=== PATIENT | male | born 1950 | race Caucasian/White ===

== ENCOUNTER 2018-02-06 12:51 | Emergency (ER) | payer OTHER, SELFPAY ==
[2018-02-06 12:51] VITALS: BP 156/76; PULSE 68; RESP 16; TEMP 36.6; O2SAT 98; BMI 35.1
--- NOTE | 2018-02-06 13:03 | RAD_ITS ---
STUDY: X-RAY - LEFT HAND REASON FOR EXAM: Male, 67 years old. Wound. Infection. Amputation 3 weeks ago. Diabetes. TECHNIQUE: 3 view(s) of the hand. COMPARISON: None. FINDINGS: There has been amputation of the third digit through the mid third middle phalanx. There is no gross destructive process of the bones, but osteomyelitis cannot be excluded. No soft tissue air. Heavily calcified arteries of the hand and digits consistent with diabetes. Normal visualized carpal bones. Normal carpal articulations Normal carpometacarpal articulation of the thumb. Normal second through fifth carpometacarpal joints. Normal metacarpi. Normal metacarpophalangeal joint of the thumb. Normal interphalangeal joint of the thumb. Normal proximal and distal phalanges of the thumb. Normal metacarpophalangeal joints of the second through fifth fingers. Normal proximal and distal interphalangeal joints of the second through fifth fingers. Normal phalanges of the second, fourth and fifth fingers. RAD/Hand Min 3 Views IMPRESSION: Amputation of the third digit through the mid third middle phalanx. There is no gross destructive process of the bones, but osteomyelitis cannot be excluded. No soft tissue air. Electronically Signed: Luis Garcia MD at 14:26 EST , Service support ,
--- NOTE | 2018-02-06 13:05 | ED.VISSUMM ---
- ER Visit Summary Date of Service: 02/06/18 Chief Complaint: Left middle finger pain, s/p amputation History of Present Illness: The patient is a 67 M who has left finger pain and drainage. The patient had an amputation of the distal part of the left middle finger 5 weeks ago. He had a revision 3 weeks ago. After the revision a culture grew out E. coli. He was on antibiotics. He states for the past week he has been doing well without any swelling or drainage. Yesterday the drainage and swelling reappeared. His surgeries was performed by Dr. Junior Beasley at [facility]. He is a kidney transplant recipient and is on immunosuppressants. Physical Examination: Vital signs reviewed. Left hand exam reveals a partial limitation of the third digit. He does have sutures in place. There is purulent drainage and it is malodorous. It is tender to palpation. He does have left hand swelling. Test Results: White blood cell count 12.3, ESR 15. Hand x-ray reveals no gross destructive process Emergency Department Course and Treatment: Zosyn IV. I spoke with Dr. Beasley at [facility]. He states that since the patient is complicated with his diabetes and kidney transplant he would recommend transfer to [facility]. I discussed this with Dr. Negron and he will accept the patient in transfer Treatment Plan: [] Disposition: Transfer Impression: Left third finger surgical site infection status post amputation This note was generated with [employer] dictation software. It may contain incorrect words, spelling, and punctuation that were not noted in review of the chart prior to signing ED Disposition - Plan for ED Patient: Chief Complaint: Wound Check Referrals: Mikayla Lopez MD [Primary Care Provider] -
--- NOTE | 2018-02-06 13:13 | ED.DCSUM_ITS ---
- ER Visit Summary Date of Service: 02/06/18 Chief Complaint: Left middle finger pain, s/p amputation History of Present Illness: The patient is a 67 M who has left finger pain and drainage. The patient had an amputation of the distal part of the left middle finger 5 weeks ago. He had a revision 3 weeks ago. After the revision a culture grew out E. coli. He was on antibiotics. He states for the past week he has been doing well without any swelling or drainage. Yesterday the drainage and swelling reappeared. His surgeries was performed by Dr. Junior Beasley at [place]. He is a kidney transplant recipient and is on immunosuppressants. Physical Examination: Vital signs reviewed. Left hand exam reveals a partial limitation of the third digit. He does have sutures in place. There is purulent drainage and it is malodorous. It is tender to palpation. He does have left hand swelling. Test Results: White blood cell count 12.3, ESR 15. Hand x-ray reveals no gross destructive process Emergency Department Course and Treatment: Zosyn IV. I spoke with Dr. Beasley at [facility]. He states that since the patient is complicated with his diabetes and kidney transplant he would recommend transfer to [facility]. I discussed this with Dr. Negron and he will accept the patient in transfer Treatment Plan: [] Disposition: Transfer Impression: Left third finger surgical site infection status post amputation This note was generated with [employer] dictation software. It may contain incorrect words, spelling, and punctuation that were not noted in review of the chart prior to signing ED Disposition - Plan for ED Patient: Chief Complaint: Wound Check Referrals: Mikayla Lopez MD [Primary Care Provider] -
[2018-02-06 13:42] LABS: Absolute Neutrophil Count 10.2 X10^3/uL (2.0-7.7); Anion Gap 3 (5-15); BUN 20 mg/dL (7-18); BUN/Creat Ratio 16.8 RATIO (10-20); Basophil# 0.04 X10^3/uL; Basophil% 0.3 % (0-1); Calcium,Total 8.9 mg/dL (8.5-10.1); Chloride 106 mmol/L (98-107); Creatinine, Serum 1.19 mg/dL (0.70-1.30); EST Glomerular Filtration Rate 65 mL/min (>60); Est Glom Filt Rate - Afr Amer 79 mL/min (>60); Glucose 110 mg/dL (74-106); Hematocrit 42.1 % (40-54); Hemoglobin 13.3 g/dl (13.0-16.5); Lymphocyte % 10.5 % (19-41); Mean Corp Hgb Conc 31.6 g/gl (32-36); Mean Corpuscular Hgb 28.3 pg (27.0-32.0); Mean Corpuscular Volume 89.6 fL (80-94); Mean Platelet Vol. 10.4 fl (6.2-12.0); Monocyte# 0.72 X10^3/uL; Monocyte% 5.8 % (0-10); Neutrophil # 10.17 X10^3/uL (2.7-7.7); Neutrophil % 82.5 % (47-70); Platelet Count 216 K/mm3 (150-450); Potassium 4.7 mmol/L (3.5-5.1); RBC Distribution Width CV 13.8 % (11.6-14.6); RBC Distribution Width SD 45.3 fl (35.1-43.9); Sodium Level 139 mmol/L (136-145); White Blood Count 12.3 K/mm3 (4.4-11.0)
[2018-02-06 13:44] LABS: POSITIVE COUNT NO; POSITIVE DIFFERENTIAL NO; POSITIVE MORPHOLOGY NO
[2018-02-06 13:49] LABS: Erythrocyte Sedimentation Rate 15 mm/hr (0-20)
[2018-02-06] MEDS: Piperacil/Tazobactam 3.375 GM/50 ML ML IV (14:59)
[2018-02-06 15:47] VITALS: BP 139/74; PULSE 65; RESP 17; O2SAT 96
[2018-02-06 17:13] VITALS: BP 197/82; PULSE 67; RESP 16; O2SAT 96
== END 2018-02-06 18:24 | disposition short-term general hospital (02) ==
LOC: ED 14:06
PROVIDERS: Emergency Provider Emergency Medicine; Family Provider Internal Medicine; PCP Internal Medicine
DX: T81.41XA Infection following a procedure, superficial incisional surgical site, initial encounter (principal); Y83.8 Other surgical procedures as the cause of abnormal reaction of the patient, or of later complication, without mention of misadventure at the time of the procedure; Z94.0 Kidney transplant status; Z89.022 Acquired absence of left finger(s); E11.9 Type 2 diabetes mellitus without complications; Z79.899 Other long term (current) drug therapy; Z79.4 Long term (current) use of insulin; Z79.82 Long term (current) use of aspirin
CPT/HCPCS: 73130; 80048; 85025; 85652; 96365; 96366; 99284; J7030

== ENCOUNTER → 2018-02-22 17:33 | Outpatient (CLI) | payer OTHER, SELFPAY ==
[2018-02-06 12:51] VITALS: BMI 35.1
[2018-02-22 17:55] LABS: Absolute Lymphocyte Count 1.86 X10^3/ul (0.83-4.51); Absolute Neutrophil Count 5.6 X10^3/uL (2.0-7.7); Basophil# 0.04 X10^3/uL; Basophil% 0.5 % (0-1); Eosinophil# 0.26 X10^3/uL; Hematocrit 37.2 % (40-54); Hemoglobin 11.6 g/dl (13.0-16.5); Lymphocyte # 1.86 X10^3/ul (4.0); Lymphocyte % 21.3 % (19-41); Mean Corp Hgb Conc 31.2 g/gl (32-36); Mean Corpuscular Hgb 28.2 pg (27.0-32.0); Mean Corpuscular Volume 90.3 fL (80-94); Mean Platelet Vol. 10.2 fl (6.2-12.0); Monocyte# 0.88 X10^3/uL; Monocyte% 10.1 % (0-10); Neutrophil # 5.56 X10^3/uL (2.7-7.7); Neutrophil % 63.6 % (47-70); Platelet Count 183 K/mm3 (150-450); RBC Distribution Width CV 14.6 % (11.6-14.6); RBC Distribution Width SD 47.3 fl (35.1-43.9); Red Blood Count 4.12 M/mm3 (4.6-6.2); White Blood Count 8.7 K/mm3 (4.4-11.0)
[2018-02-22 17:56] LABS: POSITIVE COUNT NO; POSITIVE DIFFERENTIAL NO; POSITIVE MORPHOLOGY NO
[2018-02-22 17:59] LABS: CRP 5.06 mg/L (0.0-3.0); Creatinine, Serum 1.34 mg/dL (0.70-1.30); EST Glomerular Filtration Rate 57 mL/min (>60); Est Glom Filt Rate - Afr Amer 69 mL/min (>60); Potassium 4.8 mmol/L (3.5-5.1)
[2018-02-22 19:36] LABS: Erythrocyte Sedimentation Rate 19 mm/hr (0-20)
== END ==
PROVIDERS: Family Provider Internal Medicine; PCP Internal Medicine
DX: M65.9 Synovitis and tenosynovitis, unspecified (principal); B95.2 Enterococcus as the cause of diseases classified elsewhere; B96.20 Unspecified Escherichia coli [E. coli] as the cause of diseases classified elsewhere
CPT/HCPCS: 36415; 82565; 84132; 85025; 85652; 86140

== ENCOUNTER 2018-03-01 12:34 | Outpatient (RCR) | payer OTHER, SELFPAY ==
[2018-03-01 12:54] LABS: Erythrocyte Sedimentation Rate 24 mm/hr (0-20)
[2018-03-01 13:01] LABS: Absolute Lymphocyte Count 1.53 X10^3/ul (0.83-4.51); Absolute Neutrophil Count 4.7 X10^3/uL (2.0-7.7); Basophil# 0.07 X10^3/uL; Eosinophil# 0.24 X10^3/uL; Eosinophils% 3.3 % (0-5); Hemoglobin 12.6 g/dl (13.0-16.5); Lymphocyte # 1.53 X10^3/ul (4.0); Mean Corp Hgb Conc 31.5 g/gl (32-36); Mean Corpuscular Hgb 28.2 pg (27.0-32.0); Mean Corpuscular Volume 89.5 fL (80-94); Mean Platelet Vol. 10.4 fl (6.2-12.0); Monocyte# 0.68 X10^3/uL; Monocyte% 9.3 % (0-10); Neutrophil # 4.71 X10^3/uL (2.7-7.7); Neutrophil % 64.7 % (47-70); Platelet Count 170 K/mm3 (150-450); RBC Distribution Width CV 14.4 % (11.6-14.6); RBC Distribution Width SD 46.9 fl (35.1-43.9); Red Blood Count 4.47 M/mm3 (4.6-6.2); White Blood Count 7.3 K/mm3 (4.4-11.0)
[2018-03-01 13:02] LABS: POSITIVE COUNT NO; POSITIVE DIFFERENTIAL NO; POSITIVE MORPHOLOGY NO
[2018-03-01 13:11] LABS: CRP < 2.90 mg/L (0.0-3.0); Creatinine, Serum 1.17 mg/dL (0.70-1.30); EST Glomerular Filtration Rate 66 mL/min (>60); Est Glom Filt Rate - Afr Amer 80 mL/min (>60); Potassium 4.2 mmol/L (3.5-5.1)
== END 2018-03-01 13:34 | disposition home or self-care (01) ==
LOC: HHLAB 12:34
PROVIDERS: Family Provider Internal Medicine; PCP Internal Medicine
DX: M65.9 Synovitis and tenosynovitis, unspecified (principal)
CPT/HCPCS: 82565; 84132; 85025; 85652; 86140

== ENCOUNTER 2018-11-05 09:23 | Emergency (ER) | payer OTHER, SELFPAY ==
[2018-11-05 09:26] VITALS: BP 146/71; PULSE 58; RESP 18; TEMP 36.4; O2SAT 97; BMI 33.6
--- NOTE | 2018-11-05 09:36 | VDLE_ITS ---
Reason For Study: Swelling Procedure LEFT Exam performed portable in ED. GSV is normal. A preliminary report was called and/or faxed CFV is compressible, spontaneous, phasic, to Abhijit. competent, and demonstrates normal augmentation. FV is compressible, spontaneous, phasic, competent and demonstrates normal augmentation. POP V is compressible, spontaneous, phasic, competent and demonstrates normal augmentation. T/P Trunk is compressible. PTV is compressible. LT PerV is compressible. Interpretation Summary Deep veins of the left lower extremity are patent and compressible segmentally. There is no evidence of left lower extremity deep vein thrombosis. Valvular competence appears intact within the proximal deep venous system on the left . The left great saphenous vein appears patent and compressible segmentally. Ordering Physician: Roberta Lacey Referring Physician: Mikayla Lopez M.D. Performed By: Theresa Altman RVT
--- NOTE | 2018-11-05 09:37 | ED.VIS.GEN ---
History of Present Illness Chief Complaint: Lower Extremity Injury Informant: Patient Onset: Days Narrative: Patient presents to the ED with left lower extremity bruising and edema. He noticed it 4 days ago. He does have a significant history of diabetic neuropathy so does not have feeling in his lower extremities. He denies any known trauma. He has no history of PE/DVT. No recent history of prolonged immobilization malignancy. He was seen at urgent care today and sent in for venous duplex of his left lower extremity. He denies any chest pain or shortness of breath. Past Medical History - Allergies and Home Meds Allergies/Adverse Reactions: Allergies No Known Allergies Allergy (Verified 11/05/18 09:26) Primary Care Physician: Mikayla Lopez MD [Primary Care Provider] - Surgical History: - - Several foot surgeries, wound debridements, fistula. Kidney transplant Smoking Status: Never smoker - Family History Maternal Family History: Reports: No pertinent history Review of Systems General: Denies: Chills, Fever, Sweats Eyes: Denies: Visual changes - bilaterally, Diplopia ENT: Denies: Rhinorrhea, Sore throat Cardiovascular: Denies: Chest pain, Palpitations Respiratory: Denies: Dyspnea, Cough, Dyspnea on exertion Gastrointestinal: Denies: Abdominal pain, Nausea, Vomiting, Diarrhea, Melena, Hematochezia Genitourinary: Denies: Dysuria, Hematuria, Frequency Musculoskeletal: Denies: Back pain, Extremity Pain Skin: Reports: - - Left lower extremity ecchymosis and edema. Denies: Rash, Wounds Neurological: Denies: Headache, Weakness, Numbness Physical Exam Vital Signs/Narrative: Vital Signs Temp Pulse Resp BP Pulse Ox 11/05/18 09:26 97.6 F L 58 L 18 146/71 H 97 General: Well nourished, Well developed, No Acute Distress Head: Normocephalic, Atraumatic Eyes: Perrl, EOMI ENT: Moist mucous membranes, No rhinorrhea Neck: Supple, Nontender Cardiovascular: Regular rate, Regular rhythm, No murmurs Respiratory: No distress, CTA bilaterally, Chest nontender Abdomen: Soft, Nontender, Nondistended, Normal bowel sounds Back: Nontender, Normal Inspection Extremities: No edema, - - Full range of motion of upper and lower extremities. Skin: No rash, - - Localized ecchymosis and edema to the left distal lower extremity, lateral aspect. Is in diameter. Patient is tender to palpation in this region. Neurological: Alert, Oriented x3, Cranial nerves II-XII grossly intact, Normal Strength, Normal Sensation Psychological: Normal affect, Normal Mood Diagnostic/Tx/Re-eval - Medical Decision Making Patient was sent here from urgent care for ultrasound of his left lower extremity to rule out thrombosis. Ultrasound was negative. Patient was educated this is most likely a contusion, he was educated on compression, ice, and [id number] analgesics. He was instructed to follow-up with PCP if symptoms persist or worsen. Educated on signs/symptoms to return to the ED. He is provided discharge instructions. He was agreeable to plan Disposition: Home stable Impression: Left lower extremity contusion ED Disposition - Plan for ED Patient: Disposition: Home or Assisted Living Diagnosis: Contusion Instructions: CONTUSION, Lower Extremity Referrals: Mikayla Lopez MD [Primary Care Provider] -
== END 2018-11-05 10:38 | disposition home or self-care (01) ==
PROVIDERS: Emergency Provider Physician Assistant; Family Provider Internal Medicine; PCP Internal Medicine
DX: S80.12XA Contusion of left lower leg, initial encounter (principal); X58.XXXA Exposure to other specified factors, initial encounter; Y93.9 Activity, unspecified; E11.40 Type 2 diabetes mellitus with diabetic neuropathy, unspecified; Z94.0 Kidney transplant status; Z79.4 Long term (current) use of insulin; Z79.82 Long term (current) use of aspirin; Z79.899 Other long term (current) drug therapy
CPT/HCPCS: 93971; 99282

== ENCOUNTER 2021-03-27 11:18 | Day surgery (SDC) | payer SELFPAY, OTHER ==
[2021-03-27] VITALS (8 sets, daily range): BP systolic 104–179; BP diastolic 62–96; PULSE 60–63; RESP 14–16; TEMP 36.7–37.3; O2SAT 92–100; BMI 33.5
[2021-03-27] MEDS: Lactated Ringers 1,000 ML 15 ML IV ×2 (11:50→13:06)
--- NOTE | 2021-03-27 13:00 | BON_PTH ---
PATIENT: MAHAD SULLIVAN [place] [facility] [id number] AGE/SX: 70/M ROOM: RE03/27/[address]: Dr. Juventino Sanchez DO : 1950 BED: DIS: 03/27/2021 SPEC #: [id number] RECD: 03/27/21 15:22 STATUS: LOS RERamila #: [id number] KINSEY: 03/27/21 13:[address]: Juventino Sanchez DEPT: SURGICAL PATHOLOGY RECD BY: Sridevi Salamanca ENTERED: 03/28/21 07:05 SP TYPE: Bone OTHR DR: Dr. Mikayla Lopez MD Tissues: Finger, NOS Procedures: Decalcification bone/plaque Surgery Specimen Level IV HEADER OPERATION: Ring finger distal interphalangeal joint amputation PRE-OP DIAGNOSIS: Acute osteomyelitis left hand TISSUE SUBMITTED: Left ring finger MICROSCOPIC DIAGNOSIS Left ring finger, amputation: Focal ulceration, acute inflammation and granulation tissue reaction. Underlying bone with acute osteomyelitis. DAVID:cony 04/01/2021 MICROSCOPIC DESCRIPTION Slides are reviewed. GROSS DESCRIPTION Received in fixative is one container labeled with the patient's name and designated left ring finger. The specimen consists of a portion of finger measuring 1.7 x 1.5 x 1.5 cm. A focal area of ulceration is noted at the tip of the finger measuring 0.4 cm in greatest dimension. Nail is also present. Food And Beverage Assistant Manager sections are submitted in two cassettes as follows: 1 ? skin with area of ulceration, 2 ? bone after decalcification. / DAVID:cony 03/28/2021 TC:2 CPT: 14544, 04041
[2021-03-27] MEDS: Cefazolin 2 GM in 0.9% Normal Saline 100 ML IV (13:09)
[2021-03-27] MEDS: Lidocaine 1% (30 ml sdv) 30 ML Vial (13:25)
[2021-03-27] MEDS: Mupirocin Ointment 22gm Tube 1 APPLIC (13:44)
--- NOTE | 2021-03-27 13:49 | PCM.DC ---
Discharge Instructions Follow Up Care Test Results: Test results from this visit will be discussed in further detail at your follow-up appointment, if applicable. Discharge Plan Admission Attending Provider: Juventino Sanchez Primary Care Provider: Mikayla Lopez Instructions Additional Instructions / Restrictions: Follow preprinted instructions from your surgeon's office. Discharge Orders/Prescriptions Prescriptions: New hydrocodone-acetaminophen 5-325 mg tablet 1 tab PO Q6H PRN (Reason: pain) 5 Days Qty: 20 RF: 0 sulfamethoxazole-trimethoprim [Bactrim DS] 800-160 mg tablet 1 tab PO BID 10 Days Qty: 20 RF: 0 Continued aspirin 81 MG tablet 81 mg PO DAILY RF: 0 niacin [Slo-Niacin] 250 MG tablet extended release 500 mg PO DAILY RF: 0 metoprolol tartrate 50 MG tablet 50 mg PO BID RF: 0 rosuvastatin [Crestor] 20 MG tablet 20 mg PO QHS RF: 0 mycophenolate mofetil [CellCept] 500 MG tablet 500 mg PO BID RF: 0 prednisone 2.5 MG tablet 5 mg PO DAILY RF: 0 tacrolimus [Prograf] 1 MG capsule 1 mg PO BID RF: 0 famotidine 20 MG tablet 20 mg PO QHS RF: 0 cholecalciferol (vitamin D3) [Vitamin D3] 1,000 UNIT tablet 2,000 unit PO DAILY RF: 0 insulin aspart U-100 [Novolog Flexpen U-100 Insulin] 100 UNITS/ML insulin pen See Protocol units subcut CONT RF: 0 Referrals / Follow Up: Mikayla Lopez MD [Primary Care Provider] - Juventino Sanchez DO [STAFF PHYSICIAN] - In 1 Week Disposition Disposition (needs filled in before D/C Order can be placed): Home, Self Care
--- NOTE | 2021-03-27 13:49 | PCM.OPRPT ---
Report of Operation Date of Procedure: 03/27/21 Description of Surgical Findings:: Preoperative diagnosis: Left ring finger distal phalanx osteomyelitis Postoperative diagnosis: Left ring finger distal phalanx osteomyelitis Procedure: Left ring finger partial amputation at the middle phalanx level Surgeon: Juventino Sanchez DO Sales Consulting Director: None Anesthesia: MAC with ring block Anesthesiologist: Dr. Gould Complications: None Drains: None Estimated blood loss: 10 cc Urinary output: None IV fluids: Per anesthesia record Specimens: Left ring fingertip for culture Surgical implants: None Surgical indications: This is a 70-year-old male with uncontrolled diabetes mellitus type 2, neuropathy, chronic renal disease with renal transplant, history of finger amputation from infection, history of foot amputation from infection who was seen in the outpatient setting due to a wound on his left ring finger. X-rays and physical exam demonstrated the the wound had exposed distal phalanx. Patient denied prior injury. With the chronically exposed bone, osteomyelitis was evident. I recommended an amputation at the level of at the least the distal interphalangeal joint. The risk, benefits, alternatives to the procedure reviewed with patient at length and he agreed to proceed. Risks included but were not limited to, persistent pain, need for additional amputation, persistent infection, need for additional surgery, DVT or PE, neurovascular injury, finger deformities, loss of warehouse shipper strength, loss of hand function. Patient expressed understand these risks wished proceed with surgery. Description of procedure: Patient was identified in the preoperative holding area by name, medical record number, date of . The operative extremity was marked. All questions answered patient satisfaction and informed site was confirmed. At time of his procedure, patient was brought to the operative suite and positioned supine a standard operating table with all bony prominences being well-padded. MAC anesthesia was administered. I then prepped the base of the finger with rubbing alcohol performed a ring block with 10 cc 1% plain lidocaine. We then prepped and draped the left hand and wrist in normal, sterile orthopedic fashion with Betadine. We then performed a timeout with all parties in attendance in agreement the side, site, operation be performed. No concerns were voiced and elected proceed with surgery. 2 g Ancef was administered prior to the incision by the anesthesia staff. I then applied a turnicot at the base of the left ring finger. I planned a fishmouth incision at the level of the distal interphalangeal joint. Full-thickness incision was made down to bone. I then amputated the distal phalanx at the distal interphalangeal joint. This was sent for culture. I then resected the chondral surface at the tip of the middle phalanx. Slight undermining of the tissues allowed for easy approximation of the soft tissues over the bone. I thoroughly irrigated the wound. Turnicot was removed. Bleeding was slightly sluggish at first but then brisk. I utilized bipolar cautery for hemostasis. I then closed the wound in interrupted simple fashion with 4-0 Prolene suture. Bactroban and bulky sterile compression dressing was then applied. Patient was then safely awoken in the operative suite transferred to his gurney and subsequently to PACU in stable condition. Postoperative plan: Follow-up in 1 week. Maintain surgical dressing until then. Prescription for Bactrim DS for 10 days was provided as well as a prescription for [place]. Nonweightbearing to the operative extremity. No x-rays needed in the office. Written and verbal instructions provided.
== END 2021-03-27 23:59 | disposition home or self-care (01) ==
LOC: SDC 11:22 → AC 11:22
PROVIDERS: PCP Internal Medicine; Referring Provider Student in an Organized Health Care Education/Training Program; Visit Provider Student in an Organized Health Care Education/Training Program
PROC: (CPT 26236; principal; 2021-03-27 12:45)
DX: E13.69 Other specified diabetes mellitus with other specified complication (principal); M86.142 Other acute osteomyelitis, left hand; E11.22 Type 2 diabetes mellitus with diabetic chronic kidney disease; E11.40 Type 2 diabetes mellitus with diabetic neuropathy, unspecified; Z79.4 Long term (current) use of insulin; M84.445A Pathological fracture, left finger(s), initial encounter for fracture; I12.9 Hypertensive chronic kidney disease with stage 1 through stage 4 chronic kidney disease, or unspecified chronic kidney disease; N18.9 Chronic kidney disease, unspecified; E78.00 Pure hypercholesterolemia, unspecified; E66.8 Other obesity; Z71.3 Dietary counseling and surveillance; Z68.34 Body mass index [BMI] 34.0-34.9, adult; Z94.0 Kidney transplant status; Z79.82 Long term (current) use of aspirin; Z79.899 Other long term (current) drug therapy; Z20.822 Contact with and (suspected) exposure to COVID-19
CPT/HCPCS: 26236; 01830; 87426; 88305; 88311; C9803; J7120; J2405

== ENCOUNTER 2021-04-25 11:24 | Day surgery (SDC) | payer SELFPAY, OTHER ==
[2021-04-25] VITALS (7 sets, daily range): BP systolic 103–143; BP diastolic 58–78; PULSE 54–60; RESP 16–18; TEMP 36.3–36.8; O2SAT 91–100; BMI 34.1
[2021-04-25] MEDS: Lactated Ringers 1,000 ML 15 ML IV (12:03)
[2021-04-25 12:21] LABS: Bedside Glucose 201 mg/dL (70-110)
[2021-04-25] MEDS: Cefazolin 2 GM in 0.9% Normal Saline 100 ML IV (13:30)
[2021-04-25] MEDS: Lidocaine 1% (20 ml mdv) 20 ML Vial (13:35)
[2021-04-25] MEDS: Mupirocin Ointment 22gm Tube 1 APPLIC (13:56)
--- NOTE | 2021-04-25 13:57 | PCM.DC ---
Discharge Instructions Follow Up Care Test Results: Test results from this visit will be discussed in further detail at your follow-up appointment, if applicable. Discharge Plan Admission Attending Provider: Juventino Sanchez Primary Care Provider: Mikayla Lopez Instructions Additional Instructions / Restrictions: Follow preprinted instructions from your surgeons office. Discharge Orders/Prescriptions Prescriptions: New doxycycline hyclate 50 mg capsule 50 mg PO BID 14 Days Qty: 28 RF: 0 No Action aspirin 81 MG tablet 81 mg PO DAILY RF: 0 niacin [Slo-Niacin] 250 MG tablet extended release 500 mg PO DAILY RF: 0 metoprolol tartrate 50 MG tablet 50 mg PO BID RF: 0 rosuvastatin [Crestor] 20 MG tablet 20 mg PO QHS RF: 0 mycophenolate mofetil [CellCept] 500 MG tablet 500 mg PO BID RF: 0 prednisone 2.5 MG tablet 5 mg PO DAILY RF: 0 tacrolimus [Prograf] 1 MG capsule 1 mg PO BID RF: 0 famotidine 20 MG tablet 20 mg PO QHS RF: 0 cholecalciferol (vitamin D3) [Vitamin D3] 1,000 UNIT tablet 2,000 unit PO DAILY RF: 0 insulin aspart U-100 [Novolog Flexpen U-100 Insulin] 100 UNITS/ML insulin pen See Protocol units subcut CONT RF: 0 hydrocodone-acetaminophen 5-325 mg tablet 1 tab PO Q6H PRN (Reason: pain) 5 Days Qty: 20 RF: 0 sulfamethoxazole-trimethoprim [Bactrim DS] 800-160 mg tablet 1 tab PO BID 10 Days Qty: 20 RF: 0 Referrals / Follow Up: Mikayla Lopez MD [Primary Care Provider] - Juventino Sanchez DO [STAFF PHYSICIAN] - In 1 Week Disposition Disposition (needs filled in before D/C Order can be placed): Home, Self Care
[2021-04-25 14:11] LABS: Bedside Glucose 162 mg/dL (70-110)
--- NOTE | 2021-04-26 12:02 | OP.PCM_ITS ---
Report of Operation Date of Procedure: 04/25/21 Description of Surgical Findings:: Preoperative diagnosis: Left ring finger amputation dehiscence and deep infection Postoperative diagnosis: Left ring finger amputation dehiscence and deep infection Procedure: Left ring finger revision amputation at the middle phalanx level Surgeon: Juventino Sanchez DO Financial Sales Representative: None Anesthesia: MAC with ring block Anesthesiologist: Dr. Yusuf / Daniel Moss CRNA Complications: None apparent Drains: None Estimated blood loss: 10 cc Urinary output: None IV fluids: Per anesthesia record Specimens: Fluid culture for aerobic, anaerobic, fungal, mycobacterial Surgical implants: None Surgical indications: This is a 70-year-old male with uncontrolled diabetes mellitus type 2, neuropathy, chronic renal disease with renal transplant, history of finger amputation from infection, history of foot amputation from infection who was seen in the outpatient setting due to a wound on his left ring finger. X-rays and physical exam demonstrated the the wound had exposed distal phalanx. Patient denied prior injury. With the chronically exposed bone, osteomyelitis was evident. I recommended an amputation at the level of at the least the distal interphalangeal joint. He underwent this uncomplicated procedure approximately 1 month ago. Sutures removed at 2 weeks and the wound appeared benign. Several days after suture removal, the wound had significant dehiscence. I saw the patient last week and exam demonstrated exposed middle phalanx and complete dehiscence of the amputation site. There was also purulent fluid expressed from the wound in the office. I recommended revision amputation of the left ring finger. The risk, benefits, alternatives to procedure reviewed with patient at length. He agreed to proceed. Informed consent obtained in the office. Description of procedure: Patient was identified in the preoperative holding area by name, medical record number, date of . The operative extremity was marked. All questions answered patient satisfaction and informed site was confirmed. At time of his procedure, patient was brought to the operative suite and positioned supine a standard operating table with all bony prominences being well-padded. MAC anesthesia was administered. I then prepped the base of the finger with rubbing alcohol performed a ring block with 10 cc 1% plain lidocaine. We then prepped and draped the left hand and wrist in normal, sterile orthopedic fashion with Betadine. We then performed a timeout with all parties in attendance in agreement the side, site, operation be performed. No concerns were voiced and elected proceed with surgery. 2 g Ancef was administered prior to the incision by the anesthesia staff. I first attempted to express purulent material from the wound. I was able to express approximately 1 cc of purulence along the volar aspect of the exposed bone. This was swabbed for culture and sent for aerobic, anaerobic, fungal, and mycobacterial cultures. I then excised the peripheral 1 mm of the skin and soft tissue surrounding the bone to a healthy bleeding base. I then debrided approximately 3 mm of additional middle phalanx to reduce tension on the wound. Wound was copiously irrigated with normal saline solution. I reapproximated the dermis with buried 3-0 Vicryl suture and the skin with interrupted simple 4-0 Prolene suture. Bactroban and bulky sterile compression dressing was then applied. Patient was then safely awoken in the operative suite transferred to his rharshaw and subsequently to PACU in stable condition. Postoperative plan: Follow-up in 1 week. Maintain surgical dressing for 3 days then okay to remove and shower. Prescription for doxycycline x14 days was provided. Recommended to oral Tylenol for pain relief. Nonweightbearing to the operative extremity. No x-rays needed in the office. Written and verbal instructions provided.
== END 2021-04-25 23:59 | disposition home or self-care (01) ==
LOC: SDC 11:26 → AC 11:27
PROVIDERS: PCP Internal Medicine; Referring Provider Student in an Organized Health Care Education/Training Program; Visit Provider Student in an Organized Health Care Education/Training Program
PROC: (CPT 26989; principal; 2021-04-25 12:45)
DX: T87.81 Dehiscence of amputation stump (principal); Z89.422 Acquired absence of other left toe(s); Z89.431 Acquired absence of right foot; M86.142 Other acute osteomyelitis, left hand; E11.22 Type 2 diabetes mellitus with diabetic chronic kidney disease; E11.40 Type 2 diabetes mellitus with diabetic neuropathy, unspecified; E11.69 Type 2 diabetes mellitus with other specified complication; Z79.4 Long term (current) use of insulin; T81.42XA Infection following a procedure, deep incisional surgical site, initial encounter; X58.XXXA Exposure to other specified factors, initial encounter; I12.9 Hypertensive chronic kidney disease with stage 1 through stage 4 chronic kidney disease, or unspecified chronic kidney disease; N18.9 Chronic kidney disease, unspecified; E78.00 Pure hypercholesterolemia, unspecified; E66.8 Other obesity; Z71.3 Dietary counseling and surveillance; Z94.0 Kidney transplant status; Z68.34 Body mass index [BMI] 34.0-34.9, adult; Z79.82 Long term (current) use of aspirin; Z79.899 Other long term (current) drug therapy; Z20.822 Contact with and (suspected) exposure to COVID-19
CPT/HCPCS: 26989; 82962; 87070; 87075; 87102; 87205; 87206; 87426; J7120; J2405

== ENCOUNTER 2022-02-26 01:31 | Inpatient (IN) | payer OTHER, SELFPAY ==
[2022-02-26] VITALS (18 sets, daily range): BP systolic 112–150; BP diastolic 48–74; PULSE 70–82; RESP 16–28; TEMP 36.6–37.5; O2SAT 59–98; BMI 32.9; BMI 31.6
--- NOTE | 2022-02-26 01:39 | RAD_ITS ---
EXAM: XR CHEST, 1 VIEW CLINICAL INDICATION: fever, cough TECHNIQUE: Frontal view of the chest. This report was created using [employer] report generation technology. COMPARISON: Previous chest radiographs of 03/12/2013 and 03/11/2013. FINDINGS: LUNGS AND PLEURAL SPACES: Linear atelectasis or scarring in the lower lungs. In addition, mild patchy airspace disease has developed within the left lower lung, consistent with pneumonia. No pneumothorax. No pleural effusion. HEART: Heart size is borderline enlarged with normal pulmonary vasculature for technique. MEDIASTINUM: Mild elongation and calcification of the thoracic aorta. No hilar enlargement. BONES/JOINTS: Minimal thoracic levoscoliosis with lower thoracic degenerative spurring. SOFT TISSUES: Unremarkable. RAD/Chest 1 View (Portable) IMPRESSION: Discoid atelectasis or scarring at both lung bases. Patchy pneumonia in the left lower lung. Electronically Signed: Freddy Teague MD at 3:08 EST ,
[2022-02-26] MEDS: 0.9% Normal Saline 1,000 ML 150 ML IV (02:00)
--- NOTE | 2022-02-26 02:04 | EX.ED.DYSGE1 ---
HPI History of Present Illness Chief Complaint: General Illness Informant: patient Onset/Context/Timing Onset: Days (4 to 5-day) Context: Gradual Onset Timing: Waxes and wanes Narrative Narrative: Patient presents secondary to body aches and just not feeling well over the past 4 to 5 days. He states he felt pretty rough for the first couple days and then felt better. Yesterday and today seem to be worse again. He did not measure his temperature at home. He has had cough. He is vomited a few times and had some diarrhea. He complains of body aches and headache. [facility] Medical History (Updated 02/26/22 @ 04:[address] Ness Bell MD) Ambulates with cane Amputation finger Amputation of toe Anemia of chronic disease Atrial fibrillation Diabetes mellitus, type II Gastric reflux History of steroid therapy HLD (hyperlipidemia) Hypertension Hypertension Insulin dependent diabetes mellitus Wears dentures Wears glasses Wears hearing aid Home Medications aspirin 81 mg tablet,delayed release 81 mg PO DAILY 11/29/12 [History Last Taken 04/22/21] metoprolol tartrate 50 mg tablet 50 mg PO BID 11/29/12 [History Last Taken 04/25/21 08:00] niacin 250 mg tablet,extended release (Slo-Niacin) 500 mg PO DAILY 11/29/12 [History Last Taken 05/18/15 09:00] rosuvastatin 20 mg tablet (Crestor) 20 mg PO QHS 11/29/12 [History Last Taken 05/17/15] famotidine 20 mg tablet 20 mg PO QHS 05/11/15 [History Last Taken 05/17/15] mycophenolate mofetil 500 mg tablet (CellCept) 500 mg PO BID 05/11/15 [History Last Taken 04/25/21 08:00] prednisone 2.5 mg tablet 5 mg PO DAILY 05/11/15 [History Last Taken 04/25/21 08:00] tacrolimus 1 mg capsule, immediate-release (Prograf) 1 mg PO BID 05/11/15 [History Last Taken 05/18/15 09:00] cholecalciferol (vitamin D3) 25 mcg (1,000 unit) tablet (Vitamin D3) 2,000 unit PO DAILY 05/17/15 [History Last Taken 05/18/15] insulin aspart U-100 100 unit/mL (3 mL) subcutaneous pen (Novolog Flexpen U-100 Insulin aspart) See Protocol subcut CONT 02/06/18 [History Last Taken 02/06/18] hydrocodone-acetaminophen 5-325mg 5mg-325mg 1 tab PO Q6H PRN pain 5 days #20 tabs 03/27/21 [Rx Last Taken Unknown] sulfamethoxazole 800 mg-trimethoprim 160 mg tablet (Bactrim DS) 1 tab PO BID 10 days #20 tabs 03/27/21 [Rx Last Taken Unknown] doxycycline hyclate 50 mg capsule 50 mg PO BID 14 days #28 caps 04/25/21 [Rx Last Taken Unknown] Allergy/AdvReac Type Severity Reaction Status Date / Time No Known Allergies Allergy Verified 02/26/22 01:40 Family History (Updated 02/26/22 @ 03:[address] Jamee Vargas MD) Mother Kidney disease Hypertension High cholesterol Diabetes Father Kidney disease Hypertension High cholesterol Diabetes Surgical History (Updated 02/26/22 @ 03:[address] Jamee Vargas MD) Amputation of foot Hx of kidney transplant Hx of surgical amputation of finger Renal transplant recipient Social History Smoking Status: Former smoker alcohol intake: current alcohol intake frequency: 0-2 drinks per day substance use type: does not use what type of physical activity do you participate in: walking ROS ROS ED Constitutional Constitutional ED: Denies chills or fever(s) Eyes Eyes: Denies change in vision or discharge from eye(s) ENT ENT ED: Denies discharge from eye(s), rhinorrhea or sore throat Cardiovascular Cardiovascular: Denies chest pain or palpitations Respiratory/Chest Respiratory/Chest: Reports cough and dyspnea Gastrointestinal Gastrointestinal: Reports diarrhea, nausea and vomiting Genitourinary Genitourinary ED: Denies dysuria Musculoskeletal Musculoskeletal: Reports myalgias; Denies back pain or extremity pain Integumentary Denies Abrasions or rash Neurologic Neurologic: Reports headache(s) and weakness Psychiatric Psychiatric: Denies anxiety or depression Allergic/Immunologic Allergic/Immunologic ED: Denies lip swelling or urticaria EXAM Physical Exam Const Vital Signs: 02/26/22 01:33 02/26/22 01:39 02/26/22 01:40 Temperature 99.1 F 99.1 F Temperature Source Temporal Temporal Pulse Rate 82 77 Respiratory Rate 26 H 28 H Respiratory Effort Normal Non-Labored Respiratory Pattern Normal Blood Pressure 112/48 L 112/48 L Blood Pressure Mean 69 69 Pulse Ox 93 93 Oxygen Delivery Method Room Air Room Air 02/26/22 03:32 Temperature Temperature Source Pulse Rate 73 Respiratory Rate 25 H Respiratory Effort Respiratory Pattern Blood Pressure 136/62 H Blood Pressure Mean 86 Pulse Ox 90 Oxygen Delivery Method Room Air Positive well nourished and well developed General Appearance ED: well developed HEENT Reports normocephalic and head/scalp atraumatic Eyes PERRL and EOMs intact bilaterally Neck supple Chest Wall inspection of chest normal and palpation of chest normal Resp normal respiratory effort and clear to auscultation bilaterally Cardio regular rate and regular rhythm GI non-tender Auscultation: hypoactive bowel sounds Palpation: soft Back/Spine no CVA tenderness Extremity Extremity Narrative: Prior right midfoot amputation. Neuro oriented x3 and no sensory deficits noted Sensorium / Orientation: alert Motor Exam: strength 5/5 throughout Psych mental status grossly normal Skin no rashes or lesions noted MDM MDM MDM Narrative Medical decision making narrative: Patient was noted to be febrile with EMS. He was given Tylenol prior to arrival. EKG, chest x-ray, urinalysis, lab work obtained. Swab for COVID and influenza ordered. Blood and urine cultures obtained. Lab Data Attestation: I reviewed the patient's lab results. Labs: Laboratory Results - last 24 hr 02/26/22 02/26/22 02/26/22 01:51 01:51 01:51 WBC 8.9 RBC 4.29 L Hgb 11.9 L Hct 37.9 L MCV 88.3 MCH 27.7 MCHC 31.4 L RDW Std Deviation 42.5 RDW Coeff of [place] 13.2 Plt Count 159 MPV 10.6 Immature Gran % (Auto) 0.300 Neut % (Auto) 85.9 H Lymph % (Auto) 8.5 L [place] % (Auto) 5.2 Eos % (Auto) 0.0 Baso % (Auto) 0.1 Absolute Neuts (auto) 7.6 Absolute Lymphs (auto) 0.75 L Nucleated RBC % 0 Sodium 138 Potassium 3.5 Chloride 105 Carbon Dioxide 27.0 Anion Gap 6 BUN 31 H Creatinine 1.17 Estim Creat Clear Calc 61.53 Est GFR (MDRD) Af Amer 79 Est GFR (MDRD) Non-Af 66 BUN/Creatinine Ratio 26.5 H Glucose 98 Lactic Acid 1.2 Calcium 8.4 L Total Bilirubin 0.60 Direct Bilirubin 0.24 AST 17 ALT 14 L Alkaline Phosphatase 41 L Total Protein 5.5 L Albumin 2.8 L Globulin 2.7 Urine Color Urine Clarity Urine pH Ur Specific [place] Urine Protein Urine Glucose (UA) Urine Ketones Urine Occult Blood Urine Nitrite Urine Bilirubin Urine Urobilinogen Ur Leukocyte Esterase Urine RBC Urine WBC Ur Squamous Epith Cells Urine Bacteria Hyaline Casts Urine Mucus 02/26/22 03:35 WBC RBC Hgb Hct MCV MCH MCHC RDW Std Deviation RDW Coeff of [place] Plt Count MPV Immature Gran % (Auto) Neut % (Auto) Lymph % (Auto) [place] % (Auto) Eos % (Auto) Baso % (Auto) Absolute Neuts (auto) Absolute Lymphs (auto) Nucleated RBC % Sodium Potassium Chloride Carbon Dioxide Anion Gap BUN Creatinine Estim Creat Clear Calc Est GFR (MDRD) Af Amer Est GFR (MDRD) Non-Af BUN/Creatinine Ratio Glucose Lactic Acid Calcium Total Bilirubin Direct Bilirubin AST ALT Alkaline Phosphatase Total Protein Albumin Globulin Urine Color Yellow Urine Clarity Clear Urine pH 5.0 Ur Specific [place] 1.020 Urine Protein 30 H Urine Glucose (UA) Normal Urine Ketones 5 H Urine Occult Blood Negative Urine Nitrite Negative Urine Bilirubin 1 H Urine Urobilinogen 1 H Ur Leukocyte Esterase 25 H Urine RBC 0-5 SEEN Urine WBC 5-10 SEEN Ur Squamous Epith Cells 0 SEEN Urine Bacteria 1+ Hyaline Casts 0-5 SEEN Urine Mucus 0 SEEN Radiography Chest X-Ray - ED: 1 View, Read by ED Physician and Left Infiltrate Diagnostic Testing: Clinical Impression(s) from Imaging Studies Chest X-Ray 02/26/22 01:39 IMPRESSION: Discoid atelectasis or scarring at both lung bases. Patchy pneumonia in the left lower lung. Electronically Signed: Freddy Teague MD at 3:08 EST , EKG Initial EKG: Attestation: I personally reviewed and interpreted this EKG as follows: Interpretation: Sinus Rhythm (Sinus at 74 with no acute ischemia.) Treatment and Re-Evaluation Narrative: Swab for COVID and influenza are negative. CBC reveals normal white count 8.9 but left shift is appreciated. Chemistry studies reveal a BUN of 31 and a creatinine 1.17. Lactic acid is 1.2. LFTs are unremarkable. Urinalysis reveals 1+ bacteria with 5-10 white cells. Nitrites are negative. Portable chest x-ray per my interpretation reveals concern for early left lower lobe infiltrate. Radiology interpretation is reviewed and they do feel patient has patchy pneumonia in the left lower lung. Patient was given a dose of p.o. Levaquin. He was able to ambulate to the restroom and back and his O2 sat maintained at 90%. When I went back to have discussion with patient and regarding test results his O2 sat dropped to 86% on room air. At this time he is placed back on 2 L nasal cannula. I will speak with the hospitalist regarding admission. Discharge Plan Triage Chief Complaint: General Illness ED Provider: Ness Bell Dx/Rx/DC Orders Clinical Impression: Pneumonia, Hypoxia Prescriptions: No Action aspirin 81 MG tablet 81 mg PO DAILY Label Comments: HEART HEALTH niacin [Slo-Niacin] 250 MG tablet extended release 500 mg PO DAILY Label Comments: SUPPLEMENT metoprolol tartrate 50 MG tablet 50 mg PO BID Label Comments: BLOOD PRESSURE rosuvastatin [Crestor] 20 MG tablet 20 mg PO QHS Label Comments: decrease cholesterol mycophenolate mofetil [CellCept] 500 MG tablet 500 mg PO BID Label Comments: ANTI-REJECTION MED prednisone 2.5 MG tablet 5 mg PO DAILY Label Comments: STEROID tacrolimus [Prograf] 1 MG capsule 1 mg PO BID Label Comments: KIDNEYS famotidine 20 MG tablet 20 mg PO QHS Label Comments: GERD cholecalciferol (vitamin D3) [Vitamin D3] 1,000 UNIT tablet 2,000 unit PO DAILY Label Comments: SUPPLEMENT insulin aspart U-100 [Novolog Flexpen U-100 Insulin] 100 UNITS/ML insulin pen See Protocol subcut CONT Protocol: 6. Sliding Scale Insulin Custom Condition: mg/dl range Dose/Route: Number of Units Instruction: using insulin pump Protocol Text: Custom Sliding Scale Rx Instructions: insulin pump hydrocodone-acetaminophen 5-325 mg tablet 1 tab PO Q6H PRN (Reason: pain) 5 Days Qty: 20 0RF sulfamethoxazole-trimethoprim [Bactrim DS] 800-160 mg tablet 1 tab PO BID 10 Days Qty: 20 0RF doxycycline hyclate 50 mg capsule 50 mg PO BID 14 Days Qty: 28 0RF Primary Care Provider: Mikayla Lopez Referrals: Mikayla Lopez MD [Primary Care Provider] - Disposition Disposition: Acute Care Hospital [facility]
[2022-02-26 02:05] LABS: Absolute Lymphocyte Count 0.75 X10^3/uL (0.83-4.51); Absolute Neutrophil Count 7.6 X10^3/uL (2.0-7.7); Basophil# 0.01 X10^3/uL; Basophil% 0.1 % (0-1); Hematocrit 37.9 % (40-54); Hemoglobin 11.9 g/dL (13.0-16.5); Lymphocyte # 0.75 X10^3/ul (0.83-4.51); Lymphocyte % 8.5 % (19-41); Mean Corp Hgb Conc 31.4 g/dL (32-36); Mean Corpuscular Hgb 27.7 pg (27.0-32.0); Mean Corpuscular Volume 88.3 fL (80-94); Mean Platelet Vol. 10.6 fl (6.2-12.0); Monocyte# 0.46 X10^3/uL; Monocyte% 5.2 % (0-10); NRBC Flagged by Analyzer 0 % (0-5); Neutrophil % 85.9 % (47-70); Platelet Count 159 K/mm3 (150-450); RBC Distribution Width CV 13.2 % (11.6-14.6); RBC Distribution Width SD 42.5 fl (35.1-43.9); Red Blood Count 4.29 M/mm3 (4.6-6.2); White Blood Count 8.9 K/mm3 (4.4-11.0)
[2022-02-26 02:26] LABS: AST(SGOT) 17 U/L (15-37); Alanine Aminotransfer ALT/SGPT 14 U/L (16-61); Albumin, Serum 2.8 g/dL (3.2-5.0); Alkaline Phosphatase 41 U/L (45-117); Anion Gap 6 (5-15); BUN 31 mg/dL (7-18); BUN/Creat Ratio 26.5 RATIO (10-20); Bilirubin, Direct 0.24 mg/dL (0.00-0.30); Calcium,Total 8.4 mg/dL (8.5-10.1); Chloride 105 mmol/L (98-107); Creatinine, Serum 1.17 mg/dL (0.70-1.30); EST Glomerular Filtration Rate 66 mL/min (>60); Est Glom Filt Rate - Afr Amer 79 mL/min (>60); Estimated Creatinine Clearance 61.53 ml/min; Globulin 2.7 g/dL (2.2-4.2); Glucose 98 mg/dL (74-106); Potassium 3.5 mmol/L (3.5-5.1); Protein, Total 5.5 g/dL (6.4-8.2); Sodium Level 138 mmol/L (136-145)
[2022-02-26 02:28] LABS: Lactic Acid 1.2 mmol/L (0.4-1.9)
[2022-02-26 03:43] LABS: Mucous, Urine 0 SEEN /hpf (<or=2+); Squamous Epithelial Cells - UA 0 SEEN /hpf (0-5)
[2022-02-26 03:44] LABS: Color, Urine Yellow (Yellow); Glucose, Dipstick Normal (Normal); Ketone-Dipstick 5 mg/dl (Negative); Leukocyte Esterase-Dipstick 25 /ul (Negative); Nitrite-Dipstick Negative (Negative); Occult Blood-Urine Negative /ul (Negative); Protein-Dipstick 30 mg/dl (Negative); Urine Clarity Clear (Clear); Urine Urobilinogen 1 mg/dl (Normal)
[2022-02-26 03:52] LABS: Urine Bilirubin Dipstick 1 mg/dL (Negative)
[2022-02-26 03:54] LABS: Bacteria 1+ /hpf (None Seen); Red Blood Cells-Urine 0-5 SEEN /hpf (0-5); White Blood Cells 5-10 SEEN /hpf (0-5)
[2022-02-26 03:55] LABS: Hyaline Cast 0-5 SEEN /lpf (0-5)
[2022-02-26] MEDS: levoFLOXacin 750 MG Tablet PO (04:14)
--- NOTE | 2022-02-26 04:14 | HP.PCM.HOS_ITS ---
HPI - General General Date of Admission: 02/26/22 Date of Service: 02/26/22 Chief Complaint: Cough, dyspnea, N/V/D, headache. HPI Narrative The patient is a 71 y/o M w/ PMHx: Former tobacco use, Obesity, GERD, HTN, HLD, IDDM w/ Insulin pump, Chronic neuropathy, PAF, Chronic anemia/AOCD, Hx prior ESRD s/p Renal Transplant now CKD stage II who presents to the [facility] ED on 02/26/22 with history of significant fatigue, malaise, myalgias over the last 4 to 5 days with subjective fever, cough, nausea and emesis as well as some loose stools in addition to mild headache not improving prompting eventual ED evaluation. Patient lives with his spouse as well as his children and grandchildren and notes that several of the grandchildren and his children were ill with a viral syndrome but seem to have since improved and unfortunately he became ill with them. Work-up in the ED included T99.1, heart rate 77, BP 112/48, respiratory rate 28, 93% on room air unfortunately becoming hypoxic with any exertion and to be 86% on room air improving to 95% on 2 L nasal cannula, CBC with WC 8.9, hemoglobin 11.9, MCV 88.3, platelet 159 with increased dolores trophils and lymphopenia, CMP with BUN/creatinine 31/1.17, lactic acid 1.2, hepatic profile not marked appearing, chest x-ray with discoid atelectasis or scarring at the lung bases, patchy pneumonia in the left lower lung blood culture x2 pending per ED, urine culture pending per ED, urinalysis with specific gravity 1.020, protein 30, ketone 5, occult blood negative, nitrite negative, leukocyte Estrace 25 with full panel pending upon requested evaluation of patient, rapid SARS COVID and influenza antigens negative. In the ED patient ministered normal saline bolus as well as Levaquin 750 mg p.o. x1. [facility] Medical History (Updated 02/26/22 @ 04:[address] Ness Bell MD) Ambulates with cane Amputation finger Amputation of toe Anemia of chronic disease Atrial fibrillation Diabetes mellitus, type II Gastric reflux History of steroid therapy HLD (hyperlipidemia) Hypertension Hypertension Insulin dependent diabetes mellitus Wears dentures Wears glasses Wears hearing aid Home Medications aspirin 81 mg tablet,delayed release 81 mg PO DAILY 11/29/12 [History Last Taken 04/22/21] metoprolol tartrate 50 mg tablet 50 mg PO BID 11/29/12 [History Last Taken 04/25/21 08:00] niacin 250 mg tablet,extended release (Slo-Niacin) 500 mg PO DAILY 11/29/12 [History Last Taken 05/18/15 09:00] rosuvastatin 20 mg tablet (Crestor) 20 mg PO QHS 11/29/12 [History Last Taken 05/17/15] famotidine 20 mg tablet 20 mg PO QHS 05/11/15 [History Last Taken 05/17/15] mycophenolate mofetil 500 mg tablet (CellCept) 500 mg PO BID 05/11/15 [History Last Taken 04/25/21 08:00] prednisone 2.5 mg tablet 5 mg PO DAILY 05/11/15 [History Last Taken 04/25/21 08:00] tacrolimus 1 mg capsule, immediate-release (Prograf) 1 mg PO BID 05/11/15 [History Last Taken 05/18/15 09:00] cholecalciferol (vitamin D3) 25 mcg (1,000 unit) tablet (Vitamin D3) 2,000 unit PO DAILY 05/17/15 [History Last Taken 05/18/15] insulin aspart U-100 100 unit/mL (3 mL) subcutaneous pen (Novolog Flexpen U-100 Insulin aspart) See Protocol subcut CONT 02/06/18 [History Last Taken 02/06/18] hydrocodone-acetaminophen 5-325mg 5mg-325mg 1 tab PO Q6H PRN pain 5 days #20 tabs 03/27/21 [Rx Last Taken Unknown] sulfamethoxazole 800 mg-trimethoprim 160 mg tablet (Bactrim DS) 1 tab PO BID 10 days #20 tabs 03/27/21 [Rx Last Taken Unknown] doxycycline hyclate 50 mg capsule 50 mg PO BID 14 days #28 caps 04/25/21 [Rx Last Taken Unknown] Allergy/AdvReac Type Severity Reaction Status Date / Time No Known Allergies Allergy Verified 02/26/22 01:40 Family History (Updated 02/26/22 @ 03:[address] Jamee Vargas MD) Mother Kidney disease Hypertension High cholesterol Diabetes Father Kidney disease Hypertension High cholesterol Diabetes Surgical History (Updated 02/26/22 @ 03:[address] Jamee Vargas MD) Amputation of foot Hx of kidney transplant Hx of surgical amputation of finger Renal transplant recipient Social History (Updated 02/26/22 @ 04:[address] Jamee Vargas MD) household members: spouse, family and children Smoking Status: Former smoker how long ago did patient quit smoking: Quit~ 50 years prior smoked youth until quit 2 ppd. alcohol intake: former details: Drank heavily in youth, stopped ~ 50 years prior. substance use type: does not use what type of physical activity do you participate in: walking ROS ROS Narrative Admission Review of Systems: CONSTITUTIONAL: No weight loss, + fever, weakness or fatigue. HEENT: + Headache, congestion, rhinorrhea. Eyes: No visual loss, blurred vision, double vision or yellow sclerae. Ears, Nose, Throat: No hearing loss, sneezing. SKIN: No rash or itching, lesions, wounds. CARDIOVASCULAR: No chest pain, chest pressure or chest discomfort, palpitations, edema, orthopnea, syncopal events. RESPIRATORY: + shortness of breath, cough without marked sputum, No wheezing, hemoptysis. GASTROINTESTINAL: + anorexia, nausea, vomiting, diarrhea, No abdominal pain, melena, BRBPR. GENITOURINARY: No dysuria, frequency, urgency or retention. NEUROLOGICAL: + headache, No dizziness, syncope, paralysis, ataxia, numbness or tingling in the extremities, focal weakness, change in bowel or bladder control, seizure. MUSCULOSKELETAL: + muscle, back pain, joint pain or stiffness. HEMATOLOGIC: + anemia, bleeding or bruising. LYMPHATICS: No enlarged nodes. No history of splenectomy. PSYCHIATRIC: No history of depression or anxiety. ENDOCRINOLOGIC: No reports of sweating, cold or heat intolerance. No polyuria or polydipsia. ALLERGIES: No history of asthma, hives, eczema or rhinitis. Vital Signs Vital Signs Vital Signs: 02/26/22 01:33 02/26/22 01:39 02/26/22 01:40 Temperature 99.1 F 99.1 F Temperature Source Temporal Temporal Pulse Rate 82 77 Respiratory Rate 26 H 28 H Respiratory Effort Normal Non-Labored Respiratory Pattern Normal Blood Pressure 112/48 L 112/48 L Blood Pressure Mean 69 69 Pulse Ox 93 93 Oxygen Delivery Method Room Air Room Air Oxygen Flow Rate (L/min) 02/26/22 03:32 02/26/22 04:04 02/26/22 04:06 Temperature Temperature Source Pulse Rate 73 74 Respiratory Rate 25 H 22 H Respiratory Effort Respiratory Pattern Blood Pressure 136/62 H 138/64 H Blood Pressure Mean 86 88 Pulse Ox 90 86 95 Oxygen Delivery Method Room Air Room Air Nasal Cannula Oxygen Flow Rate (L/min) 2 02/26/22 03:39 Temperature 99.5 F H Temperature Source Oral Pulse Rate 77 Respiratory Rate 24 H Respiratory Effort Respiratory Pattern Blood Pressure 138/64 H Blood Pressure Mean 88 Pulse Ox 93 Oxygen Delivery Method Nasal Cannula Oxygen Flow Rate (L/min) 2 Weight Weight: 229 lb 11.547 oz Body Mass Index (BMI) 32.9 Physical Exam Narrative Physical Examination: General: Awake, alert, oriented x 3 and cooperative, seated upright in the ED bed, fatigued and ill-appearing. Skin: Normal color, normal turgor, no icterus, no cyanosis. HEENT: AT/NC, EOMI, PERRLA, dry MM, no carotid bruits or JVD noted. Lungs: Diminished, greater bases, left greater than right, mildly increased respiratory rate but no distress, no marked rales, ronchi or wheezing. Heart: Currently regular rate and rhythm; no gallop, rub audible. Abdomen: Soft, obese, insulin pump in place, NTTP, difficult to assess distention given habitus, distant mildly hyperactive bowel sounds, no obvious HSM. Extremities: No cyanosis, no clubbing, mild ankle to distal davey not markedly pitting edema, evidence of previous amputations including TMA. Neurological: Patient awake, alert, oriented as noted, cognitive function intact; pupils equally reactive to light and accommodation, cranial nerves II- XII grossly normal, moving all 4 extremities, no focal deficits, strength moderately global decrease secondary to acute presentation Psychiatric: Affect appears fatigued, ill-appearing no acute evidence of depressive or anxiety feelings. Results Lab / Micro Data Result Diagrams: 02/26/22 01:51 02/26/22 01:51 Labs: Laboratory Results - last 24 hr 02/26/22 01:51: WBC 8.9, RBC 4.29 L, Hgb 11.9 L, Hct 37.9 L, MCV 88.3, MCH 27.7, MCHC 31.4 L, RDW Std Deviation 42.5, RDW Coeff of [place] 13.2, Plt Count 159, MPV 10.6, Immature Gran % (Auto) 0.300, Neut % (Auto) 85.9 H, Lymph % (Auto) 8.5 L, [place] % (Auto) 5.2, Eos % (Auto) 0.0, Baso % (Auto) 0.1, Absolute Neuts (auto) 7.6, Absolute Lymphs (auto) 0.75 L, Nucleated RBC % 0 02/26/22 01:51: Sodium 138, Potassium 3.5, Chloride 105, Carbon Dioxide 27.0, Anion Gap 6, BUN 31 H, Creatinine 1.17, Estim Creat Clear Calc 61.53, Est GFR (MDRD) Af Amer 79, Est GFR (MDRD) Non-Af 66, BUN/Creatinine Ratio 26.5 H, Glucose 98, Calcium 8.4 L, Total Bilirubin 0.60, Direct Bilirubin 0.24, AST 17, ALT 14 L, Alkaline Phosphatase 41 L, Total Protein 5.5 L, Albumin 2.8 L, Globulin 2.7 02/26/22 01:51: Lactic Acid 1.2 02/26/22 03:35: Urine Color Yellow, Urine Clarity Clear, Urine pH 5.0, Ur Specific [place] 1.020, Urine Protein 30 H, Urine Glucose (UA) Normal, Urine Ketones 5 H, Urine Occult Blood Negative, Urine Nitrite Negative, Urine Bilirubin 1 H, Urine Urobilinogen 1 H, Ur Leukocyte Esterase 25 H, Urine RBC 0-5 SEEN, Urine WBC 5-10 SEEN, Ur Squamous Epith Cells 0 SEEN, Urine Bacteria 1+, Hyaline Casts 0-5 SEEN, Urine Mucus 0 SEEN Micro: Microbiology 02/26/22 01:51 Nasal Secretion SARS-CoV-2 & FLU Antigen (Rapid) - Final Radiology Impression Chest X-Ray 02/26/22 01:39 IMPRESSION: Discoid atelectasis or scarring at both lung bases. Patchy pneumonia in the left lower lung. Electronically Signed: Freddy Teague MD at 3:08 EST , Assessment & Plan Assessment/Plan (1) Pneumonia: (2) Hypoxia: PLAN: Plan The patient is a 71 y/o M w/ PMHx: Former tobacco use, Obesity, GERD, HTN, HLD, IDDM w/ Insulin pump, Chronic neuropathy, PAF, Chronic anemia/AOCD, Hx prior ESRD s/p Renal Transplant now CKD stage II who presents to the [facility] ED on 01/31 10/21 with history of significant fatigue, malaise, myalgias over the last 4 to 5 days with subjective fever, cough, nausea and emesis as well as some loose stools in addition to mild headache not improving prompting eventual ED evaluation. #1. Acute Hypoxia secondary to Acute LLL Pneumonia with immunocompromise status: Will admit to medical surgical floor, maintain on oxygen with wean as tolerated to room air, PRN albuterol, maintained on IV Rocephin and Azithromycin pending further work-up as certainly could be viral etiology given myriad of symptoms; however, given transplant status also low threshold to broaden regimen, HOB, IS parameters w/ pending sputum culture, full respiratory viral panel and urine antigens. Bld cx x 2 obtained in the ED. #2. IDDM w/ chronic neuropathy, history several amputations including pedal and multiple digits hand: Following outpatient with endocrinology, most recent visit noted 11/21/2021, hemoglobin A1c noted at that visit 7.6%, ongoing usage [employer] 630 with guardian link CGM, per that visit it was noted that he does not enter his carbs but manually boluses depending on the size of the meal and reportedly frequently forgets to bolus prior to eating, will continue home insulin pump with insulin sliding scale with Accu-Cheks per his home machine, continue ADA diet. #3. Chronic anemia/AOCD: Admission hemoglobin 11.9, MCV 88.3, baseline he moglobin appears primarily more recently 01-11, stable, continue to trend. #4. Chronic Kidney Disease Stage II with prior ESRD s/p Renal Transplant status: Admission BUN/Cr 31/1.17, baseline renal function 0.9-1.1, repeat BMP in AM, will continue patient prednisone and Prograf however given acute presentation with infection we will temporarily hold CellCept, continue prophylactic bactrim, resume once appropriate #5. Hypertension: Continue home regimen including metoprolol, PRN hydralazine. #6. Hyperlipidemia: We will continue patient on statin therapy. #7. PAF: Noted in history, will continue patient home metoprolol regimen, not chronically anticoagulated. #8. Former tobacco use: Encourage continued tobacco cessation. #9. Obesity: Weight loss and lifestyle changes encouraged. #10. GERD: We will maintain on home famotidine regimen. #11. DVT prophylaxis: SCDs, Lovenox. #12. CODE status: Patient HARESH is his spouse who is present and living will is currently in place. Discussed CODE status at length including difference between FULL code, DNR-CCA and DNR-CC status. Following discussions about the differences in these status, requested Full Code status although they both do report that they do need to discuss this further given his significant comorbidities and severe diabetes status. Advanced Care Planning Face to Face Time: 16 minutes. Charges/Coding Visit Charges Inpatient E&M: 32765 Init Hosp L3 Procedures Hospitalists Procedures: 00990 Advncd Care Plan 30 Min
[2022-02-26] MEDS: Acetaminophen 325 MG Tablet 650 MG PO (06:17)
[2022-02-26] MEDS: 0.9% Normal Saline 1,000 ML 125 ML IV ×2 (06:18→16:19)
[2022-02-26 08:55] LABS: Bedside Glucose 100 mg/dL (74-106)
[2022-02-26] MEDS: Insulin Basal Pump SC (09:58)
[2022-02-26] MEDS: Tacrolimus Anhydrous 1 MG Capsule PO ×2 (09:59→22:06)
[2022-02-26] MEDS: Aspirin E.C. 81 MG Tablet PO (09:59)
[2022-02-26] MEDS: predniSONE 5 MG Tablet PO (09:59)
[2022-02-26] MEDS: Metoprolol Tartrate 50 MG Tablet PO ×2 (09:59→22:07)
[2022-02-26] MEDS: Smz/Tmp Ds Tablet 1 TABLET PO (10:00)
[2022-02-26] MEDS: Azithromycin 250 MG Tablet 500 MG PO (10:00)
[2022-02-26] MEDS: Enoxaparin 40 MG/0.4 ML Syringe SC (10:00)
[2022-02-26] MEDS: Ceftriaxone 1 GM/50 ML BAG IV (11:14)
--- NOTE | 2022-02-26 12:25 | CASEMGMT ---
WALTER WILLIAMSON Assessment: Face to Face with pt for initial transition planning/care coordination assessment. WALTER WILLIAMSON introduced self and role at [facility] [place], pt voices understanding and consents to assessment. Pt in bed with at bedside. Verbal permission given to ask questions in presence of . Pt is A/O and answers all questions appropriately at this time. Care providers, pharmacy, and demographics verified/updated. Admitting Dx: Hypoxia, Pneumonia. PCP: Mikayla Lopez. Specialists: Chevy, Endocrinology; Sheng, Podiatry. 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 Preferred Pharmacy: [facility]. Insurance: [employer]. Prescription Benefit: Yes. LW/HPOA: Pt thinks a LW/HPOA exists but isn't sure. Pt believes is HPOA. Pt is aware SW can assist and the information be placed on file. SW advised. LNOK: Sonia Zuleta, . Living Arrangements: Pt lives with in a one story home with no steps to enter. Pt is I in ADLs. Transportation: Pt utilizes taxi services and has a golf cart. DME/HHC/SNF: Pt has a cane and grab bars. Pt reports having [facility] [place] [facility] in the past. Pt denies any SNF stays in the past. Pt has DM. Pt has an insulin pump and necessary supplies. Pt denies any oxygen at home. Pt states no concerns with going home at time of dc. Pt states no further concerns/needs. CM to follow. Advised pt to ask CM if any further question/concerns/needs arise, voices understanding. Pt Goal: Home. No needs. Plan: TBD. ? ? ?
--- NOTE | 2022-02-26 17:53 | PCM.HOSP.N ---
Hospitalist Note Patient was seen and examined today, he had been admitted early this morning for left lower lobe pneumonia with hypoxia, patient appears comfortable at this time on nasal cannula oxygen-he is currently requiring 2 L. I will repeat to the patient's chest x-ray in the morning and continue present antibiotic treatment and aerosol treatments
[2022-02-26] MEDS: Famotidine 20 MG Tablet PO (22:07)
[2022-02-26] MEDS: Atorvastatin Calcium 40 MG Tablet PO (22:07)
--- NOTE | 2022-02-26 22:21 | NURSING ---
PER PT INSULIN PUMP REPORTS BLOOD GLUCOSE OF 50. HYPOGLYCEMIC PROTOCOL FOLLOWED.
--- NOTE | 2022-02-26 23:00 | NURSING ---
PER PT, INSULIN PUMP NOW INDICATES GLUCOSE LEVEL OF 144.
--- NOTE | 2022-02-27 04:46 | PCM.HOSP.N ---
Hospitalist Note Respiratory panel with + influenza resulted, will add tamiflu.
[2022-02-27 05:30] VITALS: BP 140/76; PULSE 63; RESP 18; TEMP 36.9; O2SAT 93
--- NOTE | 2022-02-27 05:55 | RAD_ITS ---
STUDY: X-RAY CHEST REASON FOR EXAM: Male, 71 years old. pneumonia TECHNIQUE: PA and lateral views of the chest. COMPARISON: 02/26/2022 FINDINGS: Decrease in alveolar opacity in the lower left lung consistent with improved left lower lobe pneumonia. There is no demonstrated pleural abnormality. Normal size heart. Normal mediastinum and wolf. Normal visualized pulmonary arteries. Normal visualized aortic arch and descending thoracic aorta. Normal visualized thoracic spine. Normal visualized ribs, clavicles, and shoulders. There is no demonstrated abnormality of the visualized soft tissue structures of the upper abdomen. RAD/Chest PA and Lateral IMPRESSION: Improved left lower lobe pneumonia. Electronically Signed: Ray Hong MD at 17:50 EST ,
[2022-02-27 07:15] VITALS: O2SAT 91; O2SAT 95
[2022-02-27 07:56] LABS: Absolute Lymphocyte Count 1.43 X10^3/uL (0.83-4.51); Absolute Neutrophil Count 8.3 X10^3/uL (2.0-7.7); Basophil# 0.02 X10^3/uL; Basophil% 0.2 % (0-1); Eosinophil# 0.03 X10^3/uL; Eosinophils% 0.3 % (0-5); Hematocrit 38.4 % (40-54); Hemoglobin 12.4 g/dL (13.0-16.5); Lymphocyte # 1.43 X10^3/ul (0.83-4.51); Lymphocyte % 13.5 % (19-41); Mean Corp Hgb Conc 32.3 g/dL (32-36); Mean Corpuscular Hgb 28.6 pg (27.0-32.0); Mean Corpuscular Volume 88.5 fL (80-94); Mean Platelet Vol. 10.3 fl (6.2-12.0); Monocyte% 6.6 % (0-10); NRBC Flagged by Analyzer 0 % (0-5); Neutrophil # 8.32 X10^3/uL (2.7-7.7); Neutrophil % 78.7 % (47-70); Platelet Count 165 K/mm3 (150-450); RBC Distribution Width CV 13.3 % (11.6-14.6); RBC Distribution Width SD 43.4 fl (35.1-43.9); Red Blood Count 4.34 M/mm3 (4.6-6.2); White Blood Count 10.6 K/mm3 (4.4-11.0)
[2022-02-27 08:13] LABS: ALB/GLOB Ratio 0.8 RATIO (0.9-2.4); AST(SGOT) 12 U/L (15-37); Alanine Aminotransfer ALT/SGPT 12 U/L (16-61); Albumin, Serum 2.5 g/dL (3.2-5.0); Alkaline Phosphatase 43 U/L (45-117); Anion Gap 0 (5-15); BUN 21 mg/dL (7-18); BUN/Creat Ratio 19.1 RATIO (10-20); Calcium,Total 8.5 mg/dL (8.5-10.1); Chloride 107 mmol/L (98-107); EST Glomerular Filtration Rate 71 mL/min (>60); Est Glom Filt Rate - Afr Amer 85 mL/min (>60); Estimated Creatinine Clearance 65.44 ml/min; Globulin 3.1 g/dL (2.2-4.2); Glucose 132 mg/dL (74-106); Potassium 4.7 mmol/L (3.5-5.1); Protein, Total 5.6 g/dL (6.4-8.2); Sodium Level 138 mmol/L (136-145)
--- NOTE | 2022-02-27 08:24 | NURSING ---
Sean Michel, ED ambulated pt on room air pox readings entered on intervention
[2022-02-27 08:44] VITALS: BP 158/68; PULSE 75; RESP 18; TEMP 36.8; O2SAT 92
--- NOTE | 2022-02-27 08:48 | NURSING ---
Pt checked blood sugar. It is 165 at this time.
[2022-02-27 08:49] VITALS: O2SAT 91
[2022-02-27 08:59] VITALS: BP 158/68; PULSE 75
[2022-02-27] MEDS: Tacrolimus Anhydrous 1 MG Capsule PO (08:59)
[2022-02-27] MEDS: Enoxaparin 40 MG/0.4 ML Syringe SC (08:59)
[2022-02-27] MEDS: Aspirin E.C. 81 MG Tablet PO (08:59)
[2022-02-27] MEDS: Azithromycin 250 MG Tablet 500 MG PO (08:59)
[2022-02-27] MEDS: Metoprolol Tartrate 50 MG Tablet PO (08:59)
[2022-02-27] MEDS: predniSONE 5 MG Tablet PO (08:59)
[2022-02-27] MEDS: Insulin Basal Pump SC (09:00)
--- NOTE | 2022-02-27 11:49 | DCINST_ITS ---
Discharge Instructions Diet Discharge Diet: - (Resume previous diet) Activity Discharge Activity: Return to Normal Activity Weight Bearing Status: Full weight bearing Follow Up Care Test Results: Test results from this visit will be discussed in further detail at your follow- up appointment, if applicable. Discharge Plan Admission Admit Date/Time: 02/26/22 04:15 Primary Reason for Your Visit: Influenza A pneumonia Attending Provider: Sebastian Sorenson Primary Care Provider: Mikayla Lopez Consulting Providers: Jamee Vargas Discharge Orders/Prescriptions Prescriptions: New azithromycin 250 mg Tablet 500 mg PO Q24 Qty: 2 0RF Rx Instructions: start on 02/28/22 oseltamivir 75 mg Capsule 75 mg PO BID Qty: 10 0RF Continued aspirin 81 MG tablet 81 mg PO DAILY Label Comments: HEART HEALTH niacin [Slo-Niacin] 250 MG tablet extended release 500 mg PO DAILY Label Comments: SUPPLEMENT metoprolol tartrate 50 MG tablet 50 mg PO BID Label Comments: BLOOD PRESSURE rosuvastatin [Crestor] 20 MG tablet 20 mg PO QHS Label Comments: decrease cholesterol mycophenolate mofetil [CellCept] 500 MG tablet 500 mg PO BID Label Comments: ANTI-REJECTION MED prednisone 2.5 MG tablet 5 mg PO DAILY Label Comments: STEROID tacrolimus [Prograf] 1 MG capsule 1 mg PO BID Label Comments: KIDNEYS famotidine 20 MG tablet 20 mg PO QHS Label Comments: GERD cholecalciferol (vitamin D3) [Vitamin D3] 1,000 UNIT tablet 2,000 unit PO DAILY Label Comments: SUPPLEMENT insulin aspart U-100 [Novolog Flexpen U-100 Insulin] 100 UNITS/ML insulin pen See Protocol subcut CONT Protocol: 6. Sliding Scale Insulin Custom Condition: mg/dl range Dose/Route: Number of Units Instruction: using insulin pump Protocol Text: Custom Sliding Scale Rx Instructions: insulin pump sulfamethoxazole-trimethoprim [Bactrim DS] 800-160 mg tablet 1 tab PO MOWEFR Rx Instructions: 1 TAB orally MWF Referrals / Follow Up: Mikayla Lopez MD [Primary Care Provider] - See Referral Note (At scheduled office visit) Disposition Disposition (needs filled in before D/C Order can be placed): Home, Self Care
[2022-02-27] MEDS: Oseltamivir Phosphate 75 MG Capsule PO (12:13)
[2022-02-27] MEDS: Ceftriaxone 1 GM/50 ML BAG IV (12:32)
[2022-02-27 12:42] VITALS: BP 139/75; PULSE 69; RESP 18; TEMP 36.8; O2SAT 94
--- NOTE | 2022-02-27 14:04 | CASEMGMT ---
WALTER CM in to pt room, pt has left. Pt did not qualify for home oxygen.
--- NOTE | 2022-04-12 15:22 | DS.PCM_ITS ---
Providers Date of Admission: 02/26/22 Date of Discharge: 02/27/22 Primary Care Physician: Dr. Mikayla Lopez MD Reason For Visit: HYPOXIA, PNEUMONIA Diagnosis Discharge Diagnosis (1) Pneumonia: Status: Resolved Code(s): J18.9 - Pneumonia, unspecified organism (2) Hypoxia: Status: Resolved Code(s): R09.02 - Hypoxemia Plan 1. 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 Bacterial community-acquired pneumonia was ruled out Medications at Discharge Home Medications aspirin 81 mg tablet,delayed release 81 mg PO DAILY heart heatlh 11/29/12 metoprolol tartrate 50 mg tablet 50 mg PO BID bp 11/29/12 niacin 250 mg tablet,extended release (Slo-Niacin) 500 mg PO DAILY b vitamin 11/29/12 rosuvastatin 20 mg tablet (Crestor) 20 mg PO QHS hld 11/29/12 famotidine 20 mg tablet 20 mg PO QHS GERD 05/11/15 mycophenolate mofetil 500 mg tablet (CellCept) 500 mg PO BID transplant kidney 05/11/15 prednisone 2.5 mg tablet 5 mg PO DAILY steriod 05/11/15 tacrolimus 1 mg capsule, immediate-release (Prograf) 1 mg PO BID anit rejection 05/11/15 cholecalciferol (vitamin D3) 25 mcg (1,000 unit) tablet (Vitamin D3) 2,000 unit PO DAILY vitamin 05/17/15 insulin aspart U-100 100 unit/mL (3 mL) subcutaneous pen (Novolog FlexPen U-100 Insulin aspart) See Protocol subcut CONT DM 02/06/18 sulfamethoxazole 800 mg-trimethoprim 160 mg tablet (Bactrim DS) 1 tab PO MOWEFR antireection 02/26/22 oseltamivir 75 mg capsule 75 mg PO BID #10 caps 02/27/22 amlodipine 2.5 mg tablet 2.5 mg PO DAILY 04/03/22 Hospital Course Operations None Procedures None Summary of Care Provided Minutes Spent on Discharge: 31 Hospital Course: This 71-year-old white male was seen in the emergency room at [facility] with complaints of body aches and malaise x4 to 5 days. Patient also complained of a cough that was nonproductive, he also complained of a headache. Work-up in the emergency room included labs which showed a normal white blood cell count, hemoglobin was 11.9, chemistry profile was unremarkable. Patient's chest x-ray showed a left lower lobe infiltrate and scarring at both lung bases. Patient's urinalysis showed +1 bacteria and 5-10 WBCs and 0-5 RBCs. Patient was admitted for community-acquired pneumonia, he required low-flow nasal cannula oxygen to maintain his pulse ox above 90%, the patient's lab subsequently resulted positive for influenza A and this examiner felt that the patient's pneumonia was a result of the influenza A. Patient improved during his hospitalization he was weaned off oxygen. On 02/27/2022, patient was seen and examined: On examination he appeared in good health and spirits. Vital signs as documented. Skin warm and dry and without overt rashes. Neck without JVD, neck was supple, trachea midline, thyroid was n ormal. Lungs clear bilaterally, normal air movement was noted. Heart exam notable for regular rhythm, normal sounds and absence of murmurs, rubs or gallops. Abdomen unremarkable and without evidence of organomegaly, masses, or abdominal aortic enlargement. Bowel sounds are present, abdomen is not d istended. Extremities nonedematous, no cyanosis was noted, no clubbing was noted. Neuro: Cranial nerves II through XII are grossly intact, no focal motor deficits were noted, sensation to light touch and pinprick intact, motor exam 5/5 throughout. Psych: Patient is alert and oriented x3, he does not appear anxious or depressed, he does not appear agitated. On 02/27/2022, patient was seen and examined and felt to be in stable condition for discharge home. Weight / BMI Weight Weight: 102.013 kg Body Mass Index (BMI) 31.6 ABG / Lab / Microbiology Data Result Diagrams: 02/27/22 07:15 02/27/22 07:15 Microbiology: Microbiology 02/26/22 04:10 Blood Culture (Wb) - Right Hand Blood Culture - Final No growth in 5 days. 02/26/22 01:51 Blood Culture (Wb) - Anticubital Right Blood Culture - Final No growth in 5 days. 02/26/22 03:35 Urine, Clean Catch Urine Culture - Final Mixed Gram Pos & Gram Neg Org 02/26/22 07:20 Mucosa - Nose Respiratory Panel (PCR) - Final Influenza A (Subtype H3) 02/26/22 03:35 Urine, Clean Catch Legionella Antigen - Final 02/26/22 03:35 Urine, Clean Catch Streptococcus pneumoniae Antigen (M - Final 02/26/22 01:51 Nasal Secretion SARS-CoV-2 & FLU Antigen (Rapid) - Final D/C Instructions Discharge Diet: - (Resume previous diet) Weight Bearing Status: Full weight bearing Meaningful Use Info Meaningful Use Diagnoses (Choose all that apply): None applicable Discharge Plan Admission Admit Date/Time: 02/26/22 04:15 Primary Reason for Your Visit: Influenza A pneumonia Attending Provider: Sebastian Sorenson Primary Care Provider: Mikayla Lopez Consulting Providers: Jamee Vargas Discharge Orders/Prescriptions Prescriptions: New oseltamivir 75 mg Capsule 75 mg PO BID Qty: 10 0RF Continued aspirin 81 MG tablet 81 mg PO DAILY Label Comments: HEART HEALTH niacin [Slo-Niacin] 250 MG tablet extended release 500 mg PO DAILY Label Comments: SUPPLEMENT metoprolol tartrate 50 MG tablet 50 mg PO BID Label Comments: BLOOD PRESSURE rosuvastatin [Crestor] 20 MG tablet 20 mg PO QHS Label Comments: decrease cholesterol mycophenolate mofetil [CellCept] 500 MG tablet 500 mg PO BID Label Comments: ANTI-REJECTION MED prednisone 2.5 MG tablet 5 mg PO DAILY Label Comments: STEROID tacrolimus [Prograf] 1 MG capsule 1 mg PO BID Label Comments: KIDNEYS famotidine 20 MG tablet 20 mg PO QHS Label Comments: GERD cholecalciferol (vitamin D3) [Vitamin D3] 1,000 UNIT tablet 2,000 unit PO DAILY Label Comments: SUPPLEMENT insulin aspart U-100 [Novolog FlexPen U-100 Insulin] 100 UNITS/ML insulin pen See Protocol subcut CONT Protocol: 6. Sliding Scale Insulin Custom Condition: mg/dl range Dose/Route: Number of Units Instruction: using insulin pump Protocol Text: Custom Sliding Scale Rx Instructions: insulin pump sulfamethoxazole-trimethoprim [Bactrim DS] 800-160 mg tablet 1 tab PO MOWEFR Rx Instructions: 1 TAB orally MWF No Action amlodipine 2.5 mg tablet 2.5 mg PO DAILY Referrals / Follow Up: Mikayla Lopez MD [Primary Care Provider] - See Referral Note (At scheduled office visit) Disposition Disposition (needs filled in before D/C Order can be placed): Home, Self Care Charges/Coding Visit Charges Inpatient E&M: 83928 Disch Hosp >30min
== END 2022-02-27 12:55 | disposition home or self-care (01) | DRG 194 ==
LOC: ED 04:04 → MS3 04:43 → MS2 09:19
PROVIDERS: Admitting Provider Family Medicine; Emergency Provider Emergency Medicine; PCP Internal Medicine; Visit Provider Internal Medicine
DX: J18.9 Pneumonia, unspecified organism (principal); D84.9 Immunodeficiency, unspecified; Z94.0 Kidney transplant status; E10.22 Type 1 diabetes mellitus with diabetic chronic kidney disease; Z79.4 Long term (current) use of insulin; R19.7 Diarrhea, unspecified; N18.2 Chronic kidney disease, stage 2 (mild); I12.9 Hypertensive chronic kidney disease with stage 1 through stage 4 chronic kidney disease, or unspecified chronic kidney disease; E78.5 Hyperlipidemia, unspecified; E66.9 Obesity, unspecified; Z87.891 Personal history of nicotine dependence; R09.02 Hypoxemia; Z68.32 Body mass index [BMI] 32.0-32.9, adult
CPT/HCPCS: 36415; 71045; 71046; 80048; 80053; 80076; 81001; 82962; 83605; 85025; 87040; 87086; 87088; 87428; 87449; 87633; 93005; 97162; 99285; J7030

== ENCOUNTER → 2022-04-07 | Outpatient (CLI) | payer OTHER, SELFPAY ==
[2022-04-07 12:43] LABS: Erythrocyte Sedimentation Rate 1 mm/hr (0-20)
[2022-04-07 12:49] LABS: Absolute Lymphocyte Count 1.44 X10^3/uL (0.83-4.51); Absolute Neutrophil Count 9.5 X10^3/uL (2.0-7.7); Basophil# 0.11 X10^3/uL; Basophil% 0.9 % (0-1); Eosinophil# 0.04 X10^3/uL; Eosinophils% 0.3 % (0-5); Hematocrit 46.5 % (40-54); Hemoglobin 14.5 g/dL (13.0-16.5); Lymphocyte # 1.44 X10^3/ul (0.83-4.51); Lymphocyte % 12.1 % (19-41); Mean Corp Hgb Conc 31.2 g/dL (32-36); Mean Corpuscular Volume 89.9 fL (80-94); Mean Platelet Vol. 10.7 fl (6.2-12.0); Monocyte# 0.71 X10^3/uL; NRBC Flagged by Analyzer 0 % (0-5); Neutrophil # 9.46 X10^3/uL (2.7-7.7); Neutrophil % 79.8 % (47-70); Platelet Count 204 K/mm3 (150-450); RBC Distribution Width CV 13.4 % (11.6-14.6); RBC Distribution Width SD 44.5 fl (35.1-43.9); Red Blood Count 5.17 M/mm3 (4.6-6.2); White Blood Count 11.9 K/mm3 (4.4-11.0)
[2022-04-07 12:59] LABS: Anion Gap 5 (5-15); BUN 26 mg/dL (7-18); BUN/Creat Ratio 25.5 RATIO (10-20); CRP < 2.90 mg/L (0.0-3.0); Calcium,Total 9.6 mg/dL (8.5-10.1); Chloride 104 mmol/L (98-107); Creatinine, Serum 1.02 mg/dL (0.70-1.30); EST Glomerular Filtration Rate 77 mL/min (>60); Est Glom Filt Rate - Afr Amer 93 mL/min (>60); Glucose 119 mg/dL (74-106); Potassium 4.3 mmol/L (3.5-5.1); Sodium Level 139 mmol/L (136-145)
== END | disposition home or self-care (01) ==
LOC: LAB 11:25
PROVIDERS: PCP Internal Medicine; Visit Provider Podiatrist
DX: L97.522 Non-pressure chronic ulcer of other part of left foot with fat layer exposed (principal)
CPT/HCPCS: 36415; 80048; 85025; 85652; 86140; 87070; 87205

== ENCOUNTER → 2022-04-15 | Outpatient (CLI) | payer SELFPAY, OTHER ==
--- NOTE | 2022-04-15 08:35 | ART_ITS ---
Reason For Study: PVD Procedure A bilateral lower extremity continuous wave Doppler with analog waveform analysis,segmental pressures,and ankle brachial indexes without exercise. Did not walk patient due to noncompressible vessels and unsteady on feet due to neuropathy. Left Segmental Pressures Left posterior tibial artery = 215mmHg. Left dorsalis pedis artery = >254mmHg. The left dorsalis pedis waveforms are biphasic. The left posterior tibial artery waveforms are biphasic. Right Segmental Pressures Right brachial= 168mmHg. Right posterior tibial artery = >254mmHg. Right dorsalis pedis artery = >254mmHg. The right dorsalis pedis waveforms are triphasic. The right posterior tibial artery waveforms are triphasic. Indices The right ankle brachial index by the dorsalis pedis is NC. The right ankle brachial index by the posterior tibial artery is NC. The left ankle brachial index by the dorsalis pedis is NC. The left ankle brachial index by the posterior tibial artery is 1.28. VL/Lower Ext Art Exam w/ Exercise Interpretation Summary Triphasic Doppler waveforms are noted at ankle level on the right. Biphasic Dop pler waveforms are noted at ankle level on the left. Pulse-volume recordings appear satisfactory a t low thigh, calf, and ankle level bilaterally. The resting right ankle-brachial index could not b e determined due to the non-compressibility of the vasculature at ankle level on the right. The res ting left ankle- brachial index is normal. There is evidence of arterial calcification at ankle level on the right. There is no evidence of significant arterial occlusive disease in the lower extremities bilaterally. Ordering Physician: Ja Esteban Referring Physician: Mikayla Lopez M.D. Performed By: Theresa Altman RVT
== END | disposition home or self-care (01) ==
PROVIDERS: PCP Internal Medicine; Referring Provider Podiatrist; Visit Provider Podiatrist
DX: I73.9 Peripheral vascular disease, unspecified (principal)
CPT/HCPCS: 93924

== ENCOUNTER 2022-05-21 10:13 | Inpatient (IN) | payer OTHER, SELFPAY ==
[2022-05-21] VITALS (12 sets, daily range): BP systolic 103–148; BP diastolic 52–77; PULSE 72–143; RESP 16–20; TEMP 36.3–37.7; O2SAT 89–96; BMI 30.3; BMI 30.2
[2022-05-21] MEDS: Glucagon 1 MG/ML Syringe IV (11:31)
[2022-05-21] MEDS: Ondansetron 4 MG/2 ML Vial IV (11:31)
[2022-05-21 11:35] LABS: Absolute Lymphocyte Count 1.42 X10^3/uL (0.83-4.51); Absolute Neutrophil Count 9.7 X10^3/uL (2.0-7.7); Basophil# 0.07 X10^3/uL; Basophil% 0.6 % (0-1); Eosinophil# 0.05 X10^3/uL; Eosinophils% 0.4 % (0-5); Hematocrit 41.2 % (40-54); Hemoglobin 13.1 g/dL (13.0-16.5); Lymphocyte # 1.42 X10^3/ul (0.83-4.51); Lymphocyte % 11.5 % (19-41); Mean Corp Hgb Conc 31.8 g/dL (32-36); Mean Corpuscular Hgb 27.9 pg (27.0-32.0); Mean Corpuscular Volume 87.7 fL (80-94); Mean Platelet Vol. 10.9 fl (6.2-12.0); Monocyte# 0.97 X10^3/uL; Monocyte% 7.9 % (0-10); NRBC Flagged by Analyzer 0 % (0-5); Neutrophil # 9.71 X10^3/uL (2.7-7.7); Neutrophil % 78.6 % (47-70); Platelet Count 203 K/mm3 (150-450); RBC Distribution Width CV 13.1 % (11.6-14.6); RBC Distribution Width SD 41.9 fl (35.1-43.9); White Blood Count 12.3 K/mm3 (4.4-11.0)
--- NOTE | 2022-05-21 11:39 | RAD_ITS ---
STUDY: X-RAY CHEST REASON FOR EXAM: Male, 71 years old. Obstruction. TECHNIQUE: Single frontal view of the chest. COMPARISON: February 27, 2022. FINDINGS: The lungs are clear and expanded. There is no demonstrated pleural abnormality. Stable cardiomegaly. Normal mediastinum and wolf. Normal visualized pulmonary arteries. Normal visualized aortic arch and descending thoracic aorta. Normal visualized thoracic spine. Normal visualized ribs, clavicles, and shoulders. There is no demonstrated abnormality of the visualized soft tissue structures of the upper abdomen. RAD/Chest 1 View (Portable) IMPRESSION: Stable cardiomegaly with no acute or active cardiopulmonary disease. Electronically Signed: Johnny Avendaño, at 12:03 EDT ,
--- NOTE | 2022-05-21 11:41 | EDS_ITS ---
HPI HPI - GI History of Present Illness Chief Complaint: Weakness Narrative Narrative: 71-year-old male presenting with obstructed esophagus. He states that he had intermittent problems with this for the last few weeks. He states that he went to his primary care physician first, and secondly went to Dr. Kirkpatrick's office. Dr. Briceno requested that he go back to his primary care physician and get an esophagram performed. He stated that if he had the esophagram he would be happy to see him as a patient. Patient states he has been trying to get a hold of his primary care physician over the last 3 weeks but cannot get an esophagram ordered. He states intermittently he has not been able to take his pills at home. [facility] Medical History Ambulates with cane Amputation finger Amputation of toe Anemia of chronic disease Atrial fibrillation Diabetes mellitus, type II Gastric reflux History of steroid therapy HLD (hyperlipidemia) Hypertension Hypertension Insulin dependent diabetes mellitus Wears dentures Wears glasses Wears hearing aid Home Medications aspirin 81 mg tablet,delayed release 81 mg PO DAILY heart heatlh 11/29/12 [History Last Taken 04/22/21] metoprolol tartrate 50 mg tablet 50 mg PO BID bp 11/29/12 [History Last Taken 04/25/21 08:00] niacin 250 mg tablet,extended release (Slo-Niacin) 500 mg PO DAILY b vitamin 11/29/12 [History Last Taken 05/18/15 09:00] rosuvastatin 20 mg tablet (Crestor) 20 mg PO QHS hld 11/29/12 [History Last Taken 05/17/15] famotidine 20 mg tablet 20 mg PO QHS GERD 05/11/15 [History Last Taken 05/17/15] mycophenolate mofetil 500 mg tablet (CellCept) 500 mg PO BID transplant kidney 05/11/15 [History Last Taken 04/25/21 08:00] prednisone 2.5 mg tablet 5 mg PO DAILY steriod 05/11/15 [History Last Taken 04/25/21 08:00] tacrolimus 1 mg capsule, immediate-release (Prograf) 1 mg PO BID anit rejection 05/11/15 [History Last Taken 05/18/15 09:00] cholecalciferol (vitamin D3) 25 mcg (1,000 unit) tablet (Vitamin D3) 2,000 unit PO DAILY vitamin 05/17/15 [History Last Taken 05/18/15] insulin aspart U-100 100 unit/mL (3 mL) subcutaneous pen (Novolog FlexPen U-100 Insulin aspart) See Protocol subcut CONT DM 02/06/18 [History Last Taken 02/06/18] sulfamethoxazole 800 mg-trimethoprim 160 mg tablet (Bactrim DS) 1 tab PO MOWEFR antireection 02/26/22 [History Last Taken Unknown] amlodipine 2.5 mg tablet 2.5 mg PO DAILY 04/03/22 [History Last Taken Unknown] omeprazole 20 mg tablet,delayed release 20 mg PO DAILY 05/21/22 [History Last Taken Unknown] Allergy/AdvReac Type Severity Reaction Status Date / Time No Known Allergies Allergy Verified 05/21/22 10:16 Family History Mother Kidney disease Hypertension High cholesterol Diabetes Father Kidney disease Hypertension High cholesterol Diabetes Surgical History Amputation of foot Hx of kidney transplant Hx of surgical amputation of finger Renal transplant recipient Social History household members: spouse, family and children Smoking Status: Former smoker how long ago did patient quit smoking: Quit~ 50 years prior smoked youth until quit 2 ppd. alcohol intake: former details: Drank heavily in youth, stopped ~ 50 years prior. substance use type: does not use what type of physical activity do you participate in: walking EXAM Physical Exam Const Vital Signs: 05/21/22 10:16 05/21/22 11:36 05/21/22 12:15 Temperature 98 F Temperature Source Temporal Pulse Rate 143 H 78 Respiratory Rate 18 16 Respiratory Effort Normal Non-Labored Respiratory Pattern Normal Blood Pressure 127/73 H 135/71 H Blood Pressure Mean 91 92 Blood Pressure Source Blood Pressure Position Blood Pressure Location Baseline BP Pulse Ox 92 95 Oxygen Delivery Method Room Air Room Air Oxygen Flow Rate (L/min) 05/21/22 12:18 05/21/22 13:02 05/21/22 13:05 Temperature 97.5 F L 97.6 F L Temperature Source Temporal Temporal Pulse Rate 78 72 73 Respiratory Rate 16 18 16 Respiratory Effort Respiratory Pattern Normal Blood Pressure 135/71 H 103/59 L 106/65 Blood Pressure Mean 92 73 78 Blood Pressure Source Monitor Monitor Blood Pressure Position Semi-Fowlers Semi-Fowlers Blood Pressure Location Right Arm Right Arm Baseline BP 127/73 127/73 Pulse Ox 95 89 89 Oxygen Delivery Method Room Air Room Air Nasal Cannula Oxygen Flow Rate (L/min) 4 05/21/22 13:11 05/21/22 13:15 05/21/22 13:20 Temperature 97.3 F L Temperature Source Temporal Pulse Rate 76 76 77 Respiratory Rate 16 20 H 16 Respiratory Effort Respiratory Pattern Blood Pressure 134/73 H 137/76 H 128/74 H Blood Pressure Mean 93 96 92 Blood Pressure Source Monitor Monitor Monitor Blood Pressure Position Semi-Fowlers Semi-Fowlers Semi-Fowlers Blood Pressure Location Right Arm Right Arm Right Arm Baseline BP 127/73 127/73 127/73 Pulse Ox 94 96 94 Oxygen Delivery Method Room Air Nasal Cannula Room Air Oxygen Flow Rate (L/min) 4 MDM MDM MDM Narrative Medical decision making narrative: Patient presenting with esophageal obstruction. IV line was established. He was given glucagon which did not help. Basic lab work is obtained as the patient states he has not been able to eat and drink well. CBC shows a white blood cell count of 12.3. Hemoglobin hematocrit are stable. Platelets are normal. Renal function is within normal limits although patient does have some prerenal azotemia. He was given a liter of normal saline. Coagulation studies are normal. EKG was obtained and shows a normal sinus rhythm with a ventricular rate of 79 bpm without sign of ischemic change or dysrhythmia. Chest x-ray my interpretation shows no acute process. Radiology interpretation agrees discussed with Dr. Wylie who took him to the endoscopy suite for upper endoscopy. Apparently patient had findings consistent with malignancy. He was admitted to the hospital from the endoscopy suite. Impression: 1. foreign body esophagus 2. Esophageal stricture Lab Data Attestation: I reviewed the patient's lab results. Labs: Laboratory Results - last 24 hr 05/21/22 05/21/22 05/21/22 10:48 10:48 10:48 WBC 12.3 H RBC 4.70 Hgb 13.1 Hct 41.2 MCV 87.7 MCH 27.9 MCHC 31.8 L RDW Std Deviation 41.9 RDW Coeff of Ayaka 13.1 Plt Count 203 MPV 10.9 Immature Gran % (Auto) 1.000 H Neut % (Auto) 78.6 H Lymph % (Auto) 11.5 L Bradley % (Auto) 7.9 Eos % (Auto) 0.4 Baso % (Auto) 0.6 Absolute Neuts (auto) 9.7 H Absolute Lymphs (auto) 1.42 Nucleated RBC % 0 PT INR Sodium 143 Potassium 4.2 Chloride 108 H Carbon Dioxide 30.0 Anion Gap 5 BUN 27 H Creatinine 1.14 Estim Creat Clear Calc 65.14 Est GFR (MDRD) Af Amer 82 Est GFR (MDRD) Non-Af 68 BUN/Creatinine Ratio 23.7 H Glucose 128 H Calcium 9.5 Total Bilirubin 0.70 AST 14 L ALT 12 L Alkaline Phosphatase 60 C-React Prot Ext Range 29.60 H Total Protein 6.5 Albumin 3.1 L Globulin 3.4 Albumin/Globulin Ratio 0.9 05/21/22 11:46 WBC RBC Hgb Hct MCV MCH MCHC RDW Std Deviation RDW Coeff of Ayaka Plt Count MPV Immature Gran % (Auto) Neut % (Auto) Lymph % (Auto) Bradley % (Auto) Eos % (Auto) Baso % (Auto) Absolute Neuts (auto) Absolute Lymphs (auto) Nucleated RBC % PT 14.3 INR 1.1 Sodium Potassium Chloride Carbon Dioxide Anion Gap BUN Creatinine Estim Creat Clear Calc Est GFR (MDRD) Af Amer Est GFR (MDRD) Non-Af BUN/Creatinine Ratio Glucose Calcium Total Bilirubin AST ALT Alkaline Phosphatase C-React Prot Ext Range Total Protein Albumin Globulin Albumin/Globulin Ratio Radiography Diagnostic Testing: Clinical Impression(s) from Imaging Studies Chest X-Ray 05/21/22 11:39 IMPRESSION: Stable cardiomegaly with no acute or active cardiopulmonary disease. Electronically Signed: Johnny Avendaño, at 12:03 EDT , Discharge Plan Disposition Disposition: Acute Care Hospital [facility] Discharge Date/Time: 05/21/22 12:22
--- NOTE | 2022-05-21 11:42 | NURSING ---
ENDO FRIEND ESPHOGEAL OBSTRUCTION
[2022-05-21 11:48] LABS: ALB/GLOB Ratio 0.9 RATIO (0.9-2.4); AST(SGOT) 14 U/L (15-37); Alanine Aminotransfer ALT/SGPT 12 U/L (16-61); Albumin, Serum 3.1 g/dL (3.2-5.0); Alkaline Phosphatase 60 U/L (45-117); Anion Gap 5 (5-15); BUN 27 mg/dL (7-18); BUN/Creat Ratio 23.7 RATIO (10-20); Calcium,Total 9.5 mg/dL (8.5-10.1); Chloride 108 mmol/L (98-107); Creatinine, Serum 1.14 mg/dL (0.70-1.30); EST Glomerular Filtration Rate 68 mL/min (>60); Est Glom Filt Rate - Afr Amer 82 mL/min (>60); Estimated Creatinine Clearance 65.14 ml/min; Globulin 3.4 g/dL (2.2-4.2); Glucose 128 mg/dL (74-106); Potassium 4.2 mmol/L (3.5-5.1); Protein, Total 6.5 g/dL (6.4-8.2); Sodium Level 143 mmol/L (136-145)
[2022-05-21] MEDS: 0.9% Normal Saline 1,000 ML 999 ML IV (11:52)
[2022-05-21 12:03] LABS: International Normalized Ratio 1.1; Prothrombin Time (Protime)PT. 14.3 SECONDS (11.7-14.9)
--- NOTE | 2022-05-21 12:15 | EGD_PTH ---
PATIENT: MHAAD SULLIVAN LOC: MS3 U#:[id number] AGE/SX: 71/M ROOM: [facility] [place] RE05/21/[address]: Dr. Marshall Mcclure MD : 1950 BED: 1 DIS: 05/23/2022 SPEC #: [id number] RECD: 05/21/22 13:36 STATUS: LOS RERamila #: [id number] KINSEY: 05/21/22 12:[address]: Margarito Wylie DEPT: SURGICAL PATHOLOGY RECD BY: Carli Bhat ENTERED: 05/21/22 13:37 SP TYPE: EGD BIOPSY OT DR: Dr. Mikayla Lopez MD Tissues: A - Esophageal mucous membrane B - Esophageal mucous membrane Procedures: Frozen Section (charge) Special Stain Group I Surgery Specimen Level IV GMS Stain (control) HEADER OPERATION: EGD (MAC) and removal foreign body and dilatation PRE-OP DIAGNOSIS: Esophageal dysphagia TISSUE SUBMITTED: A ? Esophageal mass, frozen section, B - Esophageal mass FROZEN SECTION DIAGNOSIS A. Esophageal mass, biopsy: Negative for carcinoma. DAVID:cony 05/21/2022 Case has been reviewed in consultation with Dr. Madrid who concurs with the above diagnosis. IDC:AM MICROSCOPIC DIAGNOSIS A. Esophageal mass, biopsy: Fragments of squamous mucosa with pseudoepitheliomatous hyperplasia, acute inflammation and reactive changes. Negative for definite malignancy. See comment. B. Esophageal mass, biopsy: Fragments of squamous mucosa with pseudoepitheliomatous hyperplasia, acute inflammation and reactive changes. Negative for definite malignancy. See comment. DAVID:cony 05/22/2022 COMMENT A & B. Special stain for fungi is positive for organisms (hyphae) in superficial epithelial layers; matched control is appropriate. Organisms consistent with bacteria are also noted. Case has been reviewed in consultation with Dr. Madrid who concurs with the above diagnosis. IDC:AM MICROSCOPIC DESCRIPTION Slides are reviewed. GROSS DESCRIPTION A - Received fresh for frozen section diagnosis labeled with the patient's name is a specimen designated esophageal mass. The specimen consists of two fragments of cuellar soft tissue measuring in aggregate 0.4 x 0.2 x 0.1 cm. The entire specimen is submitted for frozen section diagnosis in one cassette. B - Received in fixative is one container labeled with the patient's name and designated esophageal mass. The specimen consists of multiple irregular fragments of light cuellar soft tissue that in aggregate measure 1.5 x 0.6 x 0.1 cm. The specimen is totally submitted in one cassette. / SJ:rg 05/21/2022 TC:5 CPT: 43196 x2, 29316, 66063 x2 ADDENDUM ADDENDUM ADDENDUM ADDENDUM ADDENDUM ADDENDUM ADDENDUM ADDENDUM ADDENDUM ADDENDUM ADDENDUM ADDENDUM ADDENDUM ADDENDUM ADDENDUM 06/06/2022 09:05 ADDENDUM 06/06/2022 09:05 ADDENDUM 06/06/2022 09:05 ADDENDUM 06/06/2022 09:05 ADDENDUM 06/06/2022 09:05 This addendum is added to incorporate an outside pathology consultation report. The case was examined at [facility] (#[id number]) and the following diagnosis was rendered. A. Esophageal mass, biopsy: Fragments of esophageal squamous mucosa showing erosion, acute and chronic inflammation, and pseudoepitheliomatous hyperplasia and reactive changes. Negative for dysplasia or malignancy. B. Esophageal mass, biopsy: Fragments of esophageal squamous mucosa showing erosion, acute and chronic inflammation, and pseudoepitheliomatous hyperplasia and reactive changes. Negative for dysplasia or malignancy. Please see complete above mentioned consultation report in EMR
--- NOTE | 2022-05-21 12:25 | EX.PCM.CON.G ---
HPI Consult Data Date of Consult: 05/21/22 HPI Narrative Reason for Consultation: Esophageal dysphagia HPI Narrative: MAHAD SULLIVAN, is a 71 y/o M w/ PMHx: Former tobacco use, Obesity, GERD, HTN, HLD, IDDM w/ Insulin pump, Chronic neuropathy, PAF, Chronic anemia/AOCD, Hx prior ESRD s/p Renal Transplant now CKD stage II who presents with progressive esophageal dysphagia. He states that he had intermittent problems with this for the last few weeks.? He states that he went to his primary care physician first, and secondly went to Dr. Kirkpatrick's office.? Dr. Briceno requested that he go back to his primary care physician and get an esophagram performed.? He stated that if he had the esophagram he would be happy to see him as a patient.? Patient states he has been trying to get a hold of his primary care physician over the last 3 weeks but cannot get an esophagram ordered.? He states intermittently he has not been able to take his pills at home. [facility] Medical History (Updated 05/21/22 @ 12:[address] Pimentel Friend, DO) Ambulates with cane Amputation finger Amputation of toe Anemia of chronic disease Atrial fibrillation Diabetes mellitus, type II Gastric reflux History of steroid therapy HLD (hyperlipidemia) Hypertension Hypertension Insulin dependent diabetes mellitus Wears dentures Wears glasses Wears hearing aid Home Medications aspirin 81 mg tablet,delayed release 81 mg PO DAILY heart heatlh 11/29/12 [History Last Taken 04/22/21] metoprolol tartrate 50 mg tablet 50 mg PO BID bp 11/29/12 [History Last Taken 04/25/21 08:00] niacin 250 mg tablet,extended release (Slo-Niacin) 500 mg PO DAILY b vitamin 11/29/12 [History Last Taken 05/18/15 09:00] rosuvastatin 20 mg tablet (Crestor) 20 mg PO QHS hld 11/29/12 [History Last Taken 05/17/15] famotidine 20 mg tablet 20 mg PO QHS GERD 05/11/15 [History Last Taken 05/17/15] mycophenolate mofetil 500 mg tablet (CellCept) 500 mg PO BID transplant kidney 05/11/15 [History Last Taken 04/25/21 08:00] prednisone 2.5 mg tablet 5 mg PO DAILY steriod 05/11/15 [History Last Taken 04/25/21 08:00] tacrolimus 1 mg capsule, immediate-release (Prograf) 1 mg PO BID anit rejection 05/11/15 [History Last Taken 05/18/15 09:00] cholecalciferol (vitamin D3) 25 mcg (1,000 unit) tablet (Vitamin D3) 2,000 unit PO DAILY vitamin 05/17/15 [History Last Taken 05/18/15] insulin aspart U-100 100 unit/mL (3 mL) subcutaneous pen (Novolog FlexPen U-100 Insulin aspart) See Protocol subcut CONT DM 02/06/18 [History Last Taken 02/06/18] sulfamethoxazole 800 mg-trimethoprim 160 mg tablet (Bactrim DS) 1 tab PO MOWEFR antireection 02/26/22 [History Last Taken Unknown] oseltamivir 75 mg capsule 75 mg PO BID #10 caps 02/27/22 [Rx Last Taken Unknown] amlodipine 2.5 mg tablet 2.5 mg PO DAILY 04/03/22 [History Last Taken Unknown] Allergy/AdvReac Type Severity Reaction Status Date / Time No Known Allergies Allergy Verified 05/21/22 10:16 Family History Mother Kidney disease Hypertension High cholesterol Diabetes Father Kidney disease Hypertension High cholesterol Diabetes Surgical History Amputation of foot Hx of kidney transplant Hx of surgical amputation of finger Renal transplant recipient Social History household members: spouse, family and children Smoking Status: Former smoker how long ago did patient quit smoking: Quit~ 50 years prior smoked youth until quit 2 ppd. alcohol intake: former details: Drank heavily in youth, stopped ~ 50 years prior. substance use type: does not use what type of physical activity do you participate in: walking ROS ROS Narrative Admission Review of Systems: CONSTITUTIONAL: No weight loss, + fever, weakness or fatigue. HEENT: + Headache, congestion, rhinorrhea. Eyes: No visual loss, blurred vision, double vision or yellow sclerae. Ears, Nose, Throat: No hearing loss, sneezing. SKIN: No rash or itching, lesions, wounds. CARDIOVASCULAR: No chest pain, chest pressure or chest discomfort, palpitations, edema, orthopnea, syncopal events. RESPIRATORY: + shortness of breath, cough without marked sputum, No wheezing, hemoptysis. GASTROINTESTINAL: + anorexia, nausea, vomiting, diarrhea, No abdominal pain, melena, BRBPR. GENITOURINARY: No dysuria, frequency, urgency or retention. NEUROLOGICAL: + headache, No dizziness, syncope, paralysis, ataxia, numbness or tingling in the extremities, focal weakness, change in bowel or bladder control, seizure. MUSCULOSKELETAL: + muscle, back pain, joint pain or stiffness. HEMATOLOGIC: + anemia, bleeding or bruising. LYMPHATICS: No enlarged nodes. No history of splenectomy. PSYCHIATRIC: No history of depression or anxiety. ENDOCRINOLOGIC: No reports of sweating, cold or heat intolerance. No polyuria or polydipsia. ALLERGIES: No history of asthma, hives, eczema or rhinitis. Physical Exam Narrative Physical Examination: General: Awake, alert, oriented x 3 and cooperative, seated upright in the ED bed, fatigued and ill-appearing. Skin: Normal color, normal turgor, no icterus, no cyanosis. HEENT: AT/NC, EOMI, PERRLA, dry MM, no carotid bruits or JVD noted. Lungs: Diminished, greater bases, left greater than right, mildly increased respiratory rate but no distress, no marked rales, ronchi or wheezing. Heart: Currently regular rate and rhythm; no gallop, rub audible. Abdomen: Soft, obese, insulin pump in place, NTTP, difficult to assess distention given habitus, distant mildly hyperactive bowel sounds, no obvious HSM. Extremities: No cyanosis, no clubbing, mild ankle to distal davey not markedly pitting edema, evidence of previous amputations including TMA. Neurological: Patient awake, alert, oriented as noted, cognitive function intact; pupils equally reactive to light and accommodation, cranial nerves II-XII grossly normal, moving all 4 extremities, no focal deficits, strength moderately global decrease secondary to acute presentation Psychiatric: Affect appears fatigued, ill-appearing no acute evidence of depressive or anxiety feelings. Lab / Micro Data Result Diagrams: 05/21/22 10:48 05/21/22 10:48 Labs: Laboratory Results - last 24 hr 05/21/22 10:48: WBC 12.3 H, RBC 4.70, Hgb 13.1, Hct 41.2, MCV 87.7, MCH 27.9, MCHC 31.8 L, RDW Std Deviation 41.9, RDW Coeff of Ayaka 13.1, Plt Count 203, MPV 10.9, Immature Gran % (Auto) 1.000 H, Neut % (Auto) 78.6 H, Lymph % (Auto) 11.5 L, [place] % (Auto) 7.9, Eos % (Auto) 0.4, Baso % (Auto) 0.6, Absolute Neuts (auto) 9.7 H, Absolute Lymphs (auto) 1.42, Nucleated RBC % 0 05/21/22 10:48: Sodium 143, Potassium 4.2, Chloride 108 H, Carbon Dioxide 30.0, Anion Gap 5, BUN 27 H, Creatinine 1.14, Estim Creat Clear Calc 65.14, Est GFR (MDRD) Af Amer 82, Est GFR (MDRD) Non-Af 68, BUN/Creatinine Ratio 23.7 H, Glucose 128 H, Calcium 9.5, Total Bilirubin 0.70, AST 14 L, ALT 12 L, Alkaline Phosphatase 60, Total Protein 6.5, Albumin 3.1 L, Globulin 3.4, Albumin/Globulin Ratio 0.9 05/21/22 11:46: PT 14.3, INR 1.1 Radiology Impression Chest X-Ray 05/21/22 11:39 IMPRESSION: Stable cardiomegaly with no acute or active cardiopulmonary disease. Electronically Signed: Johnny Avendaño, at 12:03 EDT , Assessment & Plan Assessment/Plan (1) Esophageal dysphagia: PLAN: He will undergo an upper endoscopy to evaluate his upper GI tract. He was explained alternatives, risk, benefits include not withstanding bleeding, infection, sepsis, perforation, need for emergent surgery . He will have an ASA of 3. Charges/Coding Visit Charges Inpatient E&M: 04561 Init Hosp L2
--- NOTE | 2022-05-21 12:27 | PCM.HP.BLA ---
History and Physical Date of Admission: 05/21/22 nick RAHMAN a 71 y/o M w/ PMHx: Former tobacco use, Obesity, GERD, HTN, HLD, IDDM w/ Insulin pump, Chronic neuropathy, PAF, Chronic anemia/AOCD, Hx prior ESRD s/p Renal Transplant now CKD stage II who presents with progressive esophageal dysphagia. He states that he had intermittent problems with this for the last few weeks.? He states that he went to his primary care physician first, and secondly went to Dr. Kirkpatrick's office.? Dr. Briceno requested that he go back to his primary care physician and get an esophagram performed.? He stated that if he had the esophagram he would be happy to see him as a patient.? Patient states he has been trying to get a hold of his primary care physician over the last 3 weeks but cannot get an esophagram ordered.? He states intermittently he has not been able to take his pills at home. PFSH Medical History?(Updated 05/21/22 @ 12:[address] Pimentel Friend, DO) Ambulates with cane Amputation finger Amputation of toe Anemia of chronic disease Atrial fibrillation Diabetes mellitus, type II Gastric reflux History of steroid therapy HLD (hyperlipidemia) Hypertension Hypertension Insulin dependent diabetes mellitus Wears dentures Wears glasses Wears hearing aid Home Medications aspirin 81 mg tablet,delayed release 81 mg PO DAILY heart heatlh 11/29/12 [History Last Taken 04/22/21] metoprolol tartrate 50 mg tablet 50 mg PO BID bp 11/29/12 [History Last Taken 04/25/21 08:00] niacin 250 mg tablet,extended release (Slo-Niacin) 500 mg PO DAILY b vitamin 11/29/12 [History Last Taken 05/18/15 09:00] rosuvastatin 20 mg tablet (Crestor) 20 mg PO QHS hld 11/29/12 [History Last Taken 05/17/15] famotidine 20 mg tablet 20 mg PO QHS GERD 05/11/15 [History Last Taken 05/17/15] mycophenolate mofetil 500 mg tablet (CellCept) 500 mg PO BID transplant kidney 05/11/15 [History Last Taken 04/25/21 08:00] prednisone 2.5 mg tablet 5 mg PO DAILY steriod 05/11/15 [History Last Taken 04/25/21 08:00] tacrolimus 1 mg capsule, immediate-release (Prograf) 1 mg PO BID anit rejection 05/11/15 [History Last Taken 05/18/15 09:00] cholecalciferol (vitamin D3) 25 mcg (1,000 unit) tablet (Vitamin D3) 2,000 unit PO DAILY vitamin 05/17/15 [History Last Taken 05/18/15] insulin aspart U-100 100 unit/mL (3 mL) subcutaneous pen (Novolog FlexPen U-100 Insulin aspart) See Protocol subcut CONT DM 02/06/18 [History Last Taken 02/06/18] sulfamethoxazole 800 mg-trimethoprim 160 mg tablet (Bactrim DS) 1 tab PO MOWEFR antireection 02/26/22 [History Last Taken Unknown] oseltamivir 75 mg capsule 75 mg PO BID #10 caps 02/27/22 [Rx Last Taken Unknown] amlodipine 2.5 mg tablet 2.5 mg PO DAILY 04/03/22 [History Last Taken Unknown] Allergy/AdvReac Type Severity Reaction Status Date / Time No Known Allergies Allergy ? ? Verified 05/21/22 10:16 Family History? MotherKidney disease Hypertension High cholesterol DiabetesFather Kidney disease Hypertension High cholesterol Diabetes Surgical History? Amputation of foot Hx of kidney transplant Hx of surgical amputation of finger Renal transplant recipient Social History? household members:? spouse, family and children Smoking Status:? Former smoker how long ago did patient quit smoking:? Quit~ 50 years prior smoked youth until quit 2 ppd. alcohol intake:? former details:? Drank heavily in youth, stopped ~ 50 years prior. substance use type:? does not use what type of physical activity do you participate in:? walking ROS ROS Narrative Admission Review of Systems: CONSTITUTIONAL: No weight loss, + fever, weakness or fatigue. HEENT: + Headache, congestion, rhinorrhea. Eyes: No visual loss, blurred vision, double vision or yellow sclerae. Ears, Nose, Throat: No hearing loss, sneezing. SKIN: No rash or itching, lesions, wounds. CARDIOVASCULAR: No chest pain, chest pressure or chest discomfort, palpitations, edema, orthopnea, syncopal events. RESPIRATORY: + shortness of breath, cough without marked sputum, No wheezing, hemoptysis. GASTROINTESTINAL: + anorexia, nausea, vomiting, diarrhea, No abdominal pain, melena, BRBPR. GENITOURINARY: No dysuria, frequency, urgency or retention. NEUROLOGICAL: + headache, No dizziness, syncope, paralysis, ataxia, numbness or tingling in the extremities, focal weakness, change in bowel or bladder control, seizure. MUSCULOSKELETAL: + muscle, back pain, joint pain or stiffness. HEMATOLOGIC: + anemia, bleeding or bruising. LYMPHATICS: No enlarged nodes. No history of splenectomy. PSYCHIATRIC: No history of depression or anxiety. ENDOCRINOLOGIC: No reports of sweating, cold or heat intolerance. No polyuria or polydipsia. ALLERGIES: No history of asthma, hives, eczema or rhinitis. Physical Exam Narrative Physical Examination: General: Awake, alert, oriented x 3 and cooperative, seated upright in the ED bed, fatigued and ill-appearing. Skin: Normal color, normal turgor, no icterus, no cyanosis. HEENT: AT/NC, EOMI, PERRLA, dry MM, no carotid bruits or JVD noted. Lungs: Diminished, greater bases, left greater than right, mildly increased respiratory rate but no distress, no marked rales, ronchi or wheezing. Heart: Currently regular rate and rhythm; no gallop, rub audible. Abdomen: Soft, obese, insulin pump in place, NTTP, difficult to assess distention given habitus, distant mildly hyperactive bowel sounds, no obvious HSM. Extremities: No cyanosis, no clubbing, mild ankle to distal davey not markedly pitting edema, evidence of previous amputations including TMA. Neurological: Patient awake, alert, oriented as noted, cognitive function intact; pupils equally reactive to light and accommodation, cranial nerves II-XII grossly normal, moving all 4 extremities, no focal deficits, strength moderately global decrease secondary to acute presentation Psychiatric: Affect appears fatigued, ill-appearing no acute evidence of depressive or anxiety feelings. Lab / Micro Data Result Diagrams: 05/21/22 10:48? 05/21/22 10:48? Labs: Laboratory Results - last 24 hr 05/21/22 10:48:?WBC 12.3 H, RBC 4.70, Hgb 13.1, Hct 41.2, MCV 87.7, MCH 27.9,?MCHC 31.8 L, RDW Std Deviation 41.9, RDW Coeff of Ayaka 13.1, Plt Count 203, MPV 10.9,?Immature Gran % (Auto) 1.000 H,?Neut % (Auto) 78.6 H,?Lymph % (Auto) 11.5 L, [place] % (Auto) 7.9, Eos % (Auto) 0.4, Baso % (Auto) 0.6,?Absolute Neuts (auto) 9.7 H, Absolute Lymphs (auto) 1.42, Nucleated RBC % 0 05/21/22 10:48:?Sodium 143, Potassium 4.2,?Chloride 108 H, Carbon Dioxide 30.0, Anion Gap 5,?BUN 27 H, Creatinine 1.14, Estim Creat Clear Calc 65.14, Est GFR (MDRD) Af Amer 82, Est GFR (MDRD) Non-Af 68,?BUN/Creatinine Ratio 23.7 H,?Glucose 128 H, Calcium 9.5, Total Bilirubin 0.70,?AST 14 L,?ALT 12 L, Alkaline Phosphatase 60, Total Protein 6.5,?Albumin 3.1 L, Globulin 3.4, Albumin/Globulin Ratio 0.9 05/21/22 11:46:?PT 14.3, INR 1.1 Radiology Impression Chest X-Ray? 05/21/22 11:39 IMPRESSION: Stable cardiomegaly with no acute or active cardiopulmonary disease. ? Electronically Signed: Johnny Avendaño, at 12:03 EDT , ? Assessment & Plan Assessment/Plan (1) Esophageal dysphagia: PLAN:?He will undergo an upper endoscopy to evaluate his upper GI tract.? He was explained alternatives, risk, benefits include not withstanding bleeding, infection, sepsis, perforation, need for emergent surgery .? He will have an ASA of 3.
--- NOTE | 2022-05-21 12:30 | SUR.PREOP ---
pt down to ac from er- taken striaght to endo suite for procedure to waiting room
--- NOTE | 2022-05-21 12:56 | OP.EGD_ITS ---
Patient Name: Lance Zuleta Procedure Date: 05/21/2022 12:26 PM Date of : 1950 Age: 71 Procedure: Upper GI endoscopy Indications: Dysphagia Providers: Margarito Wylie DO Medicines: Monitored Anesthesia Care Patient Profile: This is a 71 year old male. Refer to note in patient chart for documentation of history and physical. Patient has symptoms of acute dysphagia. Complications: No immediate complications. Procedure: Pre-Anesthesia Assessment: - Prior to the procedure, a History and Physical was performed, and patient medications and allergies were reviewed. The risks and benefits of the procedure and the sedation options and risks were discussed with the patient. All questions were answered and informed consent was obtained. Patient identification and proposed procedure were verified by the physician. Mental Status Examination: normal. Prophylactic Antibiotics: The patient does not require prophylactic antibiotics. Prior Anticoagulants: The patient has taken no previous anticoagulant or antiplatelet agents. ASA Grade Assessment: II - A patient with mild systemic disease. After reviewing the risks and benefits, the patient was deemed in satisfactory condition to undergo the procedure. The anesthesia plan was to use monitored anesthesia care (MAC). Immediately prior to administration of medications, the patient was re-assessed for adequacy to receive sedatives. The heart rate, respiratory rate, oxygen saturations, blood pressure, adequacy of pulmonary ventilation, and response to care were monitored throughout the procedure. The physical status of the patient was re-assessed after the procedure. After obtaining informed consent, the endoscope was passed under direct vision. Throughout the procedure, the patient's blood pressure, pulse, and oxygen saturations were monitored continuously. The Endoscope was introduced through the mouth, and advanced to the second part of duodenum. The upper GI endoscopy was accomplished without difficulty. The patient tolerated the procedure well. Scope In: 12:34:56 PM Scope Out: 12:52:22 PM Total Procedure Duration Time 0 hours 17 minutes 26 seconds Findings: Food was found in the upper third of the esophagus. Removal of food was accomplished. Verification of patient identification for the specimen was done. Estimated blood loss was minimal. One malignant-appearing, intrinsic stenosis was found 25 to 27 cm from the incisors. This stenosis was severe (stenosis; an endoscope cannot pass) and measured 4 mm (inner diameter) x 5 cm (in length). The stenosis was not traversed. A TTS dilator was passed through the scope. Dilation with a 10-11-12 mm balloon dilator was performed to 12 mm. The dilation site was examined and showed no change. Estimated blood loss was minimal. Impression: - Food in the upper third of the esophagus. Removal was successful. - Malignant-appearing esophageal stenosis. Dilated. Recommendation: - Transport patient to ER. - Continue present medications. Procedure Code(s): --- Professional --- 43646, Esophagogastroduodenoscopy, flexible, transoral; with removal of foreign body(s) 51033, Esophagogastroduodenoscopy, flexible, transoral; with transendoscopic balloon dilation of esophagus (less than 30 mm diameter) CPT copyright 2017 [employer] [place] [employer]. All rights reserved. The codes documented in this report are preliminary and upon slicing machine operator review may be revised to meet current compliance requirements. Margarito Wylie DO 05/21/2022 12:56:32 PM This report has been signed electronically. Number of Addenda: 0 Note Initiated On: 05/21/2022 12:26 PM
--- NOTE | 2022-05-21 12:57 | OP.CCLET_ITS ---
05/21/2022 Mikayla Lopez [address] [place] [address] Re : Upper GI endoscopy procedure for Lance Zuleta Dear Dr. Lopez This procedure was performed on Saturday, May 21, 2022. My impressions and recommendations are as follows: Impressions : - Food in the upper third of the esophagus. Removal was successful. - Malignant-appearing esophageal stenosis. Dilated. Recommendations : - Transport patient to ER. - Continue present medications. My findings are described in the full procedure note, which is enclosed. If I can be of further assistance, please feel free to contact me at . Sincerely, Margarito Wylie, 05/21/2022 12:56:32 PM This report has been signed electronically.
--- NOTE | 2022-05-21 13:52 | PCM.HP.STD ---
[facility] - General General Date of Admission: 05/21/22 HPI Narrative MAHAD SULLIVAN, is a 71 M who presents to the hospital with difficulty swallowing. This has been going on for about a month and a half but he periodically can take his pills and he went to his PCP who referred him to Dr. Briceno however Dr. Briceno refused to evaluate him until he could have an esophagram and the patient has been trying for the last couple weeks to get in touch with his primary care physician to get an esophagram. He decided today to come to the ER secondary to this continued difficulty with swallowing and food getting stuck and feels like he is choking and constant spitting up as he was already up here being evaluated for his diabetic foot wound on his left lower extremity. He states that he is developed some weakness secondary to not eating or drinking very well for the last couple of weeks. Gastroenterology was consulted from the ER and was taken down for an evaluation and was found to have an esophageal stricture unfortunately they were unable to pass the scope to dilate the stricture they did get some biopsies because there was concern for cancer and preliminary evaluation does not demonstrate malignancy however gastroenterology is requested that they be brought into the hospital for a CT scan and to plan a fluoroscopy in the OR to attempt to guide dilation of the esophagus. [facility] [place] Medical History Ambulates with cane Amputation finger Amputation of toe Anemia of chronic disease Atrial fibrillation Diabetes mellitus, type II Gastric reflux History of steroid therapy HLD (hyperlipidemia) Hypertension Hypertension Insulin dependent diabetes mellitus Wears dentures Wears glasses Wears hearing aid Home Medications aspirin 81 mg tablet,delayed release 81 mg PO DAILY heart heatlh 11/29/12 [History Last Taken 04/22/21] metoprolol tartrate 50 mg tablet 50 mg PO BID bp 11/29/12 [History Last Taken 04/25/21 08:00] niacin 250 mg tablet,extended release (Slo-Niacin) 500 mg PO DAILY b vitamin 11/29/12 [History Last Taken 05/18/15 09:00] rosuvastatin 20 mg tablet (Crestor) 20 mg PO QHS hld 11/29/12 [History Last Taken 05/17/15] famotidine 20 mg tablet 20 mg PO QHS GERD 05/11/15 [History Last Taken 05/17/15] mycophenolate mofetil 500 mg tablet (CellCept) 500 mg PO BID transplant kidney 05/11/15 [History Last Taken 04/25/21 08:00] prednisone 2.5 mg tablet 5 mg PO DAILY steriod 05/11/15 [History Last Taken 04/25/21 08:00] tacrolimus 1 mg capsule, immediate-release (Prograf) 1 mg PO BID anit rejection 05/11/15 [History Last Taken 05/18/15 09:00] cholecalciferol (vitamin D3) 25 mcg (1,000 unit) tablet (Vitamin D3) 2,000 unit PO DAILY vitamin 05/17/15 [History Last Taken 05/18/15] insulin aspart U-100 100 unit/mL (3 mL) subcutaneous pen (Novolog FlexPen U-100 Insulin aspart) See Protocol subcut CONT DM 02/06/18 [History Last Taken 02/06/18] sulfamethoxazole 800 mg-trimethoprim 160 mg tablet (Bactrim DS) 1 tab PO MOWEFR antireection 02/26/22 [History Last Taken Unknown] amlodipine 2.5 mg tablet 2.5 mg PO DAILY 04/03/22 [History Last Taken Unknown] omeprazole 20 mg tablet,delayed release 20 mg PO DAILY 05/21/22 [History Last Taken Unknown] Allergy/AdvReac Type Severity Reaction Status Date / Time No Known Allergies Allergy Verified 05/21/22 10:16 Family History Mother Kidney disease Hypertension High cholesterol Diabetes Father Kidney disease Hypertension High cholesterol Diabetes Surgical History Amputation of foot Hx of kidney transplant Hx of surgical amputation of finger Renal transplant recipient Social History household members: spouse, family and children Smoking Status: Former smoker how long ago did patient quit smoking: Quit~ 50 years prior smoked youth until quit 2 ppd. alcohol intake: former details: Drank heavily in youth, stopped ~ 50 years prior. substance use type: does not use what type of physical activity do you participate in: walking ROS Constitutional Constitutional: Denies chills, fatigue, fever(s) or malaise Eyes Eyes: Denies blurry vision ENT HEENT: Denies headache(s) or nasal discharge Cardiovascular Cardiovascular: Denies chest pain, dyspnea on exertion or syncope Respiratory/Chest Respiratory/Chest: Denies cough, shortness of breath at rest or shortness of breath with exertion Gastrointestinal Gastrointestinal: Reports dysphagia; Denies constipation, diarrhea, nausea or vomiting Genitourinary Genitourinary: Denies dysuria Integumentary Integumentary: Reports wounds Neurologic Neurologic: Denies focal weakness, numbness or tremor(s) Psychiatric Psychiatric: Denies anxiety or depression Vital Signs Vital Signs Vital Signs: 05/21/22 10:16 05/21/22 11:36 05/21/22 12:15 Temperature 98 F Temperature Source Temporal Pulse Rate 143 H 78 Respiratory Rate 18 16 Respiratory Effort Normal Non-Labored Respiratory Pattern Normal Blood Pressure 127/73 H 135/71 H Blood Pressure Mean 91 92 Blood Pressure Source Blood Pressure Position Blood Pressure Location Baseline BP Pulse Ox 92 95 Oxygen Delivery Method Room Air Room Air Oxygen Flow Rate (L/min) 05/21/22 12:18 05/21/22 13:02 05/21/22 13:05 Temperature 97.5 F L 97.6 F L Temperature Source Temporal Temporal Pulse Rate 78 72 73 Respiratory Rate 16 18 16 Respiratory Effort Respiratory Pattern Normal Blood Pressure 135/71 H 103/59 L 106/65 Blood Pressure Mean 92 73 78 Blood Pressure Source Monitor Monitor Blood Pressure Position Semi-Fowlers Semi-Fowlers Blood Pressure Location Right Arm Right Arm Baseline BP 127/73 127/73 Pulse Ox 95 89 89 Oxygen Delivery Method Room Air Room Air Nasal Cannula Oxygen Flow Rate (L/min) 4 05/21/22 13:11 05/21/22 13:15 05/21/22 13:20 Temperature 97.3 F L Temperature Source Temporal Pulse Rate 76 76 77 Respiratory Rate 16 20 H 16 Respiratory Effort Respiratory Pattern Blood Pressure 134/73 H 137/76 H 128/74 H Blood Pressure Mean 93 96 92 Blood Pressure Source Monitor Monitor Monitor Blood Pressure Position Semi-Fowlers Semi-Fowlers Semi-Fowlers Blood Pressure Location Right Arm Right Arm Right Arm Baseline BP 127/73 127/73 127/73 Pulse Ox 94 96 94 Oxygen Delivery Method Room Air Nasal Cannula Room Air Oxygen Flow Rate (L/min) 4 Weight Weight: 217 lb 9.54 oz Body Mass Index (BMI) 30.3 Physical Exam Narrative General: Alert, Oriented x3, Cooperative, No apparent distress HEENT: Atraumatic, PERRLA, EOMI, Normocephalic Oral: Moist Mucosa Neck: Supple, No JVD Lungs: Diminished, Normal air movement, No rhonchi, No wheeze, No rales Cardiovascular: Regular rate, Regular Rhythm, Normal S1, Normal S2, No murmurs Abdomen: Soft, Non Tender, Non-Distended, No Hepato-splenomegaly Extremities: No edema, Capillary Refill Less than 3 Seconds Skin: Left lower extremity wound wrapped and dressed Musculoskeletal: No Tenderness to Palpation of Joints or Extremities Neurological: Cranial nerves II-XII grossly intact, Motor Exam 5/5 strength throughout, Sensory exam intact to light touch and pain though diminished due to diabetes Psych/Mental Status: Normal Affect, Appropriate Results Lab / Micro Data Result Diagrams: 05/21/22 10:48 05/21/22 10:48 Labs: Laboratory Results - last 24 hr 05/21/22 10:48: WBC 12.3 H, RBC 4.70, Hgb 13.1, Hct 41.2, MCV 87.7, MCH 27.9, MCHC 31.8 L, RDW Std Deviation 41.9, RDW Coeff of Ayaka 13.1, Plt Count 203, MPV 10.9, Immature Gran % (Auto) 1.000 H, Neut % (Auto) 78.6 H, Lymph % (Auto) 11.5 L, [place] % (Auto) 7.9, Eos % (Auto) 0.4, Baso % (Auto) 0.6, Absolute Neuts (auto) 9.7 H, Absolute Lymphs (auto) 1.42, Nucleated RBC % 0 05/21/22 10:48: Sodium 143, Potassium 4.2, Chloride 108 H, Carbon Dioxide 30.0, Anion Gap 5, BUN 27 H, Creatinine 1.14, Estim Creat Clear Calc 65.14, Est GFR (MDRD) Af Amer 82, Est GFR (MDRD) Non-Af 68, BUN/Creatinine Ratio 23.7 H, Glucose 128 H, Calcium 9.5, Total Bilirubin 0.70, AST 14 L, ALT 12 L, Alkaline Phosphatase 60, Total Protein 6.5, Albumin 3.1 L, Globulin 3.4, Albumin/Globulin Ratio 0.9 05/21/22 11:46: PT 14.3, INR 1.1 Radiology Impression Chest X-Ray 05/21/22 11:39 IMPRESSION: Stable cardiomegaly with no acute or active cardiopulmonary disease. Electronically Signed: Johnny Avendaño, at 12:03 EDT , Assessment & Plan Assessment/Plan (1) Esophageal dysphagia: (2) Esophageal stricture: PLAN: Plan 1. Dysphagia secondary to esophageal stricture ? It does appear malignant though it is preliminary pathology is negative ? The CT of his abdomen and pelvis was completed there is no radiology read at this time, he does have bilateral cortical thinning of his kidneys with his transplanted his right lower quadrant bilateral renal cysts I do not see any retroperitoneal lymphadenopathy, with a small hiatal hernia ? We will consult gastroenterology ? Plan will be for fluoroscopy in the OR given that the endoscope could not be passed for dilation of the stricture today ? Of note he is a former smoker 2. 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 We will continue with his continuous insulin drip he is able to monitor his blood sugars closely we will assist ? We will place him on a full liquid diet given the stricture 3. Status post renal transplant ? Can resume his antirejection medications, renal function is stable ? We will continue to monitor his renal function 4. HTN/HLD ? Blood pressure is stable ? Can resume his home medications 5. GERD ? Stable ? Can resume famotidine DVT: Heparin 75 minutes was spent on chart review, collaboration, direct patient evaluation and documentation. Charges/Coding Visit Charges Inpatient E&M: 47407 Init Hosp L3
--- NOTE | 2022-05-21 14:51 | CT_ITS ---
STUDY: CT ABDOMEN AND PELVIS WITH CONTRAST REASON FOR EXAM: Male, 71 years old. Esophageal stricture, cancer work-up -- IV and PO contrast RADIATION DOSAGE (If Supplied By Facility): CTDIvol = ( 14.26 ) mGy, DLP = ( 1136.06 ) mGycm TECHNIQUE: Transaxial images were obtained from the dome of the diaphragm to the symphysis pubis without oral contrast. IV 100mL Isovue-300 was administered. Sagittal and coronal images were reconstructed. Individualized dose optimization techniques were used for this CT. COMPARISON: None. FINDINGS: Bibasilar mild interstitial infiltrates. Multiple bilateral pulmonary nodules measuring up to 3 x 7 mm on the right. calcific coronary artery disease. Normal liver. Normal gallbladder and extrahepatic biliary system. Normal spleen. Normal pancreas. 2.8 cm heterogeneous right adrenal mass. Left adrenal normal. Bilateral renal atrophy. Bilateral renal cysts measuring up to 5.5 cm on the right. Normal visualized stomach. Normal small intestine. Colonic diverticulosis. Oral contrast noted in the small bowel. The appendix is visualized and appears normal. Calcified plaque along the aorta and its branches. Normal inferior vena cava. Normal retroperitoneum. Normal urinary bladder. Bilateral fat-containing inguinal hernias. Pelvic kidney/transplant on the right. Fat-containing umbilical hernia. Degenerative disc disease and spinal stenosis L4-5. CT/Abdomen/Pelvis WITH Contrast IMPRESSION: Bibasilar infiltrates. Bilateral pulmonary nodules. Recommend follow-up CT chest nonemergently. Right adrenal mass. Recommend follow-up adrenal CT or MRI. Bilateral renal atrophy and right pelvic renal transplant. Electronically Signed: Aaron Dunn MD at 22:50 EDT Reading Location ID and State: [facility] / [place] , Service support ,
--- NOTE | 2022-05-21 15:40 | WOUNDNOTE ---
wound photo: plantar surface of left great toe
[2022-05-21] MEDS: Heparin Injection (Vial) 5,000 UNIT/ML VIAL 5000 UNIT SC (21:03)
[2022-05-21] MEDS: Mycophenolate Mofetil 250 MG Capsule 500 MG PO (21:03)
[2022-05-21] MEDS: Tacrolimus Anhydrous 1 MG Capsule PO (21:03)
--- NOTE | 2022-05-21 21:39 | NURSING ---
pts Blood sugar via own pump is 114 at this time
[2022-05-22] VITALS (15 sets, daily range): BP systolic 110–157; BP diastolic 45–105; PULSE 87–104; RESP 17–25; TEMP 36.7–38.7; O2SAT 86–97; BMI 30.2
--- NOTE | 2022-05-22 02:57 | NURSING ---
pts blood sugar is 109 at this time
[2022-05-22 07:16] LABS: Absolute Lymphocyte Count 1.43 X10^3/uL (0.83-4.51); Absolute Neutrophil Count 8.7 X10^3/uL (2.0-7.7); Basophil# 0.05 X10^3/uL; Basophil% 0.4 % (0-1); Eosinophil# 0.06 X10^3/uL; Eosinophils% 0.5 % (0-5); Hematocrit 42.2 % (40-54); Hemoglobin 13.2 g/dL (13.0-16.5); Lymphocyte # 1.43 X10^3/ul (0.83-4.51); Lymphocyte % 12.8 % (19-41); Mean Corp Hgb Conc 31.3 g/dL (32-36); Mean Corpuscular Hgb 27.6 pg (27.0-32.0); Mean Corpuscular Volume 88.3 fL (80-94); Mean Platelet Vol. 10.2 fl (6.2-12.0); Monocyte# 0.82 X10^3/uL; Monocyte% 7.4 % (0-10); NRBC Flagged by Analyzer 0 % (0-5); Neutrophil # 8.65 X10^3/uL (2.7-7.7); Neutrophil % 77.8 % (47-70); Platelet Count 224 K/mm3 (150-450); RBC Distribution Width SD 42.3 fl (35.1-43.9); Red Blood Count 4.78 M/mm3 (4.6-6.2); White Blood Count 11.1 K/mm3 (4.4-11.0)
[2022-05-22 07:38] LABS: Anion Gap 9 (5-15); BUN 21 mg/dL (7-18); BUN/Creat Ratio 20.6 RATIO (10-20); Calcium,Total 9.5 mg/dL (8.5-10.1); Chloride 104 mmol/L (98-107); Creatinine, Serum 1.02 mg/dL (0.70-1.30); EST Glomerular Filtration Rate 77 mL/min (>60); Est Glom Filt Rate - Afr Amer 93 mL/min (>60); Glucose 96 mg/dL (74-106); Potassium 4.1 mmol/L (3.5-5.1); Sodium Level 141 mmol/L (136-145)
--- NOTE | 2022-05-22 10:15 | PN.HOSP_ITS ---
Reason for Visit Reason for Visit: Diagnoses Esophageal obstruction (05/21/22) Other dysphagia (05/21/22) Subjective Subjective Follow-up for esophageal dysphagia. Patient has problems swallowing feels like food is stuck in the chest for last 3 to 4 weeks. Denies acute choking sensation or coughing in throat. He regurgitates last food. Objective Data Objective Data Vital Signs: Vital Signs Temp Pulse Resp BP Pulse Ox O2 Del Method O2 Flow Rate 99.5 F H 92 20 H 146/75 H 96 Nasal Cannula 2 05/22/22 08:00 05/22/22 08:00 05/22/22 08:00 05/22/22 08:00 05/22/22 08:00 05/22/22 08:00 05/22/22 08:00 Oxygen Flow Rate (L/min) 2 Oxygen Delivery Method Nasal Cannula Weight: 216 lb 7.903 oz Body Mass Index (BMI) 30.2 Intake & Output: Intake and Output for Last 24 Hours 05/20/22 05/21/22 05/22/22 23:59 23:59 23:59 Intake Total 1000 / 1000 Output Total 250 / 250 Balance 750 / 750 Lab / Micro Data Result Diagrams: 05/22/22 06:15 05/22/22 06:15 Labs: Laboratory Results - last 24 hr 05/21/22 10:48: WBC 12.3 H, RBC 4.70, Hgb 13.1, Hct 41.2, MCV 87.7, MCH 27.9, MCHC 31.8 L, RDW Std Deviation 41.9, RDW Coeff of Ayaka 13.1, Plt Count 203, MPV 10.9, Immature Gran % (Auto) 1.000 H, Neut % (Auto) 78.6 H, Lymph % (Auto) 11.5 L, [place] % (Auto) 7.9, Eos % (Auto) 0.4, Baso % (Auto) 0.6, Absolute Neuts (auto) 9.7 H, Absolute Lymphs (auto) 1.42, Nucleated RBC % 0 05/21/22 10:48: Sodium 143, Potassium 4.2, Chloride 108 H, Carbon Dioxide 30.0, Anion Gap 5, BUN 27 H, Creatinine 1.14, Estim Creat Clear Calc 65.14, Est GFR (MDRD) Af Amer 82, Est GFR (MDRD) Non-Af 68, BUN/Creatinine Ratio 23.7 H, Glucose 128 H, Calcium 9.5, Total Bilirubin 0.70, AST 14 L, ALT 12 L, Alkaline Phosphatase 60, Total Protein 6.5, Albumin 3.1 L, Globulin 3.4, Albumin/Globulin Ratio 0.9 05/21/22 10:48: C-React Prot Ext Range 29.60 H 05/21/22 11:46: PT 14.3, INR 1.1 05/22/22 06:15: WBC 11.1 H, RBC 4.78, Hgb 13.2, Hct 42.2, MCV 88.3, MCH 27.6, MCHC 31.3 L, RDW Std Deviation 42.3, RDW Coeff of Ayaka 13.0, Plt Count 224, MPV 10.2, Immature Gran % (Auto) 1.100 H, Neut % (Auto) 77.8 H, Lymph % (Auto) 12.8 L, [place] % (Auto) 7.4, Eos % (Auto) 0.5, Baso % (Auto) 0.4, Absolute Neuts (auto) 8.7 H, Absolute Lymphs (auto) 1.43, Nucleated RBC % 0 05/22/22 06:15: Sodium 141, Potassium 4.1, Chloride 104, Carbon Dioxide 28.0, Anion Gap 9, BUN 21 H, Creatinine 1.02, Estim Creat Clear Calc 72.80, Est GFR (MDRD) Af Amer 93, Est GFR (MDRD) Non-Af 77, BUN/Creatinine Ratio 20.6 H, Glucose 96, Calcium 9.5 Radiography Diagnostic Testing: Radiology Impression Chest X-Ray 05/21/22 11:39 IMPRESSION: Stable cardiomegaly with no acute or active cardiopulmonary disease. Abdomen/Pelvis CT 05/21/22 14:51 IMPRESSION: Bibasilar infiltrates. Bilateral pulmonary nodules. Recommend follow-up CT chest nonemergently. Right adrenal mass. Recommend follow-up adrenal CT or MRI. Bilateral renal atrophy and right pelvic renal transplant. Electronically Signed: Aaron Dunn MD at 22:50 EDT Reading Location ID and State: [facility] / [place] , Service support , Physical Exam Narrative Patient was also trying to get esophagogram over the last 3 weeks through PCP. Patient had EGD on 05/21. Dysphagia. Lost weight in the last 1 month. Generalized weakness. Physical exam General: Alert, Oriented x3, Cooperative HEENT: Atraumatic, PERRLA, EOMI, Normocephalic Oral: Oral mucosa moist. No Gingival or Mucosal Lesions/ Ulcerations Neck: Supple, No JVD, Negative Carotid Bruits Lungs: Air entry diminished in bilateral lung bases. No crepitation/rhonchi Cardiovascular: Regular rate, Regular Rhythm, Normal S1, Normal S2, ejection systolic murmur right second ICS, left second ICS and LLSB. Abdomen: Bowel Sounds Present, Soft, Non Tender, Non-Distended : No renal angle tenderness. No suprapubic tenderness. Extremities: No edema, Capillary Refill Less than 3 Seconds Skin: No rashes, No breakdown Musculoskeletal: No Tenderness to Palpation of Joints or Extremities Neurological: Cranial nerves II-XII grossly intact, DTR 2+/4 and Symmetrical, Neuro grossly intact Psych/Mental Status: Flat affect. Assessment & Plan Assessment/Plan (1) Esophageal dysphagia: (2) Esophageal stricture: PLAN: Plan 71-year-old gentleman with history of ESRD status postrenal transplant now CKD stage III presents with progressive esophageal dysphagia morning thoracic region. He had intermittent problem for last few weeks. He states this exacerbated when he took a big antibiotic pill about 3 weeks ago 1. Dysphagia secondary to esophageal stricture: Patient had EGD on 05/21 reporte d full in upper third of esophagus and was successfully removed. Malignant appearing esophageal stenosis dilated.Frozen section was negative for carcinoma. CT of the abdomen and pelvis individually reviewed. Multiple bilateral pulmonary nodules measuring up to 3 x 7 mm on right. Normal liver. 2.8 cm heterogeneous right renal mass. Right renal pelvic transplant. Dr. Wylie is already consulted. Plan for fluoroscopy in the OR today. Patient has history of smoking started in 20s and smoked for more than 50 years. 2. 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 Status post renal transplant: On tacrolimus 1 mg p.o. twice daily, pr ednisone 5 mg daily and mycophenolate 500 mg twice daily. Patient also on Bactrim DS 1 tablet on Thursday. Kidney function on baseline. continue to monitor his renal function 4. HTN/HLD ? Blood pressure is stable ? Can resume his home medications 5. GERD ? Stable ? Can resume famotidine DVT: Heparin Plan of care discussed with patient and his near the bedside. Charges/Coding Visit Charges Inpatient E&M: 95155 Subs Hosp L2
--- NOTE | 2022-05-22 13:00 | CASEMGMT ---
WALTER WILLIAMSON Assessment: Face to Face with pt for initial transition planning/care coordination assessment. WALTER WILLIAMSON introduced self and role at [facility], pt voices understanding and consents to assessment. Pt is A/O x4 and answers all questions appropriately at this time. Pt lying in bed with and dtr at bedside. Pt agreeable to assessment with visitors in room. Care providers, pharmacy, and demographics verified/updated. Admitting Dx: swallowing PCP:Jessica Specialists:silvana Garcia; Eulalia, pod; Lalo,eyes; ENT Preferred Pharmacy: [facility] Insurance: [employer] Prescription Benefit: no LNOK: Sonia Zuleta, Living Arrangements: Pt lives with in a single story home with no steps to enter. Pt reports he is I in ADL's and denies concerns at home. Transportation: Pt hires drivers for transportation. DME/HHC/SNF: Pt has an insulin pump that checks his blood sugars every 5 minutes. Pt states he has plenty of supplies for this. Pt has a cane at home and uses it at times. Pt has had [facility] HHC in the past and denies SNF stays. Pt states no concerns with going home at time of dc. Pt has a wound to his foot that his changes the dressing to daily with iodine, kerlix and mariel wrap. She denies any difficulty with this and will continue to do wound care. Pt states no further concerns/needs. CM to follow. Advised pt to ask CM if any further question/concerns/needs arise, voices understanding. Pt Goal: Home Plan: Home
[2022-05-22] MEDS: Lactated Ringers 1,000 ML 15 ML IV (14:48)
--- NOTE | 2022-05-22 15:30 | EGD_PTH ---
PATIENT: MAHAD SULLIVAN LOC: MS3 U#:[id number] AGE/SX: 71/M ROOM: [facility] RE05/21/[address]: Dr. Marshall Mcclure MD : 1950 BED: 1 DIS: 05/23/2022 SPEC #: [id number] RECD: 05/22/22 17:01 STATUS: LOS RERamila #: [id number] KINSEY: 05/22/22 15:[address]: Margarito Wylie DEPT: SURGICAL PATHOLOGY RECD BY: Carli Bhat ENTERED: 05/23/22 08:17 SP TYPE: EGD BIOPSY OTHR DR: MD Dr. Marshall Kemp MD Dr. Rahsaan Friend, DO Tissues: A - Esophageal mucous membrane B - Esophageal mucous membrane Procedures: Special Stain Group II Surgery Specimen Level IV GMS Stain (control) Comments: @ Ordering doctor for SUIV edited from to @ by ABELINO at 05/23/22 1510 @ Submitting doctor edited from to @ by RGOOD at 05/23/22 1510 HEADER OPERATION: EGD (MAC), balloon dilatation PRE-OP DIAGNOSIS: Esophageal dysphagia, esophageal stricture TISSUE SUBMITTED: A ? Proximal esophageal stricture, B ? Distal esophageal stricture MICROSCOPIC DIAGNOSIS A. Proximal esophageal stricture, biopsy: Fragments of esophageal squamous mucosa showing erosion, acute and chronic inflammation, and pseudoepitheliomatous hyperplasia and reactive changes. Negative for dysplasia or malignancy. See comment. B. Distal esophageal stricture, biopsy: Fragments of esophageal squamous mucosa showing erosion, acute and chronic inflammation, and pseudoepitheliomatous hyperplasia and reactive changes. Negative for dysplasia or malignancy. See comment. SJ:cony 06/06/2022 COMMENT A & B. Special stain for fungi is negative for organisms; matched control is appropriate. The specimen is sent to [facility] for expert opinion, reviewed by Dr. Ken and the above diagnosis is rendered. The complete report is viewable in the patient's EMR. Please make reference to previous specimen ([id number]) esophageal mass, biopsy with diagnosis of ?fragments of squamous mucosa with pseudoepitheliomatous hyperplasia, acute inflammation and reactive changes. Negative for definite malignancy.? Case has been reviewed in consultation with Dr. Madrid who concurs with the above diagnosis. IDC:AM MICROSCOPIC DESCRIPTION Slides are reviewed. GROSS DESCRIPTION A - Received in fixative is one container labeled with the patient's name and designated proximal esophageal stricture. The specimen consists of multiple irregular fragments of light cuellar soft tissue that in aggregate measure 1.5 x 1.0 x 0.1 cm. The specimen is totally submitted in one cassette. B - Received in fixative is one container labeled with the patient's name and designated distal esophageal stricture. The specimen consists of multiple irregular fragments of light cuellar soft tissue that in aggregate measure 1.5 x 0.6 x 0.1 cm. The specimen is totally submitted in one cassette. / SJ:rg 05/23/2022 TC:5 CPT: 93689 x2, 53425 x2 ADDENDUM ADDENDUM ADDENDUM ADDENDUM ADDENDUM ADDENDUM ADDENDUM ADDENDUM ADDENDUM ADDENDUM ADDENDUM ADDENDUM 06/18/2022 10:16 ADDENDUM 06/18/2022 10:16 ADDENDUM 06/18/2022 10:16 ADDENDUM 06/18/2022 10:16 ADDENDUM 06/18/2022 10:16 This addendum is added to incorporate an outside pathology consultation report. The case was examined at [facility] (#[id number]) and the following diagnosis was rendered. A. 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 B. 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 Please see complete above mentioned consultation report in EMR
--- NOTE | 2022-05-22 16:47 | OP.EGD_ITS ---
Patient Name: Lance Zuleta Procedure Date: 05/22/2022 3:50 PM Date of : 1950 Age: 71 Procedure: Upper GI endoscopy Indications: Dysphagia Providers: Margarito Wylie DO Medicines: Monitored Anesthesia Care Patient Profile: This is a 71 year old male. Refer to note in patient chart for documentation of history and physical. Patient has symptoms of acute dysphagia and dysphagia with both liquids and solids. Complications: No immediate complications. Procedure: Pre-Anesthesia Assessment: - Prior to the procedure, a History and Physical was performed, and patient medications and allergies were reviewed. The risks and benefits of the procedure and the sedation options and risks were discussed with the patient. All questions were answered and informed consent was obtained. Patient identification and proposed procedure were verified by the physician in the pre-procedure area. Mental Status Examination: alert and oriented. Airway Examination: normal oropharyngeal airway and neck mobility. Respiratory Examination: clear to auscultation. CV Examination: normal. Prophylactic Antibiotics: The patient does not require prophylactic antibiotics. Prior Anticoagulants: The patient has taken no previous anticoagulant or antiplatelet agents. ASA Grade Assessment: III - A patient with severe systemic disease. After reviewing the risks and benefits, the patient was deemed in satisfactory condition to undergo the procedure. The anesthesia plan was to use monitored anesthesia care (MAC). Immediately prior to administration of medications, the patient was re-assessed for adequacy to receive sedatives. The heart rate, respiratory rate, oxygen saturations, blood pressure, adequacy of pulmonary ventilation, and response to care were monitored throughout the procedure. The physical status of the patient was re-assessed after the procedure. After obtaining informed consent, the endoscope was passed under direct vision. Throughout the procedure, the patient's blood pressure, pulse, and oxygen saturations were monitored continuously. The Endoscope was introduced through the mouth, and advanced to the second part of duodenum. The upper GI endoscopy was accomplished without difficulty. The patient tolerated the procedure well. Scope In: 3:53:39 PM Scope Out: 4:35:54 PM Total Procedure Duration Time 0 hours 42 minutes 15 seconds Findings: One malignant-appearing, intrinsic stenosis was found 22 to 27 cm from the incisors. This stenosis was severe and measured 2 mm (inner diameter) x 5 cm (in length). The stenosis was traversed after dilation. A TTS dilator was passed through the scope. Dilation with a 12-13.5-15 mm balloon dilator was performed to 15 mm under fluoroscopic guidance. The dilation site was examined and showed moderate improvement in luminal narrowing. One malignant-appearing, intrinsic stenosis was found 22 to 27 cm from the incisors. This stenosis was severe (stenosis; an endoscope cannot pass) and. The stenosis was traversed. Biopsies were taken with a cold forceps for histology. Verification of patient identification for the specimen was done. Estimated blood loss was minimal. A large, ulcerating mass with bleeding and stigmata of recent bleeding was found in the upper third of the esophagus, 24 cm from the incisors. The mass was completely obstructing and circumferential. Coagulation for hemostasis using argon plasma at 0.3 liters/minute and 20 yousif was successful. Estimated blood loss was minimal. A medium-sized hiatal hernia was present. No other significant abnormalities were identified in a careful examination of the stomach. The duodenal bulb was normal. Impression: - Malignant-appearing esophageal stenosis. Dilated. - Malignant-appearing esophageal stenosis. Biopsied. 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 Treated with argon plasma coagulation (APC). - Medium-sized hiatal hernia. - Normal duodenal bulb. Recommendation: - [facility]. - Full liquid diet today. - Continue present medications. - Await pathology results. Procedure Code(s): --- Professional --- 99386, 59, Esophagogastroduodenoscopy, flexible, transoral; with control of bleeding, any method 21825, Esophagogastroduodenoscopy, flexible, transoral; with transendoscopic balloon dilation of esophagus (less than 30 mm diameter) 28023, 59,51, Esophagogastroduodenoscopy, flexible, transoral; with biopsy, single or multiple CPT copyright 2017 [employer]. All rights reserved. The codes documented in this report are preliminary and upon plasterer tender review may be revised to meet current compliance requirements. Margarito Wylie DO 05/22/2022 4:46:46 PM This report has been signed electronically. Number of Addenda: 0 Note Initiated On: 05/22/2022 3:50 PM
--- NOTE | 2022-05-22 16:48 | OP.CCLET_ITS ---
05/22/2022 Mikayla Lopez [address] [place] [address] Re : Upper GI endoscopy procedure for Lance Zuleta Dear Dr. Lopez This procedure was performed on April. My impressions and recommendations are as follows: Impressions : - Malignant-appearing esophageal stenosis. Dilated. - Malignant-appearing esophageal stenosis. Biopsied. 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 Treated with argon plasma coagulation (APC). - Medium-sized hiatal hernia. - Normal duodenal bulb. Recommendations : - [facility] to [facility]. - Full liquid diet today. - Continue present medications. - Await pathology results. My findings are described in the full procedure note, which is enclosed. If I can be of further assistance, please feel free to contact me at . Sincerely, Margarito Wylie, 05/22/2022 4:46:46 PM This report has been signed electronically.
--- NOTE | 2022-05-22 18:06 | NURSING ---
Before going down for procedure, Blood sugar was check via pts insulin pump and it was 117. Pt just recently arrived back to floor and he is sleeping. This RN checked blood sugar on hospital glucometer and it was 142 at this time.
[2022-05-22 18:30] LABS: Bedside Glucose 142 mg/dL (74-106)
[2022-05-22] MEDS: Ondansetron 4 MG/2 ML Vial IV (21:16)
--- NOTE | 2022-05-22 22:17 | PCM.HOSP.N ---
Hospitalist Note Patient with increased oxygen requirements, fever. Given recent history suspect possibility of aspiration. Will start zosyn, add tylenol PRN and plan AM CXR. May de-escalate abx therapy as able.
[2022-05-22] MEDS: Acetaminophen 325 MG Tablet 650 MG PO (22:44)
[2022-05-22] MEDS: Metoprolol Tartrate 50 MG Tablet PO (22:46)
[2022-05-22] MEDS: Tacrolimus Anhydrous 1 MG Capsule PO (22:47)
[2022-05-22] MEDS: Mycophenolate Mofetil 250 MG Capsule 500 MG PO (22:48)
[2022-05-22] MEDS: Heparin Injection (Vial) 5,000 UNIT/ML VIAL 5000 UNIT SC (23:15)
[2022-05-23] VITALS (8 sets, daily range): BP systolic 116–127; BP diastolic 55–72; PULSE 76–96; RESP 18–20; TEMP 36.6–37.6; O2SAT 93–96
--- NOTE | 2022-05-23 05:15 | RAD_ITS ---
INDICATION: Possible aspiration EXAMINATION/TECHNIQUE: X-RAY - XR Chest 1 View COMPARISON: 05/21/2022 CXR FINDINGS: LINES/DEVICES: None. LUNGS: No consolidation, edema or effusion. No pneumothorax. Mild subsegmental atelectasis lung bases. MEDIASTINUM AND CARDIOVASCULAR STRUCTURES: Mild cardiomegaly similar to previous. BONES AND SOFT TISSUES: Unremarkable. RAD/Chest 1 View (Portable) IMPRESSION: No radiographic evidence of acute cardiopulmonary disease. Mild cardiomegaly. Electronically Signed: Salas Obrien MD at 5:41 EDT Reading Location ID and State: [address] [place] [address] Tel , Service support ,
[2022-05-23 07:28] LABS: Absolute Lymphocyte Count 1.27 X10^3/uL (0.83-4.51); Absolute Neutrophil Count 17.6 X10^3/uL (2.0-7.7); Basophil# 0.06 X10^3/uL; Basophil% 0.3 % (0-1); Eosinophil# 0.01 X10^3/uL; Hematocrit 42.6 % (40-54); Hemoglobin 13.4 g/dL (13.0-16.5); Lymphocyte # 1.27 X10^3/ul (0.83-4.51); Lymphocyte % 6.3 % (19-41); Mean Corp Hgb Conc 31.5 g/dL (32-36); Mean Corpuscular Hgb 28.2 pg (27.0-32.0); Mean Corpuscular Volume 89.5 fL (80-94); Mean Platelet Vol. 10.3 fl (6.2-12.0); Monocyte# 1.08 X10^3/uL; Monocyte% 5.3 % (0-10); NRBC Flagged by Analyzer 0 % (0-5); Neutrophil # 17.64 X10^3/uL (2.7-7.7); Neutrophil % 87.4 % (47-70); Platelet Count 226 K/mm3 (150-450); RBC Distribution Width SD 42.5 fl (35.1-43.9); Red Blood Count 4.76 M/mm3 (4.6-6.2); White Blood Count 20.2 K/mm3 (4.4-11.0)
--- NOTE | 2022-05-23 07:31 | CT_ITS ---
STUDY: CT CHEST WITHOUT CONTRAST REASON FOR EXAM: Male, 71 years old. Multiple B/L pulm nodules in CT ABD RADIATION DOSAGE (If Supplied By Facility): CTDIvol = ( 18.90 ) mGy, DLP = ( 661.11 ) mGycm TECHNIQUE: Transaxial imaging was performed without the administration of intravenous contrast material. Multiplanar coronal and sagittal images were reformatted. Individualized dose optimization techniques were used for this CT. COMPARISON: Comparison is made with prior chest radiograph done earlier in the day as well as prior CT scans abdomen and pelvis dated May 21, 2022. FINDINGS: CHEST There is a 3.8 cm x 3.5 cm x 4.1 cm soft tissue mass in the proximal portion of the esophagus. The esophagus is dilated proximal to these lesion with air-fluid level. Esophageal carcinoma should be ruled out. Increased markings are seen at the lung bases suggestive of scarring. There is a 2.6 cm pleural-based linear density in the posteromedial segment of the left lower lobe. There is also evidence of a linear 1.6 mm density in the peripheral aspect of the right lower lung. This is pleural-based. There is no demonstrated pleural abnormality. There are calcifications of the coronary arteries. Normal mediastinum. Normal hilar regions. Normal unenhanced pulmonary arteries. Normal aorta arch and descending thoracic aorta. There are mild degenerative changes of the thoracic spine. Mild fluid distention of the distal esophagus. There is a 2.3 cm x 2.4 cm right adrenal mass. Fatty infiltration of the liver. CT/Chest WITH Contrast IMPRESSION: Soft tissue mass in the proximal esophagus with her every level and dilatation of the proximal esophagus. Fluid distention of the distal esophagus. Findings suggestive of scarring at the lung bases and possible tiny metastatic deposits. Right adrenal mass. Electronically Signed: Ramesh Coello MD at 8:44 EDT ,
--- NOTE | 2022-05-23 07:43 | PCM.PN.HOSP ---
Reason for Visit Reason for Visit: Diagnoses Esophageal obstruction (05/21/22) Other dysphagia (05/21/22) Subjective Subjective Follow-up for esophageal dysphagia, concern for aspiration and fever Patient had fever Tmax 101.6 Fahrenheit. Blood cultures x2 ordered. Patient on IV antibiotic Zosyn since admission. Objective Data Objective Data Vital Signs: Vital Signs Temp Pulse Resp BP Pulse Ox O2 Del Method O2 Flow Rate 98.6 F 96 18 127/66 H 94 Nasal Cannula 4 05/23/22 02:10 05/23/22 02:10 05/23/22 02:10 05/23/22 02:10 05/23/22 02:10 05/23/22 02:10 05/23/22 02:10 Oxygen Flow Rate (L/min) 4 Oxygen Delivery Method Nasal Cannula Weight: 216 lb 7.903 oz Body Mass Index (BMI) 30.2 Intake & Output: Intake and Output for Last 24 Hours 05/21/22 05/22/22 05/23/22 23:59 23:59 23:59 Intake Total 1000 / 1000 52 / 152 450 / 450 Output Total 250 / 250 50 / 50 Balance 750 / 750 2 / 102 450 / 450 Lab / Micro Data Result Diagrams: 05/23/22 07:10 05/23/22 07:10 Labs: Laboratory Results - last 24 hr 05/22/22 18:06: POC Glucose 142 H 05/23/22 07:10: WBC 20.2 H, RBC 4.76, Hgb 13.4, Hct 42.6, MCV 89.5, MCH 28.2, MCHC 31.5 L, RDW Std Deviation 42.5, RDW Coeff of Ayaka 13.0, Plt Count 226, MPV 10.3, Immature Gran % (Auto) 0.700, Neut % (Auto) 87.4 H, Lymph % (Auto) 6.3 L, [place] % (Auto) 5.3, Eos % (Auto) 0.0, Baso % (Auto) 0.3, Absolute Neuts (auto) 17.6 H, Absolute Lymphs (auto) 1.27, Nucleated RBC % 0 Radiography Diagnostic Testing: Radiology Impression Chest X-Ray 05/23/22 05:15 IMPRESSION: No radiographic evidence of acute cardiopulmonary disease. Mild cardiomegaly. Electronically Signed: Salas Obrien MD at 5:41 EDT Reading Location ID and State: [facility] / [place] Tel , Service support , Physical Exam Narrative Patient had fluoroscopy yesterday and Dr. Wylie thinks along with stretch of stenosis/stricture. Patient needs liquid but regurgitates back in the morning. Patient had EGD on 05/21. Dysphagia. Lost weight in the last 1 month. Generalized weakness. Physical exam General: Alert, Oriented x3, Cooperative HEENT: Atraumatic, PERRLA, EOMI, Normocephalic Oral: Oral mucosa moist. No Gingival or Mucosal Lesions/ Ulcerations Neck: Supple, No JVD, Negative Carotid Bruits Lungs: Air entry diminished in bilateral lung bases. No crepitation/rhonchi Cardiovascular: Regular rate, Regular Rhythm, Normal S1, Normal S2, ejection systolic murmur right second ICS, left second ICS and LLSB. Abdomen: Bowel Sounds Present, Soft, Non Tender, Non-Distended : No renal angle tenderness. No suprapubic tenderness. Extremities: No edema, Capillary Refill Less than 3 Seconds Skin: No rashes, No breakdown Musculoskeletal: No Tenderness to Palpation of Joints or Extremities Neurological: Cranial nerves II-XII grossly intact, DTR 2+/4 and Symmetrical, Neuro grossly intact Psych/Mental Status: Flat affect. Assessment & Plan Assessment/Plan (1) Esophageal dysphagia: (2) Esophageal stricture: PLAN: Plan 71-year-old gentleman with history of ESRD status postrenal transplant now CKD stage III presents with progressive esophageal dysphagia morning thoracic region. He had intermittent problem for last few weeks. He states this exacerbated when he took a big antibiotic pill about 3 weeks ago 1. Dysphagia secondary to esophageal stricture: Patient had EGD on 05/21 reported full in upper third of esophagus and was successfully removed. Malignant appearing esophageal stenosis dilated.Frozen section was negative for carcinoma. CT of the abdomen and pelvis individually reviewed. Multiple bilateral pulmonary nodules measuring up to 3 x 7 mm on right. Normal liver. 2.8 cm heterogeneous right renal mass. Right renal pelvic transplant. Dr. Wylie is already consulted. Plan for fluoroscopy in the OR today. Patient has history of smoking started in 20s and smoked for more than 50 years. 05/23:. Fluoroscopy by Dr. Wylie shows be sent to stretcher for stricture. CT chest with IV contrast was done in the morning which shows soft tissue mass in the upper thoracic esophagus with dilated and patulous esophagus. Right adrenal mass. Findings discussed with Dr. Wylie. Oncology consult requsted 2. 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 ID consulted. Probability of possible noninfectious cause of fever. CT chest does not showconsolidation or pneumonic infiltrate. 3. Status post renal transplant: On tacrolimus 1 mg p.o. twice daily, prednisone 5 mg daily and mycophenolate 500 mg twice daily. Patient also on Bactrim DS 1 tablet on Thursday. Kidney function on baseline. continue to monitor his renal function 4. HTN/HLD ? Blood pressure is stable ? Can resume his home medications 5. GERD ? Stable ? Can resume famotidine DVT: Heparin Plan of care discussed with patient and his near the bedside. Total time of the visit including total time spent in counseling or coordination of care, (more than 50% of the total time, spent in obtaining medical information from nurses and other ancillary care providers,explaining to the patient about labs, imaging, diagnosis and management of active complex medical conditions), discussion with GI, oncology and infectious disease, review of labs and imaging clinical update given to patient and his is 55 minutes Clinical Impression(s) from Imaging Studies Chest X-Ray 05/21/22 11:39 IMPRESSION: Stable cardiomegaly with no acute or active cardiopulmonary disease. Electronically Signed: Johnny Avendaño at 12:03 EDT , Abdomen/Pelvis CT 05/21/22 14:51 IMPRESSION: Bibasilar infiltrates. Bilateral pulmonary nodules. Recommend follow-up CT chest nonemergently. Right adrenal mass. Recommend follow-up adrenal CT or MRI. Bilateral renal atrophy and right pelvic renal transplant. Electronically Signed: Aaron Dunn MD at 22:50 EDT , Chest X-Ray 05/23/22 05:15 IMPRESSION: No radiographic evidence of acute cardiopulmonary disease. Mild cardiomegaly. Electronically Signed: Salas Obrien MD at 5:41 EDT , Chest CT 05/23/22 07:31 IMPRESSION: Soft tissue mass in the proximal esophagus with her every level and dilatation of the proximal esophagus. Fluid distention of the distal esophagus. Findings suggestive of scarring at the lung bases and possible tiny metastatic deposits. Right adrenal mass. Charges/Coding Visit Charges Inpatient E&M: 01753 Subs Hosp L3
[2022-05-23] MEDS: 0.9% Normal Saline 1,000 ML 60 ML IV (07:55)
[2022-05-23 07:59] LABS: Anion Gap 10 (5-15); BUN 25 mg/dL (7-18); BUN/Creat Ratio 22.3 RATIO (10-20); Calcium,Total 9.5 mg/dL (8.5-10.1); Chloride 105 mmol/L (98-107); Creatinine, Serum 1.12 mg/dL (0.70-1.30); EST Glomerular Filtration Rate 69 mL/min (>60); Est Glom Filt Rate - Afr Amer 84 mL/min (>60); Glucose 122 mg/dL (74-106); Potassium 4.2 mmol/L (3.5-5.1); Sodium Level 141 mmol/L (136-145)
--- NOTE | 2022-05-23 08:08 | NURSING ---
ASsisted via bed to radiology by germán Richardson. Pt had portable o2 at 3L NC.
[2022-05-23 08:36] LABS: Carcinoembryonic Antigen 2.6 ng/mL (0.0-4.7)
[2022-05-23] MEDS: Pantoprazole Sodium 20 MG Tablet PO (09:42)
[2022-05-23] MEDS: amLODIPine 2.5 MG Tablet PO (09:42)
[2022-05-23] MEDS: Tacrolimus Anhydrous 1 MG Capsule PO (09:42)
[2022-05-23] MEDS: Mycophenolate Mofetil 250 MG Capsule 500 MG PO (09:42)
[2022-05-23] MEDS: predniSONE 5 MG Tablet PO (09:43)
[2022-05-23] MEDS: Niacin SA 500 MG Tablet PO (09:43)
[2022-05-23] MEDS: Heparin Injection (Vial) 5,000 UNIT/ML VIAL 5000 UNIT SC ×2 (09:43→21:46)
[2022-05-23] MEDS: Smz/Tmp Ds Tablet 1 TABLET PO (09:43)
[2022-05-23] MEDS: Metoprolol Tartrate 50 MG Tablet PO (09:43)
--- NOTE | 2022-05-23 12:02 | NURSING ---
Pt checked his insulin pump per RN request and it was 252 at this time. Pt is giving himself insulin via his insulin pump.
--- NOTE | 2022-05-23 13:42 | CHAPLAIN ---
Type of Pastoral Visit _x__ Initial Visit ___ Follow-up Visit ___ On-call Visit ___ General Patient Visit ___ Spiritual Assessment ___ Family Conference ___ Bereavement ___ Rapid Response ___ Code Blue ___ Other (describe below) Pastoral Care Referral From _x__ Patient _x__ Family ___ Nurse ___ Physician ___ Pipe Testing Technician ___ Representative Phlebotomy Services ___ Other (describe below) Sacrament/Intervention ___ Active listening ___ Anointing ___ Orthodox ___ Bereavement ___ Communion ___ Shanell exploration ___ ___ Life review _x__ Prayer ___ Reconciliation ___ Sacrament of Sick _x__ Supportive presence ___ Wedding ___ Other (describe below) Pastoral Comments patient is sleeping but spouse is in the room and awake; spouse indicates that best to let pt sleep but that she would appreciate a prayer for both of them; spouse expresses appreciation for 'Jewish support in this hospital'; spouse says family has been very helpful; offer of ongoing support given
--- NOTE | 2022-05-23 13:58 | NURSING ---
Respiratory in with pt and just collected COVID PCR and resp panel and sent to lab at this time.
--- NOTE | 2022-05-23 14:15 | CON.PCM.ID_ITS ---
Assessment & Plan Assessment/Plan (1) Esophageal stricture: (2) Neuropathy in diabetes: QUALIFIERS: Diabetes mellitus type: type 2 (3) Fever: PLAN: Will check UA/Ucx, covid and resp pcr panel. Bcx pending. On zosyn. Chronic L foot ulcer, reports it has been improving. Bx done of proximal esophageal mass. Will follow, thank you HPI Consult Data Date of Consult: 05/23/22 HPI Narrative Reason for Consultation: fever HPI Narrative: MAHAD SULLIVAN, is a 71 M with h/o DM, neuropathy, htn, presented with about 2 months pain/difficulty swallowing, lost about 30lbs due to poor intake. Had EGD with bx on 05/21/22, then admitted here. Put on zosyn, had fever last night. C/o some dry cough past 2-3 days, no other focal symptoms. Full ROS performed and neg except as noted above. [facility] Medical History Ambulates with cane Amputation finger Amputation of toe Anemia of chronic disease Atrial fibrillation Diabetes mellitus, type II Gastric reflux History of steroid therapy HLD (hyperlipidemia) Hypertension Hypertension Insulin dependent diabetes mellitus Wears dentures Wears glasses Wears hearing aid Home Medications aspirin 81 mg tablet,delayed release 81 mg PO DAILY heart heatlh 11/29/12 [History Last Taken 04/22/21] metoprolol tartrate 50 mg tablet 50 mg PO BID bp 11/29/12 [History Last Taken 04/25/21 08:00] niacin 250 mg tablet,extended release (Slo-Niacin) 500 mg PO DAILY b vitamin 11/29/12 [History Last Taken 05/18/15 09:00] rosuvastatin 20 mg tablet (Crestor) 20 mg PO QHS hld 11/29/12 [History Last Taken 05/17/15] famotidine 20 mg tablet 20 mg PO QHS GERD 05/11/15 [History Last Taken 05/17/15] mycophenolate mofetil 500 mg tablet (CellCept) 500 mg PO BID transplant kidney 05/11/15 [History Last Taken 04/25/21 08:00] prednisone 2.5 mg tablet 5 mg PO DAILY steriod 05/11/15 [History Last Taken 04/25/21 08:00] tacrolimus 1 mg capsule, immediate-release (Prograf) 1 mg PO BID anit rejection 05/11/15 [History Last Taken 05/18/15 09:00] cholecalciferol (vitamin D3) 25 mcg (1,000 unit) tablet (Vitamin D3) 2,000 unit PO DAILY vitamin 05/17/15 [History Last Taken 05/18/15] insulin aspart U-100 100 unit/mL (3 mL) subcutaneous pen (Novolog FlexPen U-100 Insulin aspart) See Protocol subcut CONT DM 02/06/18 [History Last Taken 02/06/18] sulfamethoxazole 800 mg-trimethoprim 160 mg tablet (Bactrim DS) 1 tab PO MOWEFR antireection 02/26/22 [History Last Taken Unknown] amlodipine 2.5 mg tablet 2.5 mg PO DAILY 04/03/22 [History Last Taken Unknown] omeprazole 20 mg tablet,delayed release 20 mg PO DAILY 05/21/22 [History Last Taken Unknown] Allergy/AdvReac Type Severity Reaction Status Date / Time No Known Allergies Allergy Verified 05/21/22 10:16 Family History Mother Kidney disease Hypertension High cholesterol Diabetes Father Kidney disease Hypertension High cholesterol Diabetes Surgical History Amputation of foot Hx of kidney transplant Hx of surgical amputation of finger Renal transplant recipient Social History household members: spouse, family and children Smoking Status: Former smoker how long ago did patient quit smoking: Quit~ 50 years prior smoked youth until quit 2 ppd. alcohol intake: former details: Drank heavily in youth, stopped ~ 50 years prior. substance use type: does not use what type of physical activity do you participate in: walking Physical Exam Const alert, oriented x3 and no apparent distress General Appearance: cooperative HEENT normocephalic and head/scalp atraumatic Eyes EOMs intact bilaterally Neck supple and No nodes Resp normal air movement and clear to auscultation bilaterally Cardio regular rate and regular rhythm GI soft to palpation, non-tender and non-distended Extremity General Extremity: edema Skin no rashes or lesions noted Neuro CN's II-XII intact bilaterally Lab / Micro Data Attestation: I reviewed the patient's lab results. Result Diagrams: 05/23/22 07:10 05/23/22 07:10 Labs: Laboratory Results - last 24 hr 05/22/22 06:15: Carcinoembryonic Ag 2.6 05/22/22 18:06: POC Glucose 142 H 05/23/22 07:10: WBC 20.2 H, RBC 4.76, Hgb 13.4, Hct 42.6, MCV 89.5, MCH 28.2, MCHC 31.5 L, RDW Std Deviation 42.5, RDW Coeff of Ayaka 13.0, Plt Count 226, MPV 10.3, Immature Gran % (Auto) 0.700, Neut % (Auto) 87.4 H, Lymph % (Auto) 6.3 L, [place] % (Auto) 5.3, Eos % (Auto) 0.0, Baso % (Auto) 0.3, Absolute Neuts (auto) 17.6 H, Absolute Lymphs (auto) 1.27, Nucleated RBC % 0 05/23/22 07:10: Sodium 141, Potassium 4.2, Chloride 105, Carbon Dioxide 26.0, Anion Gap 10, BUN 25 H, Creatinine 1.12, Estim Creat Clear Calc 66.30, Est GFR (MDRD) Af Amer 84, Est GFR (MDRD) Non-Af 69, BUN/Creatinine Ratio 22.3 H, Glucose 122 H, Calcium 9.5 Radiology Impression Chest X-Ray 05/23/22 05:15 IMPRESSION: No radiographic evidence of acute cardiopulmonary disease. Mild cardiomegaly. Electronically Signed: Salas Obrien MD at 5:41 EDT , Chest CT 05/23/22 07:31 IMPRESSION: Soft tissue mass in the proximal esophagus with her every level and dilatation of the proximal esophagus. Fluid distention of the distal esophagus. Findings suggestive of scarring at the lung bases and possible tiny metastatic deposits. Right adrenal mass. Electronically Signed: Ramesh Coello MD at 8:44 EDT ,
[2022-05-23 14:42] LABS: Mucous, Urine 0 SEEN /hpf (<or=2+); Red Blood Cells-Urine 0 SEEN /hpf (0-5); Squamous Epithelial Cells - UA 0 SEEN /hpf (0-5)
[2022-05-23 14:44] LABS: Color, Urine Amber (Yellow); Glucose, Dipstick 250 mg/dl (Normal); Ketone-Dipstick 50 mg/dl (Negative); Leukocyte Esterase-Dipstick 25 /ul (Negative); Nitrite-Dipstick Negative (Negative); Occult Blood-Urine Negative /ul (Negative); Protein-Dipstick 30 mg/dl (Negative); Specific Gravity, Urine 1.015 (1.002-1.030); Urine Bilirubin Dipstick Negative (Negative); Urine Clarity Clear (Clear); Urine Urobilinogen 4 mg/dl (Normal)
[2022-05-23 14:49] LABS: Procalcitonin 0.41 ng/mL (0.00-0.09)
[2022-05-23 14:57] LABS: Bacteria RARE /hpf (None Seen); White Blood Cells 0-5 SEEN /hpf (0-5)
--- NOTE | 2022-05-23 17:20 | NURSING ---
This Morning pt did fine with full liquid diet but then when this RN gave him his scheduled meds that were crushed, pt stated he was having a hard time getting them down despite being crushed and in yogurt. This nurse tried small bites and also waiting longer inbetween bites but pt continued to cough and spit yogurt and particles back out. This Nurse consulted Speech Therapy, and Speech Therapy talked with Dr. Balderas and Dr. balderas talked with Dr. Mcclure. Dr. Mcclure spoke to pt while this RN was just in the room. Dr. Mcclure wants pt to go to [facility] for higher level of care. Pt and both agreeable to that. 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
--- NOTE | 2022-05-23 20:29 | PCM.DC.SUM ---
Providers Date of Admission: 05/21/22 Date of Discharge: 05/23/22 Primary Care Physician: Dr. Mikayla Lopez MD Consultations 05/21/22 15:46 Consult: Onc/Wound/outbound call center representative Routine Comment: Reason for Consult:: left great toe wound 05/21/22 20:19 Consult: Gastroenterology Routine Consulting Provider: [facility] Reason for Consult: Stricture EMERGENT Consult: No MD Notified: Yes Date Notified: 05/21/22 Time Notified: 20:19 Method of Notification: Verbal 05/23/22 12:16 Consult: Infectious Disease Routine Consulting Provider: Td Arroyo Reason for Consult: fever on zosyn, no pneumonia but aspiration? EMERGENT Consult: No Notified: Yes Date Notified: 05/23/22 Time Notified: 12:16 Method of Notification: Text 05/23/22 14:43 Consult: Oncology/Hematology Routine Consulting Provider: [facility] Reason for Consult: High suspicion of esophageal cancer stricture EMERGENT Consult: No Notified: Yes Date Notified: 05/23/22 Time Notified: 14:43 Method of Notification: Verbal Reason For Visit: ESOPHAGEAL STRICTURE Diagnosis Discharge Diagnosis (1) Esophageal dysphagia: Status: Acute Code(s): R13.19 - Other dysphagia (2) Esophageal stricture: Status: Acute Code(s): K22.2 - Esophageal obstruction Plan 71-year-old gentleman with history of ESRD status postrenal transplant now CKD stage III presents with progressive esophageal dysphagia morning thoracic region. He had intermittent problem for last few weeks. He states this exacerbated when he took a big antibiotic pill about 3 weeks ago 1. Dysphagia secondary to esophageal stricture: Patient had EGD on 05/21 reported full in upper third of esophagus and was successfully removed. Malignant appearing esophageal stenosis dilated.Frozen section was negative for carcinoma. CT of the abdomen and pelvis individually reviewed. Multiple bilateral pulmonary nodules measuring up to 3 x 7 mm on right. Normal liver. 2.8 cm heterogeneous right renal mass. Right renal pelvic transplant. Dr. Wylie is already consulted. Plan for fluoroscopy in the OR today. Patient has history of smoking started in 20s and smoked for more than 50 years. 05/23:. Fluoroscopy by Dr. Wylie shows be sent to stretcher for stricture. CT chest with IV contrast was done in the morning which shows soft tissue mass in the upper thoracic esophagus with dilated and patulous esophagus. Right adrenal mass. Findings discussed with Dr. Wylie. Oncology consult requested. Dr. Wylie wanted me to transfer to tertiary care center where they can do advanced EGD with EUS and esophageal stenting. He did not want to put PEG tube as mitral and the surgical approach if it turns out to be esophageal cancer or surgically operable. For that reason I called [facility] which advised to call [facility] and talk to hospitalist and he accepted the patient. Prior to that, I called [facility] as per patient request but they are not accepting any GI patient. 2. 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 ID was consulted. COVID-19 PCR negative. Urine culture negative. Probability of possible noninfectious cause of fever. CT chest does not show consolidation or pneumonic infiltrate. Continue IV Zosyn 3. Status post renal transplant: On tacrolimus 1 mg p.o. twice daily, prednisone 5 mg daily and mycophenolate 500 mg twice daily. Patient also on Bactrim DS 1 tablet on Thursday. Kidney function on baseline. continue to monitor his renal function 4. HTN/HLD ? Blood pressure is stable ? Can resume his home medications 5. GERD ? Stable ? Can resume famotidine DVT: Heparin Plan of care discussed with patient and his near the bedside. Total time spent, exact 65 minutes on transfer process to formerly [facility], discussion with multiple site coordinator in [facility], [facility] and [facility] and hospitalist including clinic, coordination of care with nurses and ancillary staff, review of imaging and blood test and discussion with the patient on follow-up instructions. Clinical Impression(s) from Imaging Studies Chest X-Ray 05/21/22 11:39 IMPRESSION: Stable cardiomegaly with no acute or active cardiopulmonary disease. Electronically Signed: Johnny Avendaño, at 12:03 EDT , Abdomen/Pelvis CT 05/21/22 14:51 IMPRESSION: Bibasilar infiltrates. Bilateral pulmonary nodules. Recommend follow-up CT chest nonemergently. Right adrenal mass. Recommend follow-up adrenal CT or MRI. Bilateral renal atrophy and right pelvic renal transplant. Electronically Signed: Aaron Dunn MD at 22:50 EDT Reading Location ID and State: [facility] / [place] , Service support , Chest X-Ray 05/23/22 05:15 IMPRESSION: No radiographic evidence of acute cardiopulmonary disease. Mild cardiomegaly. Electronically Signed: Salas Obrien MD at 5:41 EDT , Chest CT 05/23/22 07:31 IMPRESSION: Soft tissue mass in the proximal esophagus with her every level and dilatation of the proximal esophagus. Fluid distention of the distal esophagus. Findings suggestive of scarring at the lung bases and possible tiny metastatic deposits. Right adrenal mass. Medications at Discharge Home Medications aspirin 81 mg tablet,delayed release 81 mg PO DAILY heart heatlh 11/29/12 metoprolol tartrate 50 mg tablet 50 mg PO BID bp 11/29/12 niacin 250 mg tablet,extended release (Slo-Niacin) 500 mg PO DAILY b vitamin 11/29/12 rosuvastatin 20 mg tablet (Crestor) 20 mg PO QHS hld 11/29/12 famotidine 20 mg tablet 20 mg PO QHS GERD 05/11/15 mycophenolate mofetil 500 mg tablet (CellCept) 500 mg PO BID transplant kidney 05/11/15 prednisone 2.5 mg tablet 5 mg PO DAILY steriod 05/11/15 tacrolimus 1 mg capsule, immediate-release (Prograf) 1 mg PO BID anit rejection 05/11/15 cholecalciferol (vitamin D3) 25 mcg (1,000 unit) tablet (Vitamin D3) 2,000 unit PO DAILY vitamin 05/17/15 insulin aspart U-100 100 unit/mL (3 mL) subcutaneous pen (Novolog FlexPen U-100 Insulin aspart) See Protocol subcut CONT DM 02/06/18 sulfamethoxazole 800 mg-trimethoprim 160 mg tablet (Bactrim DS) 1 tab PO MOWEFR antireection 02/26/22 amlodipine 2.5 mg tablet 2.5 mg PO DAILY 04/03/22 omeprazole 20 mg tablet,delayed release 20 mg PO DAILY 05/21/22 Physical Exam Narrative Patient was seen and examined yesterday Please see the progress note same date Weight / BMI Weight Weight: 216 lb 7.903 oz Body Mass Index (BMI) 30.2 ABG / Lab / Microbiology Data Result Diagrams: 05/23/22 07:10 05/23/22 07:10 Laboratory: Laboratory Results - last 24 hr 05/22/22 06:15: Carcinoembryonic Ag 2.6 05/22/22 18:06: POC Glucose 142 H 05/23/22 07:10: WBC 20.2 H, RBC 4.76, Hgb 13.4, Hct 42.6, MCV 89.5, MCH 28.2, MCHC 31.5 L, RDW Std Deviation 42.5, RDW Coeff of Ayaka 13.0, Plt Count 226, MPV 10.3, Immature Gran % (Auto) 0.700, Neut % (Auto) 87.4 H, Lymph % (Auto) 6.3 L, Stewart % (Auto) 5.3, Eos % (Auto) 0.0, Baso % (Auto) 0.3, Absolute Neuts (auto) 17.6 H, Absolute Lymphs (auto) 1.27, Nucleated RBC % 0 05/23/22 07:10: Sodium 141, Potassium 4.2, Chloride 105, Carbon Dioxide 26.0, Anion Gap 10, BUN 25 H, Creatinine 1.12, Estim Creat Clear Calc 66.30, Est GFR (MDRD) Af Amer 84, Est GFR (MDRD) Non-Af 69, BUN/Creatinine Ratio 22.3 H, Glucose 122 H, Calcium 9.5 05/23/22 13:58: Procalcitonin 0.41 H 05/23/22 14:30: Urine Color Judith, Urine Clarity Clear, Urine pH 5.0, Ur Specific [place] 1.015, Urine Protein 30 H, Urine Glucose (UA) 250 H, Urine Ketones 50 H, Urine Occult Blood Negative, Urine Nitrite Negative, Urine Bilirubin Negative, Urine Urobilinogen 4 H, Ur Leukocyte Esterase 25 H, Urine RBC 0 SEEN, Urine WBC 0-5 SEEN, Ur Squamous Epith Cells 0 SEEN, Urine Bacteria RARE, Urine Mucus 0 SEEN Radiography Diagnostic Testing: Radiology Impression Chest X-Ray 05/23/22 05:15 IMPRESSION: No radiographic evidence of acute cardiopulmonary disease. Mild cardiomegaly. Electronically Signed: Salas Obrien MD at 5:41 EDT , Chest CT 05/23/22 07:31 IMPRESSION: Soft tissue mass in the proximal esophagus with her every level and dilatation of the proximal esophagus. Fluid distention of the distal esophagus. Findings suggestive of scarring at the lung bases and possible tiny metastatic deposits. Right adrenal mass. Electronically Signed: Ramesh Coello MD at 8:44 EDT , Meaningful Use Info Meaningful Use Diagnoses (Choose all that apply): None applicable Discharge Plan Admission Admit Date/Time: 05/21/22 13:47 Attending Provider: Marshall Mcclure Primary Care Provider: Mikayla Lopez Consulting Providers: Margarito Wylie ; Td Arroyo ; Orion Renee ; Miky Koenig ; Urbano Freeman ; Td Honeycutt ; Sean Hernandez ; Geoff Reid ; Glen García ; Sherri Augustin BODY [employer]ER Discharge Orders/Prescriptions Prescriptions: No Action amlodipine 2.5 mg tablet 2.5 mg PO DAILY aspirin 81 MG tablet 81 mg PO DAILY Label Comments: HEART HEALTH niacin [Slo-Niacin] 250 MG tablet extended release 500 mg PO DAILY Label Comments: SUPPLEMENT metoprolol tartrate 50 MG tablet 50 mg PO BID Label Comments: BLOOD PRESSURE rosuvastatin [Crestor] 20 MG tablet 20 mg PO QHS Label Comments: decrease cholesterol mycophenolate mofetil [CellCept] 500 MG tablet 500 mg PO BID Label Comments: ANTI-REJECTION MED prednisone 2.5 MG tablet 5 mg PO DAILY Label Comments: STEROID tacrolimus [Prograf] 1 MG capsule 1 mg PO BID Label Comments: KIDNEYS famotidine 20 MG tablet 20 mg PO QHS Label Comments: GERD cholecalciferol (vitamin D3) [Vitamin D3] 1,000 UNIT tablet 2,000 unit PO DAILY Label Comments: SUPPLEMENT insulin aspart U-100 [Novolog FlexPen U-100 Insulin] 100 UNITS/ML insulin pen See Protocol subcut CONT Protocol: 6. Sliding Scale Insulin Custom Condition: mg/dl range Dose/Route: Number of Units Instruction: using insulin pump Protocol Text: Custom Sliding Scale Rx Instructions: insulin pump sulfamethoxazole-trimethoprim [Bactrim DS] 800-160 mg tablet 1 tab PO MOWEFR Rx Instructions: 1 TAB orally MWF omeprazole 20 mg Tablet,Delayed Release (Dr/Ec) 20 mg PO DAILY Referrals / Follow Up: Mikayla Lopez MD [Primary Care Provider] - Disposition Disposition (needs filled in before D/C Order can be placed): Acute Care Hospital Charges/Coding Visit Charges Inpatient E&M: 77911 Disch Hosp >30min
== END 2022-05-23 23:00 | disposition short-term general hospital (02) | DRG 392 ==
LOC: ED 12:08 → SDC 12:28 → MS3 15:33
PROVIDERS: Family Medicine; Internal Medicine Infectious Disease; Admitting Provider Internal Medicine Gastroenterology; Emergency Provider Student in an Organized Health Care Education/Training Program; PCP Internal Medicine; Visit Provider Internal Medicine
PROC: 0DJ08ZZ Inspection of Upper Intestinal Tract, Via Natural or Artificial Opening Endoscopic (ICD-10-PCS; CPT 43235; principal; 2022-05-21 12:10)
DX: K22.2 Esophageal obstruction (principal); Z94.0 Kidney transplant status; D63.1 Anemia in chronic kidney disease; E11.610 Type 2 diabetes mellitus with diabetic neuropathic arthropathy; E11.22 Type 2 diabetes mellitus with diabetic chronic kidney disease; E11.40 Type 2 diabetes mellitus with diabetic neuropathy, unspecified; I48.0 Paroxysmal atrial fibrillation; Z79.4 Long term (current) use of insulin; N18.30 Chronic kidney disease, stage 3 unspecified; Z89.422 Acquired absence of other left toe(s); Z89.431 Acquired absence of right foot; E27.9 Disorder of adrenal gland, unspecified; E78.5 Hyperlipidemia, unspecified; I12.9 Hypertensive chronic kidney disease with stage 1 through stage 4 chronic kidney disease, or unspecified chronic kidney disease; K21.9 Gastro-esophageal reflux disease without esophagitis; T18.128A Food in esophagus causing other injury, initial encounter; Z89.022 Acquired absence of left finger(s); K44.9 Diaphragmatic hernia without obstruction or gangrene; X58.XXXA Exposure to other specified factors, initial encounter; E66.9 Obesity, unspecified; Z68.30 Body mass index [BMI] 30.0-30.9, adult; Z79.52 Long term (current) use of systemic steroids; Z79.82 Long term (current) use of aspirin; Z79.899 Other long term (current) drug therapy; Z87.891 Personal history of nicotine dependence
CPT/HCPCS: 36415; 71045; 71260; 74177; 80048; 80053; 81001; 82378; 82962; 84145; 85025; 85610; 86140; 87040; 87086; 87635; 88305; 88312; 88313; 88331; 92610; 93005; 99283; J7030; J7050; J7120; Q9967; A4216; J1610; J2405; U0003; U0005

== ENCOUNTER 2022-07-04 17:45 | Emergency (ER) | payer OTHER, SELFPAY ==
[2022-07-04 17:45] VITALS: BP 107/60; PULSE 96; RESP 16; TEMP 36.4; O2SAT 97; BMI 29.0
--- NOTE | 2022-07-04 18:18 | EX.ED.DYSGE1 ---
HPI History of Present Illness Chief Complaint: Abn Labs Informant: patient Narrative Narrative: Patient had labs drawn recently at [facility], they told him to come to the emergency department today because his potassium is low. Patient does not know any other details, and this is according to him only. He states he feels fine except for being a little tired. He is being treated with chemotherapy and radiation for esophageal cancer. He cannot swallow so he has a feeding tube. He is a diabetic and has an insulin pump, they have had him on steroids and so his blood sugars have been anywhere between the 70s and 400, right now he pulls out his meter and is at 71. [facility] Medical History (Updated 07/04/22 @ 19:[address] Junior Balderrama MD) Ambulates with cane Amputation finger Amputation of toe Anemia of chronic disease Atrial fibrillation Diabetes mellitus, type II Esophageal cancer Gastric reflux History of steroid therapy HLD (hyperlipidemia) Hypertension Hypertension Insulin dependent diabetes mellitus Wears dentures Wears glasses Wears hearing aid Home Medications aspirin 81 mg tablet,delayed release 81 mg PO DAILY heart heatlh 11/29/12 [History Last Taken 04/22/21] metoprolol tartrate 50 mg tablet 50 mg PO BID bp 11/29/12 [History Last Taken 04/25/21 08:00] niacin 250 mg tablet,extended release (Slo-Niacin) 500 mg PO DAILY b vitamin 11/29/12 [History Last Taken 05/18/15 09:00] rosuvastatin 20 mg tablet (Crestor) 20 mg PO QHS hld 11/29/12 [History Last Taken 05/17/15] famotidine 20 mg tablet 20 mg PO QHS GERD 05/11/15 [History Last Taken 05/17/15] mycophenolate mofetil 500 mg tablet (CellCept) 500 mg PO BID transplant kidney 05/11/15 [History Last Taken 04/25/21 08:00] prednisone 2.5 mg tablet 5 mg PO DAILY steriod 05/11/15 [History Last Taken 04/25/21 08:00] tacrolimus 1 mg capsule, immediate-release (Prograf) 1 mg PO BID anit rejection 05/11/15 [History Last Taken 05/18/15 09:00] cholecalciferol (vitamin D3) 25 mcg (1,000 unit) tablet (Vitamin D3) 2,000 unit PO DAILY vitamin 05/17/15 [History Last Taken 05/18/15] insulin aspart U-100 100 unit/mL (3 mL) subcutaneous pen (Novolog FlexPen U-100 Insulin aspart) See Protocol subcut CONT DM 02/06/18 [History Last Taken 02/06/18] sulfamethoxazole 800 mg-trimethoprim 160 mg tablet (Bactrim DS) 1 tab PO MOWEFR antireection 02/26/22 [History Last Taken Unknown] amlodipine 2.5 mg tablet 2.5 mg PO DAILY 04/03/22 [History Last Taken Unknown] omeprazole 20 mg tablet,delayed release 20 mg PO DAILY 05/21/22 [History Last Taken Unknown] Allergy/AdvReac Type Severity Reaction Status Date / Time No Known Allergies Allergy Verified 07/04/22 17:47 Family History Mother Kidney disease Hypertension High cholesterol Diabetes Father Kidney disease Hypertension High cholesterol Diabetes Surgical History Amputation of foot Hx of kidney transplant Hx of surgical amputation of finger Renal transplant recipient Social History household members: spouse, family and children Smoking Status: Former smoker how long ago did patient quit smoking: Quit~ 50 years prior smoked youth until quit 2 ppd. alcohol intake: former details: Drank heavily in youth, stopped ~ 50 years prior. substance use type: does not use what type of physical activity do you participate in: walking ROS ROS ED Constitutional Constitutional ED: Reports fatigue; Denies body ache(s), chills, fever(s) or weakness Eyes Eyes: Denies change in vision or diplopia ENT ENT ED: Denies rhinorrhea or sore throat Cardiovascular Cardiovascular: Denies chest pain or palpitations Respiratory/Chest Respiratory/Chest: Denies cough or dyspnea Gastrointestinal Gastrointestinal: Denies abdominal pain, diarrhea, nausea or vomiting Genitourinary Genitourinary ED: Denies dysuria or hematuria Musculoskeletal Musculoskeletal: Denies back pain or neck pain Integumentary Denies abscess or rash Neurologic Neurologic: Denies headache(s), paresthesias or weakness Psychiatric Psychiatric: Denies anxiety or suicidal thoughts EXAM Physical Exam Const Vital Signs: 07/04/22 17:45 07/04/22 18:06 Temperature 97.6 F L Temperature Source Temporal Pulse Rate 96 Respiratory Rate 16 Respiratory Effort Normal Non-Labored Respiratory Pattern Normal Blood Pressure 107/60 Blood Pressure Mean 75 Pulse Ox 97 Oxygen Delivery Method Room Air Positive well nourished and well developed General Appearance ED: well developed and NAD HEENT Reports moist mucous membranes normocephalic and atraumatic Eyes PERRL and EOMs intact bilaterally Neck full ROM and supple Resp normal respiratory effort and clear to auscultation bilaterally Cardio regular rate, regular rhythm and no murmurs GI non-tender and non-distended GI Narrative: Left upper quadrant G-tube site benign, in place. Insulin pump site benign right lower quadrant. Auscultation: normoactive bowel sounds Palpation: soft Back/Spine no CVA tenderness General Back: other FROM Extremity normal to inspection General Extremety ED: Negative for edema, pulses abnormal or tenderness General Extremity: Negative for edema or pulses abnormal Neuro oriented x3, CN's II-XII intact bilaterally and no sensory deficits noted Neuro Narrative: Diffusely hyporeflexive with no clonus or Babinski. Sensorium / Orientation: awake and alert Motor Exam: strength 5/5 throughout Skin no rashes or lesions noted and no wounds MDM MDM MDM Narrative Medical decision making narrative: In reviewing the patient's labs, his potassium is normal at 5.0. I had nursing call the lab, there was no hemolysis seen, so this is likely a true value. I discussed with Dr. Bustillos who was on-call for oncology at [facility], he reviewed some records and found that actually, the patient had a high potassium reading at 6.1 and was advised to come because of that. There may have been hemolysis not sample since hours is normal, and we are all in agreement that the patient can be safely discharged home to follow-up as scheduled for his next appointment with oncology. Lab Data Attestation: I reviewed the patient's lab results. Labs: Laboratory Results - last 24 hr 07/04/22 07/04/22 18:40 18:40 WBC 9.5 RBC 4.49 L Hgb 12.2 L Hct 39.0 L MCV 86.9 MCH 27.2 MCHC 31.3 L RDW Std Deviation 41.4 RDW Coeff of Ayaka 13.2 Plt Count 178 MPV 11.2 Immature Gran % (Auto) 0.400 Neut % (Auto) 89.9 H Lymph % (Auto) 7.4 L [place] % (Auto) 1.9 Eos % (Auto) 0.2 Baso % (Auto) 0.2 Absolute Neuts (auto) 8.6 H Absolute Lymphs (auto) 0.70 L Nucleated RBC % 0 Sodium 137 Potassium 5.0 Chloride 101 Carbon Dioxide 30.0 Anion Gap 6 BUN 29 H Creatinine 0.88 Estim Creat Clear Calc 84.38 Est GFR (MDRD) Af Amer 110 Est GFR (MDRD) Non-Af 91 BUN/Creatinine Ratio 32.9 H Glucose 109 H Calcium 9.3 Discharge Plan Triage Chief Complaint: Abn Labs ED Provider: Junior Balderrama Dx/Rx/DC Orders Clinical Impression: Encounter for medical screening examination Instructions: ED Hyperkalemia Prescriptions: No Action amlodipine 2.5 mg tablet 2.5 mg PO DAILY aspirin 81 MG tablet 81 mg PO DAILY Label Comments: HEART HEALTH niacin [Slo-Niacin] 250 MG tablet extended release 500 mg PO DAILY Label Comments: SUPPLEMENT metoprolol tartrate 50 MG tablet 50 mg PO BID Label Comments: BLOOD PRESSURE rosuvastatin [Crestor] 20 MG tablet 20 mg PO QHS Label Comments: decrease cholesterol mycophenolate mofetil [CellCept] 500 MG tablet 500 mg PO BID Label Comments: ANTI-REJECTION MED prednisone 2.5 MG tablet 5 mg PO DAILY Label Comments: STEROID tacrolimus [Prograf] 1 MG capsule 1 mg PO BID Label Comments: KIDNEYS famotidine 20 MG tablet 20 mg PO QHS Label Comments: GERD cholecalciferol (vitamin D3) [Vitamin D3] 1,000 UNIT tablet 2,000 unit PO DAILY Label Comments: SUPPLEMENT insulin aspart U-100 [Novolog FlexPen U-100 Insulin] 100 UNITS/ML insulin pen See Protocol subcut CONT Protocol: 6. Sliding Scale Insulin Custom Condition: mg/dl range Dose/Route: Number of Units Instruction: using insulin pump Protocol Text: Custom Sliding Scale Rx Instructions: insulin pump sulfamethoxazole-trimethoprim [Bactrim DS] 800-160 mg tablet 1 tab PO MOWEFR Rx Instructions: 1 TAB orally MWF omeprazole 20 mg Tablet,Delayed Release (Dr/Ec) 20 mg PO DAILY Primary Care Provider: Mikayla Lopez Referrals: Mikayla Lopez MD [Primary Care Provider] - Francisco Anthony DO [Med Staff - Active Staff] - (As previously directed/scheduled) Disposition Disposition: Home, Self Care
[2022-07-04 18:50] LABS: Absolute Neutrophil Count 8.6 X10^3/uL (2.0-7.7); Basophil# 0.02 X10^3/uL; Basophil% 0.2 % (0-1); Eosinophil# 0.02 X10^3/uL; Eosinophils% 0.2 % (0-5); Hemoglobin 12.2 g/dL (13.0-16.5); Lymphocyte % 7.4 % (19-41); Mean Corp Hgb Conc 31.3 g/dL (32-36); Mean Corpuscular Hgb 27.2 pg (27.0-32.0); Mean Corpuscular Volume 86.9 fL (80-94); Mean Platelet Vol. 11.2 fl (6.2-12.0); Monocyte# 0.18 X10^3/uL; Monocyte% 1.9 % (0-10); NRBC Flagged by Analyzer 0 % (0-5); Neutrophil # 8.56 X10^3/uL (2.7-7.7); Neutrophil % 89.9 % (47-70); Platelet Count 178 K/mm3 (150-450); RBC Distribution Width CV 13.2 % (11.6-14.6); RBC Distribution Width SD 41.4 fl (35.1-43.9); Red Blood Count 4.49 M/mm3 (4.6-6.2); White Blood Count 9.5 K/mm3 (4.4-11.0)
[2022-07-04 19:05] LABS: Anion Gap 6 (5-15); BUN 29 mg/dL (7-18); BUN/Creat Ratio 32.9 RATIO (10-20); Calcium,Total 9.3 mg/dL (8.5-10.1); Chloride 101 mmol/L (98-107); Creatinine, Serum 0.88 mg/dL (0.70-1.30); EST Glomerular Filtration Rate 91 mL/min (>60); Est Glom Filt Rate - Afr Amer 110 mL/min (>60); Estimated Creatinine Clearance 84.38 ml/min; Glucose 109 mg/dL (74-106); Sodium Level 137 mmol/L (136-145)
--- NOTE | 2022-07-04 19:23 | ED.RN ---
verified with lab that potassium sample was accurate. jerson from lab rechecked tube and reported that it was a good sample and did not question hemolization. dr galeas made aware. serum potassium level = 5.0. did not administer potassium iv.
[2022-07-04 20:17] VITALS: BP 107/60; PULSE 96; RESP 16; O2SAT 97
== END 2022-07-04 20:18 | disposition home or self-care (01) ==
PROVIDERS: Emergency Provider Emergency Medicine; PCP Internal Medicine; Visit Provider Emergency Medicine
DX: E87.6 Hypokalemia (principal); E11.9 Type 2 diabetes mellitus without complications; Z79.4 Long term (current) use of insulin; Z96.41 Presence of insulin pump (external) (internal); Z87.891 Personal history of nicotine dependence
CPT/HCPCS: 80048; 85025; 99282; A4216

== ENCOUNTER 2022-07-27 12:54 | Emergency (ER) | payer OTHER, SELFPAY ==
[2022-07-27 12:55] VITALS: BP 115/69; PULSE 78; RESP 16; TEMP 37; O2SAT 96; BMI 28.7
--- NOTE | 2022-07-27 13:40 | EX.ED.DYSGE1 ---
HPI History of Present Illness Chief Complaint: Other, Pain/Inj Detail of Chief Complaint: Obstructed gastrostomy tube Informant: patient and spouse/S.O. Onset/Context/Timing Onset: Today Context: Sudden Onset Timing: Continuous Quality: has been crushing his medication and instilling through the gastrostom Location: Gastrostomy tube Current Severity: Severe Maximum Severity: Severe Worsened by: Pill fragments Relieved by: Nothing Associated Symptoms Associated Symptoms: Continuous expectoration of saliva due to esophageal obstruction secondary Narrative Narrative: Patient is 71-year-old male with esophageal cancer who had a gastrostomy tube placed. He receives care through the [facility]. He presents because his gastrostomy tube is occluded. has been putting his medication through. She states she is crushing them. He has no other complaints. Prior similar symptoms: No Recent Illness/Hospitalization: Yes [facility] Medical History Ambulates with cane Amputation finger Amputation of toe Anemia of chronic disease Atrial fibrillation Diabetes mellitus, type II Esophageal cancer Gastric reflux History of steroid therapy HLD (hyperlipidemia) Hypertension Hypertension Insulin dependent diabetes mellitus Wears dentures Wears glasses Wears hearing aid Home Medications aspirin 81 mg tablet,delayed release 81 mg PO DAILY heart heatlh 11/29/12 [History Last Taken 04/22/21] metoprolol tartrate 50 mg tablet 50 mg PO BID bp 11/29/12 [History Last Taken 04/25/21 08:00] niacin 250 mg tablet,extended release (Slo-Niacin) 500 mg PO DAILY b vitamin 11/29/12 [History Last Taken 05/18/15 09:00] rosuvastatin 20 mg tablet (Crestor) 20 mg PO QHS hld 11/29/12 [History Last Taken 05/17/15] famotidine 20 mg tablet 20 mg PO QHS GERD 05/11/15 [History Last Taken 05/17/15] mycophenolate mofetil 500 mg tablet (CellCept) 500 mg PO BID transplant kidney 05/11/15 [History Last Taken 04/25/21 08:00] prednisone 2.5 mg tablet 5 mg PO DAILY steriod 05/11/15 [History Last Taken 04/25/21 08:00] tacrolimus 1 mg capsule, immediate-release (Prograf) 1 mg PO BID anit rejection 05/11/15 [History Last Taken 05/18/15 09:00] cholecalciferol (vitamin D3) 25 mcg (1,000 unit) tablet (Vitamin D3) 2,000 unit PO DAILY vitamin 05/17/15 [History Last Taken 05/18/15] insulin aspart U-100 100 unit/mL (3 mL) subcutaneous pen (Novolog FlexPen U-100 Insulin aspart) See Protocol subcut CONT DM 02/06/18 [History Last Taken 02/06/18] sulfamethoxazole 800 mg-trimethoprim 160 mg tablet (Bactrim DS) 1 tab PO MOWEFR antireection 02/26/22 [History Last Taken Unknown] amlodipine 2.5 mg tablet 2.5 mg PO DAILY 04/03/22 [History Last Taken Unknown] omeprazole 20 mg tablet,delayed release 20 mg PO DAILY 05/21/22 [History Last Taken Unknown] Allergy/AdvReac Type Severity Reaction Status Date / Time No Known Allergies Allergy Verified 07/27/22 12:58 Family History Mother Kidney disease Hypertension High cholesterol Diabetes Father Kidney disease Hypertension High cholesterol Diabetes Surgical History Amputation of foot Hx of kidney transplant Hx of surgical amputation of finger Renal transplant recipient Social History household members: spouse, family and children Smoking Status: Former smoker how long ago did patient quit smoking: Quit~ 50 years prior smoked youth until quit 2 ppd. alcohol intake: former details: Drank heavily in youth, stopped ~ 50 years prior. substance use type: does not use what type of physical activity do you participate in: walking ROS ROS ED Constitutional Constitutional ED: Denies chills, fever(s), subjective, sweats or weight loss Eyes Eyes: Denies blurry vision, change in vision or diplopia ENT ENT ED: Denies ear pain or rhinorrhea Cardiovascular Cardiovascular: Denies chest pain or palpitations Respiratory/Chest Respiratory/Chest: Denies cough or dyspnea Gastrointestinal Gastrointestinal: Reports other Details: Unable to swallow secretion due to obstruction of esophagus secondary to malignant neoplasm of the esophagus. ; Denies abdominal pain, nausea or vomiting Hematologic/Lymphatic Hematologic/Lymphatic: Denies systems reviewed and no addt'l complaints, except as documented or easy bleeding Allergic/Immunologic Allergic/Immunologic ED: Denies mouth swelling, tongue swelling or urticaria EXAM Physical Exam Const Vital Signs: 07/27/22 12:55 07/27/22 14:10 Temperature 98.6 F Temperature Source Temporal Pulse Rate 78 Respiratory Rate 16 Respiratory Effort Normal Non-Labored Respiratory Pattern Normal Blood Pressure 115/69 Blood Pressure Mean 84 Pulse Ox 96 Oxygen Delivery Method Room Air Positive well nourished, well developed and obese Constitutional Narrative: Patient is expectorating his saliva into an emesis bag since he is unable to swallow. General Appearance ED: well developed, NAD and pallor; Negative for cyanotic or diaphoretic Nutritional Appearance: obese HEENT Reports moist mucous membranes HEENT Narrative: Head is atraumatic normocephalic. Ears normal. Nares patent. Mucosa is moist. Eyes PERRL and EOMs intact bilaterally General Eye ED: Yes pale conjunctiva; Negative for scleral icterus Neck no lymphadenopathy, supple and no JVD Resp normal respiratory effort Cardio regular rate and regular rhythm GI non-tender, non-distended and no masses; Negative for hepatosplenomegaly GI Narrative: Patient with gastrostomy tube noted. There is pill fragments noted in the tube. Neuro oriented x3 and CN's II-XII intact bilaterally Sensorium / Orientation: alert Psych mental status grossly normal Skin no rashes or lesions noted, no wounds and skin turgor normal General Skin Exam: pallor; Negative for jaundice MDM MDM MDM Narrative Medical decision making narrative: Nurse has been instructed to attempt different methods to alleviate the obstruction. Laboratory tests are not needed. Patient's records from outside facility were reviewed. History & Record Review Additional record(s) reviewed:: Prior outpatient record Treatment and Re-Evaluation :: The nurse was able to alleviate the obstruction using [employer]. Patient will be discharged home with appropriate home-going instructions Discharge Plan Triage Chief Complaint: Other, Pain/Inj ED Provider: Paniagua,Earl Dx/Rx/DC Orders Clinical Impression: Malfunction of percutaneous endoscopic gastrostomy (PEG) tube, Diabetic neuropathy associated with type 2 diabetes mellitus, Hypertension, Hx of esophageal malignancy Instructions: Tube Feeding Flush Dc Prescriptions: No Action amlodipine 2.5 mg tablet 2.5 mg PO DAILY aspirin 81 MG tablet 81 mg PO DAILY Label Comments: [facility] niacin [Slo-Niacin] 250 MG tablet extended release 500 mg PO DAILY Label Comments: SUPPLEMENT metoprolol tartrate 50 MG tablet 50 mg PO BID Label Comments: BLOOD PRESSURE rosuvastatin [Crestor] 20 MG tablet 20 mg PO QHS Label Comments: decrease cholesterol mycophenolate mofetil [CellCept] 500 MG tablet 500 mg PO BID Label Comments: ANTI-REJECTION MED prednisone 2.5 MG tablet 5 mg PO DAILY Label Comments: STEROID tacrolimus [Prograf] 1 MG capsule 1 mg PO BID Label Comments: KIDNEYS famotidine 20 MG tablet 20 mg PO QHS Label Comments: GERD cholecalciferol (vitamin D3) [Vitamin D3] 1,000 UNIT tablet 2,000 unit PO DAILY Label Comments: SUPPLEMENT insulin aspart U-100 [Novolog FlexPen U-100 Insulin] 100 UNITS/ML insulin pen See Protocol subcut CONT Protocol: 6. Sliding Scale Insulin Custom Condition: mg/dl range Dose/Route: Number of Units Instruction: using insulin pump Protocol Text: Custom Sliding Scale Rx Instructions: insulin pump sulfamethoxazole-trimethoprim [Bactrim DS] 800-160 mg tablet 1 tab PO MOWEFR Rx Instructions: 1 TAB orally MWF omeprazole 20 mg Tablet,Delayed Release (Dr/Ec) 20 mg PO DAILY Primary Care Provider: Mikayla Lopez Referrals: Mikayla Lopez MD [Primary Care Provider] - Disposition Disposition: Home, Self Care
--- NOTE | 2022-07-27 14:11 | ED.RN ---
Peg tube flushed with coke, After several flushes peg tube flowing well. giving pt enteral feed without difficulty.
== END 2022-07-27 15:27 | disposition home or self-care (01) ==
LOC: ED 14:35
PROVIDERS: Emergency Provider Emergency Medicine; PCP Internal Medicine; Visit Provider Emergency Medicine
DX: K94.23 Gastrostomy malfunction (principal); E11.40 Type 2 diabetes mellitus with diabetic neuropathy, unspecified; I10 Essential (primary) hypertension; E66.9 Obesity, unspecified; Z87.891 Personal history of nicotine dependence
CPT/HCPCS: 99282

== ENCOUNTER 2022-08-09 10:57 | Emergency (ER) | payer OTHER, SELFPAY ==
[2022-08-09 10:59] VITALS: BP 119/68; PULSE 82; RESP 14; TEMP 36.1; O2SAT 95
[2022-08-09 11:00] VITALS: BMI 29.0
--- NOTE | 2022-08-09 11:13 | EDS_ITS ---
HPI <ANNE Cummins - Last Filed: 08/09/22 20:28> History of Present Illness Chief Complaint: General Illness Narrative Narrative: Presenting today due to a clogged gastrostomy tube that he has placed due to esophageal cancer. It has been clogged for the last two hours. He had this placed through the [facility] and receives his care through them. He does not have any other complaints. PFS <ANNE Cummins - Last Filed: 08/09/22 20:28> [facility] Medical History Ambulates with cane Amputation finger Amputation of toe Anemia of chronic disease Atrial fibrillation Diabetes mellitus, type II Esophageal cancer Gastric reflux History of steroid therapy HLD (hyperlipidemia) Hypertension Hypertension Insulin dependent diabetes mellitus Wears dentures Wears glasses Wears hearing aid Home Medications aspirin 81 mg tablet,delayed release 81 mg PO DAILY heart heatlh 11/29/12 [History Last Taken 04/22/21] metoprolol tartrate 50 mg tablet 50 mg PO BID bp 11/29/12 [History Last Taken 04/25/21 08:00] niacin 250 mg tablet,extended release (Slo-Niacin) 500 mg PO DAILY b vitamin 11/29/12 [History Last Taken 05/18/15 09:00] rosuvastatin 20 mg tablet (Crestor) 20 mg PO QHS hld 11/29/12 [History Last Taken 05/17/15] famotidine 20 mg tablet 20 mg PO QHS GERD 05/11/15 [History Last Taken 05/17/15] mycophenolate mofetil 500 mg tablet (CellCept) 500 mg PO BID transplant kidney 05/11/15 [History Last Taken 04/25/21 08:00] prednisone 2.5 mg tablet 5 mg PO DAILY steriod 05/11/15 [History Last Taken 04/25/21 08:00] tacrolimus 1 mg capsule, immediate-release (Prograf) 1 mg PO BID anit rejection 05/11/15 [History Last Taken 05/18/15 09:00] cholecalciferol (vitamin D3) 25 mcg (1,000 unit) tablet (Vitamin D3) 2,000 unit PO DAILY vitamin 05/17/15 [History Last Taken 05/18/15] insulin aspart U-100 100 unit/mL (3 mL) subcutaneous pen (Novolog FlexPen U-100 Insulin aspart) See Protocol subcut CONT DM 02/06/18 [History Last Taken 02/06/18] sulfamethoxazole 800 mg-trimethoprim 160 mg tablet (Bactrim DS) 1 tab PO MOWEFR antireection 02/26/22 [History Last Taken Unknown] amlodipine 2.5 mg tablet 2.5 mg PO DAILY 04/03/22 [History Last Taken Unknown] omeprazole 20 mg tablet,delayed release 20 mg PO DAILY 05/21/22 [History Last Taken Unknown] Allergy/AdvReac Type Severity Reaction Status Date / Time No Known Allergies Allergy Verified 08/09/22 11:00 Family History Mother Kidney disease Hypertension High cholesterol Diabetes Father Kidney disease Hypertension High cholesterol Diabetes Surgical History Amputation of foot Hx of kidney transplant Hx of surgical amputation of finger Renal transplant recipient Social History household members: spouse, family and children Smoking Status: Former smoker how long ago did patient quit smoking: Quit~ 50 years prior smoked youth until quit 2 ppd. alcohol intake: former details: Drank heavily in youth, stopped ~ 50 years prior. substance use type: does not use what type of physical activity do you participate in: walking ROS <ANNE Cummins - Last Filed: 08/09/22 20:28> ROS ED Constitutional Constitutional ED: Denies chills or fever(s) Cardiovascular Cardiovascular: Denies chest pain Respiratory/Chest Respiratory/Chest: Denies cough or dyspnea Gastrointestinal Gastrointestinal: Denies abdominal pain, nausea or vomiting Musculoskeletal Musculoskeletal: Denies arthralgias or myalgias Integumentary Denies abscess, Abrasions or rash Neurologic Neurologic: Denies weakness EXAM <ANNE Cummins - Last Filed: 08/09/22 20:28> Physical Exam Const Vital Signs: 08/09/22 10:59 08/09/22 11:58 08/09/22 14:58 Temperature 97 F L Temperature Source Temporal Pulse Rate 82 80 Respiratory Rate 14 16 Respiratory Effort Normal Non-Labored Respiratory Pattern Normal Blood Pressure 119/68 118/79 Blood Pressure Mean 85 92 Pulse Ox 95 95 Oxygen Delivery Method Room Air Room Air 08/09/22 18:00 08/09/22 18:32 Temperature 98.1 F Temperature Source Pulse Rate 76 79 Respiratory Rate 18 16 Respiratory Effort Respiratory Pattern Blood Pressure 125/82 H 113/81 H Blood Pressure Mean 96 Pulse Ox 96 97 Oxygen Delivery Method Room Air Positive well nourished, well developed and no apparent distress General Appearance ED: well developed HEENT Reports normocephalic and head/scalp atraumatic Mouth ED: Yes moist mucous membranes normal Eyes PERRL and EOMs intact bilaterally Neck full ROM and supple Chest Wall inspection of chest normal Resp normal respiratory effort and clear to auscultation bilaterally Cardio regular rate and regular rhythm GI soft to palpation, non-tender, non-distended and no masses GI Narrative: Gastrostomy tube placed. Back/Spine normal ROM and normal to inspection Extremity normal to inspection and full ROM Neuro oriented x3, CN's II-XII intact bilaterally, moves all extremities, no focal motor deficits and no sensory deficits noted Sensorium / Orientation: awake and alert Psych mental status grossly normal and thought process normal Skin no rashes or lesions noted and no wounds <Dr. Nas Real MD - Last Filed: 08/09/22 18:18> Physical Exam Const Vital Signs: 08/09/22 10:59 08/09/22 11:58 08/09/22 14:58 Temperature 97 F L Temperature Source Temporal Pulse Rate 82 80 Respiratory Rate 14 16 Respiratory Effort Normal Non-Labored Respiratory Pattern Normal Blood Pressure 119/68 118/79 Blood Pressure Mean 85 92 Pulse Ox 95 95 Oxygen Delivery Method Room Air Room Air 08/09/22 18:00 08/09/22 18:32 Temperature 98.1 F Temperature Source Pulse Rate 76 79 Respiratory Rate 18 16 Respiratory Effort Respiratory Pattern Blood Pressure 125/82 H 113/81 H Blood Pressure Mean 96 Pulse Ox 96 97 Oxygen Delivery Method Room Air MDM <ANNE Cummins - Last Filed: 08/09/22 20:28> [facility] MDM Narrative Medical decision making narrative: Patient presenting due to a clogged gastrostomy tube. Attending physician did place a 16 [place] Sawant catheter, KUB shows proper placement of the Sawant and stomach. He will be following up outpatient to have a feeding tube put back in place. He has been given return instructions and will be discharged home in stable condition. He is comfortable with plan. I have personally performed a face to face assessment of the patient and have reviewed the CHERYL Note. I performed a substantive portion of the visit including all aspects of the following. My campbell findings include: History is 71-year-old male history of esophageal cancer which has been treated with radiation and chemotherapy. Has a feeding tube for the last 2 months placed sometime in April due to swallowing difficulties. It was clogged 2 weeks ago was seen in the emergency department and had an unclogged. States that is not working again. If possible he and his would like it changed. He denies any other complaints. Exam is [well-appearing 71-year-old male. Vital signs are stable afebrile. HEENT exam unremarkable. Lungs clear. Heart regular rhythm. Abdomen soft, nontender, nondistended normal bowel sounds without peritoneal signs. Moving all 4 extremities. He does have a feeding tube left upper quadrant. It is currently clogged.] Medical Decison Making [unclog the feeding tube versus changing it.] Other additions or changes: [Nurses tried irrigation or unable to unclog the feeding tube. We did not have a brush available to help try to unclog it. Discussed with the patient and his . I was able to remove the tube without any difficulty but I could not fit a 20 [place] feeding tube in place. Therefore I used a 16 [place] Sawant catheter. It advanced without any difficulty. Patient tolerated it well. KUB with Gastrografin showed the Sawant in his s tomach. He will do outpatient follow-up to get a feeding tube put back in that site.] Radiography X-Ray: Read by ED Physician and Read by Radiologist Diagnostic Testing: Clinical Impression(s) from Imaging Studies KUB X-Ray 08/09/22 18:00 IMPRESSION: There is a PEG tube in place. Contrast inject through the PEG tube demonstrates oral contrast within the lumen of the stomach. This confirms PEG placement. Electronically Signed: Sheldon Carter MD at 18:18 EDT , <Dr. Nas Real MD - Last Filed: 08/09/22 18:18> [facility] MDM Narrative Medical decision making narrative: Patient presenting due to a clogged gastrostomy tube I have personally performed a face to face assessment of the patient and have reviewed the CHERYL Note. I performed a substantive portion of the visit including all aspects of the following. My campbell findings include: History is 71-year-old male history of esophageal cancer which has been treated with radiation and chemotherapy. Has a feeding tube for the last 2 months placed sometime in April due to swallowing difficulties. It was clogged 2 weeks ago was seen in the emergency department and had an unclogged. States that is not working again. If possible he and his would like it changed. He denies any other complaints. Exam is [well-appearing 71-year-old male. Vital signs are stable afebrile. HEENT exam unremarkable. Lungs clear. Heart regular rhythm. Abdomen soft, nontender, nondistended normal bowel sounds without peritoneal signs. Moving all 4 extremities. He does have a feeding tube left upper quadrant. It is currently clogged.] Medical Decison Making [unclog the feeding tube versus changing it.] Other additions or changes: [Nurses tried irrigation or unable to unclog the feeding tube. We did not have a brush available to help try to unclog it. Discussed with the patient and his . I was able to remove the tube without any difficulty but I could not fit a 20 [place] feeding tube in place. Therefore I used a 16 [place] Sawant catheter. It advanced without any difficulty. Patient tolerated it well. KUB with Gastrografin showed the Sawant in his stomach. He will do outpatient follow-up to get a feeding tube put back in that site.] Radiography Diagnostic Testing: Clinical Impression(s) from Imaging Studies KUB X-Ray 08/09/22 18:00 IMPRESSION: There is a PEG tube in place. Contrast inject through the PEG tube demonstrates oral contrast within the lumen of the stomach. This confirms PEG placement. Electronically Signed: Sheldon Carter MD at 18:18 EDT , KUB with Gastrografin x1 view was obtained after I placed a 16 [place] Sawant catheter in his ostomy. It is in the stomach. The Gastrografin was contained within the stomach. Discussed with the patient and his . I will be discharged home. Outpatient follow-up to have a feeding tube placed. Discharge Plan Triage Chief Complaint: General Illness ED Midlevel Provider: Carolina Rodas ED Provider: Nas Real Dx/Rx/DC Orders Clinical Impression: Gastrostomy tube dysfunction Instructions: Gastrostomy Feeding Tube Care ... Prescriptions: No Action amlodipine 2.5 mg tablet 2.5 mg PO DAILY aspirin 81 MG tablet 81 mg PO DAILY Label Comments: [facility] niacin [Slo-Niacin] 250 MG tablet extended release 500 mg PO DAILY Label Comments: SUPPLEMENT metoprolol tartrate 50 MG tablet 50 mg PO BID Label Comments: BLOOD PRESSURE rosuvastatin [Crestor] 20 MG tablet 20 mg PO QHS Label Comments: decrease cholesterol mycophenolate mofetil [CellCept] 500 MG tablet 500 mg PO BID Label Comments: ANTI-REJECTION MED prednisone 2.5 MG tablet 5 mg PO DAILY Label Comments: STEROID tacrolimus [Prograf] 1 MG capsule 1 mg PO BID Label Comments: [facility] famotidine 20 MG tablet 20 mg PO QHS Label Comments: GERD cholecalciferol (vitamin D3) [Vitamin D3] 1,000 UNIT tablet 2,000 unit PO DAILY Label Comments: SUPPLEMENT insulin aspart U-100 [Novolog FlexPen U-100 Insulin] 100 UNITS/ML insulin pen See Protocol subcut CONT Protocol: 6. Sliding Scale Insulin Custom Condition: mg/dl range Dose/Route: Number of Units Instruction: using insulin pump Protocol Text: Custom Sliding Scale Rx Instructions: insulin pump sulfamethoxazole-trimethoprim [Bactrim DS] 800-160 mg tablet 1 tab PO MOWEFR Rx Instructions: 1 TAB orally MWF omeprazole 20 mg Tablet,Delayed Release (Dr/Ec) 20 mg PO DAILY Primary Care Provider: Mikayla Lopez Referrals: Mikayla Lopez MD [Primary Care Provider] - 3-5 Days Activity Restrictions/Additional Instructions: Please follow-up to have the gastrostomy tube replaced. Return for any worsening symptoms. Disposition Disposition: Home, Self Care Discharge Date/Time: 08/09/22 18:34
--- NOTE | 2022-08-09 13:14 | NURSING ---
no old ekgs
--- NOTE | 2022-08-09 14:56 | ED.RN ---
08/09/22@1455- MULTIPLE ATTEMPTS TO UNCLOG PEG ATTEMPTED BY TWO RNS. DR. SHEPARD NOTIFIED.
[2022-08-09 14:58] VITALS: BP 118/79; PULSE 80; RESP 16; O2SAT 95
[2022-08-09 18:00] VITALS: BP 125/82; PULSE 76; RESP 18; O2SAT 96
--- NOTE | 2022-08-09 18:00 | RAD_ITS ---
EXAM: XR ABDOMEN, 1 VIEW CLINICAL INDICATION: feeding tube placement w/ gastrograffin TECHNIQUE: Frontal supine view of the abdomen/pelvis. COMPARISON: No relevant prior studies available. FINDINGS: LOWER THORAX: No acute pathology. GASTROINTESTINAL TRACT: Unremarkable. Non-obstructive. No bowel or stomach distention. ORGANS: Unremarkable as visualized. No organomegaly. No abnormal calcifications. BONES/JOINTS: No acute pathology. SOFT TISSUES: No acute pathology. TUBES, LINES AND DEVICES: There is a PEG tube in place. Contrast inject through the PEG tube demonstrates oral contrast within the lumen of the stomach. This confirms PEG placement. RAD/Abdomen Single View IMPRESSION: There is a PEG tube in place. Contrast inject through the PEG tube demonstrates oral contrast within the lumen of the stomach. This confirms PEG placement. Electronically Signed: Sheldon Carter MD at 18:18 EDT ,
[2022-08-09 18:32] VITALS: BP 113/81; PULSE 79; RESP 16; TEMP 36.7; O2SAT 97
== END 2022-08-09 18:34 | disposition home or self-care (01) ==
PROVIDERS: Emergency Provider Emergency Medicine; PCP Internal Medicine; Visit Provider Emergency Medicine
DX: K94.23 Gastrostomy malfunction (principal); I48.91 Unspecified atrial fibrillation; E11.9 Type 2 diabetes mellitus without complications; Z79.4 Long term (current) use of insulin; E78.5 Hyperlipidemia, unspecified; I10 Essential (primary) hypertension; Z87.891 Personal history of nicotine dependence; Z79.82 Long term (current) use of aspirin; Z79.899 Other long term (current) drug therapy
CPT/HCPCS: 74018; 99282

== ENCOUNTER 2022-10-15 19:47 | Observation (INO) | payer OTHER, SELFPAY ==
[2022-10-15 19:48] VITALS: BP 168/88; PULSE 83; RESP 16; TEMP 36.2; O2SAT 97; BMI 27.8
--- NOTE | 2022-10-15 20:23 | EX.ED.DYSGE1 ---
HPI History of Present Illness Chief Complaint: Nausea/Vomiting Informant: patient, family and other (Gabrielle) Narrative Narrative: Brought in by family I spoke with his oncologist Dr. Anthony prior to his arrival. Squamous cell esophageal cancer diagnosed 2 months ago status post chemoradiation 2 months ago increasing size surgery is not an option. He started on FOLFOX infusion 2 weeks ago it is a 40-hour infusion. States day 3 developed nausea and dry heaving at that time. Started infusion again yesterday pretreatment with antiemetics, family reports same symptoms started 4 PM. Oncology 1 continue infusion. He was sent in for symptom control with IV fluids. Patient does have a PEG tube. Denies fevers. Denies urinary symptoms. History of renal transplant 3 to 4 years ago. History of diabetes. He is followed by [facility] transplant service. Prior similar symptoms: Yes PFSH [facility] Medical History Ambulates with cane Amputation finger Amputation of toe Anemia of chronic disease Atrial fibrillation Diabetes mellitus, type II Esophageal cancer Gastric reflux History of steroid therapy HLD (hyperlipidemia) Hypertension Hypertension Insulin dependent diabetes mellitus Wears dentures Wears glasses Wears hearing aid Home Medications aspirin 81 mg tablet,delayed release 81 mg PO DAILY heart heatlh 11/29/12 [History Last Taken 04/22/21] metoprolol tartrate 50 mg tablet 50 mg PO BID bp 11/29/12 [History Last Taken 04/25/21 08:00] niacin 250 mg tablet,extended release (Slo-Niacin) 500 mg PO DAILY b vitamin 11/29/12 [History Last Taken 05/18/15 09:00] rosuvastatin 20 mg tablet (Crestor) 20 mg PO QHS hld 11/29/12 [History Last Taken 05/17/15] famotidine 20 mg tablet 20 mg PO QHS GERD 05/11/15 [History Last Taken 05/17/15] mycophenolate mofetil 500 mg tablet (CellCept) 500 mg PO BID transplant kidney 05/11/15 [History Last Taken 04/25/21 08:00] prednisone 2.5 mg tablet 5 mg PO DAILY steriod 05/11/15 [History Last Taken 04/25/21 08:00] tacrolimus 1 mg capsule, immediate-release (Prograf) 1 mg PO BID anit rejection 05/11/15 [History Last Taken 05/18/15 09:00] cholecalciferol (vitamin D3) 25 mcg (1,000 unit) tablet (Vitamin D3) 2,000 unit PO DAILY vitamin 05/17/15 [History Last Taken 05/18/15] insulin aspart U-100 100 unit/mL (3 mL) subcutaneous pen (Novolog FlexPen U-100 Insulin aspart) See Protocol subcut CONT DM 02/06/18 [History Last Taken 02/06/18] sulfamethoxazole 800 mg-trimethoprim 160 mg tablet (Bactrim DS) 1 tab PO MOWEFR antireection 02/26/22 [History Last Taken Unknown] amlodipine 2.5 mg tablet 2.5 mg PO DAILY 04/03/22 [History Last Taken Unknown] omeprazole 20 mg tablet,delayed release 20 mg PO DAILY 05/21/22 [History Last Taken Unknown] Allergy/AdvReac Type Severity Reaction Status Date / Time No Known Allergies Allergy Verified 10/15/22 19:48 Family History Mother Kidney disease Hypertension High cholesterol Diabetes Father Kidney disease Hypertension High cholesterol Diabetes Surgical History Amputation of foot Hx of kidney transplant Hx of surgical amputation of finger Renal transplant recipient Social History household members: spouse, family and children Smoking Status: Former smoker how long ago did patient quit smoking: Quit~ 50 years prior smoked youth until quit 2 ppd. alcohol intake: former details: Drank heavily in youth, stopped ~ 50 years prior. substance use type: does not use what type of physical activity do you participate in: walking ROS ROS ED Constitutional Constitutional ED: Denies chills, fever(s) or sweats Eyes Eyes: Denies change in vision ENT ENT ED: Denies dysphagia or sore throat Cardiovascular Cardiovascular: Denies chest pain, leg edema, palpitations or racing heartbeat Respiratory/Chest Respiratory/Chest: Denies cough, dyspnea or dyspnea on exertion Gastrointestinal Gastrointestinal: Reports nausea and vomiting; Denies abdominal pain or diarrhea Genitourinary Genitourinary ED: Denies dysuria, hematuria or urinary frequency Musculoskeletal Musculoskeletal: Denies back pain, extremity pain or neck pain Integumentary Denies rash or wounds Neurologic Neurologic: Denies headache(s), paresthesias or weakness EXAM Physical Exam Const Vital Signs: 10/15/22 19:48 10/15/22 22:51 Temperature 97.1 F L Temperature Source Temporal Pulse Rate 83 77 Respiratory Rate 16 16 Blood Pressure 168/88 H 127/59 H Blood Pressure Mean 114 81 Pulse Ox 97 95 Oxygen Delivery Method Room Air Positive well nourished and well developed Constitutional Narrative: Occasional dry heaving General Appearance ED: well developed HEENT Reports moist mucous membranes normocephalic and atraumatic Eyes PERRL, EOMs intact bilaterally and conjunctivae normal General Eye ED: Yes normal appearance of both eyes Neck no lymphadenopathy and supple General: Negative for tenderness Chest Wall Chest: Negative for tenderness Resp normal respiratory effort and normal air movement Effort and Inspection: symmetric chest movement; Negative for respiratory distress Cardio regular rate, regular rhythm and no murmurs Peripheral Pulses: pulses 2+ throughout GI normal to inspection, nondistended, normoactive bowel sounds and non-tender GI Narrative: PEG tube clean, dry, intact. Palpation: Negative for guarding or rebound tenderness present Back/Spine no CVA tenderness and no thoracic nor lumbar tenderness Extremity normal to inspection General Extremety ED: Negative for edema or tenderness General Extremity: Negative for edema Neuro oriented x3 and no sensory deficits noted Sensorium / Orientation: awake and alert Skin no rashes or lesions noted and no wounds MDM MDM MDM Narrative Medical decision making narrative: Interventions / MDM: Differential diagnosis: Chemo-induced nausea and vomiting, history of esophageal cancer, renal transplant patient Diagnosis considered but do not suspect: Electrolyte abnormalities however labs are stable My EKG interpretation: N/A Imaging independently reviewed and interpreted by myself: N/A External documents reviewed: N/A Test considered but not ordered:N/A ED course: Patient dry heaving, history of similar. IV established 2 L of fluid ordered. Abdominal labs were ordered. IV Reglan. Abdominal labs with creatinine 1.02. Glucose 295 however normal anion gap. Sodium 130. Reevaluation improving initially however nausea returned. IV Zofran ordered. 2320: Reevaluation after additional IV Zofran with improving symptoms resting. From discussion with Dr. Anthony prior arrival, he will be seen in the office tomorrow for reevaluation continue treatment as needed. They have Zofran at home. Return precautions. All questions were answered. 2350: Prior to leaving department, right hearing return. IV reestablished, fluids continue additional IV Reglan. I spoke with hospitalist Dr. Ruiz for admission due to intractable nausea and vomiting. Re-evaluation: stable Disposition discussed with patient/family/significant other: Patient and family Case discussed with consulting clinician: Oncology, Dr. Anthony, hospitalist This note was generated with tarpipe dictation software. It may contain incorrect words, spelling, and punctuation that were not noted in checking the note before signing. Lab Data Attestation: I reviewed the patient's lab results. Labs: Laboratory Results - last 24 hr 10/15/22 20:20 WBC 5.4 RBC 3.98 L Hgb 10.9 L Hct 33.4 L MCV 83.9 MCH 27.4 MCHC 32.6 RDW Std Deviation 46.4 H RDW Coeff of Ayaka 15.3 H Plt Count 173 MPV 10.1 Immature Gran % (Auto) 0.400 Neut % (Auto) 84.2 H Lymph % (Auto) 5.6 L [place] % (Auto) 9.8 Eos % (Auto) 0.0 Baso % (Auto) 0.0 Absolute Neuts (auto) 4.5 Absolute Lymphs (auto) 0.30 L Nucleated RBC % 0 Differential Comment SCANNED Sodium 130 L Potassium 5.2 H Chloride 97 L Carbon Dioxide 27.0 Anion Gap 6 BUN 27 H Creatinine 1.02 Estim Creat Clear Calc 69.58 Est GFR (MDRD) Af Amer 93 Est GFR (MDRD) Non-Af 77 BUN/Creatinine Ratio 26.5 H Glucose 295 H Calcium 8.9 Total Bilirubin 0.60 AST 26 ALT 20 Alkaline Phosphatase 63 Total Protein 6.5 Albumin 2.5 L Globulin 4.0 Albumin/Globulin Ratio 0.6 L Lipase 10 L Discharge Plan Triage Chief Complaint: Nausea/Vomiting ED Provider: Aris Galloway Dx/Rx/DC Orders Clinical Impression: Esophageal cancer, Chemotherapy adverse reaction, Nausea & vomiting, Hyperglycemia due to diabetes mellitus, Hyponatremia, Renal transplant recipient Primary Care Provider: Mikayla Lopez Disposition Disposition: Home, Self Care
[2022-10-15] MEDS: Metoclopramide 10 MG/2 ML Vial 5 MG IV (20:27)
[2022-10-15 20:44] LABS: Absolute Neutrophil Count 4.5 X10^3/uL (2.0-7.7); Hematocrit 33.4 % (40-54); Hemoglobin 10.9 g/dL (13.0-16.5); Lymphocyte % 5.6 % (19-41); Mean Corp Hgb Conc 32.6 g/dL (32-36); Mean Corpuscular Hgb 27.4 pg (27.0-32.0); Mean Corpuscular Volume 83.9 fL (80-94); Mean Platelet Vol. 10.1 fl (6.2-12.0); Monocyte# 0.53 X10^3/uL; Monocyte% 9.8 % (0-10); NRBC Flagged by Analyzer 0 % (0-5); Neutrophil # 4.54 X10^3/uL (2.7-7.7); Neutrophil % 84.2 % (47-70); POSITIVE DIFFERENTIAL YES; Platelet Count 173 K/mm3 (150-450); RBC Distribution Width CV 15.3 % (11.6-14.6); RBC Distribution Width SD 46.4 fl (35.1-43.9); Red Blood Count 3.98 M/mm3 (4.6-6.2); White Blood Count 5.4 K/mm3 (4.4-11.0)
[2022-10-15] MEDS: 0.9% Normal Saline 1,000 ML 1000 ML IV ×2 (20:48→21:24)
[2022-10-15 20:52] LABS: Differential Indicated SCAN CRITERIA MET
[2022-10-15 21:07] LABS: ALB/GLOB Ratio 0.6 RATIO (0.9-2.4); AST(SGOT) 26 U/L (15-37); Alanine Aminotransfer ALT/SGPT 20 U/L (16-61); Albumin, Serum 2.5 g/dL (3.2-5.0); Alkaline Phosphatase 63 U/L (45-117); Anion Gap 6 (5-15); BUN 27 mg/dL (7-18); BUN/Creat Ratio 26.5 RATIO (10-20); Calcium,Total 8.9 mg/dL (8.5-10.1); Chloride 97 mmol/L (98-107); Creatinine, Serum 1.02 mg/dL (0.70-1.30); EST Glomerular Filtration Rate 77 mL/min (>60); Est Glom Filt Rate - Afr Amer 93 mL/min (>60); Estimated Creatinine Clearance 69.58 ml/min; Glucose 295 mg/dL (74-106); Lipase 10 U/L (13-75); Potassium 5.2 mmol/L (3.5-5.1); Protein, Total 6.5 g/dL (6.4-8.2); Sodium Level 130 mmol/L (136-145)
[2022-10-15 21:42] LABS: Differential Comment SCANNED
[2022-10-15] MEDS: Ondansetron 4 MG/2 ML Vial IV (22:50)
[2022-10-15 22:51] VITALS: BP 127/59; PULSE 77; RESP 16; O2SAT 95
[2022-10-16] VITALS (7 sets, daily range): BP systolic 127–179; BP diastolic 70–94; PULSE 67–102; RESP 18–20; TEMP 36.3–36.7; O2SAT 94–97; BMI 29.6
[2022-10-16] MEDS: Metoclopramide 10 MG/2 ML Vial 5 MG IV ×3 (00:01→11:54)
[2022-10-16] MEDS: 0.9% Normal Saline 1,000 ML 100 ML IV (00:02)
--- NOTE | 2022-10-16 00:18 | PCM.HP.STD ---
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 At time he has some small phlegm from vomiting. Of note patient esophageal cancer is considered too big for surgical intervention. He was started on chemotherapy infusion about 2 weeks ago. His regimen is FOLFOX. The first infusion was started 2 weeks ago. His infusion is supposed to last 46 to 48 hours per session. His infusion 2 weeks ago was turned of when it was left about 5 hours to complete. The infusion was turned off because of patient's symptoms of nausea and dry heaving. On the day before presentation patient started the second dose of his infusion. During the course of the infusion patient developed nausea, and dry heaving as above. Patient was sent to the emergency department by his oncologist, Dr. Anthony. At the emergency department multiple dose of antiemetics were given and patient was given IV fluids. Patient continued to have nausea and dry heaving so decision was made for patient to be observed at the hospital. [facility] Medical History Ambulates with cane Amputation finger Amputation of toe Anemia of chronic disease Atrial fibrillation Diabetes mellitus, type II Esophageal cancer Gastric reflux History of steroid therapy HLD (hyperlipidemia) Hypertension Hypertension Insulin dependent diabetes mellitus Wears dentures Wears glasses Wears hearing aid Home Medications aspirin 81 mg tablet,delayed release 81 mg PO DAILY heart heatlh 11/29/12 [History Last Taken 04/22/21] metoprolol tartrate 50 mg tablet 50 mg PO BID bp 11/29/12 [History Last Taken 04/25/21 08:00] niacin 250 mg tablet,extended release (Slo-Niacin) 500 mg PO DAILY b vitamin 11/29/12 [History Last Taken 05/18/15 09:00] rosuvastatin 20 mg tablet (Crestor) 20 mg PO QHS hld 11/29/12 [History Last Taken 05/17/15] famotidine 20 mg tablet 20 mg PO QHS GERD 05/11/15 [History Last Taken 05/17/15] mycophenolate mofetil 500 mg tablet (CellCept) 500 mg PO BID transplant kidney 05/11/15 [History Last Taken 04/25/21 08:00] prednisone 2.5 mg tablet 5 mg PO DAILY steriod 05/11/15 [History Last Taken 04/25/21 08:00] tacrolimus 1 mg capsule, immediate-release (Prograf) 1 mg PO BID anit rejection 05/11/15 [History Last Taken 05/18/15 09:00] cholecalciferol (vitamin D3) 25 mcg (1,000 unit) tablet (Vitamin D3) 2,000 unit PO DAILY vitamin 05/17/15 [History Last Taken 05/18/15] insulin aspart U-100 100 unit/mL (3 mL) subcutaneous pen (Novolog FlexPen U-100 Insulin aspart) See Protocol subcut CONT DM 02/06/18 [History Last Taken 02/06/18] sulfamethoxazole 800 mg-trimethoprim 160 mg tablet (Bactrim DS) 1 tab PO MOWEFR antireection 02/26/22 [History Last Taken Unknown] amlodipine 2.5 mg tablet 2.5 mg PO DAILY 04/03/22 [History Last Taken Unknown] omeprazole 20 mg tablet,delayed release 20 mg PO DAILY 05/21/22 [History Last Taken Unknown] hydrocodone bitartrate 15 mg capsule, oral only, extended rel 12 hr 15 mg PO Q8 10/16/22 [History Last Taken Unknown] lactose-reduced food with fiber 0.06 gram-1.5 kcal/mL oral liquid (Jevity 1.5 Victorino) 237 ml feeding tube .COMPLEX 10/16/22 [History Last Taken Unknown] Allergy/AdvReac Type Severity Reaction Status Date / Time diphenhydramine AdvReac Mild jittery/ Verified 10/16/22 01:16 [From Benadryl] anxious Family History Mother Kidney disease Hypertension High cholesterol Diabetes Father Kidney disease Hypertension High cholesterol Diabetes Surgical History Amputation of foot Hx of kidney transplant Hx of surgical amputation of finger Renal transplant recipient Social History household members: spouse, family and children Smoking Status: Former smoker how long ago did patient quit smoking: Quit~ 50 years prior smoked youth until quit 2 ppd. alcohol intake: former details: Drank heavily in youth, stopped ~ 50 years prior. substance use type: does not use what type of physical activity do you participate in: walking ROS ROS Narrative Pertinent positives and pertinent negatives as noted in HPI. All other systems were reviewed and are negative Vital Signs Vital Signs Vital Signs: 10/15/22 19:48 10/15/22 22:51 10/16/22 00:03 Temperature 97.1 F L 97.3 F L Temperature Source Temporal Temporal Pulse Rate 83 77 84 Respiratory Rate 16 16 18 Blood Pressure 168/88 H 127/59 H 170/92 H Blood Pressure Mean 114 81 118 Pulse Ox 97 95 97 Oxygen Delivery Method Room Air Room Air Weight Weight: 87.997 kg Body Mass Index (BMI) 27.8 Physical Exam Narrative Physical exam: General: Patient in ED bed retching multiple times. Head: Normocephalic, atraumatic, no tenderness Eyes: Vision is grossly intact. EOMI ENT, no trauma, moist mucous membranes, no rhinorrhea Neck: Nontender, No thyromegaly. CVS: Regular rate and rhythm. S1-S2 present. No murmur, gallop or rub. Respiratory : clear to auscultation bilaterally, chest wall nontender Abdomen: PEG tube in place. Soft, nontender, nondistended, normal bowel sounds, no masses : Deferred Back: Nontender, no CVA tenderness, no midline spinal tenderness, deformities, step-offs Extremities: Nontender full range of motion, no trauma Skin: Normal color, no trauma, abrasions Neuro: Alert, oriented, cranial nerves II through XII grossly intact. Psychiatry: Normal mood. Normal affect. Not depressed. Not anxious. Results Lab / Micro Data 10/15/22 20:20 10/15/22 20:20 Labs: Laboratory Results - last 24 hr 10/15/22 20:20: WBC 5.4, RBC 3.98 L, Hgb 10.9 L, Hct 33.4 L, MCV 83.9, MCH 27.4, MCHC 32.6, RDW Std Deviation 46.4 H, RDW Coeff of Ayaka 15.3 H, Plt Count 173, MPV 10.1, Immature Gran % (Auto) 0.400, Neut % (Auto) 84.2 H, Lymph % (Auto) 5.6 L, [place] % (Auto) 9.8, Eos % (Auto) 0.0, Baso % (Auto) 0.0, Absolute Neuts (auto) 4.5, Absolute Lymphs (auto) 0.30 L, Nucleated RBC % 0, Differential Comment SCANNED, Sodium 130 L, Potassium 5.2 H, Chloride 97 L, Carbon Dioxide 27.0, Anion Gap 6, BUN 27 H, Creatinine 1.02, Estim Creat Clear Calc 69.58, Est GFR (MDRD) Af Amer 93, Est GFR (MDRD) Non-Af 77, BUN/Creatinine Ratio 26.5 H, Glucose 295 H, Calcium 8.9, Total Bilirubin 0.60, AST 26, ALT 20, Alkaline Phosphatase 63, Total Protein 6.5, Albumin 2.5 L, Globulin 4.0, Albumin/Globulin Ratio 0.6 L, Lipase 10 L Assessment & Plan Assessment/Plan (1) Nausea & vomiting: QUALIFIERS: Vomiting type: unspecified Qualified Code(s): R11.2 - Nausea with vomiting, unspecified (2) Hyperglycemia due to diabetes mellitus: (3) Chemotherapy adverse reaction: QUALIFIERS: Encounter type: subsequent encounter Qualified Code(s): T45.1X5D - Adverse effect of antineoplastic and immunosuppressive drugs, subsequent encounter (4) Esophageal cancer: QUALIFIERS: Malignant neoplasm of esophagus location: lower third Qualified Code(s): C15.5 - Malignant neoplasm of lower third of esophagus (5) Renal transplant recipient: PLAN: Plan Intractable nausea and vomiting/chemotherapy adverse reaction Supportive treatment with IV fluids, as needed Zofran, as needed reglan; and as needed Compazine ordered. Chemotherapy regimen continued. Oncology consult. Hyperglycemia due to diabetes mellitus Accu-Chek QA CHS ordered. Home insulin pump continued. Patient and to manage home insulin pump. Esophageal cancer Persistent Renal transplant patient Stable Home immunosuppressive medication and Bactrim continued. History of A-fib Stable Home Eliquis continued Feeding: Home Jevity 1.5 237 mL 5 times a day continued DVT prophylaxis: Not indicated as patient's home Eliquis has been continued. Time spent in the patient's overall evaluation,decision-making process, review of diagnostic data, adjustment of management, discussion with other providers, nursing nursing and ancillary staff involved in patient's care documentation, 60 minutes. Charges/Coding Visit Charges Inpatient E&M: 83429 Init Hosp L3
[2022-10-16] MEDS: 0.9% Normal Saline 1,000 ML 75 ML IV ×2 (01:25→11:30)
[2022-10-16] MEDS: Ondansetron 4 MG/2 ML Vial 8 MG IV ×2 (01:36→07:49)
[2022-10-16] MEDS: Jevity 1.5. 1,000 ML Bottle 237 ML GT ×7 (03:01→23:36)
[2022-10-16 03:09] LABS: Bedside Glucose 140 mg/dL (74-106)
[2022-10-16] MEDS: proCHLORPERazine 10 MG/2 ML Vial 5 MG IV (06:22)
[2022-10-16 06:47] LABS: Bedside Glucose 141 mg/dL (74-106)
[2022-10-16] MEDS: predniSONE 5 MG Tablet GT (07:48)
[2022-10-16] MEDS: Aspirin 81 MG TAB.CHEW GT (07:48)
--- NOTE | 2022-10-16 09:45 | PCM.PN.HOSP ---
Reason for Visit Reason for Visit: Diagnoses Malignant neoplasm of lower third of esophagus (10/15/22) Type 2 diabetes mellitus with hyperglycemia (10/15/22) Nausea with vomiting, unspecified (10/15/22) Adverse effect of antineoplastic and immunosuppressive drugs, subsequent encounter (10/15/22) Kidney transplant status (10/15/22) Objective Data Objective Data Vital Signs: Vital Signs Temp Pulse Resp BP Pulse Ox O2 Del Method O2 Flow Rate 98.0 F 67 18 179/85 H 94 Nasal Cannula 2 10/16/22 08:00 10/16/22 08:00 10/16/22 08:00 10/16/22 08:00 10/16/22 08:00 10/16/22 08:24 10/16/22 08:24 Oxygen Flow Rate (L/min) 2 Oxygen Delivery Method Nasal Cannula Weight: 206 lb 6.4 oz Body Mass Index (BMI) 29.6 Intake & Output: Intake and Output for Last 24 Hours 10/14/22 10/15/22 10/16/22 23:59 23:59 23:59 Intake Total 1600 / 1600 500 / 500 Output Total 300 / 300 Balance 1600 / 1600 200 / 200 Lab / Micro Data 10/15/22 20:20 10/15/22 20:20 Labs: Laboratory Results - last 24 hr 10/15/22 20:20: WBC 5.4, RBC 3.98 L, Hgb 10.9 L, Hct 33.4 L, MCV 83.9, MCH 27.4, MCHC 32.6, RDW Std Deviation 46.4 H, RDW Coeff of Ayaka 15.3 H, Plt Count 173, MPV 10.1, Immature Gran % (Auto) 0.400, Neut % (Auto) 84.2 H, Lymph % (Auto) 5.6 L, [place] % (Auto) 9.8, Eos % (Auto) 0.0, Baso % (Auto) 0.0, Absolute Neuts (auto) 4.5, Absolute Lymphs (auto) 0.30 L, Nucleated RBC % 0, Differential Comment SCANNED, Sodium 130 L, Potassium 5.2 H, Chloride 97 L, Carbon Dioxide 27.0, Anion Gap 6, BUN 27 H, Creatinine 1.02, Estim Creat Clear Calc 69.58, Est GFR (MDRD) Af Amer 93, Est GFR (MDRD) Non-Af 77, BUN/Creatinine Ratio 26.5 H, Glucose 295 H, Calcium 8.9, Total Bilirubin 0.60, AST 26, ALT 20, Alkaline Phosphatase 63, Total Protein 6.5, Albumin 2.5 L, Globulin 4.0, Albumin/Globulin Ratio 0.6 L, Lipase 10 L 10/16/22 02:50: POC Glucose 140 H 10/16/22 06:25: POC Glucose 141 H Physical Exam Narrative Seen and examined. Patient shortness of breath is better. Currently on 2 L of oxygen. Mild dyspnea on exertion Physical exam General: Alert, Oriented x3, Cooperative HEENT: Atraumatic, PERRLA, EOMI, Normocephalic Oral: Oral mucosa dry. No Gingival or Mucosal Lesions/ Ulcerations Neck: Supple, No JVD, Negative Carotid Bruits Lungs: Air entry diminished in bilateral lung bases. Mild crepitation. Cardiovascular: Regular rate, Regular Rhythm, Normal S1, Normal S2, No murmurs Abdomen: Bowel Sounds Present, Soft, Non Tender, Non-Distended : No renal angle tenderness. No suprapubic tenderness. Extremities: No edema, Capillary Refill Less than 3 Seconds Skin: No rashes, No breakdown Musculoskeletal: No Tenderness to Palpation of Joints or Extremities. ROM full. Neurological: Cranial nerves II-XII grossly intact, DTR 2+/4. No acute focal neurological deficit. Psych/Mental Status: Normal Affect, Appropriate. Assessment & Plan Assessment/Plan (1) Nausea & vomiting: QUALIFIERS: Vomiting type: unspecified Qualified Code(s): R11.2 - Nausea with vomiting, unspecified (2) Hyperglycemia due to diabetes mellitus: (3) Chemotherapy adverse reaction: QUALIFIERS: Encounter type: subsequent encounter Qualified Code(s): T45.1X5D - Adverse effect of antineoplastic and immunosuppressive drugs, subsequent encounter (4) Esophageal cancer: QUALIFIERS: Malignant neoplasm of esophagus location: lower third Qualified Code(s): C15.5 - Malignant neoplasm of lower third of esophagus (5) Renal transplant recipient: PLAN: Plan Intractable nausea and vomiting/chemotherapy adverse reaction Supportive treatment with IV fluids, as needed Zofran, as needed reglan; and as needed Compazine ordered. Chemotherapy regimen continued. Oncology consult. Patient on Compazine and Reglan. Continue hydration. On Zofran Hyperglycemia due to diabetes mellitus Accu-Chek QA CHS ordered. Home insulin pump continued. Patient and to manage home insulin pump. Esophageal cancer Persistent Renal transplant patient Stable Home immunosuppressive medication and Bactrim continued. History of A-fib Stable Home Eliquis continued Feeding: Home Jevity 1.5 237 mL 5 times a day continued DVT prophylaxis: Not indicated as patient's home Eliquis has been continued. Charges/Coding Visit Charges Inpatient E&M: 18484 Subs Hosp L2
[2022-10-16] MEDS: 0.9% Saline Lock 10 ML Syringe IV (11:29)
[2022-10-16] MEDS: Tacrolimus Anhydrous 1 MG Capsule GT ×2 (11:32→23:23)
[2022-10-16] MEDS: Metoprolol Tartrate 50 MG Tablet GT ×2 (11:37→23:24)
[2022-10-16] MEDS: Mycophenolate Mofetil 250 MG Capsule 500 MG PO ×2 (11:50→23:24)
[2022-10-16] MEDS: amLODIPine 10 MG Tablet PO (11:53)
[2022-10-16] MEDS: Lansoprazole 15 MG Capsule.DR GT (11:54)
[2022-10-16 12:01] LABS: Bedside Glucose 160 mg/dL (74-106)
--- NOTE | 2022-10-16 13:19 | ONC.CONSULT ---
Assessment & Plan Assessment/Plan (1) Nausea & vomiting: Status: Acute Code(s): R11.2 - Nausea with vomiting, unspecified Qualifiers: Vomiting type: unspecified Qualified Code(s): R11.2 - Nausea with vomiting, unspecified Plan: Impression: -Breakthrough nausea despite addition fosaprepitant and using Zofran ATC. Plan: -Continue hydration. -Continue compazine and regaln prn. -Favor keeping one night, but if feels much better later today can d/c. -Discussed decreasing pump to 24 hours next cycle. (2) Hyperglycemia due to diabetes mellitus: Status: Acute Code(s): E11.65 - Type 2 diabetes mellitus with hyperglycemia (3) Chemotherapy adverse reaction: Status: Acute Code(s): T45.1X5A - Adverse effect of antineoplastic and immunosuppressive drugs, initial encounter Qualifiers: Encounter type: subsequent encounter Qualified Code(s): T45.1X5D - Adverse effect of antineoplastic and immunosuppressive drugs, subsequent encounter (4) Esophageal cancer: Status: Acute Code(s): C15.9 - Malignant neoplasm of esophagus, unspecified Qualifiers: Malignant neoplasm of esophagus location: lower third Qualified Code(s): C15.5 - Malignant neoplasm of lower third of esophagus (5) Renal transplant recipient: Status: Acute Code(s): Z94.0 - Kidney transplant status HPI Consult Data Date of Service:: 10/16/22 PCP / Referring Provider: Dr. Mikayla Lopez MD Attending: Dr. Marshall Mcclure MD Chief Complaint Chief Complaint: Nausea and vomiting History of Present Illness History of Present Illness: Oncologic problem(s): 1) Squamous cell carcinoma of the esophagus. ? HPI: The patient is a 71-year-old male who has a past medical history significant for type 1 diabetes complicated by diabetic neuropathy, partial foot amputation and renal transplant in 2013. Also has a past history significant for GERD, esophageal stricture, atrial fibrillation, hyperlipidemia, essential hypertension and AV fistula. ? Patient developed dysphagia to solids and liquids for about a month prior to presentation at [facility]. He had lost about 30 lbs. ? CT A/P on 05/21/22: Bibasilar mild interstitial infiltrates. Multiple bilateral pulmonary nodules measuring up to 3 x 7 mm on the right. calcific coronary artery disease. ? Normal liver. Normal gallbladder and extrahepatic biliary system. Normal spleen. Normal pancreas. ? 2.8 cm heterogeneous right adrenal mass. Left adrenal normal. ? Bilateral renal atrophy. Bilateral renal cysts measuring up to 5.5 cm on the right. ? Normal visualized stomach. Normal small intestine. Colonic diverticulosis. Oral contrast noted in the small bowel. The appendix is visualized and appears normal. ? Calcified plaque along the aorta and its branches. Normal inferior vena cava. Normal retroperitoneum. ? Normal urinary bladder. Bilateral fat-containing inguinal hernias. Pelvic kidney/transplant on the right. ? Fat-containing umbilical hernia. Degenerative disc disease and spinal stenosis L4-5. ? IMPRESSION: Bibasilar infiltrates. Bilateral pulmonary nodules. Recommend follow-up CT chest nonemergently. Right adrenal mass. Recommend follow-up adrenal CT or MRI. Bilateral renal atrophy and right pelvic renal transplant. ? CT chest 05/23/2022: CHEST ? There is a 3.8 cm x 3.5 cm x 4.1 cm soft tissue mass in the proximal portion of the esophagus. The esophagus is dilated proximal to these lesion with air-fluid level. Esophageal carcinoma should be ruled out. ? Increased markings are seen at the lung bases suggestive of scarring. There is a 2.6 cm pleural-based linear density in the posteromedial segment of the left lower lobe. There is also evidence of a linear 1.6 mm density in the peripheral aspect of the right lower lung. This is pleural-based. There is no demonstrated pleural abnormality. ? There are calcifications of the coronary arteries. ? Normal mediastinum. Normal hilar regions. Normal unenhanced pulmonary arteries. Normal aorta arch and descending thoracic aorta. ? There are mild degenerative changes of the thoracic spine. ? Mild fluid distention of the distal esophagus. There is a 2.3 cm x 2.4 cm right adrenal mass. Fatty infiltration of the liver. ? IMPRESSION: Soft tissue mass in the proximal esophagus with her every level and dilatation of the proximal esophagus. Fluid distention of the distal esophagus. Findings suggestive of scarring at the lung bases and possible tiny metastatic deposits. Right adrenal mass. ? EGD at the [facility] on 05/21/22 and malignant esophageal stricture was found at 25-27 cm. The stricture was dilated and biopsied. ? Pathology: -Frozen section of biopsy demonstrated no evidence of carcinoma. -Proximal esophageal stricture, biopsy: Fragments of esophageal squamous mucosa showing erosion, acute and chronic inflammation, and pseudoepitheliomatous hyperplasia and reactive changes. Negative for dysplasia or malignancy. See comment. B. Distal esophageal stricture, biopsy: Fragments of esophageal squamous mucosa showing erosion, acute and chronic inflammation, and pseudoepitheliomatous hyperplasia and reactive changes. Negative for dysplasia or malignancy. See comment. ? Specimen sent to [facility] who concurred. ? He was transferred to [facility]. Repeat EGD on 05/27/22 showed a?malignant-appearing, intrinsic severe stenosis?at 24-27 cm.?This stenosis measured 5 mm (inner diameter) x 4 cm (in length).?EUS showed a??hypoechoic mass?at 24 cm.?The mass measured up to 38 mm in thickness.?There was sonographic evidence suggesting invasion into the adventitia (Layer 5). ? Pathology: A. ?Esophagus, mass, biopsy: - Predominantly necrotic squamous epithelium, rare detached fragment of dysplastic squamous epithelium, and fragment of squamous mucosa with focal atypia. B. ?Esophagus, mass, fine-needle biopsy: - Invasive well-differentiated squamous cell carcinoma (see comment). ? Bronchoscopy 05/30/2022 to rule out tracheal involvement. The airway examination was normal with no tracheal invasion or endobronchial lesions noted. Brown-tinged material noted throughout the airway predominantly in the bilateral lower lobes was aspirated. Therapeutic suctioning was performed. Analysis and cultures were not performed. ? PEG tube was placed on 05/28/22. ? PET/CT scan on 06/02/22 showed a?3.9 cm intensely hypermetabolic esophageal lesion.?0.6 cm right lower lobe nodule is favored to be benign/granulomatous disease.?2.4 cm right adrenal hypermetabolic lesion is suspicious for metastatic disease. ? At initial consultation: Tolerating TFs well. Bowels moving. Stools formed. No reflux. Occasional nausea. ? Hands and feet numb. Right forefoot amputation. Left foot--blister under large toe. Sees Dr. Morris at [facility]. ? No known h/o CAD. Atrial fibrillation. On ASA only. No previous stroke. ? Has diabetic retinopathy. ? Previous therapy: 1) Carboplatin and paclitaxel on a weekly schedule with concurrent radiation. Completed 07/31/2022. ? Restaging scans suggested decrease in esophageal tumor size and lymphadenopathy. ? He underwent restaging EGD/EUS on 08/26/2022. He was found to have a completely obstructing malignant appearing esophageal stenosis. A new 16 Palestinian Vanos balloon gastrostomy tube inserted. The duodenum was normal. Mass was found in the middle third of esophagus and it was staged as T3 based on invasion into the adventitia. NX MX by endoscopic criteria. Esophagectomy was cancelled based on progression of disease. ? Current therapy: 2) FOLFOX. Patient had significant nausea with retching on day 2 of cycle 1. For cycle #2 fosaprepitant was added and he was advised to use sublingual Zofran [id number] starting 6 to 8 hours after his chemotherapy infusion 2 days ago. I was contacted by his daughter last evening because he was beginning to have severe nausea and retching again. He presented to the ED. He was given hydration and antiemetic therapy and admitted. No further vomiting once 5-FU pump removed. Sleeping now. Discussed with . Advanced Directives Power of Law Firm Administrator: Yes Living Will: Yes [facility] Medical History Ambulates with cane Amputation finger Amputation of toe Anemia of chronic disease Atrial fibrillation Diabetes mellitus, type II Esophageal cancer Gastric reflux History of steroid therapy HLD (hyperlipidemia) Hypertension Hypertension Insulin dependent diabetes mellitus Wears dentures Wears glasses Wears hearing aid Home Medications aspirin 81 mg tablet,delayed release 81 mg PO DAILY heart heatlh 11/29/12 [History Last Taken 04/22/21] metoprolol tartrate 50 mg tablet 50 mg PO BID bp 11/29/12 [History Last Taken 04/25/21 08:00] niacin 250 mg tablet,extended release (Slo-Niacin) 500 mg PO DAILY b vitamin 11/29/12 [History Last Taken 05/18/15 09:00] rosuvastatin 20 mg tablet (Crestor) 20 mg PO QHS hld 11/29/12 [History Last Taken 05/17/15] famotidine 20 mg tablet 20 mg PO QHS GERD 05/11/15 [History Last Taken 05/17/15] mycophenolate mofetil 500 mg tablet (CellCept) 500 mg PO BID transplant kidney 05/11/15 [History Last Taken 04/25/21 08:00] prednisone 2.5 mg tablet 5 mg PO DAILY steriod 05/11/15 [History Last Taken 04/25/21 08:00] tacrolimus 1 mg capsule, immediate-release (Prograf) 1 mg PO BID anit rejection 05/11/15 [History Last Taken 05/18/15 09:00] cholecalciferol (vitamin D3) 25 mcg (1,000 unit) tablet (Vitamin D3) 2,000 unit PO DAILY vitamin 05/17/15 [History Last Taken 05/18/15] insulin aspart U-100 100 unit/mL (3 mL) subcutaneous pen (Novolog FlexPen U-100 Insulin aspart) See Protocol subcut CONT DM 02/06/18 [History Last Taken 02/06/18] sulfamethoxazole 800 mg-trimethoprim 160 mg tablet (Bactrim DS) 1 tab PO MOWEFR antireection 02/26/22 [History Last Taken Unknown] amlodipine 2.5 mg tablet 2.5 mg PO DAILY 04/03/22 [History Last Taken Unknown] omeprazole 20 mg tablet,delayed release 20 mg PO DAILY 05/21/22 [History Last Taken Unknown] hydrocodone bitartrate 15 mg capsule, oral only, extended rel 12 hr 15 mg PO Q8 10/16/22 [History Last Taken Unknown] lactose-reduced food with fiber 0.06 gram-1.5 kcal/mL oral liquid (Jevity 1.5 Victorino) 237 ml feeding tube .COMPLEX 10/16/22 [History Last Taken Unknown] Allergy/AdvReac Type Severity Reaction Status Date / Time diphenhydramine AdvReac Mild jittery/ Verified 10/16/22 01:16 [From Benadryl] anxious Family History Mother Kidney disease Hypertension High cholesterol Diabetes Father Kidney disease Hypertension High cholesterol Diabetes Surgical History Amputation of foot Hx of kidney transplant Hx of surgical amputation of finger Renal transplant recipient Social History household members: spouse, family and children Smoking Status: Former smoker how long ago did patient quit smoking: Quit~ 50 years prior smoked youth until quit 2 ppd. alcohol intake: former details: Drank heavily in youth, stopped ~ 50 years prior. substance use type: does not use what type of physical activity do you participate in: walking Vital Signs Temperature 98.0 F 10/16/22 08:00 Temperature Source Oral 10/16/22 08:00 Pulse Rate 87 10/16/22 11:37 Respiratory Rate 18 10/16/22 08:00 Respiratory Effort Normal, Non-Labored 10/16/22 08:24 Respiratory Depth Normal 10/16/22 08:24 Respiratory Pattern Normal 10/16/22 08:24 Blood Pressure 175/94 H 10/16/22 11:37 Blood Pressure Mean 116 10/16/22 08:00 Blood Pressure Source Monitor 10/16/22 08:00 Blood Pressure Position Supine 10/16/22 08:00 Blood Pressure Location Right Arm 10/16/22 08:00 Pulse Ox 94 10/16/22 08:00 Oxygen Delivery Method Nasal Cannula 10/16/22 08:24 Oxygen Flow Rate (L/min) 2 10/16/22 08:24 Laboratory Results - last 24 hr 10/15/22 20:20: WBC 5.4, RBC 3.98 L, Hgb 10.9 L, Hct 33.4 L, MCV 83.9, MCH 27.4, MCHC 32.6, RDW Std Deviation 46.4 H, RDW Coeff of Ayaka 15.3 H, Plt Count 173, MPV 10.1, Immature Gran % (Auto) 0.400, Neut % (Auto) 84.2 H, Lymph % (Auto) 5.6 L, [place] % (Auto) 9.8, Eos % (Auto) 0.0, Baso % (Auto) 0.0, Absolute Neuts (auto) 4.5, Absolute Lymphs (auto) 0.30 L, Nucleated RBC % 0, Differential Comment SCANNED, Sodium 130 L, Potassium 5.2 H, Chloride 97 L, Carbon Dioxide 27.0, Anion Gap 6, BUN 27 H, Creatinine 1.02, Estim Creat Clear Calc 69.58, Est GFR (MDRD) Af Amer 93, Est GFR (MDRD) Non-Af 77, BUN/Creatinine Ratio 26.5 H, Glucose 295 H, Calcium 8.9, Total Bilirubin 0.60, AST 26, ALT 20, Alkaline Phosphatase 63, Total Protein 6.5, Albumin 2.5 L, Globulin 4.0, Albumin/Globulin Ratio 0.6 L, Lipase 10 L 10/16/22 02:50: POC Glucose 140 H 10/16/22 06:25: POC Glucose 141 H 10/16/22 11:30: POC Glucose 160 H
--- NOTE | 2022-10-16 13:39 | CHAPLAIN ---
Type of Pastoral Visit _x__ Initial Visit ___ Follow-up Visit ___ On-call Visit ___ General Patient Visit ___ Spiritual Assessment ___ Family Conference ___ Bereavement ___ Rapid Response ___ Code Blue ___ Other (describe below) Pastoral Care Referral From ___ Patient _x__ Family ___ Nurse ___ Physician ___ Social Services Technician ___ Table Attendant ___ Other (describe below) Sacrament/Intervention _x__ Active listening ___ Anointing ___ Gnosticist ___ Bereavement ___ Communion _x__ Shanell exploration ___ ___ Life review _x__ Prayer ___ Reconciliation ___ Sacrament of Sick _x__ Supportive presence ___ Wedding ___ Other (describe below) Pastoral Comments patient is resting and keeps eyes closed the entire visit; RN is giving meds; spouse and daughter are in the room; pt answers spouse when she speaks but does not respond to others in the room; spouse does the talking and indicates that cancer has caused some difficulties and surgery is not possible at this time; spouse states that they just put it in God's hands and they will accept what he plans; family members indicate others are praying for pt too; spouse requests prayers for the patient and that is given; ongoing support for all is offered
[2022-10-16] MEDS: Enoxaparin 40 MG/0.4 ML Syringe SC (14:41)
--- NOTE | 2022-10-16 14:59 | CASEMGMT ---
WALTER WILLIAMSON Assessment: Face to Face with pt for initial transition planning/care coordination assessment. RN TERI introduced self and role at [facility], pt voices understanding and consents to assessment. Pt is lying in bed with eyes closed, willing to answer assessment questions to allow pt to sleep. RN present in room as well. Care providers, pharmacy, and demographics verified/updated. Admitting Dx: intractable N/V PCP:Jessica Specialists:[facility] Preferred [facility]acy:[facility] Insurance: [employer] LW/DPOA: Pt states that she is pt DPOA, she will bring in paperwork to be scanned into the chart. Prescription Benefit: no LNOK: Sonia Zuleta, Living Arrangements: Pt lives with in a single story home with no steps to enter. Pt reports pt is I in ADL's. Transportation: Pt hires drivers for transportation. DME/HHC/SNF: Pt has an insulin pump that checks his blood sugars. Pt reports they have sufficient supplies for this. Pt has a cane that he uses at home. Pt has had [facility] past [facility] well [facility], no SNF stays. Pt states no concerns with going home at time of dc. She states should pt need any further DME, they have availability as their community has supply. Pt has a PEG tube and and pt administer feedings. Pt order supplies. She could not recall the name of the company. She states she does have 2 cases of feedings that were just delivered. Pt wound to his foot is almost healed, no dressing changes being done currently. Pt states no further concerns/needs. CM to follow. Advised pt to ask CM if any further question/concerns/needs arise, voices understanding. Pt Goal: Home Plan: Home
[2022-10-16 16:45] LABS: Bedside Glucose 248 mg/dL (74-106)
[2022-10-16] MEDS: Atorvastatin Calcium 40 MG Tablet GT (23:25)
[2022-10-16] MEDS: HYDROCODONE/APAP 7.5-325/15ML 15 ML UDC GT (23:36)
[2022-10-17] VITALS: BP 128/84; PULSE 82; RESP 18; TEMP 36.6; O2SAT 97
[2022-10-17 06:00] VITALS: BP 152/80; PULSE 69; RESP 18; TEMP 36.7; O2SAT 98
[2022-10-17] MEDS: Jevity 1.5. 1,000 ML Bottle 237 ML GT ×3 (06:30→12:25)
[2022-10-17 07:15] LABS: Absolute Lymphocyte Count 0.55 X10^3/uL (0.83-4.51); Absolute Neutrophil Count 1.4 X10^3/uL (2.0-7.7); Hematocrit 33.2 % (40-54); Hemoglobin 10.5 g/dL (13.0-16.5); Lymphocyte # 0.55 X10^3/ul (0.83-4.51); Lymphocyte % 25.1 % (19-41); Mean Corp Hgb Conc 31.6 g/dL (32-36); Mean Corpuscular Hgb 26.9 pg (27.0-32.0); Mean Corpuscular Volume 85.1 fL (80-94); Monocyte# 0.22 X10^3/uL; NRBC Flagged by Analyzer 0 % (0-5); Neutrophil # 1.41 X10^3/uL (2.7-7.7); Neutrophil % 64.4 % (47-70); POSITIVE DIFFERENTIAL YES; Platelet Count 148 K/mm3 (150-450); RBC Distribution Width CV 16.2 % (11.6-14.6); White Blood Count 2.2 K/mm3 (4.4-11.0)
[2022-10-17 07:19] LABS: Differential Indicated SCAN CRITERIA MET
[2022-10-17 07:49] LABS: ALB/GLOB Ratio 0.7 RATIO (0.9-2.4); AST(SGOT) 18 U/L (15-37); Alanine Aminotransfer ALT/SGPT 20 U/L (16-61); Albumin, Serum 2.4 g/dL (3.2-5.0); Alkaline Phosphatase 60 U/L (45-117); Anion Gap 4 (5-15); BUN 27 mg/dL (7-18); BUN/Creat Ratio 32.2 RATIO (10-20); Calcium,Total 8.8 mg/dL (8.5-10.1); Chloride 111 mmol/L (98-107); Creatinine, Serum 0.84 mg/dL (0.70-1.30); EST Glomerular Filtration Rate 96 mL/min (>60); Est Glom Filt Rate - Afr Amer 117 mL/min (>60); Estimated Creatinine Clearance 84.49 ml/min; Globulin 3.5 g/dL (2.2-4.2); Glucose 80 mg/dL (74-106); Protein, Total 5.9 g/dL (6.4-8.2); Sodium Level 140 mmol/L (136-145)
[2022-10-17 08:53] VITALS: PULSE 70
[2022-10-17] MEDS: predniSONE 5 MG Tablet GT (08:53)
[2022-10-17] MEDS: Mycophenolate Mofetil 250 MG Capsule 500 MG PO (08:53)
[2022-10-17] MEDS: Metoprolol Tartrate 50 MG Tablet GT (08:53)
[2022-10-17] MEDS: Lansoprazole 15 MG Capsule.DR GT (08:53)
[2022-10-17] MEDS: HYDROCODONE/APAP 7.5-325/15ML 15 ML UDC GT (08:53)
[2022-10-17] MEDS: Aspirin 81 MG TAB.CHEW GT (08:53)
[2022-10-17] MEDS: Enoxaparin 40 MG/0.4 ML Syringe SC (08:53)
[2022-10-17] MEDS: Tacrolimus Anhydrous 1 MG Capsule GT (08:53)
[2022-10-17 09:00] VITALS: BP 148/73; PULSE 77; RESP 18; TEMP 37.1; O2SAT 95
--- NOTE | 2022-10-17 09:44 | DCINST_ITS ---
Discharge Instructions Diet Discharge Diet: - (237 ml Tube feed bolus 0900,1200,1500,1800,2100. 90mL feeding tube flush before and after each bolus) Activity Discharge Activity: Return to Normal Activity Weight Bearing Status: Weight bearing as tolerated Dressing / Incision Call your doctor if you observe: Fever of 101 or Higher, Coldness, Increased Pain, Numbness or Tingling, Change in Color, Inability to urinate, Inability to have a bowel movement, Shortness of breath, Dizziness, Fainting spells, Swelling in the ankles, Chest pain, Prolonged hiccupping, Increased palpitations (irregular heartbeat) and Calf discomfort Follow Up Care When: IN 2 WEEKS Test Results: Test results from this visit will be discussed in further detail at your follow- up appointment, if applicable. Discharge Plan Admission Admit Date/Time: 10/15/22 23:56 Primary Reason for Your Visit: Intractable nausea and vomiting from chemotherapy. Attending Provider: Marshall Mcclure Primary Care Provider: Mikayla Lopez Consulting Providers: Miky Ruiz; Francisco Anthony Instructions Patient Instructions: ED Vomiting (Adult) Additional Instructions / Restrictions: Your blood work is stable. You are given 2 L of fluid, IV Reglan and IV Zofran. Your symptoms controlled. Continue your infusion per Dr. Anthony. Keep your follow-up tomorrow for reevaluation. Return if worsening symptoms. Discharge Orders/Prescriptions Prescriptions: New amlodipine 10 mg Tablet 5 mg PO DAILY 30 Days Qty: 30 0RF Rx Instructions: Hold for SBP less than 130 mmHg ondansetron 8 mg tablet,disintegrating 8 mg PO Q8H PRN (Reason: nausea and vomiting) 30 Days Qty: 30 0RF metoclopramide HCl [Reglan] 5 mg tablet 5 mg PO Q6H PRN (Reason: nausea and vomiting) Qty: 30 0RF Continued amlodipine 2.5 mg tablet 2.5 mg PO DAILY aspirin 81 MG tablet 81 mg PO DAILY Patient Comments: [facility] niacin [Slo-Niacin] 250 MG tablet extended release 500 mg PO DAILY Hold Instructions: Pt refuses the test Patient Comments: SUPPLEMENT metoprolol tartrate 50 MG tablet 50 mg PO BID Patient Comments: BLOOD PRESSURE rosuvastatin [Crestor] 20 MG tablet 20 mg PO QHS Patient Comments: decrease cholesterol mycophenolate mofetil [CellCept] 500 MG tablet 500 mg PO BID Patient Comments: ANTI-REJECTION MED prednisone 2.5 MG tablet 5 mg PO DAILY Patient Comments: STEROID tacrolimus [Prograf] 1 MG capsule 1 mg PO BID Patient Comments: KIDNEYS famotidine 20 MG tablet 20 mg PO QHS Hold Instructions: per md Patient Comments: GERD cholecalciferol (vitamin D3) [Vitamin D3] 1,000 UNIT tablet 2,000 unit PO DAILY Hold Instructions: per md Patient Comments: SUPPLEMENT insulin aspart U-100 [Novolog FlexPen U-100 Insulin] 100 UNITS/ML insulin pen See Protocol subcut CONT Protocol: 6. Sliding Scale Insulin Custom Condition: mg/dl range Dose/Route: Number of Units Instruction: using insulin pump Protocol Text: Custom Sliding Scale Rx Instructions: insulin pump sulfamethoxazole-trimethoprim [Bactrim DS] 800-160 mg tablet 1 tab PO MOWEFR Rx Instructions: 1 TAB orally MWF omeprazole 20 mg Tablet,Delayed Release (Dr/Ec) 20 mg PO DAILY hydrocodone bitartrate 15 mg capsule, oral only, ER 12hr 15 mg PO Q8 Jevity 1.5 Victorino 0.06 gram-1.5 kcal/mL liquid 237 ml feeding tube .COMPLEX Rx Instructions: 237 mL via feeding tube 0900,1200,1500,1800,2100; Referrals / Follow Up: Mikayla Lopez MD [Primary Care Provider] - Francisco Anthony DO [Med Staff - Active Staff] - 1 Day Disposition Disposition (needs filled in before D/C Order can be placed): Home, Self Care
--- NOTE | 2022-10-17 10:48 | CASEMGMT ---
RN CM into pt room, pt lying in bed awake with at bedside. Discussed dc planning. Pt feels much better and states he does not feel any services are needed for homegoing. Verified assessment with him from information from yesterday. Pt goal is to return home. No further needs at this time.
[2022-10-17 11:28] LABS: Bedside Glucose 219 mg/dL (74-106)
--- NOTE | 2022-10-17 12:10 | DS.PCM_ITS ---
Providers Date of Admission: 10/15/22 Date of Discharge: 10/17/22 Primary Care Physician: Dr. Mikayla Lopez MD Consultations 10/16/22 00:36 Consult: Oncology/Hematology Routine Consulting Provider: Francisco Anthony Reason for Consult: Esophageal cancer EMERGENT Consult: No MD Notified: Yes Date Notified: 10/16/22 Time Notified: 09:11 Method of Notification: office Reason For Visit: INTRACTABLE NAUSEA AND VOMITING Diagnosis Discharge Diagnosis (1) Nausea & vomiting: Status: Acute Code(s): R11.2 - Nausea with vomiting, unspecified Qualifiers: Vomiting type: unspecified Qualified Code(s): R11.2 - Nausea with vomiting, unspecified (2) Hyperglycemia due to diabetes mellitus: Status: Acute Code(s): E11.65 - Type 2 diabetes mellitus with hyperglycemia (3) Chemotherapy adverse reaction: Status: Acute Code(s): T45.1X5A - Adverse effect of antineoplastic and immunosuppressive drugs, initial encounter Qualifiers: Encounter type: subsequent encounter Qualified Code(s): T45.1X5D - Adverse effect of antineoplastic and immunosuppressive drugs, subsequent encounter (4) Esophageal cancer: Status: Acute Code(s): C15.9 - Malignant neoplasm of esophagus, unspecified Qualifiers: Malignant neoplasm of esophagus location: lower third Qualified Code(s): C15.5 - Malignant neoplasm of lower third of esophagus (5) Renal transplant recipient: Status: Acute Code(s): Z94.0 - Kidney transplant status Plan 72-year-old gentleman with multiple comorbidities with H/o esophageal cancer s/p chemotherapy is admitted with dry heaving, nausea, vomiting with small phlegm and hiccoug Intractable nausea and vomiting/chemotherapy adverse reaction. Patient was started on chemotherapy first infusion about 2 weeks ago. His infusion was supposed to last for 46 to 48 hours/his regimen is FOLFOX. Supportive treatment with IV fluids. Oncology is consulted . Patient was started on ATC Zofran and fosaprepitant Patient on scheduled Zofran, Compazine and Reglan and then as needed. Continue hydration. Hyperglycemia due to diabetes mellitus Accu-Chek QA CHS ordered. Home insulin pump continued. Patient and to manage home insulin pump. Esophageal cancer Persistent Renal transplant patient Stable. Patient on Prograf, CellCept, Bactrim 3 times a week, prednisone 5 mg daily. On home immunosuppressive medications History of A-fib Stable Home Eliquis continued Feeding: Home Jevity 1.5 237 mL 5 times a day continued DVT prophylaxis: Not indicated as patient's home Eliquis has been continued. Discharge medication reconciliation done. Discharge follow-up instructions co mpleted. Discharge process discussed with the patient and all questions were answered to patient's satisfaction. Total time spent, exact 35 minutes on discharge meds reconciliation, examination, coordination of care with nurses and ancillary staff, review of imaging and blood test and discussion with the patient on follow-up instructions. Medications at Discharge Home Medications aspirin 81 mg tablet,delayed release 81 mg PO DAILY heart heatlh 11/29/12 metoprolol tartrate 50 mg tablet 50 mg PO BID bp 11/29/12 niacin 250 mg tablet,extended release (Slo-Niacin) 500 mg PO DAILY b vitamin 11/29/12 rosuvastatin 20 mg tablet (Crestor) 20 mg PO QHS hld 11/29/12 famotidine 20 mg tablet 20 mg PO QHS GERD 05/11/15 mycophenolate mofetil 500 mg tablet (CellCept) 500 mg PO BID transplant kidney 05/11/15 prednisone 2.5 mg tablet 5 mg PO DAILY steriod 05/11/15 tacrolimus 1 mg capsule, immediate-release (Prograf) 1 mg PO BID anit rejection 05/11/15 cholecalciferol (vitamin D3) 25 mcg (1,000 unit) tablet (Vitamin D3) 2,000 unit PO DAILY vitamin 05/17/15 insulin aspart U-100 100 unit/mL (3 mL) subcutaneous pen (Novolog FlexPen U-100 Insulin aspart) See Protocol subcut CONT DM 02/06/18 sulfamethoxazole 800 mg-trimethoprim 160 mg tablet (Bactrim DS) 1 tab PO MOWEFR antireection 02/26/22 amlodipine 2.5 mg tablet 2.5 mg PO DAILY 04/03/22 omeprazole 20 mg tablet,delayed release 20 mg PO DAILY 05/21/22 hydrocodone bitartrate 15 mg capsule, oral only, extended rel 12 hr 15 mg PO Q8 10/16/22 lactose-reduced food with fiber 0.06 gram-1.5 kcal/mL oral liquid (Jevity 1.5 Victorino) 237 ml feeding tube .COMPLEX 10/16/22 amlodipine 10 mg tablet 5 mg (1/2 x 10 mg) PO DAILY 30 days #30 tabs 10/17/22 metoclopramide HCl 5 mg tablet (Reglan) 5 mg PO Q6H PRN nausea and vomiting #30 tabs 10/17/22 ondansetron 8 mg disintegrating tablet 8 mg PO Q8H PRN nausea and vomiting 30 days #30 tabs 10/17/22 Physical Exam Narrative Seen and examined. Patient shortness of breath is better. Currently on 2 L of oxygen. Mild dyspnea on exertion Physical exam General: Alert, Oriented x3, Cooperative HEENT: Atraumatic, PERRLA, EOMI, Normocephalic Oral: Oral mucosa dry. No Gingival or Mucosal Lesions/ Ulcerations Neck: Supple, No JVD, Negative Carotid Bruits Chest Wall/lungs: Port on the left upper chest. Air entry diminished in bilateral lung bases. Mild crepitation. Cardiovascular: Regular rate, Regular Rhythm, Normal S1, Normal S2, No murmurs Abdomen: Insulin pump. Bowel Sounds Present, Soft, Non Tender, Non-Distended : Status post kidney transplant. No renal angle tenderness. No suprapubic tenderness. Extremities: No edema, Capillary Refill Less than 3 Seconds Skin: No rashes, No breakdown Musculoskeletal: Right midfoot amputation. No Tenderness to Palpation of Joints or Extremities. Neurological: Cranial nerves II-XII grossly intact, DTR 2+/4. No acute focal neurological deficit. Psych/Mental Status: Normal Affect, Appropriate. Weight / BMI Weight Weight: 206 lb 6.4 oz Body Mass Index (BMI) 29.6 ABG / Lab / Microbiology Data 10/17/22 06:25 10/17/22 06:25 Laboratory: Laboratory Results - last 24 hr 10/16/22 16:08: POC Glucose 248 H 10/17/22 06:25: WBC 2.2 L, RBC 3.90 L, Hgb 10.5 L, Hct 33.2 L, MCV 85.1, MCH 26. 9 L, MCHC 31.6 L, RDW Std Deviation 50.0 H, RDW Coeff of Ayaka 16.2 H, Plt Count 148 L, MPV 10.0, Immature Gran % (Auto) 0.500, Neut % (Auto) 64.4, Lymph % (Auto) 25.1, [place] % (Auto) 10.0, Eos % (Auto) 0.0, Baso % (Auto) 0.0, Absolute Neuts (auto) 1.4 L, Absolute Lymphs (auto) 0.55 L, Nucleated RBC % 0, Differential Comment COMMENT, Diff Path Review May foll, Sodium 140, Potassium 4.0, Chloride 111 H, Carbon Dioxide 25.0, Anion Gap 4 L, BUN 27 H, Creatinine 0.84, Estim Creat Clear Calc 84.49, Est GFR (MDRD) Af Amer 117, Est GFR (MDRD) Non-Af 96, BUN/Creatinine Ratio 32.2 H, Glucose 80, Calcium 8.8, Total Bilirubin 0.60, AST 18, ALT 20, Alkaline Phosphatase 60, Total Protein 5.9 L, Albumin 2.4 L, Globulin 3.5, Albumin/Globulin Ratio 0.7 L 10/17/22 11:04: POC Glucose 219 H D/C Instructions Discharge Diet: - (237 ml Tube feed bolus 0900,1200,1500,1800,2100. 90mL feeding tube flush before and after each bolus) Weight Bearing Status: Weight bearing as tolerated Call your doctor if you observe: Fever of 101 or Higher, Coldness, Increased Pain, Numbness or Tingling, Change in Color, Inability to urinate, Inability to have a bowel movement, Shortness of breath, Dizziness, Fainting spells, Swelling in the ankles, Chest pain, Prolonged hiccupping, Increased palpitations (irregular heartbeat) and Calf discomfort When: IN 2 WEEKS Meaningful Use Info Meaningful Use Diagnoses (Choose all that apply): None applicable Discharge Plan Admission Admit Date/Time: 10/15/22 23:56 Primary Reason for Your Visit: Intractable nausea and vomiting from chemotherapy. Attending Provider: Marshall Mcclure Primary Care Provider: Mikayla Lopez Consulting Providers: Miky Ruiz; Francisco Anthony Instructions Patient Instructions: ED Vomiting (Adult) Additional Instructions / Restrictions: Your blood work is stable. You are given 2 L of fluid, IV Reglan and IV Zofran. Your symptoms controlled. Continue your infusion per Dr. Anthony. Keep your follow-up tomorrow for reevaluation. Return if worsening symptoms. Discharge Orders/Prescriptions Prescriptions: New amlodipine 10 mg Tablet 5 mg PO DAILY 30 Days Qty: 30 0RF Rx Instructions: Hold for SBP less than 130 mmHg ondansetron 8 mg tablet,disintegrating 8 mg PO Q8H PRN (Reason: nausea and vomiting) 30 Days Qty: 30 0RF metoclopramide HCl [Reglan] 5 mg tablet 5 mg PO Q6H PRN (Reason: nausea and vomiting) Qty: 30 0RF Continued amlodipine 2.5 mg tablet 2.5 mg PO DAILY aspirin 81 MG tablet 81 mg PO DAILY Patient Comments: HE[facility] HEALTH niacin [Slo-Niacin] 250 MG tablet extended release 500 mg PO DAILY Hold Instructions: Pt refuses the test Patient Comments: SUPPLEMENT metoprolol tartrate 50 MG tablet 50 mg PO BID Patient Comments: BLOOD PRESSURE rosuvastatin [Crestor] 20 MG tablet 20 mg PO QHS Patient Comments: decrease cholesterol mycophenolate mofetil [CellCept] 500 MG tablet 500 mg PO BID Patient Comments: ANTI-REJECTION MED prednisone 2.5 MG tablet 5 mg PO DAILY Patient Comments: STEROID tacrolimus [Prograf] 1 MG capsule 1 mg PO BID Patient Comments: KIDNEYS famotidine 20 MG tablet 20 mg PO QHS Hold Instructions: per md Patient Comments: GERD cholecalciferol (vitamin D3) [Vitamin D3] 1,000 UNIT tablet 2,000 unit PO DAILY Hold Instructions: per md Patient Comments: SUPPLEMENT insulin aspart U-100 [Novolog FlexPen U-100 Insulin] 100 UNITS/ML insulin pen See Protocol subcut CONT Protocol: 6. Sliding Scale Insulin Custom Condition: mg/dl range Dose/Route: Number of Units Instruction: using insulin pump Protocol Text: Custom Sliding Scale Rx Instructions: insulin pump sulfamethoxazole-trimethoprim [Bactrim DS] 800-160 mg tablet 1 tab PO MOWEFR Rx Instructions: 1 TAB orally MWF omeprazole 20 mg Tablet,Delayed Release (Dr/Ec) 20 mg PO DAILY hydrocodone bitartrate 15 mg capsule, oral only, ER 12hr 15 mg PO Q8 Jevity 1.5 Victorino 0.06 gram-1.5 kcal/mL liquid 237 ml feeding tube .COMPLEX Rx Instructions: 237 mL via feeding tube 0900,1200,1500,1800,2100; Referrals / Follow Up: Mikayla Lopez MD [Primary Care Provider] - Francisco Anthony DO [Med Staff - Active Staff] - 1 Day Disposition Disposition (needs filled in before D/C Order can be placed): Home, Self Care Charges/Coding Visit Charges Inpatient E&M: 97105 Disch Hosp >30min
[2022-10-17] MEDS: SMZ/TPM Suspension 20 ML GT (12:25)
[2022-10-17 12:36] LABS: Pathologist Review Reviewed
== END 2022-10-17 15:18 | disposition home or self-care (01) ==
LOC: ED 23:25 → MS3 10-16 00:18
PROVIDERS: Admitting Provider Hospitalist; Emergency Provider Emergency Medicine; PCP Internal Medicine; Visit Provider Internal Medicine
DX: T45.1X5A Adverse effect of antineoplastic and immunosuppressive drugs, initial encounter (principal); C15.5 Malignant neoplasm of lower third of esophagus; Z93.1 Gastrostomy status; E11.65 Type 2 diabetes mellitus with hyperglycemia; E11.40 Type 2 diabetes mellitus with diabetic neuropathy, unspecified; Z79.4 Long term (current) use of insulin; R11.2 Nausea with vomiting, unspecified; E87.1 Hypo-osmolality and hyponatremia; K21.9 Gastro-esophageal reflux disease without esophagitis; R13.10 Dysphagia, unspecified; I10 Essential (primary) hypertension; Z94.0 Kidney transplant status; M48.061 Spinal stenosis, lumbar region without neurogenic claudication; E78.5 Hyperlipidemia, unspecified; I49.9 Cardiac arrhythmia, unspecified; I25.10 Atherosclerotic heart disease of native coronary artery without angina pectoris; Z87.891 Personal history of nicotine dependence; Z79.82 Long term (current) use of aspirin; Z79.899 Other long term (current) drug therapy; Z79.52 Long term (current) use of systemic steroids; Z96.41 Presence of insulin pump (external) (internal)
CPT/HCPCS: 36415; 80053; 82962; 83690; 85025; 96361; 96374; 96375; 96376; 97802; 99221; 99285; J7030; J7050; A4216; G0378; J2405

== ENCOUNTER 2022-10-24 04:41 | Emergency (ER) | payer OTHER, SELFPAY ==
[2022-10-24 04:42] VITALS: BP 125/81; PULSE 69; RESP 18; TEMP 36.7; O2SAT 93; BMI 30.4
--- NOTE | 2022-10-24 04:58 | EX.ED.GUMALE ---
HPI History of Present Illness Chief Complaint: Complaint Detail of Chief Complaint: Unable to urinate. Urinary retention. Informant: patient and spouse/S.O. Pain Onset: Today Context: Gradual Onset Timing: Continuous Current Severity: Moderate Maximum Severity: Moderate Narrative Narrative: 72-year-old male history of esophageal cancer undergoing chemotherapy, diabetes, A-fib and chronic anemia. He is on aspirin only no other blood thinners. States the last time he urinated was morning. He has been unable tonight. Complaining of suprapubic discomfort. Denies any recent dysuria. No gross hematuria. Prior history of urinary retention years ago. He denies any prior prostate or bladder surgery. Prior similar symptoms: Yes Recent Illness/Hospitalization: Yes [facility] Medical History Ambulates with cane Amputation finger Amputation of toe Anemia of chronic disease Atrial fibrillation Diabetes mellitus, type II Dialysis AV fistula malfunction Esophageal cancer Gastric reflux History of steroid therapy HLD (hyperlipidemia) Hypertension Hypertension Insulin dependent diabetes mellitus Wears dentures Wears glasses Wears hearing aid Home Medications metoprolol tartrate 50 mg tablet 50 mg PO BID bp 11/29/12 [History Last Taken 04/25/21 08:00] niacin 250 mg tablet,extended release (Slo-Niacin) 500 mg PO DAILY b vitamin 11/29/12 [History Last Taken 05/18/15 09:00] rosuvastatin 20 mg tablet (Crestor) 20 mg PO QHS hld 11/29/12 [History Last Taken 05/17/15] famotidine 20 mg tablet 20 mg PO QHS GERD 05/11/15 [History Last Taken 05/17/15] mycophenolate mofetil 500 mg tablet (CellCept) 500 mg PO BID transplant kidney 05/11/15 [History Last Taken 04/25/21 08:00] prednisone 2.5 mg tablet 5 mg PO DAILY steriod 05/11/15 [History Last Taken 04/25/21 08:00] tacrolimus 1 mg capsule, immediate-release (Prograf) 1 mg PO BID anit rejection 05/11/15 [History Last Taken 05/18/15 09:00] insulin aspart U-100 100 unit/mL (3 mL) subcutaneous pen (Novolog FlexPen U-100 Insulin aspart) See Protocol subcut CONT DM 02/06/18 [History Last Taken 02/06/18] omeprazole 20 mg tablet,delayed release 20 mg PO DAILY 05/21/22 [History Last Taken Unknown] hydrocodone bitartrate 15 mg capsule, oral only, extended rel 12 hr 15 mg PO Q8 10/16/22 [History Last Taken Unknown] lactose-reduced food with fiber 0.06 gram-1.5 kcal/mL oral liquid (Jevity 1.5 Victorino) 237 ml feeding tube .COMPLEX 10/16/22 [History Last Taken Unknown] metoclopramide HCl 5 mg tablet (Reglan) 5 mg PO Q6H PRN nausea and vomiting #30 tabs 10/17/22 [Rx Last Taken Unknown] ondansetron 8 mg disintegrating tablet 8 mg PO Q8H PRN nausea and vomiting 30 days #30 tabs 10/17/22 [Rx Last Taken Unknown] nystatin 100,000 unit/mL oral suspension 5 ml PO .QID 10/24/22 [History Last Taken Unknown] omeprazole 10 mg capsule,delayed release See Rx Instructions feeding tube DAILY 10/24/22 [History Last Taken Unknown] Allergy/AdvReac Type Severity Reaction Status Date / Time diphenhydramine AdvReac Mild jittery/ Verified 10/24/22 04:48 [From Benadryl] anxious Family History Mother Kidney disease Hypertension High cholesterol Diabetes Father Kidney disease Hypertension High cholesterol Diabetes Surgical History Amputation of foot Hx of kidney transplant Hx of surgical amputation of finger Renal transplant recipient Social History household members: spouse, family and children Smoking Status: Former smoker how long ago did patient quit smoking: Quit~ 50 years prior smoked youth until quit 2 ppd. alcohol intake: former details: Drank heavily in youth, stopped ~ 50 years prior. substance use type: does not use what type of physical activity do you participate in: walking ROS ROS ED ROS Narrative Nausea and vomiting due to chemo. Review of Systems ROS Unobtainable: Denies due to encephalopathy Constitutional Constitutional ED: Denies chills or fever(s) Eyes Eyes: Denies blurry vision ENT ENT ED: Denies ear pain Cardiovascular Cardiovascular: Denies chest pain Respiratory/Chest Respiratory/Chest: Denies cough Gastrointestinal Gastrointestinal: Reports nausea and vomiting; Denies abdominal pain, constipation, diarrhea or melena Genitourinary Genitourinary ED: Denies dysuria or hematuria Musculoskeletal Musculoskeletal: Denies arthralgias Integumentary Denies abscess Neurologic Neurologic: Denies headache(s) Psychiatric Psychiatric: Denies anxiety Endocrine Endocrinology: Denies polydipsia Hematologic/Lymphatic Hematologic/Lymphatic: Denies easy bleeding Allergic/Immunologic Allergic/Immunologic ED: Denies mouth swelling EXAM Physical Exam Narrative Exam Narrative: Well-appearing 72-year-old male. Vital signs are stable afebrile. No distress. H EENT exam unremarkable. Neck nontender. Lungs clear. Heart regular rhythm rate about 70 no murmur. Chest wall nontender. Abdomen soft. Distended bladder but improving. Nurses have already placed a 16 Uzbek Sawant catheter. He has clear yellow urine going into the Sawant catheter bag. No clots. No blood. Moving all 4 extremities. Lower extremities are nontender. No significant edema. He is awake and alert. No focal motor deficits. Const Vital Signs: 10/24/22 04:42 10/24/22 05:18 Temperature 98.0 F Temperature Source Temporal Pulse Rate 69 79 Respiratory Rate 18 18 Blood Pressure 125/81 H 159/62 H Blood Pressure Mean 95 Pulse Ox 93 Oxygen Delivery Method Room Air Positive well nourished and well developed; Negative for cachectic, contractures or unkempt General Appearance ED: well developed and NAD; Negative for unkempt, cachectic, contractures or pallor Nutritional Appearance: Negative for cachectic HEENT Reports moist mucous membranes normocephalic and atraumatic; Negative for trauma or tenderness Eyes PERRL and EOMs intact bilaterally General Eye ED: Negative for pale conjunctiva or scleral icterus Neck no lymphadenopathy, supple and no JVD General: Negative for tenderness Resp normal respiratory effort and clear to auscultation bilaterally Effort and Inspection: Negative for retractions Auscultation: Negative for rales, rhonchi or wheezes Cardio regular rate, regular rhythm, S1 normal heart sound, S2 normal heart sound and no murmurs GI non-tender, non-distended and no masses GI Narrative: Distended bladder resolving after Sawant catheter was placed by RN. Clear yellow urine to the Sawant bag. No blood nor clots. Inspection: Negative for abdominal distention Auscultation: normoactive bowel sounds Palpation: soft; Negative for tender or guarding no CVA tenderness Back/Spine no CVA tenderness Extremity normal to inspection General Extremety ED: Negative for edema or pulses abnormal General Extremity: Negative for edema or pulses abnormal Neuro oriented x3, CN's II-XII intact bilaterally, moves all extremities and no focal motor deficits Sensorium / Orientation: alert, oriented to person, oriented to place and oriented to time; Negative for orientation impaired, confused, lethargic or stuporous Motor Exam: strength 5/5 throughout Psych mental status grossly normal Appearance: Negative for unkempt Attitude: No agitated Mood & Affect: Negative for depressed, anxious or tearful Thought Process: normal thought process Thought Content: normal thought content Skin General Skin Exam: Negative for jaundice or pallor Lesions: no lesions Rashes: no rashes Trauma: Negative for abrasion MDM MDM MDM Narrative Medical decision making narrative: 72-year-old male with acute urinary retention. Nurse placed a 16 Uzbek Sawant catheter without significant difficulty. Clear yellow urine. No blood or clots. Its not cloudy. Urinalysis will be sent. To be discharged to home with a Sawant catheter in place with a leg bag. He drained 1900 cc of clear yellow urine. Patient felt much improved. He will follow-up with Dr. Johnny Ratliff of urology for further evaluation. Patient and are comfortable with the plan. Lab Data Attestation: I reviewed the patient's lab results. Lab results narrative: Urinalysis shows no acute abnormality. No infection. No white or red cells. No nitrates nor bacteria. Labs: Laboratory Results - last 24 hr 10/24/22 05:20 Urine Color Yellow Urine Clarity Clear Urine pH 7.0 Ur Specific [place] 1.010 Urine Protein Negative Urine Glucose (UA) 50 H Urine Ketones Negative Urine Occult Blood Negative Urine Nitrite Negative Urine Bilirubin Negative Urine Urobilinogen 1 H Ur Leukocyte Esterase Negative Urine RBC 0 SEEN Urine WBC 0 SEEN Ur Squamous Epith Cells 0 SEEN Urine Bacteria 0 SEEN Urine Mucus 0 SEEN Discharge Plan Triage Chief Complaint: Complaint ED Provider: Nas Real Dx/Rx/DC Orders Clinical Impression: History of atrial fibrillation, Acute urinary retention, Hx of esophageal malignancy, History of diabetes mellitus Instructions: ED Urinary Retention, Male Prescriptions: No Action niacin [Slo-Niacin] 250 MG tablet extended release 500 mg PO DAILY Hold Instructions: Pt refuses the test Patient Comments: SUPPLEMENT metoprolol tartrate 50 MG tablet 50 mg PO BID Patient Comments: BLOOD PRESSURE rosuvastatin [Crestor] 20 MG tablet 20 mg PO QHS Patient Comments: decrease cholesterol mycophenolate mofetil [CellCept] 500 MG tablet 500 mg PO BID Patient Comments: ANTI-REJECTION MED prednisone 2.5 MG tablet 5 mg PO DAILY Patient Comments: STEROID tacrolimus [Prograf] 1 MG capsule 1 mg PO BID Patient Comments: KIDNEYS famotidine 20 MG tablet 20 mg PO QHS Hold Instructions: per md Patient Comments: GERD insulin aspart U-100 [Novolog FlexPen U-100 Insulin] 100 UNITS/ML insulin pen See Protocol subcut CONT Protocol: 6. Sliding Scale Insulin Custom Condition: mg/dl range Dose/Route: Number of Units Instruction: using insulin pump Protocol Text: Custom Sliding Scale Rx Instructions: insulin pump omeprazole 20 mg Tablet,Delayed Release (Dr/Ec) 20 mg PO DAILY hydrocodone bitartrate 15 mg capsule, oral only, ER 12hr 15 mg PO Q8 Jevity 1.5 Victorino 0.06 gram-1.5 kcal/mL liquid 237 ml feeding tube .COMPLEX Rx Instructions: 237 mL via feeding tube 0900,1200,1500,1800,2100; ondansetron 8 mg tablet,disintegrating 8 mg PO Q8H PRN (Reason: nausea and vomiting) 30 Days Qty: 30 0RF metoclopramide HCl [Reglan] 5 mg tablet 5 mg PO Q6H PRN (Reason: nausea and vomiting) Qty: 30 0RF nystatin 100,000 unit/mL suspension 5 ml PO .QID Rx Instructions: swish and swallow omeprazole 10 mg capsule,delayed release(DR/EC) See Rx Instructions feeding tube DAILY Rx Instructions: 10ML via feeding tube daily; Primary Care Provider: Mikayla Lopez Referrals: Rambo Ratliff MD [Med Staff - Active Staff] - 3-5 Days Mikayla Lopez MD [Primary Care Provider] - Activity Restrictions/Additional Instructions: Call and follow-up with the urologist Dr. Johnny Ratliff. Call his office for an appointment to be seen early next week. They will most likely remove the Sawant catheter and see how you urinating. They may want to start you on a medication called Flomax. Plenty of fluids and rest. If the catheter stops working return for us to evaluate. Empty it whenever its almost full. Disposition Disposition: Home, Self Care Discharge Date/Time: 10/24/22 05:19
[2022-10-24 05:18] VITALS: BP 159/62; PULSE 79; RESP 18
[2022-10-24 05:29] LABS: Bacteria 0 SEEN /hpf (None Seen); Mucous, Urine 0 SEEN /hpf (<or=2+); Red Blood Cells-Urine 0 SEEN /hpf (0-5); Squamous Epithelial Cells - UA 0 SEEN /hpf (0-5); White Blood Cells 0 SEEN /hpf (0-5)
[2022-10-24 05:31] LABS: Color, Urine Yellow (Yellow); Glucose, Dipstick 50 mg/dl (Normal); Ketone-Dipstick Negative (Negative); Leukocyte Esterase-Dipstick Negative /ul (Negative); Nitrite-Dipstick Negative (Negative); Occult Blood-Urine Negative /ul (Negative); Protein-Dipstick Negative (Negative); Urine Bilirubin Dipstick Negative (Negative); Urine Clarity Clear (Clear); Urine Urobilinogen 1 mg/dl (Normal)
== END 2022-10-24 05:19 | disposition home or self-care (01) ==
PROVIDERS: Emergency Provider Emergency Medicine; PCP Internal Medicine; Visit Provider Emergency Medicine
DX: R33.9 Retention of urine, unspecified (principal); I48.91 Unspecified atrial fibrillation; E11.9 Type 2 diabetes mellitus without complications; I10 Essential (primary) hypertension; E78.5 Hyperlipidemia, unspecified; K21.9 Gastro-esophageal reflux disease without esophagitis; Z87.891 Personal history of nicotine dependence; Z79.899 Other long term (current) drug therapy
CPT/HCPCS: 51702; 81001; 99283

== ENCOUNTER 2022-11-26 21:37 | Inpatient (IN) | payer OTHER, SELFPAY ==
[2022-11-26] VITALS (8 sets, daily range): BP systolic 96–174; BP diastolic 65–141; PULSE 126–169; RESP 15–178; TEMP 37; O2SAT 90–92; BMI 28.8
--- NOTE | 2022-11-26 21:51 | ED.VIS.CHEST ---
HPI History of Present Illness Chief Complaint: Chest Pain Informant: patient Onset/Context/Timing Onset: Today Activity at onset: sudden and light activity Timing: Continuous Quality: Positive for Heaviness and Tightness Location: Substernal Worsened By: Nothing Relieved By: Nothing Associated Symptoms: Positive for Dyspnea, Lightheadedness and Palpitations; Negative for Nausea, Vomiting, Diaphoresis, Cough, Fever or Acid Reflux Narrative Narrative: Patient presents with chest pain that began today. Patient states he was doing some work around his house and was sitting down. Patient states he bent forward to nails and trimmed to a floorboard and he noted some pain in his chest. Patient states it has been constant since that time. Patient describes it as heaviness and tightness. Patient states it is over the substernal area. Patient states it started on the right side of his chest but now is in the substernal area. Patient states nothing makes it better nothing makes it worse. Patient admits to some shortness of breath. Patient also admits to some lightheadedness and palpitations where he feels like his heart is racing. Patient has a history of esophageal cancer and recent surgery for a med port placement. Patient states he has had diarrhea for the past 4 days. Patient states he started taking Imodium today for the diarrhea just before the palpitations started. [facility] Medical History Ambulates with cane Amputation finger Amputation of toe Anemia of chronic disease Atrial fibrillation Chemotherapy adverse reaction Diabetes mellitus, type II Dialysis AV fistula malfunction Esophageal cancer Esophageal cancer Gastric reflux History of steroid therapy HLD (hyperlipidemia) Hyperglycemia due to diabetes mellitus Hypertension Hypertension Hyponatremia Insulin dependent diabetes mellitus Wears dentures Wears glasses Wears hearing aid Home Medications metoprolol tartrate 50 mg tablet 50 mg PO BID bp 11/29/12 [History Last Taken 04/25/21 08:00] niacin 250 mg tablet,extended release (Slo-Niacin) 500 mg PO DAILY b vitamin 11/29/12 [History Last Taken 05/18/15 09:00] rosuvastatin 20 mg tablet (Crestor) 20 mg PO QHS hld 11/29/12 [History Last Taken 05/17/15] famotidine 20 mg tablet 20 mg PO QHS GERD 05/11/15 [History Last Taken 05/17/15] mycophenolate mofetil 500 mg tablet (CellCept) 500 mg PO BID transplant kidney 05/11/15 [History Last Taken 04/25/21 08:00] prednisone 2.5 mg tablet 5 mg PO DAILY steriod 05/11/15 [History Last Taken 04/25/21 08:00] tacrolimus 1 mg capsule, immediate-release (Prograf) 1 mg PO BID anit rejection 05/11/15 [History Last Taken 05/18/15 09:00] insulin aspart U-100 100 unit/mL (3 mL) subcutaneous pen (Novolog FlexPen U-100 Insulin aspart) See Protocol subcut CONT DM 02/06/18 [History Last Taken 02/06/18] omeprazole 20 mg tablet,delayed release 20 mg PO DAILY 05/21/22 [History Last Taken Unknown] hydrocodone bitartrate 15 mg capsule, oral only, extended rel 12 hr 15 mg PO Q8 10/16/22 [History Last Taken Unknown] lactose-reduced food with fiber 0.06 gram-1.5 kcal/mL oral liquid (Jevity 1.5 Victorino) 237 ml feeding tube .COMPLEX 10/16/22 [History Last Taken Unknown] ondansetron 8 mg disintegrating tablet 8 mg PO Q8H PRN nausea and vomiting 30 days #30 tabs 10/17/22 [Rx Last Taken Unknown] nystatin 100,000 unit/mL oral suspension 5 ml PO .QID 10/24/22 [History Last Taken Unknown] omeprazole 10 mg capsule,delayed release See Rx Instructions feeding tube DAILY 10/24/22 [History Last Taken Unknown] sulfamethoxazole-trimethoprim 1 tab PO DAILY antibiotic 11/26/22 [History Last Taken Unknown] Allergy/AdvReac Type Severity Reaction Status Date / Time diphenhydramine AdvReac Mild jittery/ Verified 10/24/22 04:48 [From Benadryl] anxious Family History Mother Kidney disease Hypertension High cholesterol Diabetes Father Kidney disease Hypertension High cholesterol Diabetes Surgical History Amputation of foot Hx of kidney transplant Hx of surgical amputation of finger Renal transplant recipient Renal transplant recipient Social History household members: spouse, family and children Smoking Status: Former smoker how long ago did patient quit smoking: Quit~ 50 years prior smoked youth until quit 2 ppd. alcohol intake: former details: Drank heavily in youth, stopped ~ 50 years prior. substance use type: does not use what type of physical activity do you participate in: walking ROS ROS ED Constitutional Constitutional ED: Denies chills or fever(s) Eyes Eyes: Denies blurry vision or change in vision ENT ENT ED: Denies rhinorrhea or sore throat Cardiovascular Cardiovascular: Reports chest pain and palpitations Respiratory/Chest Respiratory/Chest: Reports dyspnea; Denies cough Gastrointestinal Gastrointestinal: Reports diarrhea; Denies abdominal pain, nausea or vomiting Genitourinary Genitourinary ED: Denies dysuria or hematuria Musculoskeletal Musculoskeletal: Denies back pain or neck pain Integumentary Denies abscess or rash Neurologic Neurologic: Denies headache(s) or weakness Allergic/Immunologic Allergic/Immunologic ED: Denies mouth swelling or urticaria EXAM Physical Exam Const Vital Signs: 11/26/22 21:38 11/26/22 21:43 11/26/22 21:43 Temperature 98.6 F Temperature Source Oral Pulse Rate 169 H 149 H Respiratory Rate 20 H 19 H Respiratory Effort Short of Breath Blood Pressure 154/141 H 174/134 H Blood Pressure Mean 145 147 Blood Pressure Source Pulse Ox 90 92 Oxygen Delivery Method Room Air Room Air Oxygen Flow Rate (L/min) 11/26/22 21:51 11/26/22 22:05 11/26/22 22:22 Temperature 98.6 F Temperature Source Temporal Pulse Rate 147 H 141 H Respiratory Rate 17 178 H 22 H Respiratory Effort Blood Pressure 137/98 H 174/134 H 140/109 H Blood Pressure Mean 111 147 119 Blood Pressure Source Monitor Pulse Ox 91 90 Oxygen Delivery Method Room Air Room Air Oxygen Flow Rate (L/min) 11/26/22 23:01 11/26/22 23:00 11/26/22 23:35 Temperature Temperature Source Pulse Rate 130 H 126 H 140 H Respiratory Rate 15 15 25 H Respiratory Effort Blood Pressure 105/67 96/70 114/65 Blood Pressure Mean 79 78 81 Blood Pressure Source Monitor Monitor Pulse Ox 92 Oxygen Delivery Method Room Air Oxygen Flow Rate (L/min) 11/27/22 00:02 11/27/22 00:03 11/27/22 00:12 Temperature Temperature Source Pulse Rate 124 H 130 H 131 H Respiratory Rate 21 H 18 15 Respiratory Effort Blood Pressure 94/45 L 78/50 L 93/63 Blood Pressure Mean 61 59 73 Blood Pressure Source Monitor Pulse Ox 95 93 Oxygen Delivery Method Nasal Cannula Airvo Oxygen Flow Rate (L/min) 2 2 Positive well nourished and well developed General Appearance ED: well developed and NAD HEENT normocephalic and atraumatic Eyes PERRL and EOMs intact bilaterally Neck supple and no JVD Chest Wall palpation of chest normal Resp normal respiratory effort and clear to auscultation bilaterally Effort and Inspection: Negative for respiratory distress Cardio regular rate and regular rhythm GI normal to inspection, nondistended, normoactive bowel sounds, soft to palpation, non-tender and non-distended Extremity normal to inspection General Extremety ED: Negative for edema or tenderness General Extremity: Negative for edema Neuro oriented x3, CN's II-XII intact bilaterally and no sensory deficits noted Sensorium / Orientation: awake and alert Motor Exam: strength 5/5 throughout Psych mental status grossly normal Heart Score History: Moderately Suspicious ECG: Nonspecific Repolarization Age: >/= 65 years Risk Factors: >/= 3 Risk Factors or History of CAD Score: 6 MDM MDM MDM Narrative Medical decision making narrative: Differential diagnosis includes cardiac dysrhythmia, cardiac ischemia, pulmonary embolism, pneumonia, pneumothorax, aspiration, electrolyte abnormality. EKG will be obtained to assess for cardiac dysrhythmia and cardiac ischemia. CTA of the chest will be obtained to assess for pulmonary embolism, pneumonia, and pneumothorax. CBC will be obtained to assess for leukocytosis and anemia. Basic metabolic profile will be obtained to assess for electrolyte abnormality and renal function. PT with INR and PTT will be obtained to assess for coagulopathy. High-sensitivity troponin will be obtained to assess for cardiac ischemia. 2-hour repeat high-sensitivity troponin will be obtained to assess for ongoing cardiac ischemia. History & Record Review Additional record(s) reviewed:: Prior labs Lab Data Attestation: I reviewed the patient's lab results. Lab results narrative: CBC was reviewed. There is anemia with a hemoglobin of 8.4 and hematocrit 26.5. Platelets were slightly low at 99. PT with INR and PTT were reviewed. Pro time was 15.9 and INR is 1.3. PTT was 58.1. Basic metabolic profile was reviewed. Potassium was slightly low at 3.3. Chloride was 111. CO2 was 20. Anion gap was normal at 6. Glucose was slightly elevated at 206. Calcium was low at 5.7. High-sensitivity troponin was reviewed and was normal at 36. Labs: Laboratory Results - last 24 hr 11/26/22 21:50 WBC 6.1 RBC 3.18 L Hgb 8.4 L Hct 26.5 L MCV 83.3 MCH 26.4 L MCHC 31.7 L RDW Std Deviation 48.4 H RDW Coeff of Ayaka 15.9 H Plt Count 99 L MPV 10.9 Immature Gran % (Auto) 1.000 H Neut % (Auto) 80.9 H Lymph % (Auto) 9.4 L Mora % (Auto) 7.7 Eos % (Auto) 0.8 Baso % (Auto) 0.2 Absolute Neuts (auto) 4.9 Absolute Lymphs (auto) 0.57 L Nucleated RBC % 0 Differential Comment SCANNED PT 15.9 H INR 1.3 APTT 58.1 H Sodium 137 Potassium 3.3 L Chloride 111 H Carbon Dioxide 20.0 L Anion Gap 6 BUN 16 Creatinine 0.56 L Estim Creat Clear Calc 70.97 Est GFR (MDRD) Af Amer 185 Est GFR (MDRD) Non-Af 153 BUN/Creatinine Ratio 28.6 H Glucose 206 H Calcium 5.7 L* Magnesium 1.4 L Troponin I High Sens 36 Radiography Diagnostic Testing: Clinical Impression(s) from Imaging Studies Chest CTA 11/26/22 21:58 IMPRESSION: CTA chest examination, without a demonstrated pulmonary embolism or arterial dissection. Esophageal mass. Distention of the proximal esophagus. Bilateral infiltrates. Left lower lobe nodule suggesting metastatic disease. Right adrenal mass. Electronically Signed: Junior Durand MD at 23:32 EDT , CTA of the chest was obtained. There is no pulmonary embolism or aortic dissection. There is an esophageal mass with distention of the proximal esophagus. There are bilateral infiltrates. There is a left lower lobe nodule suggesting metastatic disease. There is also a right adrenal mass. This was interpreted by the radiologist and was also independently reviewed by myself. EKG Initial EKG: Interpretation: Atrial Fibrillation (159) and Non-Specific ST Changes Comments: EKG was obtained. On my independent interpretation, it shows atrial fibrillation with a rate of 159. QRS interval was normal at 80 ms. QTc interval was slightly prolonged at 481 ms. There is left axis deviation at -68. There are nonspecific ST-T wave changes which are likely related to the rate. Prior EKG tracings: available for review Prior: Changed (Compared to previous EKG dated 05/21/2022, the atrial fibrillation is new.) Management Discussion w/another healthcare provider: Hospitalist and [employer] Mixer Operator (Dr. Anthony and Dr. Mendosa) Treatment and Re-Evaluation :: Patient was given IV fluids. Patient was given a bolus of Cardizem and was started on a Cardizem drip. Patient's heart rate remained in the 130s. Case was discussed with Dr. Anthony. He recommended obtaining a magnesium level. This was ordered. Case was discussed with Dr. Mendosa. He recommended adding a beta-ginette. This was ordered. Patient's blood pressure did drop after titrating the Cardizem drip. Patient was given a repeat bolus of normal saline. Case was discussed with the hospitalist. He wanted me to contact cardiology again to discuss if the patient would be better on amiodarone or digoxin instead of the beta-ginette. Case was discussed with Dr. Mendosa. He stated that we could start either amiodarone or digoxin and that he has not seen the patient and has no further recommendations. Patient was given a dose of magnesium here. Patient was also given a dose of oral potassium through his G-tube. Patient was started on amiodarone drip. Patient will be admitted to PCU stepdown. Critical Care Time Critical Care Time: Yes Critical care time (excluding procedures): 30-74 minutes (34), Including time spent:, Discussing w/Patient &/or Family/Book Binder, Discussing w/Consultants, Arranging Admission or Transfer and Performing Direct Patient Care at Bedside Discharge Plan Dx/Rx/DC Orders Clinical Impression: Atrial fibrillation with rapid ventricular response, Diabetes mellitus, type II, Diarrhea, Esophageal cancer, Anemia Disposition Disposition: [facility]
--- NOTE | 2022-11-26 21:58 | CT_ITS ---
STUDY: CTA CHEST REASON FOR EXAM: Male, 72 years old. Chest pain RADIATION DOSAGE (If Supplied By Facility): CTDIvol = ( 11.42 ) mGy, DLP = ( 464.99 ) mGycm TECHNIQUE: The examination was performed with the intravenous administration of IV 100mL [id number]-370. Post-processing of the angiographic images was performed, with multiplanar reformation and 3D reconstruction. Individualized dose optimization techniques were used for this CT. COMPARISON: May 23, 2022 FINDINGS: Port on the left extends to the superior vena cava Normal enhancement of the main pulmonary artery and right and left pulmonary arteries. Normal enhancement of the bilateral peripheral pulmonary arteries. There is no demonstrated pulmonary embolism. Normal thoracic aorta and visualized great vessels. There is no demonstrated aortic dissection. There are calcifications of the coronary arteries. There is distention of the proximal esophagus with 4.3 cm soft tissue mass in the mid esophagus. Normal hilar regions. Normal visualized trachea and bronchi. The lungs are well expanded. There are patchy right mid and bilateral lower lung airspace increased opacities. There is 1.1 cm left lower lobe nodule. Normal pleura. Normal chest wall structures. There are healed rib fractures. There is a 3.0 cm right adrenal mass. There is atrophy of the kidneys. CT/CTA Chest W/WO Contrast IMPRESSION: CTA chest examination, without a demonstrated pulmonary embolism or arterial dissection. Esophageal mass. Distention of the proximal esophagus. Bilateral infiltrates. Left lower lobe nodule suggesting metastatic disease. Right adrenal mass. Electronically Signed: Junior Durand MD at 23:32 EDT ,
[2022-11-26] MEDS: 0.9% Normal Saline (1000mL) 1,000 ML 1000 ML IV (22:07)
[2022-11-26] MEDS: dilTIAZem 25 MG/5 ML Vial IV BOLUS (22:07)
[2022-11-26 22:13] LABS: Absolute Lymphocyte Count 0.57 X10^3/uL (0.83-4.51); Absolute Neutrophil Count 4.9 X10^3/uL (2.0-7.7); Basophil# 0.01 X10^3/uL; Basophil% 0.2 % (0-1); Eosinophil# 0.05 X10^3/uL; Eosinophils% 0.8 % (0-5); Hematocrit 26.5 % (40-54); Hemoglobin 8.4 g/dL (13.0-16.5); Lymphocyte # 0.57 X10^3/ul (0.83-4.51); Lymphocyte % 9.4 % (19-41); Mean Corp Hgb Conc 31.7 g/dL (32-36); Mean Corpuscular Hgb 26.4 pg (27.0-32.0); Mean Corpuscular Volume 83.3 fL (80-94); Mean Platelet Vol. 10.9 fl (6.2-12.0); Monocyte# 0.47 X10^3/uL; Monocyte% 7.7 % (0-10); NRBC Flagged by Analyzer 0 % (0-5); Neutrophil # 4.92 X10^3/uL (2.7-7.7); Neutrophil % 80.9 % (47-70); POSITIVE COUNT YES; POSITIVE DIFFERENTIAL YES; Platelet Count 99 K/mm3 (150-450); RBC Distribution Width CV 15.9 % (11.6-14.6); RBC Distribution Width SD 48.4 fl (35.1-43.9); Red Blood Count 3.18 M/mm3 (4.6-6.2); White Blood Count 6.1 K/mm3 (4.4-11.0)
[2022-11-26 22:21] LABS: Differential Indicated SCAN CRITERIA MET
[2022-11-26 22:22] LABS: International Normalized Ratio 1.3; Prothrombin Time (Protime)PT. 15.9 SECONDS (11.7-14.9)
[2022-11-26] MEDS: Diltiazem 125 MG in Dextrose 5%-Water (100mL Bag) 100 ML CONT INF (22:22)
[2022-11-26 22:24] LABS: Partial Thromboplast Time 58.1 Seconds (24.1-36.2)
[2022-11-26 22:37] LABS: Anion Gap 6 (5-15); BUN 16 mg/dL (7-18); BUN/Creat Ratio 28.6 RATIO (10-20); Calcium,Total 5.7 mg/dL (8.5-10.1); Chloride 111 mmol/L (98-107); Creatinine, Serum 0.56 mg/dL (0.70-1.30); EST Glomerular Filtration Rate 153 mL/min (>60); Est Glom Filt Rate - Afr Amer 185 mL/min (>60); Estimated Creatinine Clearance 70.97 ml/min; Glucose 206 mg/dL (74-106); Potassium 3.3 mmol/L (3.5-5.1); Sodium Level 137 mmol/L (136-145); Troponin-I HS (w/2H Reflex) 36 pg/mL (3.0-78.0)
[2022-11-26 23:08] LABS: Differential Comment SCANNED
[2022-11-27] VITALS (21 sets, daily range): BP systolic 78–155; BP diastolic 45–79; PULSE 76–131; RESP 14–21; TEMP 36.1–37.1; O2SAT 93–97; BMI 28.6
[2022-11-27 00:08] LABS: Reflex Troponin-HS? (from REC) Y
[2022-11-27 00:10] LABS: Magnesium 1.4 mg/dL (1.6-2.6)
[2022-11-27] MEDS: 0.9% Normal Saline (1000mL) 1,000 ML 1000 ML IV (00:10)
--- NOTE | 2022-11-27 00:35 | HP.PCM.HOS_ITS ---
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 Patient was doing some woodwork when he bent over then he experienced the chest pain. He reports that he blacking out and almost passed out. Associated with his symptoms and was some shortness of breath. He has chronic nausea and spitting with his esophageal cancer. He is unable to swallow secondary to his esophageal cancer. He denied any vomiting. He described chest pain as in between sharp and dull. The chest pain which is right-sided radiated to the center of his chest. His symptoms improved at the emergency department. At the emergency department he was found to be in A-fib with RVR with rates as high as 159. He was started on Cardizem drip. At that point he became hypotensive. Cardizem drip was de-escalated and he received IV fluids. His chest pain decreased to about a 2 at the emergency department. He thinks treatment at the emergency department might of hold his chest pain to improve. Of note patient has diarrhea. His diarrhea started about 4 days before presentation. 3 days before presentation his diarrhea stopped and began again the next day. Patient oncologist had him on Imodium. Patient/family was wo ndering whether his presenting symptoms was secondary Imodium. He reports a one-time episode of A-fib but at that time his symptoms were different. Reportedly at that time he did not have any symptoms except that his pulse could not be felt. He is not on chronic anticoagulation. [facility] Medical History Ambulates with cane Amputation finger Amputation of toe Anemia of chronic disease Atrial fibrillation Chemotherapy adverse reaction Diabetes mellitus, type II Dialysis AV fistula malfunction Esophageal cancer Esophageal cancer Gastric reflux History of steroid therapy HLD (hyperlipidemia) Hyperglycemia due to diabetes mellitus Hypertension Hypertension Hyponatremia Insulin dependent diabetes mellitus Wears dentures Wears glasses Wears hearing aid Home Medications metoprolol tartrate 50 mg tablet 50 mg PO BID bp 11/29/12 [History Last Taken 04/25/21 08:00] niacin 250 mg tablet,extended release (Slo-Niacin) 500 mg PO DAILY b vitamin 11/29/12 [History Last Taken 05/18/15 09:00] rosuvastatin 20 mg tablet (Crestor) 20 mg PO QHS hld 11/29/12 [History Last Taken 05/17/15] famotidine 20 mg tablet 20 mg PO QHS GERD 05/11/15 [History Last Taken 05/17/15] mycophenolate mofetil 500 mg tablet (CellCept) 500 mg PO BID transplant kidney 05/11/15 [History Last Taken 04/25/21 08:00] prednisone 2.5 mg tablet 5 mg PO DAILY steriod 05/11/15 [History Last Taken 04/25/21 08:00] tacrolimus 1 mg capsule, immediate-release (Prograf) 1 mg PO BID anit rejection 05/11/15 [History Last Taken 05/18/15 09:00] insulin aspart U-100 100 unit/mL (3 mL) subcutaneous pen (Novolog FlexPen U-100 Insulin aspart) See Protocol subcut CONT DM 02/06/18 [History Last Taken 02/06/18] omeprazole 20 mg tablet,delayed release 20 mg PO DAILY 05/21/22 [History Last Taken Unknown] hydrocodone bitartrate 15 mg capsule, oral only, extended rel 12 hr 15 mg PO Q8 10/16/22 [History Last Taken Unknown] lactose-reduced food with fiber 0.06 gram-1.5 kcal/mL oral liquid (Jevity 1.5 Victorino) 237 ml feeding tube .COMPLEX 10/16/22 [History Last Taken Unknown] ondansetron 8 mg disintegrating tablet 8 mg PO Q8H PRN nausea and vomiting 30 days #30 tabs 10/17/22 [Rx Last Taken Unknown] nystatin 100,000 unit/mL oral suspension 5 ml PO .QID 10/24/22 [History Last Taken Unknown] omeprazole 10 mg capsule,delayed release See Rx Instructions feeding tube DAILY 10/24/22 [History Last Taken Unknown] sulfamethoxazole-trimethoprim 1 tab PO DAILY antibiotic 11/26/22 [History Last Taken Unknown] Allergy/AdvReac Type Severity Reaction Status Date / Time diphenhydramine AdvReac Mild jittery/ Verified 10/24/22 04:48 [From Benadryl] anxious Family History Mother Kidney disease Hypertension High cholesterol Diabetes Father Kidney disease Hypertension High cholesterol Diabetes Surgical History Amputation of foot Hx of kidney transplant Hx of surgical amputation of finger Renal transplant recipient Renal transplant recipient Social History household members: spouse, family and children Smoking Status: Former smoker how long ago did patient quit smoking: Quit~ 50 years prior smoked youth until quit 2 ppd. alcohol intake: former details: Drank heavily in youth, stopped ~ 50 years prior. substance use type: does not use what type of physical activity do you participate in: walking ROS ROS Narrative Pertinent positives and pertinent negatives as noted in HPI. All other systems were reviewed and are negative Vital Signs Vital Signs Vital Signs: 11/26/22 21:38 11/26/22 21:43 11/26/22 21:43 Temperature 98.6 F Temperature Source Oral Pulse Rate 169 H 149 H Respiratory Rate 20 H 19 H Respiratory Effort Short of Breath Blood Pressure 154/141 H 174/134 H Blood Pressure Mean 145 147 Blood Pressure Source Pulse Ox 90 92 Oxygen Delivery Method Room Air Room Air Oxygen Flow Rate (L/min) 11/26/22 21:51 11/26/22 22:05 11/26/22 22:22 Temperature 98.6 F Temperature Source Temporal Pulse Rate 147 H 141 H Respiratory Rate 17 178 H 22 H Respiratory Effort Blood Pressure 137/98 H 174/134 H 140/109 H Blood Pressure Mean 111 147 119 Blood Pressure Source Monitor Pulse Ox 91 90 Oxygen Delivery Method Room Air Room Air Oxygen Flow Rate (L/min) 11/26/22 23:01 11/26/22 23:00 11/26/22 23:35 Temperature Temperature Source Pulse Rate 130 H 126 H 140 H Respiratory Rate 15 15 25 H Respiratory Effort Blood Pressure 105/67 96/70 114/65 Blood Pressure Mean 79 78 81 Blood Pressure Source Monitor Monitor Pulse Ox 92 Oxygen Delivery Method Room Air Oxygen Flow Rate (L/min) 11/27/22 00:02 11/27/22 00:03 11/27/22 00:12 Temperature Temperature Source Pulse Rate 124 H 130 H 131 H Respiratory Rate 21 H 18 15 Respiratory Effort Blood Pressure 94/45 L 78/50 L 93/63 Blood Pressure Mean 61 59 73 Blood Pressure Source Monitor Pulse Ox 95 93 Oxygen Delivery Method Nasal Cannula Airvo Oxygen Flow Rate (L/min) 2 2 Weight Weight: 91.1 kg Body Mass Index (BMI) 28.8 Physical Exam Narrative Physical exam: General: Patient in ED bed and spitting into emesis bag repeatedly. Multiple times. Head: Normocephalic, atraumatic, no tenderness Eyes: Vision is grossly intact. EOMI ENT, no trauma, moist mucous membranes, no rhinorrhea Neck: Nontender, No thyromegaly. CVS: Tachycardia, irregularly irregular rate and rhythm.. S1-S2 present. No murmur, gallop or rub. Respiratory : clear to auscultation bilaterally, chest wall nontender Abdomen: PEG tube in place. Soft, nontender, nondistended, normal bowel sounds, no masses : Deferred Back: Nontender, no CVA tenderness, no midline spinal tenderness, deformities, step-offs Extremities: Nontender full range of motion, mid foot amputation of right foot. Loss of part of digits of third and fourth fingers of the left hand. Skin: Normal color, no trauma, abrasions Neuro: Alert, oriented, cranial nerves II through XII grossly intact. Psychiatry: Normal mood. Normal affect. Not depressed. Not anxious Results Lab / Micro Data 11/26/22 21:50 11/26/22 21:50 Labs: Laboratory Results - last 24 hr 11/26/22 21:50: WBC 6.1, RBC 3.18 L, Hgb 8.4 L, Hct 26.5 L, MCV 83.3, MCH 26.4 L , MCHC 31.7 L, RDW Std Deviation 48.4 H, RDW Coeff of Ayaka 15.9 H, Plt Count 99 L , MPV 10.9, Immature Gran % (Auto) 1.000 H, Neut % (Auto) 80.9 H, Lymph % (Auto) 9.4 L, [place] % (Auto) 7.7, Eos % (Auto) 0.8, Baso % (Auto) 0.2, Absolute Neuts (auto) 4.9, Absolute Lymphs (auto) 0.57 L, Nucleated RBC % 0, Differential Comment SCANNED, PT 15.9 H, INR 1.3, APTT 58.1 H, Sodium 137, Potassium 3.3 L, Chloride 111 H, Carbon Dioxide 20.0 L, Anion Gap 6, BUN 16, Creatinine 0.56 L, Estim Creat Clear Calc 70.97, Est GFR (MDRD) Af Amer 185, Est GFR (MDRD) Non-Af 153, BUN/Creatinine Ratio 28.6 H, Glucose 206 H, Calcium 5.7 L*, Magnesium 1.4 L , Troponin I High Sens 36 Radiology Impression Chest CTA 11/26/22 21:58 IMPRESSION: CTA chest examination, without a demonstrated pulmonary embolism or arterial dissection. Esophageal mass. Distention of the proximal esophagus. Bilateral infiltrates. Left lower lobe nodule suggesting metastatic disease. Right adrenal mass. Electronically Signed: Junior Durand MD at 23:32 EDT , Assessment & Plan Assessment/Plan (1) Atrial fibrillation with rapid ventricular response: (2) Esophageal cancer: QUALIFIERS: Malignant neoplasm of esophagus location: unspecified location Qualified Code(s): C15.9 - Malignant neoplasm of esophagus, unspecified PLAN: Plan A-fib with RVR Due to initially uncontrolled A-fib placed on stepdown. Amiodarone was initially ordered but stopped even before it was started because his rate became controlled on Cardizem. Cardizem drip started emergency department continued. Serial cardiac enzymes Obtain echo [id number] score elevated. Heparin drip ordered. Of note patient reported that patient bleed peripherally to his extremities but upon discussing all risk and benefits family agreed that heparin be started Home metoprolol continued. Radiologist impression of chest CTA: No pulmonary embolism or acute dissection. Esophageal mass. Distention of the proximal esophagus. Bilateral infiltrates. Left lower lobe nodule with metastatic disease. Right adrenal mass. Chest CTA interpretation by hospitalist: Agrees with radiology interpretation. Consult [facility] Recheck the labs in the a.m. including TSH Hypomagnesemia On presentation magnesium level was 1.4. Replaced in the ED. Trend. Hypokalemia Potassium 3.3 on presentation. Replaced in the ED. Trend. Hypocalcemia We will check ionized calcium and albumin. Diarrhea Stool studies ordered. Occult stools ordered. Diabetes mellitus Patient with hyperglycemia on presentation Home insulin pump continued. Monitor Accu-Cheks Correction scale insulin ordered. History of kidney transplant/CKD stage II Stable Transplant regimen continued. Trend. History of esophageal cancer Persistent with metastasis DVT Prophylaxis: Not indicated since patient to be started on heparin drip for A-fib. Time spent in the patient's overall evaluation,decision-making process, review o f diagnostic data, adjustment of management, discussion with other providers, nursing nursing and ancillary staff involved in patient's care documentation, 70 minutes. Charges/Coding Visit Charges Inpatient E&M: 46159 Init Hosp L3
[2022-11-27] MEDS: Potassium Chloride Oral Soln 20 MEQ/15 ML UDC 40 MEQ GT (00:40)
[2022-11-27 00:47] LABS: Albumin, Serum 2.1 g/dL (3.2-5.0)
[2022-11-27 01:10] LABS: Troponin-I HS 1600 pg/mL (3.0-78.0)
[2022-11-27] MEDS: Magnesium Sulfate 2 GM in Dextrose 5%-Water (100mL Bag) 100 ML IV (01:22)
--- NOTE | 2022-11-27 03:05 | NURSING ---
Notified Dr sahni regarding rhythm sinus rhythm on ekg. Orders received
[2022-11-27 03:10] LABS: Bedside Glucose 104 mg/dL (74-106)
[2022-11-27] MEDS: Metoprolol Tartrate 25 MG Tablet 12.5 MG GT (03:35)
[2022-11-27 04:08] LABS: Absolute Lymphocyte Count 0.51 X10^3/uL (0.83-4.51); Absolute Neutrophil Count 4.1 X10^3/uL (2.0-7.7); Basophil# 0.02 X10^3/uL; Basophil% 0.4 % (0-1); Eosinophil# 0.09 X10^3/uL; Eosinophils% 1.7 % (0-5); Hematocrit 29.4 % (40-54); Hemoglobin 9.1 g/dL (13.0-16.5); Lymphocyte # 0.51 X10^3/ul (0.83-4.51); Lymphocyte % 9.6 % (19-41); Mean Corpuscular Hgb 26.2 pg (27.0-32.0); Mean Corpuscular Volume 84.7 fL (80-94); Mean Platelet Vol. 10.3 fl (6.2-12.0); Monocyte# 0.48 X10^3/uL; NRBC Flagged by Analyzer 0 % (0-5); Neutrophil # 4.12 X10^3/uL (2.7-7.7); Neutrophil % 77.6 % (47-70); POSITIVE DIFFERENTIAL YES; Platelet Count 126 K/mm3 (150-450); RBC Distribution Width CV 16.4 % (11.6-14.6); RBC Distribution Width SD 49.9 fl (35.1-43.9); Red Blood Count 3.47 M/mm3 (4.6-6.2); White Blood Count 5.3 K/mm3 (4.4-11.0)
[2022-11-27 04:21] LABS: Differential Indicated SCAN CRITERIA MET
[2022-11-27 04:26] LABS: Vitamin B12 832 pg/mL (211-911)
[2022-11-27 04:33] LABS: Troponin-I HS 7971 pg/mL (3.0-78.0)
[2022-11-27 04:44] LABS: Differential Comment SCANNED
[2022-11-27 05:02] LABS: Anion Gap 3 (5-15); BUN 16 mg/dL (7-18); BUN/Creat Ratio 20.8 RATIO (10-20); Calcium,Total 8.4 mg/dL (8.5-10.1); Chloride 106 mmol/L (98-107); Creatinine, Serum 0.77 mg/dL (0.70-1.30); EST Glomerular Filtration Rate 106 mL/min (>60); Est Glom Filt Rate - Afr Amer 129 mL/min (>60); Estimated Creatinine Clearance 70.97 ml/min; Glucose 101 mg/dL (74-106); Iron 13 ug/dL (65-175); Iron Binding Capacity,Total 266 ug/dL (250-450); LDH 232 U/L (87-241); PERCENT IRON SATURATION 4.9 % (15.0-55.0); Potassium 4.2 mmol/L (3.5-5.1); Sodium Level 137 mmol/L (136-145); Thyroid Stim Hormone (TSH) 1.02 uIU/mL (0.358-3.74)
[2022-11-27] MEDS: Aspirin 81 MG TAB.CHEW 162 MG GT (05:41)
[2022-11-27] MEDS: HEPARIN/D5w 25,000 UNITS 25,000 UNITS/250 ML IV.SOLN. 10 UNITS CONT INF (05:42)
[2022-11-27] MEDS: 0.9 % NaCl (Sterile) Posiflush 10 mL IV (05:44)
--- NOTE | 2022-11-27 05:55 | ECHOD_ITS ---
Reason For Study: AFIB Procedure This was a 2D Doppler, Color Flow transthoracic echocardiogram. Exam performed portable in patient room. Left Ventricle Normal LV size. Mild concentric left ventricular hypertrophy. The left ventricular ejection fraction is 70 %. Normal diastology for age. Right Ventricle Normal right ventricle. Atria The left atrium is moderately enlarged. Normal right atrium. Mitral Valve Mild diffuse mitral valve thickening. Trivial mitral valve insufficiency. Tricuspid Valve The tricuspid valve is not well visualized. Aortic Valve Aortic sclerosis, no stenosis. Pulmonic Valve The pulmonic valve is not well visualized. Great Vessels The aortic root is not well visualized. Pericardium/Pleural No pericardial effusion. MMode/2D Measurements & Calculations Ao root diam: 3.6 cm LAV(MOD-bp): 57.7 ml LVAd ap4: 26.2 cm2 LAV(MOD-bp) Indexed: 27.6 ml/m2 LVLd ap4: 8.0 cm LAV(MOD-sp2): 60.8 ml EDV(MOD-sp4): 70.4 ml LAV(MOD-sp4): 57.1 ml EDV(sp4-el): 72.6 ml LVAs ap4: 12.9 cm2 LVLs ap4: 6.9 cm ESV(MOD-sp4): 21.7 ml ESV(sp4-el): 20.6 ml EF(MOD-sp4): 69.2 % EF(sp4-el): 71.7 % SV(MOD-sp4): 48.7 ml SV(sp4-el): 52.0 ml LA A4 area: 21.1 cm2 LA dimension(2D): 4.1 cm RA A4 area: 14.3 cm2 TAPSE: 1.9 cm Time Measurements MV dec time: 0.22 sec Doppler Measurements & Calculations MV E max ej: 85.1 cm/sec Lat Peak E' Ej: 5.9 cm/sec Med Peak E' Ej: 6.9 cm/sec MV A max ej: 88.4 cm/sec E/E' lat: 14.5 E/E' med: 12.3 MV E/A: 0.96 MV V2 max: 108.0 cm/sec MV dec slope: 399.2 cm/sec2 Ao V2 max: 116.0 cm/sec MV max P.7 mmHg Ao max P.4 mmHg MV V2 mean: 77.0 cm/sec Ao V2 mean: 85.0 cm/sec MV mean P.5 mmHg Ao mean P.1 mmHg MV V2 VTI: 34.5 cm Ao V2 VTI: 23.1 cm AV (velocity ratio): 0.85 LV V1 max: 97.3 cm/sec PA V2 max: 92.2 cm/sec LV V1 max P.8 mmHg PA V2 mean: 64.4 cm/sec LV V1 mean P.2 mmHg LV V1 mean: 69.4 cm/sec LV V1 VTI: 19.6 cm ECHO/Echo Complete Interpretation Summary Mild concentric left ventricular hypertrophy. The left ventricular ejection fraction is 70 %. The left atrium is moderately enlarged. Ordering Physician: Miky Ruiz Referring Physician: Mikayla Lopez M.D. Performed By: Mckenna Alexander RCS
[2022-11-27 06:55] LABS: Bedside Glucose 94 mg/dL (74-106)
--- NOTE | 2022-11-27 08:39 | PCM.HOSP.N ---
Hospitalist Note Patient did have elevating troponin so cardiology was consulted, no further RVR, patient declined cath and was interested in medical management, agreeable to Eliquis/anticoagulation. He has been started on this and medicine for med management, patient tolerates this and is doing well may be able to DC tomorrow pending cardiology recommendations
[2022-11-27] MEDS: Dextrose 50%-Water 25 GM/50 ML DISP.SYRIN IV (09:02)
[2022-11-27 10:13] LABS: Troponin-I HS 10402 pg/mL (3.0-78.0)
--- NOTE | 2022-11-27 11:43 | CON.PCM.CA_ITS ---
Assessment & Plan Assessment/Plan (1) Atrial fibrillation: QUALIFIERS: Atrial fibrillation type: paroxysmal Qualified Code(s): I48.0 - Paroxysmal atrial fibrillation PLAN: Converted to normal sinus rhythm on amiodarone. Switch to p.o. amiodarone. Stop diltiazem infusion. Patient's CHADS2?VASc score is 4. Discussed with patient's oncologist. They do not see any contraindication to starting chronic oral anticoagulation at this point in time. Discussed with patient as well. Chronic oral anticoagulation offered. Risks and benefits explained. He understand these and wishes to proceed. Recommend starting on Eliquis 5 mg twice daily. (2) NSTEMI (non-ST elevated myocardial infarction): PLAN: Patient has underlying coronary artery disease as evidenced by coronary calcifications noted on CT scan of the chest. Likely type II elevation with atrial fibrillation with rapid ventricular response with underlying coronary artery disease. Further course of action discussed with patient. Coronary angiography was discussed. Risks benefits and alternatives were explained. He understand these and wishes to have medical treatment only at this point in time. Continue metoprolol. Eliquis as noted above. Risk factor modification. (3) Coronary artery disease: PLAN: See #2 above. (4) Esophageal cancer: QUALIFIERS: Malignant neoplasm of esophagus location: unspecified location Qualified Code(s): C15.9 - Malignant neoplasm of esophagus, unspecified PLAN: Patient has a gastrostomy tube in place. On chemotherapy. (5) Diabetes mellitus, type II: QUALIFIERS: Diabetes mellitus complication status: with neurologic complications Diabetes mellitus complication detail: with polyneuropathy Qualified Code(s): E11.42 - Type 2 diabetes mellitus with diabetic polyneuropathy PLAN: As per internal medicine. (6) Hypertension: QUALIFIERS: Hypertension type: essential hypertension Hypertension goal: less than 130/80 Qualified Code(s): I10 - Essential (primary) hypertension PLAN: Beta-blockers. (7) Hx of kidney transplant: PLAN: On tacrolimus. Follow as per nephrology. HPI Consult Data Date of Consult: 11/27/22 HPI Narrative Reason for Consultation: Elevated troponin HPI Narrative: This gentleman has past medical history significant for diabetes mellitus, chronic renal failure status post renal transplant, he also has history of esophageal CA with possible mets to the adrenal gland. He presented to the emergency room with complaints of shortness of breath. No chest pain. He was noted to be in atrial fibrillation with rapid ventricular response. He was started on diltiazem infusion and amiodarone. He has subsequently converted to normal sinus rhythm. Presently his shortness of breath is resolved. His troponins were noted to be markedly elevated. Patient denies any history of coronary artery disease in the past. He has had CT scans of the chest done for his esophageal CA. These showed coronary artery calcification as an incidental finding. No history of CVA or TIA. Denies any bleeding disorders. [facility] Medical History (Updated 11/27/22 @ 11:[address] Srinivasa Mendosa MD) Ambulates with cane Amputation finger Amputation of toe Anemia of chronic disease Atrial fibrillation Chemotherapy adverse reaction Diabetes mellitus, type II Dialysis AV fistula malfunction Esophageal cancer Esophageal cancer Gastric reflux History of steroid therapy HLD (hyperlipidemia) Hyperglycemia due to diabetes mellitus Hypertension Hypertension Hyponatremia Insulin dependent diabetes mellitus Wears dentures Wears glasses Wears hearing aid Home Medications metoprolol tartrate 50 mg tablet 50 mg PO BID bp 11/29/12 [History Last Taken 04/25/21 08:00] niacin 250 mg tablet,extended release (Slo-Niacin) 500 mg PO DAILY b vitamin 11/29/12 [History Last Taken 05/18/15 09:00] rosuvastatin 20 mg tablet (Crestor) 20 mg PO QHS hld 11/29/12 [History Last Taken 05/17/15] famotidine 20 mg tablet 20 mg PO QHS GERD 05/11/15 [History Last Taken 05/17/15] mycophenolate mofetil 500 mg tablet (CellCept) 500 mg PO BID transplant kidney 05/11/15 [History Last Taken 04/25/21 08:00] prednisone 2.5 mg tablet 5 mg PO DAILY steriod 05/11/15 [History Last Taken 04/25/21 08:00] tacrolimus 1 mg capsule, immediate-release (Prograf) 1 mg PO BID anit rejection 05/11/15 [History Last Taken 05/18/15 09:00] insulin aspart U-100 100 unit/mL (3 mL) subcutaneous pen (Novolog FlexPen U-100 Insulin aspart) See Protocol subcut CONT DM 02/06/18 [History Last Taken 02/06/18] omeprazole 20 mg tablet,delayed release 20 mg PO DAILY stomach 05/21/22 [History Last Taken Unknown] hydrocodone bitartrate 15 mg capsule, oral only, extended rel 12 hr 15 mg PO Q8 10/16/22 [History Last Taken Unknown] lactose-reduced food with fiber 0.06 gram-1.5 kcal/mL oral liquid (Jevity 1.5 Victorino) 237 ml feeding tube .COMPLEX 10/16/22 [History Last Taken Unknown] ondansetron 8 mg disintegrating tablet 8 mg PO Q8H PRN nausea and vomiting 30 days #30 tabs 10/17/22 [Rx Last Taken Unknown] nystatin 100,000 unit/mL oral suspension 5 ml PO .QID 10/24/22 [History Last Taken Unknown] omeprazole 10 mg capsule,delayed release See Rx Instructions feeding tube DAILY 10/24/22 [History Last Taken Unknown] sulfamethoxazole-trimethoprim 1 tab PO DAILY antibiotic 11/26/22 [History Last Taken Unknown] Allergy/AdvReac Type Severity Reaction Status Date / Time diphenhydramine AdvReac Mild jittery/ Verified 10/24/22 04:48 [From Benadryl] anxious Family History Mother Kidney disease Hypertension High cholesterol Diabetes Father Kidney disease Hypertension High cholesterol Diabetes Surgical History (Updated 11/27/22 @ 11:[address] Srinivasa Mendosa MD) Amputation of foot Hx of kidney transplant Hx of surgical amputation of finger Renal transplant recipient Renal transplant recipient Social History household members: spouse, family and children Smoking Status: Former smoker how long ago did patient quit smoking: Quit~ 50 years prior smoked youth until quit 2 ppd. alcohol intake: former details: Drank heavily in youth, stopped ~ 50 years prior. substance use type: does not use what type of physical activity do you participate in: walking Physical Exam Narrative Comfortable. No apparent distress. Heart sounds 1 and 2 are normal. Chest clear to auscultation bilaterally. Alert oriented x3. Trace bilateral ankle edema noted. Risk Stratification Risk Stratification Applicable: No Objective Data Vital Signs: Vital Signs Temp Pulse Resp BP Pulse Ox O2 Del Method O2 Flow Rate 98.2 F 83 16 114/73 95 Room Air 2 11/27/22 08:18 11/27/22 08:18 11/27/22 08:18 11/27/22 08:18 11/27/22 08:18 11/27/22 08:18 11/27/22 05:00 Oxygen Flow Rate (L/min) 2 Oxygen Delivery Method Room Air Weight: 199 lb 8.293 oz Body Mass Index (BMI) 28.6 Intake & Output: Intake and Output for Last 24 Hours 11/25/22 11/26/22 11/27/22 23:59 23:59 23:59 Intake Total 8.92 / 8.92 2277.09 / 2277.09 Output Total 1000 / 1000 Balance 8.92 / 8.92 1277.09 / 1277.09 Lab / Micro Data Attestation: I reviewed the patient's lab results. 11/27/22 03:45 11/27/22 03:45 Labs: Laboratory Results - last 24 hr 11/26/22 21:50: WBC 6.1, RBC 3.18 L, Hgb 8.4 L, Hct 26.5 L, MCV 83.3, MCH 26.4 L , MCHC 31.7 L, RDW Std Deviation 48.4 H, RDW Coeff of Ayaka 15.9 H, Plt Count 99 L , MPV 10.9, Immature Gran % (Auto) 1.000 H, Neut % (Auto) 80.9 H, Lymph % (Auto) 9.4 L, [place] % (Auto) 7.7, Eos % (Auto) 0.8, Baso % (Auto) 0.2, Absolute Neuts (auto) 4.9, Absolute Lymphs (auto) 0.57 L, Nucleated RBC % 0, Differential Comment SCANNED, PT 15.9 H, INR 1.3, APTT 58.1 H, Sodium 137, Potassium 3.3 L, Chloride 111 H, Carbon Dioxide 20.0 L, Anion Gap 6, BUN 16, Creatinine 0.56 L, Estim Creat Clear Calc 70.97, Est GFR (MDRD) Af Amer 185, Est GFR (MDRD) Non-Af 153, BUN/Creatinine Ratio 28.6 H, Glucose 206 H, Calcium 5.7 L*, Magnesium 1.4 L , Troponin I High Sens 36 11/27/22 00:25: Troponin I High Sens 1600 H*, Albumin 2.1 L 11/27/22 02:37: POC Glucose 104 11/27/22 03:45: WBC 5.3, RBC 3.47 L, Hgb 9.1 L, Hct 29.4 L, MCV 84.7, MCH 26.2 L , MCHC 31.0 L, RDW Std Deviation 49.9 H, RDW Coeff of Ayaka 16.4 H, Plt Count 126 L, MPV 10.3, Immature Gran % (Auto) 1.700 H, Neut % (Auto) 77.6 H, Lymph % (Auto) 9.6 L, [place] % (Auto) 9.0, Eos % (Auto) 1.7, Baso % (Auto) 0.4, Absolute Neuts (auto) 4.1, Absolute Lymphs (auto) 0.51 L, Nucleated RBC % 0, Differential Comment SCANNED, Sodium 137, Potassium 4.2, Chloride 106, Carbon Dioxide 28.0, Anion Gap 3 L, BUN 16, Creatinine 0.77, Estim Creat Clear Calc 70.97, Est GFR (MDRD) Af Amer 129, Est GFR (MDRD) Non-Af 106, BUN/Creatinine Ratio 20.8 H, Glucose 101, Calcium 8.4 L, Iron 13 L, TIBC 266, Iron Saturation 4.9 L, Lactate Dehydrogenase 232, Troponin I High Sens 7971 H*, Vitamin B12 832, Folate 8.20, TSH 1.02, Cortisol 8.60 11/27/22 06:36: POC Glucose 94 11/27/22 09:30: Troponin I High Sens 79317 H* 11/27/22 09:56: Ionized Calcium 5.00 Rhythm Strip Rhythm Strip: Sinus Rhythm Cardiology Labs/Tests 11/26/22 21:50: WBC 6.1, RBC 3.18 L, Hgb 8.4 L, Hct 26.5 L, MCV 83.3, MCH 26.4 L , MCHC 31.7 L, Plt Count 99 L, MPV 10.9, Immature Gran % (Auto) 1.000 H, Neut % (Auto) 80.9 H, Lymph % (Auto) 9.4 L, [place] % (Auto) 7.7, Eos % (Auto) 0.8, Baso % (Auto) 0.2, Absolute Neuts (auto) 4.9, Nucleated RBC % 0, PT 15.9 H, INR 1.3, APTT 58.1 H, Sodium 137, Potassium 3.3 L, Chloride 111 H, Carbon Dioxide 20.0 L, Anion Gap 6, BUN 16, Creatinine 0.56 L, Est GFR (MDRD) Af Amer 185, Est GFR (MDRD) Non-Af 153, BUN/Creatinine Ratio 28.6 H, Glucose 206 H, Calcium 5.7 L*, Magnesium 1.4 L 11/27/22 03:45: WBC 5.3, RBC 3.47 L, Hgb 9.1 L, Hct 29.4 L, MCV 84.7, MCH 26.2 L , MCHC 31.0 L, Plt Count 126 L, MPV 10.3, Immature Gran % (Auto) 1.700 H, Neut % (Auto) 77.6 H, Lymph % (Auto) 9.6 L, [place] % (Auto) 9.0, Eos % (Auto) 1.7, Baso % (Auto) 0.4, Absolute Neuts (auto) 4.1, Nucleated RBC % 0, Sodium 137, Potassium 4.2, Chloride 106, Carbon Dioxide 28.0, Anion Gap 3 L, BUN 16, Creatinine 0.77, Est GFR (MDRD) Af Amer 129, Est GFR (MDRD) Non-Af 106, BUN/Creatinine Ratio 20.8 H, Glucose 101, Calcium 8.4 L, Iron 13 L, TIBC 266, Iron Saturation 4.9 L 11/27/22 09:56: Ionized Calcium 5.00 Rhythm: EKG: First ECG showed atrial fibrillation with rapid ventricular response. Presently normal sinus rhythm. ECHO: Stress Test: Cardiac Cath: PCI: CT Surgery: Holter monitor: EPS: PPM: CXR: Chest CT Scan: Radiography Diagnostic Testing: Radiology Impression Chest CTA 11/26/22 21:58 IMPRESSION: CTA chest examination, without a demonstrated pulmonary embolism or arterial dissection. Esophageal mass. Distention of the proximal esophagus. Bilateral infiltrates. Left lower lobe nodule suggesting metastatic disease. Right adrenal mass. Electronically Signed: Junior Durand MD at 23:32 EDT ,
[2022-11-27 11:57] LABS: Partial Thromboplast Time 36.3 Seconds (24.1-36.2)
[2022-11-27] MEDS: Amiodarone 200 MG Tablet PO (12:59)
[2022-11-27] MEDS: Isosorbide DN 10 MG Tablet 5 MG PO ×2 (12:59→22:06)
[2022-11-27] MEDS: Tacrolimus Anhydrous 1 MG Capsule GT ×2 (13:00→22:04)
[2022-11-27] MEDS: NYSTATIN 500,000 UNIT/5 ML UDC 500000 UNIT PO ×3 (13:00→22:04)
[2022-11-27] MEDS: Metoprolol Tartrate 25 MG Tablet 75 MG GT ×2 (13:11→22:05)
[2022-11-27] MEDS: predniSONE 5 MG Tablet GT (13:12)
[2022-11-27] MEDS: Jevity 1.5. 1,000 ML Bottle 237 ML GT ×4 (13:12→21:29)
--- NOTE | 2022-11-27 14:15 | CASEMGMT ---
Addendum entered by Digna Hargrove 11/27/22 14:45: Per Dr Beasley's PN, plan is for Eliquis @ discharge. 30-day savings card provided to family and instructed on use. They voice understanding. Original Note: RN TERI Assessment: RN CM to room to meet with pt for initial transition planning/care coordination assessment. WALTER WILLIAMSON introduced self and role at [facility]. Pt resting in bed w/blanket over his head. @ bedside voices understanding and consents to assessment. Care providers, pharmacy, and demographics verified/updated. PCP:Jessica Specialists:silvana Garcia; dimitri Anthony Pharmacy[facility] [place] Insurance: [employer] LW/HCPOA: Pt has both LW and HCPOA, who is his . Prescription Benefit: no. Pt may possibly discharge home on anti-platelet therapy. Made aware a 30-day savings card could be provided. Discussed potential high cost on refills, depending on what pt discharges home on. states she will check into the kidney fund that pays for a lot of medications to see if they would cover for this medication, but if not, they would be able to afford to pay for them monthly. CM to follow and provide savings card, as applicable. LNOK: Sonia Zuleta, Living Arrangements: Pt lives with in a single story home with no steps to enter. Pt reports pt is I in ADL's and she does home mgnt tasks. Family live in house on the same property, are supportive, and able to help, if needed. Transportation: Pt hires drivers for transportation. DME/HHC/SNF: Pt has an insulin pump that checks his blood sugars. Pt reports they have sufficient supplies for this. Pt has a cane that he uses at home. He also has a shower chair, BSC, walker, and W/C. Pt has had [facility] in the past as well as [facility], no SNF stays. denies need for HHC at this time. She was made aware, should they change their mind once pt returns home, to f/u with PCP. She voices understanding. states no concerns with going home at time of dc. Pt has a PEG tube and and pt administer feedings. Pt orders supplies and a shipment should be arriving today. Pt states no further concerns/needs. CM to follow. Advised pt and to ask CM if any further question/concerns/needs arise, voices understanding. Plan: Home. Husam SUAREZN RN CM
--- NOTE | 2022-11-27 16:16 | CHAPLAIN ---
Type of Pastoral Visit _x__ Initial Visit ___ Follow-up Visit ___ On-call Visit ___ General Patient Visit ___ Spiritual Assessment ___ Family Conference ___ Bereavement ___ Rapid Response ___ Code Blue ___ Other (describe below) Pastoral Care Referral From _x_ Patient _x__ Family ___ Nurse ___ Physician ___ Photographer Portrait ___ Tool Designer Apprentice ___ Other (describe below) Sacrament/Intervention __x_ Active listening ___ Anointing ___ Druze ___ Bereavement ___ Communion ___ Shanell exploration ___ ___ Life review x__ Prayer ___ Reconciliation ___ Sacrament of Sick _x__ Supportive presence ___ Wedding ___ Other (describe below) Pastoral Comments patient is awake and welcoming; spouse and daughter are in the room; patient describes this new health issue as well as the ongoing cancer treatment; all welcome prayer for support as the best thing you can do
--- NOTE | 2022-11-27 21:28 | NURSING ---
pt blood sugar 130 from patients pump
[2022-11-27] MEDS: APIXABAN 5 MG TABLET PO (22:03)
[2022-11-27] MEDS: Atorvastatin Calcium 40 MG Tablet GT (22:08)
[2022-11-28 02:48] VITALS: BP 141/69; PULSE 79; RESP 16; TEMP 36.8; O2SAT 92
[2022-11-28] MEDS: Morphine 2 MG/ML Syringe IV ×2 (03:54→06:58)
[2022-11-28] MEDS: 0.9% Saline Lock 10 ML Syringe IV ×2 (03:54→06:58)
[2022-11-28 05:07] LABS: Haptoglobin 204 mg/dL (32-363)
[2022-11-28 05:16] LABS: Absolute Lymphocyte Count 0.52 X10^3/uL (0.83-4.51); Absolute Neutrophil Count 4.1 X10^3/uL (2.0-7.7); Basophil# 0.01 X10^3/uL; Basophil% 0.2 % (0-1); Eosinophil# 0.04 X10^3/uL; Eosinophils% 0.7 % (0-5); Hematocrit 27.2 % (40-54); Hemoglobin 8.4 g/dL (13.0-16.5); Lymphocyte # 0.52 X10^3/ul (0.83-4.51); Lymphocyte % 9.6 % (19-41); Mean Corp Hgb Conc 30.9 g/dL (32-36); Mean Corpuscular Hgb 26.2 pg (27.0-32.0); Mean Corpuscular Volume 84.7 fL (80-94); Mean Platelet Vol. 10.4 fl (6.2-12.0); Monocyte# 0.64 X10^3/uL; Monocyte% 11.8 % (0-10); NRBC Flagged by Analyzer 0 % (0-5); Neutrophil # 4.14 X10^3/uL (2.7-7.7); Neutrophil % 76.6 % (47-70); POSITIVE DIFFERENTIAL YES; Platelet Count 125 K/mm3 (150-450); RBC Distribution Width CV 16.4 % (11.6-14.6); RBC Distribution Width SD 50.1 fl (35.1-43.9); Red Blood Count 3.21 M/mm3 (4.6-6.2); White Blood Count 5.4 K/mm3 (4.4-11.0)
[2022-11-28 05:22] LABS: Differential Indicated SCAN CRITERIA MET
[2022-11-28 05:42] LABS: Anion Gap 3 (5-15); BUN 14 mg/dL (7-18); BUN/Creat Ratio 20.4 RATIO (10-20); Calcium,Total 8.6 mg/dL (8.5-10.1); Chloride 104 mmol/L (98-107); Creatinine, Serum 0.69 mg/dL (0.70-1.30); EST Glomerular Filtration Rate 121 mL/min (>60); Est Glom Filt Rate - Afr Amer 147 mL/min (>60); Estimated Creatinine Clearance 70.97 ml/min; Glucose 134 mg/dL (74-106); Potassium 4.3 mmol/L (3.5-5.1); Sodium Level 136 mmol/L (136-145)
[2022-11-28 06:17] LABS: Differential Comment SCANNED
--- NOTE | 2022-11-28 06:57 | NURSING ---
PT REPORTS BLOOD SUGAR OF 122
[2022-11-28 07:25] VITALS: O2SAT 95
[2022-11-28] MEDS: NYSTATIN 500,000 UNIT/5 ML UDC 500000 UNIT PO ×2 (08:22→16:32)
[2022-11-28 08:23] VITALS: PULSE 72
[2022-11-28] MEDS: predniSONE 5 MG Tablet GT (08:23)
[2022-11-28] MEDS: Metoprolol Tartrate 25 MG Tablet 75 MG GT (08:23)
[2022-11-28] MEDS: APIXABAN 5 MG TABLET PO (08:24)
[2022-11-28] MEDS: Isosorbide DN 10 MG Tablet 5 MG PO (08:24)
[2022-11-28] MEDS: Lansoprazole 15 MG Capsule.DR GT (08:24)
[2022-11-28] MEDS: Amiodarone 200 MG Tablet PO (08:24)
[2022-11-28] MEDS: Tacrolimus Anhydrous 1 MG Capsule GT (08:29)
[2022-11-28] MEDS: Jevity 1.5. 1,000 ML Bottle 237 ML GT ×3 (08:49→16:30)
[2022-11-28 09:00] VITALS: BP 146/82; PULSE 75; RESP 16; TEMP 36.7; O2SAT 94
[2022-11-28] MEDS: SMZ/TPM Suspension 20 ML GT (09:10)
[2022-11-28 12:20] VITALS: PULSE 68
[2022-11-28] MEDS: Acetaminophen 650 MG/20 ML UDC GT (12:20)
[2022-11-28] MEDS: Metoprolol Tartrate 25 MG Tablet GT (12:20)
--- NOTE | 2022-11-28 14:59 | PCM.DC ---
Discharge Instructions Diet Discharge Diet: - (DASH diet) Activity Discharge Activity: - (Increase activity as tolerated) Follow Up Care Test Results: Test results from this visit will be discussed in further detail at your follow-up appointment, if applicable. Discharge Plan Admission Admit Date/Time: 11/27/22 00:21 Primary Reason for Your Visit: Chest pain Attending Provider: Candice Beasley Primary Care Provider: Mikayla Lopez Consulting Providers: Miky Ruiz; Srinivasa Mendosa Instructions Patient Instructions: AFib Dc, ED Fall Prevention Additional Instructions / Restrictions: DISCHARGE INSTRUCTIONS PLEASE READ *Please take this with you to your next doctors appointment* -You have had your metoprolol increased to 100 mg twice a day and isosorbide dinitrate added as well as amiodarone -You are also started on a blood thinner, Eliquis, for your irregular heart rate, it will be important that you take this twice daily, it is additionally important that you he fall precautions due to risk of bleeding with falls, fall precaution information added to your discharge packet -You will need to follow-up with cardiology upon discharge, please call the office of Dr. Mendosa upon discharge to schedule your hospital follow-up appointment ( [phone]) -Would recommend lab work (CBC) to check your blood counts in 2 to 3 days through your primary care physician's office. Please call their office upon discharge to obtain order for lab work. -Please follow with your oncologist upon discharge -Please call your primary care provider's office upon discharge to schedule a hospital follow up within 1 week. -For any concerning signs or symptoms please call 911 or proceed to the nearest emergency department Discharge Orders/Prescriptions Prescriptions: New isosorbide dinitrate 10 mg Tablet 5 mg feeding tube BID 30 Days Qty: 30 0RF metoprolol tartrate 100 mg Tablet 100 mg G-tube BID 30 Days Qty: 60 0RF amiodarone 200 mg Tablet 200 mg PO DAILY 30 Days Qty: 30 0RF Eliquis 5 mg Tablet 5 mg PO BID 30 Days Qty: 60 0RF Continued rosuvastatin [Crestor] 20 MG tablet 20 mg PO QHS Patient Comments: decrease cholesterol prednisone 2.5 MG tablet 5 mg PO DAILY Patient Comments: STEROID tacrolimus [Prograf] 1 MG capsule 1 mg PO BID Patient Comments: KIDNEYS insulin aspart U-100 [Novolog FlexPen U-100 Insulin] 100 UNITS/ML insulin pen See Protocol subcut CONT Protocol: 6. Sliding Scale Insulin Custom Condition: mg/dl range Dose/Route: Number of Units Instruction: using insulin pump Protocol Text: Custom Sliding Scale Rx Instructions: insulin pump sulfamethoxazole-trimethoprim 1 tab PO DAILY Rx Instructions: 1 tablet daily on m , thursday, thursday Jevity 1.5 Victorino 0.06 gram-1.5 kcal/mL liquid 237 ml feeding tube .COMPLEX Rx Instructions: 237 mL via feeding tube 0900,1200,1500,1800,2100; ondansetron 8 mg tablet,disintegrating 8 mg PO Q8H PRN (Reason: nausea and vomiting) 30 Days Qty: 30 0RF nystatin 100,000 unit/mL suspension 5 ml PO .QID Rx Instructions: swish and swallow omeprazole 10 mg capsule,delayed release(DR/EC) See Rx Instructions feeding tube DAILY Rx Instructions: 10ML via feeding tube daily; Discontinued niacin [Slo-Niacin] 250 MG tablet extended release 500 mg PO DAILY Hold Instructions: pt not taking Patient Comments: SUPPLEMENT metoprolol tartrate 50 MG tablet 50 mg PO BID Patient Comments: BLOOD PRESSURE mycophenolate mofetil [CellCept] 500 MG tablet 500 mg PO BID Hold Instructions: not taking Patient Comments: ANTI-REJECTION MED famotidine 20 MG tablet 20 mg PO QHS Hold Instructions: pt not taking Patient Comments: GERD omeprazole 20 mg Tablet,Delayed Release (Dr/Ec) 20 mg PO DAILY hydrocodone bitartrate 15 mg capsule, oral only, ER 12hr 15 mg PO Q8 Hold Instructions: pt not taking Referrals / Follow Up: Srinivasa Mendosa MD [Med Staff - Active Staff] - Within 1 Month Mikayla Lopez MD [Primary Care Provider] - Within 1 Week Disposition Disposition (needs filled in before D/C Order can be placed): Home, Self Care
--- NOTE | 2022-11-28 15:07 | PCM.DC.SUM ---
Providers Date of Admission: 11/27/22 Date of Discharge: 11/28/22 Primary Care Physician: Dr. Mikayla Lopez MD Consultations 11/27/22 01:41 Consult: Cardiology Routine Consulting Provider: Srinivasa Mendosa Reason for Consult: Afib with RVR EMERGENT Consult: No MD Notified: No Date Notified: 11/27/22 Time Notified: 00:35 Method of Consult:: In-Person 11/27/22 08:42 Consult: Cardiology Routine Consulting Provider: Srinivasa Mendosa Reason for Consult: Chest pain, elevated trops, new onset afib rvr EMERGENT Consult: No MD Notified: Yes Date Notified: 11/27/22 Time Notified: 08:42 Method of Notification: Text Reason For Visit: A-FIB WITH RVR Diagnosis Discharge Diagnosis (1) Atrial fibrillation: Status: Acute Code(s): I48.91 - Unspecified atrial fibrillation Qualifiers: Atrial fibrillation type: paroxysmal Qualified Code(s): I48.0 - Paroxysmal atrial fibrillation (2) NSTEMI (non-ST elevated myocardial infarction): Status: Acute Code(s): I21.4 - Non-ST elevation (NSTEMI) myocardial infarction (3) Coronary artery disease: Status: Acute Code(s): I25.10 - Atherosclerotic heart disease of [place] coronary artery without angina pectoris (4) Esophageal cancer: Status: Acute Code(s): C15.9 - Malignant neoplasm of esophagus, unspecified Qualifiers: Malignant neoplasm of esophagus location: unspecified location Qualified Code(s): C15.9 - Malignant neoplasm of esophagus, unspecified (5) Diabetes mellitus, type II: Status: Acute Code(s): E11.9 - Type 2 diabetes mellitus without complications Qualifiers: Diabetes mellitus complication detail: with polyneuropathy Diabetes mellitus complication status: with neurologic complications Qualified Code(s): E11.42 - Type 2 diabetes mellitus with diabetic polyneuropathy (6) Hypertension: Status: Chronic Code(s): I10 - Essential (primary) hypertension Qualifiers: Hypertension goal: less than 130/80 Hypertension type: essential hypertension Qualified Code(s): I10 - Essential (primary) hypertension (7) Hx of kidney transplant: Status: Acute Code(s): Z94.0 - Kidney transplant status Plan #afib w/ rvr #Nstemi, likely typ eII #Esophageal cancer #DMII #Resolved diarrhea Medications at Discharge Home Medications rosuvastatin 20 mg tablet (Crestor) 20 mg PO QHS cholesterol 11/29/12 prednisone 2.5 mg tablet 5 mg PO DAILY steriod 05/11/15 tacrolimus 1 mg capsule, immediate-release (Prograf) 1 mg PO BID anit rejection 05/11/15 insulin aspart U-100 100 unit/mL (3 mL) subcutaneous pen (Novolog FlexPen U-100 Insulin aspart) See Protocol subcut CONT DM 02/06/18 lactose-reduced food with fiber 0.06 gram-1.5 kcal/mL oral liquid (Jevity 1.5 Victorino) 237 ml feeding tube .COMPLEX 10/16/22 ondansetron 8 mg disintegrating tablet 8 mg PO Q8H PRN nausea and vomiting 30 days #30 tabs 10/17/22 nystatin 100,000 unit/mL oral suspension 5 ml PO .QID 10/24/22 omeprazole 10 mg capsule,delayed release See Rx Instructions feeding tube DAILY reflux 10/24/22 sulfamethoxazole-trimethoprim 1 tab PO DAILY antibiotic 11/26/22 amiodarone 200 mg tablet 200 mg PO DAILY 30 days #30 tabs 11/28/22 apixaban 5 mg tablet (Eliquis) 5 mg PO BID 30 days #60 tabs 11/28/22 isosorbide dinitrate 10 mg tablet 5 mg (1/2 x 10 mg) feeding tube BID 30 days #30 tabs 11/28/22 metoprolol tartrate 100 mg tablet 100 mg G-tube BID 30 days #60 tabs 11/28/22 Hospital Course Procedures Transthoracic echo Summary of Care Provided Minutes Spent on Discharge: 40 Hospital Course: MAHAD SULLIVAN, is a 72 M with a significant history of diabetes mellitus on insulin pump; 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 CTA chest with no PE and echo with EF 70% no wall motion abnormalities. Had subsequent trop elevation. Cards c/sltd. Cardiology evaluated and discussed with his oncologist who cleared him for AC. Pt opted for med management for CAD instead of heart cath but was amenable to eliquis treatment. Pt improved and had no further episodes of RVR. He did report having a bruised feeling around his sternum. He said it felt nothing like the pain that brought him in and felt more like when he fell and bruised his ribs before and he thinks he might of fallen before coming in when this episode happened. Tylenol helped it a little bit and he reports it would get somewhat sharp occasionally when he would move or take a deep breath and that seemed to the only associated worsening factor. Discussed extensively with patient and and this does not sound to be cardiac in nature, had EKGs overnight and was not felt patient was having any acute coronary events and you no significant episodes on telemetry. Patient and comfortable with discharge home, discussed warning signs and symptoms for when to come back, they verbalized their understanding and were agreeable. D/c inst as followed: -You have had your metoprolol increased to 100 mg twice a day and isosorbide dinitrate added as well as amiodarone -You are also started on a blood thinner, Eliquis, for your irregular heart rate, it will be important that you take this twice daily, it is additionally important that you he fall precautions due to risk of bleeding with falls, fall precaution information added to your discharge packet -You will need to follow-up with cardiology upon discharge, please call the office of Dr. Mendosa upon discharge to schedule your hospital follow-up appointment (ph [phone]) -Would recommend lab work (CBC) to check your blood counts in 2 to 3 days through your primary care physician's office. Please call their office upon discharge to obtain order for lab work. -Please follow with your oncologist upon discharge -Please call your primary care provider's office upon discharge to schedule a hospital follow up within 1 week. -For any concerning signs or symptoms please call 911 or proceed to the nearest emergency department Physical Exam Narrative General: Alert, oriented, no apparent distress HEENT: Atraumatic, normocephalic Eyes: Anicteric, normal conjunctiva, extraocular movements grossly intact Neck: Supple Respiratory: Clear to auscultation bilaterally, normal respiratory effort Cardiovascular: Regular rate GI: Soft, nontender, nondistended Extremities: No edema Musculoskeletal: Moving all extremities Neuro: No overt focal neurological deficits Skin: No rashes appreciated Psych: Cooperative Weight / BMI Weight Weight: 90.5 kg Body Mass Index (BMI) 28.6 ABG / Lab / Microbiology Data 11/28/22 04:25 11/28/22 04:25 Laboratory: Laboratory Results - last 24 hr 11/27/22 03:45: Haptoglobin 204 11/28/22 04:25: WBC 5.4, RBC 3.21 L, Hgb 8.4 L, Hct 27.2 L, MCV 84.7, MCH 26.2 L, MCHC 30.9 L, RDW Std Deviation 50.1 H, RDW Coeff of [place] 16.4 H, Plt Count 125 L, MPV 10.4, Immature Gran % (Auto) 1.100 H, Neut % (Auto) 76.6 H, Lymph % (Auto) 9.6 L, [place] % (Auto) 11.8 H, Eos % (Auto) 0.7, Baso % (Auto) 0.2, Absolute Neuts (auto) 4.1, Absolute Lymphs (auto) 0.52 L, Nucleated RBC % 0, Differential Comment SCANNED, Sodium 136, Potassium 4.3, Chloride 104, Carbon Dioxide 29.0, Anion Gap 3 L, BUN 14, Creatinine 0.69 L, Estim Creat Clear Calc 70.97, Est GFR (MDRD) Af Amer 147, Est GFR (MDRD) Non-Af 121, BUN/Creatinine Ratio 20.4 H, Glucose 134 H, Calcium 8.6, Magnesium 2.0 D/C Instructions Discharge Diet: - (DASH diet) Meaningful Use Info Meaningful Use Diagnoses (Choose all that apply): None applicable Discharge Plan Admission Admit Date/Time: 11/27/22 00:21 Primary Reason for Your Visit: Chest pain Attending Provider: Candice Beasley Primary Care Provider: Mikayla Lopez Consulting Providers: Miky Ruiz; Srinivasa Mendosa Instructions Patient Instructions: AFib Dc, ED Fall Prevention Additional Instructions / Restrictions: DISCHARGE INSTRUCTIONS PLEASE READ *Please take this with you to your next doctors appointment* -You have had your metoprolol increased to 100 mg twice a day and isosorbide dinitrate added as well as amiodarone -You are also started on a blood thinner, Eliquis, for your irregular heart rate, it will be important that you take this twice daily, it is additionally important that you he fall precautions due to risk of bleeding with falls, fall precaution information added to your discharge packet -You will need to follow-up with cardiology upon discharge, please call the office of Dr. Mendosa upon discharge to schedule your hospital follow-up appointment ) -Would recommend lab work (CBC) to check your blood counts in 2 to 3 days through your primary care physician's office. Please call their office upon discharge to obtain order for lab work. -Please follow with your oncologist upon discharge -Please call your primary care provider's office upon discharge to schedule a hospital follow up within 1 week. -For any concerning signs or symptoms please call 911 or proceed to the nearest emergency department Discharge Orders/Prescriptions Prescriptions: New isosorbide dinitrate 10 mg Tablet 5 mg feeding tube BID 30 Days Qty: 30 0RF metoprolol tartrate 100 mg Tablet 100 mg G-tube BID 30 Days Qty: 60 0RF amiodarone 200 mg Tablet 200 mg PO DAILY 30 Days Qty: 30 0RF Eliquis 5 mg Tablet 5 mg PO BID 30 Days Qty: 60 0RF Continued rosuvastatin [Crestor] 20 MG tablet 20 mg PO QHS Patient Comments: decrease cholesterol prednisone 2.5 MG tablet 5 mg PO DAILY Patient Comments: STEROID tacrolimus [Prograf] 1 MG capsule 1 mg PO BID Patient Comments: KIDNEYS insulin aspart U-100 [Novolog FlexPen U-100 Insulin] 100 UNITS/ML insulin pen See Protocol subcut CONT Protocol: 6. Sliding Scale Insulin Custom Condition: mg/dl range Dose/Route: Number of Units Instruction: using insulin pump Protocol Text: Custom Sliding Scale Rx Instructions: insulin pump sulfamethoxazole-trimethoprim 1 tab PO DAILY Rx Instructions: 1 tablet daily on m , thursday, thursday Jevity 1.5 Victorino 0.06 gram-1.5 kcal/mL liquid 237 ml feeding tube .COMPLEX Rx Instructions: 237 mL via feeding tube 0900,1200,1500,1800,2100; ondansetron 8 mg tablet,disintegrating 8 mg PO Q8H PRN (Reason: nausea and vomiting) 30 Days Qty: 30 0RF nystatin 100,000 unit/mL suspension 5 ml PO .QID Rx Instructions: swish and swallow omeprazole 10 mg capsule,delayed release(DR/EC) See Rx Instructions feeding tube DAILY Rx Instructions: 10ML via feeding tube daily; Discontinued niacin [Slo-Niacin] 250 MG tablet extended release 500 mg PO DAILY Hold Instructions: pt not taking Patient Comments: SUPPLEMENT metoprolol tartrate 50 MG tablet 50 mg PO BID Patient Comments: BLOOD PRESSURE mycophenolate mofetil [CellCept] 500 MG tablet 500 mg PO BID Hold Instructions: not taking Patient Comments: ANTI-REJECTION MED famotidine 20 MG tablet 20 mg PO QHS Hold Instructions: pt not taking Patient Comments: GERD omeprazole 20 mg Tablet,Delayed Release (Dr/Ec) 20 mg PO DAILY hydrocodone bitartrate 15 mg capsule, oral only, ER 12hr 15 mg PO Q8 Hold Instructions: pt not taking Referrals / Follow Up: Mikayla Lopez MD [Primary Care Provider] - 12/04/22 11:15 am Emma Arguello NP, DOG HAND[employer]ER OR TRAINER-[employer] [Non-Staff -Ordering Privileges] - 12/17/22 2:00 pm Disposition Disposition (needs filled in before D/C Order can be placed): Home, Self Care Charges/Coding Visit Charges Inpatient E&M: 87277 Disch Hosp >30min
--- NOTE | 2022-11-28 15:39 | CASEMGMT ---
Patient discharging on Eliquis. Savings card applied at [facility] retail pharmacy. WALTER CM in to update patient. RN CM explained cost of medication and if too expensive to discuss with PCP or power house control room operator.
[2022-11-28 16:00] VITALS: BP 110/62; PULSE 67; RESP 16; TEMP 36.7; O2SAT 94
[2022-11-28] MEDS: 0.9 % NaCl (Sterile) Posiflush 10 mL IV (16:55)
[2022-12-03 11:08] LABS: Dopamine, Pl 68 pg/mL (0-48); Epinephrine, Pl <15 pg/mL (0-62); Norepinephrine, Pl 746 pg/mL (0-874)
== END 2022-11-28 17:45 | disposition home or self-care (01) | DRG 281 ==
LOC: ED 23:59 → PCU 11-27 05:19
PROVIDERS: Admitting Provider Hospitalist; Emergency Provider Emergency Medicine; PCP Internal Medicine; Visit Provider Internal Medicine
DX: I48.0 Paroxysmal atrial fibrillation (principal); I21.A1 Myocardial infarction type 2; C15.9 Malignant neoplasm of esophagus, unspecified; C78.02 Secondary malignant neoplasm of left lung; Z94.0 Kidney transplant status; E11.21 Type 2 diabetes mellitus with diabetic nephropathy; E11.22 Type 2 diabetes mellitus with diabetic chronic kidney disease; E11.42 Type 2 diabetes mellitus with diabetic polyneuropathy; E11.65 Type 2 diabetes mellitus with hyperglycemia; Z79.4 Long term (current) use of insulin; Z89.431 Acquired absence of right foot; Z93.1 Gastrostomy status; I12.9 Hypertensive chronic kidney disease with stage 1 through stage 4 chronic kidney disease, or unspecified chronic kidney disease; D63.1 Anemia in chronic kidney disease; N18.2 Chronic kidney disease, stage 2 (mild); I25.10 Atherosclerotic heart disease of native coronary artery without angina pectoris; R19.7 Diarrhea, unspecified; Z96.41 Presence of insulin pump (external) (internal); Z79.899 Other long term (current) drug therapy; Z87.891 Personal history of nicotine dependence
CPT/HCPCS: 36415; 36591; 71275; 80048; 82040; 82330; 82384; 82533; 82607; 82746; 82962; 83010; 83540; 83550; 83615; 83735; 84443; 84484; 85025; 85610; 85730; 93005; 93306; 97802; 99285; J7030; Q9967; A4216

== ENCOUNTER 2023-01-01 10:01 | Outpatient (CLI) | payer OTHER, SELFPAY ==
[2023-01-01 10:11] VITALS: BP 118/57; PULSE 69; RESP 16; TEMP 36.5; O2SAT 93; BMI 30.1
[2023-01-01 10:49] VITALS: BP 124/61; PULSE 67; RESP 16; TEMP 36.4
[2023-01-01 11:49] VITALS: BP 109/51; PULSE 75; RESP 16; TEMP 36.4
[2023-01-01 12:26] VITALS: BP 131/51; PULSE 70; RESP 18; TEMP 35.9; O2SAT 96
== END 2023-01-01 10:02 | disposition home or self-care (01) ==
LOC: MEDOUTP 10:01
PROVIDERS: PCP Internal Medicine; Referring Provider Internal Medicine Hematology & Oncology; Visit Provider Internal Medicine Hematology & Oncology
DX: D50.0 Iron deficiency anemia secondary to blood loss (chronic) (principal)
CPT/HCPCS: 36430; 86850; 86900; 86901; 86920; 86922; J7040; P9016; A4216

== ENCOUNTER → 2023-01-08 | Outpatient (CLI) | payer SELFPAY, OTHER ==
--- NOTE | 2023-01-08 14:00 | CT_ITS ---
EXAM: CT CHEST, ABDOMEN AND PELVIS WITH INTRAVENOUS CONTRAST CLINICAL INDICATION: ESOPHAGEAL CA TECHNIQUE: Helically acquired images were obtained of the chest, abdomen and pelvis with intravenous contrast. This CT exam was performed using one or more of the following dose reduction techniques: automated exposure control, adjustment of the mA and/or kV according to patient size, and/or use of iterative reconstruction technique. CONTRAST: IV 100mL Isovue-300 COMPARISON: CT chest dated 05/23/2022 FINDINGS: CHEST: LUNGS AND PLEURAL SPACES: There is patchy consolidation within the upper lobes which may represent developing pneumonia. There are small moderate bilateral pleural effusions. No mass. HEART: Unremarkable. Heart size is normal. No pericardial effusion. MEDIASTINUM: There is a soft tissue mass within the proximal to mid esophagus that measures 2.8 x 3.5 x 4.1 cm. This is not significantly changed from the reference exam. The esophagus proximal to this portion is distended with gas and fluid. No mediastinal or hilar adenopathy. No hiatal hernia. THYROID: Unremarkable. No thyroid lesions. ABDOMEN: LIVER: Unremarkable. Homogeneous. No focal mass. GALLBLADDER AND BILE DUCTS: Unremarkable. No calcified gallstones. No gallbladder distention or wall edema. No intra- or extrahepatic biliary ductal dilation. PANCREAS: Unremarkable. No focal cystic or solid mass. SPLEEN: Unremarkable. Normal size without focal cystic or solid mass. ADRENALS: There is a mass on the right adrenal gland that measures 2.5 x 2.4 x 2.3 cm. This is not significantly changed from the reference examination. KIDNEYS AND URETERS: Kidneys are atrophic. There is a slightly hyperdense mass on the right kidney that measures 2.3 x 2.1 x 2.3 cm. Further evaluation with ultrasound may be beneficial There are bilateral calyceal stones. There is a transplanted kidney in the right pelvis. There is a cyst in the lower pole the [place] right kidney. No hydronephrosis. STOMACH AND BOWEL: Unremarkable. No stomach or bowel distention. No focal inflammatory change. PELVIS: APPENDIX: No evidence of acute appendicitis. BLADDER: There is mild thickening of the wall the urinary bladder which may be cystitis. REPRODUCTIVE: Unremarkable as visualized. No mass. CHEST, ABDOMEN and PELVIS: INTRAPERITONEAL SPACE: Unremarkable. No ascites or other fluid collection. No free air. BONES/JOINTS: Unremarkable. No suspicious lytic or blastic abnormality. SOFT TISSUES: Unremarkable. No discrete abdominal or pelvic wall hernia. VASCULATURE: Unremarkable. Aorta is non-dilated. No aortic dissection. No obvious central pulmonary embolism although this study was not performed with the pulmonary embolism protocol. LYMPH NODES: Unremarkable. No enlarged lymph nodes. TUBES, LINES AND DEVICES: A percutaneous gastrostomy tube in place. CT/CT Chest, Abd, Pel w/Contrast IMPRESSION: 1. Persistent mass seen within the proximal to mid esophagus compatible with malignancy. The esophagus proximal to this point is distended with gas and fluid. 2. Bilateral pleural effusions larger on the right than on the left. There is patchy consolidation in the upper lobes which may represent developing pneumonia. 3. Hyperdense mass in the right adrenal gland which is not specifically changed and may represent metastatic disease. If indicated further evaluation in phase and out of phase MRI may be beneficial. 4. Solid-appearing mass in the right kidney. Further evaluation with ultrasound may be beneficial. The kidneys are atrophic with a transplanted kidney right pelvis. 5. Thickened wall the urinary bladder which may be due to incomplete distention or cystitis. Electronically Signed: Timothy Cabrera MD at 0:14 EST ,
[2023-01-08] MEDS: 0.9 % NaCl (Sterile) Posiflush 10 mL IV (14:26)
== END | disposition home or self-care (01) ==
PROVIDERS: PCP Internal Medicine; Referring Provider Internal Medicine Hematology & Oncology; Visit Provider Internal Medicine Hematology & Oncology
DX: C15.4 Malignant neoplasm of middle third of esophagus (principal)
CPT/HCPCS: 71260; 74177; Q9967; A4216

== ENCOUNTER 2023-01-14 07:45 | Inpatient (IN) | payer OTHER, SELFPAY ==
[2023-01-14] VITALS (19 sets, daily range): BP systolic 105–153; BP diastolic 49–76; PULSE 67–90; RESP 16–28; TEMP 36.4–37.7; O2SAT 83–100; BMI 29.3; BMI 28.0
--- NOTE | 2023-01-14 07:56 | EKG12_ITS ---
Test Reason : SOB Blood Pressure : / mmHG Vent. Rate : 086 BPM Atrial Rate : 086 BPM P-R Int : 162 ms QRS Dur : 094 ms QT Int : 386 ms P-R-T Axes : 009 -59 032 degrees QTc Int : 461 ms Normal sinus rhythm Left anterior fascicular block Abnormal ECG Confirmed by TRUONG NUÑEZ, DEVON ([id number]), editor sound ADOLFO SIDDIQUI ([id number]) on 01/21/2023 10:48:16 AM Referred By: SUNITA Confirmed By:DEVON GUERIN MD
--- NOTE | 2023-01-14 07:57 | EX.ED.DYSGE1 ---
HPI History of Present Illness Chief Complaint: Alt LOC Narrative Narrative: 72-year-old male past medical history of hypertension, diabetes, with insulin pump presents with altered mental status earlier this morning. He presents via EMS. His also relays history of esophageal cancer that he has been going through chemotherapy since July of this year, over the last 5 to 6 months. He did have radiation therapy, but it did not shrink the size of the esophageal tumor. He was post to see Dr. Anthony today regarding his last testing. They are not going to perform surgery on his esophageal tumor. He presents because of altered mental status and low blood sugar today. They deny any fever but he has been coughing on occasion. No dysuria or hematuria, no abdominal pain, nausea, vomiting or other symptoms. His stated that blood sugar was low this morning but she got it up. His insulin pump is self adjusting. He also complains of generalized weakness and not feeling well afterwards. She was concerned and called EMS because he was difficult to get him this morning. He states that everything was fine yesterday. [facility] Medical History Ambulates with cane Amputation finger Amputation of toe Anemia of chronic disease Atrial fibrillation Chemotherapy adverse reaction Diabetes mellitus, type II Dialysis AV fistula malfunction Esophageal cancer Esophageal cancer Gastric reflux History of steroid therapy HLD (hyperlipidemia) Hyperglycemia due to diabetes mellitus Hypertension Hypertension Hyponatremia Insulin dependent diabetes mellitus NSTEMI (non-ST elevated myocardial infarction) Wears dentures Wears glasses Wears hearing aid Home Medications rosuvastatin 20 mg tablet (Crestor) 20 mg PO QHS cholesterol 11/29/12 [History Last Taken 05/17/15] prednisone 2.5 mg tablet 5 mg PO DAILY steriod 05/11/15 [History Last Taken 04/25/21 08:00] tacrolimus 1 mg capsule, immediate-release (Prograf) 1 mg PO BID anit rejection 05/11/15 [History Last Taken 05/18/15 09:00] insulin aspart U-100 100 unit/mL (3 mL) subcutaneous pen (Novolog FlexPen U-100 Insulin aspart) See Protocol subcut CONT DM 02/06/18 [History Last Taken 02/06/18] lactose-reduced food with fiber 0.06 gram-1.5 kcal/mL oral liquid (Jevity 1.5 Victorino) 237 ml feeding tube .COMPLEX 10/16/22 [History Last Taken Unknown] ondansetron 8 mg disintegrating tablet 8 mg PO Q8H PRN nausea and vomiting 30 days #30 tabs 10/17/22 [Rx Last Taken Unknown] nystatin 100,000 unit/mL oral suspension 5 ml PO .QID 10/24/22 [History Last Taken Unknown] omeprazole 10 mg capsule,delayed release See Rx Instructions feeding tube DAILY reflux 10/24/22 [History Last Taken Unknown] sulfamethoxazole-trimethoprim 1 tab PO DAILY antibiotic 11/26/22 [History Last Taken Unknown] metoprolol tartrate 100 mg tablet 100 mg G-tube BID 30 days #60 tabs 11/28/22 [Rx Last Taken Unknown] amiodarone 200 mg tablet 200 mg PO DAILY #30 tabs 12/17/22 [Rx Last Taken Unknown] apixaban 5 mg tablet (Eliquis) 5 mg PO BID #60 tabs 12/17/22 [Rx Last Taken Unknown] bumetanide 1 mg tablet 1 mg PO DAILY 01/01/23 [History Last Taken Unknown] Allergy/AdvReac Type Severity Reaction Status Date / Time diphenhydramine AdvReac Mild jittery/ Verified 01/01/23 10:14 [From Benadryl] anxious Family History Mother Kidney disease Hypertension High cholesterol Diabetes Father Kidney disease Hypertension High cholesterol Diabetes Surgical History Amputation of foot Hx of kidney transplant Hx of surgical amputation of finger Renal transplant recipient Renal transplant recipient Social History household members: spouse, family and children Smoking Status: Former smoker how long ago did patient quit smoking: Quit~ 50 years prior smoked youth until quit 2 ppd. alcohol intake: former details: Drank heavily in youth, stopped ~ 50 years prior. substance use type: does not use what type of physical activity do you participate in: walking ROS ROS ED ROS Narrative Constitutional: No fever, no chills. Lysed weakness HEENT: No sore throat. No neck pain. No loss of vision. No rhinorrhea. Cardiovascular: No chest pain. No palpitations. No pedal edema. Respiratory: No cough, no shortness of breath. Abdominal: No abdominal pain. No nausea. No vomiting. Genitourinary: No dysuria. No hematuria. Musculoskeletal: No myalgias. No arthralgias. Neurologic: No headaches. No dizziness. No lightheadedness. Altered mental status this morning, difficult to awaken. Skin: No rash. No change in color. Psychiatric: No depression. No anxiety. EXAM Physical Exam Narrative Exam Narrative: Afebrile. Vital signs noted. HEENT: Normocephalic. Atraumatic. PERRL, EOMI. Neck soft and supple. No point tenderness or step off. Cardiovascular: Regular rate and rhythm. No murmurs, rubs, or gallops appreciated. Respiratory: No tachypnea. Decreased breath sounds bilateral bases. Gastrointestinal: Abdomen soft, nontender, with normoactive bowel sounds. No rebound or guarding. PEG tube. Neurological: Awake. Alert. ANO x3. Nonfocal, nonlateralizing. Skin: No rash. Normal color. No pallor. Musculoskeletal: No pedal edema. Full range of motion extremities. Const Vital Signs: 01/14/23 07:46 01/14/23 07:53 01/14/23 08:14 Temperature 100 F H Temperature Source Temporal Pulse Rate 88 87 Respiratory Rate 28 H 28 H Blood Pressure 127/53 H 127/53 H Blood Pressure Mean 77 77 Pulse Ox 83 93 92 Oxygen Delivery Method Room Air Nasal Cannula Nasal Cannula Oxygen Flow Rate (L/min) 3 3 01/14/23 09:00 01/14/23 09:01 Temperature 98.7 F Temperature Source Temporal Pulse Rate 90 87 Respiratory Rate 23 H 19 H Blood Pressure 105/64 105/64 Blood Pressure Mean 77 77 Pulse Ox 95 95 Oxygen Delivery Method Nasal Cannula Oxygen Flow Rate (L/min) 5 MDM MDM MDM Narrative Medical decision making narrative: At 8Although patient is afebrile, he has elevated temperature 100 degrees. Sepsis work-up was pursued. In the differential diagnosis is pneumonia versus COVID/influenza. He may have a urinary tract infection as well but he denies any dysuria or hematuria so it is less likely. Given his diabetes, EKG will be obtained along with troponin. EKG was obtained and interpreted by myself independently as normal sinus rhythm 6 bpm without ectopy or acute ST changes. No STEMI. No significant change from EKG dated November 28, 2022 except there were PVCs at that time. I reviewed his laboratory work and he has slightly elevated white count of 12.8, hemoglobin stable at 7.6, but downward trending. I do not feel he requires a blood transfusion emergently. Platelet count is also low at 121. This appears to be a chronic thrombocytopenia. He appears dehydrated with a sodium of 129 and a chloride of 92. BUN elevated at 26 with creatinine 1.02. He will be bolused a small aliquot of normal saline. High-sensitivity troponin is 53. AST and ALT are normal. Lactic acid is normal at 1.5. I am not concerned for sepsis as the only SIRS criteria that he is meeting would be mainly for the elevated white count. Chest x-ray in 1 view interpreted by myself independently shows bilateral infiltrates diffusely. I reviewed the radiology report which confirms my independent interpretation. His COVID and influenza swabs are negative. Although his urinalysis is still pending he will be started on antibiotics in the form of azithromycin and Rocephin. Given his oxygen requirement as he does not wear oxygen at home, I do feel that his reported mental status change and difficulty awakening may have been secondary to hypoxemia. Patient will be discussed with the hospitalist for admission. I discussed patient with Dr. Allen, and will add a BNP, as the chest x-ray does show more multifocal pneumonia versus fluffy infiltrates from edema. Disposition is admit to the PCU. Currently, patient is in stable condition. History & Record Review Discussion w/independent historian: Patient and Family Additional record(s) reviewed:: Prior ED visit and Prior labs Lab Data Attestation: I reviewed the patient's lab results. Labs: Laboratory Results - last 24 hr 01/14/23 08:02 WBC 12.8 H RBC 3.02 L Hgb 7.6 L Hct 24.5 L MCV 81.1 MCH 25.2 L MCHC 31.0 L RDW Std Deviation 50.5 H RDW Coeff of Ayaka 17.6 H Plt Count 121 L MPV 10.7 Immature Gran % (Auto) 0.900 Neut % (Auto) 89.8 H Lymph % (Auto) 2.6 L [place] % (Auto) 6.6 Eos % (Auto) 0.0 Baso % (Auto) 0.1 Absolute Neuts (auto) 11.5 H Absolute Lymphs (auto) 0.33 L Nucleated RBC % 0 Differential Comment SCANNED Sodium 129 L Potassium 4.3 Chloride 92 L Carbon Dioxide 32.0 Anion Gap 5 BUN 26 H Creatinine 1.02 Estim Creat Clear Calc 69.58 Est GFR (MDRD) Af Amer 93 Est GFR (MDRD) Non-Af 77 BUN/Creatinine Ratio 25.5 H Glucose 130 H Lactic Acid 1.5 Calcium 8.1 L Total Bilirubin 0.60 AST 22 ALT 17 Alkaline Phosphatase 57 Troponin I High Sens 53 Total Protein 5.3 L Albumin 1.9 L Globulin 3.4 Albumin/Globulin Ratio 0.6 L Radiography Chest X-Ray - ED: 1 View and Read by ED Physician Diagnostic Testing: Clinical Impression(s) from Imaging Studies Chest X-Ray 01/14/23 08:25 IMPRESSION: Bilateral pulmonary infiltrates worse on the right side with a nodular density in the right upper lobe. Radiographic follow-up recommended. Electronically Signed: Ramesh Coello MD at 8:51 EST , Management Discussion w/another healthcare provider: Hospitalist (Dr. Yordy Allen) Discharge Plan Dx/Rx/DC Orders Clinical Impression: Gastrostomy tube dependent, Hypoxia, Hx of kidney transplant, Pneumonia, Dehydration Disposition Disposition: Acute Care [facility]
[2023-01-14] MEDS: 0.9% Normal Saline (500mL Bag) 500 ML 1000 ML IV (08:01)
[2023-01-14] MEDS: Acetaminophen 325 MG Tablet 650 MG PO (08:02)
[2023-01-14 08:17] LABS: Absolute Lymphocyte Count 0.33 X10^3/uL (0.83-4.51); Absolute Neutrophil Count 11.5 X10^3/uL (2.0-7.7); Basophil# 0.01 X10^3/uL; Basophil% 0.1 % (0-1); Hematocrit 24.5 % (40-54); Hemoglobin 7.6 g/dL (13.0-16.5); Lymphocyte # 0.33 X10^3/ul (0.83-4.51); Lymphocyte % 2.6 % (19-41); Mean Corpuscular Hgb 25.2 pg (27.0-32.0); Mean Corpuscular Volume 81.1 fL (80-94); Mean Platelet Vol. 10.7 fl (6.2-12.0); Monocyte# 0.84 X10^3/uL; Monocyte% 6.6 % (0-10); NRBC Flagged by Analyzer 0 % (0-5); Neutrophil % 89.8 % (47-70); POSITIVE DIFFERENTIAL YES; Platelet Count 121 K/mm3 (150-450); RBC Distribution Width CV 17.6 % (11.6-14.6); RBC Distribution Width SD 50.5 fl (35.1-43.9); Red Blood Count 3.02 M/mm3 (4.6-6.2); White Blood Count 12.8 K/mm3 (4.4-11.0)
[2023-01-14 08:24] LABS: Differential Indicated SCAN CRITERIA MET
--- NOTE | 2023-01-14 08:25 | RAD_ITS ---
STUDY: X-RAY CHEST REASON FOR EXAM: Male, 72 years old. CAD TECHNIQUE: Single AP portable view of the chest. COMPARISON: Comparison is made with prior study May 23, 2022. FINDINGS: EKG electrodes are seen. A left-sided Port-A-Cath is seen with the tip in the right atrium. There is a 6 cm x 3.5 cm nodular infiltrate in the right upper lobe. Patchy infiltrates also seen in the left upper and left lower lobes as well as the right middle lobe and right lower lobes. Radiographic follow-up is recommended. Normal size heart. Normal mediastinum and wolf. Normal visualized pulmonary arteries. There is atherosclerotic calcification of the aortic arch with tortuosity. There are degenerative changes of the visualized thoracic spine. Normal visualized ribs, clavicles, and shoulders. There is no demonstrated abnormality of the visualized soft tissue structures of the upper abdomen. RAD/Chest 1 View (Portable) IMPRESSION: Bilateral pulmonary infiltrates worse on the right side with a nodular density in the right upper lobe. Radiographic follow-up recommended. Electronically Signed: Ramesh Coello MD at 8:51 EST ,
[2023-01-14 08:36] LABS: ALB/GLOB Ratio 0.6 RATIO (0.9-2.4); AST(SGOT) 22 U/L (15-37); Alanine Aminotransfer ALT/SGPT 17 U/L (16-61); Albumin, Serum 1.9 g/dL (3.2-5.0); Alkaline Phosphatase 57 U/L (45-117); Anion Gap 5 (5-15); BUN 26 mg/dL (7-18); BUN/Creat Ratio 25.5 RATIO (10-20); Calcium,Total 8.1 mg/dL (8.5-10.1); Chloride 92 mmol/L (98-107); Creatinine, Serum 1.02 mg/dL (0.70-1.30); EST Glomerular Filtration Rate 77 mL/min (>60); Est Glom Filt Rate - Afr Amer 93 mL/min (>60); Estimated Creatinine Clearance 69.58 ml/min; Globulin 3.4 g/dL (2.2-4.2); Glucose 130 mg/dL (74-106); Potassium 4.3 mmol/L (3.5-5.1); Protein, Total 5.3 g/dL (6.4-8.2); Sodium Level 129 mmol/L (136-145); Troponin-I HS (w/2H Reflex) 53 pg/mL (3.0-78.0)
[2023-01-14 08:57] LABS: Differential Comment SCANNED
[2023-01-14 09:09] LABS: Lactic Acid 1.5 mmol/L (0.4-1.9)
[2023-01-14] MEDS: Ceftriaxone 2 GM in 0.9% Normal Saline (50mL MB+) 50 ML IV (09:20)
[2023-01-14 09:52] LABS: BNP,B-Type NATRIURETIC PEPTIDE 299.2 pg/mL (0-100)
[2023-01-14 10:12] LABS: Reflex Troponin-HS? (from REC) Y
[2023-01-14 10:53] LABS: Troponin-I HS 128 pg/mL (3.0-78.0)
[2023-01-14] MEDS: Azithromycin 500 MG in Dextrose 5%-Water (250mL Bag) 250 ML 250 MG IV (11:34)
[2023-01-14 12:19] LABS: Mucous, Urine 0 SEEN /hpf (<or=2+)
[2023-01-14 12:24] LABS: Color, Urine Yellow (Yellow); Glucose, Dipstick Normal (Normal); Ketone-Dipstick Negative (Negative); Leukocyte Esterase-Dipstick 100 /ul (Negative); Nitrite-Dipstick Negative (Negative); Occult Blood-Urine 10 /ul (Negative); Protein-Dipstick 15 mg/dl (Negative); Urine Bilirubin Dipstick Negative (Negative); Urine Clarity Sl. Cloudy (Clear); Urine Urobilinogen 1 mg/dl (Normal)
[2023-01-14 12:58] LABS: Squamous Epithelial Cells - UA 10-25 SEEN /hpf (0-5)
[2023-01-14 12:59] LABS: Bacteria 1+ /hpf (None Seen); Red Blood Cells-Urine 0-5 SEEN /hpf (0-5); White Blood Cells 5-10 SEEN /hpf (0-5)
[2023-01-14] MEDS: Tacrolimus Anhydrous 1 MG Capsule PO ×2 (13:21→21:45)
[2023-01-14] MEDS: APIXABAN 5 MG TABLET GT ×2 (13:21→21:45)
[2023-01-14] MEDS: NYSTATIN 500,000 UNIT/5 ML UDC 500000 UNIT PO ×3 (13:22→21:45)
[2023-01-14] MEDS: Metoprolol Tartrate 100 MG Tablet GT ×2 (13:22→21:45)
[2023-01-14] MEDS: predniSONE 5 MG Tablet GT (13:22)
[2023-01-14] MEDS: Amiodarone 200 MG Tablet GT (13:22)
[2023-01-14] MEDS: Jevity 1.5. 1,000 ML Bottle 237 ML GT ×3 (13:42→21:45)
--- NOTE | 2023-01-14 14:41 | CHAPLAIN ---
Type of Pastoral Visit _x__ Initial Visit ___ Follow-up Visit ___ On-call Visit ___ General Patient Visit ___ Spiritual Assessment ___ Family Conference ___ Bereavement ___ Rapid Response ___ Code Blue ___ Other (describe below) Pastoral Care Referral From _x__ Patient _x__ Family ___ Nurse ___ Physician ___ Hardscape Foreman ___ Human Factors Specialist ___ Other (describe below) Sacrament/Intervention _x__ Active listening ___ Anointing ___ Quaker ___ Bereavement ___ Communion ___ Shanell exploration ___ _x__ Life review _x__ Prayer ___ Reconciliation ___ Sacrament of Sick _x__ Supportive presence ___ Wedding ___ Other (describe below) Pastoral Comments patient and family has been very welcoming in previous visits and today as well; pt is getting his nutrition and is awake but soon closes his eyes; pt acknowledges some frustrations with not being able to eat and that he is going along as best as he can; family members are very attentive to his needs; pt welcomes prayer and acknowledges their importance; presence and prayer given with offer of future support as needed
[2023-01-14 14:58] LABS: Troponin-I HS 195 pg/mL (3.0-78.0)
--- NOTE | 2023-01-14 15:15 | RAD_ITS ---
STUDY: X-RAY CHEST REASON FOR EXAM: Male, 72 years old. HYPOXIA TECHNIQUE: Single AP portable view of the chest. COMPARISON: 01/14/2023 at 08 25 FINDINGS: Left internal jugular chest port which is unchanged. No change in the patchy alveolar opacities throughout both lungs consistent with bilateral pneumonia. There is no demonstrated pleural abnormality. There is moderate cardiac enlargement. Normal mediastinum and wolf. Normal visualized pulmonary arteries. Normal visualized aortic arch and descending thoracic aorta. Normal visualized thoracic spine. Normal visualized ribs, clavicles, and shoulders. There is no demonstrated abnormality of the visualized soft tissue structures of the upper abdomen. RAD/Chest 1 View (Portable) IMPRESSION: No change from earlier today. Electronically Signed: Ray Hong MD at 16:46 EST ,
--- NOTE | 2023-01-14 15:16 | HP.PCM.HOS_ITS ---
HPI - General General Date of Admission: 01/14/23 Date of Service: 01/14/23 Chief Complaint: shortness of breath. HPI Narrative MAHAD SULLIVAN, is a 72 M who presents with shortness of breath. He was noted to be confused today and had a low blood sugar. Patient has just been more short of breath and not normally on oxygen. Presented to the emergency room and was actually on 5 L/min of oxygen. Patient had a chest x-ray that showed bilateral infiltrates. Patient received ceftriaxone and azithromycin in the emergency room. The hospital service was contacted for admissions. Patient was a stable and then had an acute episode of hypoxia and shortness of breath where his oxygen dropped down to 50% on nasal cannula. Patient was put on nonrebreather and his sats did come up. Patient did cough up copious amounts of sputum thereafter. [facility] Medical History Ambulates with cane Amputation finger Amputation of toe Anemia of chronic disease Atrial fibrillation Chemotherapy adverse reaction Diabetes mellitus, type II Dialysis AV fistula malfunction Esophageal cancer Esophageal cancer Gastric reflux History of steroid therapy HLD (hyperlipidemia) Hyperglycemia due to diabetes mellitus Hypertension Hypertension Hyponatremia Insulin dependent diabetes mellitus NSTEMI (non-ST elevated myocardial infarction) Wears dentures Wears glasses Wears hearing aid Home Medications rosuvastatin 20 mg tablet (Crestor) 20 mg PO QHS cholesterol 11/29/12 [History Last Taken 05/17/15] prednisone 2.5 mg tablet 5 mg PO DAILY steriod 05/11/15 [History Last Taken 04/25/21 08:00] tacrolimus 1 mg capsule, immediate-release (Prograf) 1 mg PO BID anit rejection 05/11/15 [History Last Taken 05/18/15 09:00] insulin aspart U-100 100 unit/mL (3 mL) subcutaneous pen (Novolog FlexPen U-100 Insulin aspart) See Protocol subcut CONT DM 02/06/18 [History Last Taken 02/06/18] lactose-reduced food with fiber 0.06 gram-1.5 kcal/mL oral liquid (Jevity 1.5 Victorion) 237 ml feeding tube .COMPLEX NUTRITION 10/16/22 [History Last Taken Unknown] ondansetron 8 mg disintegrating tablet 8 mg PO Q8H PRN nausea and vomiting 30 days #30 tabs 10/17/22 [Rx Last Taken Unknown] nystatin 100,000 unit/mL oral suspension 5 ml PO 4X/DAY MOUTH 10/24/22 [History Last Taken Unknown] omeprazole 10 mg capsule,delayed release See Rx Instructions feeding tube DAILY reflux 10/24/22 [History Last Taken Unknown] sulfamethoxazole-trimethoprim 1 tab PO DAILY antibiotic 11/26/22 [History Last Taken Unknown] metoprolol tartrate 100 mg tablet 100 mg G-tube BID 30 days #60 tabs 11/28/22 [Rx Last Taken Unknown] amiodarone 200 mg tablet 200 mg PO DAILY #30 tabs 12/17/22 [Rx Last Taken Unknown] apixaban 5 mg tablet (Eliquis) 5 mg PO BID #60 tabs 12/17/22 [Rx Last Taken Unknown] bumetanide 1 mg tablet 1 mg PO DAILY DIURETIC 01/01/23 [History Last Taken Unknown] Allergy/AdvReac Type Severity Reaction Status Date / Time diphenhydramine AdvReac Mild jittery/ Verified 01/01/23 10:14 [From Benadryl] anxious Family History Mother Kidney disease Hypertension High cholesterol Diabetes Father Kidney disease Hypertension High cholesterol Diabetes Surgical History Amputation of foot Hx of kidney transplant Hx of surgical amputation of finger Renal transplant recipient Renal transplant recipient Social History household members: spouse, family and children Smoking Status: Former smoker how long ago did patient quit smoking: Quit~ 50 years prior smoked youth until quit 2 ppd. alcohol intake: former details: Drank heavily in youth, stopped ~ 50 years prior. substance use type: does not use what type of physical activity do you participate in: walking ROS ROS Narrative Malaise. Short of breath. No fever or chills. Patient cannot swallow given his esophageal cancer. Has been recently coughing up sputum, prior to today. Does have lower extremity edema but no recent change in his weight other than he is lost 40 pounds since diagnosis of esophageal cancer. Vital Signs Vital Signs Vital Signs: 01/14/23 07:46 01/14/23 07:53 01/14/23 08:14 Temperature 37.7 C H Temperature Source Temporal Pulse Rate 88 87 Respiratory Rate 28 H 28 H Respiratory Effort Respiratory Depth Respiratory Pattern Blood Pressure 127/53 H 127/53 H Blood Pressure Mean 77 77 Blood Pressure Source Blood Pressure Position Blood Pressure Location Pulse Ox 83 93 92 Oxygen Delivery Method Room Air Nasal Cannula Nasal Cannula Oxygen Flow Rate (L/min) 3 3 01/14/23 09:00 01/14/23 09:01 01/14/23 10:44 Temperature 37.1 C 36.4 C L Temperature Source Temporal Temporal Pulse Rate 90 87 80 Respiratory Rate 23 H 19 H 16 Respiratory Effort Respiratory Depth Respiratory Pattern Blood Pressure 105/64 105/64 118/63 Blood Pressure Mean 77 77 81 Blood Pressure Source Monitor Blood Pressure Position Semi-Fowlers Blood Pressure Location Right Arm Pulse Ox 95 95 97 Oxygen Delivery Method Nasal Cannula Nasal Cannula Oxygen Flow Rate (L/min) 5 6 01/14/23 11:37 01/14/23 13:22 01/14/23 14:57 Temperature 36.4 C L Temperature Source Temporal Pulse Rate 85 79 Respiratory Rate 26 H Respiratory Effort Normal Non-Labored Respiratory Depth Normal Respiratory Pattern Normal Blood Pressure 147/69 H 136/73 H Blood Pressure Mean 94 Blood Pressure Source Monitor Blood Pressure Position Semi-Fowlers Blood Pressure Location Right Arm Pulse Ox 86 Oxygen Delivery Method Nasal Cannula Non-Rebreather Oxygen Flow Rate (L/min) 2 12 Weight Weight: 88.7 kg Body Mass Index (BMI) 28.0 Physical Exam Const alert Constitutional Narrative: Groggy. On initial evaluation, patient was not any respiratory distress. Subsequent evaluation after he had his acute respiratory failure, patient was listless but awake and interactive. HEENT normocephalic and head/scalp atraumatic Neck no lymphadenopathy and no JVD Resp Resp Narrative: Coarse breath sounds throughout. Tachypnea and labored breathing while on nonrebreather Cardio regular rate, regular rhythm, S1 normal heart sound, S2 normal heart sound and no murmurs GI normal to inspection, nondistended, normoactive bowel sounds, soft to palpation, non-tender and non-distended GI Narrative: PEG tube in place. Extremity Extremity Narrative: LE edema. Dialysis fistula left upper extremity. Neuro oriented x3 and moves all extremities Sensorium / Orientation: awake and alert Psych Psych Narrative: flat affect Results Lab / Micro Data Attestation: I reviewed the patient's lab results. Lab results narrative: CXR showed bilateral patchy infiltrates throughout. Noted on x-rays from today. Final read on the second x-ray from today currently pending but appears to be similar. 01/14/23 08:02 01/14/23 08:02 Labs: Laboratory Results - last 24 hr 01/14/23 08:02: WBC 12.8 H, RBC 3.02 L, Hgb 7.6 L, Hct 24.5 L, MCV 81.1, MCH 25.2 L, MCHC 31.0 L, RDW Std Deviation 50.5 H, RDW Coeff of Ayaka 17.6 H, Plt Count 121 L, MPV 10.7, Immature Gran % (Auto) 0.900, Neut % (Auto) 89.8 H, Lymph % (Auto) 2.6 L, [place] % (Auto) 6.6, Eos % (Auto) 0.0, Baso % (Auto) 0.1, Absolute Neuts (auto) 11.5 H, Absolute Lymphs (auto) 0.33 L, Nucleated RBC % 0, Differential Comment SCANNED, Sodium 129 L, Potassium 4.3, Chloride 92 L, Carbon Dioxide 32.0, Anion Gap 5, BUN 26 H, Creatinine 1.02, Estim Creat Clear Calc 69.58, Est GFR (MDRD) Af Amer 93, Est GFR (MDRD) Non-Af 77, BUN/Creatinine Ratio 25.5 H, Glucose 130 H, Lactic Acid 1.5, Calcium 8.1 L, Total Bilirubin 0.60, AST 22, ALT 17, Alkaline Phosphatase 57, Troponin I High Sens 53, B-Natriuretic Peptide 299.2 H, Total Protein 5.3 L, Albumin 1.9 L, Globulin 3.4, Albumin/Globulin Ratio 0.6 L 01/14/23 10:20: Troponin I High Sens 128 H* 01/14/23 12:10: Urine Color Yellow, Urine Clarity Sl. Cloudy, Urine pH 7.0, Ur Specific [place] 1.010, Urine Protein 15 H, Urine Glucose (UA) Normal, Urine Ketones Negative, Urine Occult Blood 10 H, Urine Nitrite Negative, Urine Bilirubin Negative, Urine Urobilinogen 1 H, Ur Leukocyte Esterase 100 H, Urine RBC 0-5 SEEN, Urine WBC 5-10 SEEN, Ur Squamous Epith Cells 10-25 SEEN, Urine Bacteria 1+, Urine Mucus 0 SEEN 01/14/23 14:02: Troponin I High Sens 195 H* Micro: Microbiology 01/14/23 07:59 Nasal Secretion SARS-CoV-2 & FLU Antigen (Rapid) - Final Radiology Impression Chest X-Ray 01/14/23 08:25 IMPRESSION: Bilateral pulmonary infiltrates worse on the right side with a nodular density in the right upper lobe. Radiographic follow-up recommended. Electronically Signed: Ramesh Coello MD at 8:51 EST , Assessment & Plan Assessment/Plan (1) Acute hypoxic respiratory failure: PLAN: Unclear etiology at this time. COVID-19 and influenza rapid test were negative. Given his diffuse pattern, concerning for this being viral so we will check a respiratory viral panel. Could also be atypical pneumonia so patient will continue be on antibiotics. Patient did receive ceftriaxone and azithromycin in the emergency room. Given the patient's seeming immunocompromise status, would broaden his antibiotics to vancomycin and PIP Tazo. Cannot rule out this being CHF given his pattern so we will do a furosemide challenge as well. After patient's event where his pulse ox dropped down to 50%, patient did cough up copious amounts of sputum. Pulmonary toilet. As patient cannot swallow given esophageal cancer, suction will be at bedside. Because of concern for pneumonia, will check urinary antigens for septic coccus and Legionella, sputum culture. Additionally check a respiratory viral panel and check COVID PCR. ABG after vent showed pH 7.43, PCO2 42.9 and PO2 of 69. Given the acute onset and the fact that he coughed up copious amounts of sputum, I suspect that this was due to a mucous plug. PLAN: Plan Chronic conditions * Status post renal transplant: Continue with prednisone, tacrolimus. While the patient is on vancomycin, will hold off on the Bactrim. * DM type 1: Patient uses insulin pump at home. With his issues with hypoglycemia and the fact that we do not have a policy here for an insulin pump, the risk of using insulin pump here unchecked poses serious, severe consequences including profound hypoglycemia. Patient will be on a sliding scale insulin and will add some low-dose glargine for now * Esophageal cancer: Status post PEG tube. Patient NPO. Patient to get medications as well as tube feeds through his PEG tube. Tube feeds will be continued with Jevity. * Atrial fibrillation: Anticoagulant with apixaban. Continue with metoprolol. VTE prophylaxis not indicated as patient is already anticoagulated. CODE STATUS: Addressed with the patient and his . Patient be full code. Charges/Coding Visit Charges Inpatient E&M: 09696 Init Hosp L3
[2023-01-14 15:26] LABS: Allen Test Positive; Base Excess 4 mmol/L (-2 to +2); Bicarbonate 28.7 mmol/L (22-26); Blood Gas Specimen Type ART; Mode Not entered; O2 Delivery Device NRB; PO2 69 mmHG (75-100); SITE R Radial; SO2 94 % (95-99); Total Carbon Dioxide 30 mmol/L; pCO2 42.9 mmHg (35-45); pH 7.43 (7.35-7.45)
[2023-01-14] MEDS: Furosemide 40 MG/4 ML Vial IV (15:53)
[2023-01-14] MEDS: Vancomycin HCl 2,000 MG in 0.9% Normal Saline (500mL Bag) 500 ML 250 MG IV (16:23)
[2023-01-14] MEDS: Insulin Lispro 100 UNIT/ML INSULN.PEN SC ×2 (17:57→21:48)
[2023-01-14 18:12] LABS: Bedside Glucose 151 mg/dL (74-106)
[2023-01-14] MEDS: Ipratropium/Albuterol Sulfate 3 ML AMPUL.NEB INHALATION (19:35)
--- NOTE | 2023-01-14 20:00 | PCM.RX.CS ---
Consult Antibiotic Management Pharmacy has been consulted to manage selected antiobiotic: Vancomycin Type of Intervention Type of Consult: New start Suspected Infection Suspected Infection: Pneumonia Labs Labs: Sodium 129 mmol/L (136-145) L 01/14/23 08:02 Potassium 4.3 mmol/L (3.5-5.1) 01/14/23 08:02 Chloride 92 mmol/L (98-107) L 01/14/23 08:02 Carbon Dioxide 32.0 mmol/L (21.0-32.0) 01/14/23 08:02 Anion Gap 5 (5-15) 01/14/23 08:02 BUN 26 mg/dL (7-18) H 01/14/23 08:02 Creatinine 1.02 mg/dL (0.70-1.30) 01/14/23 08:02 Est GFR (MDRD) Af Amer 93 mL/min (>60) 01/14/23 08:02 Est GFR (MDRD) Non-Af 77 mL/min (>60) 01/14/23 08:02 BUN/Creatinine Ratio 25.5 RATIO (10-20) H 01/14/23 08:02 Glucose 130 mg/dL (74-106) H 01/14/23 08:02 Microbiology Microbiology: Microbiology 01/14/23 15:40 Mucosa - Nasopharyngeal Coronavirus COVID-19 PCR - Final 01/14/23 15:40 Mucosa - Nasopharyngeal Respiratory Panel (PCR) - Final 01/14/23 15:40 Urine, Random Legionella Antigen - Final 01/14/23 15:40 Urine, Random Streptococcus pneumoniae Antigen (M - Final 01/14/23 07:59 Nasal Secretion SARS-CoV-2 & FLU Antigen (Rapid) - Final Goal Trough Goal Trough: 15-20 mcg/mL Pharmacy Plan for Drug Dosing Pharmacy Plan for Drug Dosing: NEW START IV VANCOMYCIN Consulting Physician: Dr. Allen Indication: Respiratory failure/ Pneumonia Goal Trough: 15-20 SrCr: 1.02 CrCl: 69 mL/min Comments: Patient had a loading dose of 2000mg IV x1 administered 01/14/23 @1623 Vancomycin Dose: 1000mg IV Q12hr to start 01/15/23 @0400 Pending Level: 01/16/23 @0330, prior to 4th total dose of vancomycin per protocol Pharmacy Service will continue to monitor and adjust dosing as required.
[2023-01-14] MEDS: Atorvastatin Calcium 40 MG Tablet GT (21:45)
[2023-01-14] MEDS: Piperacil/Tazobactam 3.375 GM in 0.9% Normal Saline (50mL MB+) 50 ML IV (21:46)
[2023-01-14] MEDS: Insulin Glargine-YFGN 100 UNIT/ML Pen 10 UNIT SC (21:49)
[2023-01-14 23:32] LABS: Bedside Glucose 330 mg/dL (74-106)
[2023-01-14 23:47] LABS: Bedside Glucose 237 mg/dL (74-106)
[2023-01-15] VITALS (18 sets, daily range): BP systolic 115–167; BP diastolic 48–70; PULSE 76–106; RESP 12–27; TEMP 36.6–36.9; O2SAT 82–100
[2023-01-15] MEDS: Albuterol 2.5 MG/3 ML VIAL.NEB. INHALATION (01:57)
[2023-01-15] MEDS: 0.9 % NaCl (Sterile) Posiflush 10 mL IV (01:59)
[2023-01-15] MEDS: Furosemide 40 MG/4 ML Vial IV (01:59)
[2023-01-15 02:48] LABS: Allen Test Positive; Base Excess 7 mmol/L (-2 to +2); Bicarbonate 30.4 mmol/L (22-26); Blood Gas Specimen Type ART; Mode Not entered; O2 Delivery Device Cannula; PO2 42 mmHG (75-100); SITE R Radial; SO2 80 % (95-99); Total Carbon Dioxide 32 mmol/L; pCO2 43.2 mmHg (35-45); pH 7.46 (7.35-7.45)
--- NOTE | 2023-01-15 02:59 | PCM.HOSP.N ---
Hospitalist Note Patient decompensated from a respiratory standpoint with increasing work of breathing and hypoxia. We did obtain a blood gas at the time of respiratory distress and showed a pH of 7.46/PCO2 of 43.2 and a PO2 of 42 with an oxygen saturation of 80%. We transitioned him from nasal cannula to BiPAP to ease work of breathing. His tachypnea improved some and his sats have improved to 94%. With his immunosuppression he could also have an atypical infection. Will add azithromycin and consult pulmonary medicine. Patient did want to have 1 dose of azithromycin at the time of presentation the emergency department.
[2023-01-15] MEDS: Vancomycin IV 1,000 MG/200 ML BAG 200 MG IV ×2 (04:36→17:00)
[2023-01-15 06:04] LABS: Absolute Lymphocyte Count 0.24 X10^3/uL (0.83-4.51); Basophil# 0.02 X10^3/uL; Basophil% 0.2 % (0-1); Hematocrit 26.1 % (40-54); Lymphocyte # 0.24 X10^3/ul (0.83-4.51); Lymphocyte % 2.4 % (19-41); Mean Corp Hgb Conc 30.7 g/dL (32-36); Mean Corpuscular Volume 81.6 fL (80-94); Mean Platelet Vol. 10.8 fl (6.2-12.0); Monocyte# 0.71 X10^3/uL; NRBC Flagged by Analyzer 0 % (0-5); Neutrophil % 89.1 % (47-70); POSITIVE DIFFERENTIAL YES; Platelet Count 124 K/mm3 (150-450); RBC Distribution Width CV 17.9 % (11.6-14.6); RBC Distribution Width SD 51.8 fl (35.1-43.9); White Blood Count 10.1 K/mm3 (4.4-11.0)
[2023-01-15 06:09] LABS: Differential Indicated SCAN CRITERIA MET
[2023-01-15 06:40] LABS: Anion Gap 11 (5-15); BUN 25 mg/dL (7-18); BUN/Creat Ratio 23.4 RATIO (10-20); Calcium,Total 8.5 mg/dL (8.5-10.1); Chloride 92 mmol/L (98-107); Creatinine, Serum 1.07 mg/dL (0.70-1.30); EST Glomerular Filtration Rate 73 mL/min (>60); Est Glom Filt Rate - Afr Amer 88 mL/min (>60); Estimated Creatinine Clearance 66.33 ml/min; Glucose 411 mg/dL (74-106); Potassium 4.3 mmol/L (3.5-5.1); Sodium Level 132 mmol/L (136-145)
[2023-01-15] MEDS: Piperacil/Tazobactam 3.375 GM in 0.9% Normal Saline (50mL MB+) 50 ML IV ×3 (06:41→20:58)
[2023-01-15 06:42] LABS: Differential Comment SCANNED
[2023-01-15] MEDS: Insulin Lispro 100 UNIT/ML INSULN.PEN SC ×3 (06:49→20:54)
[2023-01-15 07:10] LABS: Bedside Glucose 394 mg/dL (74-106)
[2023-01-15] MEDS: Ipratropium/Albuterol Sulfate 3 ML AMPUL.NEB INHALATION ×4 (07:32→20:22)
--- NOTE | 2023-01-15 08:07 | EX.PCM.CONCC ---
Assessment & Plan Assessment/Plan (1) Acute hypoxic respiratory failure: PLAN: Plan RECOMMENDATIONS: 1. Continue empiric broad-spectrum antimicrobials. 2. Continue to wean supplemental oxygen to maintain saturations at or above 90%. 3. Empiric BiPAP therapy with naps and nightly. 4. Encourage incentive spirometer use and mobilize patient as tolerated. IMPRESSIONS: 1. Shortness of breath and hypoxemia Unclear etiology for the patient's acute decompensation last evening. Possibilities could include mucous plugging leading to respiratory distress versus panic attacks/anxiety. The patient responded quite well to BiPAP therapy. He has been weaned back to supplemental oxygen at 4 L/min. Overall, the patient appears to be clinically improving on antimicrobial therapy, which I would recommend be continued without change, to address his underlying pneumonia. I am going to provide the patient with an incentive spirometer today and encourage its use. I advised the nursing staff to wean his supplemental oxygen to maintain saturations at or above 90%. 2. History of coronary artery disease/atrial fibrillation/diabetes mellitus/renal transplantation/esophageal cancer status postchemotherapy Complicates care, management, recovery and prognosis. Continue home medications as indicated. This note was generated with [employer] dictation software. It may contain incorrect words, spelling, and punctuation that were not noted in checking the note before signing. HPI Consult Data Date of Consult: 01/15/23 HPI Narrative Reason for Consultation: Hypoxemia HPI Narrative: The patient is a 72-year-old male, with a history as outlined below, who presented to the emergency department on January 14 with shortness of breath, altered mentation and hypoglycemia. The patient has a known history of coronary artery disease, atrial fibrillation, diabetes mellitus, renal transplant secondary to diabetic nephropathy and esophageal cancer status postchemotherapy. Due to his history of esophageal cancer, the patient receives all of his nutrition via G-tube. He has not taken any nutrition by mouth. The patient reportedly does not utilize supplemental oxygen at his baseline. He has never been diagnosed with sleep apnea previously. On presentation to the emergency department, the patient was documented to have a temperature of 100 ?F but was otherwise hemodynamically stable. He was documented to be saturating 83% on room air. Initial laboratory evaluation revealed a white blood cell count of 13,000. Hemoglobin was noted to be 7.6 g/dL with a platelet count of 121,000. Chemistry profile was notable for a sodium of 129 and creatinine of 1.02. Lactate was within normal limits. Troponin was elevated at 128 with a BNP of 299. Chest x-ray demonstrated bilateral infiltrates with a density in the right upper lobe. The patient was ultimately placed on antimicrobials and admitted to the progressive care unit for further management. During the medical scheduler hours of January 15, the patient was noted to have increasing work of breathing and worsening hypoxemia. The patient was transition from nasal cannula supplemental O2 to BiPAP therapy. Azithromycin was added to his antimicrobial regimen over concerns for potential atypical pathogens. [facility] Medical History Ambulates with cane Amputation finger Amputation of toe Anemia of chronic disease Atrial fibrillation Chemotherapy adverse reaction Diabetes mellitus, type II Dialysis AV fistula malfunction Esophageal cancer Esophageal cancer Gastric reflux History of steroid therapy HLD (hyperlipidemia) Hyperglycemia due to diabetes mellitus Hypertension Hypertension Hyponatremia Insulin dependent diabetes mellitus NSTEMI (non-ST elevated myocardial infarction) Wears dentures Wears glasses Wears hearing aid Home Medications rosuvastatin 20 mg tablet (Crestor) 20 mg PO QHS cholesterol 11/29/12 [History Last Taken 05/17/15] prednisone 2.5 mg tablet 5 mg PO DAILY steriod 05/11/15 [History Last Taken 04/25/21 08:00] tacrolimus 1 mg capsule, immediate-release (Prograf) 1 mg PO BID anit rejection 05/11/15 [History Last Taken 05/18/15 09:00] insulin aspart U-100 100 unit/mL (3 mL) subcutaneous pen (Novolog FlexPen U-100 Insulin aspart) See Protocol subcut CONT DM 02/06/18 [History Last Taken 02/06/18] lactose-reduced food with fiber 0.06 gram-1.5 kcal/mL oral liquid (Jevity 1.5 Victorino) 237 ml feeding tube .COMPLEX NUTRITION 10/16/22 [History Last Taken Unknown] ondansetron 8 mg disintegrating tablet 8 mg PO Q8H PRN nausea and vomiting 30 days #30 tabs 10/17/22 [Rx Last Taken Unknown] nystatin 100,000 unit/mL oral suspension 5 ml PO 4X/DAY MOUTH 10/24/22 [History Last Taken Unknown] omeprazole 10 mg capsule,delayed release See Rx Instructions feeding tube DAILY reflux 10/24/22 [History Last Taken Unknown] sulfamethoxazole-trimethoprim 1 tab PO DAILY antibiotic 11/26/22 [History Last Taken Unknown] metoprolol tartrate 100 mg tablet 100 mg G-tube BID 30 days #60 tabs 11/28/22 [Rx Last Taken Unknown] amiodarone 200 mg tablet 200 mg PO DAILY #30 tabs 12/17/22 [Rx Last Taken Unknown] apixaban 5 mg tablet (Eliquis) 5 mg PO BID #60 tabs 12/17/22 [Rx Last Taken Unknown] bumetanide 1 mg tablet 1 mg PO DAILY DIURETIC 01/01/23 [History Last Taken Unknown] Allergy/AdvReac Type Severity Reaction Status Date / Time diphenhydramine AdvReac Mild jittery/ Verified 01/01/23 10:14 [From Benbrisal] anxious Family History Mother Kidney disease Hypertension High cholesterol Diabetes Father Kidney disease Hypertension High cholesterol Diabetes Surgical History Amputation of foot Hx of kidney transplant Hx of surgical amputation of finger Renal transplant recipient Renal transplant recipient Social History household members: spouse, family and children Smoking Status: Former smoker how long ago did patient quit smoking: Quit~ 50 years prior smoked youth until quit 2 ppd. alcohol intake: former details: Drank heavily in youth, stopped ~ 50 years prior. substance use type: does not use what type of physical activity do you participate in: walking ROS ROS Narrative 10 systems were reviewed with pertinent positives as noted in the HPI above. Physical Exam Const alert and no apparent distress Constitutional Narrative: Family is present at the bedside. General Appearance: cooperative HEENT normocephalic and head/scalp atraumatic Eyes PERRL, EOMs intact bilaterally and conjunctivae normal Neck supple General: trachea midline Chest inspection of chest normal Resp normal respiratory effort and no use of accessory muscles Effort and Inspection: able to speak in complete sentences Auscultation: rales Cardio regular rate and regular rhythm GI normal to inspection, nondistended, normoactive bowel sounds Inspection: GI tube present Extremity no clubbing, cyanosis or edema Skin no rashes or lesions noted Neuro CN's II-XII intact bilaterally, moves all extremities and no focal motor deficits Psych cooperative and affect normal Lab / Micro Data 01/15/23 05:48 01/15/23 05:48 Labs: Laboratory Results - last 24 hr 01/14/23 08:02: WBC 12.8 H, RBC 3.02 L, Hgb 7.6 L, Hct 24.5 L, MCV 81.1, MCH 25.2 L, MCHC 31.0 L, RDW Std Deviation 50.5 H, RDW Coeff of [place] 17.6 H, Plt Count 121 L, MPV 10.7, Immature Gran % (Auto) 0.900, Neut % (Auto) 89.8 H, Lymph % (Auto) 2.6 L, [place] % (Auto) 6.6, Eos % (Auto) 0.0, Baso % (Auto) 0.1, Absolute Neuts (auto) 11.5 H, Absolute Lymphs (auto) 0.33 L, Nucleated RBC % 0, Differential Comment SCANNED, Sodium 129 L, Potassium 4.3, Chloride 92 L, Carbon Dioxide 32.0, Anion Gap 5, BUN 26 H, Creatinine 1.02, Estim Creat Clear Calc 69.58, Est GFR (MDRD) Af Amer 93, Est GFR (MDRD) Non-Af 77, BUN/Creatinine Ratio 25.5 H, Glucose 130 H, Lactic Acid 1.5, Calcium 8.1 L, Total Bilirubin 0.60, AST 22, ALT 17, Alkaline Phosphatase 57, Troponin I High Sens 53, B-Natriuretic Peptide 299.2 H, Total Protein 5.3 L, Albumin 1.9 L, Globulin 3.4, Albumin/Globulin Ratio 0.6 L 01/14/23 10:20: Troponin I High Sens 128 H* 01/14/23 12:10: Urine Color Yellow, Urine Clarity Sl. Cloudy, Urine pH 7.0, Ur Specific [place] 1.010, Urine Protein 15 H, Urine Glucose (UA) Normal, Urine Ketones Negative, Urine Occult Blood 10 H, Urine Nitrite Negative, Urine Bilirubin Negative, Urine Urobilinogen 1 H, Ur Leukocyte Esterase 100 H, Urine RBC 0-5 SEEN, Urine WBC 5-10 SEEN, Ur Squamous Epith Cells 10-25 SEEN, Urine Bacteria 1+, Urine Mucus 0 SEEN 01/14/23 14:02: Troponin I High Sens 195 H* 01/14/23 17:52: POC Glucose 151 H 01/14/23 21:48: POC Glucose 237 H 01/14/23 23:14: POC Glucose 330 H 01/15/23 05:48: WBC 10.1, RBC 3.20 L, Hgb 8.0 L, Hct 26.1 L, MCV 81.6, MCH 25.0 L, MCHC 30.7 L, RDW Std Deviation 51.8 H, RDW Coeff of [place] 17.9 H, Plt Count 124 L, MPV 10.8, Immature Gran % (Auto) 1.300 H, Neut % (Auto) 89.1 H, Lymph % (Auto) 2.4 L, [place] % (Auto) 7.0, Eos % (Auto) 0.0, Baso % (Auto) 0.2, Absolute Neuts (auto) 9.0 H, Absolute Lymphs (auto) 0.24 L, Nucleated RBC % 0, Differential Comment SCANNED, Sodium 132 L, Potassium 4.3, Chloride 92 L, Carbon Dioxide 29.0, Anion Gap 11, BUN 25 H, Creatinine 1.07, Estim Creat Clear Calc 66.33, Est GFR (MDRD) Af Amer 88, Est GFR (MDRD) Non-Af 73, BUN/Creatinine Ratio 23.4 H, Glucose 411 H, Calcium 8.5 01/15/23 06:47: POC Glucose 394 H Micro: Microbiology 01/14/23 15:40 Mucosa - Nasopharyngeal Coronavirus COVID-19 PCR - Final 01/14/23 15:40 Mucosa - Nasopharyngeal Respiratory Panel (PCR) - Final 01/14/23 15:40 Urine, Random Legionella Antigen - Final 01/14/23 15:40 Urine, Random Streptococcus pneumoniae Antigen (M - Final 01/14/23 07:59 Nasal Secretion SARS-CoV-2 & FLU Antigen (Rapid) - Final ABG Data ABG results: ABG 01/14/23 01/15/23 15:22 02:44 Specimen Type ART ART Sample Site R Radial R Radial pH 7.43 7.46 H Bicarbonate Actual 28.7 H 30.4 H Total CO2 30 32 Base Excess 4 H 7 H O2 Saturation 94 L 80 L O2 % 100.0 5.0 ABG pCO2 42.9 43.2 ABG pO2 69 L 42 L Higinio Test Positive Positive O2 Delivery Device NRB Cannula Vent Mode Not entered Not entered Radiology Impression Chest X-Ray 01/14/23 08:25 IMPRESSION: Bilateral pulmonary infiltrates worse on the right side with a nodular density in the right upper lobe. Radiographic follow-up recommended. Electronically Signed: Ramesh Coello MD at 8:51 EST , Chest X-Ray 01/14/23 15:15 IMPRESSION: No change from earlier today. Electronically Signed: Ray Hong MD at 16:46 EST , Charges/Coding Visit Charges Inpatient E&M: 73422 Init Hosp L3
[2023-01-15] MEDS: Jevity 1.5. 1,000 ML Bottle 237 ML GT ×5 (08:37→20:59)
[2023-01-15] MEDS: predniSONE 5 MG Tablet GT (08:37)
[2023-01-15] MEDS: Lansoprazole 15 MG Capsule.DR GT (08:38)
[2023-01-15] MEDS: Amiodarone 200 MG Tablet GT (08:38)
[2023-01-15] MEDS: APIXABAN 5 MG TABLET GT ×2 (08:38→20:57)
[2023-01-15] MEDS: Metoprolol Tartrate 100 MG Tablet GT ×2 (08:39→20:57)
[2023-01-15] MEDS: NYSTATIN 500,000 UNIT/5 ML UDC 500000 UNIT PO ×4 (08:39→20:59)
[2023-01-15] MEDS: Tacrolimus Anhydrous 1 MG Capsule PO ×2 (08:40→20:59)
--- NOTE | 2023-01-15 09:07 | PN.HOSP_ITS ---
Reason for Visit Reason for Visit: Diagnoses Acute respiratory failure with hypoxia (01/14/23) Subjective Subjective Had repeat hypoxic episode last night. Placed on BiPAP and has improved down to 3 L. Still coughing up phlegm but less than yesterday. Objective Data Objective Data Vital Signs: Vital Signs Temp Pulse Resp BP Pulse Ox O2 Del Method O2 Flow Rate 36.8 C 95 20 H 121/51 H 94 Nasal Cannula 5 01/15/23 03:00 01/15/23 08:39 01/15/23 07:33 01/15/23 08:39 01/15/23 07:33 01/15/23 07:33 01/15/23 07:33 FiO2 30 01/15/23 05:39 Oxygen Flow Rate (L/min) 5 Oxygen Delivery Method Nasal Cannula Weight: 88.7 kg Body Mass Index (BMI) 28.0 Intake & Output: Intake and Output for Last 24 Hours 01/13/23 01/14/23 01/15/23 23:59 23:59 23:59 Intake Total 1762 / 1762 250 / 250 Output Total 1000 / 1000 500 / 500 Balance 762 / 762 -250 / -250 Lab / Micro Data 01/15/23 05:48 01/15/23 05:48 Labs: Laboratory Results - last 24 hr 01/14/23 08:02: Lactic Acid 1.5, B-Natriuretic Peptide 299.2 H 01/14/23 10:20: Troponin I High Sens 128 H* 01/14/23 12:10: Urine Color Yellow, Urine Clarity Sl. Cloudy, Urine pH 7.0, Ur Specific [place] 1.010, Urine Protein 15 H, Urine Glucose (UA) Normal, Urine Ketones Negative, Urine Occult Blood 10 H, Urine Nitrite Negative, Urine Bilirubin Negative, Urine Urobilinogen 1 H, Ur Leukocyte Esterase 100 H, Urine RBC 0-5 SEEN, Urine WBC 5-10 SEEN, Ur Squamous Epith Cells 10-25 SEEN, Urine Bacteria 1+, Urine Mucus 0 SEEN 01/14/23 14:02: Troponin I High Sens 195 H* 01/14/23 17:52: POC Glucose 151 H 01/14/23 21:48: POC Glucose 237 H 01/14/23 23:14: POC Glucose 330 H 01/15/23 05:48: WBC 10.1, RBC 3.20 L, Hgb 8.0 L, Hct 26.1 L, MCV 81.6, MCH 25.0 L, MCHC 30.7 L, RDW Std Deviation 51.8 H, RDW Coeff of [place] 17.9 H, Plt Count 124 L, MPV 10.8, Immature Gran % (Auto) 1.300 H, Neut % (Auto) 89.1 H, Lymph % (Auto) 2.4 L, [place] % (Auto) 7.0, Eos % (Auto) 0.0, Baso % (Auto) 0.2, Absolute Neuts (auto) 9.0 H, Absolute Lymphs (auto) 0.24 L, Nucleated RBC % 0, Differential Comment SCANNED, Sodium 132 L, Potassium 4.3, Chloride 92 L, Carbon Dioxide 29.0, Anion Gap 11, BUN 25 H, Creatinine 1.07, Estim Creat Clear Calc 66.33, Est GFR (MDRD) Af Amer 88, Est GFR (MDRD) Non-Af 73, BUN/Creatinine Ratio 23.4 H, Glucose 411 H, Calcium 8.5 01/15/23 06:47: POC Glucose 394 H Micro: Microbiology 01/14/23 15:40 Mucosa - Nasopharyngeal Coronavirus COVID-19 PCR - Final 01/14/23 15:40 Mucosa - Nasopharyngeal Respiratory Panel (PCR) - Final 01/14/23 15:40 Urine, Random Legionella Antigen - Final 01/14/23 15:40 Urine, Random Streptococcus pneumoniae Antigen (M - Final 01/14/23 07:59 Nasal Secretion SARS-CoV-2 & FLU Antigen (Rapid) - Final ABG Data ABG results: ABG 01/14/23 01/15/23 15:22 02:44 Specimen Type ART ART Sample Site R Radial R Radial pH 7.43 7.46 H Bicarbonate Actual 28.7 H 30.4 H Total CO2 30 32 Base Excess 4 H 7 H O2 Saturation 94 L 80 L O2 % 100.0 5.0 ABG pCO2 42.9 43.2 ABG pO2 69 L 42 L Higinio Test Positive Positive O2 Delivery Device NRB Cannula Vent Mode Not entered Not entered Radiography Diagnostic Testing: Radiology Impression Chest X-Ray 01/14/23 15:15 IMPRESSION: No change from earlier today. Electronically Signed: Ray Hong MD at 16:46 EST , Physical Exam Const alert and no apparent distress HEENT head/scalp atraumatic Resp normal respiratory effort, no retractions, no use of accessory muscles and clear to auscultation bilaterally Cardio regular rate, regular rhythm, S1 normal heart sound and S2 normal heart sound GI normal to inspection, nondistended, normoactive bowel sounds Neuro oriented x3 Sensorium / Orientation: awake and alert Assessment & Plan Assessment/Plan (1) Acute hypoxic respiratory failure: PLAN: Unclear etiology at this time. COVID-19 and influenza rapid test were negative. Given his diffuse pattern, concerning for this being viral so we will check a respiratory viral panel. Could also be atypical pneumonia so patient will continue be on antibiotics. Patient did receive ceftriaxone and azithromycin in the emergency room. Given the patient's seeming immunocompromise status, would broaden his antibiotics to vancomycin and PIP Tazo. Cannot rule out this being CHF given his pattern so we will do a furosemide challenge as well. After patient's event where his pulse ox dropped down to 50%, patient did cough up copious amounts of sputum. I suspect he may have mucous plugging. Pulmonary toilet. As patient cannot swallow given esophageal cancer, suction will be at bedside. Because of concern for pneumonia, will check urinary antigens for septic coccus and Legionella, sputum culture. Additionally check a respiratory viral panel and check COVID PCR. ABG after vent showed pH 7.43, PCO2 42.9 and PO2 of 69. Given the acute onset and the fact that he coughed up copious amounts of sputum, I suspect that this was due to a mucous plug. Strep and legionella antigens negative. PLAN: Plan Chronic conditions * Status post renal transplant: Continue with prednisone, tacrolimus. While the patient is on vancomycin, will hold off on the Bactrim. * DM type 1: Patient uses insulin pump at home. With his issues with hypoglycemia and the fact that we do not have a policy here for an insulin pump, the risk of using insulin pump here unchecked poses serious, severe consequences including profound hypoglycemia. Patient will be on a sliding scale insulin and will add some low-dose glargine for now. Increase glargine dosing. Add prandial insulin. * Esophageal cancer: Status post PEG tube. Patient NPO. Patient to get medications as well as tube feeds through his PEG tube. Tube feeds will be continued with Jevity. * Atrial fibrillation: Anticoagulant with apixaban. Continue with metoprolol. VTE prophylaxis not indicated as patient is already anticoagulated. CODE STATUS: Addressed with the patient and his . Patient be full code. Charges/Coding Visit Charges Inpatient E&M: 88211 Subs Hosp L2
[2023-01-15 09:28] LABS: Bedside Glucose 390 mg/dL (74-106)
[2023-01-15] MEDS: Insulin Glargine-YFGN 100 UNIT/ML Pen 20 UNIT SC ×2 (10:08→20:55)
[2023-01-15] MEDS: Azithromycin 500 MG in Dextrose 5%-Water (250mL Bag) 250 ML 250 MG IV (11:13)
[2023-01-15] MEDS: Flu Vacc QS2023-24(65YR UP)/PF 240 MCG/0.7 ML Syringe IM (11:15)
[2023-01-15] MEDS: Insulin Lispro 100 UNIT/ML INSULN.PEN 8 UNIT SC ×2 (11:17→20:53)
[2023-01-15 11:48] LABS: Bedside Glucose 430 mg/dL (74-106)
--- NOTE | 2023-01-15 14:10 | CASEMGMT ---
WALTER WILLIAMSON Assessment: Face to Face with pt and son for initial transition planning/care coordination assessment. Pt in chair with eyes closed. Pt states pt just got back from a walk. She states she can answer assessment questions. WALTER WILLIAMSON introduced self and role at [facility], pt voices understanding and consents to assessment. Care providers, pharmacy, and demographics verified/updated. Admitting Dx: resp failure PCP:Jessica Specialists:silvana Garcia; Eulalia, pod; Lalo, opt; Gabrielle, onc Preferred Pharmacy: [facility] Insurance: [employer] Prescription Benefit: no LNOK: Sonia Zuleta, Living Arrangements: Pt lives with in a single story home with no steps to enter. states pt is mostly I in ADL's but she assists with LB dressing. Pt dtr lives very close and can also assist. 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 DME:TF with supplies and feedings, BP cuff, BSC, FWW, w/c, insulin pump, cane, CGM with sufficient supplies HHC/SNF: [facility] HHC and [facility] in the past, denies SNF. Pt states no concerns with going home at time of dc. Pt with oxygen on, WALTER WILLIAMSON to follow. Pt does have solar electricity and a backup generator. Pt states no further concerns/needs. CM to follow. Advised pt to ask CM if any further question/concerns/needs arise, voices understanding. Pt Goal: Home Plan: Home, follow oxygen.
[2023-01-15] MEDS: Insulin Lispro 100 UNIT/ML INSULN.PEN 20 UNIT SC (16:25)
[2023-01-15] MEDS: Insulin Lispro 100 UNIT/ML INSULN.PEN 18 UNIT SC (18:01)
[2023-01-15] MEDS: Atorvastatin Calcium 40 MG Tablet GT (20:56)
[2023-01-15 22:10] LABS: Bedside Glucose 385 mg/dL (74-106)
[2023-01-16] VITALS (14 sets, daily range): BP systolic 104–140; BP diastolic 55–85; PULSE 85–101; RESP 16–20; TEMP 36.6–37.5; O2SAT 84–100
[2023-01-16 03:36] LABS: Absolute Lymphocyte Count 0.36 X10^3/uL (0.83-4.51); Absolute Neutrophil Count 8.2 X10^3/uL (2.0-7.7); Basophil# 0.01 X10^3/uL; Basophil% 0.1 % (0-1); Eosinophil# 0.02 X10^3/uL; Eosinophils% 0.2 % (0-5); Hematocrit 24.2 % (40-54); Hemoglobin 7.3 g/dL (13.0-16.5); Lymphocyte # 0.36 X10^3/ul (0.83-4.51); Lymphocyte % 3.9 % (19-41); Mean Corp Hgb Conc 30.2 g/dL (32-36); Mean Corpuscular Hgb 24.8 pg (27.0-32.0); Mean Corpuscular Volume 82.3 fL (80-94); Mean Platelet Vol. 10.2 fl (6.2-12.0); Monocyte# 0.69 X10^3/uL; Monocyte% 7.4 % (0-10); NRBC Flagged by Analyzer 0 % (0-5); Neutrophil # 8.17 X10^3/uL (2.7-7.7); Neutrophil % 87.9 % (47-70); POSITIVE DIFFERENTIAL YES; Platelet Count 127 K/mm3 (150-450); RBC Distribution Width CV 17.7 % (11.6-14.6); RBC Distribution Width SD 51.6 fl (35.1-43.9); Red Blood Count 2.94 M/mm3 (4.6-6.2); White Blood Count 9.3 K/mm3 (4.4-11.0)
[2023-01-16 03:49] LABS: Differential Indicated SCAN CRITERIA MET
[2023-01-16 03:53] LABS: Differential Comment SCANNED; Hypochromasia 1+
[2023-01-16 04:05] LABS: Bedside Glucose 80 mg/dL (74-106)
[2023-01-16 04:05] LABS: Bedside Glucose 79 mg/dL (74-106)
[2023-01-16 04:14] LABS: Anion Gap 6 (5-15); BUN 27 mg/dL (7-18); BUN/Creat Ratio 30.2 RATIO (10-20); Calcium,Total 8.6 mg/dL (8.5-10.1); Chloride 96 mmol/L (98-107); Creatinine, Serum 0.89 mg/dL (0.70-1.30); EST Glomerular Filtration Rate 89 mL/min (>60); Est Glom Filt Rate - Afr Amer 108 mL/min (>60); Estimated Creatinine Clearance 79.74 ml/min; Glucose 71 mg/dL (74-106); Potassium 3.6 mmol/L (3.5-5.1); Sodium Level 136 mmol/L (136-145)
[2023-01-16] MEDS: Piperacil/Tazobactam 3.375 GM in 0.9% Normal Saline (50mL MB+) 50 ML IV ×3 (05:16→21:28)
[2023-01-16] MEDS: Vancomycin Trough/Random Due 1 LAB MC (05:16)
--- NOTE | 2023-01-16 05:24 | PCM.RX.CS ---
Consult Antibiotic Management Pharmacy has been consulted to manage selected antiobiotic: Vancomycin Type of Intervention Type of Consult: Follow-up Labs Labs: Sodium 136 mmol/L (136-145) 01/16/23 03:15 Potassium 3.6 mmol/L (3.5-5.1) 01/16/23 03:15 Chloride 96 mmol/L (98-107) L 01/16/23 03:15 Carbon Dioxide 34.0 mmol/L (21.0-32.0) H 01/16/23 03:15 Anion Gap 6 (5-15) 01/16/23 03:15 BUN 27 mg/dL (7-18) H 01/16/23 03:15 Creatinine 0.89 mg/dL (0.70-1.30) 01/16/23 03:15 Est GFR (MDRD) Af Amer 108 mL/min (>60) 01/16/23 03:15 Est GFR (MDRD) Non-Af 89 mL/min (>60) 01/16/23 03:15 BUN/Creatinine Ratio 30.2 RATIO (10-20) H 01/16/23 03:15 Glucose 71 mg/dL (74-106) L 01/16/23 03:15 Vancomycin Trough 22.0 ug/mL (5.0-15.0) H 01/16/23 03:15 Microbiology Microbiology: Microbiology 01/14/23 18:00 Sputum, Expectorated/Coughed Gram Stain - Final 01/14/23 15:40 Mucosa - Nasopharyngeal Coronavirus COVID-19 PCR - Final 01/14/23 15:40 Mucosa - Nasopharyngeal Respiratory Panel (PCR) - Final 01/14/23 15:40 Urine, Random Legionella Antigen - Final 01/14/23 15:40 Urine, Random Streptococcus pneumoniae Antigen (M - Final 01/14/23 07:59 Nasal Secretion SARS-CoV-2 & FLU Antigen (Rapid) - Final Goal Trough Goal Trough: 15-20 mcg/mL Pharmacy Plan for Drug Dosing Pharmacy Plan for Drug Dosing: Pharmacy Service will continue to monitor and adjust dosing as required. Follow-Up Labs Follow-Up Labs: Trough: Vancomycin Date/Time Labs Ordered Labs to be done on [date and time ordered]: 01/16 @ 1100 RANDOM
[2023-01-16 06:01] LABS: Bedside Glucose 67 mg/dL (74-106)
[2023-01-16 06:53] LABS: Bedside Glucose 100 mg/dL (74-106)
--- NOTE | 2023-01-16 06:59 | NURSING ---
Pt. stated his glucose monitor says his BS was dropping; @ 2:53 AM, BS was 80- gave 4 oz. cranberry juice via gtube. @ 3:47 am, BS was 79. Pt. requested 4 more oz. of cranberry juice be admin.- admin. via gtube. @ 5:31 am, pt. stated his glucose monitor was alerting to dropping BS-BS 67. 8 oz. cranberry juice admin. via gtube; F/U BS @ 6:[address] Steinberg gave ok for hypoglycemia protocol to be put in place. Will address possible need for insulin to be adjusted with AM nurse.
[2023-01-16] MEDS: Ipratropium/Albuterol Sulfate 3 ML AMPUL.NEB INHALATION ×4 (07:09→19:47)
--- NOTE | 2023-01-16 08:00 | PCM.PN.INT ---
Assessment & Plan Assessment/Plan (1) Acute hypoxic respiratory failure: PLAN: Plan RECOMMENDATIONS: 1. Continue empiric broad-spectrum antimicrobials. 2. Continue to wean supplemental oxygen to maintain saturations at or above 90%. 3. Empiric BiPAP therapy with naps and nightly. 4. Ongoing bronchopulmonary hygiene. 5. Encourage incentive spirometer use and mobilize patient as tolerated. 6. I have no additional recommendations today. Please call with any additional questions. IMPRESSIONS: 1. Shortness of breath and hypoxemia Unclear etiology for the patient's acute decompensation on 01/15. Possibilities could include mucous plugging leading to respiratory distress versus panic attacks/anxiety. The patient responded quite well to BiPAP therapy. His oxygenation status is improving. Overall, the patient appears to be clinically improving on antimicrobial therapy, which I would recommend be continued without change, to address his underlying pneumonia. Continue to encourage aggressive bronchopulmonary hygiene, including incentive spirometer utilization. Continue to wean supplemental oxygen to maintain saturations at or above 90%. Perform walking oximetry study prior to consideration for discharge home. 2. History of coronary artery disease/atrial fibrillation/diabetes mellitus/renal transplantation/esophageal cancer status postchemotherapy Complicates care, management, recovery and prognosis. Continue home medications as indicated. This note was generated with [employer] dictation software. It may contain incorrect words, spelling, and punctuation that were not noted in checking the note before signing. Subjective Subjective The patient was seen and examined at the bedside this morning. Events from the last 24 hours have been reviewed. The patient is currently afebrile, hemodynamically stable and maintaining appropriate oxygen saturations on 2 L/min via nasal cannula. No specific complaints were noted. Objective Data Objective Data The patient's most recent lab work, culture data and imaging studies have all been personally reviewed. Sputum culture is pending. Vital Signs: Vital Signs Temp Pulse Resp BP Pulse Ox O2 Del Method O2 Flow Rate 98.0 F 90 18 131/66 H 96 Nasal Cannula 2 01/16/23 04:00 01/16/23 04:00 01/16/23 04:00 01/16/23 04:00 01/16/23 04:00 01/16/23 04:45 01/16/23 04:45 FiO2 30 01/15/23 05:39 Oxygen Flow Rate (L/min) 2 Oxygen Delivery Method Nasal Cannula Weight: 195 lb 8.8 oz Body Mass Index (BMI) 28.0 Intake & Output: Intake and Output for Last 24 Hours 01/14/23 01/15/23 01/16/23 23:59 23:59 23:59 Intake Total 1762 / 1762 1876 / 2276 450 / 450 Output Total 1000 / 1000 500 / 500 Balance 762 / 762 1376 / 1776 450 / 450 Lab / Micro Data Attestation: I reviewed the patient's lab results. 01/16/23 03:15 01/16/23 03:15 Labs: Laboratory Results - last 24 hr 01/15/23 08:53: POC Glucose 390 H 01/15/23 11:14: POC Glucose 430 H 01/15/23 20:51: POC Glucose 385 H 01/16/23 02:53: POC Glucose 80 01/16/23 03:15: WBC 9.3, RBC 2.94 L, Hgb 7.3 L, Hct 24.2 L, MCV 82.3, MCH 24.8 L, MCHC 30.2 L, RDW Std Deviation 51.6 H, RDW Coeff of Ayaka 17.7 H, Plt Count 127 L, MPV 10.2, Immature Gran % (Auto) 0.500, Neut % (Auto) 87.9 H, Lymph % (Auto) 3.9 L, [place] % (Auto) 7.4, Eos % (Auto) 0.2, Baso % (Auto) 0.1, Absolute Neuts (auto) 8.2 H, Absolute Lymphs (auto) 0.36 L, Nucleated RBC % 0, Differential Comment SCANNED, Hypochromasia 1+, Sodium 136, Potassium 3.6, Chloride 96 L, Carbon Dioxide 34.0 H, Anion Gap 6, BUN 27 H, Creatinine 0.89, Estim Creat Clear Calc 79.74, Est GFR (MDRD) Af Amer 108, Est GFR (MDRD) Non-Af 89, BUN/Creatinine Ratio 30.2 H, Glucose 71 L, Calcium 8.6, Vancomycin Trough 22.0 H 01/16/23 03:47: POC Glucose 79 01/16/23 05:31: POC Glucose 67 L 01/16/23 06:35: POC Glucose 100 Micro: Microbiology 01/14/23 18:00 Sputum, Expectorated/Coughed Gram Stain - Final 01/14/23 15:40 Mucosa - Nasopharyngeal Coronavirus COVID-19 PCR - Final 01/14/23 15:40 Mucosa - Nasopharyngeal Respiratory Panel (PCR) - Final 01/14/23 15:40 Urine, Random Legionella Antigen - Final 01/14/23 15:40 Urine, Random Streptococcus pneumoniae Antigen (M - Final 01/14/23 07:59 Nasal Secretion SARS-CoV-2 & FLU Antigen (Rapid) - Final Physical Exam Const alert and no apparent distress Constitutional Narrative: Family is present at the bedside. General Appearance: cooperative HEENT normocephalic and head/scalp atraumatic Eyes PERRL, EOMs intact bilaterally and conjunctivae normal Neck supple General: trachea midline Chest inspection of chest normal Resp normal respiratory effort and no use of accessory muscles Effort and Inspection: able to speak in complete sentences Auscultation: Negative for rales, rhonchi or wheezes Cardio regular rate and regular rhythm GI normal to inspection, nondistended, normoactive bowel sounds Inspection: GI tube present Extremity no clubbing, cyanosis or edema Skin no rashes or lesions noted Neuro CN's II-XII intact bilaterally, moves all extremities and no focal motor deficits Psych cooperative and affect normal Charges/Coding Visit Charges Inpatient E&M: 92458 Subs Hosp L2
--- NOTE | 2023-01-16 08:05 | PCM.PN.HOSP ---
Reason for Visit Reason for Visit: Diagnoses Acute respiratory failure with hypoxia (01/14/23) Subjective Subjective Breathing better. No events overnight. Objective Data Objective Data Vital Signs: Vital Signs Temp Pulse Resp BP Pulse Ox O2 Del Method O2 Flow Rate 36.7 C 90 18 131/66 H 88 Nasal Cannula 3 01/16/23 04:00 01/16/23 04:00 01/16/23 04:00 01/16/23 04:00 01/16/23 08:02 01/16/23 08:02 01/16/23 08:02 FiO2 30 01/15/23 05:39 Oxygen Flow Rate (L/min) 3 Oxygen Delivery Method Nasal Cannula Weight: 88.7 kg Body Mass Index (BMI) 28.0 Intake & Output: Intake and Output for Last 24 Hours 01/14/23 01/15/23 01/16/23 23:59 23:59 23:59 Intake Total 1762 / 1762 1876 / 2276 450 / 450 Output Total 1000 / 1000 500 / 500 Balance 762 / 762 1376 / 1776 450 / 450 Lab / Micro Data 01/16/23 03:15 01/16/23 03:15 Labs: Laboratory Results - last 24 hr 01/15/23 08:53: POC Glucose 390 H 01/15/23 11:14: POC Glucose 430 H 01/15/23 20:51: POC Glucose 385 H 01/16/23 02:53: POC Glucose 80 01/16/23 03:15: WBC 9.3, RBC 2.94 L, Hgb 7.3 L, Hct 24.2 L, MCV 82.3, MCH 24.8 L, MCHC 30.2 L, RDW Std Deviation 51.6 H, RDW Coeff of Ayaka 17.7 H, Plt Count 127 L, MPV 10.2, Immature Gran % (Auto) 0.500, Neut % (Auto) 87.9 H, Lymph % (Auto) 3.9 L, Mason % (Auto) 7.4, Eos % (Auto) 0.2, Baso % (Auto) 0.1, Absolute Neuts (auto) 8.2 H, Absolute Lymphs (auto) 0.36 L, Nucleated RBC % 0, Differential Comment SCANNED, Hypochromasia 1+, Sodium 136, Potassium 3.6, Chloride 96 L, Carbon Dioxide 34.0 H, Anion Gap 6, BUN 27 H, Creatinine 0.89, Estim Creat Clear Calc 79.74, Est GFR (MDRD) Af Amer 108, Est GFR (MDRD) Non-Af 89, BUN/Creatinine Ratio 30.2 H, Glucose 71 L, Calcium 8.6, Vancomycin Trough 22.0 H 01/16/23 03:47: POC Glucose 79 01/16/23 05:31: POC Glucose 67 L 01/16/23 06:35: POC Glucose 100 Micro: Microbiology 01/14/23 18:00 Sputum, Expectorated/Coughed Gram Stain - Final 01/14/23 15:40 Mucosa - Nasopharyngeal Coronavirus COVID-19 PCR - Final 01/14/23 15:40 Mucosa - Nasopharyngeal Respiratory Panel (PCR) - Final 01/14/23 15:40 Urine, Random Legionella Antigen - Final 01/14/23 15:40 Urine, Random Streptococcus pneumoniae Antigen (M - Final 01/14/23 07:59 Nasal Secretion SARS-CoV-2 & FLU Antigen (Rapid) - Final Physical Exam Const alert and no apparent distress HEENT head/scalp atraumatic and moist oral mucous membranes Resp Resp Narrative: Bilateral crackles. Cardio regular rate, regular rhythm, S1 normal heart sound and S2 normal heart sound GI normal to inspection, nondistended, normoactive bowel sounds and soft to palpation Neuro Sensorium / Orientation: awake and alert Assessment & Plan Assessment/Plan (1) Acute hypoxic respiratory failure: PLAN: Unclear etiology at this time. COVID-19 and influenza rapid test were negative. Given his diffuse pattern, concerning for this being viral so we will check a respiratory viral panel. Could also be atypical pneumonia so patient will continue be on antibiotics. Patient did receive ceftriaxone and azithromycin in the emergency room. Given the patient's seeming immunocompromise status, would broaden his antibiotics to vancomycin and PIP Tazo. Cannot rule out this being CHF given his pattern so we will do a furosemide challenge as well. After patient's event where his pulse ox dropped down to 50%, patient did cough up copious amounts of sputum. I suspect he may have mucous plugging. Pulmonary toilet. As patient cannot swallow given esophageal cancer, suction will be at bedside. Because of concern for pneumonia, will check urinary antigens for septic coccus and Legionella, sputum culture. Additionally check a respiratory viral panel and check COVID PCR. ABG after vent showed pH 7.43, PCO2 42.9 and PO2 of 69. Given the acute onset and the fact that he coughed up copious amounts of sputum, I suspect that this was due to a mucous plug. Strep and legionella antigens negative. PLAN: Plan Chronic conditions Status post renal transplant: Continue with prednisone, tacrolimus. While the patient is on vancomycin, will hold off on the Bactrim. DM type 1: Patient uses insulin pump at home. With his issues with hypoglycemia and the fact that we do not have a policy here for an insulin pump, the risk of using insulin pump here unchecked poses serious, severe consequences including profound hypoglycemia. Patient will be on a sliding scale insulin and will add some low-dose glargine for now. Increase glargine dosing. Add prandial insulin. Plan to resume his insulin pump upon discharge. Esophageal cancer: Status post PEG tube. Patient NPO. Patient to get medications as well as tube feeds through his PEG tube. Tube feeds will be continued with Jevity. Atrial fibrillation: Anticoagulant with apixaban. Continue with metoprolol. VTE prophylaxis not indicated as patient is already anticoagulated. CODE STATUS: Addressed with the patient and his . Patient be full code. Charges/Coding Visit Charges Inpatient E&M: 75055 Subs Hosp L2
[2023-01-16] MEDS: Jevity 1.5. 1,000 ML Bottle 237 ML GT ×5 (09:11→21:30)
[2023-01-16 09:13] LABS: Bedside Glucose > 500 mg/dL (74-106)
[2023-01-16 09:13] LABS: Bedside Glucose 480 mg/dL (74-106)
[2023-01-16 09:13] LABS: Bedside Glucose 499 mg/dL (74-106)
[2023-01-16 09:13] LABS: Bedside Glucose > 500 mg/dL (74-106)
[2023-01-16] MEDS: Insulin Glargine-YFGN 100 UNIT/ML Pen 20 UNIT SC ×2 (09:21→21:30)
[2023-01-16] MEDS: Insulin Lispro 100 UNIT/ML INSULN.PEN 8 UNIT SC ×5 (09:22→21:31)
[2023-01-16 09:24] LABS: Bedside Glucose 133 mg/dL (74-106)
[2023-01-16] MEDS: predniSONE 5 MG Tablet GT (09:48)
[2023-01-16] MEDS: APIXABAN 5 MG TABLET GT ×2 (09:48→21:30)
[2023-01-16] MEDS: Amiodarone 200 MG Tablet GT (09:48)
[2023-01-16] MEDS: Metoprolol Tartrate 100 MG Tablet GT ×2 (09:49→21:30)
[2023-01-16] MEDS: Lansoprazole 15 MG Capsule.DR GT (09:49)
[2023-01-16] MEDS: Tacrolimus Anhydrous 1 MG Capsule PO ×2 (09:50→21:30)
[2023-01-16] MEDS: NYSTATIN 500,000 UNIT/5 ML UDC 500000 UNIT PO ×4 (09:50→21:30)
[2023-01-16] MEDS: Azithromycin 500 MG in Dextrose 5%-Water (250mL Bag) 250 ML 250 MG IV (10:57)
[2023-01-16 11:47] LABS: Bedside Glucose 190 mg/dL (74-106)
[2023-01-16] MEDS: Insulin Lispro 100 UNIT/ML INSULN.PEN SC ×3 (12:04→21:31)
[2023-01-16 12:15] LABS: Vancomycin, Random Level 17.2 ug/mL (0.0-15.0)
--- NOTE | 2023-01-16 12:42 | PCM.RX.CS ---
Consult Antibiotic Management Pharmacy has been consulted to manage selected antiobiotic: Vancomycin Type of Intervention Type of Consult: Follow-up Suspected Infection Suspected Infection: Pneumonia Prior Doses of Antibiotics Prior Doses of Antibiotics Received/Current Regimen: Vancomycin 1000 mg IV given 01/15 @ 0436, and 01/15 @ 1700 Labs Labs: Sodium 136 mmol/L (136-145) 01/16/23 03:15 Potassium 3.6 mmol/L (3.5-5.1) 01/16/23 03:15 Chloride 96 mmol/L (98-107) L 01/16/23 03:15 Carbon Dioxide 34.0 mmol/L (21.0-32.0) H 01/16/23 03:15 Anion Gap 6 (5-15) 01/16/23 03:15 BUN 27 mg/dL (7-18) H 01/16/23 03:15 Creatinine 0.89 mg/dL (0.70-1.30) 01/16/23 03:15 Est GFR (MDRD) Af Amer 108 mL/min (>60) 01/16/23 03:15 Est GFR (MDRD) Non-Af 89 mL/min (>60) 01/16/23 03:15 BUN/Creatinine Ratio 30.2 RATIO (10-20) H 01/16/23 03:15 Glucose 71 mg/dL (74-106) L 01/16/23 03:15 Vancomycin Trough 22.0 ug/mL (5.0-15.0) H 01/16/23 03:15 Random Vancomycin 17.2 ug/mL (0.0-15.0) H 01/16/23 11:00 Microbiology Microbiology: Microbiology 01/14/23 09:15 Blood Culture (Wb) - Port Blood Culture - Preliminary No growth in 48 hours. 01/14/23 08:07 Blood Culture (Wb) - Line Draw Blood Culture - Preliminary No growth in 48 hours. 01/14/23 18:00 Sputum, Expectorated/Coughed Gram Stain - Final 01/14/23 15:40 Mucosa - Nasopharyngeal Coronavirus COVID-19 PCR - Final 01/14/23 15:40 Mucosa - Nasopharyngeal Respiratory Panel (PCR) - Final 01/14/23 15:40 Urine, Random Legionella Antigen - Final 01/14/23 15:40 Urine, Random Streptococcus pneumoniae Antigen (M - Final 01/14/23 07:59 Nasal Secretion SARS-CoV-2 & FLU Antigen (Rapid) - Final Dosing Weight Weight used for dosin.7 kg Estimated Creatinine Clearance Estimated Creatinine Clearance: ~80 Goal Trough Goal Trough: 15-20 mcg/mL Pharmacy Plan for Drug Dosing Pharmacy Plan for Drug Dosing: Repeat random level came back at 17.2, will decrease dose to 750 mg IV Q12H. Pharmacy Service will continue to monitor and adjust dosing as required. Follow-Up Labs Follow-Up Labs: Trough: Vancomycin Date/Time Labs Ordered Labs to be done on [date and time ordered]: 01/18/23 @ 1236
[2023-01-16] MEDS: Vancomycin HCl 750 MG in 0.9% Normal Saline (250mL Bag) 250 ML 250 MG IV (13:41)
[2023-01-16 15:52] LABS: Bedside Glucose 184 mg/dL (74-106)
[2023-01-16 18:16] LABS: Bedside Glucose 268 mg/dL (74-106)
[2023-01-16] MEDS: Atorvastatin Calcium 40 MG Tablet GT (21:30)
[2023-01-17] VITALS (14 sets, daily range): BP systolic 115–156; BP diastolic 65–88; PULSE 79–99; RESP 16–20; TEMP 36.7–37.2; O2SAT 93–100
--- NOTE | 2023-01-17 01:44 | CPS ---
Refused PAP therapy for the night.
[2023-01-17] MEDS: Vancomycin HCl 750 MG in 0.9% Normal Saline (250mL Bag) 250 ML 250 MG IV (02:00)
[2023-01-17 02:21] LABS: Bedside Glucose 313 mg/dL (74-106)
[2023-01-17] MEDS: Piperacil/Tazobactam 3.375 GM in 0.9% Normal Saline (50mL MB+) 50 ML IV ×3 (04:39→22:14)
[2023-01-17 05:00] LABS: Bedside Glucose 122 mg/dL (74-106)
[2023-01-17] MEDS: Ipratropium/Albuterol Sulfate 3 ML AMPUL.NEB INHALATION ×4 (07:38→18:33)
[2023-01-17] MEDS: predniSONE 5 MG Tablet GT (08:31)
[2023-01-17] MEDS: Jevity 1.5. 1,000 ML Bottle 237 ML GT ×2 (08:32→11:52)
[2023-01-17] MEDS: Insulin Lispro 100 UNIT/ML INSULN.PEN 8 UNIT SC ×2 (08:32→11:52)
[2023-01-17] MEDS: Amiodarone 200 MG Tablet GT (08:32)
[2023-01-17] MEDS: APIXABAN 5 MG TABLET GT (08:33)
[2023-01-17] MEDS: Insulin Glargine-YFGN 100 UNIT/ML Pen 20 UNIT SC (08:33)
[2023-01-17] MEDS: Metoprolol Tartrate 100 MG Tablet GT (08:34)
[2023-01-17] MEDS: NYSTATIN 500,000 UNIT/5 ML UDC 500000 UNIT PO ×4 (08:34→21:59)
[2023-01-17] MEDS: Lansoprazole 15 MG Capsule.DR GT (08:34)
[2023-01-17] MEDS: Tacrolimus Anhydrous 1 MG Capsule PO ×2 (08:35→21:59)
[2023-01-17 08:53] LABS: Bedside Glucose 122 mg/dL (74-106)
--- NOTE | 2023-01-17 09:20 | PN.HOSP_ITS ---
Reason for Visit Reason for Visit: Diagnoses Acute respiratory failure with hypoxia (01/14/23) Subjective Subjective Feels well. Did have increased oxygen requirements but has since been weaned down relatively easily. Objective Data Objective Data Vital Signs: Vital Signs Temp Pulse Resp BP Pulse Ox O2 Del Method O2 Flow Rate 36.9 C 98 20 H 143/73 H 98 Nasal Cannula 8 01/17/23 08:54 01/17/23 08:54 01/17/23 08:54 01/17/23 08:54 01/17/23 08:54 01/17/23 08:54 01/17/23 08:54 FiO2 30 01/15/23 05:39 Oxygen Flow Rate (L/min) 8 Oxygen Delivery Method Nasal Cannula Weight: 88.7 kg Body Mass Index (BMI) 28.0 Intake & Output: Intake and Output for Last 24 Hours 01/15/23 01/16/23 01/17/23 23:59 23:59 23:59 Intake Total 1876 / 2276 2010 365 / 365 Output Total 500 / 500 350 / 600 250 / 250 Balance 1376 / 1776 1661 / 1411 115 / 115 Lab / Micro Data 01/16/23 03:15 01/16/23 03:15 Labs: Laboratory Results - last 24 hr 01/16/23 09:06: POC Glucose 133 H 01/16/23 11:00: Random Vancomycin 17.2 H 01/16/23 11:29: POC Glucose 190 H 01/16/23 15:10: POC Glucose 184 H 01/16/23 17:38: POC Glucose 268 H 01/16/23 21:26: POC Glucose 313 H 01/17/23 04:38: POC Glucose 122 H 01/17/23 08:28: POC Glucose 122 H Micro: Microbiology 01/14/23 09:15 Blood Culture (Wb) - Port Blood Culture - Preliminary No growth in 48 hours. 01/14/23 08:07 Blood Culture (Wb) - Line Draw Blood Culture - Preliminary No growth in 48 hours. 01/14/23 18:00 Sputum, Expectorated/Coughed Gram Stain - Final 01/14/23 15:40 Mucosa - Nasopharyngeal Coronavirus COVID-19 PCR - Final 01/14/23 15:40 Mucosa - Nasopharyngeal Respiratory Panel (PCR) - Final 01/14/23 15:40 Urine, Random Legionella Antigen - Final 01/14/23 15:40 Urine, Random Streptococcus pneumoniae Antigen (M - Final 01/14/23 07:59 Nasal Secretion SARS-CoV-2 & FLU Antigen (Rapid) - Final Physical Exam Const alert and no apparent distress Cardio regular rate and regular rhythm Extremity General Extremity: edema bilateral lower extremity Neuro Sensorium / Orientation: awake and alert Assessment & Plan Assessment/Plan (1) Acute hypoxic respiratory failure: PLAN: Unclear etiology at this time. COVID-19 and influenza rapid test were negative. Given his diffuse pattern, concerning for this being viral so we will check a respiratory viral panel. Could also be atypical pneumonia so patient will continue be on antibiotics. Patient did receive ceftriaxone and azithromycin in the emergency room. Given the patient's seeming immunocompromise status, would broaden his antibiotics to vancomycin and PIP Tazo. Cannot rule out this being CHF given his pattern so we will do a furosemide challenge as well. After patient's event where his pulse ox dropped down to 50%, patient did cough up copious amounts of sputum. I suspect he may have mucous plugging. Pulmonary toilet. As patient cannot swallow given esophageal cancer, suction wi ll be at bedside. Because of concern for pneumonia, will check urinary antigens for septic coccus and Legionella, sputum culture. Additionally check a respiratory viral panel and check COVID PCR. ABG after vent showed pH 7.43, PCO2 42.9 and PO2 of 69. Given the acute onset and the fact that he coughed up copious amounts of sputum, I suspect that this was due to a mucous plug. Strep and legionella antigens negative. We will add (2) Elevated troponin: PLAN: Likely due to demand from respiratory failure Echo on 11/27 showed an EF 70% with mild concentric LVH, LAE moderately enlarge. PLAN: Plan Chronic conditions * Status post renal transplant: Continue with prednisone, tacrolimus. While the patient is on vancomycin, will hold off on the Bactrim. * DM type 1: Patient uses insulin pump at home. With his issues with hypoglycemia and the fact that we do not have a policy here for an insulin pump, the risk of using insulin pump here unchecked poses serious, severe consequences including profound hypoglycemia. Patient will be on a sliding scale insulin and will add some low-dose glargine for now. Increase glargine dosing. Add prandial insulin. Plan to resume his insulin pump upon discharge. * Esophageal cancer: Status post PEG tube. Patient NPO. Patient to get medications as well as tube feeds through his PEG tube. Tube feeds will be continued with Jevity. * Atrial fibrillation: Anticoagulant with apixaban. Continue with metoprolol. VTE prophylaxis not indicated as patient is already anticoagulated. CODE STATUS: Addressed with the patient and his . Patient be full code. Charges/Coding Visit Charges Inpatient E&M: 20126 Subs Hosp L2
[2023-01-17] MEDS: Azithromycin 500 MG in Dextrose 5%-Water (250mL Bag) 250 ML 250 MG IV (09:39)
[2023-01-17] MEDS: Insulin Lispro 100 UNIT/ML INSULN.PEN SC (11:52)
[2023-01-17] MEDS: Vancomycin HCl 750 MG in 0.9% Normal Saline (250mL Bag) 250 ML 200 MG IV (12:07)
[2023-01-17 12:23] LABS: Bedside Glucose 192 mg/dL (74-106)
[2023-01-17] MEDS: Furosemide 40 MG/4 ML Vial IV (15:28)
[2023-01-17 16:09] LABS: Bedside Glucose 135 mg/dL (74-106)
--- NOTE | 2023-01-17 16:26 | NURSING ---
This RN suspected PEG tube is dislodged. Tube not draining to gravity and anchoring balloon appears to be slightly out of skin. concern that it could be out of stomach and just in peritoneal cavity. requested physician to bedside to evaluate. This RN suspects it happened while patient was walking during therapy session as tube was functional @ 11:30 feed. Physician, Dr. Allen, called this RN to say he is unavailable to evaluate patient at this time and asked if there was a policy in place for nursing staff. This RN contacted nursing supervisor soakers to inform of situation. She stated nursing staff is not alowed to reinsert and to tape it securely so that it does not come all the way out until it can be evaluated by a physician. This RN taped it securely and notified Dr. Allen. Physician called this RN again with questions regarding how it became dislodged, when it was placed and by whom; this information was not noted in the H&P upon admission. This RN informed Dr. Allen of what nursing supervisor soakers suggested and that the tube was taped to prevent it coming all the way out. Dr. Allen stated It's already out. Notified him that the patient's stated tube has come out before and was recently replaced by [facility] about 4 months ago. This RN answered all questions to the best of her ability and physician stated I'm not getting anywhere with you. and hung up the phone. [ End ]
[2023-01-17 17:39] LABS: Bedside Glucose 159 mg/dL (74-106)
[2023-01-17] MEDS: Metoprolol Tartrate 5 MG/5 ML Vial IV (18:19)
[2023-01-17] MEDS: 0.9 % NaCl (Sterile) Posiflush 10 mL IV (22:13)
--- NOTE | 2023-01-17 22:17 | CT_ITS ---
We are attempting to reach an attending provider to discuss findings. An addendum with communication details will be sent when the communication is complete. STUDY: CT ABDOMEN AND PELVIS WITH CONTRAST REASON FOR EXAM: Male, 72 years old. Peg tube dislodgement RADIATION DOSAGE (If Supplied By Facility): CTDIvol = ( 15.67 ) mGy, DLP = ( 1045.87 ) mGycm TECHNIQUE: Transaxial images were obtained from the dome of the diaphragm to the symphysis pubis without oral contrast. IV 75mL Isovue-370 was administered. Sagittal and coronal images were reconstructed. Individualized dose optimization techniques were used for this CT. COMPARISON: 01/08/2023 FINDINGS: Moderate bilateral pleural effusions with bibasilar atelectasis. The visualized portions of the heart are within normal limits. Normal liver. Normal gallbladder and extrahepatic biliary system. Normal spleen. Normal pancreas. 3 cm soft tissue mass of the right adrenal gland. End-stage kidneys. Bilateral renal cysts. Right pelvic renal transplant without hydronephrosis. Percutaneous gastrostomy tube with the tip within the musculature of the anterior abdominal wall and not within the lumen of the stomach. Small diverticulum in the second portion the duodenum. There are multiple colonic diverticula consistent with diverticulosis. The appendix is visualized and appears normal. There is diffuse atherosclerotic calcification of the abdominal aorta, without a demonstrated aneurysm. Normal inferior vena cava. Normal retroperitoneum. Normal urinary bladder. Normal abdominal wall. There are diffuse degenerative changes of the visualized lumbar spine. CT/Abdomen/Pelvis W IV Cont ONLY IMPRESSION: Interval dislodgment of percutaneous gastrostomy tube with the tip within the musculature of the anterior abdominal wall. Electronically Signed: Ray Hong MD at 23:53 EST ,
--- NOTE | 2023-01-17 22:19 | PCM.PN.BLA ---
Progress Note Reportedly the patient's PEG tube placed surgically is not working. GI evaluated patient and recommended transfer to [facility] where peg tube was surgically placed. Patient was evaluated at bedside with , Sonia present. Per tube was originally placed at [facility] and thereafter replaced at [facility]. Per same peg tube has been replaced at [facility] multiple times; and also replaced at [facility] [place]. can not understand why patient would have to go to [place] for replacement but she will accede to the request of going to [place] if that is their only option. Physical exams. Patient is alert and oriented x 4 Heart sounds S1, S2 present. Lungs are diminished. 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 Assessment and plan Possible dislodgement of Peg tube Discussed with General Surgeon , Dr. Dickey as patient and family wants tube to be placed locally citing prior possibility. Per General surgery recommendation CT of abdomen and Pelvis with IV contrast ordered. Of note patient is a kidney transplant patient. However GFR is appropriate.
[2023-01-17 22:46] LABS: Bedside Glucose 129 mg/dL (74-106)
[2023-01-18] VITALS (13 sets, daily range): BP systolic 103–163; BP diastolic 51–83; PULSE 72–100; RESP 16–24; TEMP 36.2–37.2; O2SAT 93–98
[2023-01-18] MEDS: 0.9 % NaCl (Sterile) Posiflush 10 mL IV ×3 (00:33→18:57)
[2023-01-18] MEDS: Metoprolol Tartrate 5 MG/5 ML Vial IV ×2 (00:33→06:00)
[2023-01-18] MEDS: Vancomycin HCl 750 MG in 0.9% Normal Saline (250mL Bag) 250 ML 200 MG IV (01:31)
[2023-01-18 02:36] LABS: Bedside Glucose 139 mg/dL (74-106)
[2023-01-18] MEDS: Piperacil/Tazobactam 3.375 GM in 0.9% Normal Saline (50mL MB+) 50 ML IV ×3 (06:00→22:07)
[2023-01-18 06:58] LABS: Bedside Glucose 208 mg/dL (74-106)
--- NOTE | 2023-01-18 07:35 | RAD_ITS ---
INDICATION: peg tube dislodgement -- GG requested EXAMINATION/TECHNIQUE: X-RAY - XR Abdomen 1 View COMPARISON: CT of the abdomen dated January 17, 2023 FINDINGS: BOWEL GAS PATTERN: There is a percutaneous gastrostomy tube in place. There is contrast within the proximal stomach. No extravasation is visualized. Non-obstructive. No bowel or stomach distention. FREE AIR: Not assessed on a single supine view. ORGANOMEGALY: Not seen. CALCIFICATIONS: No abnormal calcifications observed. LOWER CHEST: There are patchy opacities within the visualized lungs. BONES AND SOFT TISSUES: No acute pathology. RAD/Abdomen Single View IMPRESSION: Contrast within the proximal stomach with no evidence of extravasation. Nonspecific bowel gas pattern. Bilateral patchy opacities within the visualized lungs may reflect multifocal pneumonia with possible associated atelectasis. Electronically Signed: Imelda Camp MD at 9:28 EST ,
[2023-01-18] MEDS: Ipratropium/Albuterol Sulfate 3 ML AMPUL.NEB INHALATION ×3 (07:47→14:20)
--- NOTE | 2023-01-18 07:49 | RAD_ITS ---
INDICATION: peg tube placement #2 EXAMINATION/TECHNIQUE: X-RAY - XR Abdomen 1 View COMPARISON: January 18, 2023 at 7:17 AM FINDINGS: BOWEL GAS PATTERN: There is contrast within the stomach. No extravasation is visualized. There is a percutaneous gastrostomy tube in place. Non-obstructive. No bowel or stomach distention. FREE AIR: Not assessed on a single supine view. ORGANOMEGALY: Not seen. CALCIFICATIONS: No abnormal calcifications observed. LOWER CHEST: There are patchy opacities within the visualized right lower and left midlung. BONES AND SOFT TISSUES: No acute pathology. RAD/Abdomen Single View (Portable) IMPRESSION: Contrast within the stomach with no evidence of extravasation. Nonspecific bowel gas pattern. Ill-defined patchy opacities within the lungs may reflect pneumonia and/or atelectasis. Electronically Signed: Imelda Camp MD at 9:27 EST ,
--- NOTE | 2023-01-18 08:05 | EX.PCM.CON.S ---
Assessment & Plan Assessment/Plan (1) Dislodged gastrostomy tube: PLAN: This is a 72-year-old male with known esophageal cancer and is gastrostomy tube?dependent who experienced dislodgment of this feeding tube yesterday afternoon. This is, reportedly, not the first time this is occurred and nursing notes that patient moves around a lot in bed. Tube was first placed in April of this year and replaced with a gastrostomy tube by Dr. Jara roughly 2 months ago according to patient's . Given the duration of the tubes presents, I felt confident in trying to intubate the tract at bedside again and was able to not only achieved intragastric position but also serially dilate the tract so that he now has a [address]. Unfortunately this is not a true gastrostomy tube and is only a Sawant catheter but we did not have stock for such a small diameter tube in the hospital. Patient and his spouse confirm that they have had a Sawant catheter used previously and that this worked well. A contrast study was performed to confirm intragastric positioning and is read by radiology as unconcerning. Therefore, I have given him an order for immediate use. I have cautioned that tube may become leaky at the exit site given that there is no formal bumper. I have also suggested that patient could order a replacement tube through their [employer] and this could be replaced on an outpatient basis. HPI Consult Data Date of Consult: 01/18/23 HPI Narrative Reason for Consultation: Dislodged feeding tube HPI Narrative: MAHAD SULLIVAN, is a 72 M who is presently admitted to the hospitalist service for management of increased work of breathing and oxygen requirements reportedly had dislodgment of his feeding tube yesterday afternoon. Patient's who is at bedside provides much of the history. She ports that her was fed uneventfully at approximately noon and then was noted to have displacement of the tube. I was notified at approximately 10 PM last evening that patient was recommended transfer to another facility after discussing patient with gastroenterology. I requested a CT of the abdomen and pelvis be performed to assess for the position of the tube relative to the stomach as I was notified that the tube was still within the tract. Earlier this morning I was notified that the tube came completely out of the opening and presented at bedside. Patient's shares that Mr. Sullivan underwent gastrostomy tube placement at the [facility] shortly after his diagnosis of inoperable esophageal cancer in April of this year. She shares that he underwent port placement with Dr. Jara at [facility] and had the tube exchanged at that visit. She notes that there was no operation required for this tube placement. She also shares that there has been at least another occasion where the tube was dislodged and it was successfully replaced in the emergency department at [facility]. Mr. Sullivan is presently on Eliquis after his heart kicked up due to a chemotherapy?related reaction according to his . She shares that his last chemotherapy was over 2 weeks ago as he missed and administration last week. Other notable past surgical history includes kidney transplant. [facility] Medical History Ambulates with cane Amputation finger Amputation of toe Anemia of chronic disease Atrial fibrillation Chemotherapy adverse reaction Diabetes mellitus, type II Dialysis AV fistula malfunction Esophageal cancer Esophageal cancer Gastric reflux History of steroid therapy HLD (hyperlipidemia) Hyperglycemia due to diabetes mellitus Hypertension Hypertension Hyponatremia Insulin dependent diabetes mellitus NSTEMI (non-ST elevated myocardial infarction) Wears dentures Wears glasses Wears hearing aid Home Medications rosuvastatin 20 mg tablet (Crestor) 20 mg PO QHS cholesterol 11/29/12 [History Last Taken 05/17/15] prednisone 2.5 mg tablet 5 mg PO DAILY steriod 05/11/15 [History Last Taken 04/25/21 08:00] tacrolimus 1 mg capsule, immediate-release (Prograf) 1 mg PO BID anit rejection 05/11/15 [History Last Taken 05/18/15 09:00] insulin aspart U-100 100 unit/mL (3 mL) subcutaneous pen (Novolog FlexPen U-100 Insulin aspart) See Protocol subcut CONT DM 02/06/18 [History Last Taken 02/06/18] lactose-reduced food with fiber 0.06 gram-1.5 kcal/mL oral liquid (Jevity 1.5 Victorino) 237 ml feeding tube .COMPLEX NUTRITION 10/16/22 [History Last Taken Unknown] ondansetron 8 mg disintegrating tablet 8 mg PO Q8H PRN nausea and vomiting 30 days #30 tabs 10/17/22 [Rx Last Taken Unknown] nystatin 100,000 unit/mL oral suspension 5 ml PO 4X/DAY MOUTH 10/24/22 [History Last Taken Unknown] omeprazole 10 mg capsule,delayed release See Rx Instructions feeding tube DAILY reflux 10/24/22 [History Last Taken Unknown] sulfamethoxazole-trimethoprim 1 tab PO DAILY antibiotic 11/26/22 [History Last Taken Unknown] metoprolol tartrate 100 mg tablet 100 mg G-tube BID 30 days #60 tabs 11/28/22 [Rx Last Taken Unknown] amiodarone 200 mg tablet 200 mg PO DAILY #30 tabs 12/17/22 [Rx Last Taken Unknown] apixaban 5 mg tablet (Eliquis) 5 mg PO BID #60 tabs 12/17/22 [Rx Last Taken Unknown] bumetanide 1 mg tablet 1 mg PO DAILY DIURETIC 01/01/23 [History Last Taken Unknown] Allergy/AdvReac Type Severity Reaction Status Date / Time diphenhydramine AdvReac Mild jittery/ Verified 01/01/23 10:14 [From Benadryl] anxious Family History Mother Kidney disease Hypertension High cholesterol Diabetes Father Kidney disease Hypertension High cholesterol Diabetes Surgical History Amputation of foot Hx of kidney transplant Hx of surgical amputation of finger Renal transplant recipient Renal transplant recipient Social History household members: spouse, family and children Smoking Status: Former smoker how long ago did patient quit smoking: Quit~ 50 years prior smoked youth until quit 2 ppd. alcohol intake: former details: Drank heavily in youth, stopped ~ 50 years prior. substance use type: does not use what type of physical activity do you participate in: walking Physical Exam Const alert, oriented x3 and no apparent distress GI GI Narrative: Nondistended, soft, 14 Greek gastrostomy tube barely through the abdominal wall is held in place by tape. The retention balloon is desufflated. Patient has no tenderness with palpation x4 quadrants. Lab / Micro Data 01/16/23 03:15 01/16/23 03:15 Labs: Laboratory Results - last 24 hr 01/17/23 08:28: POC Glucose 122 H 01/17/23 11:50: POC Glucose 192 H 01/17/23 15:25: POC Glucose 135 H 01/17/23 17:20: POC Glucose 159 H 01/17/23 22:17: POC Glucose 129 H 01/18/23 02:17: POC Glucose 139 H 01/18/23 06:10: POC Glucose 208 H Micro: Microbiology 01/14/23 18:00 Sputum, Expectorated/Coughed Gram Stain - Final 01/14/23 18:00 Sputum, Expectorated/Coughed Respiratory Culture - Final Mixed normal respiratory edith. No Streptococcus pneumoniae, beta-hemolytic Streptococcus or Staphylococcus aureus isolated. Imagaing Radiology Impression Abdomen/Pelvis CT 01/17/23 22:17 IMPRESSION: Interval dislodgment of percutaneous gastrostomy tube with the tip within the musculature of the anterior abdominal wall. Electronically Signed: Ray Hong MD at 23:53 EST , ADDENDUM: 01/18/233 IMPRESSION: Interval dislodgment of percutaneous gastrostomy tube with the tip within the musculature of the anterior abdominal wall. N.B. : The above Results were Read Back by Ray Hong MD to Madyson Gates RN, and understanding confirmed on 01/18/2023 02:06:21 (ET). Electronically Signed: Ray Hong MD at 23:53 EST , Charges/Coding Visit Charges Inpatient E&M: 44637 Init Hosp L2
--- NOTE | 2023-01-18 10:09 | PCM.OP.PRO ---
Procedure Report Date of Procedure: 01/18/23 At bedside patient's gastrostomy tract was intubated with an 8 Micronesian Sawant without difficulty. Gastrografin contrast was injected through this tube and confirmed an intragastric position. I then used a series of Santiago dilators (15 Micronesian followed by 21 Micronesian) to try to dilate the tract to accommodate a larger tube. Unfortunately the tract would not except a 20 Micronesian gastrostomy tube after this process so I placed a 14 Micronesian Sawant. I also attempted to place the Sawant catheter with its balloon within the abdominal wall and use pneumatic pressure to dilate the tract by instilling air into the balloon. However, this too was unsuccessful to dilate the tract enough to accommodate the 20 Micronesian gastrostomy so the attempt was abandoned. I filled the Sawant catheter balloon with the recommended 10 mL of air and tied the tube in at the patient's abdominal wall using a 2-0 Prolene suture. A dressing sponge was fit about the tubing and the patient tolerated the procedure without difficulty. Postplacement x-ray with additional Gastrografin was performed and read as intragastric with no evidence of extravasation. Procedures Digestive 40xxx-49xxx: 365[address] [facility] gtube no [facility]
[2023-01-18] MEDS: Tacrolimus Anhydrous 1 MG Capsule PO ×2 (10:46→21:59)
[2023-01-18] MEDS: Furosemide 40 MG/4 ML Vial IV ×2 (10:46→18:57)
[2023-01-18] MEDS: Insulin Glargine-YFGN 100 UNIT/ML Pen 20 UNIT SC ×2 (10:59→21:54)
[2023-01-18] MEDS: Insulin Lispro 100 UNIT/ML INSULN.PEN SC ×3 (11:00→21:54)
[2023-01-18] MEDS: Enoxaparin 40 MG/0.4 ML Syringe SC (11:08)
[2023-01-18] MEDS: Azithromycin 500 MG in Dextrose 5%-Water (250mL Bag) 250 ML 250 MG IV (11:24)
[2023-01-18] MEDS: NYSTATIN 500,000 UNIT/5 ML UDC 500000 UNIT PO ×4 (11:33→22:00)
--- NOTE | 2023-01-18 12:05 | PN.HOSP_ITS ---
Reason for Visit Reason for Visit: Diagnoses Acute respiratory failure with hypoxia (01/14/23) Other specified abnormal findings of blood chemistry (01/14/23) Displacement of other gastrointestinal prosthetic devices, implants and grafts, initial encounter (01/14/23) Subjective Subjective Patient had an issue where the bulb of his feeding tube came out. Subsequent imaging showed that is pretty much out of his whole abdomen so subsequent remov ed. Dr. Dickey came in today and placed a Sawant tube in order to patient to get feedings and medications. Patient been breathing okay otherwise. Objective Data Objective Data Vital Signs: Vital Signs Temp Pulse Resp BP Pulse Ox O2 Del Method O2 Flow Rate 36.7 C 72 24 H 130/69 H 95 Nasal Cannula 6 01/18/23 10:22 01/18/23 11:05 01/18/23 11:05 01/18/23 10:22 01/18/23 10:22 01/18/23 10:28 01/18/23 10:28 FiO2 30 01/15/23 05:39 Oxygen Flow Rate (L/min) 6 Oxygen Delivery Method Nasal Cannula Weight: 88.7 kg Body Mass Index (BMI) 28.0 Intake & Output: Intake and Output for Last 24 Hours 01/16/23 01/17/23 01/18/23 23:59 23:59 23:59 Intake Total 2010 365 / 365 Output Total 350 / 600 250 / 250 Balance 1661 / 1411 1779 / 1779 365 / 365 Lab / Micro Data 01/16/23 03:15 01/16/23 03:15 Labs: Laboratory Results - last 24 hr 01/17/23 11:50: POC Glucose 192 H 01/17/23 15:25: POC Glucose 135 H 01/17/23 17:20: POC Glucose 159 H 01/17/23 22:17: POC Glucose 129 H 01/18/23 02:17: POC Glucose 139 H 01/18/23 06:10: POC Glucose 208 H Micro: Microbiology 01/14/23 18:00 Sputum, Expectorated/Coughed Gram Stain - Final 01/14/23 18:00 Sputum, Expectorated/Coughed Respiratory Culture - Final Mixed normal respiratory edith. No Streptococcus pneumoniae, beta-hemolytic Streptococcus or Staphylococcus aureus isolated. 01/14/23 09:15 Blood Culture (Wb) - Port Blood Culture - Preliminary No growth in 48 hours. 01/14/23 08:07 Blood Culture (Wb) - Line Draw Blood Culture - Preliminary No growth in 48 hours. 01/14/23 15:40 Mucosa - Nasopharyngeal Coronavirus COVID-19 PCR - Final 01/14/23 15:40 Mucosa - Nasopharyngeal Respiratory Panel (PCR) - Final 01/14/23 15:40 Urine, Random Legionella Antigen - Final 01/14/23 15:40 Urine, Random Streptococcus pneumoniae Antigen (M - Final 01/14/23 07:59 Nasal Secretion SARS-CoV-2 & FLU Antigen (Rapid) - Final Radiography Diagnostic Testing: Radiology Impression Abdomen/Pelvis CT 01/17/23 22:17 IMPRESSION: Interval dislodgment of percutaneous gastrostomy tube with the tip within the musculature of the anterior abdominal wall. Electronically Signed: Ray Hong MD at 23:53 EST , ADDENDUM: 01/18/23 0213 IMPRESSION: Interval dislodgment of percutaneous gastrostomy tube with the tip within the musculature of the anterior abdominal wall. N.B. : The above Results were Read Back by Ray Hong MD to Madyson Gates RN, and understanding confirmed on 01/18/2023 02:06:21 (ET). Electronically Signed: Ray Hong MD at 23:53 EST , KUB X-Ray 01/18/23 07:35 IMPRESSION: Contrast within the proximal stomach with no evidence of extravasation. Nonspecific bowel gas pattern. Bilateral patchy opacities within the visualized lungs may reflect multifocal pneumonia with possible associated atelectasis. Electronically Signed: Imelda Camp MD at 9:28 EST , KUB X-Ray 01/18/23 07:49 IMPRESSION: Contrast within the stomach with no evidence of extravasation. Nonspecific bowel gas pattern. Ill-defined patchy opacities within the lungs may reflect pneumonia and/or atelectasis. Electronically Signed: Imelda Camp MD at 9:27 EST , Physical Exam Const Constitutional Narrative: Sick. Afebrile. Resting comfortably. Resp Resp Narrative: Crackles bilaterally Cardio regular rate, regular rhythm, S1 normal heart sound and S2 normal heart sound GI normal to inspection, nondistended, normoactive bowel sounds GI Narrative: Sawant tube in the stoma without any surrounding erythema. Neuro Sensorium / Orientation: awake and alert Assessment & Plan Assessment/Plan (1) Acute hypoxic respiratory failure: PLAN: Unclear etiology at this time. COVID-19 and influenza rapid test were negative. Given his diffuse pattern, concerning for this being viral so we will check a respiratory viral panel. Could also be atypical pneumonia so patient will continue be on antibiotics. Patient did receive ceftriaxone and azithromycin in the emergency room. Given the patient's seeming immunocompromise status, would broaden his antibiotics to vancomycin and PIP Tazo. Cannot rule out this being CHF given his pattern so we will do a furosemide challenge as well. After patient's event where his pulse ox dropped down to 50%, patient did cough up copious amounts of sputum. I suspect he may have mucous plugging. Pulmonary toilet. As patient cannot swallow given esophageal cancer, suction will be at bedside. Because of concern for pneumonia, will check urinary antigens for septic coccus and Legionella, sputum culture. Additionally check a respiratory viral panel and check COVID PCR. ABG after vent showed pH 7.43, PCO2 42.9 and PO2 of 69. Given the acute onset and the fact that he coughed up copious amounts of sputum, I suspect that this was due to a mucous plug. Strep and legionella antigens negative. Concerning there is volume overload so patient will be continued on furosemide as his kidney function allows. (2) Elevated troponin: PLAN: Likely due to demand from respiratory failure Echo on 11/27 showed an EF 70% with mild concentric LVH, LAE moderately enlarge. (3) Dislodged gastrostomy tube: PLAN: Occurred on the . CAT scan showed the tube was essentially out of his bowels. Was replaced by Dr. Dickey today with a Sawant tube. He is okay with the to being used for medications as well as resumption of his tube feeds. No need to transfer according Dr. Dickey. Patient has had this happen before and has had Sawant tubes placed before. Patient has seen Dr. Tai in the past. Patient can follow-up with Dr. Law man to have the larger sized feeding tube replaced as outpatient. I did speak with Dr. Wylie but since Dr. Dickey is want to address I will discontinue the GI consult. PLAN: Plan Chronic conditions * Status post renal transplant: Continue with prednisone, tacrolimus. While the patient is on vancomycin, will hold off on the Bactrim. * DM type 1: Patient uses insulin pump at home. With his issues with hypoglycemia and the fact that we do not have a policy here for an insulin pump, the risk of using insulin pump here unchecked poses serious, severe consequences including profound hypoglycemia. Patient will be on a sliding scale insulin and will add some low-dose glargine for now. Increase glargine dosing. Add prandial insulin. Plan to resume his insulin pump upon discharge. * Esophageal cancer: Status post PEG tube. Patient NPO. Patient to get medications as well as tube feeds through his PEG tube. Tube feeds will be continued with Jevity. * Atrial fibrillation: Anticoagulant with apixaban. Continue with metoprolol. VTE prophylaxis not indicated as patient is already anticoagulated. CODE STATUS: Addressed with the patient and his . Patient be full code. Greater than 55 minutes of which greater than 50% of time was reviewing the data, discussing with specialists and discussing with the patient and his family at bedside about the respiratory failure, the treatment as well as with the tube feed, also the fact that his tube feed is a smaller tube and will have more resistance to use because of its smaller size. Charges/Coding Visit Charges Inpatient E&M: 98899 [facility] Hosp L3
[2023-01-18 12:25] LABS: Bedside Glucose 308 mg/dL (74-106)
[2023-01-18 12:52] LABS: Creatinine, Serum 1.07 mg/dL (0.70-1.30); EST Glomerular Filtration Rate 73 mL/min (>60); Est Glom Filt Rate - Afr Amer 88 mL/min (>60); Estimated Creatinine Clearance 66.33 ml/min
[2023-01-18 12:53] LABS: Vancomycin, Trough Level 18.1 ug/mL (5.0-15.0)
--- NOTE | 2023-01-18 13:03 | PCM.RX.CS ---
Consult Antibiotic Management Pharmacy has been consulted to manage selected antiobiotic: Vancomycin Type of Intervention Type of Consult: Follow-up Suspected Infection Suspected Infection: Pneumonia Prior Doses of Antibiotics Prior Doses of Antibiotics Received/Current Regimen: current dose is vanc 750mg IV q12h Labs Labs: Sodium 136 mmol/L (136-145) 01/16/23 03:15 Potassium 3.6 mmol/L (3.5-5.1) 01/16/23 03:15 Chloride 96 mmol/L (98-107) L 01/16/23 03:15 Carbon Dioxide 34.0 mmol/L (21.0-32.0) H 01/16/23 03:15 Anion Gap 6 (5-15) 01/16/23 03:15 BUN 27 mg/dL (7-18) H 01/16/23 03:15 Creatinine 1.07 mg/dL (0.70-1.30) 01/18/23 12:14 Est GFR (MDRD) Af Amer 88 mL/min (>60) 01/18/23 12:14 Est GFR (MDRD) Non-Af 73 mL/min (>60) 01/18/23 12:14 BUN/Creatinine Ratio 30.2 RATIO (10-20) H 01/16/23 03:15 Glucose 71 mg/dL (74-106) L 01/16/23 03:15 Vancomycin Trough 18.1 ug/mL (5.0-15.0) H 01/18/23 12:14 Random Vancomycin 17.2 ug/mL (0.0-15.0) H 01/16/23 11:00 Microbiology Microbiology: Microbiology 01/14/23 18:00 Sputum, Expectorated/Coughed Gram Stain - Final 01/14/23 18:00 Sputum, Expectorated/Coughed Respiratory Culture - Final Mixed normal respiratory edith. No Streptococcus pneumoniae, beta-hemolytic Streptococcus or Staphylococcus aureus isolated. 01/14/23 09:15 Blood Culture (Wb) - Port Blood Culture - Preliminary No growth in 48 hours. 01/14/23 08:07 Blood Culture (Wb) - Line Draw Blood Culture - Preliminary No growth in 48 hours. 01/14/23 15:40 Mucosa - Nasopharyngeal Coronavirus COVID-19 PCR - Final 01/14/23 15:40 Mucosa - Nasopharyngeal Respiratory Panel (PCR) - Final 01/14/23 15:40 Urine, Random Legionella Antigen - Final 01/14/23 15:40 Urine, Random Streptococcus pneumoniae Antigen (M - Final 01/14/23 07:59 Nasal Secretion SARS-CoV-2 & FLU Antigen (Rapid) - Final Dosing Weight Weight used for dosin.7 kg Estimated Creatinine Clearance Estimated Creatinine Clearance: 72 ml/min Goal Trough Goal Trough: 15-20 mcg/mL Pharmacy Plan for Drug Dosing Pharmacy Plan for Drug Dosing: The vanc trough drawn at 12:14 today (approx 10.75 hrs after the previous dose) was 18.1. This is within goal range so will keep same dosing. Repeat a trough in 2 days per protocol. Pharmacy Service will continue to monitor and adjust dosing as required. Follow-Up Labs Follow-Up Labs: Trough: Vancomycin Date/Time Labs Ordered Labs to be done on [date and time ordered]: 01/20/23 12:30
[2023-01-18] MEDS: Lansoprazole 15 MG Capsule.DR GT (13:24)
[2023-01-18] MEDS: Amiodarone 200 MG Tablet GT (13:24)
[2023-01-18] MEDS: Jevity 1.5. 1,000 ML Bottle 237 ML GT ×4 (13:24→22:02)
[2023-01-18] MEDS: Insulin Lispro 100 UNIT/ML INSULN.PEN 8 UNIT SC ×4 (14:06→21:57)
[2023-01-18] MEDS: Vancomycin HCl 750 MG in 0.9% Normal Saline (250mL Bag) 250 ML 250 MG IV (14:13)
[2023-01-18 14:37] LABS: Bedside Glucose 326 mg/dL (74-106)
[2023-01-18 18:08] LABS: Bedside Glucose 326 mg/dL (74-106)
[2023-01-18 19:38] LABS: Bedside Glucose 414 mg/dL (74-106)
[2023-01-18] MEDS: Metoprolol Tartrate 100 MG Tablet GT (22:00)
[2023-01-18] MEDS: Menthol/Lanolin/Calamine/Znox 113 GM Tube 1 APPLIC TOPICAL (22:07)
[2023-01-18 23:02] LABS: Bedside Glucose 436 mg/dL (74-106)
[2023-01-19] VITALS (15 sets, daily range): BP systolic 119–146; BP diastolic 45–83; PULSE 77–88; RESP 16–20; TEMP 36.2–36.6; O2SAT 87–97
--- NOTE | 2023-01-19 | IMM_PTH ---
PATIENT: MAHAD SULLIVAN LOC: [facility] U#:[id number] AGE/SX: 72/M ROOM: [facility] RE01/14/[address]: Dr. Sebastian Sorenson DO : 1950 BED: 1 DIS: 01/21/2023 SPEC #: [id number] RECD: 01/21/23 14:07 STATUS: LOS REQ #: [id number] KINSEY: 01/19/23 00:[address]: Sebastian Sorenson DEPT: IMMUNOHISTOCHEMISTRY RECD BY: Kelly Rosario ENTERED: 01/21/23 14:08 SP TYPE: IMMUNO OTHR DR: DO Dr. Mikayla Martines MD Dr. Michael Bortz, MD Tissues: THORACIC FLUID Procedures: Victorino Ret (add) CK20 (add) CK5-6 (add) CK7 (add) CK8 (add) BYRON (add) KI-67 (add) P53 (add) Vimentin (add) Pankeratin (initial) P40 (add) CDX2 (add) CD68 (ADD) PHYSICIAN & [place] [id number] SPECIMEN INFORMATION: Tissue Source: Thoracentesis fluid Clinical Info: Right pleural effusion, respiratory failure Specimen Number: [id number] CPT code: 54639, 70520 x12 METHODOLOGY: Deparaffinized sections of prefer/formalin-fixed tissue or PAP/DQ stained slides are incubated with monoclonal/polyclonal antibodies/oligonucleotide probes. Localization is made via biotin free immunoperoxidase method. Appropriate controls are performed and reacted as expected. Results on target cell population are indicated in the following table: RESULTS: ANTIBODY / CLONE RESULT AE1-3 (AE1/AE3/PCK26) positive CK7 (OV-TL12/30) positive CK8 (13bnwxP15) positive CK20 (KS20.8) negative CDX2 (DHS4984T) negative Vimentin (V9) positive CD68 (KP-1) positive CALRET (polyclonal) positive CK5-6 (D5 & 1684) positive P40 (BC28) negative BYRON (E29) negative P53 (DO-7) negative, null pattern Ki-67 (30-9) negative These tests were developed and their performance characteristics determined by [facility]. They may not have been cleared or approved by the U.S. Food and Drug Administration. The FDA has determined that such clearance or approval is not necessary. The above immunohistochemical/dualISH markers are ordered and reviewed by the Pathologist. INTERPRETATION: Thoracentesis fluid (cell block): No evidence of malignancy. AM:cony 01/23/2023
[2023-01-19] MEDS: Vancomycin HCl 750 MG in 0.9% Normal Saline (250mL Bag) 250 ML 250 MG IV ×2 (02:00→13:37)
[2023-01-19 03:50] LABS: Bedside Glucose 280 mg/dL (74-106)
[2023-01-19] MEDS: Menthol/Lanolin/Calamine/Znox 113 GM Tube 1 APPLIC TOPICAL ×2 (05:15→22:00)
[2023-01-19] MEDS: Piperacil/Tazobactam 3.375 GM in 0.9% Normal Saline (50mL MB+) 50 ML IV ×3 (05:15→21:28)
[2023-01-19] MEDS: Insulin Lispro 100 UNIT/ML INSULN.PEN SC (06:43)
[2023-01-19] MEDS: Insulin Lispro 100 UNIT/ML INSULN.PEN 8 UNIT SC (06:43)
[2023-01-19] MEDS: Jevity 1.5. 1,000 ML Bottle 237 ML GT ×5 (06:44→21:29)
[2023-01-19 06:46] LABS: Absolute Lymphocyte Count 0.23 X10^3/uL (0.83-4.51); Absolute Neutrophil Count 9.8 X10^3/uL (2.0-7.7); Basophil# 0.01 X10^3/uL; Basophil% 0.1 % (0-1); Hematocrit 25.3 % (40-54); Hemoglobin 7.8 g/dL (13.0-16.5); Lymphocyte # 0.23 X10^3/ul (0.83-4.51); Lymphocyte % 2.1 % (19-41); Mean Corp Hgb Conc 30.8 g/dL (32-36); Mean Corpuscular Volume 81.1 fL (80-94); Mean Platelet Vol. 10.3 fl (6.2-12.0); Monocyte# 0.72 X10^3/uL; Monocyte% 6.6 % (0-10); NRBC Flagged by Analyzer 0 % (0-5); Neutrophil # 9.84 X10^3/uL (2.7-7.7); Neutrophil % 90.3 % (47-70); POSITIVE DIFFERENTIAL YES; Platelet Count 178 K/mm3 (150-450); RBC Distribution Width CV 17.8 % (11.6-14.6); RBC Distribution Width SD 51.3 fl (35.1-43.9); Red Blood Count 3.12 M/mm3 (4.6-6.2); White Blood Count 10.9 K/mm3 (4.4-11.0)
--- NOTE | 2023-01-19 06:59 | NURSING ---
early tube feeding done at this time per patient and family agreement
[2023-01-19 07:00] LABS: Differential Indicated SCAN CRITERIA MET
[2023-01-19] MEDS: Ipratropium/Albuterol Sulfate 3 ML AMPUL.NEB INHALATION ×4 (07:02→22:05)
[2023-01-19 07:11] LABS: Anion Gap 5 (5-15); BUN 35 mg/dL (7-18); BUN/Creat Ratio 33.3 RATIO (10-20); Chloride 97 mmol/L (98-107); Creatinine, Serum 1.05 mg/dL (0.70-1.30); EST Glomerular Filtration Rate 74 mL/min (>60); Est Glom Filt Rate - Afr Amer 90 mL/min (>60); Estimated Creatinine Clearance 67.59 ml/min; Glucose 242 mg/dL (74-106); Potassium 3.7 mmol/L (3.5-5.1); Sodium Level 135 mmol/L (136-145)
[2023-01-19 07:19] LABS: Bedside Glucose 224 mg/dL (74-106)
[2023-01-19] MEDS: Amiodarone 200 MG Tablet GT (11:12)
[2023-01-19] MEDS: predniSONE 5 MG Tablet GT (11:12)
[2023-01-19] MEDS: Lansoprazole 15 MG Capsule.DR GT (11:13)
[2023-01-19] MEDS: Furosemide 40 MG/4 ML Vial IV ×3 (11:17→22:05)
[2023-01-19] MEDS: Metoprolol Tartrate 100 MG Tablet GT ×2 (11:17→21:29)
[2023-01-19] MEDS: Enoxaparin 40 MG/0.4 ML Syringe SC (11:21)
[2023-01-19] MEDS: NYSTATIN 500,000 UNIT/5 ML UDC 500000 UNIT PO ×4 (11:23→21:28)
[2023-01-19] MEDS: Tacrolimus Anhydrous 1 MG Capsule PO ×2 (11:25→21:29)
[2023-01-19] MEDS: Azithromycin 500 MG in Dextrose 5%-Water (250mL Bag) 250 ML 250 MG IV (11:29)
--- NOTE | 2023-01-19 11:35 | FLU_PTH ---
PATIENT: MAHAD SULLIVAN LOC: [facility] U#:[id number] AGE/SX: 72/M ROOM: [facility] RE01/14/[address]: Dr. Sebastian Sorenson DO : 1950 BED: 1 DIS: 01/21/2023 SPEC #: [id number] RECD: 01/20/23 13:37 STATUS: LOS RERamila #: [id number] KINSEY: 01/19/23 11:[address]: Sebastian Sorenson DEPT: CYTOLOGY RECD BY: Puja Gil ENTERED: 01/20/23 13:38 SP TYPE: Fluid OTHR DR: DO Dr. Mikayla Martines MD Dr. Michael Bortz, MD Tissues: Pleural fluid, NOS Procedures: Special Stain Group II Mucicarmine Stain (control) Surgery Specimen Level IV Cytospin Fluid HEADER OPERATION: Thoracentesis PRE-OP DIAGNOSIS: Right pleural effusion, respiratory failure TISSUE SUBMITTED: Thoracentesis fluid for cytology DIAGNOSIS CYTOLOGY Thoracentesis fluid for cytology (cytospin and cell block): Negative for malignant cells. See comment. AM:cony 01/21/2023 COMMENT Immunohistochemistry ([id number]) supports the above diagnosis. Mucin stain with matched control was used in the evaluation of this case. CYTOLOGY STUDY Slides are reviewed. CYTOLOGY GROSS Received is 90 ml of yellowish cloudy fluid labeled with the patient's name and and designated per the requisition as thoracentesis. Submitted for cytology preparation including cell block. / cony 01/20/2023 TC:5 CPT: 32118, 99585, 32471
--- NOTE | 2023-01-19 17:38 | CT_ITS ---
INDICATION: infiltrates, hypoxia EXAMINATION: CT CHEST WITHOUT CONTRAST - CT Chest W/O Contrast Injection TECHNIQUE: Helically acquired images were obtained of the chest. A radiation dose optimization technique was used for this scan. IV Contrast dosage and agent: None. COMPARISON: January 08, 2023 FINDINGS: LUNGS, PLEURA AND LARGE AIRWAYS: There are bilateral perihilar infiltrates or pulmonary edema. There are large bilateral pleural effusions slightly larger on the right with consolidation of the lower lobes. No pneumothorax. THYROID: No thyroid lesions. HEART AND PERICARDIUM: The heart is enlarged and there is multilevel vessel coronary artery calcification. No pericardial effusion. VESSELS: Mild atherosclerotic change of the aorta without evidence for aneurysm MEDIASTINUM AND LUCAS: No mediastinal or hilar adenopathy. There is distended fluid-filled proximal and mid esophagus with narrowed or collapsed lumen at the level of the tracheobronchial angle.. Cannot exclude obstructing lesion at this level No hiatal hernia. UPPER ABDOMEN: There is relatively hyperattenuated appearance to the liver possibly due to amiodarone deposition or glycogen storage disease BONES: Dorsal spine demonstrates degenerative change No suspicious lytic or blastic abnormality. There has been slight worsening of airspace disease and increasing size of the pleural effusions since previous study CT/Chest without Contrast IMPRESSION: ASHD without evidence for aortic aneurysm. Bilateral perihilar infiltrate or pulmonary edema with large pleural effusions and consolidation of the lower lobes. Incidental finding of fluid-filled proximal esophagus possibly due to obstructing lesion at the tracheobronchial angle. Clinical correlation is recommended in this regard Electronically Signed: Sam Flores MD at 19:31 EST ,
--- NOTE | 2023-01-19 20:09 | PN.HOSP_ITS ---
Reason for Visit Reason for Visit: Diagnoses Acute respiratory failure with hypoxia (01/14/23) Other specified abnormal findings of blood chemistry (01/14/23) Displacement of other gastrointestinal prosthetic devices, implants and grafts, initial encounter (01/14/23) Subjective Subjective Patient was seen and examined today, he is still requiring 2 L of oxygen at rest, I talked with his regarding his medical care today, I also talked with pulmonary medicine, I am not sure what the etiology of the patient's pulmonary infiltrates is, he remains on IV antibiotics and I have elected to place him back on Bactrim which she chronically takes at home but on a therapeutic dose. Pulmonary medicine has agreed to see him again tomorrow for evaluation, CT of his chest today was obtained and it showed bilateral perihilar infiltrates or pulmonary edema with large pleural effusions and consolidation of the lower lobes, patient has a fluid-filled proximal esophagus due to an obstructive lesion at the tracheobronchial angle. I talked with his oncologist earlier today before the CT was obtained, patient is not receiving any immunosuppressive treatment presently, he is on 5-FU and a platinin chemotherapeutic agent. Objective Data Objective Data Vital Signs: Vital Signs Temp Pulse Resp BP Pulse Ox O2 Del Method O2 Flow Rate 97.2 F L 81 18 121/45 H 97 Nasal Cannula 2 01/19/23 17:00 01/19/23 17:00 01/19/23 17:00 01/19/23 17:00 01/19/23 17:00 01/19/23 17:00 01/19/23 17:00 FiO2 30 01/15/23 05:39 Oxygen Flow Rate (L/min) 2 Oxygen Delivery Method Nasal Cannula Weight: 88.7 kg Body Mass Index (BMI) 28.0 Intake & Output: Intake and Output for Last 24 Hours 01/17/23 01/18/23 01/19/23 23:59 23:59 23:59 Intake Total 2028 1612 / 1612 2472 / 2472 Output Total 250 / 250 Balance 1778 / 177 1612 / 1612 2472 / 2472 Lab / Micro Data 01/19/23 06:02 01/19/23 06:02 Labs: Laboratory Results - last 24 hr 01/18/23 21:53: POC Glucose 436 H 01/19/23 03:29: POC Glucose 280 H 01/19/23 06:02: WBC 10.9, RBC 3.12 L, Hgb 7.8 L, Hct 25.3 L, MCV 81.1, MCH 25.0 L, MCHC 30.8 L, RDW Std Deviation 51.3 H, RDW Coeff of Ayaka 17.8 H, Plt Count 178, MPV 10.3, Immature Gran % (Auto) 0.900, Neut % (Auto) 90.3 H, Lymph % (Auto) 2.1 L, [place] % (Auto) 6.6, Eos % (Auto) 0.0, Baso % (Auto) 0.1, Absolute Neuts (auto) 9.8 H, Absolute Lymphs (auto) 0.23 L, Nucleated RBC % 0, Differential Comment COMMENT, Sodium 135 L, Potassium 3.7, Chloride 97 L, Carbon Dioxide 33.0 H, Anion Gap 5, BUN 35 H, Creatinine 1.05, Estim Creat Clear Calc 67.59, Est GFR (MDRD) Af Amer 90, Est GFR (MDRD) Non-Af 74, BUN/Creatinine Ratio 33.3 H, Glucose 242 H, Calcium 9.0 01/19/23 06:38: POC Glucose 224 H Micro: Microbiology 01/14/23 09:15 Blood Culture (Wb) - Port Blood Culture - Final No growth. 01/14/23 08:07 Blood Culture (Wb) - Line Draw Blood Culture - Final No growth in 5 days. 01/14/23 18:00 Sputum, Expectorated/Coughed Gram Stain - Final 01/14/23 18:00 Sputum, Expectorated/Coughed Respiratory Culture - Final Mixed normal respiratory edith. No Streptococcus pneumoniae, beta-hemolytic Streptococcus or Staphylococcus aureus isolated. 01/14/23 15:40 Mucosa - Nasopharyngeal Coronavirus COVID-19 PCR - Final 01/14/23 15:40 Mucosa - Nasopharyngeal Respiratory Panel (PCR) - Final 01/14/23 15:40 Urine, Random Legionella Antigen - Final 01/14/23 15:40 Urine, Random Streptococcus pneumoniae Antigen (M - Final 01/14/23 07:59 Nasal Secretion SARS-CoV-2 & FLU Antigen (Rapid) - Final Radiography Diagnostic Testing: Radiology Impression Chest CT 01/19/23 17:38 IMPRESSION: ASHD without evidence for aortic aneurysm. Bilateral perihilar infiltrate or pulmonary edema with large pleural effusions and consolidation of the lower lobes. Incidental finding of fluid-filled proximal esophagus possibly due to obstructing lesion at the tracheobronchial angle. Clinical correlation is recommended in this regard Electronically Signed: Sam Flores MD at 19:31 EST Reading Location ID and State: [address] [place] [address] Tel , Service support , Physical Exam Const alert, oriented x3, no apparent distress and average body habitus General Appearance: cooperative, well kempt and well developed Orientation / Consciousness: awake, oriented to person, oriented to place and oriented to time HEENT normocephalic, head/scalp atraumatic and moist oral mucous membranes Eyes PERRL, EOMs intact bilaterally and conjunctivae normal Neck supple, no JVD, thyroid normal and no carotid bruits General: trachea midline Resp normal respiratory effort, no retractions and no use of accessory muscles Resp Narrative: Diminished breath sounds are noted at the bases bilaterally Auscultation: Negative for rales, rhonchi or wheezes Cardio regular rate, regular rhythm, S1 normal heart sound, S2 normal heart sound, no murmurs, no rub and no gallops GI normal to inspection, nondistended, normoactive bowel sounds, soft to palpation, non-tender and non-distended GI Narrative: Sawant is in place through the abdominal wall acting as a PEG tube Extremity no clubbing, cyanosis or edema Skin no rashes or lesions noted General Skin Exam: no breakdown Neuro oriented x3, CN's II-XII intact bilaterally, moves all extremities, no focal motor deficits and no sensory deficits noted Sensorium / Orientation: awake, alert, oriented to person, oriented to place and oriented to time Speech: speech normal Psych affect normal Assessment & Plan Assessment/Plan (1) Acute hypoxic respiratory failure: PLAN: Plan 1. Acute hypoxic respiratory failure-etiology unclear at this time, patient's CT of his chest today showed bilateral pleural effusions plus consolidations at the bases, patient will remain on IV antibiotics at this time, I have elected to increase the patient's Lasix to 40 mg every 8 hours, patient will be seen again tomorrow by pulmonary medicine, he may need a thoracentesis #2 elevated troponin-secondary to demand ischemia, non-STEMI was ruled out #3 esophageal cancer-complicates care, medical course, recovery, and prognosis #4 type 1 diabetes-I gave the patient's family permission for him to use his own insulin pump #5 paroxysmal atrial fibrillation-patient's Eliquis will continue to be held at this time, he may need to undergo thoracentesis due to his pleural effusions, patient is on rate limiting medications #6 status post renal transplant-continue prednisone and tacrolimus, patient will remain on Bactrim at a therapeutic dose Total clinical time spent by myself addressing the patient's medical issues, reviewing all of his data, and collaborating with patient's care team: 52 susie mccain Charges/Coding Visit Charges Inpatient E&M: 43850 Subs Hosp L3
[2023-01-19 21:21] LABS: International Normalized Ratio 1.2; Prothrombin Time (Protime)PT. 15.4 SECONDS (11.7-14.9)
[2023-01-19 21:28] LABS: Partial Thromboplast Time 20.4 Seconds (24.1-36.2)
[2023-01-19] MEDS: SMZ/TPM Suspension 20 ML GT (21:28)
[2023-01-20] VITALS (10 sets, daily range): BP systolic 110–140; BP diastolic 52–78; PULSE 72–93; RESP 16–20; TEMP 36.6–37.1; O2SAT 92–97
[2023-01-20] MEDS: Vancomycin HCl 750 MG in 0.9% Normal Saline (250mL Bag) 250 ML 250 MG IV (02:20)
[2023-01-20] MEDS: Furosemide 40 MG/4 ML Vial IV ×3 (07:13→22:22)
[2023-01-20] MEDS: Piperacil/Tazobactam 3.375 GM in 0.9% Normal Saline (50mL MB+) 50 ML IV ×2 (07:14→15:06)
[2023-01-20] MEDS: Ipratropium/Albuterol Sulfate 3 ML AMPUL.NEB INHALATION ×3 (07:45→19:25)
[2023-01-20 08:53] LABS: Anion Gap 4 (5-15); BUN 32 mg/dL (7-18); BUN/Creat Ratio 29.6 RATIO (10-20); Calcium,Total 9.1 mg/dL (8.5-10.1); Chloride 95 mmol/L (98-107); Creatinine, Serum 1.08 mg/dL (0.70-1.30); EST Glomerular Filtration Rate 72 mL/min (>60); Est Glom Filt Rate - Afr Amer 87 mL/min (>60); Estimated Creatinine Clearance 65.72 ml/min; Glucose 129 mg/dL (74-106); Potassium 3.4 mmol/L (3.5-5.1); Sodium Level 136 mmol/L (136-145)
[2023-01-20] MEDS: NYSTATIN 500,000 UNIT/5 ML UDC 500000 UNIT PO ×4 (09:14→22:21)
--- NOTE | 2023-01-20 09:21 | PCM.PN.INT ---
Assessment & Plan Assessment/Plan (1) Acute hypoxic respiratory failure: PLAN: Plan RECOMMENDATIONS: 1. Continue empiric broad-spectrum antimicrobials for now. Reinitiate baseline Bactrim 2. Continue to wean supplemental oxygen to maintain saturations at or above 90%. 3. Empiric BiPAP therapy with naps and nightly. 4. Ongoing bronchopulmonary hygiene. 5. Encourage incentive spirometer use and mobilize patient as tolerated. 6. Walking oximetry prior to discharge IMPRESSIONS: 1. Bilateral pleural effusions with hypoxic respiratory insufficiency Patient was CT scan overnight showing bilateral pleural effusions, right greater than left. Patient does have some infiltrates bilaterally, but is unclear if this is related to compressive artifact versus fluid overload versus ongoing infection. We will arrange for a diagnostic and therapeutic thoracentesis. If patient's oxygen requirements improved, patient potentially could be discharged with outpatient follow-up. Patient will need repeat chest imaging in the future to ensure resolution. Cannot exclude the need for bronchoscopy to evaluate for atypical organisms such as Mycobacterium or fungus if he fails to improve. 2. History of coronary artery disease/atrial fibrillation/diabetes mellitus/renal transplantation/esophageal cancer status postchemotherapy Complicates care, management, recovery and prognosis. Continue home medications as indicated. This note was generated with [employer] dictation software. It may contain incorrect words, spelling, and punctuation that were not noted in checking the note before signing. Subjective Subjective Asked to see the patient again by the hospitalist. Patient has received diuretics since the weekend, but still requiring supplemental oxygen. Patient states he has not required supplemental oxygen previously and is somewhat concerned. Patient does have a cough that is intermittently productive, but he does not feel overly short of breath as long as I have my oxygen. Objective Data Objective Data Vital Signs: Vital Signs Temp Pulse Resp BP Pulse Ox O2 Del Method O2 Flow Rate 36.8 C 80 16 140/69 H 92 Nasal Cannula 2 01/20/23 02:30 01/20/23 07:45 01/20/23 07:45 01/20/23 02:30 01/20/23 07:45 01/20/23 07:45 01/20/23 07:45 FiO2 30 01/15/23 05:39 Oxygen Flow Rate (L/min) 2 Oxygen Delivery Method Nasal Cannula Weight: 88.7 kg Body Mass Index (BMI) 28.0 Intake & Output: Intake and Output for Last 24 Hours 01/18/23 01/19/23 01/20/23 23:59 23:59 23:59 Intake Total 1612 / 1612 2772 / 2772 565 / 565 Output Total 0 / 0 Balance 1612 / 1612 2772 / 2772 565 / 565 Lab / Micro Data Attestation: I reviewed the patient's lab results. 01/19/23 06:02 01/20/23 07:50 Labs: Laboratory Results - last 24 hr 01/19/23 06:02: Differential Comment COMMENT 01/19/23 20:46: PT 15.4 H, INR 1.2, APTT 20.4 L 01/20/23 07:50: Sodium 136, Potassium 3.4 L, Chloride 95 L, Carbon Dioxide 37.0 H, Anion Gap 4 L, BUN 32 H, Creatinine 1.08, Estim Creat Clear Calc 65.72, Est GFR (MDRD) Af Amer 87, Est GFR (MDRD) Non-Af 72, BUN/Creatinine Ratio 29.6 H, Glucose 129 H, Calcium 9.1 Micro: Microbiology 01/14/23 09:15 Blood Culture (Wb) - Port Blood Culture - Final No growth. 01/14/23 08:07 Blood Culture (Wb) - Line Draw Blood Culture - Final No growth in 5 days. 01/14/23 18:00 Sputum, Expectorated/Coughed Gram Stain - Final 01/14/23 18:00 Sputum, Expectorated/Coughed Respiratory Culture - Final Mixed normal respiratory edith. No Streptococcus pneumoniae, beta-hemolytic Streptococcus or Staphylococcus aureus isolated. 01/14/23 15:40 Mucosa - Nasopharyngeal Coronavirus COVID-19 PCR - Final 01/14/23 15:40 Mucosa - Nasopharyngeal Respiratory Panel (PCR) - Final 01/14/23 15:40 Urine, Random Legionella Antigen - Final 01/14/23 15:40 Urine, Random Streptococcus pneumoniae Antigen (M - Final 01/14/23 07:59 Nasal Secretion SARS-CoV-2 & FLU Antigen (Rapid) - Final Radiography Diagnostic Testing: Radiology Impression Chest CT 01/19/23 17:38 IMPRESSION: ASHD without evidence for aortic aneurysm. Bilateral perihilar infiltrate or pulmonary edema with large pleural effusions and consolidation of the lower lobes. Incidental finding of fluid-filled proximal esophagus possibly due to obstructing lesion at the tracheobronchial angle. Clinical correlation is recommended in this regard Electronically Signed: Sam Flores MD at 19:31 EST , Physical Exam Const alert and no apparent distress Constitutional Narrative: Family is present at the bedside. General Appearance: cooperative HEENT normocephalic and head/scalp atraumatic Eyes PERRL, EOMs intact bilaterally, conjunctivae normal and no scleral icterus Neck supple General: trachea midline Chest inspection of chest normal Resp normal respiratory effort and no use of accessory muscles Effort and Inspection: able to speak in complete sentences Auscultation: rales Percussion: dullness Mid: right and Lower: right Cardio regular rate and regular rhythm GI normal to inspection, nondistended, normoactive bowel sounds GI Narrative: Sawant catheter in place of GI tube Extremity General Extremity: edema bilateral (2+) lower extremity; Negative for clubbing Skin no rashes or lesions noted Neuro CN's II-XII intact bilaterally, moves all extremities and no focal motor deficits Psych cooperative and affect normal Charges/Coding Visit Charges Inpatient E&M: 97290 Subs Hosp L3
[2023-01-20] MEDS: Tacrolimus Anhydrous 1 MG Capsule PO ×2 (09:24→22:22)
[2023-01-20] MEDS: Potassium Chloride Oral Soln 20 MEQ/15 ML UDC 40 MEQ GT (09:24)
[2023-01-20] MEDS: Amiodarone 200 MG Tablet GT (09:24)
[2023-01-20] MEDS: Metoprolol Tartrate 100 MG Tablet GT ×2 (09:24→22:21)
[2023-01-20] MEDS: predniSONE 5 MG Tablet GT (09:24)
[2023-01-20] MEDS: Lansoprazole 15 MG Capsule.DR GT (09:25)
[2023-01-20] MEDS: SMZ/TPM Suspension 20 ML GT ×2 (09:25→22:39)
[2023-01-20] MEDS: Azithromycin 500 MG in Dextrose 5%-Water (250mL Bag) 250 ML 250 MG IV (09:34)
[2023-01-20 09:48] LABS: ALB/GLOB Ratio 0.5 RATIO (0.9-2.4); Globulin 3.8 g/dL (2.2-4.2); LDH 240 U/L (87-241); Protein, Total 5.6 g/dL (6.4-8.2)
[2023-01-20] MEDS: Lidocaine 2% (20 ml mdv) 20 ML Vial INFILT (11:35)
--- NOTE | 2023-01-20 11:40 | RAD_ITS ---
HISTORY: POST THORA. TECHNIQUE: XR Chest 2 Views. COMPARISON: 01/14/2023. FINDINGS: LINES/TUBES: Left chest wall port with tip at the superior cavoatrial junction. CARDIOMEDIASTINAL BORDERS: Stable. LUNGS: Mild interval change in pattern of bilateral pneumonia. PLEURA: Mild pleural effusions without pneumothorax. RAD/Chest Insp/Exp 2 View IMPRESSION: Bilateral pneumonia. No pneumothorax identified. Electronically Signed: Julieth Bennett MD at 13:06 EST ,
--- NOTE | 2023-01-20 11:55 | PCM.OP.PRO ---
Procedure Report Date of Procedure: 01/20/23 Assessment & Plan Assessment/Plan (1) Pleural effusion, right: PLAN: PROCEDURE: Ultrasound Guided Thoracentesis ORDERING PROVIDER: Dr. Michael Carrasco INDICATION: Male, 72 years old. Right pleural effusion. PROVIDER: MYRA Zuniga PROCEDURE: The risks, benefits, and alternatives to the procedure were explained to the patient. The specific risks of bleeding, infection, and pneumothorax requiring chest tube insertion were discussed and accepted. Written informed consent was obtained. The patient was placed in the sitting, upright position. Ultrasonographic evaluation of the bilateral lower pleural spaces was carried out. An adequate pocket was identified in the right lower pleural space.The overlying skin was prepped and draped in sterile fashion. 2% lidocaine was administered subcutaneously for local anesthesia. Under ultrasound guidance, a 5-Upper Sorbian thoracentesis needle/catheter system was advanced into the right posterior lower pleural fluid collection. 490 ml of light sarai colored fluid was drained. 100 mL of this fluid was collected and sent to the lab for analysis, as per requesting physician. The catheter was removed, and a sterile dressing was applied. The patient tolerated the procedure well. A chest x-ray was ordered. IMPRESSION: Successful ultrasound-guided thoracentesis of right pleural effusion. Procedures Radiology Radiology US Procedures: [id number] Thoracentesis
[2023-01-20 11:58] LABS: Cytology, Body Fluid / CSF SEE PATHOLOGY REPORT
[2023-01-20] MEDS: Jevity 1.5. 1,000 ML Bottle 237 ML GT ×4 (12:12→22:24)
[2023-01-20 12:13] LABS: Body Fluid Mononuclear WBC # 0.584 10^3/uL; Body Fluid Mononuclear WBC % 88.2 %; Body Fluid Polynuclear WBC # 0.078 10^3/uL; Body Fluid Polynuclear WBC % 11.8 %; Body Fluid Total Cells Counted 1.064 10^3/ul; White Blood Count/Body Fluid 0.662 10^3/uL
[2023-01-20] MEDS: Vancomycin Trough/Random Due 1 LAB MC (12:13)
[2023-01-20] MEDS: Enoxaparin 40 MG/0.4 ML Syringe SC (12:13)
[2023-01-20] MEDS: Menthol/Lanolin/Calamine/Znox 113 GM Tube 1 APPLIC TOPICAL ×2 (12:15→22:24)
[2023-01-20 12:16] LABS: Auto B Fluid Analyzer BKGD Ct COUNTS W/IN LIMITS (W/IN LIMITS); Color/Body Fluid LT YEL; Source- Body Fluid THORACENTESIS
[2023-01-20 12:17] LABS: Appearance/Body Fluid SL CLDY
[2023-01-20 12:45] LABS: Vancomycin, Trough Level 26.1 ug/mL (5.0-15.0)
--- NOTE | 2023-01-20 12:59 | PCM.RX.CS ---
Consult Antibiotic Management Pharmacy has been consulted to manage selected antiobiotic: Vancomycin Type of Intervention Type of Consult: Follow-up Prior Doses of Antibiotics Prior Doses of Antibiotics Received/Current Regimen: current dose is vanc 750mg IV q12h Labs Labs: Sodium 136 mmol/L (136-145) 01/20/23 07:50 Potassium 3.4 mmol/L (3.5-5.1) L 01/20/23 07:50 Chloride 95 mmol/L (98-107) L 01/20/23 07:50 Carbon Dioxide 37.0 mmol/L (21.0-32.0) H 01/20/23 07:50 Anion Gap 4 (5-15) L 01/20/23 07:50 BUN 32 mg/dL (7-18) H 01/20/23 07:50 Creatinine 1.08 mg/dL (0.70-1.30) 01/20/23 07:50 Est GFR (MDRD) Af Amer 87 mL/min (>60) 01/20/23 07:50 Est GFR (MDRD) Non-Af 72 mL/min (>60) 01/20/23 07:50 BUN/Creatinine Ratio 29.6 RATIO (10-20) H 01/20/23 07:50 Glucose 129 mg/dL (74-106) H 01/20/23 07:50 Vancomycin Trough 26.1 ug/mL (5.0-15.0) H 01/20/23 12:10 Random Vancomycin 17.2 ug/mL (0.0-15.0) H 01/16/23 11:00 Microbiology Microbiology: Microbiology 01/14/23 09:15 Blood Culture (Wb) - Port Blood Culture - Final No growth. 01/14/23 08:07 Blood Culture (Wb) - Line Draw Blood Culture - Final No growth in 5 days. 01/14/23 18:00 Sputum, Expectorated/Coughed Gram Stain - Final 01/14/23 18:00 Sputum, Expectorated/Coughed Respiratory Culture - Final Mixed normal respiratory edith. No Streptococcus pneumoniae, beta-hemolytic Streptococcus or Staphylococcus aureus isolated. 01/14/23 15:40 Mucosa - Nasopharyngeal Coronavirus COVID-19 PCR - Final 01/14/23 15:40 Mucosa - Nasopharyngeal Respiratory Panel (PCR) - Final 01/14/23 15:40 Urine, Random Legionella Antigen - Final 01/14/23 15:40 Urine, Random Streptococcus pneumoniae Antigen (M - Final 01/14/23 07:59 Nasal Secretion SARS-CoV-2 & FLU Antigen (Rapid) - Final Dosing Weight Weight used for dosin.7 kg Estimated Creatinine Clearance Estimated Creatinine Clearance: 66 ml/min Goal Trough Goal Trough: 15-20 mcg/mL Pharmacy Plan for Drug Dosing Pharmacy Plan for Drug Dosing: The vanc trough drawn at 12:10 today (approx 10 hours after the previous dose) was 26.1. It would have been slightly lower if drawn closer to the 11.5-12 hour ashish after the last dose but still above goal range of 15-20. Therefore, will hold further dosing at this time and order a vanc random level to be drawn tomorrow morning with AM labs. Will use that result to determine if dosing can be resumed at that time. Pharmacy Service will continue to monitor and adjust dosing as required. Follow-Up Labs Follow-Up Labs: Trough: Vancomycin (random) Date/Time Labs Ordered Labs to be done on [date and time ordered]: 01/21/23 06:00
[2023-01-20 13:17] LABS: Glucose, Body Fluid 125 mg/dL (40-70); LDH,Body Fluid 134 Units/L (Not Establ.); Protein, Body Fluid 2.5 g/dL (Not Establ.); Red Cell Count/Body Fluid 132 /mm3
[2023-01-20 13:28] LABS: Lymphocytes 7 %; Mesothelial Cells 13 %; Monocytes 5 %; Neutrophil (Segs) 17 %; Other Cell Type/BF 58 %
[2023-01-20 13:29] LABS: Body Fluid QC Type(s) BF1Q
--- NOTE | 2023-01-20 19:07 | PCM.PN.HOSP ---
Reason for Visit Reason for Visit: Diagnoses Pleural effusion, not elsewhere classified (01/14/23) Acute respiratory failure with hypoxia (01/14/23) Other specified abnormal findings of blood chemistry (01/14/23) Displacement of other gastrointestinal prosthetic devices, implants and grafts, initial encounter (01/14/23) Subjective Subjective Patient was seen and examined today, he underwent a right thoracentesis today and had 500 cc of fluid removed, I briefly talked with pulmonary medicine about his care, they advise keeping the patient here tonight and reevaluate him tomorrow morning. Patient is currently on room air. I have elected to continue the patient's IV Lasix for now. I have elected to start his Eliquis tomorrow, he most probably will be discharged tomorrow if he is medically stable. Objective Data Objective Data Vital Signs: Vital Signs Temp Pulse Resp BP Pulse Ox O2 Del Method O2 Flow Rate 97.8 F 78 18 134/64 H 93 Room Air 2 01/20/23 15:21 01/20/23 16:29 01/20/23 16:29 01/20/23 15:21 01/20/23 15:21 01/20/23 15:21 01/20/23 12:04 FiO2 30 01/15/23 05:39 Oxygen Flow Rate (L/min) [2] 2 Oxygen Flow Rate (L/min) [1 ( 2 Initial Baseline)] Oxygen Flow Rate (L/min) 2 Oxygen Delivery Method [2] Nasal Cannula Oxygen Delivery Method [1 ( Nasal Cannula Initial Baseline)] Oxygen Delivery Method Room Air Weight: 88.7 kg Body Mass Index (BMI) 28.0 Intake & Output: Intake and Output for Last 24 Hours 01/18/23 01/19/23 01/20/23 23:59 23:59 23:59 Intake Total 1612 / 1612 2772 / 2772 1120 / 1120 Output Total 590 / 590 Balance 1612 / 1612 2772 / 2772 530 / 530 Lab / Micro Data 01/19/23 06:02 01/20/23 07:50 Labs: Laboratory Results - last 24 hr 01/19/23 20:46: PT 15.4 H, INR 1.2, APTT 20.4 L 01/20/23 07:50: Sodium 136, Potassium 3.4 L, Chloride 95 L, Carbon Dioxide 37.0 H, Anion Gap 4 L, BUN 32 H, Creatinine 1.08, Estim Creat Clear Calc 65.72, Est GFR (MDRD) Af Amer 87, Est GFR (MDRD) Non-Af 72, BUN/Creatinine Ratio 29.6 H, Glucose 129 H, Calcium 9.1, Lactate Dehydrogenase 240, Total Protein 5.6 L, Globulin 3.8, Albumin/Globulin Ratio 0.5 L 01/20/23 11:35: Fluid Source THORACENTESIS, Fluid Color LT YEL, Fluid Appearance SL CLDY, Fluid WBC 0.662, Fluid RBC 132, Fluid Tot Cell Count 1.064, Fld Polynuclear WBCs # 0.078, Fld Polynuclear WBCs % 11.8, Fluid Mononuclear WBCs 0.584, Fld Mononuclear WBCs % 88.2, Fluid Neutrophils 17, Fluid Lymphocytes 7, Fluid Monocytes 5, Fld Mesothelial Cells 13, Fluid Other Cells 58, Fl Pathologist Comment May follow, Fluid Glucose 125 H, Fluid Total Protein 2.5, Fluid LDH 134, Fluid Comment 2 SEE COMMENT 01/20/23 12:10: Vancomycin Trough 26.1 H Micro: Microbiology 01/20/23 11:35 Fluid - Thoracentesis Fluid Gram Stain - Final 01/14/23 09:15 Blood Culture (Wb) - Port Blood Culture - Final No growth. 01/14/23 08:07 Blood Culture (Wb) - Line Draw Blood Culture - Final No growth in 5 days. 01/14/23 18:00 Sputum, Expectorated/Coughed Gram Stain - Final 01/14/23 18:00 Sputum, Expectorated/Coughed Respiratory Culture - Final Mixed normal respiratory edith. No Streptococcus pneumoniae, beta-hemolytic Streptococcus or Staphylococcus aureus isolated. 01/14/23 15:40 Mucosa - Nasopharyngeal Coronavirus COVID-19 PCR - Final 01/14/23 15:40 Mucosa - Nasopharyngeal Respiratory Panel (PCR) - Final 01/14/23 15:40 Urine, Random Legionella Antigen - Final 01/14/23 15:40 Urine, Random Streptococcus pneumoniae Antigen (M - Final 01/14/23 07:59 Nasal Secretion SARS-CoV-2 & FLU Antigen (Rapid) - Final Radiography Diagnostic Testing: Radiology Impression Chest CT 01/19/23 17:38 IMPRESSION: ASHD without evidence for aortic aneurysm. Bilateral perihilar infiltrate or pulmonary edema with large pleural effusions and consolidation of the lower lobes. Incidental finding of fluid-filled proximal esophagus possibly due to obstructing lesion at the tracheobronchial angle. Clinical correlation is recommended in this regard Electronically Signed: Sam Flores MD at 19:31 EST , Chest X-Ray 01/20/23 11:40 IMPRESSION: Bilateral pneumonia. No pneumothorax identified. Electronically Signed: Julieth Bennett MD at 13:06 EST , Physical Exam Narrative alert, oriented x3, no apparent distress and average body habitus General Appearance: cooperative, well kempt and well developed Orientation / Consciousness: awake, oriented to person, oriented to place and oriented to time HEENT normocephalic, head/scalp atraumatic and moist oral mucous membranes Eyes PERRL, EOMs intact bilaterally and conjunctivae normal Neck supple, no JVD, thyroid normal and no carotid bruits General: trachea midline Resp normal respiratory effort, no retractions and no use of accessory muscles Resp Narrative: Diminished breath sounds are noted at the bases bilaterally Auscultation: Negative for rales, rhonchi or wheezes Cardio regular rate, regular rhythm, S1 normal heart sound, S2 normal heart sound, no murmurs, no rub and no gallops GI normal to inspection, nondistended, normoactive bowel sounds, soft to palpation, non-tender and non-distended GI Narrative: Sawant is in place through the abdominal wall acting as a PEG tube Extremity no clubbing, cyanosis or edema Skin no rashes or lesions noted General Skin Exam: no breakdown Neuro oriented x3, CN's II-XII intact bilaterally, moves all extremities, no focal motor deficits and no sensory deficits noted Sensorium / Orientation: awake, alert, oriented to person, oriented to place and oriented to time Speech: speech normal Psych affect normal Assessment & Plan Assessment/Plan (1) Pleural effusion, right: (2) Acute hypoxic respiratory failure: PLAN: Plan 1. Acute hypoxic respiratory failure-etiology unclear at this time, I have elected to keep the patient on IV Lasix for now, he will be reevaluated tomorrow morning, patient is presently on room air at rest #2 elevated troponin-secondary to demand ischemia, non-STEMI was ruled out #3 esophageal cancer-complicates care, medical course, recovery, and prognosis #4 type 1 diabetes-I gave the patient's family permission for him to use his own insulin pump #5 paroxysmal atrial fibrillation-patient's Eliquis will continue to be held at this time, he may need to undergo thoracentesis due to his pleural effusions, patient is on rate limiting medications #6 status post renal transplant-continue prednisone and tacrolimus, patient will remain on Bactrim at a therapeutic dose #7 bilateral pleural effusions-patient underwent a right thoracentesis today with removal of approximately 500 cc of fluid, chest x-ray will be repeated tomorrow, patient will remain on IV Lasix I transition the patient over to liquid Augmentin through his PEG tube and stopped IV antibiotics today, he will finish a 10-day course of antibiotics. Total clinical time spent by myself addressing the patient's medical issues, reviewing all of his data, and collaborating with patient's care team: 35 minutes Charges/Coding Visit Charges Inpatient E&M: 25185 [facility] L2
--- NOTE | 2023-01-20 21:03 | CPS ---
Pt refused PAP therapy for the night.
[2023-01-20] MEDS: Amox/Clav 400mg/5ml Susp 800 MG GT (22:22)
[2023-01-21] VITALS (8 sets, daily range): BP systolic 116–131; BP diastolic 69–78; PULSE 77–84; RESP 16–20; TEMP 36.4–36.9; O2SAT 91–96
[2023-01-21] MEDS: Menthol/Lanolin/Calamine/Znox 113 GM Tube 1 APPLIC TOPICAL (05:51)
[2023-01-21] MEDS: Furosemide 40 MG/4 ML Vial IV (05:51)
[2023-01-21] MEDS: Ipratropium/Albuterol Sulfate 3 ML AMPUL.NEB INHALATION ×3 (07:21→15:18)
[2023-01-21 07:32] LABS: Absolute Lymphocyte Count 0.44 X10^3/uL (0.83-4.51); Absolute Neutrophil Count 6.5 X10^3/uL (2.0-7.7); Basophil# 0.02 X10^3/uL; Basophil% 0.3 % (0-1); Eosinophil# 0.22 X10^3/uL; Eosinophils% 2.8 % (0-5); Hematocrit 28.1 % (40-54); Hemoglobin 8.3 g/dL (13.0-16.5); Lymphocyte # 0.44 X10^3/ul (0.83-4.51); Lymphocyte % 5.5 % (19-41); Mean Corp Hgb Conc 29.5 g/dL (32-36); Mean Corpuscular Hgb 24.2 pg (27.0-32.0); Mean Corpuscular Volume 81.9 fL (80-94); Mean Platelet Vol. 10.7 fl (6.2-12.0); Monocyte# 0.66 X10^3/uL; Monocyte% 8.3 % (0-10); NRBC Flagged by Analyzer 0 % (0-5); Neutrophil # 6.49 X10^3/uL (2.7-7.7); Neutrophil % 81.3 % (47-70); POSITIVE DIFFERENTIAL YES; Platelet Count 170 K/mm3 (150-450); RBC Distribution Width CV 17.8 % (11.6-14.6); RBC Distribution Width SD 51.6 fl (35.1-43.9); Red Blood Count 3.43 M/mm3 (4.6-6.2)
[2023-01-21 07:34] LABS: Differential Indicated SCAN CRITERIA MET
[2023-01-21 07:50] LABS: Anion Gap 4 (5-15); BUN 28 mg/dL (7-18); BUN/Creat Ratio 25.2 RATIO (10-20); Calcium,Total 8.9 mg/dL (8.5-10.1); Chloride 94 mmol/L (98-107); Creatinine, Serum 1.11 mg/dL (0.70-1.30); EST Glomerular Filtration Rate 70 mL/min (>60); Est Glom Filt Rate - Afr Amer 84 mL/min (>60); Estimated Creatinine Clearance 63.94 ml/min; Glucose 155 mg/dL (74-106); Potassium 3.5 mmol/L (3.5-5.1); Sodium Level 136 mmol/L (136-145)
[2023-01-21] MEDS: predniSONE 5 MG Tablet GT (09:24)
--- NOTE | 2023-01-21 09:24 | PN.CC_ITS ---
Assessment & Plan Assessment/Plan (1) Acute hypoxic respiratory failure: PLAN: Plan RECOMMENDATIONS: 1. Okay to transition to baseline Bactrim suppressive therapy with 2 days of systemic antibiotics to complete course 2. Continue to wean supplemental oxygen to maintain saturations at or above 90%. 3. Obtain walking oximetry with discharge with supplemental oxygen if necessary 4. Ongoing bronchopulmonary hygiene. 5. Encourage incentive spirometer use and mobilize patient as tolerated. 6. Follow-up with nurse practitioner in our office in 2 weeks IMPRESSIONS: 1. Bilateral pleural effusions with hypoxic respiratory insufficiency Patient was CT scan overnight showing bilateral pleural effusions, right greater than left. Thoracentesis is consistent with a transudate etiology.. Patient should have a walking oximetry and then potentially could be discharged with outpatient follow-up. Patient will need repeat chest imaging in the future (4 to 6 weeks) to ensure resolution. Cannot exclude the need for bronchoscopy to evaluate for atypical organisms such as Mycobacterium or fungus if he fails to improve. 2. History of coronary artery disease/atrial fibrillation/diabetes mellitus/renal transplantation/esophageal cancer status postchemotherapy Complicates care, management, recovery and prognosis. Continue home medications as indicated. This note was generated with [employer] dictation software. It may contain incorrect words, spelling, and punctuation that were not noted in checking the note before signing. Subjective Subjective Patient did okay overnight. Patient was on room air prior to going to sleep, but was placed on supplemental oxygen overnight. Patient is not reporting any change in respiratory status. Patient did report a poor night secondary to polyuria, but no pain or productive cough of phlegm reported. Objective Data Objective Data Vital Signs: Vital Signs Temp Pulse Resp BP Pulse Ox O2 Del Method O2 Flow Rate 36.9 C 79 20 H 116/69 96 Nasal Cannula 5 01/21/23 03:30 01/21/23 07:21 01/21/23 07:21 01/21/23 03:30 01/21/23 07:21 01/21/23 07:21 01/21/23 07:21 FiO2 30 01/15/23 05:39 Oxygen Flow Rate (L/min) [2] 2 Oxygen Flow Rate (L/min) [1 ( 2 Initial Baseline)] Oxygen Flow Rate (L/min) 5 Oxygen Delivery Method [2] Nasal Cannula Oxygen Delivery Method [1 ( Nasal Cannula Initial Baseline)] Oxygen Delivery Method Nasal Cannula Weight: 88.7 kg Body Mass Index (BMI) 28.0 Intake & Output: Intake and Output for Last 24 Hours 01/19/23 01/20/23 01/21/23 23:59 23:59 23:59 Intake Total 2772 / 2772 1407 / 1407 0 / 0 Output Total 590 / 590 Balance 2772 / 2772 817 / 817 0 / 0 Lab / Micro Data Attestation: I reviewed the patient's lab results. Lab results narrative: Patient's thoracentesis is consistent with a transudate pattern 01/21/23 07:05 01/21/23 07:05 Labs: Laboratory Results - last 24 hr 01/20/23 07:50: Lactate Dehydrogenase 240, Total Protein 5.6 L, Globulin 3.8, Albumin/Globulin Ratio 0.5 L 01/20/23 11:35: Fluid Source THORACENTESIS, Fluid Color LT YEL, Fluid Appearance SL CLDY, Fluid WBC 0.662, Fluid RBC 132, Fluid Tot Cell Count 1.064, Fld Polynuclear WBCs # 0.078, Fld Polynuclear WBCs % 11.8, Fluid Mononuclear WBCs 0.584, Fld Mononuclear WBCs % 88.2, Fluid Neutrophils 17, Fluid Lymphocytes 7, Fluid Monocytes 5, Fld Mesothelial Cells 13, Fluid Other Cells 58, Fl Patholog ist Comment May follow, Fluid Glucose 125 H, Fluid Total Protein 2.5, Fluid LDH 134, Fluid Comment 2 SEE COMMENT 01/20/23 12:10: Vancomycin Trough 26.1 H 01/21/23 07:05: WBC 8.0, RBC 3.43 L, Hgb 8.3 L, Hct 28.1 L, MCV 81.9, MCH 24.2 L , MCHC 29.5 L, RDW Std Deviation 51.6 H, RDW Coeff of Ayaka 17.8 H, Plt Count 170, MPV 10.7, Immature Gran % (Auto) 1.800 H, Neut % (Auto) 81.3 H, Lymph % (Auto) 5.5 L, Toole % (Auto) 8.3, Eos % (Auto) 2.8, Baso % (Auto) 0.3, Absolute Neuts (auto) 6.5, Absolute Lymphs (auto) 0.44 L, Nucleated RBC % 0, Differential Comment COMMENT, Sodium 136, Potassium 3.5, Chloride 94 L, Carbon Dioxide 38.0 H , Anion Gap 4 L, BUN 28 H, Creatinine 1.11, Estim Creat Clear Calc 63.94, Est GFR (MDRD) Af Amer 84, Est GFR (MDRD) Non-Af 70, BUN/Creatinine Ratio 25.2 H, Glucose 155 H, Calcium 8.9 Micro: Microbiology 01/20/23 11:35 Fluid - Thoracentesis Fluid Gram Stain - Final 01/14/23 09:15 Blood Culture (Wb) - Port Blood Culture - Final No growth. 01/14/23 08:07 Blood Culture (Wb) - Line Draw Blood Culture - Final No growth in 5 days. 01/14/23 18:00 Sputum, Expectorated/Coughed Gram Stain - Final 01/14/23 18:00 Sputum, Expectorated/Coughed Respiratory Culture - Final Mixed normal respiratory edith. No Streptococcus pneumoniae, beta-hemolytic Streptococcus or Staphylococcus aureus isolated. 01/14/23 15:40 Mucosa - Nasopharyngeal Coronavirus COVID-19 PCR - Final 01/14/23 15:40 Mucosa - Nasopharyngeal Respiratory Panel (PCR) - Final 01/14/23 15:40 Urine, Random Legionella Antigen - Final 01/14/23 15:40 Urine, Random Streptococcus pneumoniae Antigen (M - Final 01/14/23 07:59 Nasal Secretion SARS-CoV-2 & FLU Antigen (Rapid) - Final Radiography Diagnostic Testing: Radiology Impression Chest X-Ray 01/20/23 11:40 IMPRESSION: Bilateral pneumonia. No pneumothorax identified. Electronically Signed: Julieth Bennett MD at 13:06 [facility] [[email or web address]] , Physical Exam Const alert and no apparent distress Constitutional Narrative: Family is present at the bedside. General Appearance: cooperative HEENT normocephalic and head/scalp atraumatic Eyes PERRL, EOMs intact bilaterally, conjunctivae normal and no scleral icterus Neck supple General: trachea midline Chest inspection of chest normal Resp normal respiratory effort and no use of accessory muscles Effort and Inspection: able to speak in complete sentences Auscultation: Negative for rhonchi or wheezes Cardio regular rate and regular rhythm GI normal to inspection, nondistended, normoactive bowel sounds GI Narrative: Sawant catheter in place of GI tube Inspection: GI tube present Extremity no clubbing, cyanosis or edema General Extremity: edema bilateral (2+) lower extremity; Negative for clubbing Skin no rashes or lesions noted Neuro CN's II-XII intact bilaterally, moves all extremities and no focal motor deficits Psych cooperative and affect normal Charges/Coding Visit Charges Inpatient E&M: 42659 Subs Hosp L2
[2023-01-21] MEDS: SMZ/TPM Suspension 20 ML GT (09:25)
[2023-01-21] MEDS: Amiodarone 200 MG Tablet GT (09:25)
[2023-01-21] MEDS: Jevity 1.5. 1,000 ML Bottle 237 ML GT ×2 (09:25→13:28)
[2023-01-21] MEDS: Potassium Chloride Oral Soln 20 MEQ/15 ML UDC 40 MEQ GT (09:26)
[2023-01-21] MEDS: NYSTATIN 500,000 UNIT/5 ML UDC 500000 UNIT PO (09:26)
[2023-01-21] MEDS: Tacrolimus Anhydrous 1 MG Capsule PO (09:26)
[2023-01-21] MEDS: Lansoprazole 15 MG Capsule.DR GT (09:26)
[2023-01-21] MEDS: Metoprolol Tartrate 100 MG Tablet GT (09:26)
[2023-01-21] MEDS: Enoxaparin 40 MG/0.4 ML Syringe SC (09:27)
[2023-01-21] MEDS: Amox/Clav 400mg/5ml Susp 800 MG GT (09:32)
[2023-01-21] MEDS: AcetaZOLAMIDE 250 MG Tablet PO (09:32)
[2023-01-21 15:01] LABS: Pathologist Comment/Body Fluid Reviewed
--- NOTE | 2023-01-21 15:06 | CASEMGMT ---
RN CM updated that patient will be discharging today. Patient does not qualify for home oxygen. RN CM in to discuss needs at discharge. Patient and deny needs at discharge. Patient and had no further questions or concerns.
--- NOTE | 2023-01-21 15:15 | DCINST_ITS ---
Discharge Instructions Diet Discharge Diet: - (Nothing oral) Activity Discharge Activity: Return to Normal Activity Weight Bearing Status: Full weight bearing Follow Up Care Test Results: Test results from this visit will be discussed in further detail at your follow- up appointment, if applicable. Discharge Plan Admission Admit Date/Time: 01/14/23 09:16 Primary Reason for Your Visit: Pneumonia, congestive heart failure Attending Provider: Sebastian Sorenson Primary Care Provider: Mikayla Lopez Consulting Providers: Zachariah Dickey; Yordy Allen Instructions Patient Instructions: RAD RN Thoracentesis Dc Discharge Orders/Prescriptions Prescriptions: New amoxicillin-pot clavulanate 400-57 mg/5 mL Suspension For Reconstitution 10 ml G-tube BID@0900,2100 Qty: 50 0RF Rx Instructions: START TONITE FOR A TOTAL OF 5 DOSES Continued prednisone 2.5 MG tablet 5 mg PO DAILY Patient Comments: STEROID insulin aspart U-100 [Novolog FlexPen U-100 Insulin] 100 UNITS/ML insulin pen See Protocol subcut CONT Protocol: 6. Sliding Scale Insulin Custom Condition: mg/dl range Dose/Route: Number of Units Instruction: using insulin pump Protocol Text: Custom Sliding Scale Rx Instructions: insulin pump metoprolol tartrate 100 mg Tablet 100 mg G-tube BID 30 Days Qty: 60 0RF Jevity 1.5 Victorino 0.06 gram-1.5 kcal/mL liquid 237 ml feeding tube .COMPLEX Patient Comments: 60ML WATER FLUSH BEFORE AND AFTER EACH BOLUS Rx Instructions: 237 mL via feeding tube 0900,1200,1500,1800,2100; ondansetron 8 mg tablet,disintegrating 8 mg PO Q8H PRN (Reason: nausea and vomiting) 30 Days Qty: 30 0RF nystatin 100,000 unit/mL suspension 5 ml PO 4X/DAY Rx Instructions: swish and swallow omeprazole 10 mg capsule,delayed release(DR/EC) See Rx Instructions feeding tube DAILY Rx Instructions: 10ML via feeding tube daily; Changed amiodarone 200 mg tablet 200 mg feeding tube DAILY Qty: 30 11RF bumetanide 1 mg tablet 1 mg feeding tube DAILY Qty: 1 0RF tacrolimus [Prograf] 1 MG capsule 1 mg feeding tube BID Qty: 1 0RF Patient Comments: KIDNEYS rosuvastatin [Crestor] 20 MG tablet 20 mg feeding tube QHS Qty: 1 0RF Patient Comments: decrease cholesterol Eliquis 5 mg tablet 5 mg feeding tube BID Qty: 60 11RF sulfamethoxazole-trimethoprim 1 tab G-tube DAILY Qty: 1 0RF Rx Instructions: 1 tablet daily on m , thursday, thursday Referrals / Follow Up: Michael Carrasco MD [[facility] Staff - Active Staff] - See Referral Note (Call to schedule an appointment in 2 weeks-you will see the nurse practitioner) Mikayla Lopez MD [Primary Care Provider] - Francisco Anthony DO [Med Staff - Active Staff] - See Referral Note (As scheduled) Ray Jara MD [Non-Staff] - See Referral Note (Contact his office to schedule replacement of your feeding tube) Disposition Disposition (needs filled in before D/C Order can be placed): Home, Self Care
--- NOTE | 2023-01-21 15:33 | PCM.DC.SUM ---
Providers Date of Admission: 01/14/23 Date of Discharge: 01/21/23 Primary Care Physician: Dr. Mikayla Lopez MD Consultations 01/15/23 03:01 Consult: Value Analysis Coordinator / Pulmonary Medicine Routine Consulting Provider: Pulmonary Medicine [place] Reason for Consult: Acute hypoxic respiratory failure EMERGENT Consult: No Notified: Yes Date Notified: 01/15/23 Time Notified: 06:48 Method of Notification: Text 01/17/23 22:40 Consult: General Surgery Routine Consulting Provider: Zachariah Dickey Reason for Consult: Peg tube dislodgement EMERGENT Consult: No Notified: Yes Date Notified: 01/17/23 Time Notified: 22:40 Method of Notification: Verbal Reason For Visit: RESP FAILURE Diagnosis Discharge Diagnosis (1) Acute hypoxic respiratory failure: Status: Acute Code(s): J96.01 - Acute respiratory failure with hypoxia Plan 1. Acute hypoxic respiratory failure-etiology unclear at this time, I have elected to keep the patient on IV Lasix for now, he will be reevaluated tomorrow morning, patient is presently on room air at rest #2 elevated troponin-secondary to demand ischemia, non-STEMI was ruled out #3 esophageal cancer-complicates care, medical course, recovery, and prognosis #4 type 1 diabetes-I gave the patient's family permission for him to use his own insulin pump #5 paroxysmal atrial fibrillation-patient's Eliquis will continue to be held at this time, he may need to undergo thoracentesis due to his pleural effusions, patient is on rate limiting medications #6 status post renal transplant-continue prednisone and tacrolimus, patient will remain on Bactrim at a therapeutic dose #7 bilateral pleural effusions-patient underwent a right thoracentesis today with removal of approximately 500 cc of fluid, chest x-ray will be repeated tomorrow, patient will remain on IV Lasix I transition the patient over to liquid Augmentin through his PEG tube and stopped IV antibiotics today, he will finish a 10-day course of antibiotics. Total clinical time spent by myself addressing the patient's medical issues, reviewing all of his data, and collaborating with patient's care team: 35 minutes Medications at Discharge Home Medications prednisone 2.5 mg tablet 5 mg PO DAILY steriod 05/11/15 insulin aspart U-100 100 unit/mL (3 mL) subcutaneous pen (Novolog FlexPen U-100 Insulin aspart) See Protocol subcut CONT DM 02/06/18 lactose-reduced food with fiber 0.06 gram-1.5 kcal/mL oral liquid (Jevity 1.5 Victorino) 237 ml feeding tube .COMPLEX NUTRITION 10/16/22 ondansetron 8 mg disintegrating tablet 8 mg PO Q8H PRN nausea and vomiting 30 days #30 tabs 10/17/22 nystatin 100,000 unit/mL oral suspension 5 ml PO 4X/DAY MOUTH 10/24/22 omeprazole 10 mg capsule,delayed release See Rx Instructions feeding tube DAILY reflux 10/24/22 metoprolol tartrate 100 mg tablet 100 mg G-tube BID 30 days #60 tabs 11/28/22 amiodarone 200 mg tablet 200 mg feeding tube DAILY #30 tabs 01/21/23 amoxicillin 400 mg-potassium clavulanate 57 mg/5 mL oral suspension 10 ml G-tube BID@0900,2100 #50 mL 01/21/23 apixaban 5 mg tablet (Eliquis) 5 mg feeding tube BID #60 tabs 01/21/23 bumetanide 1 mg tablet 1 mg feeding tube DAILY DIURETIC #1 TAB 01/21/23 rosuvastatin 20 mg tablet (Crestor) 20 mg feeding tube QHS cholesterol #1 TAB 01/21/23 sulfamethoxazole-trimethoprim 1 tab G-tube DAILY antibiotic #1 TAB 01/21/23 tacrolimus 1 mg capsule, immediate-release (Prograf) 1 mg feeding tube BID anit rejection #1 cap 01/21/23 Hospital Course Operations None Procedures 2-D Echocardiogram and Thoracentesis Summary of Care Provided Minutes Spent on Discharge: 33 Hospital Course: This 72-year-old white male presented via EMS with complaints of altered level of consciousness. His blood sugar was also low. Patient's family denies patient having any fever, he does cough on occasion. Patient is on an insulin pump for his diabetes and stated that the blood sugar was low. Patient has a history of esophageal cancer with obstruction of the esophagus, he is n.p.o. and receives feedings through a tube. Work-up in the ER revealed the patient's blood pressure to be elevated at 100 degrees, EKG was obtained and showed a normal sinus rhythm, no evidence of STEMI was noted, patient's white blood cell count was elevated at 12.8, hemoglobin was 7.6, BUN was elevated at 26 and sodium was 129. Troponin was 53, chest x-ray was obtained and showed bilateral infiltrates which were diffuse. COVID and influenza swabs were negative, he was given IV fluids and started on antibiotics for community-acquired pneumonia. Patient required supplemental oxygen in the emergency room to keep his pulse ox above 90-he required 5 L via nasal cannula, patient was admitted to PCU, he was treated with IV antibiotics and given IV Lasix for possible CHF, his oxygen requirement slowly decreased, patient had a CAT scan of his chest which showed obstruction of the esophagus with fluid present, there were diffuse infiltrates noted and bilateral pleural effusions worse on the right. Patient was seen in consultation by pulmonary medicine, they recommended treating the patient for congestive heart failure and continuing a 10-day course of antibiotics until completion and recommended a thoracentesis which the patient underwent without complications. Patient's pulse ox on the day of discharge was normal on room air, he did not require supplemental oxygen at the time of discharge. Patient's echocardiogram showed a normal EF. Patient's PEG tube came out, general surgery replaced the PEG tube with a Sawant catheter due to the small diameter of the PEG tube which we did not have at this hospital. On 01/21/2023, patient was seen and examined: alert, oriented x3, no apparent distress and average body habitus General Appearance: cooperative, well kempt and well developed Orientation / Consciousness: awake, oriented to person, oriented to place and oriented to time HEENT normocephalic, head/scalp atraumatic and moist oral mucous membranes Eyes PERRL, EOMs intact bilaterally and conjunctivae normal Neck supple, no JVD, thyroid normal and no carotid bruits General: trachea midline Resp normal respiratory effort, no retractions and no use of accessory muscles Resp Narrative: Diminished breath sounds are noted at the bases bilaterally Auscultation: Negative for rales, rhonchi or wheezes Cardio regular rate, regular rhythm, S1 normal heart sound, S2 normal heart sound, no murmurs, no rub and no gallops GI normal to inspection, nondistended, normoactive bowel sounds, soft to palpation, non-tender and non-distended GI Narrative: Sawant is in place through the abdominal wall acting as a PEG tube Extremity no clubbing, cyanosis or edema Skin no rashes or lesions noted General Skin Exam: no breakdown Neuro oriented x3, CN's II-XII intact bilaterally, moves all extremities, no focal motor deficits and no sensory deficits noted Sensorium / Orientation: awake, alert, oriented to person, oriented to place and oriented to time Speech: speech normal Psych affect normal Patient appears stable for discharge on 01/21/2023. Weight / BMI Weight Weight: 88.7 kg Body Mass Index (BMI) 28.0 ABG / Lab / Microbiology Data 01/21/23 07:05 01/21/23 07:05 Laboratory: Laboratory Results - last 24 hr 01/20/23 11:35: Fl Pathologist Comment Reviewed, Miscellaneous Cytology SEE PATHOLOGY REPORT 01/21/23 07:05: WBC 8.0, RBC 3.43 L, Hgb 8.3 L, Hct 28.1 L, MCV 81.9, MCH 24.2 L, MCHC 29.5 L, RDW Std Deviation 51.6 H, RDW Coeff of Ayaka 17.8 H, Plt Count 170, MPV 10.7, Immature Gran % (Auto) 1.800 H, Neut % (Auto) 81.3 H, Lymph % (Auto) 5.5 L, Mcintosh % (Auto) 8.3, Eos % (Auto) 2.8, Baso % (Auto) 0.3, Absolute Neuts (auto) 6.5, Absolute Lymphs (auto) 0.44 L, Nucleated RBC % 0, Differential Comment COMMENT, Sodium 136, Potassium 3.5, Chloride 94 L, Carbon Dioxide 38.0 H, Anion Gap 4 L, BUN 28 H, Creatinine 1.11, Estim Creat Clear Calc 63.94, Est GFR (MDRD) Af Amer 84, Est GFR (MDRD) Non-Af 70, BUN/Creatinine Ratio 25.2 H, Glucose 155 H, Calcium 8.9 Microbiology: Microbiology 01/20/23 11:35 Fluid - Thoracentesis Fluid Gram Stain - Final 01/14/23 09:15 Blood Culture (Wb) - Port Blood Culture - Final No growth. 01/14/23 08:07 Blood Culture (Wb) - Line Draw Blood Culture - Final No growth in 5 days. 01/14/23 18:00 Sputum, Expectorated/Coughed Gram Stain - Final 01/14/23 18:00 Sputum, Expectorated/Coughed Respiratory Culture - Final Mixed normal respiratory edith. No Streptococcus pneumoniae, beta-hemolytic Streptococcus or Staphylococcus aureus isolated. 01/14/23 15:40 Mucosa - Nasopharyngeal Coronavirus COVID-19 PCR - Final 01/14/23 15:40 Mucosa - Nasopharyngeal Respiratory Panel (PCR) - Final 01/14/23 15:40 Urine, Random Legionella Antigen - Final 01/14/23 15:40 Urine, Random Streptococcus pneumoniae Antigen (M - Final 01/14/23 07:59 Nasal Secretion SARS-CoV-2 & FLU Antigen (Rapid) - Final D/C Instructions Discharge Diet: - (Nothing oral) Weight Bearing Status: Full weight bearing Meaningful Use Info Meaningful Use Diagnoses (Choose all that apply): CHF CHF RAD/ARB ordered at discharge?: No Reason RAD/ARB not ordered?: Normal EF Documented LVEF (%): 70 Discharge Plan Admission Admit Date/Time: 01/14/23 09:16 Primary Reason for Your Visit: Pneumonia, congestive heart failure Attending Provider: Sebastian Sorenson Primary Care Provider: Mikayla Lopez Consulting Providers: Zachariah Dickey; Yordy Allen Instructions Patient Instructions: RAD RN Thoracentesis Dc Discharge Orders/Prescriptions Prescriptions: New amoxicillin-pot clavulanate 400-57 mg/5 mL Suspension For Reconstitution 10 ml G-tube BID@0900,2100 Qty: 50 0RF Rx Instructions: START TONITE FOR A TOTAL OF 5 DOSES Continued prednisone 2.5 MG tablet 5 mg PO DAILY Patient Comments: STEROID insulin aspart U-100 [Novolog FlexPen U-100 Insulin] 100 UNITS/ML insulin pen See Protocol subcut CONT Protocol: 6. Sliding Scale Insulin Custom Condition: mg/dl range Dose/Route: Number of Units Instruction: using insulin pump Protocol Text: Custom Sliding Scale Rx Instructions: insulin pump metoprolol tartrate 100 mg Tablet 100 mg G-tube BID 30 Days Qty: 60 0RF Jevity 1.5 Victorino 0.06 gram-1.5 kcal/mL liquid 237 ml feeding tube .COMPLEX Patient Comments: 60ML WATER FLUSH BEFORE AND AFTER EACH BOLUS Rx Instructions: 237 mL via feeding tube 0900,1200,1500,1800,2100; ondansetron 8 mg tablet,disintegrating 8 mg PO Q8H PRN (Reason: nausea and vomiting) 30 Days Qty: 30 0RF nystatin 100,000 unit/mL suspension 5 ml PO 4X/DAY Rx Instructions: swish and swallow omeprazole 10 mg capsule,delayed release(DR/EC) See Rx Instructions feeding tube DAILY Rx Instructions: 10ML via feeding tube daily; Changed amiodarone 200 mg tablet 200 mg feeding tube DAILY Qty: 30 11RF bumetanide 1 mg tablet 1 mg feeding tube DAILY Qty: 1 0RF tacrolimus [Prograf] 1 MG capsule 1 mg feeding tube BID Qty: 1 0RF Patient Comments: KIDNEYS rosuvastatin [Crestor] 20 MG tablet 20 mg feeding tube QHS Qty: 1 0RF Patient Comments: decrease cholesterol Eliquis 5 mg tablet 5 mg feeding tube BID Qty: 60 11RF sulfamethoxazole-trimethoprim 1 tab G-tube DAILY Qty: 1 0RF Rx Instructions: 1 tablet daily on m , thursday, thursday Referrals / Follow Up: Michael Carrasco MD [[facility] Staff - Active Staff] - See Referral Note (Call to schedule an appointment in 2 weeks-you will see the nurse practitioner) Mikayla Lopez MD [Primary Care Provider] - 02/02/23 2:20 pm Francisco Anthony DO [Med Staff - Active Staff] - See Referral Note (As scheduled) Ray Jara MD [Non-Staff] - See Referral Note (Contact his office to schedule replacement of your feeding tube) Disposition Disposition (needs filled in before D/C Order can be placed): Home, Self Care Charges/Coding Visit Charges Inpatient E&M: 73418 Disch Hosp >30min
[2023-01-21] MEDS: 0.9 % NaCl (Sterile) Posiflush 10 mL IV (16:34)
== END 2023-01-21 16:38 | disposition home or self-care (01) | DRG 189 ==
LOC: ED 08:58 → PCU 09:33
PROVIDERS: Internal Medicine Critical Care Medicine; Emergency Provider Emergency Medicine; PCP Internal Medicine; Visit Provider Internal Medicine
DX: J96.01 Acute respiratory failure with hypoxia (principal); J18.9 Pneumonia, unspecified organism; I24.89 Other forms of acute ischemic heart disease; C15.9 Malignant neoplasm of esophagus, unspecified; K94.23 Gastrostomy malfunction; J90 Pleural effusion, not elsewhere classified; Z94.0 Kidney transplant status; E10.21 Type 1 diabetes mellitus with diabetic nephropathy; E10.649 Type 1 diabetes mellitus with hypoglycemia without coma; I48.0 Paroxysmal atrial fibrillation; Z79.4 Long term (current) use of insulin; I10 Essential (primary) hypertension; E78.5 Hyperlipidemia, unspecified; I25.10 Atherosclerotic heart disease of native coronary artery without angina pectoris; I25.2 Old myocardial infarction; Z96.41 Presence of insulin pump (external) (internal); Z79.01 Long term (current) use of anticoagulants; Z79.52 Long term (current) use of systemic steroids; Z79.899 Other long term (current) drug therapy; Z87.891 Personal history of nicotine dependence; Z23 Encounter for immunization
CPT/HCPCS: 32555; 36415; 36591; 36600; 71045; 71046; 71250; 74018; 74177; 80048; 80053; 80202; 81001; 82565; 82803; 82945; 82962; 83605; 83615; 83880; 84156; 84157; 84484; 85025; 85610; 85730; 87040; 87070; 87075; 87205; 87428; 87449; 87633; 87635; 88108; 88305; 88313; 88341; 88342; 89050; 93005; 94003; 94640; 94667; 94668; 94762; 97162; 97166; 97530; 97535; 97802; 97803; 99285; J7030; J7040; J7050; 90662; A4216; J0696; J1940

== ENCOUNTER 2023-02-14 05:31 | Inpatient (IN) | payer OTHER, SELFPAY ==
[2023-02-14] VITALS (23 sets, daily range): BP systolic 114–142; BP diastolic 26–86; PULSE 64–95; RESP 12–28; TEMP 36.4–37.2; O2SAT 71–99; BMI 29.7; BMI 29.5
--- NOTE | 2023-02-14 05:41 | EKG12_ITS ---
Test Reason : SOB Blood Pressure : / mmHG Vent. Rate : 078 BPM Atrial Rate : 078 BPM P-R Int : 174 ms QRS Dur : 090 ms QT Int : 394 ms P-R-T Axes : 010 -67 027 degrees QTc Int : 449 ms Normal sinus rhythm Left axis deviation Inferior infarct , age undetermined Abnormal ECG Confirmed by MELBA NUÑEZ, CINTIA ([id number]), editorial director ADOLFO SIDDIQUI ([id number]) on 02/16/2023 1:39:33 P M Referred By: JENNY Confirmed By:CESAR REILLY MD
--- NOTE | 2023-02-14 05:42 | EX.ED.DYSGE1 ---
HPI History of Present Illness Chief Complaint: Shortness of Breath [facility] Medical History Ambulates with cane Amputation finger Amputation of toe Anemia of chronic disease Atrial fibrillation Chemotherapy adverse reaction Diabetes mellitus, type II Dialysis AV fistula malfunction Esophageal cancer Esophageal cancer Gastric reflux History of steroid therapy HLD (hyperlipidemia) Hyperglycemia due to diabetes mellitus Hypertension Hypertension Hyponatremia Insulin dependent diabetes mellitus NSTEMI (non-ST elevated myocardial infarction) Wears dentures Wears glasses Wears hearing aid Home Medications prednisone 2.5 mg tablet 5 mg PO DAILY steriod 05/11/15 [History Last Taken 04/25/21 08:00] insulin aspart U-100 100 unit/mL (3 mL) subcutaneous pen (Novolog FlexPen U-100 Insulin aspart) See Protocol subcut CONT DM 02/06/18 [History Last Taken 02/06/18] lactose-reduced food with fiber 0.06 gram-1.5 kcal/mL oral liquid (Jevity 1.5 Victorino) 237 ml feeding tube .COMPLEX NUTRITION 10/16/22 [History Last Taken Unknown] ondansetron 8 mg disintegrating tablet 8 mg PO Q8H PRN nausea and vomiting 30 days #30 tabs 10/17/22 [Rx Last Taken Unknown] nystatin 100,000 unit/mL oral suspension 5 ml PO 4X/DAY MOUTH 10/24/22 [History Last Taken Unknown] omeprazole 10 mg capsule,delayed release See Rx Instructions feeding tube DAILY reflux 10/24/22 [History Last Taken Unknown] metoprolol tartrate 100 mg tablet 100 mg G-tube BID 30 days #60 tabs 11/28/22 [Rx Last Taken Unknown] amiodarone 200 mg tablet 200 mg feeding tube DAILY #30 tabs 01/21/23 [Rx Last Taken Unknown] apixaban 5 mg tablet (Eliquis) 5 mg feeding tube BID #60 tabs 01/21/23 [Rx Last Taken Unknown] rosuvastatin 20 mg tablet (Crestor) 20 mg feeding tube QHS cholesterol #1 TAB 01/21/23 [Rx Last Taken 05/17/15] sulfamethoxazole-trimethoprim 1 tab G-tube DAILY antibiotic #1 TAB 01/21/23 [Rx Last Taken Unknown] aspirin 81 mg tablet,delayed release (Adult Low Dose Aspirin) 81 mg PO DAILY 02/14/23 [History Last Taken Unknown] olanzapine 5 mg tablet 5 mg PO BID 02/14/23 [History Last Taken Unknown] tacrolimus 0.5 mg capsule, immediate-release (Prograf) 0.5 mg PO .COMPLEX 02/14/23 [History Last Taken Unknown] terazosin 5 mg capsule 5 mg PO QHS 02/14/23 [History Last Taken Unknown] Allergy/AdvReac Type Severity Reaction Status Date / Time diphenhydramine AdvReac Mild jittery/ Verified 02/14/23 05:32 [From Rodo] anxious Family History Mother Kidney disease Hypertension High cholesterol Diabetes Father Kidney disease Hypertension High cholesterol Diabetes Surgical History Amputation of foot Hx of kidney transplant Hx of surgical amputation of finger Renal transplant recipient Renal transplant recipient Social History household members: spouse, family and children Smoking Status: Former smoker how long ago did patient quit smoking: Quit~ 50 years prior smoked youth until quit 2 ppd. alcohol intake: former details: Drank heavily in youth, stopped ~ 50 years prior. substance use type: does not use what type of physical activity do you participate in: walking EXAM Physical Exam Const Vital Signs: 02/14/23 05:33 02/14/23 05:43 02/14/23 05:42 Temperature 98.6 F 98.6 F 98.6 F Temperature Source Temporal Temporal Temporal Pulse Rate 77 77 77 Respiratory Rate 24 H 28 H 28 H Respiratory Effort Respiratory Pattern Blood Pressure 114/86 H 131/60 H 131/60 H Blood Pressure Mean 95 83 83 Pulse Ox 96 95 96 Oxygen Delivery Method Bi-pap Bi-pap Bi-pap Fraction of Inspired Oxygen (FIO2) 80 80 80 02/14/23 05:49 02/14/23 05:40 02/14/23 06:15 Temperature Temperature Source Pulse Rate 78 70 Respiratory Rate 24 H 26 H Respiratory Effort Short of Breath Respiratory Pattern Tachypnea Tachypnea Blood Pressure Blood Pressure Mean Pulse Ox 96 94 Oxygen Delivery Method Room Air Fraction of Inspired Oxygen (FIO2) 100 80 02/14/23 06:32 02/14/23 06:42 Temperature 98.5 F Temperature Source Temporal Pulse Rate 75 75 Respiratory Rate 19 H 19 H Respiratory Effort Respiratory Pattern Blood Pressure 118/62 119/62 Blood Pressure Mean 80 81 Pulse Ox 97 96 Oxygen Delivery Method Bi-pap Bi-pap Fraction of Inspired Oxygen (FIO2) [facility] [place] Narrative Medical decision making narrative: HISTORY OF PRESENT ILLNESS: 72-year-old male here with acute onset of shortness of breath. Notes his last chemo treatment was 4 weeks ago. Denies any chest pain. Denies any fever or cough. Denies any lower extremity edema. Denies any bleeding diathesis. Notes compliance with all medication. Notes I just cannot breathe. He is accompanied by his provides majority of history. The patient denies recent surgery in the last 4 weeks or immobilization in the last 3 days, denies previous diagnosis of DVT or PE, hemoptysis, unilateral leg swelling . No estrogen use noted. Per the patient's he has home oxygen to use as needed and needed to use it today. REVIEW OF SYSTEMS: Pertinent positives: Shortness of breath Pertinent negatives: Chest pain, lower extremity edema PHYSICAL EXAM: Nursing triage notes reviewed, Vital signs reviewed Constitutional: please see mdm HENT: MMM Eyes: Pupils equal round and reactive to light, Extraocular muscles intact Neck: No stridor, no JVD, full neck ROM Lungs: Diminished throughout, no obvious rales or wheezes. Conversational dyspnea, increased work of breathing Heart: Regular rate and rhythm, No murmurs, No rubs and No gallops, 2+ distal pulses (radial, femoral, posterior tibial) in all extremities Abdomen: Soft, G-tube in place there is no surrounding erythema, there is no tenderness, rigidity, rebound or guarding, no obvious peritoneal signs, no palpable pulsatile abdominal masses, no auscultated abdominal bruit : No CVAT Extremities: No edema Neuro: No focal neurological deficits, cranial nerves II through XII intact, 5/5 strength in all extremities. Intact sensation to light touch in all extremities, 2+ reflexes bilateral patella tendons. Normal gait. No ataxia. Skin: No rash or lesions noted MEDICAL DECISION MAKING: Chief Complaint: Shortness of breath External records reviewed: Imaging studies reviewed, chest x-ray from 01/20/2023 shows bilateral pneumonia, no pneumothorax. Echocardiogram reviewed from October 2022, ejection fraction 70% Factors affecting care: Esophageal cancer on chemo, hyperlipidemia, history of kidney transplant, CAD, type 2 diabetes, hypertension status post with amputation secondary to diabetic foot ulcer Social determinants of health: Elderly, no drug use History obtained from others: EMS the patient's Consults: Internal medicine MDM Narrative: Patient was initially tachypneic, with increased work of breathing requiring rescue BiPAP. CODE STATUS discussion was undertaken at this time per the patient and he would not want to be intubated or resuscitated if he needed to be placed on life support Patient started on BiPAP at 12/6. Lungs were diffusely diminished. I considered the following differential diagnosis: Pneumonia, pleural effusion, COVID, flu, DKA, PE, arrhythmia, ACS, anemia, electrolyte disturbance ALL IMAGES (IF OBTAINED) HAVE BEEN PERSONALLY REVIEWED AND INTERPRETED BY MYSELF. EKG with normal sinus rhythm, left axis deviation, normal intervals, no STEMI CBC with leukocytosis suggestive of systemic inflammation, noted improved anemia, noted thrombocytopenia VBG shows no evidence of respiratory acidosis, bicarb is 29 not consistent with DKA BMP with hyponatremia, no anion gap to suggest endorgan hypoperfusion, no HO BNP mildly elevated indicative of myocyte stretch, transmural pressure. High-sensitivity troponin is negative, no evidence of myocardial ischemia Acetone is negative Chest x-ray read by myself shows a mixed picture from prior x-ray (01/20/2023). Shows worsening infiltrates left lower lobe however shows improved infiltrates in right upper lobe concerning for pneumonia given the patient's immunocompromise state with chemotherapy as well as tachycardia tacrolimus secondary to renal transplant COVID, flu is negative Lactate is wnl indicating no end-organ hypoperfusion and/or hypoxia. The synthesis of the patient's history, physical exam, labs, vitals are consistent with hypoxic respiratory failure likely secondary to pneumonia. He has elevated white blood cell count he has increased work of breathing requires BiPAP. He requires ICU admission. The patient and/or family, caregivers express understanding. The patient and/or family, caregivers agrees with the plan. Shared decision making: I will have a discussion with the patient and or visitors regarding risk/benefits of further testing or admission. They will be made aware of of the risk/benefits inherent in this decision they will be given the opportunity to voice understanding. Total critical care time today provided was at least 35 minutes. This excludes separately billable procedures. Critical care time (if documented) is secondary to the patient having high probability of clinically significant/life threatening deterioration in the patient's condition which required my urgent intervention. Impression: 1. Acute hypoxic respiratory failure 2. Pneumonia 3. History of esophageal cancer on chemotherapy 4. History of kidney transplant on tacrolimus 5. Hyponatremia 6. Anemia 7. Thrombocytopenia 8. Leukocytosis Dispo: Admit to ICU Lab Data Labs: Laboratory Results - last 24 hr 02/14/23 05:50 WBC 13.6 H RBC 3.33 L Hgb 8.7 L Hct 28.4 L MCV 85.3 MCH 26.1 L MCHC 30.6 L RDW Std Deviation 64.7 H RDW Coeff of Ayaka 20.9 H Plt Count 143 L MPV 10.0 Immature Gran % (Auto) 0.900 Neut % (Auto) 92.9 H Lymph % (Auto) 2.1 L Win[place] % (Auto) 4.0 Eos % (Auto) 0.0 Baso % (Auto) 0.1 Absolute Neuts (auto) 12.7 H Absolute Lymphs (auto) 0.28 L Nucleated RBC % 0 Differential Comment SCANNED Anisocytosis 1+ Sodium 125 L Potassium 4.4 Chloride 87 L Carbon Dioxide 32.0 Anion Gap 6 BUN 25 H Creatinine 0.86 Estim Creat Clear Calc 82.53 Est GFR (MDRD) Af Amer 113 Est GFR (MDRD) Non-Af 93 BUN/Creatinine Ratio 29.1 H Glucose 128 H Lactic Acid 0.8 Calcium 8.9 Troponin I High Sens 10 B-Natriuretic Peptide 234.7 H Acetone Level NEGATIVE ABG Data ABG results: ABG 02/14/23 06:06 Specimen Type KUSHAL Sample Site Not entered O2 % 80.0 VBG pH 7.48 H VBG pO2 58 H VBG HCO3 29 H VBG Total CO2 30 VBG O2 Sat (Calc) 92 H VBG Base Excess 6 H POC Mix VBG pCO2 Pt Tmp 39.0 L Respiration Rate 12 O2 Delivery Device Not entered Discharge Plan Triage Chief Complaint: Shortness of Breath ED Provider: [place] Santa Dx/Rx/DC Orders Prescriptions: No Action prednisone 2.5 MG tablet 5 mg PO DAILY Patient Comments: STEROID insulin aspart U-100 [Novolog FlexPen U-100 Insulin] 100 UNITS/ML insulin pen See Protocol subcut CONT Protocol: 6. Sliding Scale Insulin Custom Condition: mg/dl range Dose/Route: Number of Units Instruction: using insulin pump Protocol Text: Custom Sliding Scale Rx Instructions: insulin pump metoprolol tartrate 100 mg Tablet 100 mg G-tube BID 30 Days Qty: 60 0RF aspirin [Adult Low Dose Aspirin] 81 mg tablet,delayed release (DR/EC) 81 mg PO DAILY olanzapine 5 mg tablet 5 mg PO BID Rx Instructions: FOR THREE DAYS AFTER EACH CHEMO tacrolimus [Prograf] 0.5 mg capsule 0.5 mg PO .COMPLEX Rx Instructions: 1mg in AM; 0.5 mg orally qhs; terazosin 5 mg capsule 5 mg PO QHS Jevity 1.5 Victorino 0.06 gram-1.5 kcal/mL liquid 237 ml feeding tube .COMPLEX Patient Comments: 60ML WATER FLUSH BEFORE AND AFTER EACH BOLUS Rx Instructions: 237 mL via feeding tube 0900,1200,1500,1800,2100; ondansetron 8 mg tablet,disintegrating 8 mg PO Q8H PRN (Reason: nausea and vomiting) 30 Days Qty: 30 0RF nystatin 100,000 unit/mL suspension 5 ml PO 4X/DAY Rx Instructions: swish and swallow omeprazole 10 mg capsule,delayed release(DR/EC) See Rx Instructions feeding tube DAILY Rx Instructions: 10ML via feeding tube daily; amiodarone 200 mg tablet 200 mg feeding tube DAILY Qty: 30 11RF rosuvastatin [Crestor] 20 MG tablet 20 mg feeding tube QHS Qty: 1 0RF Patient Comments: decrease cholesterol Eliquis 5 mg tablet 5 mg feeding tube BID Qty: 60 11RF sulfamethoxazole-trimethoprim 1 tab G-tube DAILY Qty: 1 0RF Rx Instructions: 1 tablet daily on m , thursday, thursday Primary Care Provider: Mikayla Lopez Referrals: Mikayla Lopez MD [Primary Care Provider] -
[2023-02-14 06:08] LABS: Absolute Lymphocyte Count 0.28 X10^3/uL (0.83-4.51); Absolute Neutrophil Count 12.7 X10^3/uL (2.0-7.7); Basophil# 0.02 X10^3/uL; Basophil% 0.1 % (0-1); Hematocrit 28.4 % (40-54); Hemoglobin 8.7 g/dL (13.0-16.5); Lymphocyte # 0.28 X10^3/ul (0.83-4.51); Lymphocyte % 2.1 % (19-41); Mean Corp Hgb Conc 30.6 g/dL (32-36); Mean Corpuscular Hgb 26.1 pg (27.0-32.0); Mean Corpuscular Volume 85.3 fL (80-94); Monocyte# 0.54 X10^3/uL; NRBC Flagged by Analyzer 0 % (0-5); Neutrophil # 12.68 X10^3/uL (2.7-7.7); Neutrophil % 92.9 % (47-70); POSITIVE DIFFERENTIAL YES; POSITIVE MORPHOLOGY YES; Platelet Count 143 K/mm3 (150-450); RBC Distribution Width CV 20.9 % (11.6-14.6); RBC Distribution Width SD 64.7 fl (35.1-43.9); Red Blood Count 3.33 M/mm3 (4.6-6.2); White Blood Count 13.6 K/mm3 (4.4-11.0)
[2023-02-14 06:10] LABS: Blood Gas Specimen Type VEN; O2 Delivery Device Not entered; RR 12; SITE Not entered; VBG BASE EXCESS 6 mmol/L (-1.0-3.5); VBG Bicarbonate 29 mmol/L (22-26); VBG PO2 58 mmHg (25-40); VBG SO2 92 % (50-70); VBG TCO2 30 mmol/L (23-33); VBG pH 7.48 (7.32-7.42)
[2023-02-14 06:15] LABS: Differential Indicated SCAN CRITERIA MET
--- NOTE | 2023-02-14 06:15 | RAD_ITS ---
STUDY: X-RAY CHEST REASON FOR EXAM: Male, 72 years old patient with shortness of breath and hypoxia. TECHNIQUE: Single AP portable view of the chest. COMPARISON: Chest radiograph dated January 20, 2023. FINDINGS: There is a left-sided Mediport catheter present in the internal jugular vein with the tip of the catheter in the superior vena cava. The lungs are expanded. There is bilateral heterogeneous air space consolidation in both lungs more severe than was apparent on the previous study. There may also be pulmonary nodules. There are small pleural effusions. There is mild cardiac enlargement. Normal mediastinum and wolf. Normal visualized pulmonary arteries. There is atherosclerotic calcification of the aortic arch with tortuosity. There is demineralization of the osseous structures. There appear to be multiple right-sided rib fractures. There is no demonstrated abnormality of the visualized soft tissue structures of the upper abdomen. RAD/Chest 1 View (Portable) IMPRESSION: Increasing bilateral multifocal airspace disease possibly representing multifocal pneumonia. Electronically Signed: Halima Zuleta MD at 7:44 EST ,
[2023-02-14 06:25] LABS: Anion Gap 6 (5-15); BUN 25 mg/dL (7-18); BUN/Creat Ratio 29.1 RATIO (10-20); Calcium,Total 8.9 mg/dL (8.5-10.1); Chloride 87 mmol/L (98-107); Creatinine, Serum 0.86 mg/dL (0.70-1.30); EST Glomerular Filtration Rate 93 mL/min (>60); Est Glom Filt Rate - Afr Amer 113 mL/min (>60); Estimated Creatinine Clearance 82.53 ml/min; Glucose 128 mg/dL (74-106); Potassium 4.4 mmol/L (3.5-5.1); Sodium Level 125 mmol/L (136-145); Troponin-I HS 10 pg/mL (3.0-78.0)
[2023-02-14] MEDS: 0.9% Normal Saline (1000mL) 1,000 ML 999 ML IV (06:34)
[2023-02-14 06:43] LABS: BNP,B-Type NATRIURETIC PEPTIDE 234.7 pg/mL (0-100)
[2023-02-14 06:46] LABS: Anisocytosis 1+; Differential Comment SCANNED
[2023-02-14 07:03] LABS: Lactic Acid 0.8 mmol/L (0.4-1.9)
[2023-02-14] MEDS: Ampicillin/Sulbactam 3 GM in 0.9% Normal Saline (100mL MB+) 100 ML IV (07:05)
--- NOTE | 2023-02-14 07:17 | HP.PCM_ITS ---
HPI - General General Date of Admission: 02/14/23 Date of Service: 02/14/23 Chief Complaint: shortness of breath HPI Narrative MAHAD SULLIVAN, is a 72 M with a PMH as outlined who presents via the ED on 02/14/2023 with a complaint of shortness of breath. He started feeling short of breath around midnight, and was brought in to the ED. HE is on chemotherapy for esophageal cancer and also on tacrolimus for ESRD. said he woke up around midnight feeling very short of breath. He denied any coughing or chest pain, palpitations, dizziness, nausea vomiting or any other symptoms. Review of systems otherwise negative. He had previously been on Lasix for heart failure but states he was told by his oncologist to stop taking the Lasix. Vitals in the ED were BP of 119/62, AK of 75, RR of 19 and temp of 98.5F. He was saturating in the 70s on room air. He was initially tachypneic, breathing as fast as 28. HE was immediately placed on BIPAP. CBC showed Hb of 8.7, wbc of 13.6, platelets of 143. Chemistry showed sodium of 125, potassium of 4.4 and Cr of 0.8. Bicarb was 32. BNP was 234.7. Flu and covid tests were negative. CXR official read was pending, but per my read, showed bilateral infiltrates. He is being admitted to be managed for acute hypoxic respiratory failure due to bilateral pneumonia and probable flash pulmonary edema. Patient indicated he wanted to be DNRCCA no intubation so he is being admitted to the PCU. FORMERLY [facility] Medical History (Reviewed 02/11/23 @ 08:00 by Angela Vasquez MACHINE PACKAGING TECHNICIAN, MACHINE PACKAGING TECHNICIAN-C) Ambulates with cane Amputation finger Amputation of toe Anemia of chronic disease Atrial fibrillation Chemotherapy adverse reaction Diabetes mellitus, type II Dialysis AV fistula malfunction Esophageal cancer Esophageal cancer Gastric reflux History of steroid therapy HLD (hyperlipidemia) Hyperglycemia due to diabetes mellitus Hypertension Hypertension Hyponatremia Insulin dependent diabetes mellitus NSTEMI (non-ST elevated myocardial infarction) Wears dentures Wears glasses Wears hearing aid Home Medications prednisone 2.5 mg tablet 5 mg PO DAILY steriod 05/11/15 [History Last Taken 02/13/23] insulin aspart U-100 100 unit/mL (3 mL) subcutaneous pen (Novolog FlexPen U-100 Insulin aspart) See Protocol subcut CONT DM 02/06/18 [History Last Taken 02/06/18] lactose-reduced food with fiber 0.06 gram-1.5 kcal/mL oral liquid (Jevity 1.5 Victorino) 237 ml feeding tube .COMPLEX NUTRITION 10/16/22 [History Last Taken 3 21:35] ondansetron 8 mg disintegrating tablet 8 mg PO Q8H PRN nausea and vomiting 30 days #30 tabs 10/17/22 [Rx Last Taken Unknown] nystatin 100,000 unit/mL oral suspension 5 ml PO 4X/DAY MOUTH 10/24/22 [History Last Taken 02/13/23] omeprazole 10 mg capsule,delayed release See Rx Instructions feeding tube DAILY reflux 10/24/22 [History Last Taken 02/13/23] metoprolol tartrate 100 mg tablet 100 mg G-tube BID 30 days #60 tabs 11/28/22 [Rx Last Taken 02/13/23] amiodarone 200 mg tablet 200 mg feeding tube DAILY heart #30 tabs 01/21/23 [Rx Last Taken 02/13/23] apixaban 5 mg tablet (Eliquis) 5 mg feeding tube BID #60 tabs 01/21/23 [Rx Last Taken 02/13/23] rosuvastatin 20 mg tablet (Crestor) 20 mg feeding tube QHS cholesterol #1 TAB 01/21/23 [Rx Last Taken 02/13/23] sulfamethoxazole-trimethoprim 1 tab G-tube DAILY antibiotic #1 TAB 01/21/23 [Rx Last Taken 02/13/23] aspirin 81 mg tablet,delayed release (Adult Low Dose Aspirin) 81 mg PO DAILY health maintenance 02/14/23 [History Last Taken 02/13/23] olanzapine 5 mg tablet 5 mg PO BID after chemo 02/14/23 [History Last Taken 02/13/23] tacrolimus 0.5 mg capsule, immediate-release (Prograf) 0.5 mg PO .COMPLEX organ rejection 02/14/23 [History Last Taken 02/13/23] terazosin 5 mg capsule 5 mg PO QHS BP 02/14/23 [History Last Taken 02/13/23] Allergy/AdvReac Type Severity Reaction Status Date / Time diphenhydramine AdvReac Mild jittery/ Verified 02/14/23 05:32 [From [place]] anxious Family History (Reviewed 02/11/23 @ 08:00 by Angela Vasquez MACHINE PACKAGING TECHNICIAN, MACHINE PACKAGING TECHNICIAN-C) Mother Kidney disease Hypertension High cholesterol Diabetes Father Kidney disease Hypertension High cholesterol Diabetes Surgical History (Reviewed 02/11/23 @ 08:00 by Angela Vasquez MACHINE PACKAGING TECHNICIAN, MACHINE PACKAGING TECHNICIAN-C) Amputation of foot Hx of kidney transplant Hx of surgical amputation of finger Renal transplant recipient Renal transplant recipient Social History (Reviewed 02/11/23 @ 08:00 by Angela Vasquez MACHINE PACKAGING TECHNICIAN, MACHINE PACKAGING TECHNICIAN-C) household members: spouse, family and children Smoking Status: Former smoker how long ago did patient quit smoking: Quit~ 50 years prior smoked youth until quit 2 ppd. alcohol intake: former details: Drank heavily in youth, stopped ~ 50 years prior. substance use type: does not use what type of physical activity do you participate in: walking ROS Constitutional Constitutional: Reports fatigue, malaise and weakness; Denies anorexia, change i n weight, chills or fever(s) Eyes Eyes: Denies change in vision ENT HEENT: Denies dysphagia or hearing loss Cardiovascular Cardiovascular: Reports orthopnea; Denies chest pain or paroxysmal nocturnal dyspnea Respiratory/Chest Respiratory/Chest: Reports shortness of breath at rest, shortness of breath with exertion and wheezing; Denies cough Gastrointestinal Gastrointestinal: Denies abdominal pain, diarrhea, nausea or vomiting Genitourinary Genitourinary: Denies dysuria Musculoskeletal Musculoskeletal: Denies back pain, muscle weakness or neck pain Neurologic Neurologic: Denies dizziness, focal weakness, headache(s), lack of coordination, numbness or seizures Psychiatric Psychiatric: Denies anxiety or depression Vital Signs Vital Signs Vital Signs: 02/14/23 05:33 02/14/23 05:43 02/14/23 05:42 Temperature 98.6 F 98.6 F 98.6 F Temperature Source Temporal Temporal Temporal Pulse Rate 77 77 77 Respiratory Rate 24 H 28 H 28 H Respiratory Effort Respiratory Pattern Blood Pressure 114/86 H 131/60 H 131/60 H Blood Pressure Mean 95 83 83 Pulse Ox 96 95 96 Oxygen Delivery Method Bi-pap Bi-pap Bi-pap Fraction of Inspired Oxygen (FIO2) 80 80 80 02/14/23 05:49 02/14/23 05:40 02/14/23 06:15 Temperature Temperature Source Pulse Rate 78 70 Respiratory Rate 24 H 26 H Respiratory Effort Short of Breath Respiratory Pattern Tachypnea Tachypnea Blood Pressure Blood Pressure Mean Pulse Ox 96 94 Oxygen Delivery Method Room Air Fraction of Inspired Oxygen (FIO2) 100 80 02/14/23 06:32 02/14/23 06:42 Temperature 98.5 F Temperature Source Temporal Pulse Rate 75 75 Respiratory Rate 19 H 19 H Respiratory Effort Respiratory Pattern Blood Pressure 118/62 119/62 Blood Pressure Mean 80 81 Pulse Ox 97 96 Oxygen Delivery Method Bi-pap Bi-pap Fraction of Inspired Oxygen (FIO2) Weight Weight: 207 lb 3.752 oz Body Mass Index (BMI) 29.7 Physical Exam Const alert and oriented x3 Constitutional Narrative: frail and weak. General Appearance: cooperative HEENT normocephalic, head/scalp atraumatic, moist oral mucous membranes and oropharynx normal Eyes PERRL and EOMs intact bilaterally Neck no lymphadenopathy and supple Lymph Lymphatic: no lymphadenopathy noted and no lymphedema noted Resp Resp Narrative: Moderately diminished breath sounds bibasilarly. No wheezes. Has bilateral crackles. On BiPAP tachypneic Effort and Inspection: tachypneic, respiratory distress, labored and uses accessory muscles Cardio regular rate, regular rhythm, S1 normal heart sound, S2 normal heart sound and no murmurs GI normal to inspection, nondistended, normoactive bowel sounds, soft to palpation, non-tender and non-distended Extremity normal capillary refill, no clubbing, cyanosis or edema and no calf tenderness General Extremity: no tenderness to palpation of joints or extremities Skin General Skin Exam: no breakdown Neuro CN's II-XII intact bilaterally, no focal motor deficits, no sensory deficits noted and deep tendon reflexes 2+ bilaterally Motor Exam: general weakness Psych cooperative Attitude: agitated Results Lab / Micro Data 02/14/23 05:50 02/14/23 05:50 Labs: Laboratory Results - last 24 hr 02/14/23 05:50: WBC 13.6 H, RBC 3.33 L, Hgb 8.7 L, Hct 28.4 L, MCV 85.3, MCH 26.1 L, MCHC 30.6 L, RDW Std Deviation 64.7 H, RDW Coeff of Ayaka 20.9 H, Plt Count 143 L, MPV 10.0, Immature Gran % (Auto) 0.900, Neut % (Auto) 92.9 H, Lymph % (Auto) 2.1 L, [place] % (Auto) 4.0, Eos % (Auto) 0.0, Baso % (Auto) 0.1, Absolute Neuts (auto) 12.7 H, Absolute Lymphs (auto) 0.28 L, Nucleated RBC % 0, Differential Comment SCANNED, Anisocytosis 1+, Sodium 125 L, Potassium 4.4, Chloride 87 L, Carbon Dioxide 32.0, Anion Gap 6, BUN 25 H, Creatinine 0.86, Estim Creat Clear Calc 82.53, Est GFR (MDRD) Af Amer 113, Est GFR (MDRD) Non-Af 93, BUN/Creatinine Ratio 29.1 H, Glucose 128 H, Lactic Acid 0.8, Calcium 8.9, Troponin I High Sens 10, B-Natriuretic Peptide 234.7 H, Acetone Level NEGATIVE Micro: Microbiology 02/14/23 06:13 Nasal Secretion SARS-CoV-2 & FLU Antigen (Rapid) - Final ABG Data ABG results: ABG 02/14/23 06:06 Specimen Type KUSHAL Sample Site Not entered O2 % 80.0 VBG pH 7.48 H VBG pO2 58 H VBG HCO3 29 H VBG Total CO2 30 VBG O2 Sat (Calc) 92 H VBG Base Excess 6 H POC Mix VBG pCO2 Pt Tmp 39.0 L Respiration Rate 12 O2 Delivery Device Not entered Assessment & Plan Assessment/Plan (1) Acute hypoxic respiratory failure: PLAN: Plan #Acute hypoxic respiratory failure due to bilateral pneumonia and probable flash pulmonary edema * Patient has a history of esophageal cancer currently on chemotherapy. * Got very short of breath abruptly during the night. Patient has been on Lasix for heart failure but says he was told to stop taking it by his oncologist a few weeks ago. He has not been taking the Lasix since then. * Chest x-ray showed bilateral pneumonia but there is also concern for pulmonary edema. * Will diurese with IV Lasix 40 mg twice daily. Started on broad-spectrum antibiotics namely IV vancomycin and Zosyn in light of patient being on chemotherapy and so therefore immunosuppressed. * Breathing treatments with bronchodilators. Blood cultures and sputum cultures ordered. * Pulmonology consulted. * titrate oxygen to maintain sats >90% * #Heart failure preserved ejection fraction with flash pulmonary edema * BNP is only minimally elevated in the 200s. However there is concern for flash pulmonary edema as he was on Lasix and recently discontinued it. * Being diuresed with IV Lasix. * 2D echo done in October 2022 showed EF of 70% with moderately enlarged left atrium and mild concentric left ventricular hypertrophy. * # Esophageal cancer * Currently on chemotherapy. Currently n.p.o. and has a PEG tube in place. * Follow-up with oncology on outpatient basis. * #Type 2 diabetes mellitus with neuropathy: On insulin pump. Will continue as he is on tube feeds via the PEG tube. Accu-Cheks every 6 hourly. Insulin sliding scale. #History of A-fib: On amiodarone. On Eliquis. Also on metoprolol. #Depression: On olanzapine #Hyperlipidemia: On statin #ESRD: Has had a kidney transplant. Currently not on dialysis. On Bactrim and tacrolimus. DVT prophylaxis: Already on Eliquis CODE STATUS: DNR CCA * Patient counseled extensively about different types of CODE STATUS including full code, DNR CCA and DNR CCA. Patient was adamant he did not want intubation and did not want CPR. Family was present and also expressed understanding of this. Patient elects to be DNRCCA No intubation. * Total [id number] time 17 minutes * Total time spent on evaluation and management of patient, reviewing chart and specialist notes, discussing plan with patient and his , discussion with nursing and ancillary staff as well as documentation: 78 mins Charges/Coding Visit Charges Inpatient E&M: 12137 Init Hosp L3 Procedures Hospitalists Procedures: 28138 Advncd Care Plan 30 Min
--- NOTE | 2023-02-14 07:23 | NURSING ---
DR SUKUMAR ALVARADO
--- NOTE | 2023-02-14 07:26 | NURSING ---
PCU KORAM PNEUMONIS
[2023-02-14] MEDS: 0.9% Saline Lock 10 ML Syringe IV ×2 (11:23→17:17)
[2023-02-14] MEDS: Tacrolimus 0.5 MG Capsule 1 MG GT (11:47)
[2023-02-14] MEDS: APIXABAN 5 MG TABLET GT ×2 (11:47→21:44)
[2023-02-14] MEDS: Metoprolol Tartrate 100 MG Tablet GT ×2 (11:48→21:44)
[2023-02-14] MEDS: NYSTATIN 500,000 UNIT/5 ML UDC 500000 UNIT PO ×4 (11:49→21:45)
[2023-02-14] MEDS: Jevity 1.5. 1,000 ML Bottle 237 ML GT ×4 (12:02→21:44)
[2023-02-14] MEDS: LANSOPRAZOLE 15 MG CAPSULE.DR GT (12:15)
[2023-02-14] MEDS: Azithromycin 500 MG in Dextrose 5%-Water (250mL Bag) 250 ML 250 MG IV (12:52)
[2023-02-14] MEDS: Vancomycin HCl 2,000 MG in 0.9% Normal Saline (500mL Bag) 500 ML 250 MG IV (13:03)
--- NOTE | 2023-02-14 13:36 | PCM.RX.CS ---
Consult Antibiotic Management Pharmacy has been consulted to manage selected antiobiotic: Vancomycin Type of Intervention Type of Consult: New start Suspected Infection Suspected Infection: Pneumonia Labs Labs: Sodium 125 mmol/L (136-145) L 02/14/23 05:50 Potassium 4.4 mmol/L (3.5-5.1) 02/14/23 05:50 Chloride 87 mmol/L (98-107) L 02/14/23 05:50 Carbon Dioxide 32.0 mmol/L (21.0-32.0) 02/14/23 05:50 Anion Gap 6 (5-15) 02/14/23 05:50 BUN 25 mg/dL (7-18) H 02/14/23 05:50 Creatinine 0.86 mg/dL (0.70-1.30) 02/14/23 05:50 Est GFR (MDRD) Af Amer 113 mL/min (>60) 02/14/23 05:50 Est GFR (MDRD) Non-Af 93 mL/min (>60) 02/14/23 05:50 BUN/Creatinine Ratio 29.1 RATIO (10-20) H 02/14/23 05:50 Glucose 128 mg/dL (74-106) H 02/14/23 05:50 Microbiology Microbiology: Microbiology 02/14/23 12:53 Urine, Clean Catch Legionella Antigen - Final 02/14/23 12:53 Urine, Clean Catch Streptococcus pneumoniae Antigen (M - Final 02/14/23 06:13 Nasal Secretion SARS-CoV-2 & FLU Antigen (Rapid) - Final Pharmacy Plan for Drug Dosing Pharmacy Plan for Drug Dosing: NEW START IV VANCOMYCIN Consulting Physician: SUKUMAR Indication: PNEUMONIA Goal Trough: 15-20 MG/DL SrCr: 0.86 MG/DL (02/14) CrCl: 82 ML/MIN Comments: 2000MG LOADING DOSE GIVEN 02/14 @ 1303 Vancomycin Dose: WILL START 1500MG Q12 AND GET A TROUGH PRIOR TO 4TH TOTAL DOSE PER POLICY Pending Level: 02/16/23 @ 0030 Pharmacy Service will continue to monitor and adjust dosing as required.
--- NOTE | 2023-02-14 13:51 | CON.PCM.CC_ITS ---
Assessment & Plan Assessment/Plan (1) Hypoxia: PLAN: Plan Assessment Acute on chronic hypoxic respiratory failure Abnormal chest imaging concerning for atypical infection versus metastatic lung disease Acute hyponatremia Esophageal cancer Dysphagia status post PEG tube placement Diabetic nephropathy status post kidney transplant on chronic immunosuppression A-fib on Eliquis Plan * Patient had similar presentation around a month ago and had a chest CT scan which showed bilateral pulmonary nodules with pleural effusion. He was treated with antibiotics for around 10 days however his chest x-ray today appears to be worsening * There is definitely a component of volume overload however patient's bilateral pulmonary nodules are concerning given the patient's immunocompromise state and underlying malignancy * Differential includes atypical infection including fungal, metastatic lung disease or amiodarone lung toxicity(he was started on amio in Oct 2022). He has no new acute exposure, no elevated absolute eosinophil count but has been febrile up to 101.4F * Pt Has been on Bactrim prophylaxis. * Will obtain sputum cultures, histo urine antigen and antibody, Fungitell, sputum AFB stain and crypto ag * Recommend ID consult * add azithromycin for atypical coverage. Cont vanc and zosyn * Pt may require bronchoscopy for BAL once stable * Slow correction of hyponatremia per medicine team * Code status DNR/DNI HPI Consult Data Date of Consult: 02/14/23 HPI Narrative Reason for Consultation: Abnormal chest imaging HPI Narrative: MAHAD ZULETA, is a 72 M male with past medical history of esophageal cancer diagnosed in April 2022, diabetes, history of kidney disease status post kidney transplant, chronic hypoxic respiratory failure on 2 L nasal cannula at home, A- fib and dysphagia status post PEG tube placement secondary to esophageal stricture as result of esophageal cancer. Patient presented with worsening shortness of breath and cough requiring to be on continuous BiPAP. Upon evaluation patient has felt better and was on 6 L nasal cannula. Patient is accompanied by his daughter and who have assisted the patient with history. Patient has been receiving chemoradiation for his esophageal cancer. Reports that his most recent chemo was around 4 weeks ago and he was scheduled to receive another bout of chemo however he was told he could not receive his dose due to fever. Patient started feeling unwell and short of breath around a day ago. He was also admitted to the hospital last month with bilateral infiltrate and transudative pleural effusion. He was treated with ant ibiotics. Repeat chest x-ray on his admission today shows worsening bilateral pulmonary nodules. Patient reports that he is scheduled for an upcoming PET scan. 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 He denies exposure to farm animals pets or birds. He is on Prograf and chronic prednisone for his lung transplant. He is also on Bactrim. According to family patient was told that his esophageal cancer is localized and has not metastasized. His family also tells me that the patient is usually on Bumex however it was held per the order of his oncologist due to hyponatremia. FORMERLY [facility] Medical History Ambulates with cane Amputation finger Amputation of toe Anemia of chronic disease Atrial fibrillation Chemotherapy adverse reaction Diabetes mellitus, type II Dialysis AV fistula malfunction Esophageal cancer Esophageal cancer Gastric reflux History of steroid therapy HLD (hyperlipidemia) Hyperglycemia due to diabetes mellitus Hypertension Hypertension Hyponatremia Insulin dependent diabetes mellitus NSTEMI (non-ST elevated myocardial infarction) Wears dentures Wears glasses Wears hearing aid Home Medications prednisone 2.5 mg tablet 5 mg PO DAILY steriod 05/11/15 [History Last Taken 02/13/23] insulin aspart U-100 100 unit/mL (3 mL) subcutaneous pen (Novolog FlexPen U-100 Insulin aspart) See Protocol subcut CONT DM 02/06/18 [History Last Taken 02/06/18] lactose-reduced food with fiber 0.06 gram-1.5 kcal/mL oral liquid (Jevity 1.5 Victorino) 237 ml feeding tube .COMPLEX NUTRITION 10/16/22 [History Last Taken 02/13/23 21:35] ondansetron 8 mg disintegrating tablet 8 mg PO Q8H PRN nausea and vomiting 30 days #30 tabs 10/17/22 [Rx Last Taken Unknown] nystatin 100,000 unit/mL oral suspension 5 ml PO 4X/DAY MOUTH 10/24/22 [History Last Taken 02/13/23] omeprazole 10 mg capsule,delayed release See Rx Instructions feeding tube DAILY reflux 10/24/22 [History Last Taken 02/13/23] metoprolol tartrate 100 mg tablet 100 mg G-tube BID 30 days #60 tabs 11/28/22 [Rx Last Taken 02/13/23] amiodarone 200 mg tablet 200 mg feeding tube DAILY heart #30 tabs 01/21/23 [Rx Last Taken 02/13/23] apixaban 5 mg tablet (Eliquis) 5 mg feeding tube BID #60 tabs 01/21/23 [Rx Last Taken 02/13/23] rosuvastatin 20 mg tablet (Crestor) 20 mg feeding tube QHS cholesterol #1 TAB 01/21/23 [Rx Last Taken 02/13/23] sulfamethoxazole-trimethoprim 1 tab G-tube DAILY antibiotic #1 TAB 01/21/23 [Rx Last Taken 02/13/23] aspirin 81 mg tablet,delayed release (Adult Low Dose Aspirin) 81 mg PO DAILY health maintenance 02/14/23 [History Last Taken 02/13/23] olanzapine 5 mg tablet 5 mg PO BID after chemo 02/14/23 [History Last Taken 02/13/23] tacrolimus 0.5 mg capsule, immediate-release (Prograf) 0.5 mg PO .COMPLEX organ rejection 02/14/23 [History Last Taken 02/13/23] terazosin 5 mg capsule 5 mg PO QHS BP 02/14/23 [History Last Taken 02/13/23] Allergy/AdvReac Type Severity Reaction Status Date / Time diphenhydramine AdvReac Mild jittery/ Verified 02/14/23 05:32 [From Benadryl] anxious Family History Mother Kidney disease Hypertension High cholesterol Diabetes Father Kidney disease Hypertension High cholesterol Diabetes Surgical History Amputation of foot Hx of kidney transplant Hx of surgical amputation of finger Renal transplant recipient Renal transplant recipient Social History household members: spouse, family and children Smoking Status: Former smoker how long ago did patient quit smoking: Quit~ 50 years prior smoked youth until quit 2 ppd. alcohol intake: former details: Drank heavily in youth, stopped ~ 50 years prior. substance use type: does not use what type of physical activity do you participate in: walking ROS ROS Narrative Pertinent positives and pertinent negatives as noted in HPI. All other systems were reviewed and are negative Physical Exam Narrative General alert oriented in no acute distress HEENT. Normocephalic atraumatic, pupils equal and reactive Respiratory reduced air entry bilaterally, crackles at the base Cardiac S1-S2, no murmurs GI abdomen soft and nontender MSK plus bilateral lower extremity edema, right transmetatarsal amputation Skin no rashes Neuro moves all extremities, no dysarthria, no facial droop Lab / Micro Data 02/14/23 05:50 02/14/23 05:50 Labs: Laboratory Results - last 24 hr 02/14/23 05:50: WBC 13.6 H, RBC 3.33 L, Hgb 8.7 L, Hct 28.4 L, MCV 85.3, MCH 26.1 L, MCHC 30.6 L, RDW Std Deviation 64.7 H, RDW Coeff of Ayaka 20.9 H, Plt Count 143 L, MPV 10.0, Immature Gran % (Auto) 0.900, Neut % (Auto) 92.9 H, Lymph % (Auto) 2.1 L, [place] % (Auto) 4.0, Eos % (Auto) 0.0, Baso % (Auto) 0.1, Absolute Neuts (auto) 12.7 H, Absolute Lymphs (auto) 0.28 L, Nucleated RBC % 0, Differential Comment SCANNED, Anisocytosis 1+, Sodium 125 L, Potassium 4.4, Chloride 87 L, Carbon Dioxide 32.0, Anion Gap 6, BUN 25 H, Creatinine 0.86, Estim Creat Clear Calc 82.53, Est GFR (MDRD) Af Amer 113, Est GFR (MDRD) Non-Af 93, BUN/Creatinine Ratio 29.1 H, Glucose 128 H, Lactic Acid 0.8, Calcium 8.9, Troponin I High Sens 10, B-Natriuretic Peptide 234.7 H, Acetone Level NEGATIVE Micro: Microbiology 02/14/23 12:53 Urine, Clean Catch Legionella Antigen - Final 02/14/23 12:53 Urine, Clean Catch Streptococcus pneumoniae Antigen (M - Final 02/14/23 06:13 Nasal Secretion SARS-CoV-2 & FLU Antigen (Rapid) - Final ABG Data ABG results: ABG 02/14/23 06:06 Specimen Type KUSHAL Sample Site Not entered O2 % 80.0 VBG pH 7.48 H VBG pO2 58 H VBG HCO3 29 H VBG Total CO2 30 VBG O2 Sat (Calc) 92 H VBG Base Excess 6 H POC Mix VBG pCO2 Pt Tmp 39.0 L Respiration Rate 12 O2 Delivery Device Not entered Imagaing Radiology Impression Chest X-Ray 02/14/23 06:15 IMPRESSION: Increasing bilateral multifocal airspace disease possibly representing multifocal pneumonia. Electronically Signed: Halima Zuleta MD at 7:44 EST , Charges/Coding Visit Charges Inpatient E&M: 44731 Init Hosp L3
[2023-02-14] MEDS: Piperacil/Tazobactam 3.375 GM in 0.9% Normal Saline (50mL MB+) 50 ML IV ×2 (15:51→21:44)
[2023-02-14] MEDS: Furosemide 40 MG/4 ML Vial IV (17:17)
[2023-02-14] MEDS: Tacrolimus 0.5 MG Capsule GT (21:44)
[2023-02-14] MEDS: Atorvastatin Calcium 40 MG Tablet GT (21:44)
[2023-02-14] MEDS: Doxazosin 4 MG Tablet GT (21:44)
[2023-02-15] VITALS (11 sets, daily range): BP systolic 100–151; BP diastolic 58–75; PULSE 69–93; RESP 12–18; TEMP 36.7–36.8; O2SAT 90–97
[2023-02-15] MEDS: Vancomycin HCl 1,500 MG in 0.9% Normal Saline (500mL Bag) 500 ML 250 MG IV ×2 (02:02→12:14)
[2023-02-15 04:56] LABS: Absolute Lymphocyte Count 0.46 X10^3/uL (0.83-4.51); Absolute Neutrophil Count 8.8 X10^3/uL (2.0-7.7); Basophil# 0.03 X10^3/uL; Basophil% 0.3 % (0-1); Hematocrit 27.1 % (40-54); Hemoglobin 8.2 g/dL (13.0-16.5); Lymphocyte # 0.46 X10^3/ul (0.83-4.51); Lymphocyte % 4.6 % (19-41); Mean Corp Hgb Conc 30.3 g/dL (32-36); Mean Corpuscular Hgb 26.4 pg (27.0-32.0); Mean Corpuscular Volume 87.1 fL (80-94); Mean Platelet Vol. 10.1 fl (6.2-12.0); NRBC Flagged by Analyzer 0 % (0-5); Neutrophil # 8.77 X10^3/uL (2.7-7.7); Neutrophil % 87.3 % (47-70); POSITIVE DIFFERENTIAL YES; POSITIVE MORPHOLOGY YES; Platelet Count 148 K/mm3 (150-450); RBC Distribution Width CV 21.2 % (11.6-14.6); RBC Distribution Width SD 67.7 fl (35.1-43.9); Red Blood Count 3.11 M/mm3 (4.6-6.2)
[2023-02-15 05:25] LABS: Anion Gap 6 (5-15); BUN 22 mg/dL (7-18); BUN/Creat Ratio 24.3 RATIO (10-20); Calcium,Total 8.9 mg/dL (8.5-10.1); Chloride 91 mmol/L (98-107); EST Glomerular Filtration Rate 88 mL/min (>60); Est Glom Filt Rate - Afr Amer 107 mL/min (>60); Estimated Creatinine Clearance 78.86 ml/min; Glucose 139 mg/dL (74-106); LDH 149 U/L (87-241); Potassium 3.8 mmol/L (3.5-5.1); Sodium Level 131 mmol/L (136-145)
[2023-02-15 05:32] LABS: Differential Indicated SCAN CRITERIA MET
[2023-02-15] MEDS: Piperacil/Tazobactam 3.375 GM in 0.9% Normal Saline (50mL MB+) 50 ML IV ×3 (06:19→20:55)
[2023-02-15 07:07] LABS: Anisocytosis 2+; Differential Comment SCANNED; Macrocytosis 1+; Microcytosis 1+; Polychromasia RARE
[2023-02-15] MEDS: predniSONE 5 MG Tablet GT (09:41)
[2023-02-15] MEDS: Furosemide 40 MG/4 ML Vial IV ×2 (09:42→20:53)
[2023-02-15] MEDS: APIXABAN 5 MG TABLET GT ×2 (09:42→20:56)
[2023-02-15] MEDS: Tacrolimus 0.5 MG Capsule 1 MG GT (09:42)
[2023-02-15] MEDS: Jevity 1.5. 1,000 ML Bottle 237 ML GT ×5 (09:43→20:56)
[2023-02-15] MEDS: NYSTATIN 500,000 UNIT/5 ML UDC 500000 UNIT PO ×4 (09:43→20:53)
[2023-02-15] MEDS: 0.9% Saline Lock 10 ML Syringe IV ×2 (09:43→18:32)
[2023-02-15] MEDS: Azithromycin 500 MG in Dextrose 5%-Water (250mL Bag) 250 ML 250 MG IV (10:37)
--- NOTE | 2023-02-15 12:24 | PN.CC_ITS ---
Assessment & Plan Assessment/Plan (1) Hypoxia: PLAN: Plan Assessment Acute on chronic hypoxic respiratory failure Abnormal chest imaging concerning for atypical infection versus metastatic lung disease Acute hyponatremia Esophageal cancer on chemo Dysphagia status post PEG tube placement Diabetic nephropathy status post kidney transplant on chronic immunosuppression A-fib on Eliquis Plan * Patient had similar presentation around a month ago and had a chest CT scan wh ich showed bilateral pulmonary nodules with pleural effusion. He was treated with antibiotics for around 10 days however his chest x-ray on admission appears to be worsening * There is definitely a component of volume overload however patient's bilateral pulmonary nodules are concerning given the patient's immunocompromised state and underlying malignancy * Differential includes atypical infection including fungal vs MAC, metastatic lung disease or amiodarone lung toxicity(he was started on amio in Oct 2022). He has no new acute exposure, no elevated absolute eosinophil count but has been febrile up to 101.4F * Pt Has been on Bactrim prophylaxis. * follow up sputum cultures, histo urine antigen and antibody, Fungitell, sputum AFB stain and crypto ag * Recommend ID consult * azithromycin for atypical coverage. Cont vanc and zosyn. MRSA swab pending * Pt may require bronchoscopy for BAL once stable * Slow correction of hyponatremia per medicine team * Code status DNR/DNI Subjective Subjective He slep wearing his bipap at night. He reports he feels slightly better. He is on 7L NC during the day. Family at bedside Objective Data Objective Data Vital Signs: Vital Signs Temp Pulse Resp BP Pulse Ox O2 Del Method O2 Flow Rate 36.7 C 78 18 100/61 96 High Flow 7 02/15/23 09:30 02/15/23 09:42 02/15/23 09:30 02/15/23 09:42 02/15/23 09:30 02/15/23 09:30 02/15/23 09:30 FiO2 35 02/15/23 07:30 Oxygen Flow Rate (L/min) 7 Oxygen Delivery Method High Flow Weight: 93.5 kg Body Mass Index (BMI) 29.5 Intake & Output: Intake and Output for Last 24 Hours 02/13/23 02/14/23 02/15/23 23:59 23:59 23:59 Intake Total 1893.45 / 1893.45 1200.0 / 1200.0 Balance 1893.45 / 1893.45 1200.0 / 1200.0 Lab / Micro Data 02/15/23 04:00 02/15/23 04:00 Labs: Laboratory Results - last 24 hr 02/15/23 04:00: WBC 10.0, RBC 3.11 L, Hgb 8.2 L, Hct 27.1 L, MCV 87.1, MCH 26.4 L, MCHC 30.3 L, RDW Std Deviation 67.7 H, RDW Coeff of Ayaka 21.2 H, Plt Count 148 L, MPV 10.1, Immature Gran % (Auto) 0.800, Neut % (Auto) 87.3 H, Lymph % (Auto) 4.6 L, [place] % (Auto) 7.0, Eos % (Auto) 0.0, Baso % (Auto) 0.3, Absolute Neuts (auto) 8.8 H, Absolute Lymphs (auto) 0.46 L, Nucleated RBC % 0, Differential Comment SCANNED, Polychromasia RARE, Anisocytosis 2+, Microcytosis 1+, Macrocytosis 1+, Sodium 131 L, Potassium 3.8, Chloride 91 L, Carbon Dioxide 34.0 H, Anion Gap 6, BUN 22 H, Creatinine 0.90, Estim Creat Clear Calc 78.86, Est GFR (MDRD) Af Amer 107, Est GFR (MDRD) Non-Af 88, BUN/Creatinine Ratio 24.3 H, Glucose 139 H, Calcium 8.9, Lactate Dehydrogenase 149 Micro: Microbiology 02/14/23 12:23 Sputum, Expectorated/Coughed Gram Stain - Final 02/14/23 12:23 Sputum, Expectorated/Coughed Respiratory Culture - Preliminary Appears to be normal respiratory edith. Further studies to follow. 02/14/23 12:53 Urine, Clean Catch Legionella Antigen - Final 02/14/23 12:53 Urine, Clean Catch Streptococcus pneumoniae Antigen (M - Final 02/14/23 06:13 Nasal Secretion SARS-CoV-2 & FLU Antigen (Rapid) - Final Physical Exam Narrative General alert oriented in no acute distress HEENT. Normocephalic atraumatic, pupils equal and reactive Respiratory reduced air entry bilaterally, crackles at the base Cardiac S1-S2, no murmurs GI abdomen soft and nontender MSK plus bilateral lower extremity edema, right transmetatarsal amputation Skin no rashes Neuro moves all extremities, no dysarthria, no facial droop Charges/Coding Visit Charges Inpatient E&M: 31591 Subs Hosp L2
--- NOTE | 2023-02-15 16:32 | PCM.PN.HOSP ---
Reason for Visit Reason for Visit: Diagnoses Acute respiratory failure with hypoxia (02/14/23) Hypoxemia (02/14/23) Subjective Subjective Patient was seen and examined today, he is currently on 7 L at rest, I talked briefly with his who was in the room at the time my examination. Pulmonary medicine recommended infectious disease consultation. Objective Data Objective Data Vital Signs: Vital Signs Temp Pulse Resp BP Pulse Ox O2 Del Method O2 Flow Rate 98.0 F 70 18 121/58 H 94 Bi-pap 10 02/15/23 16:00 02/15/23 16:00 02/15/23 16:00 02/15/23 16:00 02/15/23 16:00 02/15/23 16:00 02/15/23 15:30 FiO2 35 02/15/23 07:30 Oxygen Flow Rate (L/min) 10 Oxygen Delivery Method Bi-pap Weight: 93.5 kg Body Mass Index (BMI) 29.5 Intake & Output: Intake and Output for Last 24 Hours 02/13/23 02/14/23 02/15/23 23:59 23:59 23:59 Intake Total 1893.45 / 1893.45 1805.0 / 1805.0 Balance 1893.45 / 1893.45 1805.0 / 1805.0 Lab / Micro Data 02/15/23 04:00 02/15/23 04:00 Labs: Laboratory Results - last 24 hr 02/15/23 04:00: WBC 10.0, RBC 3.11 L, Hgb 8.2 L, Hct 27.1 L, MCV 87.1, MCH 26.4 L, MCHC 30.3 L, RDW Std Deviation 67.7 H, RDW Coeff of Ayaka 21.2 H, Plt Count 148 L, MPV 10.1, Immature Gran % (Auto) 0.800, Neut % (Auto) 87.3 H, Lymph % (Auto) 4.6 L, [place] % (Auto) 7.0, Eos % (Auto) 0.0, Baso % (Auto) 0.3, Absolute Neuts (auto) 8.8 H, Absolute Lymphs (auto) 0.46 L, Nucleated RBC % 0, Differential Comment SCANNED, Polychromasia RARE, Anisocytosis 2+, Microcytosis 1+, Macrocytosis 1+, Sodium 131 L, Potassium 3.8, Chloride 91 L, Carbon Dioxide 34.0 H, Anion Gap 6, BUN 22 H, Creatinine 0.90, Estim Creat Clear Calc 78.86, Est GFR (MDRD) Af Amer 107, Est GFR (MDRD) Non-Af 88, BUN/Creatinine Ratio 24.3 H, Glucose 139 H, Calcium 8.9, Lactate Dehydrogenase 149 02/15/23 10:05: MRSA (PCR) Cancelled Micro: Microbiology 02/14/23 12:23 Sputum, Expectorated/Coughed Gram Stain - Final 02/14/23 12:23 Sputum, Expectorated/Coughed Respiratory Culture - Preliminary Appears to be normal respiratory edith. Further studies to follow. 02/14/23 12:53 Urine, Clean Catch Legionella Antigen - Final 02/14/23 12:53 Urine, Clean Catch Streptococcus pneumoniae Antigen (M - Final 02/14/23 06:13 Nasal Secretion SARS-CoV-2 & FLU Antigen (Rapid) - Final Physical Exam Const alert, oriented x3 and no apparent distress General Appearance: cooperative, well kempt and well developed Orientation / Consciousness: awake, oriented to person, oriented to place and oriented to time HEENT normocephalic, head/scalp atraumatic and moist oral mucous membranes Eyes PERRL, EOMs intact bilaterally and conjunctivae normal Neck supple, no JVD, thyroid normal and no carotid bruits General: trachea midline Resp normal respiratory effort Resp Narrative: Breath sounds are diminished bilaterally Auscultation: Negative for rales, rhonchi or wheezes Cardio regular rate, regular rhythm, S1 normal heart sound, S2 normal heart sound, no murmurs, no rub and no gallops GI normal to inspection, nondistended, normoactive bowel sounds, soft to palpation, non-tender and non-distended Extremity no clubbing, cyanosis or edema Skin no rashes or lesions noted General Skin Exam: no breakdown Neuro oriented x3, CN's II-XII intact bilaterally, moves all extremities, no focal motor deficits and no sensory deficits noted Sensorium / Orientation: awake and alert Speech: speech normal Psych affect normal Assessment & Plan Assessment/Plan (1) Hypoxia: PLAN: Plan 1. Acute hypoxic respiratory failure-secondary to suspected pneumonia and/or congestive heart failure, metastatic spread of the patient's esophageal cancer is another possibility. Patient is currently on Zithromax, vancomycin, Bactrim, and Zosyn. I will write for infectious diseases see the patient tomorrow #2 suspected acute on chronic congestive heart failure with preserved ejection fraction-patient is on IV Lasix at this time, I have decided to increase his Lasix to every 8 hours, labs will be monitored, I talked to pulmonary medicine today and they felt that he could have an atypical pneumonia but they were okay with increasing the patient's Lasix. #3 esophageal cancer-overall poor prognosis, complicates care, medical course, recovery, and prognosis #4 hyponatremia-this will need to be monitored due to increase in his Lasix. Total clinical time spent by myself addressing the patient's medical issues, reviewing all of his data, and collaborating with patient's care team: 25-minute Charges/Coding Visit Charges Inpatient E&M: 54393 Subs Hosp L1
[2023-02-15] MEDS: Metoprolol Tartrate 100 MG Tablet GT (20:53)
[2023-02-15] MEDS: Atorvastatin Calcium 40 MG Tablet GT (20:53)
[2023-02-15] MEDS: Tacrolimus 0.5 MG Capsule GT (20:53)
[2023-02-15] MEDS: Doxazosin 4 MG Tablet GT (20:54)
[2023-02-15] MEDS: busPIRone 5 MG Tablet PO (20:54)
[2023-02-15] MEDS: Acetaminophen 325 MG Tablet 650 MG PO (20:54)
[2023-02-16] VITALS (11 sets, daily range): BP systolic 93–149; BP diastolic 59–74; PULSE 73–86; RESP 16–18; TEMP 36.5–36.8; O2SAT 6–98
[2023-02-16 01:16] LABS: Vancomycin, Trough Level 24.9 ug/mL (5.0-15.0)
--- NOTE | 2023-02-16 01:20 | PCM.RX.CS ---
Consult Antibiotic Management Pharmacy has been consulted to manage selected antiobiotic: Vancomycin Type of Intervention Type of Consult: Follow-up Labs Labs: Sodium 131 mmol/L (136-145) L 02/15/23 04:00 Potassium 3.8 mmol/L (3.5-5.1) 02/15/23 04:00 Chloride 91 mmol/L (98-107) L 02/15/23 04:00 Carbon Dioxide 34.0 mmol/L (21.0-32.0) H 02/15/23 04:00 Anion Gap 6 (5-15) 02/15/23 04:00 BUN 22 mg/dL (7-18) H 02/15/23 04:00 Creatinine 0.90 mg/dL (0.70-1.30) 02/15/23 04:00 Est GFR (MDRD) Af Amer 107 mL/min (>60) 02/15/23 04:00 Est GFR (MDRD) Non-Af 88 mL/min (>60) 02/15/23 04:00 BUN/Creatinine Ratio 24.3 RATIO (10-20) H 02/15/23 04:00 Glucose 139 mg/dL (74-106) H 02/15/23 04:00 Vancomycin Trough 24.9 ug/mL (5.0-15.0) H 02/16/23 00:30 Microbiology Microbiology: Microbiology 02/14/23 12:23 Sputum, Expectorated/Coughed Gram Stain - Final 02/14/23 12:23 Sputum, Expectorated/Coughed Respiratory Culture - Preliminary Appears to be normal respiratory edith. Further studies to follow. 02/14/23 12:53 Urine, Clean Catch Legionella Antigen - Final 02/14/23 12:53 Urine, Clean Catch Streptococcus pneumoniae Antigen (M - Final 02/14/23 06:13 Nasal Secretion SARS-CoV-2 & FLU Antigen (Rapid) - Final Goal Trough Goal Trough: 15-20 mcg/mL Pharmacy Plan for Drug Dosing Pharmacy Plan for Drug Dosing: Pharmacy Service will continue to monitor and adjust dosing as required. TROUGH 24.9 @ 12 HOURS. HOLD DOSE AND DRAW RANDOM LEVEL IN 12 HOURS Follow-Up Labs Follow-Up Labs: Trough: Vancomycin Date/Time Labs Ordered Labs to be done on [date and time ordered]: 02/16 @ 1230
[2023-02-16] MEDS: Piperacil/Tazobactam 3.375 GM in 0.9% Normal Saline (50mL MB+) 50 ML IV (05:07)
[2023-02-16] MEDS: 0.9% Saline Lock 10 ML Syringe IV ×2 (05:07→08:34)
[2023-02-16] MEDS: Furosemide 40 MG/4 ML Vial IV ×3 (05:07→21:12)
--- NOTE | 2023-02-16 06:10 | PCM.HOSP.N ---
Hospitalist Note Patient reporting anxiety and requesting medication. Trial konradpar.
[2023-02-16] MEDS: busPIRone 5 MG Tablet PO (06:20)
[2023-02-16 06:47] LABS: Absolute Lymphocyte Count 0.44 X10^3/uL (0.83-4.51); Absolute Neutrophil Count 7.9 X10^3/uL (2.0-7.7); Basophil# 0.04 X10^3/uL; Basophil% 0.4 % (0-1); Eosinophil# 0.02 X10^3/uL; Eosinophils% 0.2 % (0-5); Hematocrit 28.6 % (40-54); Hemoglobin 8.5 g/dL (13.0-16.5); Lymphocyte # 0.44 X10^3/ul (0.83-4.51); Lymphocyte % 4.8 % (19-41); Mean Corp Hgb Conc 29.7 g/dL (32-36); Mean Corpuscular Hgb 26.2 pg (27.0-32.0); Mean Corpuscular Volume 88.3 fL (80-94); Mean Platelet Vol. 9.9 fl (6.2-12.0); Monocyte# 0.69 X10^3/uL; Monocyte% 7.5 % (0-10); NRBC Flagged by Analyzer 0 % (0-5); Neutrophil # 7.89 X10^3/uL (2.7-7.7); POSITIVE DIFFERENTIAL YES; POSITIVE MORPHOLOGY YES; Platelet Count 148 K/mm3 (150-450); RBC Distribution Width CV 20.7 % (11.6-14.6); RBC Distribution Width SD 67.2 fl (35.1-43.9); Red Blood Count 3.24 M/mm3 (4.6-6.2); White Blood Count 9.2 K/mm3 (4.4-11.0)
[2023-02-16 07:16] LABS: Differential Indicated SCAN CRITERIA MET
[2023-02-16 07:19] LABS: Anion Gap 6 (5-15); BUN 19 mg/dL (7-18); BUN/Creat Ratio 20.7 RATIO (10-20); Chloride 93 mmol/L (98-107); Creatinine, Serum 0.92 mg/dL (0.70-1.30); EST Glomerular Filtration Rate 87 mL/min (>60); Est Glom Filt Rate - Afr Amer 105 mL/min (>60); Estimated Creatinine Clearance 77.14 ml/min; Glucose 232 mg/dL (74-106); Potassium 3.6 mmol/L (3.5-5.1); Sodium Level 135 mmol/L (136-145)
--- NOTE | 2023-02-16 08:17 | PCM.PN.HOSP ---
Reason for Visit Reason for Visit: Diagnoses Acute respiratory failure with hypoxia (02/14/23) Hypoxemia (02/14/23) Objective Data Objective Data Vital Signs: Vital Signs Temp Pulse Resp BP Pulse Ox O2 Del Method O2 Flow Rate 98.2 F 73 18 128/59 H 93 High Flow 8 02/16/23 03:30 02/16/23 03:30 02/16/23 03:30 02/16/23 03:30 02/16/23 06:09 02/16/23 06:09 02/16/23 06:09 FiO2 35 02/15/23 07:30 Oxygen Flow Rate (L/min) 8 Oxygen Delivery Method High Flow Weight: 93.5 kg Body Mass Index (BMI) 29.5 Intake & Output: Intake and Output for Last 24 Hours 02/14/23 02/15/23 02/16/23 23:59 23:59 23:59 Intake Total 1893.45 / 1893.45 2242.0 / 2242.0 50 / 50 Balance 1893.45 / 1893.45 2242.0 / 2242.0 50 / 50 Lab / Micro Data 02/16/23 06:10 02/16/23 06:10 Labs: Laboratory Results - last 24 hr 02/15/23 10:05: MRSA (PCR) Cancelled 02/16/23 00:30: Vancomycin Trough 24.9 H 02/16/23 06:10: WBC 9.2, RBC 3.24 L, Hgb 8.5 L, Hct 28.6 L, MCV 88.3, MCH 26.2 L, MCHC 29.7 L, RDW Std Deviation 67.2 H, RDW Coeff of Ayaka 20.7 H, Plt Count 148 L, MPV 9.9, Immature Gran % (Auto) 1.100 H, Neut % (Auto) 86.0 H, Lymph % (Auto) 4.8 L, [place] % (Auto) 7.5, Eos % (Auto) 0.2, Baso % (Auto) 0.4, Absolute Neuts (auto) 7.9 H, Absolute Lymphs (auto) 0.44 L, Nucleated RBC % 0, Sodium 135 L, Potassium 3.6, Chloride 93 L, Carbon Dioxide 36.0 H, Anion Gap 6, BUN 19 H, Creatinine 0.92, Estim Creat Clear Calc 77.14, Est GFR (MDRD) Af Amer 105, Est GFR (MDRD) Non-Af 87, BUN/Creatinine Ratio 20.7 H, Glucose 232 H, Calcium 9.0 Micro: Microbiology 02/14/23 12:23 Sputum, Expectorated/Coughed Gram Stain - Final 02/14/23 12:23 Sputum, Expectorated/Coughed Respiratory Culture - Preliminary Appears to be normal respiratory edith. Further studies to follow. 02/14/23 12:53 Urine, Clean Catch Legionella Antigen - Final 02/14/23 12:53 Urine, Clean Catch Streptococcus pneumoniae Antigen (M - Final 02/14/23 06:13 Nasal Secretion SARS-CoV-2 & FLU Antigen (Rapid) - Final Physical Exam Narrative GENERAL: cooperative but dyspneic at rest HEENT: Atraumatic; normocephalic EYES; Anicteric, Normal Conjunctiva NECK; supple, normal thyroid, RESPIRATORY: Diminished to auscultation CARDIOVASCULAR: Regular S1 S2, GI: soft, normoactive bowel sounds, : No Renal angle tenderness; EXTREMITIES: No edema, no clubbing, MUSCULOSKELETAL: no muscle wasting NEURO: Awake; no lateralizing signs. SKIN: No Rash PSYCH; Flat affect Assessment & Plan Assessment/Plan (1) Hypoxia: PLAN: Plan Patient is a 72-year-old gentleman with history of esophageal CA with metastatic spread, history of renal transplant, who presented with progressive shortness of breath 1. Acute hypoxic respiratory failure ? Secondary to combination of suspected pneumonia as well as metastatic lung CA and congestive heart failure. Admitted to a monitored bed patient placed on high flow oxygen with consultation placed to pulmonary medicine 2. Pneumonia with suspected atypical organisms ? Patient started on patient remains on broad-spectrum antibiotic therapy with vancomycin and azithromycin as well as Zosyn cultures sent results pending 3. Pulmonary nodules ? Suspected metastatic lung disease from esophageal CA pulmonary medicine on consult 4. Acute congestive heart failure with preserved ejection fraction ? Patient is on diuretic therapy. 2D echo from 11/27/2022 demonstrated EF of 70% with mild concentric left ventricular hypertrophy. Patient also placed on fluid restriction low-sodium diet Daily weight strict input and output 5. Esophageal CA ? Status post gastrostomy tube insertion. Plan esophagectomy was apparently discontinued due to progression of disease. Patient is followed by oncology as outpatient 6. History of renal transplant ? Secondary to diabetic nephropathy did continue patient antirejection medications 7. Paroxysmal atrial fibrillation ? Rate controlled with amiodarone patient is on systemic anticoagulation with apixaban 8. Diabetes mellitus type 2 ? Patient is on insulin pump 9. Hypertension - Blood pressure controlled, home medications continued with dose adjustment as needed 11. Dyslipidemia -Patient is on statin therapy, continued at home dose 12. Anemia - Secondary to chronic disorder monitoring H&H and transfuse if patient becomes symptomatic or hemoglobin falls below 7 13. Hyponatremia ? Secondary to fluid overload state sodium levels improved with diuresis 14. DVT prophylaxis ? Patient on apixaban Time spent in the patient's overall evaluation,decision-making process, review of diagnostic data, adjustment of management, discussion with other providers, nursing nursing and ancillary staff involved in patient's care documentation, 55 Minutes Charges/Coding Visit Charges Inpatient E&M: 53852 [place] [id number]
[2023-02-16] MEDS: Tacrolimus 0.5 MG Capsule GT (08:23)
[2023-02-16] MEDS: Metoprolol Tartrate 100 MG Tablet GT ×2 (08:23→21:11)
[2023-02-16] MEDS: Smz/Tmp Ds Tablet 1 TABLET GT (08:24)
[2023-02-16] MEDS: APIXABAN 5 MG TABLET GT ×2 (08:24→21:11)
[2023-02-16] MEDS: Tacrolimus 0.5 MG Capsule 1 MG GT (08:25)
[2023-02-16] MEDS: Acetaminophen 325 MG Tablet 650 MG PO (08:32)
[2023-02-16] MEDS: LANSOPRAZOLE 15 MG CAPSULE.DR GT (08:32)
[2023-02-16] MEDS: Azithromycin 500 MG in Dextrose 5%-Water (250mL Bag) 250 ML 250 MG IV (08:33)
[2023-02-16] MEDS: predniSONE 5 MG Tablet GT (08:33)
[2023-02-16] MEDS: Jevity 1.5. 1,000 ML Bottle 237 ML GT ×5 (08:34→21:12)
[2023-02-16] MEDS: NYSTATIN 500,000 UNIT/5 ML UDC 500000 UNIT PO ×4 (08:39→21:11)
[2023-02-16 08:53] LABS: Anisocytosis 2+; Differential Comment SCANNED; Hypochromasia 1+; Microcytosis 1+
--- NOTE | 2023-02-16 10:25 | PN.CC_ITS ---
Assessment & Plan Assessment/Plan (1) Hypoxia: PLAN: Plan RECOMMENDATIONS: 1. Continue diuretics as tolerated 2. Likely okay to discontinue antibiotics (except suppression) if okay with ID 3. Possible bronchoscopy if patient can be off of Eliquis for 48 hours 4. Monitor electrolytes and supplement as necessary IMPRESSIONS: 1. Acute hypoxic respiratory failure secondary to suspected acute on chronic CHF Patient had diuretics held 2 days prior to presentation with significant hypoxia on presentation. Patient appears to be responding well. Cannot exclude an indolent infection given patient's immunosuppression from renal transplant and chemotherapy. Patient also could have an element of metastasis. Patient did recently receive a full course of broad-spectrum antibiotics. The patient is a worse with diuretics, could consider doing bronchoscopy as an outpatient. May consider holding off on bronchoscopy until after PET scan as patient may benefit from biopsies concurrently. Defer to oncology and primary team. Previous thoracentesis did have a transudate etiology. Defer to infectious disease on possible interactions between antibiotics and tacrolimus 2. History of CAD/A-fib/diabetes mellitus/history of renal transplant/esophageal cancer status post chemotherapy Complicates care, management, recovery and prognosis. Patient is rate controlled and fully anticoagulated with Eliquis. Eliquis will need to be held prior to any bronchoscopy for at least 48 hours. Patient's blood sugars are significantly elevated. Would not recommend increased dosing of prednisone. Subjective Subjective Patient did well overnight. Discussed with patient and family members at the bedside. Family members did report the patient was taken off of Bumex 2 days prior to presentation. Patient states he subjectively feels improved compared to previous. Patient was seen last week in the pulmonary office and was tolerating room air. Family denies any trauma or aspiration events. Objective Data Objective Data Vital Signs: Vital Signs Temp Pulse Resp BP Pulse Ox O2 Del Method O2 Flow Rate 36.5 C L 84 18 149/74 H 98 High Flow 8 02/16/23 08:18 02/16/23 08:23 02/16/23 08:18 02/16/23 08:18 02/16/23 08:18 02/16/23 08:18 02/16/23 08:18 FiO2 35 02/15/23 07:30 Oxygen Flow Rate (L/min) 8 Oxygen Delivery Method High Flow Weight: 93.5 kg Body Mass Index (BMI) 29.5 Intake & Output: Intake and Output for Last 24 Hours 02/14/23 02/15/23 02/16/23 23:59 23:59 23:59 Intake Total 1893.45 / 1893.45 2242.0 / 2242.0 100 / 100 Balance 1893.45 / 1893.45 2242.0 / 2242.0 100 / 100 Lab / Micro Data Attestation: I reviewed the patient's lab results. 02/16/23 06:10 02/16/23 06:10 Labs: Laboratory Results - last 24 hr 02/15/23 10:05: MRSA (PCR) Cancelled 02/16/23 00:30: Vancomycin Trough 24.9 H 02/16/23 06:10: WBC 9.2, RBC 3.24 L, Hgb 8.5 L, Hct 28.6 L, MCV 88.3, MCH 26.2 L , MCHC 29.7 L, RDW Std Deviation 67.2 H, RDW Coeff of Ayaka 20.7 H, Plt Count 148 L, MPV 9.9, Immature Gran % (Auto) 1.100 H, Neut % (Auto) 86.0 H, Lymph % (Auto) 4.8 L, [place] % (Auto) 7.5, Eos % (Auto) 0.2, Baso % (Auto) 0.4, Absolute Neuts (auto) 7.9 H, Absolute Lymphs (auto) 0.44 L, Nucleated RBC % 0, Differential Com ment SCANNED, Hypochromasia 1+, Anisocytosis 2+, Microcytosis 1+, Sodium 135 L, Potassium 3.6, Chloride 93 L, Carbon Dioxide 36.0 H, Anion Gap 6, BUN 19 H, Creatinine 0.92, Estim Creat Clear Calc 77.14, Est GFR (MDRD) Af Amer 105, Est GFR (MDRD) Non-Af 87, BUN/Creatinine Ratio 20.7 H, Glucose 232 H, Calcium 9.0 Micro: Microbiology 02/14/23 12:23 Sputum, Expectorated/Coughed Gram Stain - Final 02/14/23 12:23 Sputum, Expectorated/Coughed Respiratory Culture - Preliminary Appears to be normal respiratory edith. Further studies to follow. 02/14/23 12:53 Urine, Clean Catch Legionella Antigen - Final 02/14/23 12:53 Urine, Clean Catch Streptococcus pneumoniae Antigen (M - Final 02/14/23 06:13 Nasal Secretion SARS-CoV-2 & FLU Antigen (Rapid) - Final Physical Exam Const alert, oriented x3 and no apparent distress Constitutional Narrative: No conversational dyspnea on nasal cannula oxygen General Appearance: cooperative, well kempt and well developed HEENT normocephalic, head/scalp atraumatic and moist oral mucous membranes Eyes PERRL, EOMs intact bilaterally and conjunctivae normal Neck supple, thyroid normal and no carotid bruits General: trachea midline Resp normal respiratory effort Auscultation: rales right base; Negative for rhonchi or wheezes Cardio regular rate, regular rhythm, S1 normal heart sound, S2 normal heart sound, no murmurs, no rub and no gallops GI normal to inspection, nondistended, normoactive bowel sounds, soft to palpation, non-tender and non-distended Extremity no clubbing, cyanosis or edema Extremity Narrative: Amputations noted Skin no rashes or lesions noted General Skin Exam: no breakdown Neuro oriented x3, CN's II-XII intact bilaterally, moves all extremities and no focal motor deficits Psych affect normal Charges/Coding Visit Charges Inpatient E&M: 55111 Subs Hosp L2
[2023-02-16] MEDS: Vancomycin Trough/Random Due 1 LAB MC (10:46)
[2023-02-16 13:24] LABS: Vancomycin, Random Level 18.7 ug/mL (0.0-15.0)
--- NOTE | 2023-02-16 14:42 | CHAPLAIN ---
Type of Pastoral Visit _x__ Initial Visit ___ Follow-up Visit ___ On-call Visit ___ General Patient Visit ___ Spiritual Assessment ___ Family Conference ___ Bereavement ___ Rapid Response ___ Code Blue ___ Other (describe below) Pastoral Care Referral From _x__ Patient _x__ Family ___ Nurse ___ Physician ___ [employer] ___ College Basketball Coach ___ Other (describe below) Sacrament/Intervention _x__ Active listening ___ Anointing ___ Christianity ___ Bereavement ___ Communion ___ Shanell exploration ___ _x__ Life review _x__ Prayer ___ Reconciliation ___ Sacrament of Sick _x__ Supportive presence ___ Wedding ___ Other (describe below) Pastoral Comments patient appears to be napping but awakens easily to voice; spouse and daughter are in the room and as normal are very welcoming; family gives updates on pt's health and needs; family is very expressive of spiritual care support; pt adds his feelings and thoughts and welcomes presence and prayer; conversation ensues in a casual manner
--- NOTE | 2023-02-16 14:52 | CON.PCM.ID_ITS ---
Assessment & Plan Assessment/Plan (1) Hypoxia: PLAN: Given rapid onset and resolution, seems likely fluid related particularly given correlation with the use of diuretics. Infectious workup neg so far, fungal studies are still pending. Will stop vanc/zosyn/azithro at this time. Cont bactrim for proph. Will follow, thank you (2) Hx of kidney transplant: (3) Esophageal cancer: QUALIFIERS: Malignant neoplasm of esophagus location: unspecified location Qualified Code(s): C15.9 - Malignant neoplasm of esophagus, unspecified HPI Consult Data Date of Consult: 02/16/23 HPI Narrative Reason for Consultation: dyspnea HPI Narrative: MAHAD SULLIVAN, is a 72 M with kidney transplant 5+ years ago at [facility], now on chemo for esophageal cancer (last treatment 6 weeks ago via L chest port). Presented 02/14 to ED with sudden onset dyspnea and frothy white sputum at home. Bumex had been stopped 2 days prior. No fever or chills, no recent change in immunosuppression. No h/o transplant infection or rejection complications. Had thoracentesis about a month ago. No exposure to animals, no recent travel. Admitted here on vanc/zosyn/azithro, feels back to normal. at bedside provided additional history. Full ROS performed and neg except as noted above. [facility] Medical History Ambulates with cane Amputation finger Amputation of toe Anemia of chronic disease Atrial fibrillation Chemotherapy adverse reaction Diabetes mellitus, type II Dialysis AV fistula malfunction Esophageal cancer Esophageal cancer Gastric reflux History of steroid therapy HLD (hyperlipidemia) Hyperglycemia due to diabetes mellitus Hypertension Hypertension Hyponatremia Insulin dependent diabetes mellitus NSTEMI (non-ST elevated myocardial infarction) Wears dentures Wears glasses Wears hearing aid Home Medications prednisone 2.5 mg tablet 5 mg PO DAILY steriod 05/11/15 [History Last Taken 02/13/23] insulin aspart U-100 100 unit/mL (3 mL) subcutaneous pen (Novolog FlexPen U-100 Insulin aspart) See Protocol subcut CONT DM 02/06/18 [History Last Taken 02/06/18] lactose-reduced food with fiber 0.06 gram-1.5 kcal/mL oral liquid (Jevity 1.5 Victorino) 237 ml feeding tube .COMPLEX NUTRITION 10/16/22 [History Last Taken 02/13/23 21:35] ondansetron 8 mg disintegrating tablet 8 mg PO Q8H PRN nausea and vomiting 30 days #30 tabs 10/17/22 [Rx Last Taken Unknown] nystatin 100,000 unit/mL oral suspension 5 ml PO 4X/DAY MOUTH 10/24/22 [History Last Taken 02/13/23] omeprazole 10 mg capsule,delayed release See Rx Instructions feeding tube DAILY reflux 10/24/22 [History Last Taken 02/13/23] metoprolol tartrate 100 mg tablet 100 mg G-tube BID 30 days #60 tabs 11/28/22 [Rx Last Taken 02/13/23] amiodarone 200 mg tablet 200 mg feeding tube DAILY heart #30 tabs 01/21/23 [Rx Last Taken 02/13/23] apixaban 5 mg tablet (Eliquis) 5 mg feeding tube BID #60 tabs 01/21/23 [Rx Last Taken 02/13/23] rosuvastatin 20 mg tablet (Crestor) 20 mg feeding tube QHS cholesterol #1 TAB 01/21/23 [Rx Last Taken 02/13/23] sulfamethoxazole-trimethoprim 1 tab G-tube DAILY antibiotic #1 TAB 01/21/23 [Rx Last Taken 02/13/23] aspirin 81 mg tablet,delayed release (Adult Low Dose Aspirin) 81 mg PO DAILY health maintenance 02/14/23 [History Last Taken 02/13/23] olanzapine 5 mg tablet 5 mg PO BID after chemo 02/14/23 [History Last Taken 02/13/23] tacrolimus 0.5 mg capsule, immediate-release (Prograf) 0.5 mg PO .COMPLEX organ rejection 02/14/23 [History Last Taken 02/13/23] terazosin 5 mg capsule 5 mg PO QHS BP 02/14/23 [History Last Taken 02/13/23] Allergy/AdvReac Type Severity Reaction Status Date / Time diphenhydramine AdvReac Mild jittery/ Verified 02/14/23 05:32 [From Rodo] anxious Family History Mother Kidney disease Hypertension High cholesterol Diabetes Father Kidney disease Hypertension High cholesterol Diabetes Surgical History Amputation of foot Hx of kidney transplant Hx of surgical amputation of finger Renal transplant recipient Renal transplant recipient Social History household members: spouse, family and children Smoking Status: Former smoker how long ago did patient quit smoking: Quit~ 50 years prior smoked youth until quit 2 ppd. alcohol intake: former details: Drank heavily in youth, stopped ~ 50 years prior. substance use type: does not use what type of physical activity do you participate in: walking Physical Exam Const alert, oriented x3 and no apparent distress General Appearance: cooperative HEENT normocephalic and head/scalp atraumatic Eyes PERRL and EOMs intact bilaterally Neck supple and No nodes Resp Auscultation: wheezes Cardio regular rate and regular rhythm GI soft to palpation, non-tender and non-distended Extremity General Extremity: edema Skin no rashes or lesions noted Neuro CN's II-XII intact bilaterally Lab / Micro Data Attestation: I reviewed the patient's lab results. 02/16/23 06:10 02/16/23 06:10 Labs: Laboratory Results - last 24 hr 02/16/23 00:30: Vancomycin Trough 24.9 H 02/16/23 06:10: WBC 9.2, RBC 3.24 L, Hgb 8.5 L, Hct 28.6 L, MCV 88.3, MCH 26.2 L , MCHC 29.7 L, RDW Std Deviation 67.2 H, RDW Coeff of Ayaka 20.7 H, Plt Count 148 L, MPV 9.9, Immature Gran % (Auto) 1.100 H, Neut % (Auto) 86.0 H, Lymph % (Auto) 4.8 L, [place] % (Auto) 7.5, Eos % (Auto) 0.2, Baso % (Auto) 0.4, Absolute Neuts (auto) 7.9 H, Absolute Lymphs (auto) 0.44 L, Nucleated RBC % 0, Differential Comment SCANNED, Hypochromasia 1+, Anisocytosis 2+, Microcytosis 1+, Sodium 135 L, Potassium 3.6, Chloride 93 L, Carbon Dioxide 36.0 H, Anion Gap 6, BUN 19 H, Creatinine 0.92, Estim Creat Clear Calc 77.14, Est GFR (MDRD) Af Amer 105, Est GFR (MDRD) Non-Af 87, BUN/Creatinine Ratio 20.7 H, Glucose 232 H, Calcium 9.0 02/16/23 12:45: Random Vancomycin 18.7 H Micro: Microbiology 02/15/23 12:55 Nasal Secretion Nasal Screen MRSA/MSSA - Final 02/14/23 11:18 Blood Culture (Wb) - Port Blood Culture - Preliminary No growth in 48 hours. 02/14/23 11:10 Blood Culture (Wb) - Anticubital Right Blood Culture - Preliminary No growth in 48 hours.
[2023-02-16] MEDS: Atorvastatin Calcium 40 MG Tablet GT (21:11)
[2023-02-16] MEDS: Doxazosin 4 MG Tablet GT (21:11)
[2023-02-17] VITALS (12 sets, daily range): BP systolic 122–136; BP diastolic 53–81; PULSE 76–83; RESP 16–18; TEMP 36.4–36.9; O2SAT 90–99
[2023-02-17] MEDS: Furosemide 40 MG/4 ML Vial IV ×3 (06:33→22:05)
[2023-02-17] MEDS: 0.9% Saline Lock 10 ML Syringe IV (06:33)
[2023-02-17 06:51] LABS: Absolute Lymphocyte Count 0.51 X10^3/uL (0.83-4.51); Absolute Neutrophil Count 6.9 X10^3/uL (2.0-7.7); Basophil# 0.05 X10^3/uL; Basophil% 0.6 % (0-1); Eosinophil# 0.03 X10^3/uL; Eosinophils% 0.4 % (0-5); Hematocrit 28.8 % (40-54); Hemoglobin 8.4 g/dL (13.0-16.5); Lymphocyte # 0.51 X10^3/ul (0.83-4.51); Lymphocyte % 6.1 % (19-41); Mean Corp Hgb Conc 29.2 g/dL (32-36); Mean Corpuscular Hgb 25.9 pg (27.0-32.0); Mean Corpuscular Volume 88.9 fL (80-94); Mean Platelet Vol. 9.8 fl (6.2-12.0); Monocyte# 0.75 X10^3/uL; NRBC Flagged by Analyzer 0 % (0-5); Neutrophil # 6.91 X10^3/uL (2.7-7.7); Neutrophil % 83.1 % (47-70); POSITIVE DIFFERENTIAL YES; POSITIVE MORPHOLOGY YES; Platelet Count 158 K/mm3 (150-450); RBC Distribution Width CV 20.3 % (11.6-14.6); RBC Distribution Width SD 66.3 fl (35.1-43.9); Red Blood Count 3.24 M/mm3 (4.6-6.2); White Blood Count 8.3 K/mm3 (4.4-11.0)
[2023-02-17 07:13] LABS: Anion Gap 3 (5-15); BUN 20 mg/dL (7-18); Calcium,Total 9.5 mg/dL (8.5-10.1); Chloride 93 mmol/L (98-107); Creatinine, Serum 0.95 mg/dL (0.70-1.30); EST Glomerular Filtration Rate 83 mL/min (>60); Est Glom Filt Rate - Afr Amer 101 mL/min (>60); Estimated Creatinine Clearance 74.71 ml/min; Glucose 124 mg/dL (74-106); Magnesium 1.6 mg/dL (1.6-2.6); Phosphorus 2.7 mg/dL (2.5-4.9); Potassium 3.6 mmol/L (3.5-5.1); Sodium Level 135 mmol/L (136-145)
--- NOTE | 2023-02-17 07:35 | PCM.PN.HOSP ---
Reason for Visit Reason for Visit: Diagnoses Malignant neoplasm of esophagus, unspecified (02/14/23) Acute respiratory failure with hypoxia (02/14/23) Hypoxemia (02/14/23) Kidney transplant status (02/14/23) Subjective Subjective Patient seen clinical condition did improve remarkably following initiation of Lasix. Seen by ID antibiotics subsequently discontinued. Objective Data Objective Data Vital Signs: Vital Signs Temp Pulse Resp BP Pulse Ox O2 Del Method O2 Flow Rate 97.8 F 78 16 136/67 H 93 Nasal Cannula 3 02/17/23 06:25 02/17/23 06:25 02/17/23 06:25 02/17/23 06:25 02/17/23 06:25 02/17/23 06:25 02/17/23 06:25 FiO2 35 02/15/23 07:30 Oxygen Flow Rate (L/min) 3 Oxygen Delivery Method Nasal Cannula Weight: 93.5 kg Body Mass Index (BMI) 29.5 Intake & Output: Intake and Output for Last 24 Hours 02/15/23 02/16/23 02/17/23 23:59 23:59 23:59 Intake Total 2242.0 / 2242.0 2290 / 2290 Balance 2242.0 / 2242.0 2290 / 2290 Lab / Micro Data 02/17/23 06:15 02/17/23 06:15 Labs: Laboratory Results - last 24 hr 02/16/23 06:10: Differential Comment SCANNED, Hypochromasia 1+, Anisocytosis 2+, Microcytosis 1+ 02/16/23 12:45: Random Vancomycin 18.7 H 02/17/23 06:15: Sodium 135 L, Potassium 3.6, Chloride 93 L, Carbon Dioxide 39.0 H, Anion Gap 3 L, BUN 20 H, Creatinine 0.95, Estim Creat Clear Calc 74.71, Est GFR (MDRD) Af Amer 101, Est GFR (MDRD) Non-Af 83, BUN/Creatinine Ratio 21.0 H, Glucose 124 H, Calcium 9.5, Phosphorus 2.7, Magnesium 1.6 Micro: Microbiology 02/15/23 12:55 Nasal Secretion Nasal Screen MRSA/MSSA - Final 02/14/23 11:18 Blood Culture (Wb) - Port Blood Culture - Preliminary No growth in 48 hours. 02/14/23 11:10 Blood Culture (Wb) - Anticubital Right Blood Culture - Preliminary No growth in 48 hours. 02/14/23 12:23 Sputum, Expectorated/Coughed Gram Stain - Final 02/14/23 12:23 Sputum, Expectorated/Coughed Respiratory Culture - Preliminary Appears to be normal respiratory edith. Further studies to follow. 02/14/23 12:53 Urine, Clean Catch Legionella Antigen - Final 02/14/23 12:53 Urine, Clean Catch Streptococcus pneumoniae Antigen (M - Final 02/14/23 06:13 Nasal Secretion SARS-CoV-2 & FLU Antigen (Rapid) - Final Physical Exam Narrative GENERAL: cooperative but dyspneic at rest HEENT: Atraumatic; normocephalic EYES; Anicteric, Normal Conjunctiva NECK; supple, normal thyroid, RESPIRATORY: Diminished to auscultation CARDIOVASCULAR: Regular S1 S2, GI: soft, normoactive bowel sounds, : No Renal angle tenderness; EXTREMITIES: No edema, no clubbing, MUSCULOSKELETAL: no muscle wasting NEURO: Awake; no lateralizing signs. SKIN: No Rash PSYCH; Flat affect Assessment & Plan Assessment/Plan (1) Hypoxia: PLAN: Plan Patient is a 72-year-old gentleman with history of esophageal CA with metastatic spread, history of renal transplant, who presented with progressive shortness of breath 1. Acute hypoxic respiratory failure ? Secondary to combination of suspected pneumonia as well as metastatic lung CA and congestive heart failure. Admitted to a monitored bed patient placed on high flow oxygen with consultation placed to pulmonary medicine ? 02/17/2023 patient remains on supplemental oxygen currently down to 3 L. Patient antibiotics discontinued by ID following significant improvement after initiation of diuretics 2. Pneumonia with suspected atypical organisms ? Patient started on patient remains on broad-spectrum antibiotic therapy with vancomycin and azithromycin as well as Zosyn cultures sent results pending ? 02/17/2023 patient antibiotics discontinued by ID 3. Pulmonary nodules ? Suspected metastatic lung disease from esophageal CA pulmonary medicine on consult 4. Acute congestive heart failure with preserved ejection fraction ? Patient is on diuretic therapy. 2D echo from 11/27/2022 demonstrated EF of 70% with mild concentric left ventricular hypertrophy. Patient also placed on fluid restriction low-sodium diet Daily weight strict input and output ? 02/17/2023 patient did improve on diuretic therapy 5. Esophageal CA ? Status post gastrostomy tube insertion. Plan esophagectomy was apparently discontinued due to progression of disease. Patient is followed by oncology as outpatient 6. History of renal transplant ? Secondary to diabetic nephropathy did continue patient antirejection medications 7. Paroxysmal atrial fibrillation ? Rate controlled with amiodarone patient is on systemic anticoagulation with apixaban 8. Diabetes mellitus type 2 ? Patient is on insulin pump 9. Hypertension - Blood pressure controlled, home medications continued with dose adjustment as needed 11. Dyslipidemia -Patient is on statin therapy, continued at home dose 12. Anemia - Secondary to chronic disorder monitoring H&H and transfuse if patient becomes symptomatic or hemoglobin falls below 7 13. Hyponatremia ? Secondary to fluid overload state sodium levels improved with diuresis 14. DVT prophylaxis ? Patient on apixaban Time spent in the patient's overall evaluation,decision-making process, review of diagnostic data, adjustment of management, discussion with other providers, nursing nursing and ancillary staff involved in patient's care documentation, 35 Minutes Charges/Coding Visit Charges Inpatient E&M: 63278 Subs Hosp L2
[2023-02-17 07:48] LABS: Anisocytosis 2+; Differential Comment SCANNED; Differential Indicated SCAN CRITERIA MET
[2023-02-17 07:49] LABS: Hypochromasia 1+; Macrocytosis 1+; Microcytosis 1+; Polychromasia RARE
--- NOTE | 2023-02-17 09:27 | PN.CC_ITS ---
Assessment & Plan Assessment/Plan (1) Hypoxia: PLAN: Plan RECOMMENDATIONS: 1. Ongoing diuresis as tolerated by hemodynamics and renal function. 2. Wean supplemental oxygen to maintain saturations at or above 90%. 3. Continue Bactrim prophylaxis 4. Encourage incentive spirometer use and mobilize patient as tolerated. IMPRESSIONS: 1. Acute hypoxic respiratory failure secondary to suspected acute on chronic CHF The patient had diuretics held 2 days prior to presentation with significant hypoxia on presentation. His respiratory status has improved significantly with IV diuretics. Underlying indolent infection seems unlikely, given his rapid clinical improvement. Therefore, antibiotics were discontinued per infectious diseases. The patient will be continued on Bactrim prophylaxis. Recommend continuing diuretics as tolerated by hemodynamics and renal function. Continue to wean supplemental oxygen to maintain saturations at or above 90%. 2. History of CAD/A-fib/diabetes mellitus/history of renal tr ansplant/esophageal cancer status post chemotherapy Complicates care, management, recovery and prognosis. The patient is rate controlled and fully anticoagulated with Eliquis. This note was generated with [employer] dictation software. It may contain incorrect words, spelling, and punctuation that were not noted in checking the note before signing. Subjective Subjective The patient was seen and examined at the bedside this morning. Events from the last 24 hours have been reviewed. The patient is currently afebrile, hemodynamically stable and maintaining appropriate oxygen saturations on 2 L/min via nasal cannula. Antibiotics were discontinued yesterday. The patient remains on scheduled Lasix. Creatinine is stable. Objective Data Objective Data The patient's most recent lab work, culture data and imaging studies have all been personally reviewed. Infectious workup is pending. Vital Signs: Vital Signs Temp Pulse Resp BP Pulse Ox O2 Del Method O2 Flow Rate 97.8 F 78 16 136/67 H 92 Room Air 5 02/17/23 06:25 02/17/23 06:25 02/17/23 06:25 02/17/23 06:25 02/17/23 09:03 02/17/23 09:03 02/17/23 09:03 FiO2 35 02/15/23 07:30 Oxygen Flow Rate (L/min) 5 Oxygen Delivery Method Room Air Weight: 206 lb 2.115 oz Body Mass Index (BMI) 29.5 Intake & Output: Intake and Output for Last 24 Hours 02/15/23 02/16/23 02/17/23 23:59 23:59 23:59 Intake Total 2242.0 / 2242.0 2290 / 2290 237 / 237 Balance 2242.0 / 2242.0 2290 / 2290 237 / 237 Lab / Micro Data Attestation: I reviewed the patient's lab results. 02/17/23 06:15 02/17/23 06:15 Labs: Laboratory Results - last 24 hr 02/16/23 12:45: Random Vancomycin 18.7 H 02/17/23 06:15: WBC 8.3, RBC 3.24 L, Hgb 8.4 L, Hct 28.8 L, MCV 88.9, MCH 25.9 L , MCHC 29.2 L, RDW Std Deviation 66.3 H, RDW Coeff of Ayaka 20.3 H, Plt Count 158, MPV 9.8, Immature Gran % (Auto) 0.800, Neut % (Auto) 83.1 H, Lymph % (Auto) 6.1 L, [place] % (Auto) 9.0, Eos % (Auto) 0.4, Baso % (Auto) 0.6, Absolute Neuts (auto) 6.9, Absolute Lymphs (auto) 0.51 L, Nucleated RBC % 0, Differential Comment SCANNED, Polychromasia RARE, Hypochromasia 1+, Anisocytosis 2+, Microcytosis 1+, Macrocytosis 1+, Sodium 135 L, Potassium 3.6, Chloride 93 L, Carbon Dioxide 39.0 H, Anion Gap 3 L, BUN 20 H, Creatinine 0.95, Estim Creat Clear Calc 74.71, Est GFR (MDRD) Af Amer 101, Est GFR (MDRD) Non-Af 83, BUN/Creatinine Ratio 21.0 H, Glucose 124 H, Calcium 9.5, Phosphorus 2.7, Magnesium 1.6 Micro: Microbiology 02/14/23 12:23 Sputum, Expectorated/Coughed Gram Stain - Final 02/14/23 12:23 Sputum, Expectorated/Coughed Respiratory Culture - Final 02/15/23 12:55 Nasal Secretion Nasal Screen MRSA/MSSA - Final 02/14/23 11:18 Blood Culture (Wb) - Port Blood Culture - Preliminary No growth in 48 hours. 02/14/23 11:10 Blood Culture (Wb) - Anticubital Right Blood Culture - Preliminary No growth in 48 hours. 02/14/23 12:53 Urine, Clean Catch Legionella Antigen - Final 02/14/23 12:53 Urine, Clean Catch Streptococcus pneumoniae Antigen (M - Final 02/14/23 06:13 Nasal Secretion SARS-CoV-2 & FLU Antigen (Rapid) - Final Physical Exam Const alert and no apparent distress Constitutional Narrative: Sitting in bedside recliner. General Appearance: cooperative HEENT normocephalic, head/scalp atraumatic and moist oral mucous membranes Eyes PERRL, EOMs intact bilaterally and conjunctivae normal Neck supple General: trachea midline Chest inspection of chest normal Resp normal respiratory effort Auscultation: rales; Negative for rhonchi or wheezes Cardio regular rate and regular rhythm GI normal to inspection, nondistended, normoactive bowel sounds Extremity no clubbing, cyanosis or edema Skin no rashes or lesions noted Neuro oriented x3, CN's II-XII intact bilaterally and moves all extremities Psych cooperative and affect normal Charges/Coding Visit Charges Inpatient E&M: 08798 Subs Hosp L2
[2023-02-17] MEDS: NYSTATIN 500,000 UNIT/5 ML UDC 500000 UNIT PO ×4 (09:45→22:04)
[2023-02-17] MEDS: Metoprolol Tartrate 100 MG Tablet GT ×2 (09:45→22:04)
[2023-02-17] MEDS: Tacrolimus 0.5 MG Capsule 1 MG GT (09:46)
[2023-02-17] MEDS: predniSONE 5 MG Tablet GT (09:46)
[2023-02-17] MEDS: LANSOPRAZOLE 15 MG CAPSULE.DR GT (09:46)
[2023-02-17] MEDS: APIXABAN 5 MG TABLET GT ×2 (09:46→22:05)
[2023-02-17] MEDS: Jevity 1.5. 1,000 ML Bottle 237 ML GT ×5 (09:55→22:07)
--- NOTE | 2023-02-17 14:41 | CASEMGMT ---
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 Patient is aware documents are not on file and to bring in copies. Ginette Sosa MSW [employer]
--- NOTE | 2023-02-17 15:12 | CASEMGMT ---
WALTER WILLIAMSON chart review: Patient was admitted 01/14-01/21/23 for respiratory failure. See RN CM assessment from 01/15/23. Patient was discharged to home with family support and follow-up plans in place. Patient did not qualify for home oxygen at discharge. Patient returned to [facility] ED for SOB on 02/14/23 and was admitted for Acute hypoxic respiratory failure. WALTER CM in to discuss readmission and discharge needs with patient. Patient sleeping, daughter at bedside. Per daughter, patient has attended his follow-up appts. Per daughter, oncologist had adjusted his diuretic medication. Will monitor for home oxygen at discharge. Daughter denies need for HHC at discharge. CM will continue to follow this patient and plan for a safe dishcarge.
[2023-02-17] MEDS: Atorvastatin Calcium 40 MG Tablet GT (22:05)
[2023-02-17] MEDS: Doxazosin 4 MG Tablet GT (22:05)
[2023-02-17] MEDS: Tacrolimus 0.5 MG Capsule GT (22:06)
[2023-02-18 04:00] VITALS: BP 130/70; PULSE 76; RESP 18; TEMP 36.6; O2SAT 93
[2023-02-18 06:00] VITALS: BP 122/58; PULSE 77; RESP 18; TEMP 36.4; O2SAT 93
[2023-02-18] MEDS: Furosemide 40 MG/4 ML Vial IV ×2 (06:12→14:05)
[2023-02-18] MEDS: 0.9% Saline Lock 10 ML Syringe IV ×3 (06:14→15:44)
[2023-02-18 06:18] LABS: Absolute Lymphocyte Count 0.59 X10^3/uL (0.83-4.51); Absolute Neutrophil Count 5.9 X10^3/uL (2.0-7.7); Basophil# 0.04 X10^3/uL; Basophil% 0.5 % (0-1); Differential Indicated SCAN CRITERIA MET; Eosinophil# 0.24 X10^3/uL; Eosinophils% 3.2 % (0-5); Hematocrit 28.2 % (40-54); Hemoglobin 8.4 g/dL (13.0-16.5); Lymphocyte # 0.59 X10^3/ul (0.83-4.51); Lymphocyte % 7.9 % (19-41); Mean Corp Hgb Conc 29.8 g/dL (32-36); Mean Corpuscular Hgb 26.4 pg (27.0-32.0); Mean Corpuscular Volume 88.7 fL (80-94); Mean Platelet Vol. 9.8 fl (6.2-12.0); Monocyte# 0.72 X10^3/uL; Monocyte% 9.6 % (0-10); NRBC Flagged by Analyzer 0 % (0-5); Neutrophil # 5.88 X10^3/uL (2.7-7.7); Neutrophil % 78.3 % (47-70); POSITIVE DIFFERENTIAL YES; Platelet Count 166 K/mm3 (150-450); RBC Distribution Width CV 19.9 % (11.6-14.6); Red Blood Count 3.18 M/mm3 (4.6-6.2); White Blood Count 7.5 K/mm3 (4.4-11.0)
[2023-02-18 06:52] LABS: Anion Gap 3 (5-15); BUN 22 mg/dL (7-18); BUN/Creat Ratio 24.7 RATIO (10-20); Calcium,Total 9.3 mg/dL (8.5-10.1); Chloride 92 mmol/L (98-107); Creatinine, Serum 0.89 mg/dL (0.70-1.30); EST Glomerular Filtration Rate 90 mL/min (>60); Est Glom Filt Rate - Afr Amer 108 mL/min (>60); Estimated Creatinine Clearance 79.74 ml/min; Glucose 125 mg/dL (74-106); Potassium 3.5 mmol/L (3.5-5.1); Sodium Level 136 mmol/L (136-145)
[2023-02-18 07:27] LABS: Differential Comment SCANNED
[2023-02-18 08:35] VITALS: BP 119/59; PULSE 80; RESP 16; TEMP 36.9; O2SAT 95
[2023-02-18] MEDS: Jevity 1.5. 1,000 ML Bottle 237 ML GT ×3 (08:44→14:58)
[2023-02-18] MEDS: NYSTATIN 500,000 UNIT/5 ML UDC 500000 UNIT PO ×2 (08:44→14:05)
[2023-02-18 08:45] VITALS: BP 119/59; PULSE 80
[2023-02-18] MEDS: APIXABAN 5 MG TABLET GT (08:45)
[2023-02-18] MEDS: LANSOPRAZOLE 15 MG CAPSULE.DR GT (08:45)
[2023-02-18] MEDS: Metoprolol Tartrate 100 MG Tablet GT (08:45)
[2023-02-18] MEDS: Smz/Tmp Ds Tablet 1 TABLET GT (08:45)
[2023-02-18] MEDS: predniSONE 5 MG Tablet GT (08:47)
[2023-02-18] MEDS: Tacrolimus 0.5 MG Capsule 1 MG GT (08:47)
[2023-02-18 11:41] VITALS: O2SAT 82; O2SAT 93; O2SAT 94
--- NOTE | 2023-02-18 11:50 | PCM.DC ---
Discharge Instructions Diet Discharge Diet: - (NPO) Activity Discharge Activity: Return to Normal Activity Weight Bearing Status: Full weight bearing Follow Up Care Test Results: Test results from this visit will be discussed in further detail at your follow-up appointment, if applicable. Discharge Plan Admission Admit Date/Time: 02/14/23 07:23 Primary Reason for Your Visit: congestive heart failure Attending Provider: Sebastian Sorenson Primary Care Provider: Mikayla Lopez Consulting Providers: Michael Carrasco; José Miguel Victoria; Nola Lombardo; Frank Mike; Angela Vasquez IRRIGATING PUMP OPERATOR; Yordy Allen; Sebastian Sorenson; Td Arroyo; Orion Ho Instructions Additional Instructions / Restrictions: Use oxygen as prescribed Discharge Orders/Prescriptions Prescriptions: New bumetanide 1 mg tablet 1 mg PO BID Qty: 60 0RF Continued prednisone 2.5 MG tablet 5 mg PO DAILY Patient Comments: STEROID insulin aspart U-100 [Novolog FlexPen U-100 Insulin] 100 UNITS/ML insulin pen See Protocol subcut CONT Protocol: 6. Sliding Scale Insulin Custom Condition: mg/dl range Dose/Route: Number of Units Instruction: using insulin pump Protocol Text: Custom Sliding Scale Rx Instructions: insulin pump metoprolol tartrate 100 mg Tablet 100 mg G-tube BID 30 Days Qty: 60 0RF aspirin [Adult Low Dose Aspirin] 81 mg tablet,delayed release (DR/EC) 81 mg PO DAILY olanzapine 5 mg tablet 5 mg PO BID Rx Instructions: FOR THREE DAYS AFTER EACH CHEMO tacrolimus [Prograf] 0.5 mg capsule 0.5 mg PO .COMPLEX Rx Instructions: 1mg in AM; 0.5 mg orally qhs; terazosin 5 mg capsule 5 mg PO QHS Jevity 1.5 Victorino 0.06 gram-1.5 kcal/mL liquid 237 ml feeding tube .COMPLEX Patient Comments: 60ML WATER FLUSH BEFORE AND AFTER EACH BOLUS Rx Instructions: 237 mL via feeding tube 0900,1200,1500,1800,2100; ondansetron 8 mg tablet,disintegrating 8 mg PO Q8H PRN (Reason: nausea and vomiting) 30 Days Qty: 30 0RF nystatin 100,000 unit/mL suspension 5 ml PO 4X/DAY Rx Instructions: swish and swallow omeprazole 10 mg capsule,delayed release(DR/EC) See Rx Instructions feeding tube DAILY Rx Instructions: 10ML via feeding tube daily; amiodarone 200 mg tablet 200 mg feeding tube DAILY Qty: 30 11RF rosuvastatin [Crestor] 20 MG tablet 20 mg feeding tube QHS Qty: 1 0RF Patient Comments: decrease cholesterol Eliquis 5 mg tablet 5 mg feeding tube BID Qty: 60 11RF sulfamethoxazole-trimethoprim 1 tab G-tube DAILY Qty: 1 0RF Rx Instructions: 1 tablet daily on m , thursday, thursday Referrals / Follow Up: Mikayla Lopez MD [Primary Care Provider] - See Referral Note (at your next scheduled appointment) Francisco Anthony DO [Med Staff - Active Staff] - See Referral Note (next thursday) Disposition Disposition (needs filled in before D/C Order can be placed): Home, Self Care
--- NOTE | 2023-02-18 11:59 | PCM.DC.SUM ---
Providers Date of Admission: 02/14/23 Date of Discharge: 02/18/23 Primary Care Physician: Dr. Mikayla Lopez MD Consultations 02/14/23 11:37 Consult: Hyperbaric Nurse / Pulmonary Medicine Routine Consulting Provider: Pulmonary Medicine dipak [place] Reason for Consult: acute hypoxic respiratory failure EMERGENT Consult: No Notified: Yes Date Notified: 02/14/23 Time Notified: 11:38 Method of Notification: Text 02/15/23 16:33 Consult: Infectious Disease Routine Consulting Provider: Td Arroyo Reason for Consult: ? pneumonia EMERGENT Consult: No Notified: Yes Date Notified: 02/16/23 Time Notified: 06:46 Method of Notification: Answering Service Reason For Visit: ACUTE HYPOXIC RESPIRATORY FAILURE Diagnosis Discharge Diagnosis (1) Hypoxia: Status: Inactive Code(s): R09.02 - Hypoxemia Plan 1. Acute hypoxic respiratory failure-secondary to suspected pneumonia and/or congestive heart failure, metastatic spread of the patient's esophageal cancer is another possibility. Patient is currently on Zithromax, vancomycin, Bactrim, and Zosyn. I will write for infectious diseases see the patient tomorrow #2 suspected acute on chronic congestive heart failure with preserved ejection fraction-patient is on IV Lasix at this time, I have decided to increase his Lasix to every 8 hours, labs will be monitored, I talked to pulmonary medicine today and they felt that he could have an atypical pneumonia but they were okay with increasing the patient's Lasix. #3 esophageal cancer-overall poor prognosis, complicates care, medical course, recovery, and prognosis #4 hyponatremia-this will need to be monitored due to increase in his Lasix. Total clinical time spent by myself addressing the patient's medical issues, reviewing all of his data, and collaborating with patient's care team: 25-minute Medications at Discharge Home Medications prednisone 2.5 mg tablet 5 mg PO DAILY steriod 05/11/15 insulin aspart U-100 100 unit/mL (3 mL) subcutaneous pen (Novolog FlexPen U-100 Insulin aspart) See Protocol subcut CONT DM 02/06/18 lactose-reduced food with fiber 0.06 gram-1.5 kcal/mL oral liquid (Jevity 1.5 Victorino) 237 ml feeding tube .COMPLEX NUTRITION 10/16/22 ondansetron 8 mg disintegrating tablet 8 mg PO Q8H PRN nausea and vomiting 30 days #30 tabs 10/17/22 nystatin 100,000 unit/mL oral suspension 5 ml PO 4X/DAY MOUTH 10/24/22 omeprazole 10 mg capsule,delayed release See Rx Instructions feeding tube DAILY reflux 10/24/22 metoprolol tartrate 100 mg tablet 100 mg G-tube BID 30 days #60 tabs 11/28/22 amiodarone 200 mg tablet 200 mg feeding tube DAILY heart #30 tabs 01/21/23 apixaban 5 mg tablet (Eliquis) 5 mg feeding tube BID #60 tabs 01/21/23 rosuvastatin 20 mg tablet (Crestor) 20 mg feeding tube QHS cholesterol #1 TAB 01/21/23 sulfamethoxazole-trimethoprim 1 tab G-tube DAILY antibiotic #1 TAB 01/21/23 aspirin 81 mg tablet,delayed release (Adult Low Dose Aspirin) 81 mg PO DAILY health maintenance 02/14/23 olanzapine 5 mg tablet 5 mg PO BID after chemo 02/14/23 tacrolimus 0.5 mg capsule, immediate-release (Prograf) 0.5 mg PO .COMPLEX organ rejection 02/14/23 terazosin 5 mg capsule 5 mg PO QHS BP 02/14/23 bumetanide 1 mg tablet 1 mg PO BID #60 tabs 02/18/23 Hospital Course Operations None Procedures None Summary of Care Provided Minutes Spent on Discharge: 32 Hospital Course: This 72 year-old white male was seen in the emergency room at [facility] with complaints of shortness of breath. He states he was taken off his Bumex at home due to a low sodium by his oncologist. In the emergency room, patient's pulse ox was in the 70s on room air, he was tachypneic and using accessory muscles, his respiratory rate was 28. He was placed on BiPAP, labs were obtained which showed a white blood cell count of 13.6 and a hemoglobin of 8.7, chemistry showed a sodium of 125 and his beta nitric peptide was 234. Flu and COVID test were negative, chest x-ray showed bilateral infiltrates. Patient was admitted to PCU for suspected pneumonia and acute on chronic diastolic congestive heart failure, he was placed on IV antibiotics and he was given IV diuresis. Over the next several days, the patient's oxygen requirement improved, it was felt that majority of the patient's symptoms were due to acute on chronic diastolic congestive heart failure. On 02/18/2023, patient was assessed for home-going oxygen requirement, on room air the patient was 82%, 2 L at rest he was 94% and ambulating on 2 L he was 93%. Ambulatory oxygen was set up for the patient at home and he was expected to use it inside his home and outside his home during activities. On 02/18/2023, patient was seen and examined: On examination he appeared in good health and spirits. Vital signs as documented. Skin warm and dry and without overt rashes. Neck without JVD, neck was supple, trachea midline, thyroid was normal. Lungs clear bilaterally, normal air movement was noted. Heart exam notable for regular rhythm, normal sounds and absence of murmurs, rubs or gallops. Abdomen unremarkable and without evidence of organomegaly, masses, or abdominal aortic enlargement. Bowel sounds are present, abdomen is not distended. Extremities nonedematous, no cyanosis was noted, no clubbing was noted. Neuro: Cranial nerves II through XII are grossly intact, no focal motor deficits were noted, sensation to light touch and pinprick intact, motor exam 5/5 throughout. Psych: Patient is alert and oriented x3, he does not appear anxious or depressed, he does not appear agitated. Patient appears stable for discharge home on 02/18/2023. As a further note, I did talk to his oncologist Dr. Anthony about the patient's medical treatment and recommended that he remain on outpatient diuretics. Weight / BMI Weight Weight: 93.5 kg Body Mass Index (BMI) 29.5 ABG / Lab / Microbiology Data 02/18/23 05:50 02/18/23 05:50 Laboratory: Laboratory Results - last 24 hr 02/18/23 05:50: WBC 7.5, RBC 3.18 L, Hgb 8.4 L, Hct 28.2 L, MCV 88.7, MCH 26.4 L, MCHC 29.8 L, RDW Std Deviation 65.0 H, RDW Coeff of Ayaka 19.9 H, Plt Count 166, MPV 9.8, Immature Gran % (Auto) 0.500, Neut % (Auto) 78.3 H, Lymph % (Auto) 7.9 L, [place] % (Auto) 9.6, Eos % (Auto) 3.2, Baso % (Auto) 0.5, Absolute Neuts (auto) 5.9, Absolute Lymphs (auto) 0.59 L, Nucleated RBC % 0, Differential Comment SCANNED, Sodium 136, Potassium 3.5, Chloride 92 L, Carbon Dioxide 41.0 H, Anion Gap 3 L, BUN 22 H, Creatinine 0.89, Estim Creat Clear Calc 79.74, Est GFR (MDRD) Af Amer 108, Est GFR (MDRD) Non-Af 90, BUN/Creatinine Ratio 24.7 H, Glucose 125 H, Calcium 9.3 Microbiology: Microbiology 02/14/23 12:23 Sputum, Expectorated/Coughed Gram Stain - Final 02/14/23 12:23 Sputum, Expectorated/Coughed Respiratory Culture - Final 02/15/23 12:55 Nasal Secretion Nasal Screen MRSA/MSSA - Final 02/14/23 11:18 Blood Culture (Wb) - Port Blood Culture - Preliminary No growth in 48 hours. 02/14/23 11:10 Blood Culture (Wb) - Anticubital Right Blood Culture - Preliminary No growth in 48 hours. 02/14/23 12:53 Urine, Clean Catch Legionella Antigen - Final 02/14/23 12:53 Urine, Clean Catch Streptococcus pneumoniae Antigen (M - Final 02/14/23 06:13 Nasal Secretion SARS-CoV-2 & FLU Antigen (Rapid) - Final D/C Instructions Discharge Diet: - (NPO) Weight Bearing Status: Full weight bearing Meaningful Use Info Meaningful Use Diagnoses (Choose all that apply): CHF CHF RAD/ARB ordered at discharge?: No Reason RAD/ARB not ordered?: Not indicated Documented LVEF (%): 70 Discharge Plan Admission Admit Date/Time: 02/14/23 07:23 Primary Reason for Your Visit: congestive heart failure Attending Provider: Sebastian Sorenson Primary Care Provider: Mikayla Lopez Consulting Providers: Michael Carrasco; José Miguel Victoria; Nola Lombardo; Frank Mike; Angela Vasquez REGULATOR TESTER; Yordy Allen; Sebastian Sorenson; Td Arroyo; Orion Ho Instructions Additional Instructions / Restrictions: Use oxygen as prescribed Discharge Orders/Prescriptions Prescriptions: New bumetanide 1 mg tablet 1 mg PO BID Qty: 60 0RF Continued prednisone 2.5 MG tablet 5 mg PO DAILY Patient Comments: STEROID insulin aspart U-100 [Novolog FlexPen U-100 Insulin] 100 UNITS/ML insulin pen See Protocol subcut CONT Protocol: 6. Sliding Scale Insulin Custom Condition: mg/dl range Dose/Route: Number of Units Instruction: using insulin pump Protocol Text: Custom Sliding Scale Rx Instructions: insulin pump metoprolol tartrate 100 mg Tablet 100 mg G-tube BID 30 Days Qty: 60 0RF aspirin [Adult Low Dose Aspirin] 81 mg tablet,delayed release (DR/EC) 81 mg PO DAILY olanzapine 5 mg tablet 5 mg PO BID Rx Instructions: FOR THREE DAYS AFTER EACH CHEMO tacrolimus [Prograf] 0.5 mg capsule 0.5 mg PO .COMPLEX Rx Instructions: 1mg in AM; 0.5 mg orally qhs; terazosin 5 mg capsule 5 mg PO QHS Jevity 1.5 Victorino 0.06 gram-1.5 kcal/mL liquid 237 ml feeding tube .COMPLEX Patient Comments: 60ML WATER FLUSH BEFORE AND AFTER EACH BOLUS Rx Instructions: 237 mL via feeding tube 0900,1200,1500,1800,2100; ondansetron 8 mg tablet,disintegrating 8 mg PO Q8H PRN (Reason: nausea and vomiting) 30 Days Qty: 30 0RF nystatin 100,000 unit/mL suspension 5 ml PO 4X/DAY Rx Instructions: swish and swallow omeprazole 10 mg capsule,delayed release(DR/EC) See Rx Instructions feeding tube DAILY Rx Instructions: 10ML via feeding tube daily; amiodarone 200 mg tablet 200 mg feeding tube DAILY Qty: 30 11RF rosuvastatin [Crestor] 20 MG tablet 20 mg feeding tube QHS Qty: 1 0RF Patient Comments: decrease cholesterol Eliquis 5 mg tablet 5 mg feeding tube BID Qty: 60 11RF sulfamethoxazole-trimethoprim 1 tab G-tube DAILY Qty: 1 0RF Rx Instructions: 1 tablet daily on m , thursday, thursday Referrals / Follow Up: Mikayla Lopez MD [Primary Care Provider] - See Referral Note (at your next scheduled appointment) Francisco Anthony DO [Med Staff - Active Staff] - 02/25/23 1:20 pm (next thursday) Disposition Disposition (needs filled in before D/C Order can be placed): Home, Self Care Charges/Coding Visit Charges Inpatient E&M: 38860 Disch Hosp >30min
--- NOTE | 2023-02-18 13:41 | PN.CC_ITS ---
Assessment & Plan Assessment/Plan (1) Hypoxia: PLAN: Plan RECOMMENDATIONS: 1. Continue diuretics as tolerated 2. Likely okay to discontinue antibiotics (except suppression) if okay with ID on discharge 3. Possible bronchoscopy if patient can be off of Eliquis for 48 hours 4. Monitor electrolytes and supplement as necessary 5. Consider obtaining PET prior to bronchoscopy IMPRESSIONS: 1. Acute hypoxic respiratory failure secondary to suspected acute on chronic CHF Patient had diuretics held 2 days prior to presentation with significant hypoxia on presentation. Patient appears to be responding well. Cannot exclude an indolent infection given patient's immunosuppression from renal transplant and chemotherapy. Patient also could have an element of metastasis. Patient did recently receive a full course of broad-spectrum antibiotics recently. May consider holding off on bronchoscopy until after PET scan as patient may benefit from biopsies concurrently. Defer to oncology and primary team. Previous thor acentesis did have a transudate etiology. Defer to infectious disease on possible interactions between antibiotics and tacrolimus. Okay to discharge on supplemental oxygen from my perspective with outpatient follow-up 2. History of CAD/A-fib/diabetes mellitus/history of renal carney splant/esophageal cancer status post chemotherapy Complicates care, management, recovery and prognosis. Patient is rate controlled and fully anticoagulated with Eliquis. Eliquis will need to be held prior to any bronchoscopy for at least 48 hours. Patient's blood sugars are significantly elevated. Would not recommend increased dosing of prednisone. Subjective Subjective Patient did well overnight. Patient's oxygen requirements continue to improve. Patient is not reporting any cough or chest pain. Patient does state that he has a PET scan scheduled for tomorrow. Objective Data Objective Data Vital Signs: Vital Signs Temp Pulse Resp BP Pulse Ox O2 Del Method O2 Flow Rate 36.9 C 80 16 119/59 L 82 Nasal Cannula 0 02/18/23 08:35 02/18/23 08:45 02/18/23 08:35 02/18/23 08:45 02/18/23 11:41 02/18/23 08:35 02/18/23 11:41 FiO2 35 02/15/23 07:30 Oxygen Flow Rate (L/min) [ 2 AMBULATING with Oxygen #1] Oxygen Flow Rate (L/min) [At 2 REST with Oxygen] Oxygen Flow Rate (L/min) [At 0 REST on Room Air] Oxygen Flow Rate (L/min) 2 Oxygen Delivery Method Nasal Cannula Weight: 93.5 kg Body Mass Index (BMI) 29.5 Intake & Output: Intake and Output for Last 24 Hours 02/16/23 02/17/23 02/18/23 23:59 23:59 23:59 Intake Total 0 / 2290 1997 714 / 714 Balance 0 / 2290 1997 714 / 714 Lab / Micro Data Attestation: I reviewed the patient's lab results. 02/18/23 05:50 02/18/23 05:50 Labs: Laboratory Results - last 24 hr 02/18/23 05:50: WBC 7.5, RBC 3.18 L, Hgb 8.4 L, Hct 28.2 L, MCV 88.7, MCH 26.4 L , MCHC 29.8 L, RDW Std Deviation 65.0 H, RDW Coeff of Ayaka 19.9 H, Plt Count 166, MPV 9.8, Immature Gran % (Auto) 0.500, Neut % (Auto) 78.3 H, Lymph % (Auto) 7.9 L, [place] % (Auto) 9.6, Eos % (Auto) 3.2, Baso % (Auto) 0.5, Absolute Neuts (auto) 5.9, Absolute Lymphs (auto) 0.59 L, Nucleated RBC % 0, Differential Comment SCANNED, Sodium 136, Potassium 3.5, Chloride 92 L, Carbon Dioxide 41.0 H, Anion Gap 3 L, BUN 22 H, Creatinine 0.89, Estim Creat Clear Calc 79.74, Est GFR (MDRD) Af Amer 108, Est GFR (MDRD) Non-Af 90, BUN/Creatinine Ratio 24.7 H, Glucose 125 H, Calcium 9.3 Micro: Microbiology 02/14/23 12:23 Sputum, Expectorated/Coughed Gram Stain - Final 02/14/23 12:23 Sputum, Expectorated/Coughed Respiratory Culture - Final 02/15/23 12:55 Nasal Secretion Nasal Screen MRSA/MSSA - Final 02/14/23 11:18 Blood Culture (Wb) - Port Blood Culture - Preliminary No growth in 48 hours. 02/14/23 11:10 Blood Culture (Wb) - Anticubital Right Blood Culture - Preliminary No growth in 48 hours. 02/14/23 12:53 Urine, Clean Catch Legionella Antigen - Final 02/14/23 12:53 Urine, Clean Catch Streptococcus pneumoniae Antigen (M - Final 02/14/23 06:13 Nasal Secretion SARS-CoV-2 & FLU Antigen (Rapid) - Final Physical Exam Const alert, oriented x3 and no apparent distress Constitutional Narrative: No conversational dyspnea on nasal cannula oxygen General Appearance: cooperative, well kempt and well developed HEENT normocephalic, head/scalp atraumatic and moist oral mucous membranes Eyes PERRL, EOMs intact bilaterally and conjunctivae normal Neck supple, thyroid normal and no carotid bruits General: trachea midline Resp normal respiratory effort Auscultation: rales right base; Negative for rhonchi or wheezes Cardio regular rate, regular rhythm, S1 normal heart sound, S2 normal heart sound, no murmurs, no rub and no gallops GI normal to inspection, nondistended, normoactive bowel sounds, soft to palpation, non-tender and non-distended Extremity no clubbing, cyanosis or edema Extremity Narrative: Amputations noted Skin no rashes or lesions noted General Skin Exam: no breakdown Neuro oriented x3, CN's II-XII intact bilaterally, moves all extremities and no focal motor deficits Psych affect normal Charges/Coding Visit Charges Inpatient E&M: 86997 Subs Hosp L2
[2023-02-18 13:59] VITALS: BP 123/60; PULSE 70; RESP 16; TEMP 36.8; O2SAT 95
--- NOTE | 2023-02-18 14:47 | PCM.HOSP.N ---
Hospitalist Note Patient is ambulatory in the home and community and requires home oxygen with portability, he requires 2 L via nasal cannula at rest and while ambulating, patient's pulse ox on room air at rest was 82
--- NOTE | 2023-02-18 15:17 | CASEMGMT ---
Patient has order for discharge. Patient qualifies for home oxygen at discharge. Script received and sent to [facility] via [employer]. RN CM in to discuss needs at discharge. Patient and deny needs or help at discharge. Patient and had no further questions or concerns.
--- NOTE | 2023-02-18 15:59 | PHA.DC_ITS ---
Pharmacy [facility] has performed discharge medication reconciliation and counseling for this patient. 1. BUMETANIDE 1MG PO BID The patient's discharge medication list was reviewed for discrepancies and discrepancies were resolved. The patient was counseled on the following discharge medications and changes in medications for homegoing were reviewed. The Reason for Use, instructions for use, and potential side effects were reviewed for all new medications. The patient's questions regarding all of their medications were answered. The patient was able to verbally demonstrate an understanding of their discharge medications. Medications at Discharge Home Medications prednisone 2.5 mg tablet 5 mg PO DAILY steriod 05/11/15 insulin aspart U-100 100 unit/mL (3 mL) subcutaneous pen (Novolog FlexPen U-100 Insulin aspart) See Protocol subcut CONT DM 02/06/18 lactose-reduced food with fiber 0.06 gram-1.5 kcal/mL oral liquid (Jevity 1.5 Victorino) 237 ml feeding tube .COMPLEX NUTRITION 10/16/22 ondansetron 8 mg disintegrating tablet 8 mg PO Q8H PRN nausea and vomiting 30 days #30 tabs 10/17/22 nystatin 100,000 unit/mL oral suspension 5 ml PO 4X/DAY MOUTH 10/24/22 omeprazole 10 mg capsule,delayed release See Rx Instructions feeding tube DAILY reflux 10/24/22 metoprolol tartrate 100 mg tablet 100 mg G-tube BID 30 days #60 tabs 11/28/22 amiodarone 200 mg tablet 200 mg feeding tube DAILY heart #30 tabs 01/21/23 apixaban 5 mg tablet (Eliquis) 5 mg feeding tube BID #60 tabs 01/21/23 rosuvastatin 20 mg tablet (Crestor) 20 mg feeding tube QHS cholesterol #1 TAB 01/21/23 sulfamethoxazole-trimethoprim 1 tab G-tube DAILY antibiotic #1 TAB 01/21/23 aspirin 81 mg tablet,delayed release (Adult Low Dose Aspirin) 81 mg PO DAILY health maintenance 02/14/23 olanzapine 5 mg tablet 5 mg PO BID after chemo 02/14/23 tacrolimus 0.5 mg capsule, immediate-release (Prograf) 0.5 mg PO .COMPLEX organ rejection 02/14/23 terazosin 5 mg capsule 5 mg PO QHS BP 02/14/23 bumetanide 1 mg tablet 1 mg PO BID #60 tabs 02/18/23
[2023-02-19 13:08] LABS: Cryptococcus Ag, Serum Negative (Negative)
[2023-02-20 17:07] LABS: Aspirgillus flavus Negative (Neg:<1:1); Aspirgillus fumigatus Negative (Neg:<1:1); Aspirgillus niger Negative (Neg:<1:1); Histoplasma Abs Negative (Neg:<1:1)
[2023-02-21 00:07] LABS: Aspergillus fumigatus <0.10 kU/L (Class 0)
[2023-03-19 16:09] LABS: URINE HISTOPLASMA ANTIGEN Negative (<0.5 ng/mL)
== END 2023-02-18 16:10 | disposition home or self-care (01) | DRG 193 ==
LOC: ED 06:38 → PCU 07:42
PROVIDERS: Internal Medicine; Admitting Provider Student in an Organized Health Care Education/Training Program; Emergency Provider Emergency Medicine; PCP Internal Medicine; Visit Provider Internal Medicine
DX: J18.9 Pneumonia, unspecified organism (principal); J96.21 Acute and chronic respiratory failure with hypoxia; I50.33 Acute on chronic diastolic (congestive) heart failure; N18.6 End stage renal disease; E87.1 Hypo-osmolality and hyponatremia; C15.9 Malignant neoplasm of esophagus, unspecified; I13.2 Hypertensive heart and chronic kidney disease with heart failure and with stage 5 chronic kidney disease, or end stage renal disease; Z94.0 Kidney transplant status; D63.0 Anemia in neoplastic disease; E11.21 Type 2 diabetes mellitus with diabetic nephropathy; Z79.4 Long term (current) use of insulin; E11.65 Type 2 diabetes mellitus with hyperglycemia; I48.0 Paroxysmal atrial fibrillation; E11.22 Type 2 diabetes mellitus with diabetic chronic kidney disease; Z93.1 Gastrostomy status; F32.A Depression, unspecified; F41.9 Anxiety disorder, unspecified; E78.5 Hyperlipidemia, unspecified; I25.10 Atherosclerotic heart disease of native coronary artery without angina pectoris; I25.2 Old myocardial infarction; Z96.41 Presence of insulin pump (external) (internal); R91.8 Other nonspecific abnormal finding of lung field; Z66 Do not resuscitate; Z79.01 Long term (current) use of anticoagulants; Z79.2 Long term (current) use of antibiotics; Z79.52 Long term (current) use of systemic steroids; Z79.82 Long term (current) use of aspirin; Z79.899 Other long term (current) drug therapy; Z87.891 Personal history of nicotine dependence
CPT/HCPCS: 36415; 36591; 71045; 80048; 80202; 82009; 82803; 83605; 83615; 83735; 83880; 84100; 84484; 85025; 86003; 86606; 86698; 87015; 87040; 87070; 87081; 87102; 87116; 87205; 87206; 87385; 87428; 87449; 87899; 93005; 94002; 94003; 94762; 97162; 97166; 97535; 97802; 99252; 99285; J7030; J7040; A4216; G0463; J0295; J1940

== ENCOUNTER 2023-03-19 13:20 | Emergency (ER) | payer OTHER, SELFPAY ==
[2023-03-19] VITALS (7 sets, daily range): BP systolic 102–135; BP diastolic 40–79; PULSE 67–113; RESP 12–22; TEMP 36.6; O2SAT 90–95; BMI 26.6; BMI 27.4
--- NOTE | 2023-03-19 13:51 | EX.ED.DYSGE1 ---
HPI History of Present Illness Chief Complaint: Weakness Informant: patient Onset/Context/Timing Onset: Today Context: Gradual Onset Timing: Continuous Quality: Fatigued Location: Generalized Worsened by: Chemotherapy Relieved by: Nothing Narrative Narrative: Patient presents with weakness and fatigue that began today. Patient states it has gradually gotten worse throughout the day today. Patient states he feels tired and wants to sleep all day. Patient recently had a round of chemotherapy for his esophageal cancer. Patient had his chemotherapy pump removed today. They noticed his blood pressure was low and referred him to the emergency department. Patient states he normally feels fatigued after chemotherapy but states today it is worse than usual. [facility] Medical History Ambulates with cane Amputation finger Amputation of toe Anemia Anemia of chronic disease Atrial fibrillation Bilateral edema of lower extremity Charcot's joint of foot Chemotherapy adverse reaction Chronic renal failure Coronary artery disease Diabetes mellitus, type II Diabetic foot ulcer associated with diabetes mellitus due to underlying condition Diabetic neuropathy associated with type 2 diabetes mellitus Dialysis AV fistula malfunction Esophageal cancer Esophageal cancer Esophageal cancer Esophageal dysphagia Esophageal stricture Fever Finger osteomyelitis, left Gastric reflux Gastrostomy tube dependent History of steroid therapy HLD (hyperlipidemia) Hyperglycemia due to diabetes mellitus Hypertension Hypertension Hyponatremia Hypoxia Insulin dependent diabetes mellitus Nephropathy, diabetic Neuropathy in diabetes NSTEMI (non-ST elevated myocardial infarction) Obesity Presence of insulin pump Wears dentures Wears glasses Wears hearing aid Home Medications prednisone 2.5 mg tablet 5 mg PO DAILY steriod 05/11/15 [History Last Taken 02/13/23] insulin aspart U-100 100 unit/mL (3 mL) subcutaneous pen (Novolog FlexPen U-100 Insulin aspart) See Protocol subcut CONT DM 02/06/18 [History Last Taken 02/06/18] lactose-reduced food with fiber 0.06 gram-1.5 kcal/mL oral liquid (Jevity 1.5 Victorino) 237 ml feeding tube .COMPLEX NUTRITION 10/16/22 [History Last Taken 02/13/23 21:35] ondansetron 8 mg disintegrating tablet 8 mg PO Q8H PRN nausea and vomiting 30 days #30 tabs 10/17/22 [Rx Last Taken Unknown] nystatin 100,000 unit/mL oral suspension 5 ml PO 4X/DAY MOUTH 10/24/22 [History Last Taken 02/13/23] omeprazole 10 mg capsule,delayed release See Rx Instructions feeding tube DAILY reflux 10/24/22 [History Last Taken 02/13/23] amiodarone 200 mg tablet 200 mg feeding tube DAILY heart #30 tabs 01/21/23 [Rx Last Taken 02/13/23] apixaban 5 mg tablet (Eliquis) 5 mg feeding tube BID #60 tabs 01/21/23 [Rx Last Taken 02/13/23] rosuvastatin 20 mg tablet (Crestor) 20 mg feeding tube QHS cholesterol #1 TAB 01/21/23 [Rx Last Taken 02/13/23] sulfamethoxazole-trimethoprim 1 tab G-tube DAILY antibiotic #1 TAB 01/21/23 [Rx Last Taken 02/13/23] olanzapine 5 mg tablet 5 mg PO BID after chemo 02/14/23 [History Last Taken 02/13/23] tacrolimus 0.5 mg capsule, immediate-release (Prograf) 0.5 mg PO .COMPLEX organ rejection 02/14/23 [History Last Taken 02/13/23] terazosin 5 mg capsule 5 mg PO QHS BP 02/14/23 [History Last Taken 02/13/23] albuterol sulfate 90 mcg/actuation aerosol inhaler (Ventolin HFA) 2 puff inhalation Q4H PRN shortness of breath or wheezing #18 grams 03/03/23 [Rx Last Taken Unknown] bumetanide 1 mg tablet 0.5 mg PO BID 03/03/23 [History Last Taken Unknown] metoprolol tartrate 25 mg tablet 25 mg PO BID #60 tabs 03/19/23 [Rx Last Taken Unknown] Allergy/AdvReac Type Severity Reaction Status Date / Time diphenhydramine AdvReac Mild jittery/ Verified 03/19/23 13:23 [From Benadryl] anxious Family History Mother Kidney disease Hypertension High cholesterol Diabetes Father Kidney disease Hypertension High cholesterol Diabetes Surgical History Amputation of foot Hx of kidney transplant Hx of surgical amputation of finger Insulin pump status Renal transplant recipient Renal transplant recipient Social History household members: spouse, family and children Smoking Status: Former smoker how long ago did patient quit smoking: Quit~ 50 years prior smoked youth until quit 2 ppd. alcohol intake: former details: Drank heavily in youth, stopped ~ 50 years prior. substance use type: does not use what type of physical activity do you participate in: walking ROS ROS ED Constitutional Constitutional ED: Denies chills or fever(s) Eyes Eyes: Denies blurry vision or change in vision ENT ENT ED: Reports rhinorrhea; Denies sore throat Cardiovascular Cardiovascular: Denies chest pain or palpitations Respiratory/Chest Respiratory/Chest: Denies cough or dyspnea Gastrointestinal Gastrointestinal: Reports nausea; Denies vomiting Genitourinary Genitourinary ED: Denies dysuria or hematuria Musculoskeletal Musculoskeletal: Reports neck pain; Denies back pain Integumentary Denies abscess or rash Neurologic Neurologic: Reports weakness; Denies headache(s) Allergic/Immunologic Allergic/Immunologic ED: Denies mouth swelling or urticaria EXAM Physical Exam Const Vital Signs: 03/19/23 13:21 03/19/23 13:49 03/19/23 13:50 Temperature 97.8 F 97.8 F Temperature Source Temporal Temporal Pulse Rate 113 H 67 67 Respiratory Rate 20 H 16 16 Respiratory Effort Blood Pressure 102/40 L 115/57 L 115/57 L Blood Pressure Mean 60 76 76 Pulse Ox 94 94 Oxygen Delivery Method Nasal Cannula Nasal Cannula Nasal Cannula Oxygen Flow Rate (L/min) 3 3 3 03/19/23 14:09 03/19/23 15:20 Temperature Temperature Source Pulse Rate 75 Respiratory Rate 14 Respiratory Effort Normal Blood Pressure 118/54 L Blood Pressure Mean 75 Pulse Ox 95 Oxygen Delivery Method Room Air Oxygen Flow Rate (L/min) 3 Positive well nourished and well developed General Appearance ED: well developed and NAD HEENT Reports moist mucous membranes Neck supple and no JVD Chest Wall inspection of chest normal and palpation of chest normal Resp normal respiratory effort and clear to auscultation bilaterally Cardio regular rate and regular rhythm GI non-tender and non-distended Palpation: soft Neuro oriented x3, CN's II-XII intact bilaterally and no sensory deficits noted Sensorium / Orientation: alert Motor Exam: general weakness Psych mental status grossly normal MDM MDM MDM Narrative Medical decision making narrative: Differential diagnosis includes anemia, electrolyte abnormality, dehydration, infection, sepsis, cardiac dysrhythmia, cardiac ischemia, COVID-19 infection, influenza infection, and RSV infection. CBC will be obtained to assess for leukocytosis and anemia. Comprehensive metabolic profile will be obtained to assess for hepatic function, renal function, and electrolyte abnormality. Urinalysis will be obtained to assess for urinary tract infection and hematuria. Blood cultures will be obtained to assess for sepsis. Serum lactate will be obtained to assess for sepsis. PT with INR and PTT will be obtained to assess for coagulopathy. Urine culture will be obtained to assess for urinary tract infection. COVID-19, influenza, and RSV PCR will be obtained to assess for viral infection. EKG will be obtained to assess for cardiac dysrhythmia and cardiac ischemia. High-sensitivity troponin will be obtained to assess for cardiac ischemia. History & Record Review Additional record(s) reviewed:: Prior labs Lab Data Attestation: I reviewed the patient's lab results. Lab results narrative: CBC was reviewed. There is a mild anemia with a hemoglobin of 9.4 hematocrit 31.8. This is unchanged compared to previous results. Platelet count was slightly low at 145. Pro time with INR was reviewed. PT was 21.4 and INR is 1.8. PTT was reviewed and was normal at 27.4. Comprehensive metabolic profile was reviewed and was essentially within normal limits. Serum lactate was reviewed and was elevated at 3.0. Urinalysis was reviewed. There were 10-25 red blood cells and occult blood of 150. There is no evidence of urinary tract infection. High-sensitivity troponin was reviewed and was normal at 11. Labs: Laboratory Results - last 24 hr 03/19/23 03/19/23 14:17 14:55 WBC 10.7 RBC 3.56 L Hgb 9.4 L Hct 31.8 L MCV 89.3 MCH 26.4 L MCHC 29.6 L RDW Std Deviation 62.2 H RDW Coeff of Ayaka 19.3 H Plt Count 145 L MPV 9.7 Immature Gran % (Auto) 0.600 Neut % (Auto) 94.2 H Lymph % (Auto) 2.0 L [place]wey % (Auto) 3.1 Eos % (Auto) 0.0 Baso % (Auto) 0.1 Absolute Neuts (auto) 10.1 H Absolute Lymphs (auto) 0.21 L Nucleated RBC % 0 Differential Comment SCANNED PT 21.4 H INR 1.8 APTT 27.4 Sodium 136 Potassium 4.5 Chloride 99 Carbon Dioxide 34.0 H Anion Gap 3 L BUN 33 H Creatinine 1.04 Estim Creat Clear Calc 66.09 Est GFR (MDRD) Af Amer 91 Est GFR (MDRD) Non-Af 75 BUN/Creatinine Ratio 31.7 H Glucose 169 H Lactic Acid 3.0 H* Calcium 9.1 Total Bilirubin 0.90 AST 14 L ALT 17 Alkaline Phosphatase 67 Troponin I High Sens 11 Total Protein 5.6 L Albumin 2.1 L Globulin 3.5 Albumin/Globulin Ratio 0.6 L Urine Color Yellow Urine Clarity Clear Urine pH 7.0 Ur Specific [place] 1.010 Urine Protein 15 H Urine Glucose (UA) Normal Urine Ketones Negative Urine Occult Blood 150 H Urine Nitrite Negative Urine Bilirubin Negative Urine Urobilinogen 8 H Ur Leukocyte Esterase 25 H Urine RBC 10-25 SEEN Urine WBC 0 SEEN Ur Squamous Epith Cells 0-5 SEEN Urine Bacteria RARE Urine Mucus 0 SEEN Radiography Chest X-Ray - ED: 1 View, Read by ED Physician, Read by Radiologist, Right Infiltrate and Left Infiltrate Diagnostic Testing: Clinical Impression(s) from Imaging Studies Chest X-Ray 03/19/23 14:22 IMPRESSION: Improving bilateral pneumonia. Electronically Signed: David Delgado MD at 14:46 EST , Portable 1 view chest x-ray was obtained. On my independent interpretation, lung hartley show bilateral pneumonia which is improved from previous x-ray. There is normal cardiac silhouette. Bony thorax is normal. There is no acute process noted. Radiologist also interpreted the x-ray and agrees. EKG Initial EKG: Attestation: I personally reviewed and interpreted this EKG as follows: Interpretation: Sinus Rhythm (67) and No Acute Injury Pattern Comments: EKG was obtained. On my independent interpretation, it showed a normal sinus rhythm with a rate of 67. ME interval was normal at 190 ms. QRS interval was normal at 98 ms. QTc interval slightly prolonged at 496 ms. There is left axis deviation at -56. There is a left anterior fascicular block pattern noted. There are no acute ST or T wave changes. Prior EKG tracings: available for review Prior: Unchanged (02/14/2023) Treatment and Re-Evaluation :: Patient was given IV fluids. Patient was feeling better on reevaluation. Patient was advised of his findings. Patient has home oxygen. Patient would prefer to go home. Case was discussed with Dr. Anthony. He is agreeable with discharging patient home. Patient was advised to return if feeling more short of breath, increasing oxygen demand, or worse in any way. Patient was instructed to follow-up with his primary care physician in 5 to 7 days. Patient was instructed to follow-up with Dr. Anthony as scheduled. Patient and spouse understood and were agreeable with the plan. All questions were answered. Discharge Plan Triage Chief Complaint: Weakness ED Provider: Yordy Mehta Dx/Rx/DC Orders Clinical Impression: General weakness, Hypoxia, Esophageal cancer Instructions: Cancer: Managing Fatigue, ED Weakness (Uncertain Cause) Prescriptions: No Action metoprolol tartrate 25 mg tablet 25 mg PO BID Qty: 60 11RF Rx Instructions: 1 tablet via G-tube twice daily bumetanide 1 mg tablet 0.5 mg PO BID albuterol sulfate [Ventolin HFA] 90 mcg/actuation HFA aerosol inhaler 2 puff inhalation Q4H PRN (Reason: shortness of breath or wheezing) Qty: 18 6RF prednisone 2.5 MG tablet 5 mg PO DAILY Patient Comments: STEROID insulin aspart U-100 [Novolog FlexPen U-100 Insulin] 100 UNITS/ML insulin pen See Protocol subcut CONT Protocol: 6. Sliding Scale Insulin Custom Condition: mg/dl range Dose/Route: Number of Units Instruction: using insulin pump Protocol Text: Custom Sliding Scale Rx Instructions: insulin pump olanzapine 5 mg tablet 5 mg PO BID Rx Instructions: FOR THREE DAYS AFTER EACH CHEMO tacrolimus [Prograf] 0.5 mg capsule 0.5 mg PO .COMPLEX Rx Instructions: 1mg in AM; 0.5 mg orally qhs; terazosin 5 mg capsule 5 mg PO QHS Jevity 1.5 Victorino 0.06 gram-1.5 kcal/mL liquid 237 ml feeding tube .COMPLEX Patient Comments: 60ML WATER FLUSH BEFORE AND AFTER EACH BOLUS Rx Instructions: 237 mL via feeding tube 0900,1200,1500,1800,2100; ondansetron 8 mg tablet,disintegrating 8 mg PO Q8H PRN (Reason: nausea and vomiting) 30 Days Qty: 30 0RF nystatin 100,000 unit/mL suspension 5 ml PO 4X/DAY Rx Instructions: swish and swallow omeprazole 10 mg capsule,delayed release(DR/EC) See Rx Instructions feeding tube DAILY Rx Instructions: 10ML via feeding tube daily; amiodarone 200 mg tablet 200 mg feeding tube DAILY Qty: 30 11RF rosuvastatin [Crestor] 20 MG tablet 20 mg feeding tube QHS Qty: 1 0RF Patient Comments: decrease cholesterol Eliquis 5 mg tablet 5 mg feeding tube BID Qty: 60 11RF sulfamethoxazole-trimethoprim 1 tab G-tube DAILY Qty: 1 0RF Rx Instructions: 1 tablet daily on m , thursday, thursday Primary Care Provider: Mikayla Lopez Referrals: Mikayla Lopez MD [Primary Care Provider] - 5-7 Days Francisco Anthony DO [Med Staff - Active Staff] - Keep Elmer appointment Disposition Disposition: Home, Self Care Capacity Legal Allergy Physician Reflex Medical hold order details:: IF a medical hold is selected below, a suggested order for a MEDICAL HOLD will reflex upon signing the document. Next of kin: [place] law dictates a PRIORITY LIST for identifying legal decision-maker/legal next of kin in the following order (LNOK): 1st: The patient?s legal guardian, if any 2nd: The patient's spouse (if status is questionable, consult Risk Management) 3rd: The patient?s adult child(judy) (majority, if multiple children) 4th: The patient?s parents 5th: The patient?s adult siblings (majority, if multiple children siblings)
[2023-03-19] MEDS: 0.9% Normal Saline (500mL Bag) 500 ML 1000 ML IV (14:19)
--- NOTE | 2023-03-19 14:22 | RAD_ITS ---
EXAM: XR CHEST, 1 VIEW CLINICAL INDICATION: Weakness TECHNIQUE: Frontal view of the chest. COMPARISON: XR Chest dated 02/14/2023 FINDINGS: LUNGS AND PLEURAL SPACES: Interval improvement in the bilateral pulmonary opacities. HEART: Normal heart size. MEDIASTINUM: No mediastinal or hilar mass. BONES/JOINTS: No acute abnormality. TUBES, LINES AND DEVICES: And left IJ central venous catheter tip remains at the junction of the superior vena cava and right atrium. RAD/Chest 1 View (Portable) IMPRESSION: Improving bilateral pneumonia. Electronically Signed: David Delgado MD at 14:46 EST ,
[2023-03-19 14:29] LABS: Absolute Lymphocyte Count 0.21 X10^3/uL (0.83-4.51); Absolute Neutrophil Count 10.1 X10^3/uL (2.0-7.7); Basophil# 0.01 X10^3/uL; Basophil% 0.1 % (0-1); Hematocrit 31.8 % (40-54); Hemoglobin 9.4 g/dL (13.0-16.5); Lymphocyte # 0.21 X10^3/ul (0.83-4.51); Mean Corp Hgb Conc 29.6 g/dL (32-36); Mean Corpuscular Hgb 26.4 pg (27.0-32.0); Mean Corpuscular Volume 89.3 fL (80-94); Mean Platelet Vol. 9.7 fl (6.2-12.0); Monocyte# 0.33 X10^3/uL; Monocyte% 3.1 % (0-10); NRBC Flagged by Analyzer 0 % (0-5); Neutrophil # 10.11 X10^3/uL (2.7-7.7); Neutrophil % 94.2 % (47-70); POSITIVE DIFFERENTIAL YES; Platelet Count 145 K/mm3 (150-450); RBC Distribution Width CV 19.3 % (11.6-14.6); RBC Distribution Width SD 62.2 fl (35.1-43.9); Red Blood Count 3.56 M/mm3 (4.6-6.2); White Blood Count 10.7 K/mm3 (4.4-11.0)
[2023-03-19 14:32] LABS: Differential Indicated SCAN CRITERIA MET
[2023-03-19 14:49] LABS: ALB/GLOB Ratio 0.6 RATIO (0.9-2.4); AST(SGOT) 14 U/L (15-37); Alanine Aminotransfer ALT/SGPT 17 U/L (16-61); Albumin, Serum 2.1 g/dL (3.2-5.0); Alkaline Phosphatase 67 U/L (45-117); Anion Gap 3 (5-15); BUN 33 mg/dL (7-18); BUN/Creat Ratio 31.7 RATIO (10-20); Calcium,Total 9.1 mg/dL (8.5-10.1); Chloride 99 mmol/L (98-107); Creatinine, Serum 1.04 mg/dL (0.70-1.30); EST Glomerular Filtration Rate 75 mL/min (>60); Est Glom Filt Rate - Afr Amer 91 mL/min (>60); Estimated Creatinine Clearance 66.09 ml/min; Globulin 3.5 g/dL (2.2-4.2); Glucose 169 mg/dL (74-106); Potassium 4.5 mmol/L (3.5-5.1); Protein, Total 5.6 g/dL (6.4-8.2); Sodium Level 136 mmol/L (136-145); Troponin-I HS (w/2H Reflex) 11 pg/mL (3.0-78.0)
[2023-03-19 14:51] LABS: International Normalized Ratio 1.8; Prothrombin Time (Protime)PT. 21.4 SECONDS (11.7-14.9)
[2023-03-19 14:53] LABS: Differential Comment SCANNED; Partial Thromboplast Time 27.4 Seconds (24.1-36.2)
[2023-03-19 15:04] LABS: Mucous, Urine 0 SEEN /hpf (<or=2+); White Blood Cells 0 SEEN /hpf (0-5)
[2023-03-19 15:10] LABS: Color, Urine Yellow (Yellow); Glucose, Dipstick Normal (Normal); Ketone-Dipstick Negative (Negative); Leukocyte Esterase-Dipstick 25 /ul (Negative); Nitrite-Dipstick Negative (Negative); Occult Blood-Urine 150 /ul (Negative); Protein-Dipstick 15 mg/dl (Negative); Urine Bilirubin Dipstick Negative (Negative); Urine Clarity Clear (Clear); Urine Urobilinogen 8 mg/dl (Normal)
--- NOTE | 2023-03-19 15:17 | ED.RN ---
LACTIC ACID 3.0
[2023-03-19 15:22] LABS: Red Blood Cells-Urine 10-25 SEEN /hpf (0-5)
[2023-03-19 15:23] LABS: Bacteria RARE /hpf (None Seen); Squamous Epithelial Cells - UA 0-5 SEEN /hpf (0-5)
[2023-03-19 16:23] LABS: Reflex Troponin-HS? (from REC) Y
[2023-03-19 17:09] LABS: Troponin-I HS 14 pg/mL (3.0-78.0)
--- NOTE | 2023-03-19 18:03 | ED.RN ---
VAD FLUSHED WITH 20ML 0.9 NS AND 5ML HEPARIN PRIOR TO DEACCESSING. UNABLE TO SIGN OF FLUSHES BECAUSE THEY ARE UNVERIFIED AND PATIENT IS ALREADY DISCHARGED
[2023-03-19 18:23] LABS: Reflex Lactate? Y
== END 2023-03-19 18:05 | disposition home or self-care (01) ==
PROVIDERS: Emergency Provider Emergency Medicine; PCP Internal Medicine; Referring Provider Emergency Medicine; Visit Provider Emergency Medicine
DX: R53.1 Weakness (principal); C15.9 Malignant neoplasm of esophagus, unspecified; E11.40 Type 2 diabetes mellitus with diabetic neuropathy, unspecified; E11.69 Type 2 diabetes mellitus with other specified complication; E11.22 Type 2 diabetes mellitus with diabetic chronic kidney disease; I48.91 Unspecified atrial fibrillation; Z79.4 Long term (current) use of insulin; E78.5 Hyperlipidemia, unspecified; R09.02 Hypoxemia; D63.0 Anemia in neoplastic disease; I25.10 Atherosclerotic heart disease of native coronary artery without angina pectoris; I25.2 Old myocardial infarction; I12.9 Hypertensive chronic kidney disease with stage 1 through stage 4 chronic kidney disease, or unspecified chronic kidney disease; N18.9 Chronic kidney disease, unspecified; Z94.0 Kidney transplant status; Z79.01 Long term (current) use of anticoagulants; Z79.52 Long term (current) use of systemic steroids; Z87.891 Personal history of nicotine dependence
CPT/HCPCS: 36591; 71045; 80053; 81001; 83605; 84484; 85025; 85610; 85730; 87040; 87077; 87186; 87631; 93005; 96360; 99285; J7040; A4216

== ENCOUNTER → 2023-03-19 | Outpatient (CLI) | payer OTHER, SELFPAY ==
[2023-03-19 12:05] LABS: Absolute Lymphocyte Count 0.25 X10^3/uL (0.83-4.51); Absolute Neutrophil Count 11.7 X10^3/uL (2.0-7.7); Hematocrit 33.9 % (40-54); Hemoglobin 10.3 g/dL (13.0-16.5); Lymphocyte # 0.25 X10^3/ul (0.83-4.51); Mean Corp Hgb Conc 30.4 g/dL (32-36); Mean Corpuscular Hgb 26.9 pg (27.0-32.0); Mean Corpuscular Volume 88.5 fL (80-94); Monocyte# 0.44 X10^3/uL; Monocyte% 3.5 % (0-10); NRBC Flagged by Analyzer 0 % (0-5); Neutrophil # 11.73 X10^3/uL (2.7-7.7); Neutrophil % 94.1 % (47-70); POSITIVE DIFFERENTIAL YES; Platelet Count 156 K/mm3 (150-450); RBC Distribution Width CV 19.6 % (11.6-14.6); RBC Distribution Width SD 61.5 fl (35.1-43.9); Red Blood Count 3.83 M/mm3 (4.6-6.2); White Blood Count 12.5 K/mm3 (4.4-11.0)
[2023-03-19 12:32] LABS: Anion Gap 2 (5-15); BUN 28 mg/dL (7-18); BUN/Creat Ratio 26.2 RATIO (10-20); Calcium,Total 9.2 mg/dL (8.5-10.1); Chloride 101 mmol/L (98-107); Creatinine, Serum 1.07 mg/dL (0.70-1.30); EST Glomerular Filtration Rate 73 mL/min (>60); Est Glom Filt Rate - Afr Amer 88 mL/min (>60); Glucose 157 mg/dL (74-106); Potassium 4.9 mmol/L (3.5-5.1); Sodium Level 137 mmol/L (136-145)
[2023-03-19 12:36] LABS: Differential Indicated SCAN CRITERIA MET
[2023-03-19 12:40] LABS: Differential Comment SCANNED
== END | disposition home or self-care (01) ==
LOC: LAB 11:09
PROVIDERS: PCP Internal Medicine; Referring Provider Internal Medicine Cardiovascular Disease; Visit Provider Internal Medicine Cardiovascular Disease
DX: R53.83 Other fatigue (principal); E11.9 Type 2 diabetes mellitus without complications; I10 Essential (primary) hypertension
CPT/HCPCS: 36415; 80048; 85025

== ENCOUNTER 2023-03-20 16:18 | Inpatient (IN) | payer OTHER, SELFPAY ==
[2023-03-20 16:19] VITALS: BP 130/53; PULSE 78; RESP 18; TEMP 36.8; O2SAT 95; BMI 26.4
--- NOTE | 2023-03-20 16:38 | EX.ED.DYSGE1 ---
HPI History of Present Illness Chief Complaint: Abn Labs Detail of Chief Complaint: Blood cultures positive for gram-negative rods Informant: patient, spouse/S.O. and other Onset/Context/Timing Onset: - (Micro contacted charge nurse and informed us that patient's blood cultures were positive for gram-negative rods) Context: Sudden Onset Timing: Continuous Quality: Bacteremia Maximum Severity: Severe Worsened by: Patient is a 72-year-old male with history of esophageal cancer on chemothe Relieved by: Nothing Associated Symptoms Associated Symptoms: Slight cough Narrative Narrative: Patient is a 72-year-old with history of esophageal cancer who received his last dose of chemo yesterday. He does have type 1 diabetes on insulin pump. He was seen yesterday. After discussion with patient and his oncologist Dr. Francisco Anthony outpatient therapy was elected. Patient was contacted because his blood cultures were positive for gram-negative rods. He states he does not feel any better or any worse than yesterday. Patient denies subjective or objective fever. He denies shaking chills. He denies headache, he denies visual, ocular auditory symptoms. He does have a port left subclavian. He also has a feeding tube. Patient denies vomiting or diarrhea. Patient denies dysuria, frequency, urgency or hematuria. He does endorse slight cough. Prior similar symptoms: Yes Recent Illness/Hospitalization: Yes [facility] Medical History Ambulates with cane Amputation finger Amputation of toe Anemia Anemia of chronic disease Atrial fibrillation Bilateral edema of lower extremity Charcot's joint of foot Chemotherapy adverse reaction Chronic renal failure Coronary artery disease Diabetes mellitus, type II Diabetic foot ulcer associated with diabetes mellitus due to underlying condition Diabetic neuropathy associated with type 2 diabetes mellitus Dialysis AV fistula malfunction Esophageal cancer Esophageal cancer Esophageal cancer Esophageal dysphagia Esophageal stricture Fever Finger osteomyelitis, left Gastric reflux Gastrostomy tube dependent History of steroid therapy HLD (hyperlipidemia) Hyperglycemia due to diabetes mellitus Hypertension Hypertension Hyponatremia Hypoxia Insulin dependent diabetes mellitus Nephropathy, diabetic Neuropathy in diabetes NSTEMI (non-ST elevated myocardial infarction) Obesity Presence of insulin pump Wears dentures Wears glasses Wears hearing aid Home Medications prednisone 2.5 mg tablet 5 mg PO DAILY steriod 05/11/15 [History Last Taken 02/13/23] insulin aspart U-100 100 unit/mL (3 mL) subcutaneous pen (Novolog FlexPen U-100 Insulin aspart) See Protocol subcut CONT DM 02/06/18 [History Last Taken 02/06/18] lactose-reduced food with fiber 0.06 gram-1.5 kcal/mL oral liquid (Jevity 1.5 Victorino) 237 ml feeding tube .COMPLEX NUTRITION 10/16/22 [History Last Taken 02/13/23 21:35] ondansetron 8 mg disintegrating tablet 8 mg PO Q8H PRN nausea and vomiting 30 days #30 tabs 10/17/22 [Rx Last Taken Unknown] nystatin 100,000 unit/mL oral suspension 5 ml PO 4X/DAY MOUTH 10/24/22 [History Last Taken 02/13/23] omeprazole 10 mg capsule,delayed release See Rx Instructions feeding tube DAILY reflux 10/24/22 [History Last Taken 02/13/23] amiodarone 200 mg tablet 200 mg feeding tube DAILY heart #30 tabs 01/21/23 [Rx Last Taken 02/13/23] apixaban 5 mg tablet (Eliquis) 5 mg feeding tube BID #60 tabs 01/21/23 [Rx Last Taken 02/13/23] rosuvastatin 20 mg tablet (Crestor) 20 mg feeding tube QHS cholesterol #1 TAB 01/21/23 [Rx Last Taken 02/13/23] sulfamethoxazole-trimethoprim 1 tab G-tube DAILY antibiotic #1 TAB 01/21/23 [Rx Last Taken 02/13/23] olanzapine 5 mg tablet 5 mg PO BID after chemo 02/14/23 [History Last Taken 02/13/23] tacrolimus 0.5 mg capsule, immediate-release (Prograf) 0.5 mg PO .COMPLEX organ rejection 02/14/23 [History Last Taken 02/13/23] terazosin 5 mg capsule 5 mg PO QHS BP 02/14/23 [History Last Taken 02/13/23] albuterol sulfate 90 mcg/actuation aerosol inhaler (Ventolin HFA) 2 puff inhalation Q4H PRN shortness of breath or wheezing #18 grams 03/03/23 [Rx Last Taken Unknown] bumetanide 1 mg tablet 0.5 mg PO BID 03/03/23 [History Last Taken Unknown] metoprolol tartrate 25 mg tablet 25 mg PO BID #60 tabs 03/19/23 [Rx Last Taken Unknown] Allergy/AdvReac Type Severity Reaction Status Date / Time diphenhydramine AdvReac Mild jittery/ Verified 03/20/23 16:19 [From Benadryl] anxious Family History Mother Kidney disease Hypertension High cholesterol Diabetes Father Kidney disease Hypertension High cholesterol Diabetes Surgical History Amputation of foot Hx of kidney transplant Hx of surgical amputation of finger Insulin pump status Renal transplant recipient Renal transplant recipient Social History household members: spouse, family and children Smoking Status: Former smoker how long ago did patient quit smoking: Quit~ 50 years prior smoked youth until quit 2 ppd. alcohol intake: former details: Drank heavily in youth, stopped ~ 50 years prior. substance use type: does not use what type of physical activity do you participate in: walking ROS ROS ED Constitutional Constitutional ED: Reports weight loss; Denies chills, fever(s), subjective or sweats Eyes Eyes: Denies blurry vision, change in vision or diplopia ENT ENT ED: Denies ear pain, rhinorrhea or sore throat Cardiovascular Cardiovascular: Denies chest pain, orthopnea, palpitations, paroxysmal nocturnal dyspnea or racing heartbeat Respiratory/Chest Respiratory/Chest: Reports cough and dyspnea; Denies dyspnea on exertion, orthopnea, paroxysmal nocturnal dyspnea or sputum Gastrointestinal Gastrointestinal: Denies abdominal pain, diarrhea, nausea or vomiting Genitourinary Genitourinary ED: Denies dysuria, hematuria or urinary frequency Musculoskeletal Musculoskeletal: Denies arthralgias or myalgias Integumentary Denies rash Neurologic Neurologic: Reports weakness; Denies headache(s) or paresthesias Endocrine Endocrinology: Denies cold intolerance or heat intolerance Hematologic/Lymphatic Hematologic/Lymphatic: Reports systems reviewed and no addt'l complaints, except as documented and other Details: Patient is on Eliquis. He does endorse bruising easily. EXAM Physical Exam Const Vital Signs: 03/20/23 16:19 Temperature 98.2 F Temperature Source Temporal Pulse Rate 78 Respiratory Rate 18 Blood Pressure 130/53 H Blood Pressure Mean 78 Pulse Ox 95 Oxygen Delivery Method Room Air Positive well nourished and well developed Constitutional Narrative: Patient appears ill. He appears pale. General Appearance ED: well developed, NAD and pallor; Negative for cyanotic or diaphoretic HEENT Reports dry mucous membranes HEENT Narrative: Head is atraumatic and normocephalic. Ears are normal. Nares are patent. Posterior pharynx is normal. Uvula is midline. Mouth ED: Yes dry mucous membranes Mouth: dry mucous membranes Eyes PERRL and EOMs intact bilaterally General Eye ED: Yes pale conjunctiva; Negative for scleral icterus Neck no lymphadenopathy, supple and no JVD Neck Narrative: Trachea is midline. Chest Wall inspection of chest normal and palpation of chest normal Chest Narrative: Port noted left subclavian. There is no evidence of cellulitis around the port site. Resp normal respiratory effort and No clear to auscultation bilaterally Auscultation: rales bilateral lower and diminished lung sounds bilateral lower; Negative for rhonchi or wheezes Cardio regular rate, S1 normal heart sound, S2 normal heart sound and no murmurs Rhythm: abnormal rhythm irregularly irregular GI normal to inspection, nondistended, normoactive bowel sounds, non-tender, non-distended and no masses; Negative for hepatosplenomegaly Auscultation: hyperactive bowel sounds Palpation: soft Back/Spine General Back: CVA tenderness Cervical Spine: Negative for cervical spine tenderness Thoracic Spine / Upper Back: Negative for thoracic spinal tenderness Lumbar Spine / Lower Back: Negative for lumbar spinal tenderness Extremity Extremity Narrative: Patient is edema of the lower extremities. Patient has asymmetry of the upper extremities with swelling of his left hand and wrist. He also has parts of his fingers amputated. Neuro oriented x3, CN's II-XII intact bilaterally and no sensory deficits noted Sensorium / Orientation: alert Motor Exam: strength 5/5 throughout Psych mental status grossly normal Skin no rashes or lesions noted, No no wounds and skin turgor normal Skin Narrative: Patient has multiple areas of abrasion with eschar. There is no evidence of cellulitis. General Skin Exam: pallor; Negative for elasticity normal or jaundice MDM MDM MDM Narrative Medical decision making narrative: Records from yesterday reviewed. There appears to be a small infiltrate mid left lower lung field compared to February 14. There is improvement of the infiltrates were noted on 14 February. This may be the nidus for his infection. Blood cultures were not repeated since he had positive blood cultures yesterday. Will treat with Rocephin which will cover both gram-positive and gram-negative organisms. He was not treated with antibiotics for atypical pneumonia. Chest x-ray was repeated to see if there is a difference in the lung parenchyma compared to yesterday. Blood work was repeated. Patient was informed that he will require admission. History & Record Review Additional record(s) reviewed:: Prior outpatient record, Prior ED visit and Prior labs Lab Data Attestation: I reviewed the patient's lab results. Lab results narrative: White count is normal with a shift of 94% segs. There is no bandemia. H&H is 9.1 and 30.9. PT is slightly elevated 18.3. INR and PTT are normal. Electrolyte panel is remarked and elevated BUN to creatinine ratio of 38:1. Glucose is 127 with normal CO2 anion gap. Lactate is normal at 1.7. Transaminases are normal. Albumin is 2. Labs: Laboratory Results - last 24 hr 03/20/23 16:47 WBC 6.9 RBC 3.45 L Hgb 9.1 L Hct 30.9 L MCV 89.6 MCH 26.4 L MCHC 29.4 L RDW Std Deviation 63.4 H RDW Coeff of Ayaka 20.0 H Plt Count 138 L MPV 9.9 Immature Gran % (Auto) 0.600 Neut % (Auto) 94.0 H Lymph % (Auto) 3.3 L Bennett % (Auto) 2.0 Eos % (Auto) 0.0 Baso % (Auto) 0.1 Absolute Neuts (auto) 6.5 Absolute Lymphs (auto) 0.23 L Nucleated RBC % 0 PT 18.3 H INR 1.5 APTT 29.3 Sodium 138 Potassium 4.4 Chloride 103 Carbon Dioxide 32.0 Anion Gap 3 L BUN 38 H Creatinine 1.14 Estim Creat Clear Calc 62.26 Est GFR (MDRD) Af Amer 82 Est GFR (MDRD) Non-Af 67 BUN/Creatinine Ratio 33.3 H Glucose 127 H Lactic Acid 1.7 Calcium 8.8 Total Bilirubin 0.40 AST 19 ALT 17 Alkaline Phosphatase 66 Total Protein 5.4 L Albumin 2.0 L Globulin 3.4 Albumin/Globulin Ratio 0.6 L Radiography Chest X-Ray - ED: 2 View and Read by ED Physician (Independently reviewed interpreted at 1713. There is increased interstitial markings left lower lobe compared to yesterday's film. Cardiac silhouette is unremarkable. Cardiac size is unremarkable. There is no change in the mediastinum. Osseous structures are unremarkable. Patient is noted to h) Diagnostic Testing: Clinical Impression(s) from Imaging Studies Chest X-Ray 03/20/23 17:00 IMPRESSION: Stable bilateral patchy airspace opacities compatible with multifocal pneumonia. Electronically Signed: Orion Torres MD at 17:18 EST , Management Discussion w/another healthcare provider: Hospitalist (Dr. Lorna Steinberg was made aware the patient. Admit MedSur full) and Cinder Dump Crane Operator (Patient's oncologist Dr. Francisco thapa she was made aware of patient's findings.) Discharge Plan Triage Chief Complaint: Abn Labs ED Provider: Earl Paniagua Dx/Rx/DC Orders Clinical Impression: Bacteremia due to Gram-negative bacteria, Esophageal cancer, Coronary artery disease, Atrial fibrillation, Bilateral pulmonary infiltrates, Chronic hypoxemic respiratory failure, Type 1 diabetes, Anemia due to antineoplastic chemotherapy, Anticoagulant long-term use Prescriptions: No Action metoprolol tartrate 25 mg tablet 25 mg PO BID Qty: 60 11RF Rx Instructions: 1 tablet via G-tube twice daily bumetanide 1 mg tablet 0.5 mg PO BID albuterol sulfate [Ventolin HFA] 90 mcg/actuation HFA aerosol inhaler 2 puff inhalation Q4H PRN (Reason: shortness of breath or wheezing) Qty: 18 6RF prednisone 2.5 MG tablet 5 mg PO DAILY Patient Comments: STEROID insulin aspart U-100 [Novolog FlexPen U-100 Insulin] 100 UNITS/ML insulin pen See Protocol subcut CONT Protocol: 6. Sliding Scale Insulin Custom Condition: mg/dl range Dose/Route: Number of Units Instruction: using insulin pump Protocol Text: Custom Sliding Scale Rx Instructions: insulin pump olanzapine 5 mg tablet 5 mg PO BID Rx Instructions: FOR THREE DAYS AFTER EACH CHEMO tacrolimus [Prograf] 0.5 mg capsule 0.5 mg PO .COMPLEX Rx Instructions: 1mg in AM; 0.5 mg orally qhs; terazosin 5 mg capsule 5 mg PO QHS Jevity 1.5 Victorino 0.06 gram-1.5 kcal/mL liquid 237 ml feeding tube .COMPLEX Patient Comments: 60ML WATER FLUSH BEFORE AND AFTER EACH BOLUS Rx Instructions: 237 mL via feeding tube 0900,1200,1500,1800,2100; ondansetron 8 mg tablet,disintegrating 8 mg PO Q8H PRN (Reason: nausea and vomiting) 30 Days Qty: 30 0RF nystatin 100,000 unit/mL suspension 5 ml PO 4X/DAY Rx Instructions: swish and swallow omeprazole 10 mg capsule,delayed release(DR/EC) See Rx Instructions feeding tube DAILY Rx Instructions: 10ML via feeding tube daily; amiodarone 200 mg tablet 200 mg feeding tube DAILY Qty: 30 11RF rosuvastatin [Crestor] 20 MG tablet 20 mg feeding tube QHS Qty: 1 0RF Patient Comments: decrease cholesterol Eliquis 5 mg tablet 5 mg feeding tube BID Qty: 60 11RF sulfamethoxazole-trimethoprim 1 tab G-tube DAILY Qty: 1 0RF Rx Instructions: 1 tablet daily on m , thursday, thursday Primary Care Provider: Mikayla Lopez Referrals: Mikayla Lopez MD [Primary Care Provider] - Disposition Disposition: Home, Self Care
[2023-03-20] MEDS: Ceftriaxone 2 GM in 0.9% Normal Saline (50mL MB+) 50 ML IV (16:55)
[2023-03-20 16:56] LABS: Absolute Lymphocyte Count 0.23 X10^3/uL (0.83-4.51); Absolute Neutrophil Count 6.5 X10^3/uL (2.0-7.7); Basophil# 0.01 X10^3/uL; Basophil% 0.1 % (0-1); Hematocrit 30.9 % (40-54); Hemoglobin 9.1 g/dL (13.0-16.5); Lymphocyte # 0.23 X10^3/ul (0.83-4.51); Lymphocyte % 3.3 % (19-41); Mean Corp Hgb Conc 29.4 g/dL (32-36); Mean Corpuscular Hgb 26.4 pg (27.0-32.0); Mean Corpuscular Volume 89.6 fL (80-94); Mean Platelet Vol. 9.9 fl (6.2-12.0); Monocyte# 0.14 X10^3/uL; NRBC Flagged by Analyzer 0 % (0-5); Neutrophil # 6.47 X10^3/uL (2.7-7.7); POSITIVE DIFFERENTIAL YES; Platelet Count 138 K/mm3 (150-450); RBC Distribution Width SD 63.4 fl (35.1-43.9); Red Blood Count 3.45 M/mm3 (4.6-6.2); White Blood Count 6.9 K/mm3 (4.4-11.0)
--- NOTE | 2023-03-20 17:00 | RAD_ITS ---
INDICATION: Cough, EXAMINATION/TECHNIQUE: X-RAY - XR Chest 2 Views COMPARISON: 03/19/2023 FINDINGS: LINES/DEVICES: Left chest wall infusion port terminates in the mid SVC. LUNGS: The lungs are well expanded. Bilateral patchy airspace opacities appear similar to prior. MEDIASTINUM AND CARDIOVASCULAR STRUCTURES: Cardiac silhouette not enlarged. Central airways and mediastinal contour are unremarkable. BONES AND SOFT TISSUES: Unremarkable. RAD/Chest PA and Lateral IMPRESSION: Stable bilateral patchy airspace opacities compatible with multifocal pneumonia. Electronically Signed: Orion Torres MD at 17:18 EST ,
[2023-03-20 17:16] LABS: ALB/GLOB Ratio 0.6 RATIO (0.9-2.4); AST(SGOT) 19 U/L (15-37); Alanine Aminotransfer ALT/SGPT 17 U/L (16-61); Alkaline Phosphatase 66 U/L (45-117); Anion Gap 3 (5-15); BUN 38 mg/dL (7-18); BUN/Creat Ratio 33.3 RATIO (10-20); Calcium,Total 8.8 mg/dL (8.5-10.1); Chloride 103 mmol/L (98-107); Creatinine, Serum 1.14 mg/dL (0.70-1.30); EST Glomerular Filtration Rate 67 mL/min (>60); Est Glom Filt Rate - Afr Amer 82 mL/min (>60); Estimated Creatinine Clearance 62.26 ml/min; Globulin 3.4 g/dL (2.2-4.2); Glucose 127 mg/dL (74-106); Potassium 4.4 mmol/L (3.5-5.1); Protein, Total 5.4 g/dL (6.4-8.2); Sodium Level 138 mmol/L (136-145)
[2023-03-20 17:19] LABS: Lactic Acid 1.7 mmol/L (0.4-1.9)
[2023-03-20 17:22] LABS: Differential Indicated SCAN CRITERIA MET
[2023-03-20 17:24] LABS: International Normalized Ratio 1.5; Prothrombin Time (Protime)PT. 18.3 SECONDS (11.7-14.9)
[2023-03-20 17:25] LABS: Partial Thromboplast Time 29.3 Seconds (24.1-36.2)
[2023-03-20 17:37] LABS: Differential Comment SCANNED
--- NOTE | 2023-03-20 17:47 | NURSING ---
MED SURG NICKI GRAM NEGATIVE BACTEREMIA, BILATERAL PNEUMONIA
--- NOTE | 2023-03-20 17:48 | PCM.HP.STD ---
HPI - General General Date of Admission: 03/20/23 Date of Service: 03/20/23 Chief Complaint: weakness HPI Narrative MAHAD SULLIVAN, is a 72 M who presented initially to [facility] on 03/19/2023 complaining of weakness and fatigue that was worsening in the last 48 hours prior to presenting. Patient has a history of esophageal cancer and is on chemotherapy with Dr. Anthony. He has type 1 diabetes and has an insulin pump to control this and he also has a PEG tube for tube feeds. He states typically does quite well and has some baseline fatigue related to his chemo however his fatigue is much more severe than typical for him. He denies having any fever or chills. He has a cough that is chronic with chronic sputum production but is no different than previous. He denies any dysuria or frequency and stated that really his only complaint was overall overwhelming fatigue and generalized weakness. He was evaluated in the emergency department and his lactic acid was up so a blood culture was obtained but this was the only abnormal finding at the time so the case was discussed with his oncologist after he got some IV fluids. He did feel that he was improved slightly and he was discharged home per his preference. Blood cultures were drawn prior to discharge and he was called today as his blood cultures were found to be positive with gram-negative rods. He states he still feels generalized weakness and tired. He has no new symptoms when compared to yesterday when he presents emergency department but given his history of esophageal cancer and positive blood cultures being immunosuppressed on chemotherapy he will need to be admitted and potentially have his Mediport evaluated. Both of the cultures appear to have been drawn off of his port. Vital signs on presentation showed temperature of 98.2, blood pressure is 130/58, pulse is 78, respiratory rate is 18 and oxygen saturations were 95% on room air. His CBC shows a normal white count with a chronic stable anemia having a hemoglobin of 9.1 and thrombocytopenia with a platelet count of 138,000 which is chronic as well however, he does have a marked left shift with a 94% neutrophilia. His coags are abnormal however he is on Eliquis. His chemistry panel is overall unchanged when compared to previous and electrolytes are normal. Lactic acid yesterday was 3.0 but on repeat today is 1.7. His liver functions are unremarkable. Total albumin is 2.0. Chest x-ray shows stable bilateral patchy airspace opacities compared with multifocal pneumonia. EKG is unremarkable. Blood cultures from yesterday were reviewed and 1 culture is noted thus far and was positive for gram no acute of rods that are lactose clinical nursing professor drawn off of his port. Again, it appears that both cultures were drawn off of his port yesterday. [facility] Medical History Ambulates with cane Amputation finger Amputation of toe Anemia Anemia of chronic disease Atrial fibrillation Bilateral edema of lower extremity Charcot's joint of foot Chemotherapy adverse reaction Chronic renal failure Coronary artery disease Diabetes mellitus, type II Diabetic foot ulcer associated with diabetes mellitus due to underlying condition Diabetic neuropathy associated with type 2 diabetes mellitus Dialysis AV fistula malfunction Esophageal cancer Esophageal cancer Esophageal cancer Esophageal dysphagia Esophageal stricture Fever Finger osteomyelitis, left Gastric reflux Gastrostomy tube dependent History of steroid therapy HLD (hyperlipidemia) Hyperglycemia due to diabetes mellitus Hypertension Hypertension Hyponatremia Hypoxia Insulin dependent diabetes mellitus Nephropathy, diabetic Neuropathy in diabetes NSTEMI (non-ST elevated myocardial infarction) Obesity Presence of insulin pump Wears dentures Wears glasses Wears hearing aid Home Medications prednisone 2.5 mg tablet 5 mg PO DAILY steriod 05/11/15 [History Last Taken 03/20/23] insulin aspart U-100 100 unit/mL (3 mL) subcutaneous pen (Novolog FlexPen U-100 Insulin aspart) See Protocol subcut CONT DM 02/06/18 [History Last Taken 03/20/23] lactose-reduced food with fiber 0.06 gram-1.5 kcal/mL oral liquid (Jevity 1.5 Victorino) 237 ml feeding tube .COMPLEX NUTRITION 10/16/22 [History Last Taken 03/20/23] ondansetron 8 mg disintegrating tablet 8 mg PO Q8H PRN nausea and vomiting 30 days #30 tabs 10/17/22 [Rx Last Taken Unknown] nystatin 100,000 unit/mL oral suspension 5 ml PO 4X/DAY MOUTH 10/24/22 [History Last Taken 03/20/23] omeprazole 10 mg capsule,delayed release See Rx Instructions feeding tube DAILY reflux 10/24/22 [History Last Taken 03/20/23] amiodarone 200 mg tablet 200 mg feeding tube DAILY heart #30 tabs 01/21/23 [Rx Last Taken 03/20/23] apixaban 5 mg tablet (Eliquis) 5 mg feeding tube BID #60 tabs 01/21/23 [Rx Last Taken 03/20/23] rosuvastatin 20 mg tablet (Crestor) 20 mg feeding tube QHS cholesterol #1 TAB 01/21/23 [Rx Last Taken 03/19/23] sulfamethoxazole-trimethoprim 1 tab G-tube DAILY antibiotic #1 TAB 01/21/23 [Rx Last Taken 03/20/23] olanzapine 5 mg tablet 5 mg PO BID after chemo 02/14/23 [History Last Taken 03/20/23] tacrolimus 0.5 mg capsule, immediate-release (Prograf) 0.5 mg PO .COMPLEX organ rejection 02/14/23 [History Last Taken 03/20/23] terazosin 5 mg capsule 5 mg PO QHS BP 02/14/23 [History Last Taken 03/19/23] albuterol sulfate 90 mcg/actuation aerosol inhaler (Ventolin HFA) 2 puff inhalation Q4H PRN shortness of breath or wheezing #18 grams 03/03/23 [Rx Last Taken Unknown] bumetanide 1 mg tablet 0.5 mg PO DAILY 03/03/23 [History Last Taken 03/20/23] metoprolol tartrate 25 mg tablet 25 mg PO BID #60 tabs 03/19/23 [Rx Last Taken 03/20/23] dexamethasone 4 mg tablet 4 mg PO BID 03/20/23 [History Last Taken 03/20/23] Allergy/AdvReac Type Severity Reaction Status Date / Time diphenhydramine AdvReac Mild jittery/ Verified 03/20/23 16:19 [From Benbrisal] anxious Family History Mother Kidney disease Hypertension High cholesterol Diabetes Father Kidney disease Hypertension High cholesterol Diabetes Surgical History Amputation of foot Hx of kidney transplant Hx of surgical amputation of finger Insulin pump status Renal transplant recipient Renal transplant recipient Social History household members: spouse, family and children Smoking Status: Former smoker how long ago did patient quit smoking: Quit~ 50 years prior smoked youth until quit 2 ppd. alcohol intake: former details: Drank heavily in youth, stopped ~ 50 years prior. substance use type: does not use what type of physical activity do you participate in: walking ROS Constitutional Constitutional: Reports fatigue, malaise and weakness; Denies anorexia, change in weight, chills, fever(s), night sweats or other Eyes Eyes: Denies blurry vision, change in eye color, change in vision, discharge from eye(s), double vision, erythema, eye pain, loss of vision or other ENT HEENT: Denies abnormal hearing, dysphagia, ear pain, epistaxis, headache(s), hearing loss, nasal congestion, nasal discharge, post nasal drip, sinus pressure, sore throat or other Cardiovascular Cardiovascular: Denies chest pain, claudication, dyspnea on exertion, edema, lightheadedness, orthopnea, palpitations, paroxysmal nocturnal dyspnea, rapid heart rate, syncope or other Respiratory/Chest Respiratory/Chest: Reports cough, dyspnea and shortness of breath with exertion; Denies excessive phlegm production, hemoptysis, productive cough, shortness of breath at rest, wheezing or other Gastrointestinal Gastrointestinal: Reports other Details: Patient's enteral feeds are via tube feed ; Denies abdominal pain, coffee ground emesis, constipation, diarrhea, dyspepsia, hematemesis, hematochezia, loose stools, melena, nausea or vomiting Musculoskeletal Musculoskeletal: Denies arthralgias, back pain, joint pain, joint stiffness, joint swelling, myalgias, neck pain or other Neurologic Neurologic: Denies abnormal gait, abnormal speech, confusion, disequilibrium, dizziness, focal weakness, headache(s), numbness, paresthesias, seizure-like activity, seizures, syncope, tingling, tremor(s) or other Psychiatric Psychiatric: Denies anxiety, depression, homicidal ideation, suicidal ideation or other Endocrine Endocrinology: Denies change in body appearance, cold intolerance, excessive sweating, heat intolerance, polydipsia, polyuria or other Hematologic/Lymphatic Hematologic/Lymphatic: Denies anemia, easy bleeding, easy bruising, lymphadenopathy or other Allergic/Immunologic Allergic/Immunologic: Denies rhinitis, hives, eczemia, asthma or other Vital Signs Vital Signs Vital Signs: 03/20/23 16:19 Temperature 98.2 F Temperature Source Temporal Pulse Rate 78 Respiratory Rate 18 Blood Pressure 130/53 H Blood Pressure Mean 78 Pulse Ox 95 Oxygen Delivery Method Room Air Weight Weight: 84.822 kg Body Mass Index (BMI) 26.4 Physical Exam Const alert, oriented x3, no apparent distress, average body habitus and well nourished Constitutional Narrative: Very pleasant, older, white male, appears older than stated age, very pleasant, nontoxic, at bedside, appears mildly fatigued but no significant signs of severe illness General Appearance: cooperative HEENT normocephalic, head/scalp atraumatic and moist oral mucous membranes HEENT Narrative: Dentures in place, Mallampati 2, mild thrush noted on exam, mild hearing loss Eyes PERRL and EOMs intact bilaterally; Negative for conjunctivae normal Eyes Narrative: Mild conjunctival pallor bilaterally, no scleral icterus Neck no lymphadenopathy and supple Neck Narrative: Trachea midline, no thyroid enlargement Resp normal respiratory effort, no retractions, no use of accessory muscles and No clear to auscultation bilaterally Resp Narrative: Crackles noted in right lung base and apex, left lung is fairly clear Auscultation: crackles; Negative for rhonchi or wheezes Cardio regular rate, regular rhythm, S1 normal heart sound, S2 normal heart sound, no murmurs, no rub, no gallops and no clicks GI normal to inspection, nondistended, normoactive bowel sounds, soft to palpation and non-tender GI Narrative: PEG tube in place and is clean dry and intact with no signs of infection Extremity no clubbing, cyanosis or edema Extremity Narrative: Patient with a right transmetatarsal amputation, left hand third digit amputation Skin Skin Narrative: Fistula noted in left upper extremity, Mediport in place but no signs of infection currently accessed Neuro oriented x3, CN's II-XII intact bilaterally, moves all extremities and no focal motor deficits Speech: speech normal Psych affect normal Psych Narrative: Extremely pleasant, patient interacts appropriately Results Lab / Micro Data 03/20/23 16:47 03/20/23 16:47 Labs: Laboratory Results - last 24 hr 03/20/23 16:47: WBC 6.9, RBC 3.45 L, Hgb 9.1 L, Hct 30.9 L, MCV 89.6, MCH 26.4 L, MCHC 29.4 L, RDW Std Deviation 63.4 H, RDW Coeff of Ayaka 20.0 H, Plt Count 138 L, MPV 9.9, Immature Gran % (Auto) 0.600, Neut % (Auto) 94.0 H, Lymph % (Auto) 3.3 L, Clarion % (Auto) 2.0, Eos % (Auto) 0.0, Baso % (Auto) 0.1, Absolute Neuts (auto) 6.5, Absolute Lymphs (auto) 0.23 L, Nucleated RBC % 0, Differential Comment SCANNED, PT 18.3 H, INR 1.5, APTT 29.3, Sodium 138, Potassium 4.4, Chloride 103, Carbon Dioxide 32.0, Anion Gap 3 L, BUN 38 H, Creatinine 1.14, Estim Creat Clear Calc 62.26, Est GFR (MDRD) Af Amer 82, Est GFR (MDRD) Non-Af 67, BUN/Creatinine Ratio 33.3 H, Glucose 127 H, Lactic Acid 1.7, Calcium 8.8, Total Bilirubin 0.40, AST 19, ALT 17, Alkaline Phosphatase 66, Total Protein 5.4 L, Albumin 2.0 L, Globulin 3.4, Albumin/Globulin Ratio 0.6 L Imagaing Radiology Impression Chest X-Ray 03/20/23 17:00 IMPRESSION: Stable bilateral patchy airspace opacities compatible with multifocal pneumonia. Electronically Signed: Orion Torres MD at 17:18 EST Reading Location ID and State: [facility] / [place] Tel , Service support , Assessment & Plan Assessment/Plan (1) Gram-negative bacteremia: (2) Lactic acidosis: (3) Debility: (4) Generalized weakness: PLAN: Plan Gram-negative svitlana-lactose clinical nursing professor bacteremia -1 of 2 blood cultures are reported and appears they are both off of his port -Will likely need repeat blood cultures to ensure clearance with Mediport being possibly infected -Source is currently unclear however he does appear to have possible pneumonia -Urine culture is pending and done today -Start Zosyn -Check procalcitonin -May need ID input and can consult on Thursday for evaluation on Thursday if need be Lactic acidosis -3.0 yesterday -Resolved today -No further intervention or assessment needed Generalized weakness/debility -Likely related to the above -Should improve with treatment of his infection -PT/OT to evaluate -Case management/social work to assist with discharge planning Esophageal cancer -Patient follows with Dr. 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 Hyperlipidemia -Continue home rosuvastatin with therapeutic substitution Oral thrush -Continue home nystatin Chronic anemia secondary to chronic disease -Counts are stable -Likely related to above Diabetes mellitus -Patient is documented to be a type II and a type I -Is insulin-dependent and on an insulin pump -Patient self boluses with meals and will allow to continue -No need for SSI as patient boluses with his tube feed -Continue Jevity for tube feed CAD/HTN/HPL -Continue home rosuvastatin with therapeutic substitution -Continue home Bumex -Continue home metoprolol PAF -Continue home amiodarone -Continue home Eliquis -Continue home metoprolol GERD -Continue home PPI DVT prophylaxis -Patient is chronically on Eliquis we will continue CODE STATUS -DNR CCA okay for short-term intubation per discussion on admission Charges/Coding Visit Charges Inpatient E&M: 01215 Init Hosp L2
[2023-03-20 18:53] LABS: Procalcitonin 0.13 ng/mL (0.00-0.09)
[2023-03-20 18:56] VITALS: BMI 26.4
[2023-03-20 18:57] VITALS: BP 181/88; PULSE 80; RESP 16; TEMP 36.7; O2SAT 98
[2023-03-20 19:35] VITALS: O2SAT 95
[2023-03-20] MEDS: 0.9% Normal Saline (1000mL) 1,000 ML 100 ML IV (20:24)
[2023-03-20] MEDS: 0.9 % NaCl (Sterile) Posiflush 10 mL IV (20:24)
[2023-03-20 20:35] LABS: Bacteria 0 SEEN /hpf (None Seen); Mucous, Urine 0 SEEN /hpf (<or=2+)
[2023-03-20 20:36] LABS: Color, Urine Yellow (Yellow); Glucose, Dipstick Normal (Normal); Ketone-Dipstick Negative (Negative); Leukocyte Esterase-Dipstick 25 /ul (Negative); Nitrite-Dipstick Negative (Negative); Occult Blood-Urine Negative /ul (Negative); Protein-Dipstick 15 mg/dl (Negative); Urine Bilirubin Dipstick Negative (Negative); Urine Clarity Clear (Clear); Urine Urobilinogen 4 mg/dl (Normal)
[2023-03-20 20:43] LABS: Red Blood Cells-Urine 0 SEEN /hpf (0-5); Squamous Epithelial Cells - UA 5-10 SEEN /hpf (0-5); White Blood Cells 0-5 SEEN /hpf (0-5)
[2023-03-20 22:15] VITALS: O2SAT 88
[2023-03-20 22:20] VITALS: BP 156/80; PULSE 87; RESP 18; TEMP 36.6; O2SAT 94
--- NOTE | 2023-03-20 22:27 | NURSING ---
blood sugar is 123 via pt's own device
[2023-03-20] MEDS: NYSTATIN 500,000 UNIT/5 ML UDC 500000 UNIT PO (22:28)
[2023-03-20 22:29] VITALS: BP 156/80; PULSE 87
[2023-03-20] MEDS: APIXABAN 5 MG TABLET GT (22:29)
[2023-03-20] MEDS: Doxazosin 4 MG Tablet GT (22:29)
[2023-03-20] MEDS: Atorvastatin Calcium 40 MG Tablet GT (22:29)
[2023-03-20] MEDS: Metoprolol Tartrate 25 MG Tablet GT (22:29)
[2023-03-20] MEDS: Tacrolimus 0.5 MG Capsule GT (22:29)
[2023-03-20] MEDS: Piperacil/Tazobactam 3.375 GM in 0.9% Normal Saline (50mL MB+) 50 ML IV (22:30)
[2023-03-20] MEDS: Jevity 1.5. 1,000 ML Bottle 237 ML GT (22:42)
[2023-03-20 23:35] LABS: Bedside Glucose 122 mg/dL (74-106)
[2023-03-21] VITALS (9 sets, daily range): BP systolic 122–142; BP diastolic 55–77; PULSE 69–110; RESP 14–20; TEMP 36.3–36.7; O2SAT 90–97; BMI 26.4
[2023-03-21] MEDS: Piperacil/Tazobactam 3.375 GM in 0.9% Normal Saline (50mL MB+) 50 ML IV ×3 (05:39→22:00)
[2023-03-21 06:38] LABS: Absolute Lymphocyte Count 0.34 X10^3/uL (0.83-4.51); Absolute Neutrophil Count 3.1 X10^3/uL (2.0-7.7); Basophil# 0.01 X10^3/uL; Basophil% 0.3 % (0-1); Lymphocyte # 0.34 X10^3/ul (0.83-4.51); Lymphocyte % 9.4 % (19-41); Mean Corpuscular Hgb 26.2 pg (27.0-32.0); Mean Corpuscular Volume 87.5 fL (80-94); Mean Platelet Vol. 9.5 fl (6.2-12.0); Monocyte# 0.19 X10^3/uL; Monocyte% 5.2 % (0-10); NRBC Flagged by Analyzer 0 % (0-5); Neutrophil # 3.06 X10^3/uL (2.7-7.7); Neutrophil % 84.5 % (47-70); POSITIVE DIFFERENTIAL YES; Platelet Count 119 K/mm3 (150-450); RBC Distribution Width CV 19.5 % (11.6-14.6); RBC Distribution Width SD 61.7 fl (35.1-43.9); Red Blood Count 3.43 M/mm3 (4.6-6.2); White Blood Count 3.6 K/mm3 (4.4-11.0)
[2023-03-21 06:44] LABS: Differential Indicated SCAN CRITERIA MET
[2023-03-21 07:03] LABS: Differential Comment SCANNED
[2023-03-21 07:07] LABS: ALB/GLOB Ratio 0.6 RATIO (0.9-2.4); AST(SGOT) 17 U/L (15-37); Alanine Aminotransfer ALT/SGPT 16 U/L (16-61); Albumin, Serum 1.9 g/dL (3.2-5.0); Alkaline Phosphatase 62 U/L (45-117); Anion Gap 3 (5-15); BUN 30 mg/dL (7-18); BUN/Creat Ratio 33.6 RATIO (10-20); Calcium,Total 8.9 mg/dL (8.5-10.1); Chloride 106 mmol/L (98-107); Creatinine, Serum 0.89 mg/dL (0.70-1.30); EST Glomerular Filtration Rate 89 mL/min (>60); Est Glom Filt Rate - Afr Amer 108 mL/min (>60); Estimated Creatinine Clearance 79.74 ml/min; Globulin 3.3 g/dL (2.2-4.2); Glucose 130 mg/dL (74-106); Magnesium 2.3 mg/dL (1.6-2.6); Phosphorus 2.9 mg/dL (2.5-4.9); Potassium 4.3 mmol/L (3.5-5.1); Protein, Total 5.2 g/dL (6.4-8.2); Sodium Level 138 mmol/L (136-145)
[2023-03-21] MEDS: Ipratropium/Albuterol Sulfate 3 ML AMPUL.NEB INHALATION ×3 (07:42→19:23)
--- NOTE | 2023-03-21 07:42 | PN.HOSP_ITS ---
Reason for Visit Reason for Visit: Diagnoses Acidosis, unspecified (03/20/23) Weakness (03/20/23) Other malaise (03/20/23) Bacteremia (03/20/23) Subjective Subjective Is feeling better today now that he is on antibiotics, beginning to feel stronge r Objective Data Objective Data Vital Signs: Vital Signs Temp Pulse Resp BP Pulse Ox O2 Del Method O2 Flow Rate 98.1 F 73 18 142/77 H 93 Nasal Cannula 2 03/21/23 02:41 03/21/23 02:41 03/21/23 02:41 03/21/23 02:41 03/21/23 02:41 03/21/23 02:44 03/21/23 02:44 Oxygen Flow Rate (L/min) 2 Oxygen Delivery Method Nasal Cannula Weight: 83.64 kg Body Mass Index (BMI) 26.4 Intake & Output: Intake and Output for Last 24 Hours 03/19/23 03/20/23 03/21/23 23:59 23:59 23:59 Intake Total 250 / 250 1050 / 1050 Balance 250 / 250 1050 / 1050 Lab / Micro Data 03/21/23 06:04 03/21/23 06:04 Labs: Laboratory Results - last 24 hr 03/20/23 16:47: WBC 6.9, RBC 3.45 L, Hgb 9.1 L, Hct 30.9 L, MCV 89.6, MCH 26.4 L , MCHC 29.4 L, RDW Std Deviation 63.4 H, RDW Coeff of Ayaka 20.0 H, Plt Count 138 L, MPV 9.9, Immature Gran % (Auto) 0.600, Neut % (Auto) 94.0 H, Lymph % (Auto) 3.3 L, Clark % (Auto) 2.0, Eos % (Auto) 0.0, Baso % (Auto) 0.1, Absolute Neuts (auto) 6.5, Absolute Lymphs (auto) 0.23 L, Nucleated RBC % 0, Differential Comment SCANNED, PT 18.3 H, INR 1.5, APTT 29.3, Sodium 138, Potassium 4.4, Chloride 103, Carbon Dioxide 32.0, Anion Gap 3 L, BUN 38 H, Creatinine 1.14, Estim Creat Clear Calc 62.26, Est GFR (MDRD) Af Amer 82, Est GFR (MDRD) Non-Af 67, BUN/Creatinine Ratio 33.3 H, Glucose 127 H, Lactic Acid 1.7, Calcium 8.8, Total Bilirubin 0.40, AST 19, ALT 17, Alkaline Phosphatase 66, Total Protein 5.4 L, Albumin 2.0 L, Globulin 3.4, Albumin/Globulin Ratio 0.6 L 03/20/23 18:20: Procalcitonin 0.13 H 03/20/23 20:24: Urine Color Yellow, Urine Clarity Clear, Urine pH 8.0, Ur Specific Wittman 1.010, Urine Protein 15 H, Urine Glucose (UA) Normal, Urine Ketones Negative, Urine Occult Blood Negative, Urine Nitrite Negative, Urine Bilirubin Negative, Urine Urobilinogen 4 H, Ur Leukocyte Esterase 25 H, Urine RBC 0 SEEN, Urine WBC 0-5 SEEN, Ur Squamous Epith Cells 5-10 SEEN, Urine Bacteria 0 SEEN, Urine Mucus 0 SEEN 03/20/23 22:40: POC Glucose 122 H 03/21/23 06:04: WBC 3.6 L, RBC 3.43 L, Hgb 9.0 L, Hct 30.0 L, MCV 87.5, MCH 26.2 L, MCHC 30.0 L, RDW Std Deviation 61.7 H, RDW Coeff of Ayaka 19.5 H, Plt Count 119 L, MPV 9.5, Immature Gran % (Auto) 0.600, Neut % (Auto) 84.5 H, Lymph % (Auto) 9.4 L, Clark % (Auto) 5.2, Eos % (Auto) 0.0, Baso % (Auto) 0.3, Absolute Neuts (auto) 3.1, Absolute Lymphs (auto) 0.34 L, Nucleated RBC % 0, Differential Comment SCANNED, Diff Path Review June, Sodium 138, Potassium 4.3, Chloride 106, Carbon Dioxide 29.0, Anion Gap 3 L, BUN 30 H, Creatinine 0.89, Estim Creat Clear Calc 79.74, Est GFR (MDRD) Af Amer 108, Est GFR (MDRD) Non-Af 89, BUN/Creatinine Ratio 33.6 H, Glucose 130 H, Calcium 8.9, Phosphorus 2.9, Magnesium 2.3, Total Bilirubin 0.40, AST 17, ALT 16, Alkaline Phosphatase 62, Total Protein 5.2 L, Albumin 1.9 L, Globulin 3.3, Albumin/Globulin Ratio 0.6 L Micro: Microbiology 03/20/23 19:35 Mucosa - Nasopharyngeal Respiratory Panel (PCR) - Final 03/20/23 20:24 Urine, Clean Catch Legionella Antigen - Final 03/20/23 20:24 Urine, Clean Catch Streptococcus pneumoniae Antigen (M - Final 03/20/23 19:35 Mucosa - Nasopharyngeal SARS-CoV-2, Influenza & RSV (PCR) - Final Radiography Diagnostic Testing: Radiology Impression Chest X-Ray 03/20/23 17:00 IMPRESSION: Stable bilateral patchy airspace opacities compatible with multifocal pneumonia. Electronically Signed: Orion Torres MD at 17:18 EST , Physical Exam Narrative General: Alert, oriented, no apparent distress HEENT: Atraumatic, normocephalic Eyes: Anicteric, normal conjunctiva, extraocular movements grossly intact Neck: Supple Respiratory: Clear to auscultation bilaterally, normal respiratory effort Cardiovascular: Regular rate GI: Soft, nontender, nondistended Extremities: No edema Musculoskeletal: Moving all extremities Neuro: No overt focal neurological deficits Skin: No rashes appreciated Psych: Cooperative Assessment & Plan Assessment/Plan (1) Gram-negative bacteremia: (2) Lactic acidosis: (3) Debility: (4) Generalized weakness: PLAN: Ambrose MAHAD SULLIVAN, is a 72 M who presented initially to [facility] on 03/19/2023 complaining of weakness and fatigue that was worsening in the last 48 hours prior to presenting. Patient has a history of esophageal cancer and is on chemotherapy with Dr. nAthony. He has type 1 diabetes and has an insulin pump to control this and he also has a PEG tube for tube feeds. He states typically does quite well and has some baseline fatigue related to his chemo however his fatigue is much more severe than typical for him. He was evaluated in the emergency department and his lactic acid was up so a blood culture was obtained but this was the only abnormal finding at the time so the case was discussed with his oncologist after he got some IV fluids. He did feel that he was improved slightly and he was discharged home per his preference. Blood cultures were drawn prior to discharge and he was called as his blood cultures were found to be positive with gram-negative rods. He was still feeling generally weak and tired. Hospitalist contacted for admission. Gram-negative svitlana-lactose order planner bacteremia -1 of 2 blood cultures are reported and appears they are both off of his port -Will likely need repeat blood cultures to ensure clearance with Mediport being possibly infected -Source is currently unclear however he does appear to have possible pneumonia -Urine culture is pending and done today -Start Zosyn -Check procalcitonin -May need ID input and can consult on Thursday for evaluation on Thursday if need be -03/21: Sputum culture pending still 1 out of 2 blood cultures positive, awaiting speciation, will repeat cultures 1 through port 1 through periphery and continue Zosyn, ucx pending Pancytopenia -Likely 2/2 chemo -Continue to monitor levels Lactic acidosis- RESOLVED -3.0 yesterday -Resolved today -No further intervention or assessment needed Generalized weakness/debility -Likely related to the above -Should improve with treatment of his infection -PT/OT to evaluate -Case management/social work to assist with discharge planning -03/21: PT/OT Esophageal cancer -Patient follows with Dr. 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 Hyperlipidemia -Continue home rosuvastatin with therapeutic substitution Oral thrush -Continue home nystatin Chronic anemia secondary to chronic disease -Counts are stable -Likely related to above Diabetes mellitus -Patient is documented to be a type II and a type I -Is insulin-dependent and on an insulin pump -Patient self boluses with meals and will allow to continue -No need for SSI as patient boluses with his tube feed -Continue Jevity for tube feed -03/21: CAD/HTN/HPL -Continue home rosuvastatin with therapeutic substitution -Continue home Bumex -Continue home metoprolol PAF -Continue home amiodarone -Continue home Eliquis -Continue home metoprolol GERD -Continue home PPI DVT prophylaxis -Patient is chronically on Eliquis we will continue CODE STATUS -DNR CCA okay for short-term intubation per discussion on admission Time spent in the patient's overall evaluation,decision-making process, review of diagnostic data, adjustment of management, discussion with other providers, nursing nursing and ancillary staff involved in patient's care documentation, 35 minutes Charges/Coding Visit Charges Inpatient E&M: 78535 Subs Hosp L2
[2023-03-21] MEDS: APIXABAN 5 MG TABLET GT ×2 (08:30→22:04)
[2023-03-21] MEDS: Amiodarone 200 MG Tablet GT (08:30)
[2023-03-21] MEDS: Bumetanide 2 MG Tablet 0.5 MG GT (08:31)
[2023-03-21] MEDS: Metoprolol Tartrate 25 MG Tablet GT ×2 (08:31→22:02)
[2023-03-21] MEDS: NYSTATIN 500,000 UNIT/5 ML UDC 500000 UNIT PO ×4 (08:32→22:04)
[2023-03-21] MEDS: Tacrolimus 0.5 MG Capsule 1 MG GT (08:32)
[2023-03-21] MEDS: predniSONE 5 MG Tablet PO (08:40)
[2023-03-21] MEDS: Jevity 1.5. 1,000 ML Bottle 237 ML GT ×5 (08:41→22:00)
[2023-03-21] MEDS: Insulin Basal Pump 1 UNIT SC (08:42)
--- NOTE | 2023-03-21 13:40 | CASEMGMT ---
RN TERI Face to Face with patient for initial transition planning/care coordination assessment. RN CM introduced self and role at [facility]. Patient sitting in chair, alert and oriented, son at bedside. Patient willing to participate in assessment and is able to answer all questions appropriately. Care providers, pharmacy, and demographics verified. Patient wishes to discharge home, will monitor for HHC pending ATBs at discharge. Patient states he has no further needs or concerns at this time. CM to follow for discharge planning needs that may arise. PCP: Lydia Specialists: , endocrinologsi; Gabrielle, oncologist; Eulalia, percolator operator Preferred Pharmacy: [facility] Insurance: [employer] Prescription Benefit: none Living Will/HPOA: yes, Sonia Zuleta LNOK: , children Living Arrangements: Patient lives with in a single story home with no steps to enter. Patient states he is independent at home. Transportation: driving service DME/HHC: Patient has BSC, cane, walker, wheelchair, glucometer with supplies, and home oxygen through [employer] at 2lpm with portability. Patient has had [facility] and [facility] in the past. [facility] is working with patient Disposition Plan: Patient to discharge home with family support and follow-up plans in place. Will follow for possible HHC and IV ATBs Theresa SANTOS, RN, CM
--- NOTE | 2023-03-21 19:53 | NURSING ---
PT CHECKED BLOOD SUGAR AND GAVE BOLUS VIA HIS INSULIN PUMP.
[2023-03-21] MEDS: Atorvastatin Calcium 40 MG Tablet GT (22:03)
[2023-03-21] MEDS: Doxazosin 4 MG Tablet GT (22:03)
[2023-03-21] MEDS: Tacrolimus 0.5 MG Capsule GT (22:03)
--- NOTE | 2023-03-21 23:10 | NURSING ---
BG 212 at 2155 at 03/21/2023 according to patient pump. Patient gave himself 7 units of insulin.
[2023-03-22] VITALS (9 sets, daily range): BP systolic 110–143; BP diastolic 58–69; PULSE 70–96; RESP 14–20; TEMP 36.3–36.8; O2SAT 93–97; BMI 25.8
[2023-03-22] MEDS: Piperacil/Tazobactam 3.375 GM in 0.9% Normal Saline (50mL MB+) 50 ML IV ×3 (05:02→21:59)
[2023-03-22 05:16] LABS: Absolute Lymphocyte Count 0.31 X10^3/uL (0.83-4.51); Absolute Neutrophil Count 3.2 X10^3/uL (2.0-7.7); Basophil# 0.01 X10^3/uL; Basophil% 0.3 % (0-1); Hematocrit 29.8 % (40-54); Hemoglobin 8.9 g/dL (13.0-16.5); Lymphocyte # 0.31 X10^3/ul (0.83-4.51); Lymphocyte % 8.3 % (19-41); Mean Corp Hgb Conc 29.9 g/dL (32-36); Mean Corpuscular Hgb 26.5 pg (27.0-32.0); Mean Corpuscular Volume 88.7 fL (80-94); Mean Platelet Vol. 9.8 fl (6.2-12.0); Monocyte# 0.19 X10^3/uL; Monocyte% 5.1 % (0-10); NRBC Flagged by Analyzer 0.5 % (0-5); Neutrophil # 3.19 X10^3/uL (2.7-7.7); Neutrophil % 85.8 % (47-70); POSITIVE DIFFERENTIAL YES; Platelet Count 114 K/mm3 (150-450); RBC Distribution Width CV 18.8 % (11.6-14.6); RBC Distribution Width SD 59.6 fl (35.1-43.9); Red Blood Count 3.36 M/mm3 (4.6-6.2); White Blood Count 3.7 K/mm3 (4.4-11.0)
[2023-03-22 05:43] LABS: ALB/GLOB Ratio 0.6 RATIO (0.9-2.4); AST(SGOT) 21 U/L (15-37); Alanine Aminotransfer ALT/SGPT 15 U/L (16-61); Albumin, Serum 1.9 g/dL (3.2-5.0); Alkaline Phosphatase 59 U/L (45-117); Anion Gap 3 (5-15); BUN 26 mg/dL (7-18); BUN/Creat Ratio 29.4 RATIO (10-20); Calcium,Total 8.5 mg/dL (8.5-10.1); Chloride 104 mmol/L (98-107); Creatinine, Serum 0.88 mg/dL (0.70-1.30); EST Glomerular Filtration Rate 90 mL/min (>60); Est Glom Filt Rate - Afr Amer 109 mL/min (>60); Estimated Creatinine Clearance 80.65 ml/min; Globulin 3.4 g/dL (2.2-4.2); Glucose 144 mg/dL (74-106); Potassium 4.1 mmol/L (3.5-5.1); Protein, Total 5.3 g/dL (6.4-8.2); Sodium Level 137 mmol/L (136-145)
[2023-03-22 05:44] LABS: Differential Indicated SCAN CRITERIA MET
[2023-03-22 07:12] LABS: Differential Comment SCANNED
--- NOTE | 2023-03-22 07:52 | PN.HOSP_ITS ---
Reason for Visit Reason for Visit: Diagnoses Acidosis, unspecified (03/20/23) Weakness (03/20/23) Other malaise (03/20/23) Bacteremia (03/20/23) Subjective Subjective Did not sleep well last night so little bit tired today, was up walking around y esterday though and feeling like he is doing better Objective Data Objective Data Vital Signs: Vital Signs Temp Pulse Resp BP Pulse Ox O2 Del Method O2 Flow Rate 97.3 F L 70 16 132/68 H 93 Nasal Cannula 2 03/22/23 05:01 03/22/23 05:01 03/22/23 05:01 03/22/23 05:01 03/22/23 05:01 03/22/23 05:01 03/22/23 05:01 Oxygen Flow Rate (L/min) 2 Oxygen Delivery Method Nasal Cannula Weight: 81.9 kg Body Mass Index (BMI) 25.8 Intake & Output: Intake and Output for Last 24 Hours 03/20/23 03/21/23 03/22/23 23:59 23:59 23:59 Intake Total 250 / 250 2778 / 3038 310 / 310 Balance 250 / 250 2778 / 3038 310 / 310 Lab / Micro Data 03/22/23 04:50 03/22/23 04:50 Labs: Laboratory Results - last 24 hr 03/22/23 04:50: WBC 3.7 L, RBC 3.36 L, Hgb 8.9 L, Hct 29.8 L, MCV 88.7, MCH 26.5 L, MCHC 29.9 L, RDW Std Deviation 59.6 H, RDW Coeff of Ayaka 18.8 H, Plt Count 114 L, MPV 9.8, Immature Gran % (Auto) 0.500, Neut % (Auto) 85.8 H, Lymph % (Auto) 8.3 L, [place] % (Auto) 5.1, Eos % (Auto) 0.0, Baso % (Auto) 0.3, Absolute Neuts (auto) 3.2, Absolute Lymphs (auto) 0.31 L, Nucleated RBC % 0.5, Differential Comment SCANNED, Diff Path Review June, Sodium 137, Potassium 4.1, Chloride 104, Carbon Dioxide 30.0, Anion Gap 3 L, BUN 26 H, Creatinine 0.88, Estim Creat Clear Calc 80.65, Est GFR (MDRD) Af Amer 109, Est GFR (MDRD) Non-Af 90, BUN/Creatinine Ratio 29.4 H, Glucose 144 H, Calcium 8.5, Total Bilirubin 0.60, AST 21, ALT 15 L, Alkaline Phosphatase 59, Total Protein 5.3 L, Albumin 1.9 L, Globulin 3.4, Albumin/Globulin Ratio 0.6 L Micro: Microbiology 03/21/23 06:20 Sputum, Expectorated/Coughed Gram Stain - Final 03/20/23 19:35 Mucosa - Nasopharyngeal Respiratory Panel (PCR) - Final 03/20/23 20:24 Urine, Clean Catch Legionella Antigen - Final 03/20/23 20:24 Urine, Clean Catch Streptococcus pneumoniae Antigen (M - Final 03/20/23 19:35 Mucosa - Nasopharyngeal SARS-CoV-2, Influenza & RSV (PCR) - Final Physical Exam Narrative General: Alert, oriented, no apparent distress HEENT: Atraumatic, normocephalic Eyes: Anicteric, normal conjunctiva, extraocular movements grossly intact Neck: Supple Respiratory: Clear to auscultation bilaterally, normal respiratory effort Cardiovascular: Regular rate GI: Soft, nontender, nondistended Extremities: No edema Musculoskeletal: Moving all extremities Neuro: No overt focal neurological deficits Skin: No erythema or tenderness around the port Psych: Cooperative Assessment & Plan Assessment/Plan (1) Gram-negative bacteremia: (2) Lactic acidosis: (3) Debility: (4) Generalized weakness: PLAN: Ambrose MAHAD SULLIVAN, is a 72 M who presented initially to [facility] on 03/19/2023 complaining of weakness and fatigue that was worsening in the last 48 hours prior to presenting. Patient has a history of esophageal cancer and is on chemotherapy with Dr. Anthony. He has type 1 diabetes and has an insulin pump to control this and he also has a PEG tube for tube feeds. He states typically does quite well and has some baseline fatigue related to his chemo however his fatigue is much more severe than typical for him. He was evaluated in the emergency department and his lactic acid was up so a blood culture was obtained but this was the only abnormal finding at the time so the case was discussed with his oncologist after he got some IV fluids. He did feel that he was improved slightly and he was discharged home per his preference. Blood cultures were drawn prior to discharge and he was called as his blood cultures were found to be positive with gram-negative rods. He was still feeling generally weak and tired. Hospitalist contacted for admission. 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 -1 of 2 blood cultures are reported and appears they are both off of his port -Will likely need repeat blood cultures to ensure clearance with Mediport being possibly infected -Source is currently unclear however he does appear to have possible pneumonia -Urine culture is pending and done today -Start Zosyn -Check procalcitonin -May need ID input and can consult on Thursday for evaluation on Thursday if need be -03/21: Sputum culture pending still 1 out of 2 blood cultures positive, awaiting speciation, will repeat cultures 1 through port 1 through periphery and continue Zosyn, ucx pending -03/22: Both blood cultures were obtained through the periphery yesterday it appears, initial cultures both obtained through port, 1 out of 2 gram-negative rods, growing kelbsiella, also has gram-negative rods in his respiratory Gram stain, awaiting respiratory culture and repeat cxs, ID c/s in place Pancytopenia -Likely 2/2 chemo -Continue to monitor levels Lactic acidosis- RESOLVED -3.0 yesterday -Resolved today -No further intervention or assessment needed Generalized weakness/debility -Likely related to the above -Should improve with treatment of his infection -PT/OT to evaluate -Case management/social work to assist with discharge planning -03/21: PT/OT -03/22: Patient improving with antibiotics for his infection Esophageal cancer -Patient follows with Dr. Anthony -Currently on chemotherapy -Patient does not eat at baseline for nutrition and is on Jevity 1.55 cans daily--> continue while hospitalized -Continue home steroids -Hold home olanzapine as patient is not currently getting chemo -03/21: On pred daily, decadron on med list only for chemo -03/22: Continue tube feeds and supportive care History end-stage renal disease status post renal transplant -Serum creatinine is stable -Continue home prednisone -Continue home Bactrim -Continue home Prograf -If weakness does not improve with treatment of his bacteremia could consider checking a tacrolimus level -03/22: Daily BMPs, continuing home medications 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 Hyperlipidemia -Continue home rosuvastatin with therapeutic substitution Oral thrush -Continue home nystatin Chronic anemia secondary to chronic disease -Counts are stable -Likely related to above Diabetes mellitus -Patient is documented to be a type II and a type I -Is insulin-dependent and on an insulin pump -Patient self boluses with meals and will allow to continue -No need for SSI as patient boluses with his tube feed -Continue Jevity for tube feed -03/22: Patient uses insulin pump and manages with his tube feeds with insulin boluses, continue present management CAD/HTN/HPL -Continue home rosuvastatin with therapeutic substitution -Continue home Bumex -Continue home metoprolol PAF -Continue home amiodarone -Continue home Eliquis -Continue home metoprolol GERD -Continue home PPI DVT prophylaxis -Patient is chronically on Eliquis we will continue CODE STATUS -DNR CCA okay for short-term intubation per discussion on admission Time spent in the patient's overall evaluation,decision-making process, review of diagnostic data, adjustment of management, discussion with other providers, nursing nursing and ancillary staff involved in patient's care documentation, 35 minutes Charges/Coding Visit Charges Inpatient E&M: 12977 Subs Hosp L2
[2023-03-22] MEDS: Ipratropium/Albuterol Sulfate 3 ML AMPUL.NEB INHALATION ×3 (08:26→19:22)
[2023-03-22] MEDS: Metoprolol Tartrate 25 MG Tablet GT ×2 (09:39→22:01)
[2023-03-22] MEDS: NYSTATIN 500,000 UNIT/5 ML UDC 500000 UNIT PO ×4 (09:39→22:00)
[2023-03-22] MEDS: Amiodarone 200 MG Tablet GT (09:40)
[2023-03-22] MEDS: Bumetanide 2 MG Tablet 0.5 MG GT (09:40)
[2023-03-22] MEDS: predniSONE 5 MG Tablet PO (09:40)
[2023-03-22] MEDS: Tacrolimus 0.5 MG Capsule 1 MG GT (09:40)
[2023-03-22] MEDS: Jevity 1.5. 1,000 ML Bottle 237 ML GT ×5 (09:41→21:59)
[2023-03-22] MEDS: APIXABAN 5 MG TABLET GT ×2 (09:41→22:00)
[2023-03-22] MEDS: Insulin Basal Pump 1 UNIT SC (12:32)
[2023-03-22] MEDS: Atorvastatin Calcium 40 MG Tablet GT (22:00)
[2023-03-22] MEDS: Doxazosin 4 MG Tablet GT (22:03)
[2023-03-22] MEDS: Tacrolimus 0.5 MG Capsule GT (22:03)
[2023-03-23] VITALS (11 sets, daily range): BP systolic 101–145; BP diastolic 54–82; PULSE 72–92; RESP 16–18; TEMP 36.4–37.1; O2SAT 92–97; BMI 26.1
[2023-03-23 05:52] LABS: Absolute Neutrophil Count 4.9 X10^3/uL (2.0-7.7); Eosinophil# 0.02 X10^3/uL; Eosinophils% 0.4 % (0-5); Hematocrit 30.8 % (40-54); Hemoglobin 9.4 g/dL (13.0-16.5); Lymphocyte % 5.5 % (19-41); Mean Corp Hgb Conc 30.5 g/dL (32-36); Mean Corpuscular Hgb 26.5 pg (27.0-32.0); Mean Corpuscular Volume 86.8 fL (80-94); Mean Platelet Vol. 9.3 fl (6.2-12.0); Monocyte# 0.22 X10^3/uL; NRBC Flagged by Analyzer 0 % (0-5); Neutrophil % 89.7 % (47-70); POSITIVE DIFFERENTIAL YES; Platelet Count 102 K/mm3 (150-450); RBC Distribution Width CV 18.7 % (11.6-14.6); RBC Distribution Width SD 58.8 fl (35.1-43.9); Red Blood Count 3.55 M/mm3 (4.6-6.2); White Blood Count 5.5 K/mm3 (4.4-11.0)
[2023-03-23 06:04] LABS: Differential Indicated SCAN CRITERIA MET
[2023-03-23] MEDS: Piperacil/Tazobactam 3.375 GM in 0.9% Normal Saline (50mL MB+) 50 ML IV ×2 (06:04→12:47)
[2023-03-23 07:01] LABS: ALB/GLOB Ratio 0.6 RATIO (0.9-2.4); AST(SGOT) 18 U/L (15-37); Alanine Aminotransfer ALT/SGPT 16 U/L (16-61); Alkaline Phosphatase 61 U/L (45-117); Anion Gap 4 (5-15); BUN 21 mg/dL (7-18); BUN/Creat Ratio 26.4 RATIO (10-20); Calcium,Total 9.1 mg/dL (8.5-10.1); Chloride 104 mmol/L (98-107); Creatinine, Serum 0.79 mg/dL (0.70-1.30); EST Glomerular Filtration Rate 102 mL/min (>60); Est Glom Filt Rate - Afr Amer 124 mL/min (>60); Estimated Creatinine Clearance 88.72 ml/min; Globulin 3.5 g/dL (2.2-4.2); Glucose 144 mg/dL (74-106); Potassium 4.1 mmol/L (3.5-5.1); Protein, Total 5.5 g/dL (6.4-8.2); Sodium Level 137 mmol/L (136-145)
[2023-03-23] MEDS: Ipratropium/Albuterol Sulfate 3 ML AMPUL.NEB INHALATION ×2 (07:25→19:48)
--- NOTE | 2023-03-23 08:32 | PN.HOSP_ITS ---
Reason for Visit Reason for Visit: Diagnoses Acidosis, unspecified (03/20/23) Weakness (03/20/23) Other malaise (03/20/23) Bacteremia (03/20/23) Subjective Subjective Patient is a 72-year-old gentleman with history of esophageal CA with metastatic spread, history of renal transplant, admitted with positive blood cultures Objective Data Objective Data Vital Signs: Vital Signs Temp Pulse Resp BP Pulse Ox O2 Del Method O2 Flow Rate 98.5 F 74 16 145/82 H 96 Room Air 2 03/23/23 02:28 03/23/23 07:26 03/23/23 07:26 03/23/23 02:28 03/23/23 07:27 03/23/23 07:27 03/23/23 02:31 Oxygen Flow Rate (L/min) 2 Oxygen Delivery Method Room Air Weight: 82.7 kg Body Mass Index (BMI) 26.1 Intake & Output: Intake and Output for Last 24 Hours 03/21/23 03/22/23 03/23/23 23:59 23:59 23:59 Intake Total 2778 / 3038 2328 / 2698 420 / 420 Balance 2778 / 3038 2328 / 2698 420 / 420 Lab / Micro Data 03/23/23 05:42 03/23/23 05:42 Labs: Laboratory Results - last 24 hr 03/23/23 05:42: WBC 5.5, RBC 3.55 L, Hgb 9.4 L, Hct 30.8 L, MCV 86.8, MCH 26.5 L , MCHC 30.5 L, RDW Std Deviation 58.8 H, RDW Coeff of Ayaka 18.7 H, Plt Count 102 L, MPV 9.3, Immature Gran % (Auto) 0.400, Neut % (Auto) 89.7 H, Lymph % (Auto) 5.5 L, [place] % (Auto) 4.0, Eos % (Auto) 0.4, Baso % (Auto) 0.0, Absolute Neuts (auto) 4.9, Absolute Lymphs (auto) 0.30 L, Nucleated RBC % 0, Sodium 137, Potassium 4.1, Chloride 104, Carbon Dioxide 29.0, Anion Gap 4 L, BUN 21 H, Creatinine 0.79, Estim Creat Clear Calc 88.72, Est GFR (MDRD) Af Amer 124, Est GFR (MDRD) Non-Af 102, BUN/Creatinine Ratio 26.4 H, Glucose 144 H, Calcium 9.1, Total Bilirubin 0.60, AST 18, ALT 16, Alkaline Phosphatase 61, Total Protein 5.5 L, Albumin 2.0 L, Globulin 3.5, Albumin/Globulin Ratio 0.6 L Micro: Microbiology 03/21/23 06:20 Sputum, Expectorated/Coughed Gram Stain - Final 03/21/23 06:20 Sputum, Expectorated/Coughed Respiratory Culture - 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 03/20/23 20:24 Urine, Clean Catch Urine Culture - Final Mixed Gram Positive Organisms 03/20/23 19:35 Mucosa - Nasopharyngeal Respiratory Panel (PCR) - Final 03/20/23 20:24 Urine, Clean Catch Legionella Antigen - Final 03/20/23 20:24 Urine, Clean Catch Streptococcus pneumoniae Antigen (M - Final 03/20/23 19:35 Mucosa - Nasopharyngeal SARS-CoV-2, Influenza & RSV (PCR) - Final Physical Exam Narrative GENERAL: cooperative HEENT: Atraumatic; normocephalic EYES; Anicteric, Normal Conjunctiva NECK; supple, normal thyroid, RESPIRATORY: Diminished to auscultation CARDIOVASCULAR: Regular S1 S2, GI: soft, normoactive bowel sounds, : No Renal angle tenderness; EXTREMITIES: No edema, no clubbing, MUSCULOSKELETAL: no muscle wasting NEURO: Awake; no lateralizing signs. SKIN: No Rash PSYCH; Flat affect Assessment & Plan Assessment/Plan (1) Gram-negative bacteremia: PLAN: Plan Patient is a 72-year-old gentleman with history of esophageal CA with metastatic spread, history of renal transplant, admitted with positive blood cultures 1. Gram-negative svitlana bacteremia ? Final culture did not grow Klebsiella pneumoniae possibly from lung source since patient is growing gram-positive bacilli from the sputum. Repeat cultures were sent results pending. Patient remains on broad-spectrum antibiotic therapy. 2. Lactic acidosis ? Resolved 3. Pulmonary nodules ? Suspected metastatic lung disease from esophageal CA pulmonary medicine on consult 4. Chronic congestive heart failure with preserved ejection fraction ? Patient is on diuretic therapy. 2D echo from 11/27/2022 demonstrated EF of 70% with mild concentric left ventricular hypertrophy. 5. Esophageal CA ? Status post gastrostomy tube insertion. Plan esophagectomy was apparently discontinued due to progression of disease. Patient is followed by oncology as outpatient 6. History of renal transplant ? Secondary to diabetic nephropathy did continue patient antirejection medications 7. Paroxysmal atrial fibrillation ? Rate controlled with amiodarone patient is on systemic anticoagulation with apixaban 8. Diabetes mellitus type 2 ? Patient is on insulin pump 9. Hypertension - Blood pressure controlled, home medications continued with dose adjustment as needed 11. Dyslipidemia -Patient is on statin therapy, continued at home dose 12. Anemia - Secondary to chronic disorder monitoring H&H and transfuse if patient becomes symptomatic or hemoglobin falls below 7 13. Physical deconditioning - Requested for PT OT eval and social media manager to assist with discharge planning 14. DVT prophylaxis ? Patient on apixaban Time spent in the patient's overall evaluation,decision-making process, review of diagnostic data, adjustment of management, discussion with other providers, nursing nursing and ancillary staff involved in patient's care documentation, 50 Minutes Charges/Coding Visit Charges Inpatient E&M: 43100 [facility] L3
[2023-03-23] MEDS: SMZ/TPM Suspension 20 ML GT (08:59)
[2023-03-23] MEDS: predniSONE 5 MG Tablet PO (08:59)
[2023-03-23] MEDS: NYSTATIN 500,000 UNIT/5 ML UDC 500000 UNIT PO ×4 (09:00→22:12)
[2023-03-23] MEDS: APIXABAN 5 MG TABLET GT ×2 (09:00→22:15)
[2023-03-23] MEDS: Bumetanide 2 MG Tablet 0.5 MG GT (09:00)
[2023-03-23] MEDS: Jevity 1.5. 1,000 ML Bottle 237 ML GT ×5 (09:01→22:14)
[2023-03-23] MEDS: Tacrolimus 0.5 MG Capsule 1 MG GT (11:10)
[2023-03-23] MEDS: Metoprolol Tartrate 25 MG Tablet GT ×2 (11:24→22:14)
[2023-03-23] MEDS: Amiodarone 200 MG Tablet GT (11:24)
[2023-03-23] MEDS: Insulin Basal Pump 1 UNIT SC (12:43)
[2023-03-23 14:11] LABS: Pathologist Review Reviewed
[2023-03-23 14:12] LABS: Pathologist Review Reviewed
[2023-03-23] MEDS: Ceftriaxone 2 GM in 0.9% Normal Saline (50mL MB+) 50 ML IV (15:00)
--- NOTE | 2023-03-23 15:12 | PCM.CONS.GEN ---
Assessment & Plan Assessment/Plan (1) Gram-negative bacteremia: PLAN: klebs bacteremia, suspected source pneumonia. Will narrow zosyn to ceftriaxone. Plan on home with short course po abx. Will follow, thank you (2) Esophageal cancer: QUALIFIERS: Malignant neoplasm of esophagus location: unspecified location Qualified Code(s): C15.9 - Malignant neoplasm of esophagus, unspecified HPI Consult Data Date of Consult: 03/23/23 HPI Narrative Reason for Consultation: bacteremia HPI Narrative: MAHAD SULLIVAN, is a 72 M with esophageal cancer, on chemo via L chest port, PEG in place for tube feeds, presented 03/19 to ED with several days fatigue, weakness, chills. Mild cough with sputum chronically. Called back to ED 03/20 due to (+) bcx. Admitted on zosyn, feeling better. Full ROS performed and neg except as noted above. No issues with port. [facility] Medical History Ambulates with cane Amputation finger Amputation of toe Anemia Anemia of chronic disease Atrial fibrillation Bilateral edema of lower extremity Charcot's joint of foot Chemotherapy adverse reaction Chronic renal failure Coronary artery disease Diabetes mellitus, type II Diabetic foot ulcer associated with diabetes mellitus due to underlying condition Diabetic neuropathy associated with type 2 diabetes mellitus Dialysis AV fistula malfunction Esophageal cancer Esophageal cancer Esophageal cancer Esophageal dysphagia Esophageal stricture Fever Finger osteomyelitis, left Gastric reflux Gastrostomy tube dependent History of steroid therapy HLD (hyperlipidemia) Hyperglycemia due to diabetes mellitus Hypertension Hypertension Hyponatremia Hypoxia Insulin dependent diabetes mellitus Nephropathy, diabetic Neuropathy in diabetes NSTEMI (non-ST elevated myocardial infarction) Obesity Presence of insulin pump Wears dentures Wears glasses Wears hearing aid Home Medications prednisone 2.5 mg tablet 5 mg PO DAILY steriod 05/11/15 [History Last Taken 03/20/23] insulin aspart U-100 100 unit/mL (3 mL) subcutaneous pen (Novolog FlexPen U-100 Insulin aspart) See Protocol subcut CONT DM 02/06/18 [History Last Taken 03/20/23] lactose-reduced food with fiber 0.06 gram-1.5 kcal/mL oral liquid (Jevity 1.5 Victorino) 237 ml feeding tube .COMPLEX NUTRITION 10/16/22 [History Last Taken 03/20/23] ondansetron 8 mg disintegrating tablet 8 mg PO Q8H PRN nausea and vomiting 30 days #30 tabs 10/17/22 [Rx Last Taken Unknown] nystatin 100,000 unit/mL oral suspension 5 ml PO 4X/DAY MOUTH 10/24/22 [History Last Taken 03/20/23] omeprazole 10 mg capsule,delayed release See Rx Instructions feeding tube DAILY reflux 10/24/22 [History Last Taken 03/20/23] amiodarone 200 mg tablet 200 mg feeding tube DAILY heart #30 tabs 01/21/23 [Rx Last Taken 03/20/23] apixaban 5 mg tablet (Eliquis) 5 mg feeding tube BID #60 tabs 01/21/23 [Rx Last Taken 03/20/23] rosuvastatin 20 mg tablet (Crestor) 20 mg feeding tube QHS cholesterol #1 TAB 01/21/23 [Rx Last Taken 03/19/23] sulfamethoxazole-trimethoprim 1 tab G-tube DAILY antibiotic #1 TAB 01/21/23 [Rx Last Taken 03/20/23] olanzapine 5 mg tablet 5 mg PO BID after chemo 02/14/23 [History Last Taken 03/20/23] tacrolimus 0.5 mg capsule, immediate-release (Prograf) 0.5 mg PO .COMPLEX organ rejection 02/14/23 [History Last Taken 03/20/23] terazosin 5 mg capsule 5 mg PO QHS BP 02/14/23 [History Last Taken 03/19/23] albuterol sulfate 90 mcg/actuation aerosol inhaler (Ventolin HFA) 2 puff inhalation Q4H PRN shortness of breath or wheezing #18 grams 03/03/23 [Rx Last Taken Unknown] bumetanide 1 mg tablet 0.5 mg PO DAILY 03/03/23 [History Last Taken 03/20/23] metoprolol tartrate 25 mg tablet 25 mg PO BID #60 tabs 03/19/23 [Rx Last Taken 03/20/23] dexamethasone 4 mg tablet 4 mg PO BID 03/20/23 [History Last Taken 03/20/23] Allergy/AdvReac Type Severity Reaction Status Date / Time diphenhydramine AdvReac Mild jittery/ Verified 03/20/23 16:19 [From Rodo] anxious Family History Mother Kidney disease Hypertension High cholesterol Diabetes Father Kidney disease Hypertension High cholesterol Diabetes Surgical History Amputation of foot Hx of kidney transplant Hx of surgical amputation of finger Insulin pump status Renal transplant recipient Renal transplant recipient Social History household members: spouse, family and children Smoking Status: Former smoker how long ago did patient quit smoking: Quit~ 50 years prior smoked youth until quit 2 ppd. alcohol intake: former details: Drank heavily in youth, stopped ~ 50 years prior. substance use type: does not use what type of physical activity do you participate in: walking Physical Exam Const alert, oriented x3 and no apparent distress General Appearance: cooperative HEENT normocephalic and head/scalp atraumatic Eyes PERRL and EOMs intact bilaterally Neck supple and No nodes Resp Resp Narrative: faint R base rhonchi Cardio regular rate and regular rhythm GI soft to palpation, non-tender and non-distended Extremity General Extremity: Negative for edema Skin no rashes or lesions noted Neuro CN's II-XII intact bilaterally Lab / Micro Data Attestation: I reviewed the patient's lab results. 03/23/23 05:42 03/23/23 05:42 Labs: Laboratory Results - last 24 hr 03/21/23 06:04: Diff Path Review Reviewed 03/22/23 04:50: Diff Path Review Reviewed 03/23/23 05:42: WBC 5.5, RBC 3.55 L, Hgb 9.4 L, Hct 30.8 L, MCV 86.8, MCH 26.5 L, MCHC 30.5 L, RDW Std Deviation 58.8 H, RDW Coeff of Ayaka 18.7 H, Plt Count 102 L, MPV 9.3, Immature Gran % (Auto) 0.400, Neut % (Auto) 89.7 H, Lymph % (Auto) 5.5 L, [place] % (Auto) 4.0, Eos % (Auto) 0.4, Baso % (Auto) 0.0, Absolute Neuts (auto) 4.9, Absolute Lymphs (auto) 0.30 L, Nucleated RBC % 0, Sodium 137, Potassium 4.1, Chloride 104, Carbon Dioxide 29.0, Anion Gap 4 L, BUN 21 H, Creatinine 0.79, Estim Creat Clear Calc 88.72, Est GFR (MDRD) Af Amer 124, Est GFR (MDRD) Non-Af 102, BUN/Creatinine Ratio 26.4 H, Glucose 144 H, Calcium 9.1, Total Bilirubin 0.60, AST 18, ALT 16, Alkaline Phosphatase 61, Total Protein 5.5 L, Albumin 2.0 L, Globulin 3.5, Albumin/Globulin Ratio 0.6 L Micro: Microbiology 03/21/23 08:37 Blood Culture (Wb) - Right Hand Blood Culture - Preliminary No growth in 48 hours. 03/21/23 08:21 Blood Culture (Wb) - Right Hand Blood Culture - Preliminary No growth in 48 hours. 03/21/23 06:20 Sputum, Expectorated/Coughed Gram Stain - Final 03/21/23 06:20 Sputum, Expectorated/Coughed Respiratory Culture - Final Klebsiella pneumoniae sp pneum 03/20/23 20:24 Urine, Clean Catch Urine Culture - Final Mixed Gram Positive Organisms
[2023-03-23] MEDS: Doxazosin 4 MG Tablet GT (22:15)
[2023-03-23] MEDS: Tacrolimus 0.5 MG Capsule GT (22:15)
[2023-03-23] MEDS: Atorvastatin Calcium 40 MG Tablet GT (22:15)
--- NOTE | 2023-03-24 01:21 | NURSING ---
Pt's BG was 180 at 2200 03/23/2023 according to his pump. He gave himself 7 units of insulin through the pump before his tube feed
[2023-03-24 05:53] VITALS: BP 122/62; PULSE 74; RESP 16; TEMP 36.5; O2SAT 94
[2023-03-24] MEDS: Ipratropium/Albuterol Sulfate 3 ML AMPUL.NEB INHALATION (07:01)
[2023-03-24 07:07] VITALS: PULSE 77; RESP 16; O2SAT 96
--- NOTE | 2023-03-24 07:46 | PN.HOSP_ITS ---
Reason for Visit Reason for Visit: Diagnoses Malignant neoplasm of esophagus, unspecified (03/20/23) Acidosis, unspecified (03/20/23) Weakness (03/20/23) Other malaise (03/20/23) Bacteremia (03/20/23) Subjective Subjective Patient seen clinical condition improved. Patient to be assessed for possible discharge Objective Data Objective Data Vital Signs: Vital Signs Temp Pulse Resp BP Pulse Ox O2 Del Method O2 Flow Rate 97.7 F L 74 16 122/62 H 94 Nasal Cannula 2 03/24/23 05:53 03/24/23 05:53 03/24/23 05:53 03/24/23 05:53 03/24/23 05:53 03/24/23 05:53 03/24/23 05:53 Oxygen Flow Rate (L/min) 2 Oxygen Delivery Method Nasal Cannula Weight: 82.7 kg Body Mass Index (BMI) 26.1 Intake & Output: Intake and Output for Last 24 Hours 03/22/23 03/23/23 03/24/23 23:59 23:59 23:59 Intake Total 2328 / 2698 1572.46 / 1772.46 200 / 200 Balance 2328 / 2698 1572.46 / 1772.46 200 / 200 Lab / Micro Data 03/24/23 07:40 03/24/23 07:40 Labs: Laboratory Results - last 24 hr 03/21/23 06:04: Diff Path Review Reviewed 03/22/23 04:50: Diff Path Review Reviewed Micro: Microbiology 03/21/23 08:37 Blood Culture (Wb) - Right Hand Blood Culture - Preliminary No growth in 48 hours. 03/21/23 08:21 Blood Culture (Wb) - Right Hand Blood Culture - Preliminary No growth in 48 hours. 03/21/23 06:20 Sputum, Expectorated/Coughed Gram Stain - Final 03/21/23 06:20 Sputum, Expectorated/Coughed Respiratory Culture - Final Klebsiella pneumoniae sp pneum 03/20/23 20:24 Urine, Clean Catch Urine Culture - Final Mixed Gram Positive Organisms 03/20/23 19:35 Mucosa - Nasopharyngeal Respiratory Panel (PCR) - Final 03/20/23 20:24 Urine, Clean Catch Legionella Antigen - Final 03/20/23 20:24 Urine, Clean Catch Streptococcus pneumoniae Antigen (M - Final 01/19/24 19:35 Mucosa - Nasopharyngeal SARS-CoV-2, Influenza & RSV (PCR) - Final Physical Exam Narrative GENERAL: cooperative HEENT: Atraumatic; normocephalic EYES; Anicteric, Normal Conjunctiva NECK; supple, normal thyroid, RESPIRATORY: Diminished to auscultation CARDIOVASCULAR: Regular S1 S2, GI: soft, normoactive bowel sounds, : No Renal angle tenderness; EXTREMITIES: No edema, no clubbing, MUSCULOSKELETAL: no muscle wasting NEURO: Awake; no lateralizing signs. SKIN: No Rash PSYCH; Flat affect Assessment & Plan Assessment/Plan (1) Gram-negative bacteremia: PLAN: Plan Patient is a 72-year-old gentleman with history of esophageal CA with metastatic spread, history of renal transplant, admitted with positive blood cultures 1. Gram-negative svitlana bacteremia ? Final culture did not grow Klebsiella pneumoniae possibly from lung source since patient is growing gram-positive bacilli from the sputum. Repeat cultures were sent results pending. Patient remains on broad-spectrum antibiotic therapy. ? 03/24/2023; patient seen and assessed plan is for patient to be assessed for possible discharge with a short course of p.o. antibiotics. Case discussed with Dr. Arroyo with ID 2. Lactic acidosis ? Resolved 3. Pulmonary nodules ? Suspected metastatic lung disease from esophageal CA pulmonary medicine on consult 4. Chronic congestive heart failure with preserved ejection fraction ? Patient is on diuretic therapy. 2D echo from 11/27/2022 demonstrated EF of 70% with mild concentric left ventricular hypertrophy. 5. Esophageal CA ? Status post gastrostomy tube insertion. Plan esophagectomy was apparently discontinued due to progression of disease. Patient is followed by oncology as outpatient 6. History of renal transplant ? Secondary to diabetic nephropathy did continue patient antirejection medications 7. Paroxysmal atrial fibrillation ? Rate controlled with amiodarone patient is on systemic anticoagulation with apixaban 8. Diabetes mellitus type 2 ? Patient is on insulin pump 9. Hypertension - Blood pressure controlled, home medications continued with dose adjustment as needed 11. Dyslipidemia -Patient is on statin therapy, continued at home dose 12. Anemia - Secondary to chronic disorder monitoring H&H and transfuse if patient becomes symptomatic or hemoglobin falls below 7 13. Physical deconditioning - Requested for PT OT eval and social science manager to assist with discharge planning 14. DVT prophylaxis ? Patient on apixaban Time spent in the patient's overall evaluation,decision-making process, review of diagnostic data, adjustment of management, discussion with other providers, nursing nursing and ancillary staff involved in patient's care documentation, 35 Minutes Charges/Coding Visit Charges Inpatient E&M: 18193 Subs Hosp L2
[2023-03-24 08:06] LABS: Absolute Lymphocyte Count 0.53 X10^3/uL (0.83-4.51); Absolute Neutrophil Count 2.9 X10^3/uL (2.0-7.7); Basophil# 0.01 X10^3/uL; Basophil% 0.3 % (0-1); Eosinophil# 0.06 X10^3/uL; Eosinophils% 1.6 % (0-5); Hematocrit 29.6 % (40-54); Hemoglobin 9.1 g/dL (13.0-16.5); Lymphocyte # 0.53 X10^3/ul (0.83-4.51); Lymphocyte % 13.9 % (19-41); Mean Corp Hgb Conc 30.7 g/dL (32-36); Mean Corpuscular Hgb 26.7 pg (27.0-32.0); Mean Corpuscular Volume 86.8 fL (80-94); Mean Platelet Vol. 9.6 fl (6.2-12.0); Monocyte# 0.27 X10^3/uL; Monocyte% 7.1 % (0-10); NRBC Flagged by Analyzer 0 % (0-5); Neutrophil # 2.91 X10^3/uL (2.7-7.7); Neutrophil % 76.6 % (47-70); POSITIVE DIFFERENTIAL YES; Platelet Count 103 K/mm3 (150-450); RBC Distribution Width CV 18.3 % (11.6-14.6); RBC Distribution Width SD 57.4 fl (35.1-43.9); Red Blood Count 3.41 M/mm3 (4.6-6.2); White Blood Count 3.8 K/mm3 (4.4-11.0)
[2023-03-24 08:08] LABS: Differential Indicated SCAN CRITERIA MET
[2023-03-24 08:28] VITALS: BMI 25.9
[2023-03-24 08:29] VITALS: BP 113/57; PULSE 82; RESP 18; TEMP 36.8; O2SAT 95
[2023-03-24 08:34] LABS: ALB/GLOB Ratio 0.6 RATIO (0.9-2.4); AST(SGOT) 16 U/L (15-37); Alanine Aminotransfer ALT/SGPT 15 U/L (16-61); Alkaline Phosphatase 62 U/L (45-117); Anion Gap 2 (5-15); BUN 18 mg/dL (7-18); Calcium,Total 9.2 mg/dL (8.5-10.1); Chloride 103 mmol/L (98-107); Creatinine, Serum 0.75 mg/dL (0.70-1.30); EST Glomerular Filtration Rate 110 mL/min (>60); Est Glom Filt Rate - Afr Amer 132 mL/min (>60); Estimated Creatinine Clearance 88.72 ml/min; Globulin 3.5 g/dL (2.2-4.2); Glucose 153 mg/dL (74-106); Magnesium 1.9 mg/dL (1.6-2.6); Potassium 4.2 mmol/L (3.5-5.1); Protein, Total 5.5 g/dL (6.4-8.2); Sodium Level 135 mmol/L (136-145)
[2023-03-24 08:36] LABS: Differential Comment SCANNED
[2023-03-24 08:38] LABS: Phosphorus 2.3 mg/dL (2.5-4.9)
[2023-03-24 09:08] VITALS: BP 113/57; PULSE 82
[2023-03-24] MEDS: APIXABAN 5 MG TABLET GT (09:08)
[2023-03-24] MEDS: NYSTATIN 500,000 UNIT/5 ML UDC 500000 UNIT PO (09:08)
[2023-03-24] MEDS: Metoprolol Tartrate 25 MG Tablet GT (09:08)
[2023-03-24] MEDS: Bumetanide 2 MG Tablet 0.5 MG GT (09:09)
[2023-03-24] MEDS: Insulin Basal Pump 1 UNIT SC (09:10)
[2023-03-24] MEDS: Amiodarone 200 MG Tablet GT (09:10)
[2023-03-24] MEDS: Tacrolimus 0.5 MG Capsule 1 MG GT (09:10)
[2023-03-24] MEDS: Jevity 1.5. 1,000 ML Bottle 237 ML GT ×2 (09:11→12:22)
[2023-03-24] MEDS: predniSONE 5 MG Tablet PO (09:11)
[2023-03-24] MEDS: Ceftriaxone 2 GM in 0.9% Normal Saline (50mL MB+) 50 ML IV (09:22)
--- NOTE | 2023-03-24 10:35 | PCM.PN.ID ---
Physical Exam Narrative Feeling much better, no fever, no cough, walking halls. Const alert and no apparent distress Resp normal air movement and clear to auscultation bilaterally Cardio regular rate and regular rhythm GI soft to palpation, non-tender and non-distended Skin no rashes or lesions noted ID ID: Route of nutrition/ use of supplements: [] Nutritional Intake: [] IV Site: [] Sawant Catheter: [] Assessment & Plan Assessment/Plan (1) Gram-negative bacteremia: PLAN: klebs bacteremia, suspected source pneumonia. Will cont ceftriaxone. Plan on home with 3 days po keflex 500mg tid. Will follow (2) Esophageal cancer: QUALIFIERS: Malignant neoplasm of esophagus location: unspecified location Qualified Code(s): C15.9 - Malignant neoplasm of esophagus, unspecified
--- NOTE | 2023-03-24 10:56 | DS.PCM_ITS ---
Providers Date of Admission: 03/20/23 Date of Discharge: 03/24/23 Primary Care Physician: Dr. Mikayla Lopez MD Consultations 03/22/23 07:53 Consult: Infectious Disease Routine Consulting Provider: Td Arroyo Reason for Consult: Cancer w/ port, GNR bacteremia EMERGENT Consult: No MD Notified: Yes Date Notified: 03/23/23 Time Notified: 08:01 Method of Notification: Text Reason For Visit: GN BACTERMIA/ DEBILITY Diagnosis Discharge Diagnosis (1) Gram-negative bacteremia: Status: Acute Code(s): R78.81 - Bacteremia (2) Esophageal cancer: Status: Chronic Code(s): C15.9 - Malignant neoplasm of esophagus, unspecified Qualifiers: Malignant neoplasm of esophagus location: unspecified location Qualif ied Code(s): C15.9 - Malignant neoplasm of esophagus, unspecified Plan Patient is a 72-year-old gentleman with history of esophageal CA with metastatic spread, history of renal transplant, admitted with positive blood cultures 1. Gram-negative svitlana bacteremia ? Final culture did not grow Klebsiella pneumoniae possibly from lung source since patient is growing gram-positive bacilli from the sputum. Repeat cultures were sent results pending. Patient remains on broad-spectrum antibiotic therapy. ? 03/24/2023; patient seen and assessed plan is for patient to be assessed for possible discharge with a short course of p.o. antibiotics. Case discussed with Dr. Arroyo with ID 2. Lactic acidosis ? Resolved 3. Pulmonary nodules ? Suspected metastatic lung disease from esophageal CA pulmonary medicine on consult 4. Chronic congestive heart failure with preserved ejection fraction ? Patient is on diuretic therapy. 2D echo from 11/27/2022 demonstrated EF of 70% with mild concentric left ventricular hypertrophy. 5. Esophageal CA ? Status post gastrostomy tube insertion. Plan esophagectomy was apparently discontinued due to progression of disease. Patient is followed by oncology as outpatient 6. History of renal transplant ? Secondary to diabetic nephropathy did continue patient antirejection medications 7. Paroxysmal atrial fibrillation ? Rate controlled with amiodarone patient is on systemic anticoagulation with apixaban 8. Diabetes mellitus type 2 ? Patient is on insulin pump 9. Hypertension - Blood pressure controlled, home medications continued with dose adjustment as needed 11. Dyslipidemia -Patient is on statin therapy, continued at home dose 12. Anemia - Secondary to chronic disorder monitoring H&H and transfuse if patient becomes symptomatic or hemoglobin falls below 7 13. Physical deconditioning - Requested for PT OT eval and social security benefits interviewer to assist with discharge planning 14. DVT prophylaxis ? Patient on apixaban Time spent in the patient's overall evaluation,decision-making process, review of diagnostic data, adjustment of management, discussion with other providers, nursing nursing and ancillary staff involved in patient's care documentation, 35 Minutes Medications at Discharge Home Medications prednisone 2.5 mg tablet 5 mg PO DAILY steriod 05/11/15 insulin aspart U-100 100 unit/mL (3 mL) subcutaneous pen (Novolog FlexPen U-100 Insulin aspart) See Protocol subcut CONT DM 02/06/18 lactose-reduced food with fiber 0.06 gram-1.5 kcal/mL oral liquid (Jevity 1.5 Victorino) 237 ml feeding tube .COMPLEX NUTRITION 10/16/22 ondansetron 8 mg disintegrating tablet 8 mg PO Q8H PRN nausea and vomiting 30 days #30 tabs 10/17/22 nystatin 100,000 unit/mL oral suspension 5 ml PO 4X/DAY MOUTH 10/24/22 omeprazole 10 mg capsule,delayed release See Rx Instructions feeding tube DAILY reflux 10/24/22 amiodarone 200 mg tablet 200 mg feeding tube DAILY heart #30 tabs 01/21/23 apixaban 5 mg tablet (Eliquis) 5 mg feeding tube BID #60 tabs 01/21/23 rosuvastatin 20 mg tablet (Crestor) 20 mg feeding tube QHS cholesterol #1 TAB 01/21/23 sulfamethoxazole-trimethoprim 1 tab G-tube DAILY antibiotic #1 TAB 01/21/23 olanzapine 5 mg tablet 5 mg PO BID after chemo 02/14/23 tacrolimus 0.5 mg capsule, immediate-release (Prograf) 0.5 mg PO .COMPLEX organ rejection 02/14/23 terazosin 5 mg capsule 5 mg PO QHS BP 02/14/23 albuterol sulfate 90 mcg/actuation aerosol inhaler (Ventolin HFA) 2 puff inhalation Q4H PRN shortness of breath or wheezing #18 grams 03/03/23 bumetanide 1 mg tablet 0.5 mg PO DAILY 03/03/23 metoprolol tartrate 25 mg tablet 25 mg PO BID #60 tabs 03/19/23 dexamethasone 4 mg tablet 4 mg PO BID 03/20/23 cefdinir 300 mg capsule 300 mg PO BID #10 caps 03/24/23 Hospital Course Summary of Care Provided Minutes Spent on Discharge: 35 Physical Exam Narrative GENERAL: cooperative HEENT: Atraumatic; normocephalic EYES; Anicteric, Normal Conjunctiva NECK; supple, normal thyroid, RESPIRATORY: Diminished to auscultation CARDIOVASCULAR: Regular S1 S2, GI: soft, normoactive bowel sounds, : No Renal angle tenderness; EXTREMITIES: No edema, no clubbing, MUSCULOSKELETAL: no muscle wasting NEURO: Awake; no lateralizing signs. SKIN: No Rash PSYCH; Flat affect Weight / BMI Weight Weight: 82.2 kg Body Mass Index (BMI) 25.9 ABG / Lab / Microbiology Data 03/24/23 07:40 03/24/23 07:40 Laboratory: Laboratory Results - last 24 hr 03/21/23 06:04: Diff Path Review Reviewed 03/22/23 04:50: Diff Path Review Reviewed 03/24/23 07:40: WBC 3.8 L, RBC 3.41 L, Hgb 9.1 L, Hct 29.6 L, MCV 86.8, MCH 26.7 L, MCHC 30.7 L, RDW Std Deviation 57.4 H, RDW Coeff of Ayaka 18.3 H, Plt Count 103 L, MPV 9.6, Immature Gran % (Auto) 0.500, Neut % (Auto) 76.6 H, Lymph % (Auto) 13.9 L, Jewell % (Auto) 7.1, Eos % (Auto) 1.6, Baso % (Auto) 0.3, Absolute Neuts (auto) 2.9, Absolute Lymphs (auto) 0.53 L, Nucleated RBC % 0, Differential Comment SCANNED, Diff Path Review June, Sodium 135 L, Potassium 4.2, Chloride 103, Carbon Dioxide 30.0, Anion Gap 2 L, BUN 18, Creatinine 0.75, Estim Creat Clear Calc 88.72, Est GFR (MDRD) Af Amer 132, Est GFR (MDRD) Non-Af 110, BUN/Creatinine Ratio 24.0 H, Glucose 153 H, Calcium 9.2, Magnesium 1.9, Total Bilirubin 0.40, AST 16, ALT 15 L, Alkaline Phosphatase 62, Total Protein 5.5 L, Albumin 2.0 L, Globulin 3.5, Albumin/Globulin Ratio 0.6 L 03/24/23 07:49: Phosphorus 2.3 L Microbiology: Microbiology 03/21/23 08:37 Blood Culture (Wb) - Right Hand Blood Culture - Preliminary No growth in 48 hours. 03/21/23 08:21 Blood Culture (Wb) - Right Hand Blood Culture - Preliminary No growth in 48 hours. 03/21/23 06:20 Sputum, Expectorated/Coughed Gram Stain - Final 03/21/23 06:20 Sputum, Expectorated/Coughed Respiratory Culture - Final Klebsiella pneumoniae sp pneum 03/20/23 20:24 Urine, Clean Catch Urine Culture - Final Mixed Gram Positive Organisms 03/20/23 19:35 Mucosa - Nasopharyngeal Respiratory Panel (PCR) - Final 03/20/23 20:24 Urine, Clean Catch Legionella Antigen - Final 03/20/23 20:24 Urine, Clean Catch Streptococcus pneumoniae Antigen (M - Final 03/20/23 19:35 Mucosa - Nasopharyngeal SARS-CoV-2, Influenza & RSV (PCR) - Final D/C Instructions Discharge Diet: No restrictions Discharge Activity: Return to Normal Activity Call your doctor if you observe: Fever of 101 or Higher, Shortness of breath, Fainting spells and Chest pain Meaningful Use Info Meaningful Use Diagnoses (Choose all that apply): None applicable Discharge Plan Admission Admit Date/Time: 03/20/23 17:37 Attending Provider: Orion Ho Primary Care Provider: Mikayla Lopez Consulting Providers: Lorene Steinberg; Candice Beasley; Td Arroyo Discharge Orders/Prescriptions Prescriptions: New cefdinir 300 mg capsule 300 mg PO BID Qty: 10 0RF Continued metoprolol tartrate 25 mg tablet 25 mg PO BID Qty: 60 11RF Rx Instructions: 1 tablet via G-tube twice daily bumetanide 1 mg tablet 0.5 mg PO DAILY albuterol sulfate [Ventolin HFA] 90 mcg/actuation HFA aerosol inhaler 2 puff inhalation Q4H PRN (Reason: shortness of breath or wheezing) Qty: 18 6RF prednisone 2.5 MG tablet 5 mg PO DAILY Patient Comments: STEROID insulin aspart U-100 [Novolog FlexPen U-100 Insulin] 100 UNITS/ML insulin pen See Protocol subcut CONT Protocol: 6. Sliding Scale Insulin Custom Condition: mg/dl range Dose/Route: Number of Units Instruction: using insulin pump Protocol Text: Custom Sliding Scale Rx Instructions: insulin pump olanzapine 5 mg tablet 5 mg PO BID Rx Instructions: FOR THREE DAYS AFTER EACH CHEMO tacrolimus [Prograf] 0.5 mg capsule 0.5 mg PO .COMPLEX Rx Instructions: 1mg in AM; 0.5 mg orally qhs; terazosin 5 mg capsule 5 mg PO QHS Jevity 1.5 Victorino 0.06 gram-1.5 kcal/mL liquid 237 ml feeding tube .COMPLEX Patient Comments: 60ML WATER FLUSH BEFORE AND AFTER EACH BOLUS Rx Instructions: 237 mL via feeding tube 0900,1200,1500,1800,2100; ondansetron 8 mg tablet,disintegrating 8 mg PO Q8H PRN (Reason: nausea and vomiting) 30 Days Qty: 30 0RF nystatin 100,000 unit/mL suspension 5 ml PO 4X/DAY Rx Instructions: swish and swallow omeprazole 10 mg capsule,delayed release(DR/EC) See Rx Instructions feeding tube DAILY Rx Instructions: 10ML via feeding tube daily; amiodarone 200 mg tablet 200 mg feeding tube DAILY Qty: 30 11RF rosuvastatin [Crestor] 20 MG tablet 20 mg feeding tube QHS Qty: 1 0RF Patient Comments: decrease cholesterol Eliquis 5 mg tablet 5 mg feeding tube BID Qty: 60 11RF sulfamethoxazole-trimethoprim 1 tab G-tube DAILY Qty: 1 0RF Rx Instructions: 1 tablet daily on m , thursday, thursday dexamethasone 4 mg tablet 4 mg PO BID Rx Instructions: 3 DAYS PRIOR TO AND 1 DAY AFTER CHEMO Referrals / Follow Up: Mikayla Lopez MD [Primary Care Provider] - Within 1 Week Disposition Disposition (needs filled in before D/C Order can be placed): Home, Self Care Charges/Coding Visit Charges Inpatient E&M: 54742 Disch Hosp >30min
--- NOTE | 2023-03-24 12:16 | CASEMGMT ---
Addendum entered by Naomy Zuleta 03/24/23 12:24: Email sent to palliative care that the pt will be DC today. Original Note: Pt brought a portable tank for pt DC today. Pt family will drive the pt home. Pt states they are used to and comfortable caring for his tube feeds at home. Pt states that he is ready for DC home and that he has a walker as well. Pt denies any further needs at this time.
[2023-03-24 13:06] VITALS: BP 132/40; PULSE 73; RESP 18; TEMP 36.8; O2SAT 92
[2023-03-24] MEDS: 0.9 % NaCl (Sterile) Posiflush 10 mL IV (13:23)
--- NOTE | 2023-03-24 14:24 | CHAPLAIN ---
Type of Pastoral Visit _x__ Initial Visit ___ Follow-up Visit ___ On-call Visit ___ General Patient Visit ___ Spiritual Assessment ___ Family Conference ___ Bereavement ___ Rapid Response ___ Code Blue ___ Other (describe below) Pastoral Care Referral From _x__ Patient ___ Family ___ Nurse ___ Physician ___ Supervisor Edging ___ Bulk Driver ___ Other (describe below) Sacrament/Intervention _x__ Active listening ___ Anointing ___ Episcopalian ___ Bereavement ___ Communion ___ Shanell exploration ___ ___ Life review ___ Prayer ___ Reconciliation ___ Sacrament of Sick _x__ Supportive presence ___ Wedding ___ Other (describe below) Pastoral Comments patient was coming back in a wheelchair from being taken downstairs to the waiting area for a change of scenery; pt is alert and happy looking; pt states that he feels better and wonders about going home since he is doing so well; pt will be discharged later today; family members are with him in the room; pt welcomes prayers and the time for casual conversation
[2023-03-25 14:29] LABS: Pathologist Review Reviewed
== END 2023-03-24 13:42 | disposition home or self-care (01) | DRG 871 ==
LOC: ED 17:45 → MS3 18:05
PROVIDERS: Internal Medicine; Admitting Provider Internal Medicine; Emergency Provider Emergency Medicine; PCP Internal Medicine; Visit Provider Internal Medicine
DX: R78.81 Bacteremia (principal); D61.810 Antineoplastic chemotherapy induced pancytopenia; N18.6 End stage renal disease; I13.2 Hypertensive heart and chronic kidney disease with heart failure and with stage 5 chronic kidney disease, or end stage renal disease; B37.0 Candidal stomatitis; N13.8 Other obstructive and reflux uropathy; C15.9 Malignant neoplasm of esophagus, unspecified; C78.00 Secondary malignant neoplasm of unspecified lung; I50.32 Chronic diastolic (congestive) heart failure; Z94.0 Kidney transplant status; E11.22 Type 2 diabetes mellitus with diabetic chronic kidney disease; E11.42 Type 2 diabetes mellitus with diabetic polyneuropathy; E11.21 Type 2 diabetes mellitus with diabetic nephropathy; Z79.4 Long term (current) use of insulin; I48.0 Paroxysmal atrial fibrillation; Z89.431 Acquired absence of right foot; Z93.1 Gastrostomy status; D63.0 Anemia in neoplastic disease; I25.10 Atherosclerotic heart disease of native coronary artery without angina pectoris; E78.5 Hyperlipidemia, unspecified; K21.9 Gastro-esophageal reflux disease without esophagitis; I25.2 Old myocardial infarction; Z89.022 Acquired absence of left finger(s); Z96.41 Presence of insulin pump (external) (internal); T45.1X5A Adverse effect of antineoplastic and immunosuppressive drugs, initial encounter; N40.1 Benign prostatic hyperplasia with lower urinary tract symptoms; B96.1 Klebsiella pneumoniae [K. pneumoniae] as the cause of diseases classified elsewhere; Z66 Do not resuscitate; Z79.01 Long term (current) use of anticoagulants; Z79.52 Long term (current) use of systemic steroids; Z79.899 Other long term (current) drug therapy; Z87.891 Personal history of nicotine dependence
CPT/HCPCS: 36415; 71046; 80053; 81001; 82962; 83605; 83735; 84100; 84145; 85025; 85610; 85730; 87040; 87070; 87077; 87086; 87088; 87186; 87205; 87449; 87631; 87633; 94640; 94668; 97802; 99252; 99283; J7030; J7050; A4216; G0463

== ENCOUNTER 2023-06-08 09:29 | Inpatient (IN) | payer OTHER, SELFPAY ==
[2023-06-08] VITALS (8 sets, daily range): BP systolic 100–148; BP diastolic 50–77; PULSE 66–72; RESP 16–28; TEMP 36.9; O2SAT 91–99; BMI 26.7
--- NOTE | 2023-06-08 09:50 | RAD_ITS ---
STUDY: X-RAY CHEST REASON FOR EXAM: Male, 72 years old. Weakness, hemoptysis . History of esophageal cancer. TECHNIQUE: Single AP portable view of the chest. COMPARISON: Comparison is made with prior study dated March 20, 2023. FINDINGS: A left-sided pre catheter seen with the tip at the junction of the superior vena cava and right atrium. EKG electrodes are seen. There is a new 2.8 cm x 3 cm nodule in the left lower lobe. A neoplastic process should be ruled out. Elevation of the right hemidiaphragm. There is no demonstrated pleural abnormality. There is mild cardiac enlargement. Normal mediastinum and wolf. Normal visualized pulmonary arteries. There is atherosclerotic calcification of the aortic arch with tortuosity. There are diffuse degenerative changes of the visualized thoracic spine. Normal visualized ribs, clavicles, and shoulders. There is no demonstrated abnormality of the visualized soft tissue structures of the upper abdomen. RAD/Chest 1 View (Portable) IMPRESSION: There is a new 3 cm x 2.8 cm nodule in the left lower lobe. A neoplastic process should be ruled out. Electronically Signed: Ramesh Coello MD at 10:40 EDT ,
--- NOTE | 2023-06-08 09:51 | EKG12_ITS ---
Test Reason : GI BLEED Blood Pressure : / mmHG Vent. Rate : 072 BPM Atrial Rate : 072 BPM P-R Int : 176 ms QRS Dur : 086 ms QT Int : 424 ms P-R-T Axes : 007 -68 010 degrees QTc Int : 464 ms Normal sinus rhythm Left anterior fascicular block Abnormal ECG Confirmed by Zachariah Webber ([id number]), photography editor ADOLFO SIDDIQUI ([id number]) on 06/10/2023 5:42:37 AM Referred By: Confirmed By:Zachariah Webber
--- NOTE | 2023-06-08 09:55 | EX.ED.DYSGE1 ---
HPI History of Present Illness Chief Complaint: GI Bleed Informant: patient and family Narrative Narrative: Patient is a 72-year-old male with extensive past medical history including esophageal cancer s/p radiation and currently on chemotherapy, a fib on Eliquis ( held dose today), insulin-dependent diabetes mellitus and prior renal transplant presenting with coughing up blood and generalized weakness. Patient notes that he has had episodes for the past 5 days (not today) where he is clearing his throat and is coughing up about 3 tablespoons total of blood and clots. This will last for about 15 to 20 minutes and is usually in the morning. He feels strongly that is coming from his esophagus and it is not coming from his lungs. Denies any significant shortness of breath. Does not have an episode this morning. Has been feeling generally weak as well. Denies any fever (did have a fever 2 weeks ago which resolved on its own). Denies any black or blood in stool. Did recently reintroduce food into his diet after about a year of just using his PEG tube. This was 2 to 3 weeks ago. PEG tube seems to be working fine however and is flushing well. Has been having regular bowel movements. Denies any urinary symptoms or hematuria. Has some chronic mid chest/esophageal pain which is unchanged. No other complaints or concerns at this time. Family notes he did look a little pale today. Currently denies any lightheadedness or syncopal episodes. [facility] Medical History Ambulates with cane Amputation finger Amputation of toe Anemia Anemia of chronic disease Atrial fibrillation Bilateral edema of lower extremity Charcot's joint of foot Chemotherapy adverse reaction Chronic renal failure Coronary artery disease Diabetes mellitus, type II Diabetic foot ulcer associated with diabetes mellitus due to underlying condition Diabetic neuropathy associated with type 2 diabetes mellitus Dialysis AV fistula malfunction Esophageal cancer Esophageal cancer Esophageal cancer Esophageal dysphagia Esophageal stricture Fever Finger osteomyelitis, left Gastric reflux Gastrostomy tube dependent History of steroid therapy HLD (hyperlipidemia) Hyperglycemia due to diabetes mellitus Hypertension Hypertension Hyponatremia Hypoxia Insulin dependent diabetes mellitus Insulin pump titration Nephropathy, diabetic Neuropathy in diabetes NSTEMI (non-ST elevated myocardial infarction) Obesity Presence of insulin pump Wears dentures Wears glasses Wears hearing aid Home Medications prednisone 2.5 mg tablet 5 mg PO DAILY steriod 03/11/16 [History Last Taken 03/20/23] insulin aspart U-100 100 unit/mL (3 mL) subcutaneous pen (Novolog FlexPen U-100 Insulin aspart) See Protocol subcut CONT DM 02/06/18 [History Last Taken 03/20/23] lactose-reduced food with fiber 0.06 gram-1.5 kcal/mL oral liquid (Jevity 1.5 Victorino) 237 ml feeding tube .COMPLEX NUTRITION 10/16/22 [History Last Taken 03/20/23] ondansetron 8 mg disintegrating tablet 8 mg PO Q8H PRN nausea and vomiting 30 days #30 tabs 10/17/22 [Rx Last Taken Unknown] nystatin 100,000 unit/mL oral suspension 5 ml PO 4X/DAY MOUTH 10/24/22 [History Last Taken 03/20/23] omeprazole 10 mg capsule,delayed release See Rx Instructions feeding tube DAILY reflux 10/24/22 [History Last Taken 03/20/23] amiodarone 200 mg tablet 200 mg feeding tube DAILY heart #30 tabs 01/21/23 [Rx Last Taken 03/20/23] apixaban 5 mg tablet (Eliquis) 5 mg feeding tube BID #60 tabs 01/21/23 [Rx Last Taken 03/20/23] rosuvastatin 20 mg tablet (Crestor) 20 mg feeding tube QHS cholesterol #1 TAB 01/21/23 [Rx Last Taken 03/19/23] sulfamethoxazole-trimethoprim 1 tab G-tube DAILY antibiotic #1 TAB 01/21/23 [Rx Last Taken 03/20/23] olanzapine 5 mg tablet 5 mg PO BID after chemo 02/14/23 [History Last Taken 03/20/23] tacrolimus 0.5 mg capsule, immediate-release (Prograf) 0.5 mg PO .COMPLEX organ rejection 02/14/23 [History Last Taken 03/20/23] terazosin 5 mg capsule 5 mg PO QHS BP 02/14/23 [History Last Taken 03/19/23] albuterol sulfate 90 mcg/actuation aerosol inhaler (Ventolin HFA) 2 puff inhalation Q4H PRN shortness of breath or wheezing #18 grams 03/03/23 [Rx Last Taken Unknown] bumetanide 1 mg tablet 0.5 mg PO DAILY 03/03/23 [History Last Taken 03/20/23] metoprolol tartrate 25 mg tablet 25 mg PO BID #60 tabs 03/19/23 [Rx Last Taken 03/20/23] dexamethasone 4 mg tablet 4 mg PO BID 03/20/23 [History Last Taken 03/20/23] Allergy/AdvReac Type Severity Reaction Status Date / Time diphenhydramine AdvReac Mild jittery/ Verified 04/22/23 11:08 [From Benadryl] anxious Family History Mother Kidney disease Hypertension High cholesterol Diabetes Father Kidney disease Hypertension High cholesterol Diabetes Surgical History Amputation of foot Hx of kidney transplant Hx of surgical amputation of finger Insulin pump status Renal transplant recipient Renal transplant recipient Social History household members: spouse, family and children Smoking Status: Former smoker how long ago did patient quit smoking: Quit~ 50 years prior smoked youth until quit 2 ppd. alcohol intake: former details: Drank heavily in youth, stopped ~ 50 years prior. substance use type: does not use what type of physical activity do you participate in: walking ROS ROS ED Constitutional Constitutional ED: Reports other Details: Generalized weakness ; Denies chills or fever(s) Eyes Eyes: Denies change in vision ENT ENT ED: Reports other Details: Denies any epistaxis ; Denies rhinorrhea or sore throat Cardiovascular Cardiovascular: Denies chest pain Respiratory/Chest Respiratory/Chest: Denies cough, dyspnea or dyspnea on exertion Gastrointestinal Gastrointestinal: Reports other Details: Coughing/vomiting blood ; Denies abdominal pain, diarrhea, melena or nausea Genitourinary Genitourinary ED: Denies dysuria or hematuria Musculoskeletal Musculoskeletal: Denies arthralgias or myalgias Integumentary Denies rash Neurologic Neurologic: Reports weakness; Denies headache(s) Hematologic/Lymphatic Hematologic/Lymphatic: Reports easy bleeding and easy bruising EXAM Physical Exam Const Vital Signs: 06/08/23 09:30 06/08/23 10:25 06/08/23 12:00 Temperature 98.4 F Temperature Source Temporal Pulse Rate 71 69 Respiratory Rate 18 22 H 21 H Blood Pressure 105/77 107/50 L 102/54 L Blood Pressure Mean 86 69 70 Pulse Ox 94 96 Oxygen Delivery Method Room Air Room Air Room Air Oxygen Flow Rate (L/min) 06/08/23 14:00 Temperature Temperature Source Pulse Rate 66 Respiratory Rate 28 H Blood Pressure 104/58 L Blood Pressure Mean 73 Pulse Ox 96 Oxygen Delivery Method Nasal Cannula Oxygen Flow Rate (L/min) 2 Positive well nourished and well developed General Appearance ED: well developed and diaphoretic; Negative for pallor HEENT Reports dry mucous membranes HEENT Narrative: No signs of epistaxis. No blood noted in the mouth. Mouth ED: Yes dry mucous membranes Mouth: dry mucous membranes Eyes PERRL and EOMs intact bilaterally General Eye ED: Negative for pale conjunctiva Neck supple and no JVD Chest Wall inspection of chest normal and palpation of chest normal Resp normal respiratory effort and clear to auscultation bilaterally Cardio regular rate, regular rhythm and no murmurs GI normal to inspection, nondistended, normoactive bowel sounds and non-tender GI Narrative: PEG tube in place Extremity Extremity Narrative: Chronic appearing edema of the lower extremities (left worse than right). General Extremety ED: Yes edema General Extremity: edema Neuro oriented x3 Sensorium / Orientation: alert Motor Exam: Negative for general weakness Psych mental status grossly normal Skin no rashes or lesions noted and no wounds General Skin Exam: Negative for jaundice or pallor MDM MDM MDM Narrative Medical decision making narrative: Patient evaluated for 5 days episodes of hemoptysis versus hematemesis. Patient does have a history of esophageal cancer rate recently reintroduced and oral diet. He is on Eliquis. He is hemodynamic stable in the ER however his blood pressure is soft (105/77) which relatively is low for him. It looks that he runs more around 120-130 systolic. Entirely clear if this is hemoptysis versus hematemesis however we will aspirate his PEG tube and check labs including CBC, coags as well as a CMP and chest x-ray. Patient is breathing comfortably in the ER and has clear breath sounds. Will give IV fluids in the ER. Patient has a leukocytosis of 14.1 of uncertain clinical significance. This is higher than his baseline. His hemoglobin is 8.4 which is near his baseline but a little bit on the low side. His platelets are mildly low at 129. Lactate mildly elevated 2.0 and he does have a mild elevation of his BUN to creatinine ratio with an elevation of his BUN. Chart view shows he has had this level BUN in the past however. His Gastroccult is negative for blood. Nursing staff reports that it just was stomach contents. Lipase is normal. Chest x-ray viewed by myself as well as radiology does show new left lung nodule concerning for metastatic disease. No acute infiltrate. I am called into the room as patient is having an episode of hemoptysis versus hematemesis. CT of the chest is ordered and patient is ordered IV Zofran. Patient does have bright red blood coming up and I think it is more coming from his esophagus but he is not really retching or particularly coughing/hacking so it is difficult to determine. Type and screen is added on as well. Patient gaudencio hemodynamic stable in the emergency room. I discussed the case with patient's oncologist, Dr. Anthony, who agrees that patient likely to be transferred for further evaluation of likely bleeding esophageal mass that is also obstructing. This likely will require thoracic surgery. Family is agreeable. Patient is excepted at [facility] by Dr. Plasencia. Patient remains hemodynamically stable in the emergency room. Signed out pending bed availability. If bed does not become available in the next few hours likely will require admission here until bed is available at [facility]. Patient's PEG tube feeds are ordered in the meantime. If he has further bleeding or becomes hemodynamically unstable we will consider a blood transfusion however will hold at this time. Patient is likely does improve in the emergency room with IV fluids. Blood cultures are sent however will defer antibiotics at this time is there is no obvious worrisome infection and his leukocytosis could be reactive to the bleeding. At this time I do not think patient requires emergent reversal of his coagulopathy from Eliquis. He is hemodynamically stable and appears to have more of a chronic bleeding. Lab Data Attestation: I reviewed the patient's lab results. Labs: Laboratory Results - last 24 hr 06/08/23 06/08/23 06/08/23 10:10 11:53 14:30 WBC 14.1 H RBC 3.23 L Hgb 8.4 L Hct 27.4 L MCV 84.8 MCH 26.0 L MCHC 30.7 L RDW Std Deviation 61.1 H RDW Coeff of Ayaka 20.9 H Plt Count 129 L MPV 10.1 Immature Gran % (Auto) 0.900 Neut % (Auto) 90.7 H Lymph % (Auto) 2.7 L [place] % (Auto) 5.4 Eos % (Auto) 0.0 Baso % (Auto) 0.3 Absolute Neuts (auto) 12.8 H Absolute Lymphs (auto) 0.38 L Nucleated RBC % 0 Differential Comment SCANNED Anisocytosis 2+ Microcytosis 1+ Macrocytosis 1+ PT 18.3 H INR 1.5 Sodium 139 Potassium 4.2 Chloride 103 Carbon Dioxide 32.0 Anion Gap 4 L BUN 29 H Creatinine 0.96 Estim Creat Clear Calc 73.93 Est GFR (MDRD) Af Amer 100 Est GFR (MDRD) Non-Af 82 BUN/Creatinine Ratio 30.3 H Glucose 166 H Lactic Acid 2.0 1.2 Calcium 8.6 Total Bilirubin 0.50 AST 18 ALT 16 Alkaline Phosphatase 61 Total Protein 5.1 L Albumin 1.9 L Globulin 3.2 Albumin/Globulin Ratio 0.6 L Lipase 10 L Blood Type O POSITIVE Antibody Screen NEGATIVE Radiography Chest X-Ray - ED: 1 View, Read by ED Physician, Read by Radiologist and - (Chronic changes with new left lower lobe nodule/mass) Diagnostic Testing: Clinical Impression(s) from Imaging Studies Chest X-Ray 06/08/23 09:50 IMPRESSION: There is a new 3 cm x 2.8 cm nodule in the left lower lobe. A neoplastic process should be ruled out. Electronically Signed: Ramesh Coello MD at 10:40 EDT , Chest CT 06/08/23 10:51 IMPRESSION: Progressive dilatation of the proximal esophagus with masslike lesion within the mid and distal esophagus and mediastinum. Small bilateral effusions with bibasilar scarring worse in the right lower lobe. There is also evidence of scarring in the upper lobes worse on the right side most likely secondary to prior radiation. New 3.7 cm x 2.6 cm mass in the left lower lobe. Electronically Signed: Ramesh Coello MD at 11:54 EDT , Rhythm Strip Rhythm Strip: Sinus Rhythm Rate: 72 Ectopy: None EKG Initial EKG: Attestation: I personally reviewed and interpreted this EKG as follows: Interpretation: Sinus Rhythm Comments: Normal sinus rhythm at a rate of 72 bpm Left axis deviation Left anterior fascicular block present Normal ST segments Management Discussion w/another healthcare provider: Corporate General Manager and Other (Accepting physician-oncology at [facility]) Discharge Plan Triage Chief Complaint: GI Bleed ED Provider: Adilene Luis Dx/Rx/DC Orders Clinical Impression: Esophageal cancer, Anticoagulant long-term use, Esophageal bleeding, Anemia Prescriptions: No Action metoprolol tartrate 25 mg tablet 25 mg PO BID Qty: 60 11RF Rx Instructions: 1 tablet via G-tube twice daily bumetanide 1 mg tablet 0.5 mg PO DAILY albuterol sulfate [Ventolin HFA] 90 mcg/actuation HFA aerosol inhaler 2 puff inhalation Q4H PRN (Reason: shortness of breath or wheezing) Qty: 18 6RF prednisone 2.5 MG tablet 5 mg PO DAILY Patient Comments: STEROID insulin aspart U-100 [Novolog FlexPen U-100 Insulin] 100 UNITS/ML insulin pen See Protocol subcut CONT Protocol: 6. Sliding Scale Insulin Custom Condition: mg/dl range Dose/Route: Number of Units Instruction: using insulin pump Protocol Text: Custom Sliding Scale Rx Instructions: insulin pump olanzapine 5 mg tablet 5 mg PO BID Rx Instructions: FOR THREE DAYS AFTER EACH CHEMO tacrolimus [Prograf] 0.5 mg capsule 0.5 mg PO .COMPLEX Rx Instructions: 1mg in AM; 0.5 mg orally qhs; terazosin 5 mg capsule 5 mg PO QHS Jevity 1.5 Victorino 0.06 gram-1.5 kcal/mL liquid 237 ml feeding tube .COMPLEX Patient Comments: 60ML WATER FLUSH BEFORE AND AFTER EACH BOLUS Rx Instructions: 237 mL via feeding tube 0900,1200,1500,1800,2100; ondansetron 8 mg tablet,disintegrating 8 mg PO Q8H PRN (Reason: nausea and vomiting) 30 Days Qty: 30 0RF nystatin 100,000 unit/mL suspension 5 ml PO 4X/DAY Rx Instructions: swish and swallow omeprazole 10 mg capsule,delayed release(DR/EC) See Rx Instructions feeding tube DAILY Rx Instructions: 10ML via feeding tube daily; amiodarone 200 mg tablet 200 mg feeding tube DAILY Qty: 30 11RF rosuvastatin [Crestor] 20 MG tablet 20 mg feeding tube QHS Qty: 1 0RF Patient Comments: decrease cholesterol Eliquis 5 mg tablet 5 mg feeding tube BID Qty: 60 11RF sulfamethoxazole-trimethoprim 1 tab G-tube DAILY Qty: 1 0RF Rx Instructions: 1 tablet daily on m , thursday, thursday dexamethasone 4 mg tablet 4 mg PO BID Rx Instructions: 3 DAYS PRIOR TO AND 1 DAY AFTER CHEMO Primary Care Provider: Mikayla Lopez Referrals: Mikayla Lopez MD [Primary Care Provider] - Disposition Disposition: Acute Care Hospital Discharge Location: [facility]
[2023-06-08] MEDS: 0.9% Normal Saline (1000mL) 1,000 ML 1000 ML IV (10:22)
[2023-06-08 10:23] LABS: Absolute Lymphocyte Count 0.38 X10^3/uL (0.83-4.51); Absolute Neutrophil Count 12.8 X10^3/uL (2.0-7.7); Basophil# 0.04 X10^3/uL; Basophil% 0.3 % (0-1); Hematocrit 27.4 % (40-54); Hemoglobin 8.4 g/dL (13.0-16.5); Lymphocyte # 0.38 X10^3/ul (0.83-4.51); Lymphocyte % 2.7 % (19-41); Mean Corp Hgb Conc 30.7 g/dL (32-36); Mean Corpuscular Volume 84.8 fL (80-94); Mean Platelet Vol. 10.1 fl (6.2-12.0); Monocyte# 0.76 X10^3/uL; Monocyte% 5.4 % (0-10); NRBC Flagged by Analyzer 0 % (0-5); Neutrophil # 12.79 X10^3/uL (2.7-7.7); Neutrophil % 90.7 % (47-70); POSITIVE DIFFERENTIAL YES; POSITIVE MORPHOLOGY YES; Platelet Count 129 K/mm3 (150-450); RBC Distribution Width CV 20.9 % (11.6-14.6); RBC Distribution Width SD 61.1 fl (35.1-43.9); Red Blood Count 3.23 M/mm3 (4.6-6.2); White Blood Count 14.1 K/mm3 (4.4-11.0)
[2023-06-08 10:26] LABS: Differential Indicated SCAN CRITERIA MET
[2023-06-08 10:38] LABS: ALB/GLOB Ratio 0.6 RATIO (0.9-2.4); AST(SGOT) 18 U/L (15-37); Alanine Aminotransfer ALT/SGPT 16 U/L (16-61); Albumin, Serum 1.9 g/dL (3.2-5.0); Alkaline Phosphatase 61 U/L (45-117); Anion Gap 4 (5-15); BUN 29 mg/dL (7-18); BUN/Creat Ratio 30.3 RATIO (10-20); Calcium,Total 8.6 mg/dL (8.5-10.1); Chloride 103 mmol/L (98-107); Creatinine, Serum 0.96 mg/dL (0.70-1.30); EST Glomerular Filtration Rate 82 mL/min (>60); Est Glom Filt Rate - Afr Amer 100 mL/min (>60); Estimated Creatinine Clearance 73.93 ml/min; Globulin 3.2 g/dL (2.2-4.2); Glucose 166 mg/dL (74-106); Lipase 10 U/L (13-75); Potassium 4.2 mmol/L (3.5-5.1); Protein, Total 5.1 g/dL (6.4-8.2); Sodium Level 139 mmol/L (136-145)
[2023-06-08 10:51] LABS: Anisocytosis 2+; Differential Comment SCANNED; Macrocytosis 1+; Microcytosis 1+
--- NOTE | 2023-06-08 10:51 | CT_ITS ---
STUDY: CT CHEST WITHOUT CONTRAST REASON FOR EXAM: Male, 72 years old. Hemoptysis. History of esophageal cancer. RADIATION DOSAGE (If Supplied By Facility): CTDIvol = ( 13.67 ) mGy, DLP = ( 522.75 ) mGycm TECHNIQUE: Transaxial imaging was performed without the administration of intravenous contrast material. Multiplanar coronal and sagittal images were reformatted. Individualized dose optimization techniques were used for this CT. COMPARISON: Comparison is made with prior study February 18, 2023 and January 08, 2023. FINDINGS: CHEST A left-sided portacatheter is seen with tip in the superior vena cava. Small bilateral pleural effusions with evidence of bibasilar infiltrates. There is evidence of scarring in the lower lobes worse on the right side. There is a new 3.7 cm x 2.6 cm mass in the peripheral lateral aspect of the left lower lobe. There is no demonstrated pleural abnormality. There are calcifications of the coronary arteries. Minimal pericardial thickening. Dual-chamber pacemaker is seen. There is evidence of a distended proximal esophagus with retained food particles and fluid. There is evidence of a soft tissue mass in the midportion of the esophagus with extension into the posterior aspect of the distal trachea. This has progressed as compared to prior study. Normal hilar regions. Normal unenhanced pulmonary arteries. There is atherosclerotic calcification of the aortic arch with tortuosity and elongation of the aortic arch and descending thoracic aorta. There is demineralization of the thoracic spine. Loss of height of the mid dorsal vertebrae. Heterogeneous appearance of the thoracic vertebrae. Metastatic deposit should be ruled out. There is a 2.9 cm x 2.9 cm mass in the right adrenal gland. Marked atrophy of both kidneys with calcifications. Questionable 2.9 cm mass in the upper medial aspect of the left kidney. CT/Chest without Contrast IMPRESSION: Progressive dilatation of the proximal esophagus with masslike lesion within the mid and distal esophagus and mediastinum. Small bilateral effusions with bibasilar scarring worse in the right lower lobe. There is also evidence of scarring in the upper lobes worse on the right side most likely secondary to prior radiation. New 3.7 cm x 2.6 cm mass in the left lower lobe. Electronically Signed: Ramesh Coello MD at 11:54 EDT ,
[2023-06-08 10:53] LABS: International Normalized Ratio 1.5; Prothrombin Time (Protime)PT. 18.3 SECONDS (11.7-14.9)
[2023-06-08] MEDS: Ondansetron 4 MG/2 ML Vial IV (11:15)
--- NOTE | 2023-06-08 12:09 | ED.RN ---
pt began vomiting blood. dr. tarango notified and new order obtained for Zofran by WALTER Adame and given per order.
--- NOTE | 2023-06-08 14:08 | NURSING ---
ANTONIETA ANDRADE, [facility], FOR DR PAYAN
[2023-06-08 14:17] LABS: Reflex Lactate? Y
--- NOTE | 2023-06-08 14:18 | NURSING ---
ACCEPTED AT [facility], WAITING ON A BED
[2023-06-08 15:05] LABS: Lactic Acid 1.2 mmol/L (0.4-1.9)
[2023-06-08] MEDS: Jevity 1.5. 1,000 ML Bottle 240 ML GT ×2 (16:10→20:31)
[2023-06-08 18:20] LABS: Bacteria 0 SEEN /hpf (None Seen); Mucous, Urine 0 SEEN /hpf (<or=2+); Red Blood Cells-Urine 0 SEEN /hpf (0-5)
[2023-06-08 18:31] LABS: Color, Urine Yellow (Yellow); Glucose, Dipstick Normal (Normal); Ketone-Dipstick Negative (Negative); Leukocyte Esterase-Dipstick 25 /ul (Negative); Nitrite-Dipstick Negative (Negative); Occult Blood-Urine Negative /ul (Negative); Protein-Dipstick 15 mg/dl (Negative); Specific Gravity, Urine 1.005 (1.002-1.030); Urine Bilirubin Dipstick Negative (Negative); Urine Clarity Sl. Cloudy (Clear); Urine Urobilinogen Normal (Normal)
[2023-06-08 18:46] LABS: Squamous Epithelial Cells - UA 0-5 SEEN /hpf (0-5); White Blood Cells 0-5 SEEN /hpf (0-5)
[2023-06-08 18:47] LABS: Amorphous Sediment 1+ PHOS
[2023-06-09] VITALS (13 sets, daily range): BP systolic 111–139; BP diastolic 25–74; PULSE 64–91; RESP 16–22; TEMP 36.8–37.3; O2SAT 90–97; BMI 26.3
[2023-06-09] MEDS: Jevity 1.5. 1,000 ML Bottle 240 ML GT ×3 (00:35→20:39)
[2023-06-09] MEDS: Metoprolol Tartrate 50 MG Tablet PO (01:36)
[2023-06-09] MEDS: Tacrolimus 0.5 MG Capsule PO ×2 (01:36→20:39)
[2023-06-09] MEDS: Atorvastatin Calcium 40 MG Tablet PO (01:36)
--- NOTE | 2023-06-09 07:04 | ED.RN ---
CALLED [facility] FOR AN UPDATE ON TRANSFER, SPOKE WITH MARCELA. SHE STATED THERE IS STILL NOT A BED ASSIGNED FOR THE PT YET, BUT WILL KEEP US UPDATED.
--- NOTE | 2023-06-09 09:19 | PCM.HP.STD ---
HPI - General General Date of Admission: 06/09/23 Date of Service: 06/09/23 Chief Complaint: Coughing up blood/hematemesis. History of esophageal cancer HPI Narrative MAHAD SULLIVAN, is a 72 M with history of esophageal cancer diagnosed about a year ago on chemotherapy last one 1.5 weeks ago was sent by Dr. Pizarro for spitting out blood and/vomiting blood For last 2 days. Patient had about 5 episodes prior to coming to ER yesterday. Heart rate and blood pressure are controlled. Patient accepted in [facility] and waiting for bed for more than 6 hours therefore being admitted. Patient had radiation also about a year ago and has been swallowing good but for last 2 weeks he cannot swallow even clear liquid. He has PEG tube and is on Jevity, bolus feed 5 times a day. Patient denies aspirating or choking on the blood/fluid. No fever. Denies chest pain, chest pressure or shortness of breath but is feeling of some obstruction/blockage in the esophagus. Twelve-lead done in the EKG shows normal sinus rhythm with LAFB 72 beats.. QTc 464 ms. Patient hemoglobin is low. Labs discussed in detail in assessment plan. [facility] Medical History Ambulates with cane Amputation finger Amputation of toe Anemia Anemia of chronic disease Atrial fibrillation Bilateral edema of lower extremity Charcot's joint of foot Chemotherapy adverse reaction Chronic renal failure Coronary artery disease Diabetes mellitus, type II Diabetic foot ulcer associated with diabetes mellitus due to underlying condition Diabetic neuropathy associated with type 2 diabetes mellitus Dialysis AV fistula malfunction Esophageal cancer Esophageal cancer Esophageal cancer Esophageal dysphagia Esophageal stricture Fever Finger osteomyelitis, left Gastric reflux Gastrostomy tube dependent History of steroid therapy HLD (hyperlipidemia) Hyperglycemia due to diabetes mellitus Hypertension Hypertension Hyponatremia Hypoxia Insulin dependent diabetes mellitus Insulin pump titration Nephropathy, diabetic Neuropathy in diabetes NSTEMI (non-ST elevated myocardial infarction) Obesity Presence of insulin pump Wears dentures Wears glasses Wears hearing aid Home Medications prednisone 2.5 mg tablet 5 mg PO DAILY steriod 05/11/15 [History Last Taken 03/20/23] insulin aspart U-100 100 unit/mL (3 mL) subcutaneous pen (Novolog FlexPen U-100 Insulin aspart) See Protocol subcut CONT DM 02/06/18 [History Last Taken 03/20/23] lactose-reduced food with fiber 0.06 gram-1.5 kcal/mL oral liquid (Jevity 1.5 Victorino) 237 ml feeding tube .COMPLEX NUTRITION 10/16/22 [History Last Taken 03/20/23] ondansetron 8 mg disintegrating tablet 8 mg PO Q8H PRN nausea and vomiting 30 days #30 tabs 10/17/22 [Rx Last Taken Unknown] nystatin 100,000 unit/mL oral suspension 5 ml PO 4X/DAY MOUTH 10/24/22 [History Last Taken 03/20/23] omeprazole 10 mg capsule,delayed release See Rx Instructions feeding tube DAILY reflux 10/24/22 [History Last Taken 03/20/23] amiodarone 200 mg tablet 200 mg feeding tube DAILY heart #30 tabs 01/21/23 [Rx Last Taken 03/20/23] apixaban 5 mg tablet (Eliquis) 5 mg feeding tube BID #60 tabs 01/21/23 [Rx Last Taken 03/20/23] rosuvastatin 20 mg tablet (Crestor) 20 mg feeding tube QHS cholesterol #1 TAB 01/21/23 [Rx Last Taken 03/19/23] sulfamethoxazole-trimethoprim 1 tab G-tube DAILY antibiotic #1 TAB 01/21/23 [Rx Last Taken 03/20/23] olanzapine 5 mg tablet 5 mg PO BID after chemo 02/14/23 [History Last Taken 03/20/23] tacrolimus 0.5 mg capsule, immediate-release (Prograf) 0.5 mg PO .COMPLEX organ rejection 02/14/23 [History Last Taken 03/20/23] terazosin 5 mg capsule 5 mg PO QHS BP 02/14/23 [History Last Taken 03/19/23] albuterol sulfate 90 mcg/actuation aerosol inhaler (Ventolin HFA) 2 puff inhalation Q4H PRN shortness of breath or wheezing #18 grams 03/03/23 [Rx Last Taken Unknown] bumetanide 1 mg tablet 0.5 mg PO DAILY 03/03/23 [History Last Taken 03/20/23] metoprolol tartrate 25 mg tablet 25 mg PO BID #60 tabs 03/19/23 [Rx Last Taken 03/20/23] dexamethasone 4 mg tablet 4 mg PO BID 03/20/23 [History Last Taken 03/20/23] Allergy/AdvReac Type Severity Reaction Status Date / Time diphenhydramine AdvReac Mild jittery/ Verified 04/22/23 11:08 [From Rodo] anxious Family History Mother Kidney disease Hypertension High cholesterol Diabetes Father Kidney disease Hypertension High cholesterol Diabetes Surgical History Amputation of foot Hx of kidney transplant Hx of surgical amputation of finger Insulin pump status Renal transplant recipient Renal transplant recipient Social History household members: spouse, family and children Smoking Status: Former smoker how long ago did patient quit smoking: Quit~ 50 years prior smoked youth until quit 2 ppd. alcohol intake: former details: Drank heavily in youth, stopped ~ 50 years prior. substance use type: does not use what type of physical activity do you participate in: walking ROS ROS Narrative Constitutional: Reports fatigue and weakness. No fever. HEENT: Reports systems reviewed and no addt'l complaints, except as documented Respiratory/Chest: No acute shortness of breath or respiratory distress or wheezing. CVS: No chest pressure or tightness. Gastrointestinal: Esophageal cancer. Dysphagia. On PEG tube. Rest as described in HPI Genitourinary: Denies burning urination or new urinary tract symptoms Musculoskeletal: Denies acute joint pain or limited range of motion. No acute injury Neurologic: Denies seizure-like symptoms. skin: No ulcer. No rash Endocrinology: Reports systems reviewed and no addt'l complaints, except as documented Hematologic/Lymphatic: Reports systems reviewed and no addt'l complaints, except as documented Rest 14 ROS are negative except as mentioned in HPI Vital Signs Vital Signs Vital Signs: 06/08/23 09:30 06/08/23 10:25 06/08/23 12:00 Temperature 98.4 F Temperature Source Temporal Pulse Rate 71 69 Respiratory Rate 18 22 H 21 H Blood Pressure 105/77 107/50 L 102/54 L Blood Pressure Mean 86 69 70 Pulse Ox 94 96 Oxygen Delivery Method Room Air Room Air Room Air Oxygen Flow Rate (L/min) 06/08/23 14:00 06/08/23 16:00 06/08/23 18:00 Temperature Temperature Source Pulse Rate 66 71 72 Respiratory Rate 28 H 16 22 H Blood Pressure 104/58 L 100/57 L 106/56 L Blood Pressure Mean 73 71 72 Pulse Ox 96 91 99 Oxygen Delivery Method Nasal Cannula Nasal Cannula Nasal Cannula Oxygen Flow Rate (L/min) 2 2 06/08/23 20:00 06/08/23 22:00 06/09/23 00:00 Temperature Temperature Source Pulse Rate 72 76 Respiratory Rate 16 16 16 Blood Pressure 148/53 H 123/66 H 139/74 H Blood Pressure Mean 84 85 95 Pulse Ox 96 99 94 Oxygen Delivery Method Room Air Nasal Cannula Oxygen Flow Rate (L/min) 2 06/09/23 02:00 06/09/23 04:00 06/09/23 06:00 Temperature 98.5 F Temperature Source Oral Pulse Rate 64 64 67 Respiratory Rate 16 19 H 18 Blood Pressure 111/61 111/56 L 119/59 L Blood Pressure Mean 77 74 79 Pulse Ox 91 94 97 Oxygen Delivery Method Room Air Nasal Cannula Nasal Cannula Oxygen Flow Rate (L/min) 06/09/23 08:00 Temperature Temperature Source Pulse Rate 68 Respiratory Rate 18 Blood Pressure 120/60 Blood Pressure Mean 80 Pulse Ox 95 Oxygen Delivery Method Nasal Cannula Oxygen Flow Rate (L/min) Weight Weight: 188 lb 14.978 oz Body Mass Index (BMI) 26.7 Physical Exam Narrative General: Alert, Oriented x3, Cooperative HEENT: Atraumatic, PERRLA, EOMI, Normocephalic Oral: Oral mucosa dry. No Gingival or Mucosal Lesions/ Ulcerations Neck: Supple, No JVD, Negative Carotid Bruits Chest wall/Lungs: Air entry diminished in bilateral lung bases. No crepitation/rhonchi Cardiovascular: Regular rate, Regular Rhythm, Normal S1, Normal S2, No M/G/R Abdomen: Bowel Sounds Present, Soft, Non Tender, Non-Distended : No dysuria. No renal angle tenderness. No suprapubic tenderness. Extremities: No edema, Capillary Refill Less than 3 Seconds Skin: No rashes, No breakdown Musculoskeletal: No Tenderness to Palpation of Joints or Extremities. Status post right TMA in 2016 Neurological: Cranial nerves II-XII grossly intact, DTR 2+/4. No acute focal neurological deficit. Psych/Mental Status: Normal Affect, Appropriate. Results Lab / Micro Data 06/09/23 09:40 06/09/23 09:40 Labs: Laboratory Results - last 24 hr 06/08/23 10:10: WBC 14.1 H, RBC 3.23 L, Hgb 8.4 L, Hct 27.4 L, MCV 84.8, MCH 26.0 L, MCHC 30.7 L, RDW Std Deviation 61.1 H, RDW Coeff of [place] 20.9 H, Plt Count 129 L, MPV 10.1, Immature Gran % (Auto) 0.900, Neut % (Auto) 90.7 H, Lymph % (Auto) 2.7 L, [place] % (Auto) 5.4, Eos % (Auto) 0.0, Baso % (Auto) 0.3, Absolute Neuts (auto) 12.8 H, Absolute Lymphs (auto) 0.38 L, Nucleated RBC % 0, Differential Comment SCANNED, Anisocytosis 2+, Microcytosis 1+, Macrocytosis 1+, PT 18.3 H, INR 1.5, Sodium 139, Potassium 4.2, Chloride 103, Carbon Dioxide 32.0, Anion Gap 4 L, BUN 29 H, Creatinine 0.96, Estim Creat Clear Calc 73.93, Est GFR (MDRD) Af Amer 100, Est GFR (MDRD) Non-Af 82, BUN/Creatinine Ratio 30.3 H, Glucose 166 H, Lactic Acid 2.0, Calcium 8.6, Total Bilirubin 0.50, AST 18, ALT 16, Alkaline Phosphatase 61, Total Protein 5.1 L, Albumin 1.9 L, Globulin 3.2, Albumin/Globulin Ratio 0.6 L, Lipase 10 L 06/08/23 11:53: Blood Type O POSITIVE, Antibody Screen NEGATIVE 06/08/23 14:30: Lactic Acid 1.2 06/08/23 18:00: Urine Color Yellow, Urine Clarity Sl. Cloudy, Urine pH 7.0, Ur Specific [place] 1.005, Urine Protein 15 H, Urine Glucose (UA) Normal, Urine Ketones Negative, Urine Occult Blood Negative, Urine Nitrite Negative, Urine Bilirubin Negative, Urine Urobilinogen Normal, Ur Leukocyte Esterase 25 H, Urine RBC 0 SEEN, Urine WBC 0-5 SEEN, Ur Squamous Epith Cells 0-5 SEEN, Amorphous Sediment 1+ PHOS, Urine Bacteria 0 SEEN, Urine Mucus 0 SEEN Micro: Microbiology 06/08/23 10:17 Gastric Fluid/Contents Gastric Occult Blood - Final Rhythm Strip Rhythm Strip: Sinus Rhythm Rate: 72 Ectopy: None Imaging Radiology Impression Chest X-Ray 06/08/23 09:50 IMPRESSION: There is a new 3 cm x 2.8 cm nodule in the left lower lobe. A neoplastic process should be ruled out. Electronically Signed: Ramesh Coello MD at 10:40 EDT , Chest CT 06/08/23 10:51 IMPRESSION: Progressive dilatation of the proximal esophagus with masslike lesion within the mid and distal esophagus and mediastinum. Small bilateral effusions with bibasilar scarring worse in the right lower lobe. There is also evidence of scarring in the upper lobes worse on the right side most likely secondary to prior radiation. New 3.7 cm x 2.6 cm mass in the left lower lobe. Electronically Signed: Ramesh Coello MD at 11:54 EDT , Assessment & Plan Assessment/Plan (1) Esophageal bleeding: (2) Anemia: PLAN: Plan This is 72-year-old gentleman with history of esophageal cancer is being admitted for hematemesis/hemoptysis from esophageal cancer. 1. Esophageal cancer with bleeding/upper GI bleed and dysphagia with possible metastasis to lung/pulmonary nodule: Patient is being admitted temporarily in transit to [facility]. They do not have bed. IV PPI every 12 hourly ordered. Patient has PEG tube for feeding. Patient on about 240 mL 5 times a day tube feed, Jevity 1.2. As a precaution for aspiration, decreased to 3 times daily. Discussed with the biofuels product development manager. IV fluid ordered for hydration as patient is mildly dehydrated. During previous admission patient was found to have pulmonary nodule in March 2023 suspected metastatic lung disease from esophageal cancer. 2. Acute blood loss anemia with chronic severe normocytic anemia most likely from esophageal cancer: Patient baseline hemoglobin runs around 9 g. Was admitted with 8.4 dropped to 7.8 g. Monitor H&H every 6 hourly. If hemoglobin drops less than 7 g will need PRBC transfusion. Hemodynamically heart rate and blood pressure are controlled 3. Chronic congestive heart failure with preserved ejection fraction ? Hold diuretic therapy as patient is mildly dehydrated. 2D echo from 11/27/2022 demonstrated EF of 70% with mild concentric left ventricular hypertrophy. 4. History of renal transplant ? Secondary to diabetic nephropathy. continue patient antirejection medications, tacrolimus 5. Paroxysmal atrial fibrillation on amiodarone and apixaban: Hold apixaban as patient severe anemia. Continue amiodarone for rate control strategy. 6. Diabetes mellitus type 2 ? Patient is on insulin pump 7. Hypertension - Blood pressure controlled, BP 123/55. Hold antihypertensive medications. 8. Dyslipidemia -Patient is on statin therapy, continued at home dose 9. Anemia - Secondary to chronic disorder monitoring H&H and transfuse if patient becomes symptomatic or hemoglobin falls below 7 10. Physical deconditioning - Requested for PT OT eval and certified social workers in health care to assist with discharge planning DVT prophylaxis, high risk with history of esophageal cancer and paroxysmal A-fib: Pharmacological prophylaxis contraindicated. Bilateral SCDs Living will/advanced directive/end of life care: Patient does have living will or advanced directive. His is power of commercial real estate attorney for health. After discussion of benefits/risks procedures involved with full code, DNR CC arrest and DNR CC, the patient opted for DNR CC arrest with no intubation Patient doesn't want artificial life support including intubation, tube feed, ventilator and/chest compression, central venous catheter, vasopressor and DC shock if needed Total time spent in [id number] encounter in discussion of advanced directive 17 minutes. Charges/Coding Visit Charges Inpatient E&M: 39640 Init Hosp L3 Procedures Hospitalists Procedures: 55599 Advncd Care Plan 30 Min
[2023-06-09 09:48] LABS: Absolute Lymphocyte Count 0.62 X10^3/uL (0.83-4.51); Absolute Neutrophil Count 7.2 X10^3/uL (2.0-7.7); Basophil# 0.03 X10^3/uL; Basophil% 0.3 % (0-1); Eosinophil# 0.01 X10^3/uL; Eosinophils% 0.1 % (0-5); Hematocrit 25.7 % (40-54); Hemoglobin 7.8 g/dL (13.0-16.5); Lymphocyte # 0.62 X10^3/ul (0.83-4.51); Lymphocyte % 7.2 % (19-41); Mean Corp Hgb Conc 30.4 g/dL (32-36); Mean Corpuscular Volume 85.7 fL (80-94); Mean Platelet Vol. 9.9 fl (6.2-12.0); Monocyte# 0.64 X10^3/uL; Monocyte% 7.5 % (0-10); NRBC Flagged by Analyzer 0 % (0-5); Neutrophil # 7.19 X10^3/uL (2.7-7.7); Neutrophil % 83.7 % (47-70); POSITIVE MORPHOLOGY YES; Platelet Count 117 K/mm3 (150-450); RBC Distribution Width CV 20.9 % (11.6-14.6); RBC Distribution Width SD 62.3 fl (35.1-43.9); White Blood Count 8.6 K/mm3 (4.4-11.0)
[2023-06-09 09:51] LABS: Differential Indicated SCAN CRITERIA MET
[2023-06-09 10:01] LABS: International Normalized Ratio 1.3; Prothrombin Time (Protime)PT. 16.3 SECONDS (11.7-14.9)
[2023-06-09 10:08] LABS: Anisocytosis 2+; Differential Comment SCANNED; Macrocytosis 1+; Microcytosis 1+
[2023-06-09] MEDS: Lactated Ringers 1,000 ML 75 ML IV ×2 (11:32→23:23)
[2023-06-09] MEDS: Pantoprazole Sodium 40 MG in 0.9% Normal Saline (100mL MB+) 100 ML 330 MG IV ×2 (11:41→20:37)
[2023-06-09 11:48] LABS: ALB/GLOB Ratio 0.5 RATIO (0.9-2.4); AST(SGOT) 15 U/L (15-37); Alanine Aminotransfer ALT/SGPT 14 U/L (16-61); Albumin, Serum 1.7 g/dL (3.2-5.0); Alkaline Phosphatase 57 U/L (45-117); Anion Gap 3 (5-15); BUN 25 mg/dL (7-18); BUN/Creat Ratio 30.9 RATIO (10-20); Calcium,Total 8.6 mg/dL (8.5-10.1); Chloride 107 mmol/L (98-107); Creatinine, Serum 0.81 mg/dL (0.70-1.30); EST Glomerular Filtration Rate 100 mL/min (>60); Est Glom Filt Rate - Afr Amer 121 mL/min (>60); Estimated Creatinine Clearance 87.62 ml/min; Globulin 3.1 g/dL (2.2-4.2); Glucose 110 mg/dL (74-106); Potassium 4.4 mmol/L (3.5-5.1); Protein, Total 4.8 g/dL (6.4-8.2); Sodium Level 141 mmol/L (136-145)
[2023-06-09 12:07] LABS: Bedside Glucose 94 mg/dL (74-106)
[2023-06-09 14:25] LABS: Hematocrit 28.3 % (40-54); Hemoglobin 8.4 g/dL (13.0-16.5)
[2023-06-09] MEDS: Amiodarone 200 MG Tablet GT (15:14)
[2023-06-09 17:37] LABS: Bedside Glucose 132 mg/dL (74-106)
[2023-06-09] MEDS: proCHLORPERazine 10 MG/2 ML Vial 5 MG IV (19:58)
[2023-06-09 20:29] LABS: Hematocrit 27.2 % (40-54); Hemoglobin 8.4 g/dL (13.0-16.5)
[2023-06-09] MEDS: Atorvastatin Calcium 40 MG Tablet GT (20:38)
[2023-06-09] MEDS: Metoprolol Tartrate 25 MG Tablet GT (20:38)
--- NOTE | 2023-06-09 21:44 | NURSING ---
pt using own insulin pump. pt states his glucose was 132 and he gave himself 7.3 units around 1800 after his bolus tube feed. Glucose was 106 and pt gave another 6.8 units after his bolus tube feed at 2100
[2023-06-10 02:00] VITALS: BP 135/60; PULSE 75; RESP 18; TEMP 37.2; O2SAT 92
[2023-06-10] MEDS: Acetaminophen 325 MG Tablet 650 MG PO ×3 (07:33→21:05)
[2023-06-10 07:35] VITALS: PULSE 87
[2023-06-10] MEDS: Metoprolol Tartrate 25 MG Tablet GT ×2 (07:35→21:05)
[2023-06-10] MEDS: Jevity 1.5. 1,000 ML Bottle 240 ML GT ×3 (07:35→21:06)
[2023-06-10] MEDS: Tacrolimus Anhydrous 1 MG Capsule PO (07:35)
[2023-06-10] MEDS: Amiodarone 200 MG Tablet GT (07:35)
[2023-06-10 08:00] VITALS: BP 137/65; PULSE 77; RESP 18; TEMP 36.6; O2SAT 94
[2023-06-10] MEDS: Pantoprazole Sodium 40 MG in 0.9% Normal Saline (100mL MB+) 100 ML 330 MG IV ×2 (08:14→21:06)
--- NOTE | 2023-06-10 14:23 | PCM.PN.HOSP ---
Reason for Visit Reason for Visit: Diagnoses Anemia, unspecified (06/09/23) Other specified disease of esophagus (06/09/23) Objective Data Objective Data Vital Signs: Vital Signs Temp Pulse Resp BP Pulse Ox O2 Del Method O2 Flow Rate 97.9 F 77 18 137/65 H 94 Room Air 2 06/10/23 08:00 06/10/23 08:00 06/10/23 08:00 06/10/23 08:00 06/10/23 08:00 06/10/23 08:00 06/09/23 14:00 Oxygen Flow Rate (L/min) 2 Oxygen Delivery Method Room Air Weight: 186 lb 1.122 oz Body Mass Index (BMI) 26.3 Intake & Output: Intake and Output for Last 24 Hours 06/08/23 06/09/23 06/10/23 23:59 23:59 23:59 Intake Total 2128.75 / 2128.75 2450 / 2450 Balance 2128.75 / 2128.75 2450 / 2450 Lab / Micro Data 06/09/23 20:12 06/09/23 09:40 Labs: Laboratory Results - last 24 hr 06/09/23 14:15: Hgb 8.4 L, Hct 28.3 L 06/09/23 17:19: POC Glucose 132 H 06/09/23 20:12: Hgb 8.4 L, Hct 27.2 L Micro: Microbiology 06/08/23 10:17 Gastric Fluid/Contents Gastric Occult Blood - Final Rhythm Strip Rhythm Strip: Sinus Rhythm Rate: 72 Ectopy: None Physical Exam Narrative Seen and examined. No acute issues including hematemesis or melena. Hemoptysis has also gotten better. No fever. Physical exam General: Alert, Oriented x3, Cooperative HEENT: Atraumatic, PERRLA, EOMI, Normocephalic Oral: Oral mucosa dry. No Gingival or Mucosal Lesions/ Ulcerations Neck: Supple, No JVD, Negative Carotid Bruits Chest wall/Lungs: Air entry diminished in bilateral lung bases. No crepitation/rhonchi Cardiovascular: Regular rate, Regular Rhythm, Normal S1, Normal S2, No M/G/R Abdomen: Bowel Sounds Present, Soft, Non Tender, Non-Distended : No dysuria. No renal angle tenderness. No suprapubic tenderness. Extremities: No edema, Capillary Refill Less than 3 Seconds Skin: No rashes, No breakdown Musculoskeletal: No Tenderness to Palpation of Joints or Extremities. Status post right TMA in 2016 Neurological: Cranial nerves II-XII grossly intact, DTR 2+/4. No acute focal neurological deficit. Psych/Mental Status: Normal Affect, Appropriate. Assessment & Plan Assessment/Plan (1) Esophageal bleeding: (2) Anemia: PLAN: Plan This is 72-year-old gentleman with history of esophageal cancer is being admitted for hematemesis/hemoptysis from esophageal cancer. 1. Esophageal cancer with bleeding/upper GI bleed and dysphagia with possible metastasis to lung/pulmonary nodule: Patient is being admitted temporarily in transit to [facility]. They do not have bed. IV PPI every 12 hourly ordered. Patient has PEG tube for feeding. Patient on about 240 mL 5 times a day tube feed, Jevity 1.2. As a precaution for aspiration, decreased to 3 times daily. Discussed with the child and family therapist. IV fluid ordered for hydration as patient is mildly dehydrated. During previous admission patient was found to have pulmonary nodule in March 2023 suspected metastatic lung disease from esophageal cancer. 06/09: Surprisingly, hemoglobin improved from 7.8-8.4 without giving PRBC transfusion. Still pending transfer to [facility]. 2. Acute blood loss anemia with chronic severe normocytic anemia most likely from esophageal cancer: Patient baseline hemoglobin runs around 9 g. Was admitted with 8.4 dropped to 7.8 g. Monitor H&H every 6 hourly. If hemoglobin drops less than 7 g will need PRBC transfusion. Hemodynamically heart rate and blood pressure are controlled 3. Chronic congestive heart failure with preserved ejection fraction ? Hold diuretic therapy as patient is mildly dehydrated. 2D echo from 11/27/2022 demonstrated EF of 70% with mild concentric left ventricular hypertrophy. 4. History of renal transplant ? Secondary to diabetic nephropathy. continue patient antirejection medications, tacrolimus 5. Paroxysmal atrial fibrillation on amiodarone and apixaban: Hold apixaban as patient severe anemia. Continue amiodarone for rate control strategy. 6. Diabetes mellitus type 2 ? Patient is on insulin pump 06/09: Glucose is reasonably controlled around 120s. 7. Hypertension - Blood pressure controlled, BP 123/55. Hold antihypertensive medications. 06/09: Blood pressure is controlled. 8. Dyslipidemia -Patient is on statin therapy, continued at home dose 9. Anemia - Secondary to chronic disorder monitoring H&H and transfuse if patient becomes symptomatic or hemoglobin falls below 7 10. Physical deconditioning - Requested for PT OT eval and social contact worker to assist with discharge planning DVT prophylaxis, high risk with history of esophageal cancer and paroxysmal A-fib: Pharmacological prophylaxis contraindicated. Bilateral SCDs Living will/advanced directive/end of life care: Patient does have living will or advanced directive. His is power of compliance attorney for health. After discussion of benefits/risks procedures involved with full code, DNR CC arrest and DNR CC, the patient opted for DNR CC arrest with no intubation Patient doesn't want artificial life support including intubation, tube feed, ventilator and/chest compression, central venous catheter, vasopressor and DC shock if needed Total time spent in [id number] encounter in discussion of advanced directive 17 minutes. Charges/Coding Visit Charges Inpatient E&M: 34423 Subs Hosp L2
[2023-06-10 20:59] VITALS: BP 148/64; PULSE 83; RESP 18; TEMP 36.6; O2SAT 95
[2023-06-10 21:05] VITALS: PULSE 83
[2023-06-10] MEDS: Atorvastatin Calcium 40 MG Tablet GT (21:05)
[2023-06-10] MEDS: Tacrolimus 0.5 MG Capsule PO (21:06)
[2023-06-10] MEDS: 0.9 % NaCl (Sterile) Posiflush 10 mL IV (21:06)
[2023-06-11] VITALS (7 sets, daily range): BP systolic 132–151; BP diastolic 67–74; PULSE 67–82; RESP 16–18; TEMP 36.4–37.1; O2SAT 92–96
[2023-06-11] MEDS: Acetaminophen 325 MG Tablet 650 MG PO ×3 (03:06→15:21)
[2023-06-11] MEDS: 0.9 % NaCl (Sterile) Posiflush 10 mL IV ×5 (03:07→21:33)
[2023-06-11 07:14] LABS: Absolute Lymphocyte Count 0.46 X10^3/uL (0.83-4.51); Absolute Neutrophil Count 5.6 X10^3/uL (2.0-7.7); Basophil# 0.02 X10^3/uL; Basophil% 0.3 % (0-1); Eosinophil# 0.02 X10^3/uL; Eosinophils% 0.3 % (0-5); Hemoglobin 7.7 g/dL (13.0-16.5); Lymphocyte # 0.46 X10^3/ul (0.83-4.51); Lymphocyte % 6.9 % (19-41); Mean Corp Hgb Conc 29.6 g/dL (32-36); Mean Corpuscular Hgb 25.1 pg (27.0-32.0); Mean Corpuscular Volume 84.7 fL (80-94); Mean Platelet Vol. 9.9 fl (6.2-12.0); Monocyte# 0.48 X10^3/uL; Monocyte% 7.2 % (0-10); NRBC Flagged by Analyzer 0 % (0-5); Neutrophil % 84.2 % (47-70); POSITIVE DIFFERENTIAL YES; POSITIVE MORPHOLOGY YES; Platelet Count 134 K/mm3 (150-450); RBC Distribution Width CV 20.6 % (11.6-14.6); RBC Distribution Width SD 60.3 fl (35.1-43.9); Red Blood Count 3.07 M/mm3 (4.6-6.2); White Blood Count 6.7 K/mm3 (4.4-11.0)
[2023-06-11 07:26] LABS: Differential Indicated SCAN CRITERIA MET
[2023-06-11 07:28] LABS: Anion Gap 1 (5-15); BUN 23 mg/dL (7-18); BUN/Creat Ratio 31.5 RATIO (10-20); Calcium,Total 8.7 mg/dL (8.5-10.1); Chloride 105 mmol/L (98-107); Creatinine, Serum 0.73 mg/dL (0.70-1.30); EST Glomerular Filtration Rate 113 mL/min (>60); Est Glom Filt Rate - Afr Amer 136 mL/min (>60); Estimated Creatinine Clearance 88.72 ml/min; Glucose 122 mg/dL (74-106); Potassium 4.2 mmol/L (3.5-5.1); Sodium Level 137 mmol/L (136-145)
[2023-06-11 07:57] LABS: Anisocytosis 1+; Differential Comment SCANNED
--- NOTE | 2023-06-11 08:40 | NURSING ---
I spoke with Cheo with [facility] transfer line he stated pt is on the wait list however they do not have a bed at this time.
[2023-06-11] MEDS: Jevity 1.5. 1,000 ML Bottle 240 ML GT ×3 (09:48→21:03)
[2023-06-11] MEDS: Morphine 2 MG/ML Syringe IV ×4 (09:49→21:33)
[2023-06-11] MEDS: Pantoprazole Sodium 40 MG in 0.9% Normal Saline (100mL MB+) 100 ML 330 MG IV ×2 (09:49→21:47)
[2023-06-11] MEDS: Amiodarone 200 MG Tablet GT (09:51)
[2023-06-11] MEDS: Tacrolimus Anhydrous 1 MG Capsule PO ×2 (09:51)
[2023-06-11] MEDS: Metoprolol Tartrate 25 MG Tablet GT ×2 (09:51→21:02)
--- NOTE | 2023-06-11 15:07 | PN.HOSP_ITS ---
Reason for Visit Reason for Visit: Diagnoses Anemia, unspecified (06/09/23) Other specified disease of esophagus (06/09/23) Objective Data Objective Data Vital Signs: Vital Signs Temp Pulse Resp BP Pulse Ox O2 Del Method O2 Flow Rate 98.7 F 82 16 132/68 H 92 Room Air 2 06/11/23 09:00 06/11/23 09:51 06/11/23 09:00 06/11/23 09:51 06/11/23 09:00 06/11/23 14:00 06/09/23 14:00 Oxygen Flow Rate (L/min) 2 Oxygen Delivery Method Room Air Weight: 186 lb 1.122 oz Body Mass Index (BMI) 26.3 Intake & Output: Intake and Output for Last 24 Hours 06/09/23 06/10/23 06/11/23 23:59 23:59 23:59 Intake Total 2128.75 / 2128.75 2900 / 2900 160 / 160 Balance 2128.75 / 2128.75 2900 / 2900 160 / 160 Lab / Micro Data 06/11/23 05:55 06/11/23 05:55 Labs: Laboratory Results - last 24 hr 06/11/23 05:55: WBC 6.7, RBC 3.07 L, Hgb 7.7 L, Hct 26.0 L, MCV 84.7, MCH 25.1 L , MCHC 29.6 L, RDW Std Deviation 60.3 H, RDW Coeff of [place] 20.6 H, Plt Count 134 L, MPV 9.9, Immature Gran % (Auto) 1.100 H, Neut % (Auto) 84.2 H, Lymph % (Auto) 6.9 L, [place] % (Auto) 7.2, Eos % (Auto) 0.3, Baso % (Auto) 0.3, Absolute Neuts (auto) 5.6, Absolute Lymphs (auto) 0.46 L, Nucleated RBC % 0, Differential Comment SCANNED, Anisocytosis 1+, Sodium 137, Potassium 4.2, Chloride 105, Carb on Dioxide 31.0, Anion Gap 1 L, BUN 23 H, Creatinine 0.73, Estim Creat Clear Calc 88.72, Est GFR (MDRD) Af Amer 136, Est GFR (MDRD) Non-Af 113, BUN/Creatinine Ratio 31.5 H, Glucose 122 H, Calcium 8.7 Micro: Microbiology 06/08/23 12:45 Blood Culture (Wb) - Chest Blood Culture - Preliminary No growth in 48 hours. 06/08/23 13:34 Blood Culture (Wb) - Chest Blood Culture - Preliminary No growth in 48 hours. 06/08/23 10:17 Gastric Fluid/Contents Gastric Occult Blood - Final Rhythm Strip Rhythm Strip: Sinus Rhythm Rate: 72 Ectopy: None Physical Exam Narrative Seen and examined. No acute issues including hematemesis or melena. Hemoptysis has also gotten better. No fever. Slight hemoglobin drop from 8.4-7.7. No abdominal pain. Physical exam General: Alert, Oriented x3, Cooperative HEENT: Atraumatic, PERRLA, EOMI, Normocephalic Oral: Oral mucosa dry. No Gingival or Mucosal Lesions/ Ulcerations. Neck: Supple, No JVD, Negative Carotid Bruits Chest wall/Lungs: Air entry diminished in bilateral lung bases. No crepitation/rhonchi Cardiovascular: Regular rate, Regular Rhythm, Normal S1, Normal S2, No M/G/R Abdomen: Bowel Sounds Present, Soft, Non Tender, Non-Distended : No dysuria. No renal angle tenderness. No suprapubic tenderness. Extremities: No edema, Capillary Refill Less than 3 Seconds Skin: No rashes, No breakdown Musculoskeletal: No Tenderness to Palpation of Joints or Extremities. Status post right TMA in 2016 Neurological: Cranial nerves II-XII grossly intact, DTR 2+/4. No acute focal neurological deficit. Psych/Mental Status: Normal Affect, Appropriate. Assessment & Plan Assessment/Plan (1) Esophageal bleeding: (2) Anemia: PLAN: Plan This is 72-year-old gentleman with history of esophageal cancer is being admitted for hematemesis/hemoptysis from esophageal cancer. 1. Esophageal cancer with bleeding/upper GI bleed and dysphagia with possible metastasis to lung/pulmonary nodule: Patient is being admitted temporarily in transit to [facility]. They do not have bed. IV PPI every 12 hourly ordered. Patient has PEG tube for feeding. Patient on about 240 mL 5 times a day tube feed, Jevity 1.2. As a precaution for aspiration, decreased to 3 times daily. Discussed with the butcher apprentice. IV fluid ordered for hydration as patient is mildly dehydrated. During previous admission patient was found to have pulmonary nodule in March 2023 suspected metastatic lung disease from esophageal cancer. 06/09: Surprisingly, hemoglobin improved from 7.8-8.4 without giving PRBC transfusion. Still pending transfer to [facility]. 06/10: Slight drop in the hemoglobin to 7.7 from 8.4. Still waiting for bed to open. I called [facility] to get an update and was told that probably might go in the evening or tonight although cannot be guaranteed. Clinical information exchange. 2. Acute blood loss anemia with chronic severe normocytic anemia most likely from esophageal cancer: Patient baseline hemoglobin runs around 9 g. Was admitted with 8.4 dropped to 7.8 g. Monitor H&H every 6 hourly. If hemoglobin drops less than 7 g will need PRBC transfusion. Hemodynamically heart rate and blood pressure are controlled 3. Chronic congestive heart failure with preserved ejection fraction ? Hold diuretic therapy as patient is mildly dehydrated. 2D echo from 11/27/2022 demonstrated EF of 70% with mild concentric left ventricular hypertrophy. 4. History of renal transplant ? Secondary to diabetic nephropathy. continue patient antirejection m edications, tacrolimus 5. Paroxysmal atrial fibrillation on amiodarone and apixaban: Hold apixaban as patient severe anemia. Continue amiodarone for rate control strategy. 6. Diabetes mellitus type 2 ? Patient is on insulin pump 06/09: Glucose is reasonably controlled around 120s. 7. Hypertension - Blood pressure controlled, BP 123/55. Hold antihypertensive medications. 06/09: Blood pressure is controlled. 8. Dyslipidemia -Patient is on statin therapy, continued at home dose 9. Anemia - Secondary to chronic disorder monitoring H&H and transfuse if patient becomes symptomatic or hemoglobin falls below 7 10. Physical deconditioning - Requested for PT OT eval and social security assessor to assist with discharge planning DVT prophylaxis, high risk with history of esophageal cancer and paroxysmal A- fib: Pharmacological prophylaxis contraindicated. Bilateral SCDs Living will/advanced directive/end of life care: Patient does have living will or advanced directive. His is power of employment attorney for health. After discussion of benefits/risks procedures involved with full code, DNR CC arrest and DNR CC, the patient opted for DNR CC arrest with no intubation Patient doesn't want artificial life support including intubation, tube feed, ventilator and/chest compression, central venous catheter, vasopressor and DC shock if needed Total time spent in [id number] encounter in discussion of advanced directive 17 minutes. Charges/Coding Visit Charges Inpatient E&M: 42667 Subs Hosp L2
--- NOTE | 2023-06-11 21:00 | NURSING ---
pts blood glucose 137 via continous glucose device, family bolused 7.3units of insulin
[2023-06-11] MEDS: Atorvastatin Calcium 40 MG Tablet GT (21:02)
[2023-06-11] MEDS: Tacrolimus 0.5 MG Capsule PO (21:03)
[2023-06-12] VITALS (8 sets, daily range): BP systolic 106–140; BP diastolic 53–64; PULSE 78–84; RESP 16–18; TEMP 36.6–37.4; O2SAT 88–99
[2023-06-12 07:58] LABS: Absolute Lymphocyte Count 0.49 X10^3/uL (0.83-4.51); Absolute Neutrophil Count 6.6 X10^3/uL (2.0-7.7); Basophil# 0.02 X10^3/uL; Basophil% 0.3 % (0-1); Eosinophil# 0.02 X10^3/uL; Eosinophils% 0.3 % (0-5); Hematocrit 26.4 % (40-54); Hemoglobin 7.9 g/dL (13.0-16.5); Lymphocyte # 0.49 X10^3/ul (0.83-4.51); Lymphocyte % 6.2 % (19-41); Mean Corp Hgb Conc 29.9 g/dL (32-36); Mean Corpuscular Hgb 25.2 pg (27.0-32.0); Mean Corpuscular Volume 84.1 fL (80-94); Mean Platelet Vol. 10.3 fl (6.2-12.0); Monocyte# 0.66 X10^3/uL; Monocyte% 8.3 % (0-10); NRBC Flagged by Analyzer 0 % (0-5); Neutrophil # 6.64 X10^3/uL (2.7-7.7); Neutrophil % 83.8 % (47-70); POSITIVE DIFFERENTIAL YES; POSITIVE MORPHOLOGY YES; Platelet Count 139 K/mm3 (150-450); RBC Distribution Width CV 20.3 % (11.6-14.6); RBC Distribution Width SD 59.7 fl (35.1-43.9); Red Blood Count 3.14 M/mm3 (4.6-6.2); White Blood Count 7.9 K/mm3 (4.4-11.0)
[2023-06-12 08:38] LABS: Differential Indicated SCAN CRITERIA MET
--- NOTE | 2023-06-12 08:56 | NURSING ---
I spoke with [facility] transfer line they stated pt is on the wait list however they do not have a bed at this time.
[2023-06-12 09:14] LABS: Anion Gap 3 (5-15); BUN 21 mg/dL (7-18); BUN/Creat Ratio 25.1 RATIO (10-20); Calcium,Total 8.8 mg/dL (8.5-10.1); Chloride 103 mmol/L (98-107); Creatinine, Serum 0.84 mg/dL (0.70-1.30); EST Glomerular Filtration Rate 96 mL/min (>60); Est Glom Filt Rate - Afr Amer 116 mL/min (>60); Estimated Creatinine Clearance 84.49 ml/min; Glucose 112 mg/dL (74-106); Potassium 4.4 mmol/L (3.5-5.1); Sodium Level 134 mmol/L (136-145)
[2023-06-12] MEDS: Metoprolol Tartrate 25 MG Tablet GT ×2 (09:25→21:13)
[2023-06-12] MEDS: Amiodarone 200 MG Tablet GT (09:25)
[2023-06-12] MEDS: Polyethylene Glycol 3350 17 GM PACKET GT (09:26)
[2023-06-12] MEDS: Morphine 4 MG/ML Syringe IV ×2 (09:26→20:49)
[2023-06-12 09:29] LABS: Differential Comment SCANNED
[2023-06-12 09:30] LABS: Anisocytosis 2+; Macrocytosis 1+; Microcytosis 1+
[2023-06-12] MEDS: Pantoprazole Sodium 40 MG in 0.9% Normal Saline (100mL MB+) 100 ML 330 MG IV ×2 (09:38→20:50)
[2023-06-12] MEDS: Jevity 1.5. 1,000 ML Bottle 240 ML GT ×3 (09:39→20:51)
[2023-06-12] MEDS: Ondansetron 4 MG/2 ML Vial IV (14:49)
[2023-06-12] MEDS: Acetaminophen 325 MG Tablet 650 MG PO (14:49)
--- NOTE | 2023-06-12 14:57 | PN.HOSP_ITS ---
Reason for Visit Reason for Visit: Diagnoses Anemia, unspecified (06/09/23) Other specified disease of esophagus (06/09/23) Objective Data Objective Data Vital Signs: Vital Signs Temp Pulse Resp BP Pulse Ox O2 Del Method O2 Flow Rate 99.1 F 83 16 138/64 H 93 Room Air 2 06/12/23 09:05 06/12/23 09:25 06/12/23 09:05 06/12/23 09:25 06/12/23 09:05 06/12/23 09:30 06/12/23 05:20 Oxygen Flow Rate (L/min) 2 Oxygen Delivery Method Room Air Weight: 186 lb 1.122 oz Body Mass Index (BMI) 26.3 Intake & Output: Intake and Output for Last 24 Hours 06/10/23 06/11/23 06/12/23 23:59 23:59 23:59 Intake Total 2900 / 2900 270 / 270 370 / 370 Output Total 680 / 680 Balance 2900 / 2900 -410 / -410 370 / 370 Lab / Micro Data 06/12/23 07:20 06/12/23 07:20 Labs: Laboratory Results - last 24 hr 06/12/23 07:20: WBC 7.9, RBC 3.14 L, Hgb 7.9 L, Hct 26.4 L, MCV 84.1, MCH 25.2 L , MCHC 29.9 L, RDW Std Deviation 59.7 H, RDW Coeff of Ayaka 20.3 H, Plt Count 139 L, MPV 10.3, Immature Gran % (Auto) 1.100 H, Neut % (Auto) 83.8 H, Lymph % (Auto) 6.2 L, [place] % (Auto) 8.3, Eos % (Auto) 0.3, Baso % (Auto) 0.3, Absolute Neuts (auto) 6.6, Absolute Lymphs (auto) 0.49 L, Nucleated RBC % 0, Differential Comment SCANNED, Anisocytosis 2+, Microcytosis 1+, Macrocytosis 1+, Sodium 134 L, Potassium 4.4, Chloride 103, Carbon Dioxide 28.0, Anion Gap 3 L, BUN 21 H, Creatinine 0.84, Estim Creat Clear Calc 84.49, Est GFR (MDRD) Af Amer 116, Est GFR (MDRD) Non-Af 96, BUN/Creatinine Ratio 25.1 H, Glucose 112 H, Calcium 8.8 Micro: Microbiology 06/08/23 12:45 Blood Culture (Wb) - Chest Blood Culture - Preliminary No growth in 48 hours. 06/08/23 13:34 Blood Culture (Wb) - Chest Blood Culture - Preliminary No growth in 48 hours. 06/08/23 10:17 Gastric Fluid/Contents Gastric Occult Blood - Final Rhythm Strip Rhythm Strip: Sinus Rhythm Rate: 72 Ectopy: None Physical Exam Narrative Seen and examined. Patient complain of pain in the right thigh and calf area but not on joints. No acute GI bleed. Hemoptysis has also gotten better. No fever. Slight hemoglobin drop from 8.4-7.7. No abdominal pain. Physical exam General: Alert, Oriented x3, Cooperative HEENT: Atraumatic, PERRLA, EOMI, Normocephalic Oral: Oral mucosa dry. No Gingival or Mucosal Lesions/ Ulcerations. Neck: Supple, No JVD, Negative Carotid Bruits Chest wall/Lungs: Air entry diminished in bilateral lung bases. No crepitation/rhonchi Cardiovascular: Regular rate, Regular Rhythm, Normal S1, Normal S2, No M/G/R Abdomen: Bowel Sounds Present, Soft, Non Tender, Non-Distended : No dysuria. No renal angle tenderness. No suprapubic tenderness. Extremities: No edema, Capillary Refill Less than 3 Seconds Skin: No rashes, No breakdown Musculoskeletal: Mild tenderness over right thigh and calf muscles. No swelling. No Tenderness to Palpation of Joints. Status post right TMA in 2016 Neurological: Cranial nerves II-XII grossly intact, DTR 2+/4. No acute focal neurological deficit. Psych/Mental Status: Flat affect Assessment & Plan Assessment/Plan (1) Esophageal bleeding: (2) Anemia: PLAN: Plan This is 72-year-old gentleman with history of esophageal cancer is being admitted for hematemesis/hemoptysis from esophageal cancer. 1. Esophageal cancer with bleeding/upper GI bleed and dysphagia with possible metastasis to lung/pulmonary nodule: Patient is being admitted temporarily in [facility]. They do not have bed. IV PPI every 12 hourly ordered. Patient has PEG tube for feeding. Patient on about 240 mL 5 times a day tube feed, Jevity 1.2. As a precaution for aspiration, decreased to 3 times daily. Discussed with the machine maintenance. IV fluid ordered for hydration as patient is mildly dehydrated. During previous admission patient was found to have pulmonary nodule in March 2023 suspected metastatic lung disease from esophageal cancer. 06/09: Surprisingly, hemoglobin improved from 7.8-8.4 without giving PRBC transfusion. Still pending transfer to [facility]. 06/10: Slight drop in the hemoglobin to 7.7 from 8.4. Still waiting for bed to open. I called [facility] to get an update and was told that probably might go in the evening or tonight although cannot be guaranteed. Clinical information exchang e. 06/11: H&H 7.9/26%. Platelet count 139,000. 2. Acute blood loss anemia with chronic severe normocytic anemia most likely from esophageal cancer: Patient baseline hemoglobin runs around 9 g. Was admitted with 8.4 dropped to 7.8 g. Monitor H&H every 6 hourly. If hemoglobin drops less than 7 g will need PRBC transfusion. Hemodynamically heart rate and blood pressure are controlled 3. Chronic congestive heart failure with preserved ejection fraction ? Hold diuretic therapy as patient is mildly dehydrated. 2D echo from 11/27/2022 demonstrated EF of 70% with mild concentric left ventricular hypertrophy. 4. History of renal transplant ? Secondary to diabetic nephropathy. continue patient antirejection medications, tacrolimus 5. Paroxysmal atrial fibrillation on amiodarone and apixaban: Hold apixaban as patient severe anemia. Continue amiodarone for rate control strategy. 6. Diabetes mellitus type 2 ? Patient is on insulin pump 06/09: Glucose is reasonably controlled around 120s. 7. Hypertension - Blood pressure controlled, BP 123/55. Hold antihypertensive medications. 06/09: Blood pressure is controlled. 8. Dyslipidemia -Patient is on statin therapy, continued at home dose 9. Anemia - Secondary to chronic disorder monitoring H&H and transfuse if patient becomes symptomatic or hemoglobin falls below 7 10. Physical deconditioning - Requested for PT OT eval and secondary social studies teacher to assist with discharge planning DVT prophylaxis, high risk with history of esophageal cancer and paroxysmal A- fib: Pharmacological prophylaxis contraindicated. Bilateral SCDs Living will/advanced directive/end of life care: Patient does have living will or advanced directive. His is power of patent prosecution attorney for health. After discussion of benefits/risks procedures involved with full code, DNR CC arrest and DNR CC, the patient opted for DNR CC arrest with no intubation Patient doesn't want artificial life support including intubation, tube feed, ventilator and/chest compression, central venous catheter, vasopressor and DC shock if needed Charges/Coding Visit Charges Inpatient E&M: 73185 Subs Hosp L2
[2023-06-12] MEDS: 0.9 % NaCl (Sterile) Posiflush 10 mL IV (20:50)
[2023-06-12] MEDS: Atorvastatin Calcium 40 MG Tablet GT (20:52)
[2023-06-12] MEDS: Tacrolimus 0.5 MG Capsule PO (21:14)
[2023-06-13 03:20] VITALS: BP 137/69; PULSE 70; RESP 16; TEMP 37; O2SAT 98
[2023-06-13 09:53] VITALS: BP 112/95; PULSE 80; RESP 18; TEMP 37.9; O2SAT 94
[2023-06-13 10:07] VITALS: PULSE 89
[2023-06-13] MEDS: Tacrolimus Anhydrous 1 MG Capsule PO (10:07)
[2023-06-13] MEDS: Amiodarone 200 MG Tablet GT (10:07)
[2023-06-13] MEDS: Metoprolol Tartrate 25 MG Tablet GT ×2 (10:07→22:03)
[2023-06-13] MEDS: Acetaminophen 325 MG Tablet 650 MG PO (10:07)
[2023-06-13] MEDS: Jevity 1.5. 1,000 ML Bottle 240 ML GT ×3 (10:07→22:04)
[2023-06-13] MEDS: 0.9% Saline Lock 10 ML Syringe IV ×3 (10:08→23:20)
[2023-06-13] MEDS: Pantoprazole Sodium 40 MG in 0.9% Normal Saline (100mL MB+) 100 ML 330 MG IV ×2 (10:08→22:42)
[2023-06-13] MEDS: Polyethylene Glycol 3350 17 GM PACKET GT (10:09)
--- NOTE | 2023-06-13 11:59 | PN.HOSP_ITS ---
Reason for Visit Reason for Visit: Diagnoses Anemia, unspecified (06/09/23) Other specified disease of esophagus (06/09/23) Objective Data Objective Data Vital Signs: Vital Signs Temp Pulse Resp BP Pulse Ox O2 Del Method O2 Flow Rate 100.3 F H 89 18 112/95 H 94 Nasal Cannula 2 06/13/23 09:53 06/13/23 10:07 06/13/23 09:53 06/13/23 09:53 06/13/23 09:53 06/13/23 10:00 06/13/23 10:00 Oxygen Flow Rate (L/min) 2 Oxygen Delivery Method Nasal Cannula Weight: 186 lb 1.122 oz Body Mass Index (BMI) 26.3 Intake & Output: Intake and Output for Last 24 Hours 06/11/23 06/12/23 06/13/23 23:59 23:59 23:59 Intake Total 270 / 270 1210 / 1210 110 / 110 Output Total 680 / 680 Balance -410 / -410 1210 / 1210 110 / 110 Lab / Micro Data 06/12/23 07:20 06/12/23 07:20 Micro: Microbiology 06/08/23 12:45 Blood Culture (Wb) - Chest Blood Culture - Preliminary No growth in 48 hours. 06/08/23 13:34 Blood Culture (Wb) - Chest Blood Culture - Preliminary No growth in 48 hours. 06/08/23 10:17 Gastric Fluid/Contents Gastric Occult Blood - Final Rhythm Strip Rhythm Strip: Sinus Rhythm Rate: 72 Ectopy: None Physical Exam Narrative Seen and examined. Complain of constipation for last 2 days. Thigh and calf pain have improved. No acute GI bleed. Hemoptysis has also gotten better. No fever. No abdominal pain. Physical exam General: Alert, Oriented x3, Cooperative HEENT: Atraumatic, PERRLA, EOMI, Normocephalic Oral: Oral mucosa dry. No Gingival or Mucosal Lesions/ Ulcerations. Neck: Supple, No JVD, Negative Carotid Bruits Chest wall/Lungs: Air entry diminished in bilateral lung bases. No crepit ation/rhonchi Cardiovascular: Regular rate, Regular Rhythm, Normal S1, Normal S2, No M/G/R Abdomen: Bowel Sounds Present, Soft, Non Tender, Non-Distended : No dysuria. No renal angle tenderness. No suprapubic tenderness. Extremities: No edema, Capillary Refill Less than 3 Seconds Skin: No rashes, No breakdown Musculoskeletal: Mild tenderness over right thigh and calf muscles. No swelling. No Tenderness to Palpation of Joints. Status post right TMA in 2016 Neurological: Cranial nerves II-XII grossly intact, DTR 2+/4. No acute focal neurological deficit. Psych/Mental Status: Flat affect Assessment & Plan Assessment/Plan (1) Esophageal bleeding: (2) Anemia: PLAN: Plan This is 72-year-old gentleman with history of esophageal cancer is being admitted for hematemesis/hemoptysis from esophageal cancer. 1. Esophageal cancer with bleeding/upper GI bleed and dysphagia with possible metastasis to lung/pulmonary nodule: Patient is being admitted temporarily in transit to [facility]. They do not have bed. IV PPI every 12 hourly ordered. Patient has PEG tube for feeding. Patient on about 240 mL 5 times a day tube feed, Jevity 1.2. As a precaution for aspiration, decreased to 3 times daily. Discussed with the vanstone machine operator. IV fluid ordered for hydration as patient is mildly dehydrated. During previous admission patient was found to have pulmonary nodule in March 2023 suspected metastatic lung disease from esophageal cancer. 06/09: Surprisingly, hemoglobin improved from 7.8-8.4 without giving PRBC transfusion. Still pending transfer to [facility]. 06/10: Slight drop in the hemoglobin to 7.7 from 8.4. Still waiting for bed to open. I called [facility] to get an update and was told that probably might go in the evening or tonight although cannot be guaranteed. Clinical information exchange. 06/11: H&H 7.9/26%. Platelet count 139,000. 06/12: H&H did not show drop.Patient stated he did not had bowel movement after Thursday. Sennas cannot be given through PEG tube therefore lactulose and Dulcolax suppository ordered. [facility]U psychiatry nurses and I have been calling to [facility] transfer for last 3 days but he still same answer that they do have bed. 2. Acute blood loss anemia with chronic severe normocytic anemia most likely from esophageal cancer: Patient baseline hemoglobin runs around 9 g. Was admitted with 8.4 dropped to 7.8 g. Monitor H&H every 6 hourly. If hemoglobin drops less than 7 g will need PRBC transfusion. Hemodynamically heart rate and blood pressure are controlled 06/12 as mentioned above. 3. Chronic congestive heart failure with preserved ejection fraction ? Hold diuretic therapy as patient is mildly dehydrated. 2D echo from 11/27/2022 demonstrated EF of 70% with mild concentric left ventricular hypertrophy. 4. History of renal transplant ? Secondary to diabetic nephropathy. continue patient antirejection medications, tacrolimus 5. Paroxysmal atrial fibrillation on amiodarone and apixaban: Hold apixaban as patient severe anemia. Continue amiodarone for rate control strategy. 6. Diabetes mellitus type 2 ? Patient is on insulin pump 06/09: Glucose is reasonably controlled around 120s. 7. Hypertension - Blood pressure controlled, BP 123/55. Hold antihypertensive medications. 06/09: Blood pressure is controlled. 8. Dyslipidemia -Patient is on statin therapy, continued at home dose 9. Anemia - Secondary to chronic disorder monitoring H&H and transfuse if patient becomes symptomatic or hemoglobin falls below 7 10. Physical deconditioning - Requested for PT OT eval and social service technician to assist with discharge planning DVT prophylaxis, high risk with history of esophageal cancer and paroxysmal A- fib: Pharmacological prophylaxis contraindicated. Bilateral SCDs Living will/advanced directive/end of life care: Patient does have living will or advanced directive. His is power of deputy prosecuting attorney for health. After discussion of benefits/risks procedures involved with full code, DNR CC arrest and DNR CC, the patient opted for DNR CC arrest with no intubation Patient doesn't want artificial life support including intubation, tube feed, ventilator and/chest compression, central venous catheter, vasopressor and DC shock if needed Charges/Coding Visit Charges Inpatient E&M: 11906 Subs Hosp L2
[2023-06-13 15:22] VITALS: BP 128/65; PULSE 72; RESP 16; TEMP 36.7; O2SAT 94
[2023-06-13] MEDS: Lactulose 20 GM/30 ML UDC 10 GM PO (15:27)
[2023-06-13 21:58] VITALS: BP 115/84; PULSE 81; RESP 16; TEMP 37; O2SAT 96
[2023-06-13 22:03] VITALS: PULSE 81
[2023-06-13] MEDS: Tacrolimus 0.5 MG Capsule PO (22:03)
[2023-06-13] MEDS: Atorvastatin Calcium 40 MG Tablet GT (22:04)
[2023-06-13] MEDS: Morphine 4 MG/ML Syringe IV (22:36)
[2023-06-14] VITALS (9 sets, daily range): BP systolic 113–142; BP diastolic 55–69; PULSE 66–78; RESP 16–17; TEMP 36.7–37.2; O2SAT 92–100
[2023-06-14] MEDS: Morphine 4 MG/ML Syringe IV ×3 (02:56→21:38)
[2023-06-14 06:48] LABS: Absolute Lymphocyte Count 0.56 X10^3/uL (0.83-4.51); Absolute Neutrophil Count 5.5 X10^3/uL (2.0-7.7); Basophil# 0.03 X10^3/uL; Basophil% 0.4 % (0-1); Eosinophil# 0.04 X10^3/uL; Eosinophils% 0.6 % (0-5); Hematocrit 26.4 % (40-54); Hemoglobin 7.8 g/dL (13.0-16.5); Lymphocyte # 0.56 X10^3/ul (0.83-4.51); Lymphocyte % 8.1 % (19-41); Mean Corp Hgb Conc 29.5 g/dL (32-36); Mean Corpuscular Hgb 25.5 pg (27.0-32.0); Mean Corpuscular Volume 86.3 fL (80-94); Mean Platelet Vol. 11.1 fl (6.2-12.0); Monocyte# 0.69 X10^3/uL; NRBC Flagged by Analyzer 0 % (0-5); Neutrophil # 5.51 X10^3/uL (2.7-7.7); Neutrophil % 79.7 % (47-70); POSITIVE DIFFERENTIAL YES; POSITIVE MORPHOLOGY YES; Platelet Count 141 K/mm3 (150-450); RBC Distribution Width CV 20.1 % (11.6-14.6); RBC Distribution Width SD 60.2 fl (35.1-43.9); Red Blood Count 3.06 M/mm3 (4.6-6.2); White Blood Count 6.9 K/mm3 (4.4-11.0)
[2023-06-14 06:51] LABS: Differential Indicated SCAN CRITERIA MET
[2023-06-14 07:12] LABS: Anion Gap 3 (5-15); BUN 19 mg/dL (7-18); Chloride 103 mmol/L (98-107); Creatinine, Serum 0.83 mg/dL (0.70-1.30); EST Glomerular Filtration Rate 98 mL/min (>60); Est Glom Filt Rate - Afr Amer 118 mL/min (>60); Estimated Creatinine Clearance 85.51 ml/min; Glucose 131 mg/dL (74-106); Potassium 4.9 mmol/L (3.5-5.1); Sodium Level 139 mmol/L (136-145)
[2023-06-14 08:02] LABS: Anisocytosis 2+; Differential Comment SCANNED; Macrocytosis 1+; Microcytosis 1+
[2023-06-14] MEDS: Amiodarone 200 MG Tablet GT (09:20)
[2023-06-14] MEDS: Metoprolol Tartrate 25 MG Tablet GT ×2 (09:20→21:15)
[2023-06-14] MEDS: Tacrolimus Anhydrous 1 MG Capsule PO (09:21)
[2023-06-14] MEDS: Jevity 1.5. 1,000 ML Bottle 240 ML GT ×3 (09:21→21:16)
[2023-06-14] MEDS: Acetaminophen 325 MG Tablet 650 MG PO ×2 (09:25→18:55)
[2023-06-14] MEDS: 0.9% Saline Lock 10 ML Syringe IV ×5 (09:26→17:19)
[2023-06-14] MEDS: Pantoprazole Sodium 40 MG in 0.9% Normal Saline (100mL MB+) 100 ML 330 MG IV ×2 (09:27→21:19)
--- NOTE | 2023-06-14 14:26 | PCM.PN.HOSP ---
Reason for Visit Reason for Visit: Diagnoses Anemia, unspecified (06/09/23) Other specified disease of esophagus (06/09/23) Objective Data Objective Data Vital Signs: Vital Signs Temp Pulse Resp BP Pulse Ox O2 Del Method O2 Flow Rate 98.1 F 71 17 118/55 L 97 Nasal Cannula 2 06/14/23 09:14 06/14/23 09:20 06/14/23 09:14 06/14/23 09:14 06/14/23 09:14 06/14/23 09:14 06/14/23 09:14 Oxygen Flow Rate (L/min) 2 Oxygen Delivery Method Nasal Cannula Weight: 186 lb 1.122 oz Body Mass Index (BMI) 26.3 Intake & Output: Intake and Output for Last 24 Hours 06/12/23 06/13/23 06/14/23 23:59 23:59 23:59 Intake Total 1210 / 1210 880 / 880 450 / 450 Balance 1210 / 1210 880 / 880 450 / 450 Lab / Micro Data 06/14/23 05:32 06/14/23 05:32 Labs: Laboratory Results - last 24 hr 06/14/23 05:32: WBC 6.9, RBC 3.06 L, Hgb 7.8 L, Hct 26.4 L, MCV 86.3, MCH 25.5 L, MCHC 29.5 L, RDW Std Deviation 60.2 H, RDW Coeff of Ayaka 20.1 H, Plt Count 141 L, MPV 11.1, Immature Gran % (Auto) 1.200 H, Neut % (Auto) 79.7 H, Lymph % (Auto) 8.1 L, [place] % (Auto) 10.0, Eos % (Auto) 0.6, Baso % (Auto) 0.4, Absolute Neuts (auto) 5.5, Absolute Lymphs (auto) 0.56 L, Nucleated RBC % 0, Differential Comment SCANNED, Anisocytosis 2+, Microcytosis 1+, Macrocytosis 1+, Sodium 139, Potassium 4.9, Chloride 103, Carbon Dioxide 33.0 H, Anion Gap 3 L, BUN 19 H, Creatinine 0.83, Estim Creat Clear Calc 85.51, Est GFR (MDRD) Af Amer 118, Est GFR (MDRD) Non-Af 98, BUN/Creatinine Ratio 23.0 H, Glucose 131 H, Calcium 9.0 Micro: Microbiology 06/08/23 13:34 Blood Culture (Wb) - Chest Blood Culture - Final No growth in 5 days. 06/08/23 12:45 Blood Culture (Wb) - Chest Blood Culture - Final No growth in 5 days. 06/08/23 10:17 Gastric Fluid/Contents Gastric Occult Blood - Final Rhythm Strip Rhythm Strip: Sinus Rhythm Rate: 72 Ectopy: None Physical Exam Narrative Seen and examined. Patient moving bowel. Discussed with the and family visiting the patient. Thigh and calf pain have improved. No acute GI bleed. Hemoptysis has also gotten better. No fever. No abdominal pain. Physical exam General: Alert, Oriented x3, Cooperative HEENT: Atraumatic, PERRLA, EOMI, Normocephalic Oral: Oral mucosa dry. No Gingival or Mucosal Lesions/ Ulcerations. Neck: Supple, No JVD, Negative Carotid Bruits Chest wall/Lungs: Air entry diminished in bilateral lung bases. No crepitation/rhonchi Cardiovascular: Regular rate, Regular Rhythm, Normal S1, Normal S2, No M/G/R Abdomen: Bowel Sounds Present, Soft, Non Tender, Non-Distended. PEG tube present and functioning. : No dysuria. No renal angle tenderness. No suprapubic tenderness. Extremities: No edema, Capillary Refill Less than 3 Seconds Skin: No rashes, No breakdown Musculoskeletal: Mild tenderness over right thigh and calf muscles. No swelling. No Tenderness to Palpation of Joints. Status post right TMA in 2016 Neurological: Cranial nerves II-XII grossly intact, DTR 2+/4. No acute focal neurological deficit. Psych/Mental Status: Flat affect Assessment & Plan Assessment/Plan (1) Esophageal bleeding: (2) Anemia: PLAN: Plan This is 72-year-old gentleman with history of esophageal cancer is being admitted for hematemesis/hemoptysis from esophageal cancer. 1. Esophageal cancer with bleeding/upper GI bleed and dysphagia with possible metastasis to lung/pulmonary nodule: Patient is being admitted temporarily in transit to [facility]. They do not have bed. IV PPI every 12 hourly ordered. Patient has PEG tube for feeding. Patient on about 240 mL 5 times a day tube feed, Jevity 1.2. As a precaution for aspiration, decreased to 3 times daily. Discussed with the high value associate. IV fluid ordered for hydration as patient is mildly dehydrated. During previous admission patient was found to have pulmonary nodule in March 2023 suspected metastatic lung disease from esophageal cancer. 06/09: Surprisingly, hemoglobin improved from 7.8-8.4 without giving PRBC transfusion. Still pending transfer to [facility]. 06/10: Slight drop in the hemoglobin to 7.7 from 8.4. Still waiting for bed to open. I called [facility] to get an update and was told that probably might go in the evening or tonight although cannot be guaranteed. Clinical information exchange. 06/11: H&H 7.9/26%. Platelet count 139,000. 06/12: H&H did not show drop.Patient stated he did not had bowel movement after Thursday. Sennas cannot be given through PEG tube therefore lactulose and Dulcolax suppository ordered. PCU psychiatry nurses and I have been calling to [facility] transfer for last 3 days but he still same answer that they do have bed. 06/13: H&H similar 7.8. No acute drop in H&H. Patient also has mild hoarseness of voice since admission with suspicion of possible spread of cancer as he also has lung nodule. Still waiting for the bed for transfer to [facility] for comprehensive evaluation and management. 2. Acute blood loss anemia with chronic severe normocytic anemia most likely from esophageal cancer: Patient baseline hemoglobin runs around 9 g. Was admitted with 8.4 dropped to 7.8 g. Monitor H&H every 6 hourly. If hemoglobin drops less than 7 g will need PRBC transfusion. Hemodynamically heart rate and blood pressure are controlled 06/12 as mentioned above. 06/13: IV iron ordered. 3. Chronic congestive heart failure with preserved ejection fraction ? Hold diuretic therapy as patient is mildly dehydrated. 2D echo from 11/27/2022 demonstrated EF of 70% with mild concentric left ventricular hypertrophy. 4. History of renal transplant ? Secondary to diabetic nephropathy. continue patient antirejection medications, tacrolimus 5. Paroxysmal atrial fibrillation on amiodarone and apixaban: Hold apixaban as patient severe anemia. Continue amiodarone for rate control strategy. 6. Diabetes mellitus type 2 ? Patient is on insulin pump 06/09: Glucose is reasonably controlled around 120s. 7. Hypertension - Blood pressure controlled, BP 123/55. Hold antihypertensive medications. 06/09: Blood pressure is controlled. 8. Dyslipidemia -Patient is on statin therapy, continued at home dose 9. Anemia - Secondary to chronic disorder monitoring H&H and transfuse if patient becomes symptomatic or hemoglobin falls below 7 10. Physical deconditioning - Requested for PT OT eval and child protective services social worker to assist with discharge planning DVT prophylaxis, high risk with history of esophageal cancer and paroxysmal A-fib: Pharmacological prophylaxis contraindicated. Bilateral SCDs Living will/advanced directive/end of life care: Patient does have living will or advanced directive. His is power of sports attorney for health. After discussion of benefits/risks procedures involved with full code, DNR CC arrest and DNR CC, the patient opted for DNR CC arrest with no intubation Patient doesn't want artificial life support including intubation, tube feed, ventilator and/chest compression, central venous catheter, vasopressor and DC shock if needed Charges/Coding Visit Charges Inpatient E&M: 34283 Subs Hosp L2
[2023-06-14] MEDS: Sodium Ferric Gluconat/Sucrose 250 MG in 0.9% Normal Saline (250mL Bag) 250 ML 135 MG IV (15:02)
--- NOTE | 2023-06-14 18:10 | PCM.DC.SUM ---
Providers Date of Admission: 06/09/23 Date of Discharge: 06/14/23 Primary Care Physician: Dr. Mikayla Lopez MD Reason For Visit: GI BLEED Diagnosis Discharge Diagnosis (1) Esophageal bleeding: Status: Acute Code(s): K22.89 - Other specified disease of esophagus (2) Anemia: Status: Acute Code(s): D64.9 - Anemia, unspecified Plan This is 72-year-old gentleman with history of esophageal cancer is being admitted for hematemesis/hemoptysis from esophageal cancer. 1. Esophageal cancer with bleeding/upper GI bleed and dysphagia with possible metastasis to lung/pulmonary nodule: Patient is being admitted temporarily in transit to [facility]. They do not have bed. IV PPI every 12 hourly ordered. Patient has PEG tube for feeding. Patient on about 240 mL 5 times a day tube feed, Jevity 1.2. As a precaution for aspiration, decreased to 3 times daily. Discussed with the dry cell and battery assembler. IV fluid ordered for hydration as patient is mildly dehydrated. During previous admission patient was found to have pulmonary nodule in March 2023 suspected metastatic lung disease from esophageal cancer. 06/09: Surprisingly, hemoglobin improved from 7.8-8.4 without giving PRBC transfusion. Still pending transfer to [facility]. 06/10: Slight drop in the hemoglobin to 7.7 from 8.4. Still waiting for bed to open. I called [facility] to get an update and was told that probably might go in the evening or tonight although cannot be guaranteed. Clinical information exchange. 06/11: H&H 7.9/26%. Platelet count 139,000. 06/12: H&H did not show drop.Patient stated he did not had bowel movement after Thursday. Sennas cannot be given through PEG tube therefore lactulose and Dulcolax suppository ordered. PCU psychiatry nurses and I have been calling to [facility] transfer for last 3 days but he still same answer that they do have bed. 06/13: H&H similar 7.8. No acute drop in H&H. Patient also has mild hoarseness of voice since admission with suspicion of possible spread of cancer as he also has lung nodule. Still waiting for the bed for transfer to [facility] for comprehensive evaluation and management. In the evening around 4 PM that patient is going to be transferred to [facility]. Patient was transferred in hemodynamically stable condition. 2. Acute blood loss anemia with chronic severe normocytic anemia most likely from esophageal cancer: Patient baseline hemoglobin runs around 9 g. Was admitted with 8.4 dropped to 7.8 g. Monitor H&H every 6 hourly. If hemoglobin drops less than 7 g will need PRBC transfusion. Hemodynamically heart rate and blood pressure are controlled 06/12 as mentioned above. 06/13: IV iron ordered. 3. Chronic congestive heart failure with preserved ejection fraction ? Hold diuretic therapy as patient is mildly dehydrated. 2D echo from 11/27/2022 demonstrated EF of 70% with mild concentric left ventricular hypertrophy. 4. History of renal transplant ? Secondary to diabetic nephropathy. continue patient antirejection medications, tacrolimus 5. Paroxysmal atrial fibrillation on amiodarone and apixaban: Hold apixaban as patient severe anemia. Continue amiodarone for rate control strategy. 6. Diabetes mellitus type 2 ? Patient is on insulin pump 06/09: Glucose is reasonably controlled around 120s. 7. Hypertension - Blood pressure controlled, BP 123/55. Hold antihypertensive medications. 06/09: Blood pressure is controlled. 8. Dyslipidemia -Patient is on statin therapy, continued at home dose 9. Anemia - Secondary to chronic disorder monitoring H&H and transfuse if patient becomes symptomatic or hemoglobin falls below 7 10. Physical deconditioning - Requested for PT OT eval and social services aide to assist with discharge planning DVT prophylaxis, high risk with history of esophageal cancer and paroxysmal A-fib: Pharmacological prophylaxis contraindicated. Bilateral SCDs Living will/advanced directive/end of life care: Patient does have living will or advanced directive. His is power of civil attorney for health. After discussion of benefits/risks procedures involved with full code, DNR CC arrest and DNR CC, the patient opted for DNR CC arrest with no intubation Patient doesn't want artificial life support including intubation, tube feed, ventilator and/chest compression, central venous catheter, vasopressor and DC shock if needed Transfer to [facility] for further management. Medications at Discharge Home Medications prednisone 2.5 mg tablet 5 mg PO DAILY steriod 05/11/15 insulin aspart U-100 100 unit/mL (3 mL) subcutaneous pen (Novolog FlexPen U-100 Insulin aspart) See Protocol subcut CONT DM 02/06/18 lactose-reduced food with fiber 0.06 gram-1.5 kcal/mL oral liquid (Jevity 1.5 Victorino) 237 ml feeding tube .COMPLEX NUTRITION 10/16/22 ondansetron 8 mg disintegrating tablet 8 mg PO Q8H PRN nausea and vomiting 30 days #30 tabs 10/17/22 nystatin 100,000 unit/mL oral suspension 5 ml PO 4X/DAY MOUTH 10/24/22 omeprazole 10 mg capsule,delayed release See Rx Instructions feeding tube DAILY reflux 10/24/22 amiodarone 200 mg tablet 200 mg feeding tube DAILY heart #30 tabs 01/21/23 apixaban 5 mg tablet (Eliquis) 5 mg feeding tube BID #60 tabs 01/21/23 rosuvastatin 20 mg tablet (Crestor) 20 mg feeding tube QHS cholesterol #1 TAB 01/21/23 sulfamethoxazole-trimethoprim 1 tab G-tube DAILY antibiotic #1 TAB 01/21/23 olanzapine 5 mg tablet 5 mg PO BID after chemo 02/14/23 tacrolimus 0.5 mg capsule, immediate-release (Prograf) 0.5 mg PO .COMPLEX organ rejection 02/14/23 terazosin 5 mg capsule 5 mg PO QHS BP 02/14/23 albuterol sulfate 90 mcg/actuation aerosol inhaler (Ventolin HFA) 2 puff inhalation Q4H PRN shortness of breath or wheezing #18 grams 03/03/23 bumetanide 1 mg tablet 0.5 mg PO DAILY 03/03/23 metoprolol tartrate 25 mg tablet 25 mg PO BID #60 tabs 03/19/23 dexamethasone 4 mg tablet 4 mg PO BID 03/20/23 Physical Exam Narrative Please see the progress note for the physical exam findings on the same date. Weight / BMI Weight Weight: 186 lb 1.122 oz Body Mass Index (BMI) 26.3 ABG / Lab / Microbiology Data 06/14/23 05:32 06/14/23 05:32 Laboratory: Laboratory Results - last 24 hr 06/14/23 05:32: Differential Comment SCANNED, Anisocytosis 2+, Microcytosis 1+, Macrocytosis 1+ Microbiology: Microbiology 06/08/23 13:34 Blood Culture (Wb) - Chest Blood Culture - Final No growth in 5 days. 06/08/23 12:45 Blood Culture (Wb) - Chest Blood Culture - Final No growth in 5 days. 06/08/23 10:17 Gastric Fluid/Contents Gastric Occult Blood - Final Meaningful Use Info Meaningful Use Diagnoses (Choose all that apply): None applicable Discharge Plan Admission Admit Date/Time: 06/09/23 09:15 Attending Provider: Marshall Mcclure Primary Care Provider: Mikayla Lopez Discharge Orders/Prescriptions Prescriptions: No Action metoprolol tartrate 25 mg tablet 25 mg PO BID Qty: 60 11RF Rx Instructions: 1 tablet via G-tube twice daily bumetanide 1 mg tablet 0.5 mg PO DAILY albuterol sulfate [Ventolin HFA] 90 mcg/actuation HFA aerosol inhaler 2 puff inhalation Q4H PRN (Reason: shortness of breath or wheezing) Qty: 18 6RF prednisone 2.5 MG tablet 5 mg PO DAILY Patient Comments: STEROID insulin aspart U-100 [Novolog FlexPen U-100 Insulin] 100 UNITS/ML insulin pen See Protocol subcut CONT Protocol: 6. Sliding Scale Insulin Custom Condition: mg/dl range Dose/Route: Number of Units Instruction: using insulin pump Protocol Text: Custom Sliding Scale Rx Instructions: insulin pump olanzapine 5 mg tablet 5 mg PO BID Rx Instructions: FOR THREE DAYS AFTER EACH CHEMO tacrolimus [Prograf] 0.5 mg capsule 0.5 mg PO .COMPLEX Rx Instructions: 1mg in AM; 0.5 mg orally qhs; terazosin 5 mg capsule 5 mg PO QHS Jevity 1.5 Victorino 0.06 gram-1.5 kcal/mL liquid 237 ml feeding tube .COMPLEX Patient Comments: 60ML WATER FLUSH BEFORE AND AFTER EACH BOLUS Rx Instructions: 237 mL via feeding tube 0900,1200,1500,1800,2100; ondansetron 8 mg tablet,disintegrating 8 mg PO Q8H PRN (Reason: nausea and vomiting) 30 Days Qty: 30 0RF nystatin 100,000 unit/mL suspension 5 ml PO 4X/DAY Rx Instructions: swish and swallow omeprazole 10 mg capsule,delayed release(DR/EC) See Rx Instructions feeding tube DAILY Rx Instructions: 10ML via feeding tube daily; amiodarone 200 mg tablet 200 mg feeding tube DAILY Qty: 30 11RF rosuvastatin [Crestor] 20 MG tablet 20 mg feeding tube QHS Qty: 1 0RF Patient Comments: decrease cholesterol Eliquis 5 mg tablet 5 mg feeding tube BID Qty: 60 11RF sulfamethoxazole-trimethoprim 1 tab G-tube DAILY Qty: 1 0RF Rx Instructions: 1 tablet daily on m , thursday, thursday dexamethasone 4 mg tablet 4 mg PO BID Rx Instructions: 3 DAYS PRIOR TO AND 1 DAY AFTER CHEMO Referrals / Follow Up: Mikayla Lopez MD [Primary Care Provider] - Disposition Disposition (needs filled in before D/C Order can be placed): DC/Tx to Another Type of HCF Charges/Coding Addendum Addendum: Please cancel the billing charge of the progress note of the same date. Visit Charges Inpatient E&M: 49554 Disch Hosp >30min
--- NOTE | 2023-06-14 18:47 | NURSING ---
Report called to [facility]. Spouse at bedside and is aware of transport and room number.
[2023-06-14] MEDS: Atorvastatin Calcium 40 MG Tablet GT (21:15)
[2023-06-14] MEDS: Tacrolimus 0.5 MG Capsule PO (21:15)
[2023-06-14] MEDS: 0.9 % NaCl (Sterile) Posiflush 10 mL IV ×2 (21:19→21:38)
--- NOTE | 2023-06-14 22:58 | NURSING ---
Report given to transport @ [id number]. DNR paper signed for transport. Pt left unit with belongings and spouse @ [id number] via [facility]
== END 2023-06-14 22:47 | disposition short-term general hospital (02) | DRG 375 ==
LOC: ED 16:16 → PCU 06-09 09:46
PROVIDERS: Admitting Provider Internal Medicine; Emergency Provider Emergency Medicine; PCP Internal Medicine; Visit Provider Internal Medicine
DX: C15.9 Malignant neoplasm of esophagus, unspecified (principal); D62 Acute posthemorrhagic anemia; I13.0 Hypertensive heart and chronic kidney disease with heart failure and stage 1 through stage 4 chronic kidney disease, or unspecified chronic kidney disease; C78.00 Secondary malignant neoplasm of unspecified lung; I50.32 Chronic diastolic (congestive) heart failure; Z94.0 Kidney transplant status; E11.21 Type 2 diabetes mellitus with diabetic nephropathy; D63.0 Anemia in neoplastic disease; E11.22 Type 2 diabetes mellitus with diabetic chronic kidney disease; E11.40 Type 2 diabetes mellitus with diabetic neuropathy, unspecified; I48.0 Paroxysmal atrial fibrillation; Z79.4 Long term (current) use of insulin; Z93.1 Gastrostomy status; E86.0 Dehydration; N18.9 Chronic kidney disease, unspecified; I25.10 Atherosclerotic heart disease of native coronary artery without angina pectoris; E78.5 Hyperlipidemia, unspecified; I25.2 Old myocardial infarction; R53.81 Other malaise; Z66 Do not resuscitate; Z96.41 Presence of insulin pump (external) (internal); Z79.01 Long term (current) use of anticoagulants; Z79.899 Other long term (current) drug therapy; Z87.891 Personal history of nicotine dependence
CPT/HCPCS: 36415; 36591; 71045; 71250; 80048; 80053; 81001; 82271; 82962; 83605; 83690; 85014; 85018; 85025; 85610; 86850; 86900; 86901; 87040; 93005; 94668; 96361; 96374; 97162; 97530; 97802; 97803; 99284; J7030; J7050; J7120; A4216; J2405; J2916